=== PATIENT | female | born 1945 | race Caucasian/White ===

== ENCOUNTER → 2019-09-13 08:53 | Outpatient (BNVA) | payer MEDICARE, OTHER, SELFPAY | PROVIDERS: Family Provider Family Medicine; PCP Family Medicine; Referring Provider Family Medicine; Visit Provider Internal Medicine Rheumatology | DX: L40.0 Psoriasis vulgaris (principal); R74.0 Nonspecific elevation of levels of transaminase and lactic acid dehydrogenase [LDH]; Z79.899 Other long term (current) drug therapy; M81.0 Age-related osteoporosis without current pathological fracture; M76.71 Peroneal tendinitis, right leg; M76.72 Peroneal tendinitis, left leg; M19.041 Primary osteoarthritis, right hand; M19.042 Primary osteoarthritis, left hand | CPT/HCPCS: 36415; 80076; 99214 ==

== ENCOUNTER 2019-10-23 13:25 | Outpatient (CLI) | payer MEDICARE, OTHER, SELFPAY ==
--- NOTE | 2019-10-23 | MR_ITS ---
Chela Rodriguez 1945 MRI RIGHT ANKLE NONCONTRAST TECHNIQUE: Sagittal proton density, sagittal STIR, axial proton density, axial T1, axial T2 fat sat, coronal proton density, coronal proton density fat sat, coronal T2 fat sat. CLINICAL INFORMATION: Perineal tendinitis foot pain for years COMPARISON: None. FINDINGS: Ankle mortise is normal in appearance. No acute fractures. Normal talar dome. Mild degenerative arthritis at the ankle joint with mild degenerative narrowing. Subchondral cystic change involving the lateral malleolus with a degenerative cyst measuring 5 mm. Normal deltoid ligament and ATF. Distal Achilles is normal in appearance. Normal retrocalcaneal bursa. Degenerative cystic change involving the calcaneus at the anterior and middle subtalar facet. Small split tear involving the peroneus brevis with tendinopathy. Small amount of edema overlying the peroneal tendons at the level of the lateral malleolus. Small amount of tendinopathy distally in the peroneus longus. Peroneus longus is intact. Normal extensor and flexor compartment tendons. Tiny amount of tenosynovitis along the tibialis posterior and and flexor hallucis longus at the level of the calcaneus. Mild degenerative changes involving the tarsal bones. Subchondral cystic degenerative change at the TMT joints. Prominent plantar calcaneal spur measuring 12 mm. Normal visualized plantar fascia. Small ganglion cysts along the posterior process talus. IMPRESSION: 1. Small split tear involving the peroneus brevis with tendinopathy. Small amount of edema at the level of the lateral malleolus in the subcutaneous soft tissue. 2. Peroneus longus is intact with a small amount of tendinopathy distally. 3. Tenosynovitis along the tibialis posterior and flexor hallucis longus. 4. A few small ganglion cysts along the posterior process of the talus 5. Mild degenerative arthritis at the ankle mortise with subchondral cystic change involving the lateral malleolus. 6. Edema with subchondral cystic degenerative change involving the calcaneus at the anterior and middle subtalar facet 7. Prominent plantar calcaneal spur measuring 12 mm. MTDD
--- NOTE | 2019-10-23 15:15 | XR_ITS ---
WS: [id number] SCREENING DEXA SCAN [facility] CLINICAL INFORMATION: osteoporosis COMPARISON: August 05, 2016 FINDINGS: The L1-L4 bone mineral density measures 1.228 g/cm2. This corresponds to a T score score of 0.4 and Z score of 1.6. Left femoral neck bone mineral density measures 1.072 g/cm2. This corresponds to a T score of 0.5 and Z score of 1.8. Right femoral neck bone mineral density measures 0.992 g/cm2. This corresponds to a T score -0.1of an d Z score of 1.2. Mean femoral neck bone mineral density measures 1.032 g/cm2. This corresponds to a T score of 0.2 and Z score of 1.5. XR/XR DEXA axial skeleton* [id number] IMPRESSION: Normal bone mineralization. Patient's FRAX calculated 10 year probability for major osteoporotic fracture i s 13.5 % and osteoporotic hip fracture is 3.8%.
--- NOTE | 2019-10-23 18:25 | MR_ITS ---
MRI LEFT ANKLE NONCONTRAST TECHNIQUE: Sagittal proton density, sagittal STIR, axial proton density, axial T1, axial T2 fat sat, coronal proton density, coronal proton density fat sat, coronal T2 fat sat. CLINICAL INFORMATION: Perineal tendinitis COMPARISON: None. FINDINGS: Prominent peroneus brevis split tear with tendinopathy involving the distal peroneus brevis. Tenosynovitis along the peroneal tendon sheath. Small amount of subcutaneous edema overlying the lateral malleolus. Diffuse tendinopathy with thickening involving the peroneus brevis. Distal Achilles is normal in appearance. Normal retrocalcaneal bursa. Tenosynovitis along the flexor hallucis longus. Extensor compartment tendons are normal in appearance. Degenerative arthritis ankle mortise with subchondral cystic change along the distal tibial plafond and lateral malleolus. Normal deltoid ligament. Normal ATF. Talar dome is normal. Chronic appearing well-corticated avulsion along the tip of the medial malleolus with an additional tiny avulsion involving the distal tibial plafond adjacent to the distal fibula. Posterior talar spurring with a small amount of edema along the posterior process of the talus. Prominent plantar calcaneal spur measuring 10 mm. Normal plantar fascia. Mild degenerative arthritis involving the tarsal bones and TMT joints. . IMPRESSION: 1. Prominent peroneus brevis split tear with tenosynovitis along the peroneal tendon sheaths. 2. Diffuse tendinopathy involving the peroneus brevis. Subcutaneous edema at the level of the ankle. 3. Slight tenosynovitis involving the flexor hallucis longus. 4. Prominent plantar calcaneal spur measuring 10 mm. Normal plantar fascia. 5. Moderate degenerative arthritis ankle mortise with subchondral cystic change involving the tibial plafond and lateral malleolus. 6. Well-corticated chronic avulsions involving the tip of the medial malleolus and lateral aspect of the distal tibial plafond. MTDD
== END 2019-10-23 13:26 | disposition home or self-care (01) ==
LOC: RADWPI 13:31
PROVIDERS: Family Provider Family Medicine; PCP Family Medicine; Visit Provider Internal Medicine Rheumatology
DX: M81.0 Age-related osteoporosis without current pathological fracture (principal); M76.71 Peroneal tendinitis, right leg; M76.72 Peroneal tendinitis, left leg; M77.32 Calcaneal spur, left foot; S82.52XA Displaced fracture of medial malleolus of left tibia, initial encounter for closed fracture; X58.XXXA Exposure to other specified factors, initial encounter; M77.31 Calcaneal spur, right foot; R60.9 Edema, unspecified; M19.071 Primary osteoarthritis, right ankle and foot
CPT/HCPCS: 73721; 77080

== ENCOUNTER → 2019-11-13 08:59 | Outpatient (BNVA) | payer MEDICARE, OTHER, SELFPAY | PROVIDERS: Family Provider Family Medicine; PCP Family Medicine; Visit Provider Internal Medicine Rheumatology | DX: L40.0 Psoriasis vulgaris (principal); M15.4 Erosive (osteo)arthritis; M85.88 Other specified disorders of bone density and structure, other site | CPT/HCPCS: 99214; G0463 ==

== ENCOUNTER → 2020-02-13 10:50 | Outpatient (BNVA) | payer MEDICARE, OTHER, SELFPAY | PROVIDERS: Family Provider Family Medicine; PCP Family Medicine; Visit Provider Internal Medicine Rheumatology | DX: L40.0 Psoriasis vulgaris (principal); Z79.899 Other long term (current) drug therapy; L40.50 Arthropathic psoriasis, unspecified; M65.9 Synovitis and tenosynovitis, unspecified; M76.71 Peroneal tendinitis, right leg; M76.72 Peroneal tendinitis, left leg; M19.041 Primary osteoarthritis, right hand; M19.042 Primary osteoarthritis, left hand; R74.0 Nonspecific elevation of levels of transaminase and lactic acid dehydrogenase [LDH]; M85.88 Other specified disorders of bone density and structure, other site | CPT/HCPCS: 36415; 80076; 82565; 84550; 85025; 85651; 86140; 99214 ==

== ENCOUNTER 2020-05-19 09:02 | Outpatient (CLI) | payer MEDICARE, OTHER, SELFPAY ==
[2020-05-19 09:27] VITALS: BMI 32.5
--- NOTE | 2020-05-19 09:27 | ECG_ITS ---
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 Interpretive Statements NAME OF STUDY: EXERCISE SESTAMIBI STRESS TEST INDICATION: Chest Pain Baseline blood pressure of 169/99 mm Hg, heart rate of 60 beats per minute and oxygen saturation 96%. EKG showed normal sinus rhythm, normal axis with possible old septal infarct. Nonspecific ST depression. The patient exercised for 3 minutes 55 seconds on a standard Raheem protocol. Patient attained a maximum heart rate of 145 beats per minute(98 % of the maximum predicted heart rate) with a blood pressure at the peak exercise of 228/76 mm Hg. The EKG at the peak exercise revealed sinus tachycardia with significant artifact. patient did not have any chest pain or any significant arrhythmis with the exercise During the recovery phase, there were no new changes. Blood pressure at the end of the recovery phase was 158/88 mm Hg with a heart rate of 64 beats per minute oxygen saturation 96%. CONCLUSION: 1. Uninterpretable EKG at peak exercise due to artifact. 2. No exercise-induced chest pain or cardiac arrhythmia 3. Decreased exercise tolerance, attained a maximum of 4.6 METs. 4. Baseline hypertension blood pressure with hypertensive response to exercise. 5. Perfusion scan will be documented separately. Electronically Signed On 05-19-2020 18:03:04 CDT by Asha Gibson M.D. [id number]
--- NOTE | 2020-05-19 09:27 | NMCV_ITS ---
NM haider perf SPECT r/s* [id number] Chela Rodriguez Age: 74 Gender: F : 1945 Exam Date: 05/19/2020 10:08 Ordering Phys: Devon Walton MD Technologist: ANAM Ardon Exam Location: [facility] Indications: CHEST PAIN STRESS TEST Please see separate stress test report in [facility] for full findings IMAGE PROTOCOL Rest/Stress 1 Exercise Day Radiopharmaceutical Dose (mCi) Administration Site Administered by Rest: Tc-99m 10.6 IV ANAM Espinoza Sestamibi Stress:Tc-99m 32.7 IV ANAM Espinoza Sestamibi Rest: 19-May-2020 60 Discovery 630 Stress: 19-May-2020 15 Discovery 630 Radiopharmaceutical was injected at 87 % maximum heart rate. Images obtained in supine and prone position. SPECT RESULTS Technical Quality: Good Raw Data Analysis: Breast attenuation Image Corrections: No attenuation or motion correction applied Summed Stress Score: 8 Summed Rest Score: 14 Summed Difference Score: 1 PERFUSION FINDINGS There is a small in size, fixed, apical wall perfusion defect. This improves on prone imaging. Likely attenuation artifact versus prior infarct. There is a moderate in size, fixed inferolateral wall defect. This also improves on prone imaging. This likely represents attenuation artifact. FUNCTIONAL RESULTS (calculated via Gated SPECT) Stress Image LV EF (%): 69 Stress EDV (mL):91 TID: 1.14 Stress ESV (mL):28 FUNCTIONAL FINDINGS: There is normal left ventricular systolic function. IMPRESSIONS 1. Small in size, fixed apical wall perfusion defect. This likely represents attenuation artifact versus prior infarct. 2. Moderate in size, fixed inferolateral wall perfusion defect. This is likely secondary to attenuation artifact. 3. No ischemia is noted 3. Normal LV systolic function with EF of 69%. Cristo Chan MD (Electronically Signed) Final Date: 20 May 2020 17:45 S
[2020-05-19 11:22] VITALS: BP 155/88; PULSE 72
== END 2020-05-19 09:03 | disposition home or self-care (01) ==
LOC: CDL 09:04
PROVIDERS: PCP Family Medicine; Visit Provider Family Medicine
DX: R07.9 Chest pain, unspecified (principal)
CPT/HCPCS: 78452; 93017; A9500

== ENCOUNTER → 2020-07-21 08:55 | Outpatient (BNVA) | payer MEDICARE, OTHER, SELFPAY | PROVIDERS: PCP Family Medicine; Visit Provider Internal Medicine Rheumatology | DX: L40.0 Psoriasis vulgaris (principal); L40.50 Arthropathic psoriasis, unspecified; M65.9 Synovitis and tenosynovitis, unspecified; Z79.899 Other long term (current) drug therapy; M19.041 Primary osteoarthritis, right hand; M19.042 Primary osteoarthritis, left hand; M76.71 Peroneal tendinitis, right leg; M76.72 Peroneal tendinitis, left leg; M77.01 Medial epicondylitis, right elbow; M85.80 Other specified disorders of bone density and structure, unspecified site; Z22.7 Latent tuberculosis | CPT/HCPCS: 99214 ==

== ENCOUNTER → 2020-10-07 11:52 | Outpatient (BNVA) | payer MEDICARE, OTHER, SELFPAY | PROVIDERS: PCP Family Medicine; Visit Provider Student in an Organized Health Care Education/Training Program | DX: Z22.7 Latent tuberculosis (principal); L40.50 Arthropathic psoriasis, unspecified; Z79.899 Other long term (current) drug therapy | CPT/HCPCS: 80076 ==

== ENCOUNTER → 2020-11-04 11:30 | Outpatient (BNVA) | payer MEDICARE, OTHER, SELFPAY | PROVIDERS: PCP Family Medicine; Visit Provider Student in an Organized Health Care Education/Training Program | DX: Z22.7 Latent tuberculosis (principal) | CPT/HCPCS: 80053; 85025 ==

== ENCOUNTER → 2020-12-03 09:02 | Outpatient (BNVA) | payer MEDICARE, OTHER, SELFPAY | PROVIDERS: PCP Family Medicine; Visit Provider Internal Medicine Rheumatology | DX: L40.50 Arthropathic psoriasis, unspecified (principal); L40.0 Psoriasis vulgaris; M15.4 Erosive (osteo)arthritis; M76.71 Peroneal tendinitis, right leg; M76.72 Peroneal tendinitis, left leg; M85.80 Other specified disorders of bone density and structure, unspecified site; R74.01 Elevation of levels of liver transaminase levels; Z79.899 Other long term (current) drug therapy | CPT/HCPCS: 99214 ==

== ENCOUNTER → 2020-12-16 11:32 | Outpatient (BNVA) | payer MEDICARE, OTHER, SELFPAY | PROVIDERS: PCP Family Medicine; Visit Provider Student in an Organized Health Care Education/Training Program | DX: Z22.7 Latent tuberculosis (principal); L40.50 Arthropathic psoriasis, unspecified; L40.9 Psoriasis, unspecified | CPT/HCPCS: 80053 ==

== ENCOUNTER → 2021-02-17 11:42 | Outpatient (BNVA) | payer MEDICARE, OTHER, SELFPAY | PROVIDERS: PCP Family Medicine; Visit Provider Nurse Practitioner Family | DX: Z20.822 Contact with and (suspected) exposure to COVID-19 (principal) | CPT/HCPCS: 87635 ==

== ENCOUNTER → 2021-03-26 08:53 | Outpatient (BNVA) | payer MEDICARE, OTHER, SELFPAY | PROVIDERS: PCP Family Medicine; Visit Provider Internal Medicine Rheumatology | DX: L40.0 Psoriasis vulgaris (principal); L40.50 Arthropathic psoriasis, unspecified; M65.9 Synovitis and tenosynovitis, unspecified; Z79.899 Other long term (current) drug therapy; M19.041 Primary osteoarthritis, right hand; M19.042 Primary osteoarthritis, left hand; M85.80 Other specified disorders of bone density and structure, unspecified site; R74.01 Elevation of levels of liver transaminase levels; Z71.89 Other specified counseling | CPT/HCPCS: 99214 ==

== ENCOUNTER 2021-03-27 10:17 | Outpatient (CLI) | payer MEDICARE, OTHER, SELFPAY ==
[2021-03-27 11:20] LABS: Basophils % 0.6 %; Eosinophils # 0.1 10^3/uL (0.0-0.8); Eosinophils % 2.2 %; Hematocrit 38.8 % (37.0-47.0); Hemoglobin 13.4 g/dL (11.5-15.3); Lymphocytes # 1.8 10^3/uL (0.8-4.8); Lymphocytes % 32.9 %; Mean Corpuscular HGB Conc 34.5 g/dL (30.0-36.0); Mean Corpuscular Hemoglobin 33.3 pg (28.0-34.0); Mean Corpuscular Volume 96.3 fL (81-99); Mean Platelet Volume 10.3 fL (7.4-10.4); Monocytes # 0.4 10^3/uL (0.2-0.9); Monocytes % 7.2 %; Neutrophils # 3.05 10^3/uL (1.8-7.7); Neutrophils % 56.4 %; Nucleated Red Blood Cells % 0 %; Platelet Count 268 10^3/cmm (130-400); Red Blood Count 4.03 10^6/uL (4.1-5.3); Red Cell Distribution Width 13.4 % (12.1-15.1); White Blood Count 5.4 10^3/uL (4.0-10.0)
[2021-03-27 11:49] LABS: Alanine Aminotransferase 45 U/L (0-33); Albumin Level 4.5 g/dL (3.5-5.2); Alkaline Phosphatase 83 IU/L (35-105); Aspartate Amino Transferase 33 U/L (0-32); C Reactive Protein 0.6 mg/L (0.0-4.9); Globulin 2.4 g/dL (1.3-4.6); Total Bilirubin 0.6 mg/dL (0.15-1.2); Total Protein 6.9 g/dL (6.6-8.7)
== END 2021-03-27 10:18 | disposition home or self-care (01) ==
PROVIDERS: PCP Family Medicine; Visit Provider Internal Medicine Rheumatology
DX: L40.50 Arthropathic psoriasis, unspecified (principal); M19.041 Primary osteoarthritis, right hand; M19.042 Primary osteoarthritis, left hand
CPT/HCPCS: 36415; 80076; 82565; 85025; 86140

== ENCOUNTER 2021-06-26 08:44 | Outpatient (CLI) | payer MEDICARE, OTHER, SELFPAY ==
--- NOTE | 2021-06-26 08:56 | XR_ITS ---
WS: [id number] Lumbar spine, 3 views, 06/26/2021 Clinical Data: ACUTE BACK PAIN Comparison: None. Findings: No compression fractures are seen. There is disc space narrowing at L4-L5 and L5-S1. There is an ante rior subluxation of L4 on L5 of 0.4 cm. There is minimal osteoarthritis of the vertebral bodies L1-L5 . Diffuse osteoporosis is seen. The transverse processes and SI joints are normal. There is calcification in the wall of the abdominal aorta but no aneurysm. There are clips in the rig ht upper quadrant from cholecystectomy. XR/XR lumbar spine 2-3V* [id number] Impression: 1. Degenerative disc narrowing at L4-L5 and L5-S1. 2. Minimal osteoarthritis and diffuse osteoporosis. 3. Anterior subluxation of 0.4 cm at L4-L5.
--- NOTE | 2021-06-26 08:57 | XR_ITS ---
WS: [id number] Sacrum and coccyx, 3 views, 06/26/2021 Clinical Data: ACUTE BACK PAIN Comparison: None. Findings: No fractures or dislocations are seen. The SI joints and pubic symphysis are unremarkable. No bone de struction or erosion is seen. XR/XR sacrum coccyx min 2V [id number] Impression: Negative sacrum and coccyx.
== END 2021-06-26 08:45 | disposition home or self-care (01) ==
LOC: RAD 08:50
PROVIDERS: PCP Family Medicine; Visit Provider Family Medicine
DX: M81.0 Age-related osteoporosis without current pathological fracture (principal); M47.816 Spondylosis without myelopathy or radiculopathy, lumbar region; S33.140A Subluxation of L4/L5 lumbar vertebra, initial encounter; X58.XXXA Exposure to other specified factors, initial encounter
CPT/HCPCS: 72100; 72220

== ENCOUNTER → 2021-07-07 09:02 | Outpatient (BNVA) | payer MEDICARE, OTHER, SELFPAY | PROVIDERS: PCP Family Medicine; Visit Provider Internal Medicine Rheumatology | DX: Z79.899 Other long term (current) drug therapy (principal); L40.50 Arthropathic psoriasis, unspecified | CPT/HCPCS: 36415; 80076; 82565; 85025; 86140 ==

== ENCOUNTER → 2021-09-16 11:00 | Outpatient (BNVA) | payer MEDICARE, SELFPAY | PROVIDERS: PCP Family Medicine; Visit Provider Internal Medicine Rheumatology | DX: L40.9 Psoriasis, unspecified (principal); Z79.899 Other long term (current) drug therapy; M19.041 Primary osteoarthritis, right hand; M19.042 Primary osteoarthritis, left hand; Z71.89 Other specified counseling; Z22.7 Latent tuberculosis | CPT/HCPCS: 99214 ==

== ENCOUNTER 2021-12-09 10:08 | Emergency (ER) | payer MEDICARE, SELFPAY ==
[2021-12-09 11:15] VITALS: BP 172/112; PULSE 88; RESP 15; TEMP 36.8; O2SAT 96; BMI 32.0
--- NOTE | 2021-12-09 11:23 | W.ED.BACK ---
HPI - Back Pain/Injury General: Chief Complaint: Back Pain/Injury Stated Complaint: lower back pain/trouble sleeping Time Seen by Provider: 12/09/21 11:23 History of Present Illness: Ms. Rodriguez is a 76-year-old lady with complex past medical history including chronic opioid use secondary to chronic pain, history of DMARD use who presents to the emergency department due to back pain. She reports onset of symptoms approximately 10 days ago which was preceded by being on her feet with uncomfortable shoes at a wedding. She subsequently developed a burning severe pain that radiates from her left SI joint region down the back of her thigh and outside of her leg wrapping down to the bottom of the foot. This is associated with hyperalgia. She saw her PCP and tried home cares and received a steroid shot which provided mild transient relief. She subsequently was given a prescription for steroids and eventually is now been on Celebrex for 3 days. Despite these treatments symptoms have persisted. Denies saddle anesthesia, symptoms are worse at night however no reported new night sweats, no loss of bowel control. No other specific changes in health, exacerbating, or alleviating factors identified. Onset (ago): day(s) Severity: severe Quality: burning Location: lumbar spine and left lower back Radiation: left upper leg and left leg below the knee Exacerbating factors: movement and other Review of Systems General: Reports: 10 or more systems reviewed and unremarkable except in HPI and below PFSH ED PFSH: Medical History High risk medication use Immunization counseling Latent tuberculosis by blood test Osteoarthritis Peroneal tendinitis of both lower legs Psoriasis Psoriatic arthritis Rotator cuff arthropathy of right shoulder Tenosynovitis of ankle Surgical History H/O: hysterectomy History of appendectomy History of cholecystectomy History of tonsillectomy History of tubal ligation Family History Mother Diabetes Hypertension Heart disease Brother Hypertension Sister Hypertension Grandmother Stroke Other Cancer Social History Smoking and tobacco status: never smoked Alcohol intake: never History of recent travel: No Physical Exam Const: COMMON NORMALS: alert GENERAL APPEARANCE: cooperative and well developed HENMT: COMMON NORMALS: normocephalic and atraumatic HEAD & SCALP: normocephalic and atraumatic Eye: COMMON NORMALS: conjunctivae normal CONJUNCTIVA: Yes conjunctivae normal SCLERA: sclerae normal Neck/C-Spine: COMMON NORMALS: supple GENERAL: Yes trachea midline Resp: COMMON NORMALS: normal respiratory effort and clear to auscultation bilaterally EFFORT & INSPECTION: Yes able to speak in complete sentences AUSCULTATION: clear to auscultation bilaterally Cardio: COMMON NORMALS: regular rate and regular rhythm RATE: regular rate RHYTHM: regular rhythm GI: COMMON NORMALS: Soft to palpation PALPATION: Yes Soft to palpation and No Tenderness to palpation present (GI) PERCUSSION: normal to percussion Back/Pelvis: LUMBAR SPINE/LOWER BACK: Yes lumbar spinal tenderness Extremity: GENERAL: Yes normal exam except as noted and No edema Neuro: COMMON NORMALS: moves all extremities, no focal motor deficits and no sensory deficits noted SENSORIUM/ORIENTATION: Yes alert and No Orientation impaired Psych: COMMON NORMALS: mental status grossly normal and Normal thought process present THOUGHT PROCESS: Normal thought process present Skin: NARRATIVE SKIN EXAM: Small papular lesions on ankle consistent with likely insect bite. No vesicles or evidence of shingles. Course ED course: - Patient was seen and evaluated by me at bedside - Patient placed on cardiac monitors, IV access obtained - Initial evaluation notable for exam as above. TTP likely SI joint though some midline tenderness present and patient high risk secondary to medication use. - Labs personally interpreted by me -Symptom treatment ordered - Labs notable for negative urinalysis for obvious cause of symptoms - Imaging notable for degenerative changes including moderate central stenosis and left to right narrowing of thecal sac at L4-L5. Slight impingement on L4 nerve root left and other degenerative changes which have progressed since 2016. - Upon serial reexamination after treatment the patient was improved - Based on patient history, evaluation, and testing as interpreted the most likely cause of the patient's condition is multifactorial likely secondary to CT findings however there are no red flag symptoms associated with patient's pain and therefore further evaluation can be completed in the outpatient setting. - The results of ED evaluation were discussed with the patient including prescriptions and/or symptomatic cares (if applicable) including appropriate and responsible use, followup plan, and return precautions. The patient verbalized understanding and felt safe for discharge. - Patient discharged in satisfactory condition. Note: Click bubbles or prepopulated cruz in note writing are used for assistance with data collection and billing and are inherently more limited than narrative and other text portions of this note. Please use narrative for additional clinical history and defer to narrative/free test for any case of contradictory information. If information appears in only free text or click bubble it should be considered present or absent as reported. Please contact note commercial real estate underwriter for clarifications of clinical information or contradictory information. MDM is a brief summary, contradictory or erroneous seeming information should be clarified and full note should be reviewed. Vital Signs: Vital signs: Vital Signs Temperature 98.2 F 12/09/21 11:15 Pulse Rate 82 12/09/21 14:05 Respiratory Rate 22 H 12/09/21 14:05 Blood Pressure 168/98 12/09/21 14:05 Pulse Oximetry 92 12/09/21 14:05 MDM - Back Pain/Injury Medical Decision Making 76-year-old lady with complex past medical history presenting with left leg radicular pain. Improved with treatment. CT evidence consistent with physical exam findings. No red flag symptoms. Satisfactory for outpatient follow-up. Medical Records I reviewed the patient's medical records. Labs I reviewed the patient's lab results. Radiology Impressions Lumbar Spine CT 12/09/21 11:55 IMPRESSION: 1. Mild lumbar curve. No acute compression. 2. Grade 1 anterolisthesis L4 on L5 with moderate central canal stenosis and LEFT to RIGHT narrowing of the thecal sac. This is progressed compared to 2016. This can be followed up with MRI. 3. Slight narrowing of the LEFT subarticular recess L3-L4 with slight impingement traversing LEFT L4 nerve root. 4. Mild LEFT L3-L4 and RIGHT L4-L5 foraminal narrowing. 5. Advanced facet arthropathy L4-L5 and L5-S1. Laboratory Results Urine Color Yellow (Yellow) 12/09/21 12:10 Urine Appearance Clear (CLEAR) 12/09/21 12:10 Urine pH 6.5 (5-7) 12/09/21 12:10 Ur Specific [place] 1.010 (1.005-1.030) 12/09/21 12:10 Urine Protein 1+ (Negative) H 12/09/21 12:10 Urine Glucose (UA) 2+ (Normal) H 12/09/21 12:10 Urine Ketones Negative (Negative) 12/09/21 12:10 Urine Blood Neg (Negative) 12/09/21 12:10 Urine Nitrate Negative (Negative) 12/09/21 12:10 Urine Bilirubin Neg (Negative) 12/09/21 12:10 Urine Urobilinogen Neg mg/dL (Negative) 12/09/21 12:10 Ur Leukocyte Esterase Negative (Negative) 12/09/21 12:10 Urine RBC Rare /hpf (0-2) 12/09/21 12:10 Urine WBC Rare /hpf (0-5) 12/09/21 12:10 Ur Squamous Epith Cells Rare /hpf (0-5) 12/09/21 12:10 Amorphous Sediment Not Reportable 12/09/21 12:10 Urine Bacteria None /hpf (NONE) 12/09/21 12:10 Discharge Plan Discharge Patient Disposition: Home Clinical Impression: Back pain, Lumbar radiculopathy Condition: Stable Prescriptions: New oxycodone 5 mg tablet 5 mg PO Q6H PRN (Reason: pain) Qty: 20 0RF methocarbamol 750 mg tablet 750 mg PO Q6H Qty: 20 0RF No Action aspirin 325 mg tablet 325 mg PO DAILY 0RF glimepiride [Amaryl] 4 mg tablet 4 mg PO BID 0RF furosemide 40 mg tablet 40 mg PO BID 0RF hydrocodone-acetaminophen 7.5-325 mg tablet See Rx Instructions .ROUTE Q6H PRN0RF Rx Instructions: 1-2 tabs every 6 hours PRN; spironolactone 25 mg tablet 25 mg PO DAILY 0RF cholecalciferol (vitamin D3) 1,000 unit capsule 1,000 unit PO BID 0RF cetirizine [Zyrtec] 10 mg tablet 5 mg PO DAILY 0RF metformin 500 mg tablet 1,000 mg PO DAILY 0RF potassium chloride 20 mEq packet 20 meq PO DAILY 0RF hydroxychloroquine 200 mg tablet 200 mg PO BID Qty: 60 3RF ondansetron HCl [Zofran] 4 mg tablet 4 mg PO Q8H PRN (Reason: nausea and vomiting) Qty: 30 0RF methotrexate sodium 2.5 mg tablet 10 mg PO .once a week Qty: 20 3RF Xeljanz 5 mg tablet 5 mg PO BID Qty: 60 3RF folic acid 1 mg tablet 1 mg PO DAILY Qty: 90 1RF Discharge Orders: Discharge ED (Routine); Ordered 12/09/21 Ordered By: Venkat Shannon Referrals: Devon Walton MD [Primary Care Provider] - Discharge Diet: Usual diet Discharge Activity: Increase activity as tolerated Patient Instructions: Lumbar Radiculopathy (ED), Opioid Safety Activity Restrictions/Additional Instructions: Thank you for visiting the emergency department. You were seen and evaluated for leg pain and back pain. This most likely is secondary to a lumbar radiculopathy which is irritation of the nerves which cause pain. As discussed, you do have degenerative changes in your spine however based on history and exam I do not believe that there is no indication for hospitalization. Please follow-up with your primary care provider. Please follow-up with pain management. I will place a case management referral for follow-up with orthopedic spine if desired. Please return to the emergency department for uncontrolled pain, new inability to control bowel or bladder, numbness in a distribution between your legs or groin area, or anything else that you are concerned about and feel needs emergency department evaluation. Coding Level of Care Code ED Audio Visual Engineer for Chg Fwd Exam Comprehensive
--- NOTE | 2021-12-09 11:55 | CT_ITS ---
WS: [id number] CT LUMBAR SPINE TECHNIQUE: Noncontrast CT of the lumbar spine with coronal and sagittal reformatted images. CLINICAL INFORMATION: acute on chronic back pain, L radiculopathy COMPARISON: MRI 2016 DLP: 2150.[address] scans at [facility] use at least one of these dose optimization techniques: automated e xposure control; mA and/or kV adjustment per patient size (includes targeted exams where dose is matc hed to clinical indication); or iterative reconstruction. FINDINGS: Mild lumbar curve. No acute compression. Grade 1 anterolisthesis L4 on L5. This is unchanged compared to 2016. Grade 1 anterolisthesis measures 4.3 mm. No acute compression fractures. Disc space narrowing worse L5-S1 with vacuum disc phenomenon. L1-L2: Slight retrolisthesis. Mild annular bulging with slight effacement of ventral thecal sac. Mild narrowing of the subarticular recess bilaterally. Moderate facet arthropathy. Foramen are patent. L2-L3: Mild annular bulging. Slight narrowing of the subarticular recess bilaterally. Moderate facet arthropathy with ligamentum flavum hypertrophy. Foramen are patent. L3-L4: Mild annular bulging with slight effacement of ventral thecal sac. Slight narrowing of the LEF T subarticular recess with slight impingement traversing LEFT L4 nerve root. Moderate facet arthropat hy. Mild bilateral foraminal narrowing LEFT greater than RIGHT. L4-L5: Moderate central canal stenosis with LEFT to RIGHT narrowing of the thecal sac. Impingement tr aversing L5 nerve roots bilaterally. Advanced facet arthropathy with ligamentum flavum flavum hypertr ophy. Mild RIGHT foraminal narrowing. Central canal stenosis appears progressed compared to 2016. L5-S1: Mild disc bulging with slight effacement of ventral thecal sac. Mild LEFT foraminal narrowing. Moderate to advanced facet arthropathy. Spinal canal is patent. Adrenal glands are normal. Aortic calcification. Normal caliber abdominal aorta. CT/CT lumbar spine wo con* [id number] IMPRESSION: 1. Mild lumbar curve. No acute compression. 2. Grade 1 anterolisthesis L4 on L5 with moderate central canal stenosis and L EFT to RIGHT narrowing of the thecal sac. This is progressed compared to 2016. This can be followed up with MRI. 3. Slight narrowing of the LEFT subarticular recess L3-L4 with slight impingem ent traversing LEFT L4 nerve root. 4. Mild LEFT L3-L4 and RIGHT L4-L5 foraminal narrowing. 5. Advanced facet arthropathy L4-L5 and L5-S1.
[2021-12-09] MEDS: methocarbamol 750 mg Tablet PO (12:02)
[2021-12-09 12:03] VITALS: RESP 17
[2021-12-09] MEDS: morphine 4 mg/mL SDV 1 mL IM (12:03)
[2021-12-09] MEDS: ketorolac 30 mg/mL INJ IM (12:03)
[2021-12-09 13:04] LABS: Add Urine Microscopic? YES; Bilirubin Urine Neg (Negative); Blood Urine Neg (Negative); Glucose Urine UA 2+ (Normal); Ketones Urine Negative (Negative); Leukocyte Esterase Urine Negative (Negative); Nitrate Urine Negative (Negative); Protein Urine 1+ (Negative); Urine Appearance Clear (CLEAR); Urine Color Yellow (Yellow); Urobilinogen Urine Neg (Negative); pH Urine 6.5 (5-7)
[2021-12-09 13:05] LABS: Add Urine Culture? No; RBC Urine RARE /hpf (0-2); Squamous Epithelial Cell Urine RARE /hpf (0-5); WBC Urine RARE /hpf (0-5)
[2021-12-09 14:05] VITALS: BP 168/98; PULSE 82; RESP 22; O2SAT 92
== END 2021-12-09 14:07 | disposition home or self-care (01) ==
PROVIDERS: Emergency Provider Emergency Medicine; PCP Family Medicine
DX: M54.50 Low back pain, unspecified (principal); M54.16 Radiculopathy, lumbar region
CPT/HCPCS: 72131; 81001; 96372; J1885; J2270

== ENCOUNTER 2022-01-11 11:11 | Outpatient (CLI) | payer MEDICARE, SELFPAY ==
[2022-01-11 11:41] LABS: Basophils % 0.5 %; Eosinophils # 0.1 10^3/uL (0.0-0.8); Eosinophils % 1.5 %; Hematocrit 38.6 % (37.0-47.0); Hemoglobin 13.3 g/dL (11.5-15.3); Lymphocytes # 2.3 10^3/uL (0.8-4.8); Lymphocytes % 28.3 %; Mean Corpuscular HGB Conc 34.5 g/dL (30.0-36.0); Mean Corpuscular Hemoglobin 33.3 pg (28.0-34.0); Mean Corpuscular Volume 96.5 fl (81-99); Monocytes # 0.7 10^3/uL (0.2-0.9); Monocytes % 8.7 %; Neutrophils # 4.77 10^3/uL (1.8-7.7); Neutrophils % 60.1 %; Nucleated Red Blood Cells % 0 %; Platelet Count 340 10^3/cmm (130-400); Red Cell Distribution Width 14.1 % (12.1-15.1); White Blood Count 7.9 10^3/uL (4.0-10.0)
[2022-01-11 12:17] LABS: Alanine Aminotransferase 28 U/L (0-33); Albumin Level 4.6 g/dL (3.5-5.2); Alkaline Phosphatase 67 IU/L (35-105); Aspartate Amino Transferase 27 U/L (0-32); Total Bilirubin 0.4 mg/dL (0.15-1.2); Total Protein 7.6 g/dL (6.6-8.7)
== END 2022-01-11 11:12 | disposition home or self-care (01) ==
LOC: LAB 11:14
PROVIDERS: PCP Family Medicine; Visit Provider Internal Medicine Rheumatology
DX: M19.90 Unspecified osteoarthritis, unspecified site (principal); Z79.899 Other long term (current) drug therapy; L40.50 Arthropathic psoriasis, unspecified; L40.9 Psoriasis, unspecified
CPT/HCPCS: 80076; 82565; 85025; 86140

== ENCOUNTER → 2022-01-13 09:17 | Outpatient (BNVA) | payer MEDICARE, SELFPAY | PROVIDERS: PCP Family Medicine; Visit Provider Internal Medicine Rheumatology | DX: L40.50 Arthropathic psoriasis, unspecified (principal); L40.9 Psoriasis, unspecified; M19.041 Primary osteoarthritis, right hand; M19.042 Primary osteoarthritis, left hand; R76.12 Nonspecific reaction to cell mediated immunity measurement of gamma interferon antigen response without active tuberculosis; R74.01 Elevation of levels of liver transaminase levels; M85.80 Other specified disorders of bone density and structure, unspecified site; Z79.899 Other long term (current) drug therapy | CPT/HCPCS: 99214 ==

== ENCOUNTER 2022-01-13 14:02 | Outpatient (CLI) | payer MEDICARE, SELFPAY ==
--- NOTE | 2022-01-13 14:15 | USCV_ITS ---
Chela Rodriguez Age: 76 Gender: F : 1945 Exam Date: 01/13/2022 14:22 Ordering Phys: Guanakito Kemp MD Technologist: JUDI Exam Location: [facility] Indication: LLE PAIN AND SWELLING HISTORY: Lower extremity swelling. Lower extremity pain. PROCEDURES: Venous duplex imaging was performed in only the left lower extremity. The following venous structures were evaluated: common femoral vein, profunda vein, proximal portion of the greater saphenous vein, superficial femoral vein, and the popliteal vein. In addition, the posterior tibial and peroneal trunk were evaluated. Serial compression, augmentation maneuvers, and spectral Doppler flow evaluation were performed. FINDINGS: Normal 2-D Doppler and augmentation and compressibility throughout the lower extremity venous structures. Additional imaging through the proximal calf veins also reveals no thrombus. Limited evaluation of the greater saphenous vein is patent with no thrombus. CONCLUSIONS No DVT left lower extremity. Dr. Pattie Michelle DO (Electronically Signed) Final Date: 13 Jan 2022 16:45 S
== END 2022-01-13 14:03 | disposition home or self-care (01) ==
LOC: RAD 14:06
PROVIDERS: PCP Family Medicine; Visit Provider Internal Medicine Rheumatology
DX: I82.409 Acute embolism and thrombosis of unspecified deep veins of unspecified lower extremity (principal); M79.662 Pain in left lower leg; R60.0 Localized edema
CPT/HCPCS: 93971

== ENCOUNTER → 2022-01-28 08:57 | Outpatient (BNVA) | payer MEDICARE, SELFPAY | PROVIDERS: PCP Family Medicine; Referring Provider Family Medicine; Visit Provider Orthopaedic Surgery | DX: M43.16 Spondylolisthesis, lumbar region (principal) | CPT/HCPCS: 99204 ==

== ENCOUNTER 2022-03-19 14:30 | Outpatient (CLI) | payer MEDICARE, SELFPAY ==
--- NOTE | 2022-03-19 15:15 | MR_ITS ---
WS: [id number] MRI LUMBAR SPINE NONCONTRAST TECHNIQUE: Sagittal T1, T2 and STIR imaging. Axial T1 and T2 imaging. CLINICAL INFORMATION: low back pain COMPARISON: MRI 4 2015 FINDINGS: Mild lumbar curve. No acute compression. Grade 1 anterolisthesis L4 on L5 measuring 5 mm unchanged fr om previous. No high-grade central canal stenosis. L1-L2: Slight retrolisthesis. Mild annular bulging. Slight narrowing of the RIGHT subarticular recess . Mild facet arthropathy. Spinal canal is patent. L2-L3: Mild annular bulging. Mild facet arthropathy. Spinal canal and foramen are patent. L3-L4: Mild annular bulging. Impingement on the LEFT subarticular recess and traversing LEFT L4 nerve root. Mild LEFT foraminal narrowing. RIGHT foramen is patent. Mild facet arthropathy. L4-L5: Grade 1 anterolisthesis. Mild disc bulging with impingement on the RIGHT subarticular recess a nd traversing RIGHT L5 nerve root. Moderate facet arthropathy. Mild RIGHT foraminal narrowing. L5-S1: Mild disc osteophytic ridging. Moderate facet arthropathy. Spinal canal and foramen are patent . Small disc osteophyte protrusions in the cervical spine at C5-C6 and C6-C7. Small central protrusion T7-T8 in the mid cervical spine. Tiny RIGHT renal cyst. MR/MR lumbar spine wo con* [id number] IMPRESSION: 1. Mild lumbar curve. No acute compression. No high-grade central canal stenos is. 2. Stable grade 1 anterolisthesis L4 on L5 with impingement traversing right L 5 nerve root in the subarticular recess. This appears slightly progressed gustavo red to previous. 3. Shallow subarticular disc bulging LEFT L3-L4 impinges the traversing LEFT L 4 nerve root in the subarticular recess. This is progressed compared to previou s. Mild LEFT L3-L4 foraminal narrowing is also progressed. 4. Slight narrowing of the RIGHT L2-L3 subarticular recess with mild RIGHT for aminal narrowing. This is also progressed compared to previous.
== END 2022-03-19 14:31 | disposition home or self-care (01) ==
LOC: RAD 14:35
PROVIDERS: PCP Family Medicine; Visit Provider Orthopaedic Surgery
DX: M54.50 Low back pain, unspecified (principal)
CPT/HCPCS: 72148

== ENCOUNTER → 2022-05-18 10:57 | Outpatient (BNVA) | payer MEDICARE, SELFPAY | PROVIDERS: PCP Family Medicine; Visit Provider Internal Medicine Rheumatology | DX: L40.50 Arthropathic psoriasis, unspecified (principal); Z79.899 Other long term (current) drug therapy; Z71.89 Other specified counseling; L40.0 Psoriasis vulgaris; M15.4 Erosive (osteo)arthritis; R74.01 Elevation of levels of liver transaminase levels; M85.80 Other specified disorders of bone density and structure, unspecified site; G93.89 Other specified disorders of brain | CPT/HCPCS: 99214 ==

== ENCOUNTER → 2022-06-03 08:06 | Outpatient (BNVA) | payer MEDICARE, SELFPAY | PROVIDERS: PCP Family Medicine; Visit Provider Family Medicine | DX: Z79.899 Other long term (current) drug therapy (principal); L40.50 Arthropathic psoriasis, unspecified | CPT/HCPCS: 80076; 82565; 85025; 86140 ==

== ENCOUNTER → 2022-09-22 10:33 | Outpatient (BNVA) | payer MEDICARE, SELFPAY | PROVIDERS: PCP Family Medicine; Visit Provider Internal Medicine Rheumatology | DX: L40.50 Arthropathic psoriasis, unspecified (principal); Z79.899 Other long term (current) drug therapy; L40.9 Psoriasis, unspecified; Z71.89 Other specified counseling | CPT/HCPCS: 80076; 82565; 83735; 84132; 85025; 86140; 99214 ==

== ENCOUNTER → 2022-12-29 13:51 | Outpatient (BNVA) | payer MEDICARE, SELFPAY | PROVIDERS: PCP Family Medicine; Visit Provider Internal Medicine Rheumatology | DX: L40.50 Arthropathic psoriasis, unspecified (principal); Z79.899 Other long term (current) drug therapy; L40.9 Psoriasis, unspecified; Z71.89 Other specified counseling | CPT/HCPCS: 99214 ==

== ENCOUNTER 2023-03-22 07:47 | Outpatient (RCR) | payer MEDICARE, SELFPAY | END 2023-04-04 23:59 | disposition home or self-care (01) | LOC: SPT 07:47 | PROVIDERS: PCP Family Medicine; Visit Provider Family Medicine | DX: M54.9 Dorsalgia, unspecified (principal); M25.559 Pain in unspecified hip | CPT/HCPCS: 97161 ==

== ENCOUNTER → 2023-03-30 13:38 | Outpatient (BNVA) | payer MEDICARE, SELFPAY | PROVIDERS: PCP Family Medicine; Visit Provider Internal Medicine Rheumatology | DX: L40.50 Arthropathic psoriasis, unspecified (principal); Z79.899 Other long term (current) drug therapy; L40.9 Psoriasis, unspecified; Z71.89 Other specified counseling | CPT/HCPCS: 82565; 85025; 86140; 99214 ==

== ENCOUNTER 2023-04-05 06:00 | Outpatient (RCR) | payer MEDICARE, SELFPAY | END 2023-05-05 23:59 | disposition home or self-care (01) | LOC: SPT 06:00 | PROVIDERS: PCP Family Medicine; Visit Provider Family Medicine | DX: M54.9 Dorsalgia, unspecified (principal); M25.559 Pain in unspecified hip; G89.29 Other chronic pain | CPT/HCPCS: 97110 ==

== ENCOUNTER 2023-05-06 06:00 | Outpatient (RCR) | payer MEDICARE, SELFPAY | END 2023-06-04 23:59 | disposition home or self-care (01) | LOC: SPT 06:00 | PROVIDERS: PCP Family Medicine; Visit Provider Family Medicine | DX: M54.50 Low back pain, unspecified (principal) | CPT/HCPCS: 97110 ==

== ENCOUNTER 2023-10-01 13:59 | Inpatient (IN) | payer MEDICARE, SELFPAY ==
[2023-10-01] VITALS (7 sets, daily range): BP systolic 132–150; BP diastolic 78–92; PULSE 75–105; RESP 18–28; TEMP 37; O2SAT 95–97; BMI 31.8; BMI 34.0
--- NOTE | 2023-10-01 14:12 | ECG_ITS ---
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 Measurements Intervals [place] Rate: 98 P: 0 NC: 0 QRS: 87 QRSD: 93 T: 66 QT: 360 QTc: 462 Interpretive Statements Multifocal atrial rhythm MODERATE ST DEPRESSION [0.05+ mV ST DEPRESSION] INTERPRETATION BASED ON A DEFAULT AGE OF 40 YEARS Compared to ECG 10/25/2014 09:46:06 ST (T wave) deviation now present Sinus bradycardia no longer present T-wave abnormality no longer present Electronically Signed On 10-01-2023 21:57:36 WATER PIPE INSTALLER by Jade Vargas M.D. [id number]
--- NOTE | 2023-10-01 14:12 | XRR_ITS ---
PROCEDURE INFORMATION: Exam: XR Chest Exam date and time: 10/01/2023 2:52 PM Age: 78 years old Clinical indication: Pain; Chest pressure; Additional info: Chest pain TECHNIQUE: Imaging protocol: Radiologic exam of the chest. Views: 1 view. COMPARISON: CR XR chest 2V* [id number] 01/25/2019 11:03 AM FINDINGS: Lungs: Increased interstitial lung markings along the periphery of both lungs. No consolidation. Pleural spaces: No pleural effusion. No pneumothorax. Heart/Mediastinum: No cardiomegaly. Bones/joints: Unremarkable. XR/XR chest 1V portable [id number] IMPRESSION: Increased interstitial lung markings most suggestive of pulmonary edema.
[2023-10-01 14:43] LABS: Basophils # 0.1 10^3/uL (0.0-0.1); Basophils % 0.4 %; Eosinophils % 0.2 %; Hematocrit 43.4 % (36-47); Lymphocytes # 1.4 10^3/uL (0.8-4.8); Lymphocytes % 8.7 %; Mean Corpuscular HGB Conc 34.8 g/dL (30-55); Mean Corpuscular Hemoglobin 32.2 pg (27-33); Mean Corpuscular Volume 92.5 fl (85-98); Mean Platelet Volume 10.6 fL (7.4-10.4); Monocytes # 0.8 10^3/uL (0.2-0.9); Monocytes % 5.4 %; Neutrophils # 13.16 10^3/uL (1.8-7.7); Neutrophils % 84.8 %; Nucleated Red Blood Cells % 0 %; Platelet Count 270 10^3/cmm (157-399); Red Blood Count 4.69 10^6/uL (3.85-5.65); Red Cell Distribution Width 13.1 % (12.1-15.1); White Blood Count 15.51 10^3/uL (3.29-11.43)
[2023-10-01 14:45] LABS: Influenza A by IFA negative (Negative); Influenza B by IFA negative (Negative); SARS Covid-2 Antigen negative (Negative)
[2023-10-01 14:53] LABS: INR 1.02 (0.8-1.2)
[2023-10-01 15:02] LABS: Troponin(5th) Baseline 181 ng/L (0-10)
[2023-10-01 15:08] LABS: Alanine Aminotransferase 18 U/L (0-33); Albumin Level 4.4 g/dL (3.5-5.2); Alkaline Phosphatase 68 U/L (35-105); Anion Gap 21.6 (5-19); Aspartate Amino Transferase 27 U/L (0-32); Blood Urea Nitrogen 22 mg/dL (8-23); Calcium 10.2 mg/dL (8.5-10.5); Carbon Dioxide 28 mmol/L (22-29); Chloride 92 mmol/L (98-107); Glucose 425 mg/dL (65-115); Magnesium 1.7 mg/dL (1.7-2.3); NT Pro B Type Natriuretic Pept 2172 pg/mL (0-450); Osmolality Calculated 307 mOsm/kg (285-295); Potassium 3.6 mmol/L (3.5-5.1); Sodium 138 mmol/L (136-145); Total Bilirubin 0.7 mg/dL (0.15-1.2); Total Protein 7.4 g/dL (6.6-8.7)
[2023-10-01] MEDS: aspirin 81 mg Chew Tablet 324 MG PO (15:10)
[2023-10-01] MEDS: ondansetron 2 mg/ML SDV 2 mL 4 MG IVP (15:10)
[2023-10-01] MEDS: nitroglycerin 1 gm/inch oint Pkt 1 INCH TOPICAL (15:10)
[2023-10-01] MEDS: heparin 5,000 unit/mL INJ 1 mL 4000 UNIT IVP (15:30)
[2023-10-01] MEDS: heparin drip 25,000 UNIT/500 ML PREMIX 22.1 UNIT IV (15:48)
--- NOTE | 2023-10-01 16:00 | ED_ITS ---
HPI - Chest Pain 2 General: Chief Complaint: Chest Pain Stated Complaint: n/v, chest tighteness Time Seen by Provider: 10/01/23 14:14 History of Present Illness: 78-year-old female presents emergency de partment with complaints of substernal chest pain that started approximate 11 AM while she was walking through [employer] doing her normal shopping. She states she also had an episode of nausea and vomiting where she vomited on herself. She states she also became short of breath after she vomited. 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 She states that her chest pain was a 6 out of 10 and nonradiating. She is accompanied by her daughter who states that the patient has had increased intermittent chest pain worsening over the previous 1 week. She does have a history of atrial fibrillation and takes nothing for rate control or anticoagulation. Associated symptoms: Reports dyspnea, nausea and vomiting Review of Systems 2 General: Reports: 10 or more systems reviewed and unremarkable except in HPI and below Card: Reports: chest pain and irregular heart rhythm Resp: Reports: dyspnea GI: Reports: nausea and vomiting PFS ED 2 PFSH: Medical History Latent tuberculosis Completed treatment in 2020 Diabetes mellitus type 2, controlled Shingles Immunization counseling Latent tuberculosis by blood test Tenosynovitis of ankle Psoriatic arthritis High risk medication use Peroneal tendinitis of both lower legs Osteoarthritis Rotator cuff arthropathy of right shoulder Psoriasis Surgical History History of eye surgery Removal of scar tissue History of tonsillectomy History of appendectomy History of tubal ligation History of cholecystectomy H/O: hysterectomy Family History Mother Diabetes Hypertension Heart disease Brother Hypertension Sister Hypertension Grandmother Stroke Other Cancer Social History Smoking and tobacco/nicotine status: never used tobacco/nicotine Alcohol intake: never Substance/Drug Use: never Physical Exam 2 Narrative: EXAM NARRATIVE: Constitutional: the patient appears well nourished and with normal development. Vital signs reviewed as documented. HENMT: Normocephalic, atraumatic. External ears normal appearance without drainage. Nose without drainage, normal appearance. Mucus membranes moist. Neck is supple, No jugular venous distension, trachea is midline, no appreciable carotid bruits. No lymphadenopathy. No meningeal signs. Flexion, extension and lateral rotation is without pain. Eyes: Pupils are equal, round, reactive to light and accommodation. No scleral icterus. Extra-ocular movement are intact. Thorax is symmetrical and with equal rise and fall with respirations. Resp: Coarse bilaterally. Increased work of breathing requiring supplemental oxygen. Cardio: Irregularly irregular rate and rhythm-currently rate controlled. Positive S1, S2. No appreciable murmurs, rubs or gallops. GI: Abdominal exam reveals normal bowel sounds to all quadrants. No organomegaly. No obvious palpable masses noted. No hepatomegally appreciated. Soft, non-tender to palpation. Extremity: Extremities are non-edematous and both femoral and pedal pulses are 2+ and equal bilaterally. Moves all extremities well, sensation in all extremities. Neuro: Alert and oriented x4, person, place, time and situation. Cranial nerves II through XII are grossly intact, there is no focal neurological deficits that I can appreciate at present. Motor strength in the upper and lower extremities are equal and bilateral 5/5. Psych: Cooperative, calm, normal thought process, appropriate judgment. Skin: No lesions, rashes. No gross abnormalities noted. Back: Symmetrical, no obvious deformity, No CVA tenderness Course 2 Vital Signs: Vital signs: Vital Signs Temperature 98.7 F 10/02/23 16:00 Pulse Rate 93 10/02/23 16:00 Respiratory Rate 21 H 10/02/23 16:00 Blood Pressure 151/123 10/02/23 16:00 Pulse Oximetry 96 10/02/23 16:00 Oxygen Delivery Me thod Nasal Cannula 10/02/23 16:00 Oxygen Flow Rate 2 10/02/23 09:03 MDM - Chest Pain Medical Decision Making Physical exam completed and documented, I will obtain serial cardiac enzymes, serial twelve-lead EKGs, chest x-ray, CBC, CMP, urinalysis, B-type natriuretic peptide, PT/PTT/INR, and a chest x-ray. I will provide cardiac dose aspirin and nitroglycerin administration . After review of the twelve-lead EKG I will also provide loading dose of heparin and heparin drip as well as Plavix. I have reviewed any previous and pertinent medical records for assist in obtaining beneficial medical information to improved the care and treatment of the patient. I will consult the hospitalist for consultation and and at the request of the hospitalist I will obtain cardiology consultation. Lab Data I reviewed the patient's lab results. 10/02/23 03:04 10/02/23 11:55 Radiology Impressions Chest X-Ray 10/01/23 14:12 IMPRESSION: Increased interstitial lung markings most suggestive of pulmonary edema. Chest CT 10/01/23 17:17 IMPRESSION: 1. Patchy bilateral airspace infiltrates. 2. Scattered subcentimeter short axis nonspecific mediastinal lymph nodes. 3. Moderate bilateral pleural effusions. 4. Coronary artery atherosclerotic calcifications. 5. Cardiomegaly. 6. Cholecystectomy. 7. Ascending thoracic aorta dilated to 4.2 cm. Abdomen/Pelvis CT 10/02/23 08:02 IMPRESSION: No acute abdominal findings. Small bilateral pleural effusions. Laboratory Results Lactic Acid 3.9 mmol/L (0.5-2.2) H 10/01/23 14:34 Prolactin 19.79 ng/mL (4.8-23.3) 10/01/23 14:34 Influenza Type A Ag negative (Negative) 10/01/23 14:24 Influenza Type B Ag negative (Negative) 10/01/23 14:24 SARS-CoV-2 Ag (Rapid) negative (Negative) 10/01/23 14:24 All radiology interpretation(s) finalized by discharge EKG Data EKG 1: Interpretation: Twelve-lead EKG obtained at 1406 and reviewed at 1408 demonstrates atrial fibrillation ventricular rate of 98 bpm QRS duration 93, QT 360, QTc 416 there is concern for ST depression in the lead V3, V4, V5 and V6 given her controlled rate, these findings are concerning for non-ST elevated myocardial infarction EKG 2: Interpretation: Twelve-lead EKG obtained at 1601 and reviewed at 1602 demonstrates atrial fibrillation rate controlled a ventricular rate of 84 bpm, QRS duration 95 QT 367 QTc [address] depression in V5 and V6 to indicate septal non-ST elevated myocardial infarction Critical Care Time 2 Critical Care Time: Critical Care Time: Yes Total Critical Care Time: 60 Attestation: The patients was emergently evaluated as this patient's presentation and case had a high probability of a clinically significant, sudden, or life threatening deterioration of this patient's initial critical presentation or condition which required my full and direct attention, intervention and personal management. Discharge Plan Discharge Patient Disposition: Admitted As Inpatient Admit Provider: Fermin Gomez Clinical Impression: Acute non-ST elevation myocardial infarction (NSTEMI) Condition: Stable Coding Level of Care Code ED Supervisor Sleeping Bag Department for Jan Tran
--- NOTE | 2023-10-01 16:01 | ECG_ITS ---
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 Measurements Intervals [place] Rate: 84 P: 0 TX: 0 QRS: 87 QRSD: 95 T: 67 QT: 367 QTc: 434 Interpretive Statements Multifocal atrial rhythm Diffuse nonspecific T wave changes Elías SEPTAL MYOCARDIAL INFARCTION , OF INDETERMINATE AGE [40+ ms Q WAVE IN V1/V2] Compared to ECG 10/01/2023 14:06:58 Myocardial infarct finding now present ST (T wave) deviation no longer present Electronically Signed On 10-01-2023 22:01:21 AERONAUTICS TEACHER by Jade Vargas M.D. [id number]
[2023-10-01 16:21] LABS: Lactic Sepsis W/Reflex 3.9 mmol/L (0.5-2.2)
[2023-10-01 16:31] LABS: Prolactin 19.79 ng/mL (4.8-23.3)
[2023-10-01] MEDS: clopidogrel 300 mg Tablet PO (16:41)
--- NOTE | 2023-10-01 17:17 | CTR_ITS ---
PROCEDURE INFORMATION: Exam: CT Chest Without Contrast; Diagnostic Exam date and time: 10/01/2023 10:21 PM Age: 78 years old Clinical indication: Shortness of breath; Prior surgery; Surgery date: 6+ months; Surgery type: Gb; Patient HX: SOB with hypoxia. Wbc of 15k. Pulmonary edema noted on cxr. ; Additional info: Hypoxia, possible pna TECHNIQUE: Imaging protocol: Diagnostic computed tomography of the chest without contrast. Radiation optimization: All CT scans at this facility use at least one of these dose optimization techniques: automated exposure control; mA and/or kV adjustment per patient size (includes targeted exams where dose is matched to clinical indication); or iterative reconstruction. COMPARISON: CR (CHEST, ) 10/01/2023 2:52 PM RADIATION DOSE METRICS: Total DLP (mGy-cm): 568.82 FINDINGS: Lungs: Patchy bilateral airspace infiltrates. Pleural spaces: Moderate bilateral pleural effusions. Heart: Cardiomegaly. Coronary arteries: Coronary artery atherosclerotic calcifications. Lymph nodes: Scattered subcentimeter short axis nonspecific mediastinal lymph nodes. Vasculature: Ascending thoracic aorta dilated to 4.2 cm. Gallbladder and bile ducts: Cholecystectomy. Bones/joints: Unremarkable. No acute fracture. Soft tissues: Unremarkable. CT/CT chest wo con [id number] IMPRESSION: 1. Patchy bilateral airspace infiltrates. 2. Scattered subcentimeter short axis nonspecific mediastinal lymph nodes. 3. Moderate bilateral pleural effusions. 4. Coronary artery atherosclerotic calcifications. 5. Cardiomegaly. 6. Cholecystectomy. 7. Ascending thoracic aorta dilated to 4.2 cm.
--- NOTE | 2023-10-01 17:17 | USCV_ITS ---
Chela Rodriguez Age: 78 Gender: F : 1945 Exam Date: 10/01/2023 18:36 Ordering Phys: Fermin Gomez MD Technologist: Francisco Mora Exam Location: [facility] [place] Indication: n stemi BP: 150 / 92 HR: 83 Rhythm: Sinus Technical Quality: Adequate MEASUREMENTS (Male / Female) Normal Values 2D ECHO LVOT Diameter 2.0 cm LV Ejection Fraction MOD 2C 34.9 % LV Ejection Fraction 2C AL 33.9 % LA Diameter 3.8 cm LA Width 4.4 cm LA Height 5.0 cm RA Width 3.5 cm RA Height 4.1 cm Aorta at Sinotubular Diameter 2.8 cm IVC Diameter 1.8 cm M-MODE Aortic Annulus Diameter 2.5 cm LA Ao Ratio MM 1.6 MV E Point Septal Separation 1.1 cm DOPPLER AV Peak Velocity 154.0 cm/s LVOT Peak Velocity 108.0 cm/s AV Area Cont Eq vti 2.2 cm squared AV Area Cont Eq pk 2.2 cm squared MV Peak Velocity 117.0 cm/s MV Area PHT 5.0 cm squared Mitral E to A Ratio 2.2 MV E' Velocity 121.0 cm/s TR Peak Velocity 336.5 cm/s TR Peak Gradient 45.3 mmHg TR Mean Velocity 242.1 cm/s TR Mean Gradient 26.1 mmHg TR Velocity Time Integral 83.3 cm Right Atrial Pressure 8.0 mmHg Pulmonary Artery Systolic Pressu 53.3 mmHg PV Peak Velocity 100.3 cm/s RV Acceleration Time 0.1 s RV Ejection Time 0.2 s RV AcT/ET 0.4 FINDINGS Left Ventricle Severe diffuse hypokinesia involving the mid and apical septum, anteroseptum, lateral and inferior wall regions. LV ejection fraction of 34% Right Ventricle The right ventricle is normal in size and function. Right Atrium The right atrium is normal in size. Left Atrium Moderately increased left atrial size. Mitral Valve Thickened mitral valve. Moderate mitral annular calcification. Mild mitral valve regurgitation. Aortic Valve Thickened aortic valve. Tricuspid Valve [id number] tricuspid valve regurgitation. Pulmonic Valve Mild pulmonary valve regurgitation. Pericardium No pericardial effusion. Aorta Normal ascending aorta dimension. IVC The inferior vena cava appears normal. CONCLUSIONS Multiple wall motion normalities with a diminished ejection fraction of 34% Moderately increased left atrial size. Thickened mitral valve. Moderate mitral annular calcification. Mild mitral valve regurgitation. Thickened aortic valve. Mild tricuspid and pulmonic pulmonary valve regurgitation. Mild pulmonary hypertension with an estimated pulmonary artery peak systolic pressure of 53 mmHg There is no pericardial effusion. Compared to the study from 11/28/2017 the wall motion abnormalities and the drop in the LV ejection fraction are new Dr Jade Vargas MD [facility] (Electronically Signed) Final Date: 01 October 2023 20:35 S
[2023-10-01 17:22] LABS: Troponin 5 2HR 291.4 ng/L (0-10); Troponin 5 2HR Delta 110.4 ABS# (0-10)
--- NOTE | 2023-10-01 17:36 | PM.HP ---
Providers/Chief Complaint Admitting Physician: Fermin Gomez MD Primary Care Provider: Devon Walton MD Chief Complaint: n/v, chest tighteness History of Present Illness Chela Rodriguez is a 78 year old female with past medical history of CAD, post stress test done in 2019 which showed fixed apical wall perfusion defect which was considered to be attenuation defect versus prior infarct, type 2 diabetes mellitus, treated latent tuberculosis presents to the ER today after having chest pressures along with nausea and vomiting while he was walking around at [facility]. As per patient she has never had this kind of symptoms before. Chest pressures were slightly resolved after she received Nitropaste in the ER but continues to have some chest heaviness. Has not had any further episodes of nausea and vomiting with last episode of vomiting in ER. She thinks she also aspirated during her episode of vomiting at [facility]. Otherwise she denies any diarrhea, cough, headache, dysuria, runny nose. As per patient when she woke up in the morning today she had no complaints and she was at her baseline health. Review of Systems General: Reports: 10 or more systems reviewed and unremarkable except in HPI and below Const: Denies: fever(s), chills, body aches, change in appetite, change in weight, malaise, night sweats, diaphoresis, change in sleep pattern, daytime sleepiness or snoring Eyes: Denies: change in vision, blurry vision, photophobia, eye discomfort or eye discharge ENMT: Denies: throat pain, enlarged tonsils, hoarseness, mouth pain, oral sores, dry mouth, tinnitus, nasal congestion or post nasal drip Card: Denies: chest pain, palpitations, irregular heart rhythm, edema, swelling of feet/ankles, lightheadedness, syncope, pre-syncope, dyspnea on exertion, orthopnea, leg pain with exertion or acrocyanosis Resp: Denies: dyspnea, productive cough, non-productive cough, wheezing, stridor, pain on inspiration, change in phlegm color, hemoptysis or chest congestion GI: Denies: abdominal pain, nausea, vomiting, hematemesis, coffee ground emesis, dysphagia, heartburn, diarrhea, constipation, bloating, GI cramping, change in bowel habits, pain on defecation, hematochezia or melena : Denies: flank pain, dysuria, urinary frequency, urinary urgency, urinary hesitancy, nocturia or hematuria Musc: Denies: neck pain, back pain, extremity pain, joint pain, joint swelling, joint redness, joint stiffness or limited range of motion Neuro: Denies: headache(s), numbness in extremities, weakness in extremities, sensory changes, lack of coordination, difficulty walking, frequent falls, dizziness, vertigo, confusion, Slurred speech present, difficulty communicating thoughts or seizure-like activity Psych: Denies: anxiety, depression, mood swings, panic attacks, hopelessness or irritability Endo: Denies: polyuria, polydipsia, tired all the time, cold intolerance, excessive sweating, flushing or heat intolerance Fahad/Lymph: Denies: easy bruising or easy bleeding All/Imm: Denies: tongue swelling, facial swelling or acute wheezing Medications/Allergies Home Medications Medication Instructions Recorded Confirmed Last Taken Type cetirizine 10 mg tablet (Zyrtec) 5 mg PO DAILY 09/04/19 10/01/23 10/01/23 History cholecalciferol (vitamin D3) 25 1,000 unit PO BID 09/04/19 10/01/23 10/01/23 History mcg (1,000 unit) capsule hydrocodone 7.5 mg-acetaminophen 1 - 2 tab PO Q6H PRN Pain 09/04/19 10/01/23 Unknown History 325 mg tablet syringe with needle 1 mL 25 gauge #50 ea 12/29/22 10/01/23 Unknown Rx x 5/8 (Monoject TB Safety Syringe) prednisone 10 mg tablet See Rx Instructions PO .COMPLEX 08/09/23 10/01/23 Unknown Rx PRN joint pain #30 tabs furosemide 40 mg tablet 40 mg PO BID 10/01/23 10/01/23 10/01/23 History gabapentin 300 mg capsule 600 mg PO TID 10/01/23 10/01/23 10/01/23 History metformin 500 mg tablet,extended 1,000 mg PO QAM 10/01/23 10/01/23 10/01/23 History release 24 hr methocarbamol 750 mg tablet 750 mg PO TID PRN Pain 10/01/23 10/01/23 Unknown History potassium chloride 20 mEq 20 meq PO DAILY 10/01/23 10/01/23 10/01/23 History tablet,extended release(part/cryst) spironolactone 25 mg tablet 25 mg PO DAILY 10/01/23 10/01/23 10/01/23 History Allergies Allergy/AdvReac Type Severity Reaction Status Date / Time RON Inhibitors Allergy Angioedema Verified 03/30/23 14:08 Beta-Blockers Allergy irregular Verified 03/30/23 14:08 (Beta-Adrenergic Bloc heart rate diltiazem [From Cardizem] Allergy unknown Verified 03/30/23 14:08 lovastatin Allergy bone and Verified 03/30/23 14:08 muscle pain meperidine [From Demerol] Allergy itching Verified 03/30/23 14:08 methadone Allergy unknown Verified 03/30/23 14:08 pentazocine [From Talwin] Allergy nausea, Verified 03/30/23 14:08 vomiting alendronate sodium AdvReac Intermediate swelling Verified 03/30/23 14:08 [From Fosamax] codeine AdvReac Intermediate headache Verified 03/30/23 14:08 erythromycin base AdvReac Intermediate Unknown Verified 03/30/23 14:08 losartan AdvReac Intermediate dizzy Verified 03/30/23 14:08 methotrexate AdvReac Intermediate nausea/ Verified 03/30/23 14:08 diarrhea pravastatin [From Pravachol] AdvReac Intermediate cramps Verified 03/30/23 14:08 metformin AdvReac Intermediate GI Uncoded 03/30/23 14:08 PFSH Acute PFSH: Medical History (Updated 10/01/23 @ 17:41 by Fermin Gomez MD) Latent tuberculosis Completed treatment in 2020 Diabetes mellitus type 2, controlled Shingles Immunization counseling Latent tuberculosis by blood test Tenosynovitis of ankle Psoriatic arthritis High risk medication use Peroneal tendinitis of both lower legs Osteoarthritis Rotator cuff arthropathy of right shoulder Psoriasis Surgical History History of eye surgery Removal of scar tissue History of tonsillectomy History of appendectomy History of tubal ligation History of cholecystectomy H/O: hysterectomy Family History Mother Diabetes Hypertension Heart disease Brother Hypertension Sister Hypertension Grandmother Stroke Other Cancer Social History Smoking and tobacco/nicotine status: never used tobacco/nicotine Alcohol intake: never Substance/Drug Use: never Vitals/I&O/Wt Last Vital Signs Pulse 105 H 10/01/23 15:10 BP 142/87 10/01/23 15:10 Weight last 48 hrs Weight 78.925 kg Physical Exam Narrative: General: No acute distress, AO x3, on 4 L oxygen supplementation HEENT: PERRLA, pupils bilaterally equal and reactive Chest: Bronchial breath sounds all over lung cruz with occasional rhonchi and fine crackles bilateral lower zone CVS: S1-S2 regular, no murmurs, no tachycardia, no gallops, no rubs Abdomen: Soft, nontender, no organomegaly, bowel sounds present Neuro: No focal deficits, no facial deformity, AO x3, power 5/5 in all limbs Data 10/01/23 Unknown 10/01/23 Unknown A&P Assessment and plan (1) Non-ST elevation MD (NSTEMI): Cycle troponins. Currently 181 baseline. Continues to have mild chest pressure. Continue with Nitro-Bid paste twice daily. Received aspirin 325 mg, Plavix 300 mg in the ER. Heparin drip. Monitor PTT. Aspirin 81 mg daily, metoprolol 25 mg twice daily. Patient is allergic to statins. Check A1c, lipid panel, echocardiogram. ER consulted cardiology for further recommendations. Patient will most likely need cardiac angiogram given ongoing chest pressures. (2) Diabetes mellitus type 2, controlled: Check A1c. Insulin sliding scale at moderate dose protocol. Blood sugars elevated on presentation to the ER. No concerns for DKA. (3) KIMANI (acute kidney injury): Baseline creatinine normal. Currently 1.1. Could be in setting of hyperglycemia versus ACS. Monitor BMP daily. Patient has mild congestive heart failure. Will give IV Lasix 40 mg one-time. Green catheterization. Strict input output charting, daily weights. Medical reconciliation done for nephrotoxic drugs. Patient does take Lasix 40 mg twice daily and spironolactone 25 mg daily at home. (4) Hypoxia: Most likely in setting of mild congestive heart failure though cannot rule out aspiration. Oxygen supplementation keeping saturation over 92%. IV Lasix as above. (5) Leukocytosis: Unknown source for now. Infection so far less likely. Though cannot rule out aspiration pneumonitis. Could be in setting of acute reaction to ACS. Check sputum culture, blood culture, urine Legionella, bacterial antigen, procalcitonin, MRSA swab, urinalysis. Given hypoxia will also plan for CT chest without contrast. Empirically for now we will start on IV Zosyn. Will discontinue antibiotics rapidly if patient remains hemodynamically stable and afebrile. Plan CODE STATUS: Discussed in detail with the patient. Her younger daughter Ms. Yen will be the DPOA. Patient is full code. Cardiac carb consistent diet. Heparin drip will suffice for DVT prophylaxis Protonix for PUD prophylaxis. Attestations Medical Necessity Statement*: Admission for more than 2 midnights for management of non-ST elevation MD, acute kidney injury, hypoxia and leukocytosis Diagnoses Non-ST elevation MD (NSTEMI) I21.4 Diabetes mellitus type 2, controlled E11.9 KIMANI (acute kidney injury) N17.9 Hypoxia R09.02 Leukocytosis D72.829
[2023-10-01 17:48] LABS: Reflex Lactate Order REFLEX LACTIC ORDERD
[2023-10-01 18:08] LABS: Procalcitonin 0.13 ng/mL (0-0.5); Thyroid Stimulating Hormone 0.55 uIU/mL (0.27-4.20); Vitamin B12 378 pg/mL (232-1245)
--- NOTE | 2023-10-01 18:15 | PC.NURSE ---
Green catheter placed by Napoleon Weber RN
[2023-10-01 18:18] LABS: Iron 66 ug/dL (37-145); Percent Saturation 22.9 % (20-50); Total Iron Binding Capacity 287 mcg/dl; Unsaturated Iron Binding 221 ug/dL (112-347)
[2023-10-01] MEDS: FUROsemide 10 mg/mL SDV 4mL 40 MG IVP (18:28)
[2023-10-01] MEDS: cefTRIAXone 1,000 MG in sodium chloride 0.9% (plus) 50 ML 100 MG IV (18:28)
[2023-10-01] MEDS: piperacillin-tazobactam 3.375 GM in sodium chloride 0.9% (plus) 50 ML IV (18:28)
[2023-10-01] MEDS: metoprolol tartrate 25 mg Tablet PO (18:29)
[2023-10-01 18:39] LABS: Glucose Point of Care 302 mg/dL (70-110)
[2023-10-01] MEDS: insulin lispro 100 unit/1 mL SUBCUT ×2 (18:42→21:42)
[2023-10-01] MEDS: heparin drip 25,000 UNIT/500 ML PREMIX 22 UNIT IV (19:14)
[2023-10-01 19:32] LABS: Lactic Acid level (Lactate) 5.5 mmol/L (0.5-2.2)
[2023-10-01] MEDS: ipratropium 0.5 mg/2.5 mL Neb INHALATION (19:38)
[2023-10-01] MEDS: levalbuterol 0.63 mg/3 mL Neb INHALATION (19:38)
--- NOTE | 2023-10-01 19:50 | ECG_ITS ---
[facility] Test Date: 2023-10-01 Pat Name: Chela Rodriguez Department: Room: 102 Gender: Female Director Credit Risk: : 1945 Requested By: Keith Kelley Order Number: [id number] Nessa MD: Jade Vargas M.D. Measurements Intervals [place] Rate: 82 P: 88 MS: 143 QRS: 90 QRSD: 86 T: 60 QT: 382 QTc: 448 Interpretive Statements SINUS RHYTHM WITH OCCASIONAL ECTOPIC PREMATURE COMPLEXES SEPTAL MYOCARDIAL INFARCTION , OF INDETERMINATE AGE [40+ ms Q WAVE IN V1/V2] Compared to ECG 10/01/2023 16:01:08 Atrial fibrillation no longer present Myocardial infarct finding still present Electronically Signed On 10-01-2023 22:02:48 EXECUTIVE ASSISTANT by Jade Vargas M.D. [email or web address]
--- NOTE | 2023-10-01 20:47 | PM.CONSULT ---
Providers/Reason For Consult Consulting Physician/Specialty*: MARIO Vargas MD/cardiology Reason for Consult*: Patient with chest pain and elevated troponin T Requesting Physician: Dr. Child Attending Physician: Fermin Gomez MD Primary Care Provider: Devon Walton MD History of Present Illness History of Present Illness Chela Rodriguez is a 78 year old female is admitted to the hospital through the emergency room where she presented with complaints of chest pain/chest tightness/shortness of breath/nausea. She was found to have elevated troponin T. Cardiology consult is requested for further cardiac evaluation recommendations. This patient apparently has been in her baseline state of health up until around 11:00 this morning when while she was shopping at the [employer], started having nausea, chest heaviness and shortness of breath. Patient apparently was getting ready to check out after finishing her shopping. The symptoms started all of a sudden. She tried to sit down and relax for a while. Apparently that did not help. She went to the customer service and asked them to call her . Both her and daughter came and took her back home. At the house, her symptoms were waxing and waning. She started vomiting. She was finding it difficult to take a deep breath because of the chest tightness. Her pulse oximetry was in the 70s at one time. She vomited several times. She never had any real chest pain. No radiation of chest tightness. No other associated symptoms. Because of the persistence of these symptoms, she decided to come to the hospital emergency room. In the emergency room, she was placed on oxygen and topical nitrates. Her symptoms gradually subsided. At the time of my examination, patient is pain-free. She has a history of diabetes for the last many years. She also was told to have heart failure several years ago. She was diagnosed with atrial fibrillation and was evaluated by an personalized living manager. According to the patient, the personalized living manager tried to do ablation. But could not induce the arrhythmia?. So the procedure was aborted. She is not on any oral anticoagulation at this time. She has a history of extreme bradycardia with a calcium blockers and beta-blockers. She also has a history of dyslipidemia and intolerance to statins. Her latest hemoglobin A1c was around 7. She has a history of psoriasis since childhood. Also has psoriatic osteoarthritis. She is being followed with rheumatology clinic. She developed latent tuberculosis and was treated with rifampin and INH which she finished approximately 2 years ago. She has a history of recurrent shingles. She has a strong family history for premature atherosclerotic heart disease. One of her sisters had a heart attack in the 50s and one of the brothers in the 40s. Another brother had heart attack and stroke in his 60s. Mother had myocardial infarction in her 60s. High blood pressure and diabetes runs in the family. Stroke also runs in the family. Denies any smoking abuse, alcohol abuse or any other substance abuse. In the emergency room, her troponin T was 181 with a 2-hour delta of 112. The 6-hour delta was around 260. Her EKG showed multifocal atrial rhythm with diffuse nonspecific ST-T changes and poor R wave progression. No acute ST-T changes are noted. She had a Myocardial perfusion imaging in 2019 and was found to have no evidence of ischemia. she had some areas of fixed defect in the inferolateral regions. Review of Systems Narrative: CONSTITUTIONAL: No fever or chills. EYES: No blurring of vision or other visual disturbances lately. ENT: No hoarseness of voice, auditory disturbances or sore throat. CARDIOVASCULAR: As mentioned above. RESPIRATORY: No significant cough. GASTROINTESTINAL: Shortness of breath and hypoxia as mentioned above GENITOURINARY: No dysuria or hematuria. INTEGUMENTARY: No skin rashes or history of skin cancer. NEURO: No transient ischemic attacks or amaurosis. PSYCHIATRIC: No history of psychosis or major depression. HEMATOLOGIC: No bleeding disorders or significant anemia. ENDOCRINE: No history of polyuria or polydipsia. MUSCULOSKELETAL: No recent joint pain or swelling. ALLERGY/IMMUNOLOGY: As mentioned above. Medications/Allergies Home Medications Medication Instructions Recorded Confirmed Last Taken Type cetirizine 10 mg tablet (Zyrtec) 5 mg PO DAILY 09/04/19 10/01/23 10/01/23 History cholecalciferol (vitamin D3) 25 1,000 unit PO BID 09/04/19 10/01/23 10/01/23 History mcg (1,000 unit) capsule hydrocodone 7.5 mg-acetaminophen 1 - 2 tab PO Q6H PRN Pain 09/04/19 10/01/23 Unknown History 325 mg tablet syringe with needle 1 mL 25 gauge #50 ea 12/29/22 10/01/23 Unknown Rx x 5 (Monoject TB Safety Syringe) prednisone 10 mg tablet See Rx Instructions PO .COMPLEX 08/09/23 10/01/23 Unknown Rx PRN joint pain #30 tabs furosemide 40 mg tablet 40 mg PO BID 10/01/23 10/01/23 10/01/23 History gabapentin 300 mg capsule 600 mg PO TID 10/01/23 10/01/23 10/01/23 History metformin 500 mg tablet,extended 1,000 mg PO QAM 10/01/23 10/01/23 10/01/23 History release 24 hr methocarbamol 750 mg tablet 750 mg PO TID PRN Pain 10/01/23 10/01/23 Unknown History potassium chloride 20 mEq 20 meq PO DAILY 10/01/23 10/01/23 10/01/23 History tablet,extended release(part/cryst) spironolactone 25 mg tablet 25 mg PO DAILY 10/01/23 10/01/23 10/01/23 History Allergies Allergy/AdvReac Type Severity Reaction Status Date / Time RON Inhibitors Allergy Angioedema Verified 03/30/23 14:08 Beta-Blockers Allergy irregular Verified 03/30/23 14:08 (Beta-Adrenergic Bloc heart rate diltiazem [From Cardizem] Allergy unknown Verified 03/30/23 14:08 lovastatin Allergy bone and Verified 03/30/23 14:08 muscle pain meperidine [From Demerol] Allergy itching Verified 03/30/23 14:08 methadone Allergy unknown Verified 03/30/23 14:08 pentazocine [From Talwin] Allergy nausea, Verified 03/30/23 14:08 vomiting alendronate sodium AdvReac Intermediate swelling Verified 03/30/23 14:08 [From Fosamax] codeine AdvReac Intermediate headache Verified 03/30/23 14:08 erythromycin base AdvReac Intermediate Unknown Verified 03/30/23 14:08 losartan AdvReac Intermediate dizzy Verified 03/30/23 14:08 methotrexate AdvReac Intermediate nausea/ Verified 03/30/23 14:08 diarrhea pravastatin [From Pravachol] AdvReac Intermediate cramps Verified 03/30/23 14:08 metformin AdvReac Intermediate GI Uncoded 03/30/23 14:08 Current Medications Generic Name Dose Route Start Last Admin Trade Name Freq PRN Reason Stop Dose Admin Piperacillin Sod/Tazobactam 50 mls @ 12.5 mls/hr 10/01/23 18:00 10/01/23 18:28 Sod 3.375 gm/ Sodium Chloride IV 12.5 mls/hr Q8H JACOB Administration Protocol Insulin Human Lispro 0 unit 10/01/23 18:00 10/01/23 18:42 Insulin Lispro 100 Unit/1 Ml SUBCUT 12 unit WM&BEDTIME JACOB Administration Protocol Ipratropium [place] 0.5 mg 10/01/23 20:00 10/01/23 19:38 Ipratropium 0.5 Mg/2.5 Ml Neb INHALATION 0.5 mg Q6H.RESP JACOB Administration Levalbuterol HCl 0.63 mg 10/01/23 20:00 10/01/23 19:38 Levalbuterol 0.63 Mg/3 Ml Neb INHALATION 0.63 mg Q6H.RESP JACOB Administration Metoprolol Tartrate 25 mg 10/01/23 18:00 10/01/23 18:29 Metoprolol Tartrate 25 Mg Tablet PO 25 mg Q12H JACOB Administration PFSH Acute PFSH: Medical History Latent tuberculosis Completed treatment in 2020 Diabetes mellitus type 2, controlled Shingles Immunization counseling Latent tuberculosis by blood test Tenosynovitis of ankle Psoriatic arthritis High risk medication use Peroneal tendinitis of both lower legs Osteoarthritis Rotator cuff arthropathy of right shoulder Psoriasis Surgical History History of eye surgery Removal of scar tissue History of tonsillectomy History of appendectomy History of tubal ligation History of cholecystectomy H/O: hysterectomy Family History Mother Diabetes Hypertension Heart disease Brother Hypertension Sister Hypertension Grandmother Stroke Other Cancer Social History Smoking and tobacco/nicotine status: never used tobacco/nicotine Alcohol intake: never Substance/Drug Use: never Vitals/I&O/Wt Last Vital Signs Temp 98.6 F 10/01/23 19:56 Pulse 80 10/01/23 19:56 Resp 18 10/01/23 19:56 BP 132/78 10/01/23 19:56 Pulse Ox 95 10/01/23 19:56 O2 Del Method Nasal Cannula 10/01/23 19:56 O2 Flow Rate 3 10/01/23 19:55 10/01/23 10/01/23 10/01/23 06:59 14:59 22:59 Intake Total 980 / 980 Balance 980 / 980 Weight last 48 hrs Weight 186 lb 4.65 oz Weight 174 lb Physical Exam Narrative: GENERAL: The patient is alert and oriented times three. Not in any acute distress. HEENT: No significant pallor, icterus or lymphadenopathy.Oral cavity: There are no mucous membrane lesions. NECK: Trachea appears to be central. No masses noted. No JVD or thyromegaly appreciated. RESPIRATORY: Chest is symmetrical. No intercostals muscle retraction or any accessory muscle activation. There is no chest wall tenderness. Breath sounds are heard bilaterally. No rales or rhonchi heard. No evidence of any consolidation. BREASTS: Deferred. HEART: The heart sounds are normal. No S3 or S4. No significant murmurs. No pericardial rub ABDOMEN: No vessel pulsations or distention. No tenderness. No organomegaly appreciated. Bowel sounds are normally heard. : Deferred. RECTAL: Deferred. LYMPHATIC: No lymphadenopathy noted in the neck. EXTREMITIES: No edema or cyanosis. No clubbing. MUSCULOSKELETAL: No acute joint deformities or swelling SKIN: There are no significant rashes or ecchymosis NEUROPSYCHIATRIC: The patient is alert and oriented x3. Appears to be in a good mood. No tremors or rigidity noted. Urinary Catheter Management: Green: Cath Placed During This Visit: yes Reason for Continuing Indwelling Catheter: Accurate Measurement of Urinary Output in Critically Ill Patients Urinary Catheter Date of Insertion: 10/01/23 Urinary Catheter Time of Insertion: 18:15 Data 10/02/23 03:04 10/02/23 03:04 Other Labs: Laboratory Last Values WBC 15.51 10^3/uL (3.29-11.43) H 10/01/23 Unknown RBC 4.69 10^6/uL (3.85-5.65) 10/01/23 Unknown Hgb 15.10 g/dL (11.27-16.99) 10/01/23 Unknown Hct 43.4 % (36-47) 10/01/23 Unknown MCV 92.5 fl (85-98) 10/01/23 Unknown MCH 32.2 pg (27-33) 10/01/23 Unknown MCHC 34.8 g/dL (30-55) 10/01/23 Unknown RDW 13.1 % (12.1-15.1) 10/01/23 Unknown Plt Count 270 10^3/cmm (157-399) 10/01/23 Unknown MPV 10.6 fL (7.4-10.4) H 10/01/23 Unknown Neut % (Auto) 84.8 % 10/01/23 Unknown Lymph % (Auto) 8.7 % 10/01/23 Unknown [place] % (Auto) 5.4 % 10/01/23 Unknown Eos % (Auto) 0.2 % 10/01/23 Unknown Baso % (Auto) 0.4 % 10/01/23 Unknown Neut # (Auto) 13.16 10^3/uL (1.8-7.7) H 10/01/23 Unknown Lymph # (Auto) 1.4 10^3/uL (0.8-4.8) 10/01/23 Unknown [place] # (Auto) 0.8 10^3/uL (0.2-0.9) 10/01/23 Unknown Eos # (Auto) 0.0 10^3/uL (0.0-0.8) 10/01/23 Unknown Baso # (Auto) 0.1 10^3/uL (0.0-0.1) 10/01/23 Unknown Nucleated RBC % (auto) 0 % 10/01/23 Unknown Nucleated RBCs # 0.0 /100WBC 10/01/23 Unknown PT 13.70 SECONDS (12.1-14.9) 10/01/23 Unknown INR 1.02 (0.8-1.2) 10/01/23 Unknown Sodium 138 mmol/L (136-145) 10/01/23 Unknown Potassium 3.6 mmol/L (3.5-5.1) 10/01/23 Unknown Chloride 92 mmol/L (98-107) L 10/01/23 Unknown Carbon Dioxide 28 mmol/L (22-29) 10/01/23 Unknown Anion Gap 21.6 (5-19) H 10/01/23 Unknown BUN 22 mg/dL (8-23) 10/01/23 Unknown Creatinine 1.1 mg/dL (0.5-0.9) H 10/01/23 Unknown GFR Calculation Not Reportable 10/01/23 Unknown Glucose 425 mg/dL (65-115) H 10/01/23 Unknown POC Glucose 302 mg/dL (70-110) H 10/01/23 18:35 Calculated Osmolality 307 mOsm/kg (285-295) H 10/01/23 Unknown Lactic Acid 3.9 mmol/L (0.5-2.2) H 10/01/23 14:34 Lactic Acid (Sepsis) 5.5 mmol/L (0.5-2.2) H* 10/01/23 18:34 Calcium 10.2 mg/dL (8.5-10.5) 10/01/23 Unknown Magnesium 1.7 mg/dL (1.7-2.3) 10/01/23 Unknown Iron 66 ug/dL (37-145) 10/01/23 Unknown TIBC 287 mcg/dl 10/01/23 Unknown % Saturation 22.9 % (20-50) 10/01/23 Unknown Unsat Iron Binding 221 ug/dL (112-347) 10/01/23 Unknown Total Bilirubin 0.7 mg/dL (0.15-1.2) 10/01/23 Unknown AST 27 U/L (0-32) 10/01/23 Unknown ALT 18 U/L (0-33) 10/01/23 Unknown Alkaline Phosphatase 68 U/L (35-105) 10/01/23 Unknown Troponin T Baseline 181 ng/L (0-10) H* 10/01/23 Unknown Troponin T 120 Minute 291.4 ng/L (0-10) H 10/01/23 16:39 Delta Troponin T 110.4 ABS# (0-10) H* 10/01/23 16:39 NT-Pro-B Natriuret Pep 2172 pg/mL (0-450) H 10/01/23 Unknown Total Protein 7.4 g/dL (6.6-8.7) 10/01/23 Unknown Albumin 4.4 g/dL (3.5-5.2) 10/01/23 Unknown Globulin 3.0 g/dL (1.3-4.6) 10/01/23 Unknown Vitamin B12 378 pg/mL (232-1245) 10/01/23 Unknown Procalcitonin 0.13 ng/mL (0-0.5) 10/01/23 Unknown TSH 0.55 uIU/mL (0.27-4.20) 10/01/23 Unknown Prolactin 19.79 ng/mL (4.8-23.3) 10/01/23 14:34 Influenza Type A Ag negative (Negative) 10/01/23 14:24 Influenza Type B Ag negative (Negative) 10/01/23 14:24 SARS-CoV-2 Ag (Rapid) negative (Negative) 10/01/23 14:24 EKG 1: My Interpretation: Multifocal atrial rhythm with a diffuse nonspecific ST-T changes. Poor R wave progression. Other data: Chest x-ray MPRESSION: Increased interstitial lung markings most suggestive of pulmonary edema. Echocardiogram from today, 10/01/2019 Multiple wall motion normalities with a diminished ejection fraction of 34% Moderately increased left atrial size. Thickened mitral valve. Moderate mitral annular calcification. Mild mitral valve regurgitation. Thickened aortic valve. Mild tricuspid and pulmonic pulmonary valve regurgitation. Mild pulmonary hypertension with an estimated pulmonary artery peak systolic pressure of 53 mmHg There is no pericardial effusion. Compared to the study from 11/28/2017 the wall motion abnormalities and the drop in the LV ejection fraction are new Myocardial perfusion imaging in 2020 . Small in size, fixed apical wall perfusion defect. This likely represents attenuation artifact versus prior infarct. 2. Moderate in size, fixed inferolateral wall perfusion defect. This is likely secondary to attenuation artifact. 3. No ischemia is noted 3. Normal LV systolic function with EF of 69%. A&P Assessment and plan (1) Elevated troponin: Her clinical features may assist a [id number] myocardial infarction. Hemodynamically she seems to be stable. EKG changes are nonspecific. Troponin Ts trending upward. Currently she is asymptomatic. She may be treated with IV heparin, oral aspirin and Plavix. Because of the history of bradycardia, we will hold off on a beta-lopez. She also be treated with topical nitrates. Will be closely monitored on telemetry. (2) Acute pulmonary edema: Possibly from the ischemia and acute LV dysfunction. She apparently had a pulse oximetry in the 70s at home. Currently her oxygen saturation is in the mid 90s with 2 L of oxygen by nasal cannula. (3) Left ventricular systolic dysfunction (LVSD): She may be carefully monitored for the development of any heart failure. Her LV ejection fraction was normal and the previous echocardiogram. Most likely related to LV ischemia. (4) Atrial arrhythmia: She has a history of atrial fibrillation. Currently she seems to have multifocal atrial rhythm. Since the heart rate is under control, I may hold off on any medication treatment. (5) Diabetes mellitus type 2, controlled: The blood sugar is in the 400 range. Aggressive management may be appropriate. Qualifiers: Diabetes mellitus complication status: without complication Diabetes mellitus long-term insulin use: without long-term use Qualified Code(s): E11.9 - Type 2 diabetes mellitus without complications (6) Dyslipidemia: Will continue the dietary modification in view of the patient's history of intolerance to the statin. Plan The other problems are History of psoriasis and psoriatic arthritis History of latent TB status posttreatment Elevated white cell count Patient may be carefully treated with diuretics and topical nitrates. May be kept on the aspirin, Plavix and heparin. Other symptomatic measures may be continued. In view of the complicated clinical picture-possible acute ND complicated with congestive heart failure and LV dysfunction, she may benefit from an early cardiac catheterization to evaluate the coronaries and decide on further management. She will be kept n.p.o. after midnight. Reevaluate in the morning and the decision will be made afterwards. 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
[2023-10-01 20:57] LABS: Add Urine Microscopic? YES
[2023-10-01 20:58] LABS: Bacteria Urine 1+ /hpf; Bilirubin Urine Neg (Negative); Blood Urine Trace (Negative); Glucose Urine UA 4+ (Normal); Ketones Urine 1+ (Negative); Leukocyte Esterase Urine Trace (Negative); Mucus Urine 1+ /hpf; Nitrate Urine Negative (Negative); Protein Urine 1+ (Negative); Urine Appearance Hazy (CLEAR); Urine Color Colorless (Yellow); Urobilinogen Urine Norm (Negative); WBC Urine 0-4 /hpf (0-5); pH Urine 7 (5-7)
[2023-10-01 21:01] LABS: Troponin 5 6HR 464.5 ng/L (0-10); Troponin 5 6HR Delta 283.5 ng/L (0-12)
[2023-10-01 21:19] LABS: Glucose Point of Care 191 mg/dL (70-110)
[2023-10-01] MEDS: HYDROcodone-acetaminophen 7.5-325 mg Tablet 1 TAB PO (21:43)
[2023-10-01] MEDS: gabapentin 300 mg Capsule 600 MG PO (21:44)
[2023-10-01 22:30] LABS: Partial Thromboplastin Time 200.2 SECONDS (23.9-36.7)
[2023-10-02] VITALS (66 sets, daily range): BP systolic 111–170; BP diastolic 70–123; PULSE 66–117; RESP 15–32; TEMP 36.5–37.2; O2SAT 88–96; BMI 33.8
[2023-10-02] MEDS: piperacillin-tazobactam 3.375 GM in sodium chloride 0.9% (plus) 50 ML IV ×3 (01:50→17:38)
[2023-10-02] MEDS: ipratropium 0.5 mg/2.5 mL Neb INHALATION ×3 (01:57→19:43)
[2023-10-02] MEDS: levalbuterol 0.63 mg/3 mL Neb INHALATION ×3 (01:57→19:43)
[2023-10-02 03:41] LABS: Basophils # 0.1 10^3/uL (0.0-0.1); Basophils % 0.5 %; Hematocrit 37.9 % (36-47); Lymphocytes # 1.1 10^3/uL (0.8-4.8); Lymphocytes % 10.3 %; Mean Corpuscular HGB Conc 34.3 g/dL (30-55); Mean Corpuscular Hemoglobin 31.9 pg (27-33); Mean Corpuscular Volume 93.1 fl (85-98); Mean Platelet Volume 10.7 fL (7.4-10.4); Monocytes # 0.8 10^3/uL (0.2-0.9); Neutrophils % 81.5 %; Nucleated Red Blood Cells % 0 %; Platelet Count 241 10^3/cmm (157-399); Red Blood Count 4.07 10^6/uL (3.85-5.65); White Blood Count 10.67 10^3/uL (3.29-11.43)
[2023-10-02 03:53] LABS: Partial Thromboplastin Time 43.3 SECONDS (23.9-36.7)
[2023-10-02 03:56] LABS: Estmated Average Glucose 183
[2023-10-02 04:02] LABS: Cholesterol 180 mg/dL (0-200); HDL Cholesterol 40 mg/dL (60-100); LDL Cholesterol Calculated 104 mg/dL (50-129); Triglycerides 180 mg/dL (0-150)
[2023-10-02 04:04] LABS: Lactate (Lactic Acid level) 3.1 mmol/L (0.5-2.2)
[2023-10-02 04:06] LABS: Alanine Aminotransferase 17 U/L (0-33); Albumin Level 3.8 g/dL (3.5-5.2); Alkaline Phosphatase 46 U/L (35-105); Anion Gap 16.9 (5-19); Aspartate Amino Transferase 28 U/L (0-32); Blood Urea Nitrogen 23 mg/dL (8-23); Calcium 9.4 mg/dL (8.5-10.5); Carbon Dioxide 29 mmol/L (22-29); Chloride 94 mmol/L (98-107); Globulin 3.3 g/dL (1.3-4.6); Glucose 133 mg/dL (65-115); Magnesium 1.9 mg/dL (1.7-2.3); Osmolality Calculated 288 mOsm/kg (285-295); Phosphorus 4.4 mg/dL (2.5-4.5); Potassium 3.9 mmol/L (3.5-5.1); Sodium 136 mmol/L (136-145); Total Bilirubin 0.6 mg/dL (0.15-1.2); Total Protein 7.1 g/dL (6.6-8.7)
[2023-10-02 04:17] LABS: Folate Level 15.4 ng/mL (4.8-37.3)
[2023-10-02] MEDS: heparin drip 25,000 UNIT/500 ML PREMIX 22 UNIT IV (04:30)
[2023-10-02 04:59] LABS: Troponin T (5th) Once 399 ng/L (0-10)
[2023-10-02 06:27] LABS: Glucose Point of Care 152 mg/dL (70-110)
--- NOTE | 2023-10-02 08:02 | CTR_ITS ---
PROCEDURE INFORMATION: Exam: CT Abdomen And Pelvis Without Contrast Exam date and time: 10/02/2023 9:54 AM Age: 78 years old Clinical indication: Vomiting; Prior surgery; Surgery date: 6+ months; Surgery type: Gb; Additional info: Santhosh, vomiting TECHNIQUE: Imaging protocol: Computed tomography of the abdomen and pelvis without contrast. Radiation optimization: All CT scans at this facility use at least one of these dose optimization techniques: automated exposure control; mA and/or kV adjustment per patient size (includes targeted exams where dose is matched to clinical indication); or iterative reconstruction. COMPARISON: CR XR hip RT 2-3V wo/w pel* [id number] 03/25/2017 10:13 AM RADIATION DOSE METRICS: Total DLP (mGy-cm): 841.99 FINDINGS: Lungs: Bilateral small pleural effusions. Liver: No acute findings Gallbladder and bile ducts: Cholecystectomy. Pancreas: No ductal dilation. Spleen: No splenomegaly. Adrenal glands: No mass. Kidneys and ureters: No stones or hydronephrosis. Stomach and bowel: No obstruction. Appendix: No evidence of appendicitis. Intraperitoneal space: No free air. No significant fluid collection. Vasculature: No abdominal aortic aneurysm. Lymph nodes: No enlarged lymph nodes. Urinary bladder: Decompressed around a Green catheter with associated intravesicular gas. Reproductive: Hysterectomy. Bones/joints: Degenerative changes without acute findings. Soft tissues: Tiny fat containing ventral hernia with some surrounding fat stranding no loculated collection. CT/CT abdomen pelvis wo con [id number] IMPRESSION: No acute abdominal findings. Small bilateral pleural effusions.
--- NOTE | 2023-10-02 09:27 | P.PN_ITS ---
Subjective 2 Subjective: Patient is feeling okay. No chest pain or shortness of breath at this time. She still has the nausea. Because of the continued nausea and epigastric pain, she had a CT of the abdomen and pelvis. She was found to have no evidence of any acute abdomen. She also was found to elevated creatinine 1.4. The repeat creatinine around noon was 1.3. Medications: Medication Review Details: Current Medications Acetaminophen (Acetaminophen 325 Mg Tablet) 650 mg PO Q6H PRN PRN Reason: Mild/Mod Pain Or Temp >/= 101 Hydrocodone Bitart/Acetaminophen (Hydrocodone-Acetaminophen 7.5-325 Mg Tablet) 1 tab PO Q6H PRN PRN Reason: Pain Last Admin: 10/01/23 21:43 Dose: 1 tab Aspirin (Aspirin 81 Mg Ec Tablet) 81 mg PO DAILY JACOB Bisacodyl (Bisacodyl 5 Mg Tablet) 10 mg PO DAILY PRN; Protocol PRN Reason: Constipation (see protocol) Dextrose (Dextrose 50% Syringe 50 Ml) 25 ml IVP ONCE PRN; Protocol PRN Reason: hypoglycemia protocol Dextrose (Dextrose 50% Syringe 50 Ml) 50 ml IVP PRN PRN; Protocol PRN Reason: hypoglycemia protocol Furosemide (Furosemide 20 Mg Tablet) 20 mg PO DAILY@0800 [facility] Gabapentin (Gabapentin 300 Mg Capsule) 600 mg PO TID [facility] Last Admin: 10/01/23 21:44 Dose: 600 mg Heparin Sodium (Porcine) (Heparin 5,000 Unit/Ml Inj 1 Ml) 0 unit IV PRN PRN; Protocol PRN Reason: Heparin weight-base protocol Heparin Sodium/Sodium Chloride (Heparin Drip) 25,000 unit in 500 mls @ 0 mls/hr IV .Q0M [facility]; Protocol Last Admin: 10/02/23 04:30 Dose: 13.94 unit/kg/hr, 22 mls/hr Dextrose (D5w) 500 mls @ 0 mls/hr IV ONCE PRN; Protocol PRN Reason: Adult Acute Hypoglycemia Prot Piperacillin Sod/Tazobactam (Sod 3.375 gm/ Sodium Chloride) 50 mls @ 12.5 mls/hr IV Q8H [facility]; Protocol Last Titration: 10/02/23 05:50 Dose: 0 mls/hr Insulin Human Lispro (Insulin Lispro 100 Unit/1 Ml) 0 unit SUBCUT WM&BEDTIME [facility]; Protocol Last Admin: 10/02/23 07:47 Dose: Not Given Ipratropium [place] (Ipratropium 0.5 Mg/2.5 Ml Neb) 0.5 mg INHALATION Q6H.RESP [facility] Last Admin: 10/02/23 09:01 Dose: 0.5 mg Lactulose (Lactulose Oral Liq 20 Gm/30 Ml Udc) 10 gm PO DAILY PRN; Protocol PRN Reason: Constipation (see protocol) Levalbuterol HCl (Levalbuterol 0.63 Mg/3 Ml Neb) 0.63 mg INHALATION Q6H.RESP [facility] Last Admin: 10/02/23 09:01 Dose: 0.63 mg Magnesium Hydroxide (Magnesium Hydroxide 30 Ml Udc) 30 ml PO DAILY PRN; Protocol PRN Reason: Constipation (see protocol) Morphine Sulfate (Morphine 4 Mg/Ml Sdv 1 Ml) 2 mg IVP Q4H PRN PRN Reason: SEVERE PAIN Ondansetron HCl (Ondansetron 2 Mg/Ml Sdv 2 Ml) 4 mg IVP Q8H PRN PRN Reason: vomiting, or N/V if npo Pantoprazole Sodium (Pantoprazole Dr 40 Mg Tablet) 40 mg PO DAILY [facility] Potassium Chloride (Potassium Chloride Er 10 Meq Tablet) 10 meq PO DAILY [facility] Vitals/I&O/Wt Last Vital Signs Temp 98.9 F 10/02/23 07:06 Pulse 91 10/02/23 09:08 Resp 20 H 10/02/23 09:03 BP 149/73 10/02/23 07:06 Pulse Ox 93 10/02/23 09:03 O2 Del Method Nasal Cannula 10/02/23 09:03 O2 Flow Rate 2 10/02/23 09:03 10/01/23 10/02/23 10/02/23 22:59 06:59 14:59 Intake Total 1456.267 / 1456.267 50 / 1506.267 Output Total 1200 / 1200 Balance 1456.267 / 1456.267 -1150 / 306.267 Weight last 48 hrs Weight 185 lb 3.013 oz Weight 186 lb 4.65 oz Weight 174 lb Physical Exam 2 Narrative: GENERAL: The patient is alert and oriented times three. Not in any acute distress. HEENT: No significant pallor, icterus or lymphadenopathy.Oral cavity: There are no mucous membrane lesions. NECK: Trachea appears to be central. No masses noted. No JVD or thyromegaly appreciated. RESPIRATORY: Chest is symmetrical. No intercostals muscle retraction or any accessory muscle activation. There is no chest wall tenderness. Breath sounds are heard bilaterally. No rales or rhonchi heard. No evidence of any consolidation. BREASTS: Deferred. HEART: The heart sounds are normal. No S3 or S4. No significant murmurs. No pericardial rub ABDOMEN: No vessel pulsations or distention. No tenderness. No organomegaly appreciated. Bowel sounds are normally heard. : Deferred. RECTAL: Deferred. LYMPHATIC: No lymphadenopathy noted in the neck. EXTREMITIES: No edema or cyanosis. No clubbing. MUSCULOSKELETAL: No acute joint deformities or swelling SKIN: There are no significant rashes or ecchymosis NEUROPSYCHIATRIC: The patient is alert and oriented x3. Appears to be in a good mood. No tremors or rigidity noted. Urinary Catheter Management: Green: Cath Placed During This Visit: yes Reason for Continuing Indwelling Catheter: Accurate Measurement of Urinary Output in Critically Ill Patients Urinary Catheter Date of Insertion: 10/01/23 Urinary Catheter Time of Insertion: 18:15 Data 10/02/23 03:04 10/02/23 11:55 Other Labs: Laboratory Last Values WBC 10.67 10^3/uL (3.29-11.43) 10/02/23 03:04 RBC 4.07 10^6/uL (3.85-5.65) 10/02/23 03:04 Hgb 13.00 g/dL (11.27-16.99) 10/02/23 03:04 Hct 37.9 % (36-47) 10/02/23 03:04 MCV 93.1 fl (85-98) 10/02/23 03:04 MCH 31.9 pg (27-33) 10/02/23 03:04 MCHC 34.3 g/dL (30-55) 10/02/23 03:04 RDW 13.0 % (12.1-15.1) 10/02/23 03:04 Plt Count 241 10^3/cmm (157-399) 10/02/23 03:04 MPV 10.7 fL (7.4-10.4) H 10/02/23 03:04 Neut % (Auto) 81.5 % 10/02/23 03:04 Lymph % (Auto) 10.3 % 10/02/23 03:04 [place] % (Auto) 7.0 % 10/02/23 03:04 Eos % (Auto) 0.0 % 10/02/23 03:04 Baso % (Auto) 0.5 % 10/02/23 03:04 Neut # (Auto) 8.70 10^3/uL (1.8-7.7) H 10/02/23 03:04 Lymph # (Auto) 1.1 10^3/uL (0.8-4.8) 10/02/23 03:04 [place] # (Auto) 0.8 10^3/uL (0.2-0.9) 10/02/23 03:04 Eos # (Auto) 0.0 10^3/uL (0.0-0.8) 10/02/23 03:04 Baso # (Auto) 0.1 10^3/uL (0.0-0.1) 10/02/23 03:04 Nucleated RBC % (auto) 0 % 10/02/23 03:04 Nucleated RBCs # 0.0 /100WBC 10/02/23 03:04 PT 13.70 SECONDS (12.1-14.9) 10/01/23 Unknown INR 1.02 (0.8-1.2) 10/01/23 Unknown APTT 94.6 SECONDS (23.9-36.7) H D 10/02/23 08:31 Sodium 132 mmol/L (136-145) L 10/02/23 11:55 Potassium 3.7 mmol/L (3.5-5.1) 10/02/23 11:55 Chloride 92 mmol/L (98-107) L 10/02/23 11:55 Carbon Dioxide 27 mmol/L (22-29) 10/02/23 11:55 Anion Gap 16.7 (5-19) 10/02/23 11:55 BUN 24 mg/dL (8-23) H 10/02/23 11:55 Creatinine 1.3 mg/dL (0.5-0.9) H 10/02/23 11:55 GFR Calculation Not Reportable 10/02/23 11:55 Glucose 195 mg/dL (65-115) H 10/02/23 11:55 POC Glucose 210 mg/dL (70-110) H 10/02/23 11:16 Estimat Average Glucose 183 10/02/23 03:04 Hemoglobin A1c 8.0 % (4.0-6.0) H 10/02/23 03:04 Calculated Osmolality 283 mOsm/kg (285-295) L 10/02/23 11:55 Lactic Acid 3.9 mmol/L (0.5-2.2) H 10/01/23 14:34 Lactic Acid (Sepsis) 5.5 mmol/L (0.5-2.2) H* 10/01/23 18:34 Lactate 2.2 mmol/L (0.5-2.2) 10/02/23 08:31 Calcium 9.5 mg/dL (8.5-10.5) 10/02/23 11:55 Phosphorus 4.4 mg/dL (2.5-4.5) 10/02/23 03:04 Magnesium 1.9 mg/dL (1.7-2.3) 10/02/23 03:04 Iron 66 ug/dL (37-145) 10/01/23 Unknown TIBC 287 mcg/dl 10/01/23 Unknown % Saturation 22.9 % (20-50) 10/01/23 Unknown Unsat Iron Binding 221 ug/dL (112-347) 10/01/23 Unknown Total Bilirubin 0.6 mg/dL (0.15-1.2) 10/02/23 03:04 AST 28 U/L (0-32) 10/02/23 03:04 ALT 17 U/L (0-33) 10/02/23 03:04 Alkaline Phosphatase 46 U/L (35-105) 10/02/23 03:04 Troponin T 5th Gen ng/L 399 ng/L (0-10) H* 10/02/23 03:04 Troponin T Baseline 181 ng/L (0-10) H* 10/01/23 Unknown Troponin T 120 Minute 291.4 ng/L (0-10) H 10/01/23 16:39 Delta Troponin T 110.4 ABS# (0-10) H* 10/01/23 16:39 Troponin T Hi Sens 6Hr 464.5 ng/L (0-10) H 10/01/23 20:30 Troponin T Hi Sens 6Hr Delta 283.5 ng/L (0-12) H* 10/01/23 20:30 NT-Pro-B Natriuret Pep 2172 pg/mL (0-450) H 10/01/23 Unknown Total Protein 7.1 g/dL (6.6-8.7) 10/02/23 03:04 Albumin 3.8 g/dL (3.5-5.2) 10/02/23 03:04 Globulin 3.3 g/dL (1.3-4.6) 10/02/23 03:04 Triglycerides 180 mg/dL (0-150) H 10/02/23 03:04 Cholesterol 180 mg/dL (0-200) 10/02/23 03:04 LDL Cholesterol, Calc 104 mg/dL (50-129) 10/02/23 03:04 HDL Cholesterol 40 mg/dL (60-100) L 10/02/23 03:04 LDL/HDL Ratio 2.60 RATIO (0.00-3.22) 10/02/23 03:04 Cholesterol/HDL Ratio 4.50 mg/dL (0.0-4.40) H 10/02/23 03:04 Vitamin B12 378 pg/mL (232-1245) 10/01/23 Unknown Folate 15.4 ng/mL (4.8-37.3) 10/02/23 03:04 Procalcitonin 0.13 ng/mL (0-0.5) 10/01/23 Unknown TSH 0.55 uIU/mL (0.27-4.20) 10/01/23 Unknown Prolactin 19.79 ng/mL (4.8-23.3) 10/01/23 14:34 Urine Color Colorless (Yellow) 10/01/23 18:05 Urine Appearance Hazy (CLEAR) A 10/01/23 18:05 Urine pH 7 (5-7) 10/01/23 18:05 Ur Specific [place] 1.010 (1.005-1.030) 10/01/23 18:05 Urine Protein 1+ (Negative) H 10/01/23 18:05 Urine Glucose (UA) 4+ (Normal) H 10/01/23 18:05 Urine Ketones 1+ (Negative) H 10/01/23 18:05 Urine Blood Trace (Negative) H 10/01/23 18:05 Urine Nitrate Negative (Negative) 10/01/23 18:05 Urine Bilirubin Neg (Negative) 10/01/23 18:05 Urine Urobilinogen Norm mg/dL (Negative) 10/01/23 18:05 Ur Leukocyte Esterase Trace (Negative) H 10/01/23 18:05 Urine RBC 5-10 /hpf (0-2) H 10/01/23 18:05 Urine WBC 0-4 /hpf (0-5) H 10/01/23 18:05 Ur Squamous Epith Cells 5-10 /hpf (0-5) H 10/01/23 18:05 Amorphous Sediment Not Reportable 10/01/23 18:05 Urine Bacteria 1+ /hpf (NONE) H 10/01/23 18:05 Urine Mucus 1+ /hpf 10/01/23 18:05 Influenza Type A Ag negative (Negative) 10/01/23 14:24 Influenza Type B Ag negative (Negative) 10/01/23 14:24 SARS-CoV-2 Ag (Rapid) negative (Negative) 10/01/23 14:24 Micro: Microbiology 10/01/23 18:05 Legionella Urinary Antigen - Final Unknown Source 10/01/23 18:05 Bacterial Antigens - Final Urine Kidney A&P Assessment and plan (1) Elevated troponin: In view of the patient's multiple risk factors, elevated troponin T, LV systolic dysfunction and acute pulm edema, she may benefit from an early cardiac catheterization. This was discussed with the patient with the risk and benefits. The risk of bleeding, hematoma, vascular injury, myocardial infarction, myocardial perforation, malignant cardiac arrhythmias ,CVA, renal failure and other concomitant complications were explained in detail. Patient understood this well and consented to proceed. Will go ahead and schedule for the angiogram today. (2) Acute pulmonary edema: Correlates she seems to be compensated. Oxygen saturations within normal limits. (3) Left ventricular systolic dysfunction (LVSD): She may be carefully monitored for the development of any heart failure. Her LV ejection fraction was normal and the previous echocardiogram. Most likely related to LV ischemia. (4) Atrial arrhythmia: She has a history of atrial fibrillation. Currently she seems to have multifocal atrial rhythm. Since the heart rate is under control, I may hold off on any medication treatment. She has a history of bradycardia with her calcium lopez and beta-lopez (5) Diabetes mellitus type 2, controlled: The blood sugar seems to be slowly getting under control Qualifiers: Diabetes mellitus complication status: without complication Diabetes mellitus care home insulin use: without care home use Qualified Code(s): E11.9 - Type 2 diabetes mellitus without complications (6) Dyslipidemia: Will continue the dietary modification in view of the patient's history of intolerance to the statin. Plan The other problems are History of psoriasis and psoriatic arthritis History of latent TB status posttreatment Elevated white cell count Cardiac catheterization today. In view of the patient the kidney injury, she carries a high risk for contrast-induced nephropathy. This was discussed with patient detail which is understood well and consented to proceed Attestations 2 Medical Necessity Statement*: Patient requires continued hospital stay for close monitoring and further management Coding Level of Care Code 05850 Diagnoses Elevated troponin R79.89 Acute pulmonary edema J81.0 Left ventricular systolic dysfunction (LVSD) I51.9 Atrial arrhythmia I49.8 Controlled type 2 diabetes mellitus without complication, without long-term current use of insulin E11.9 Diabetes mellitus complication status: without complication Diabetes mellitus care home insulin use: without care home use Dyslipidemia E78.5
[2023-10-02 09:53] LABS: Lactate (Lactic Acid level) 2.2 mmol/L (0.5-2.2)
[2023-10-02 09:54] LABS: Partial Thromboplastin Time 94.6 SECONDS (23.9-36.7)
[2023-10-02] MEDS: aspirin 81 mg EC Tablet PO (10:27)
[2023-10-02] MEDS: gabapentin 300 mg Capsule 600 MG PO ×2 (10:27→21:09)
[2023-10-02] MEDS: pantoprazole DR 40 mg Tablet PO (10:27)
[2023-10-02] MEDS: FUROsemide 20 mg Tablet PO (10:28)
[2023-10-02] MEDS: potassium chloride ER 10 mEq Tablet PO (10:29)
[2023-10-02 11:40] LABS: Glucose Point of Care 210 mg/dL (70-110)
--- NOTE | 2023-10-02 12:09 | XACV_ITS ---
Exam Room: 2 Ht: 157 cm Wt: 84 kg BSA: 1.95 m2 Gender: Female : 1945 Any Known Allergies: Other Exam Priority: Routine Procedure(s): Procedure Description: Diagnostic procedure Procedure Description: PCI procedure Procedure Description: Left Heart Catheterization Procedure Description: Drug Eluting Coronary Stent Procedure Description: PTCA Procedure Description: Miscellaneous Procedure Description: ACT Procedure Description: Coronary Angiography Sam CALLE; Diagnostic Cath Status: Urgent Diagnostic Findings * The left main is a medium to large caliber vessel with no significant stenotic lesions. Moderate coronary calcification was noted to the proximal segments of all the three coronary arteries.. * The left anterior descending artery is a medium caliber vessel which appears to wraparound LV apex minimally. The proximal to the mid LAD was found to have 30 to 40% diffuse irregular narrowing. Around the LV apex there was a 50 to 60% segmental narrowing. The first diagonal branch was found to be a medium caliber vessel which was found diffuse irregular narrowing of 30 to 40% in the proximal to mid segment. The distal part of the mid segment, there was a 98% tight segmental lesion. No other centimeters noted lesions were noted.. * The left circumflex artery is a large caliber dominant vessel which gives off a high obtuse marginal branch patient was found to have diffuse intimal irregularities in the proximal and mid segment. No significant stenotic lesions were noted. The distal circumflex artery appears to bifurcate to give off a PDA and PLV branch. The PDA branch was found to have moderate to severe diffuse irregular narrowing in the proximal to mid segment. PLV branches found to have minimal intimal irregularities.. * The right coronary artery is a nondominant small caliber vessel which was found to have around 40 to 50% diffuse irregular narrowing in the midsegment. PCI Status: Urgent PCI LVEF Assessed: No PCI Indication: NSTE - ACS Interventional Findings * Patient has a left dominant system. There is a moderate size diagonal branch with a 99% stenosis in the midportion. A guide was placed and a wire put down the vessel. The lesion was very hard and fibrous plaque without calcium and was resistant to balloon angioplasty. I made 2 attempts at angioplasty with very little success. I stented the vessel followed by angioplasty with a noncompliant balloon. There is probably a residual 50% stenosis in the lesion. I did not make an attempt to intervene on the distal circumflex. The patient developed pressure in her chest as soon as the guide was placed. Decision for PCI with Surgical Consult: No PCI for Multi-vessel Disease: No Conclusions 1. 78-year-old white female with multiple risk factors for coronary disease, present with complaints of chest tightness, shortness of breath and nausea. She had clinical features of a non-ST elevation myocardial infarction. Echocardiac revealed diffuse hypokinesia of the mid and apical segments of the left ventricle with an ejection fraction of 34%. She had some features of acute pulmonary edema. For further evaluation of her coronary status , a cardiac catheterization was recommended. Patient underwent left heart catheterization with a left and right coronary angiogram today. The findings are as follows. 2. No significant stenosis in the left main. Mild diffuse disease irregular narrowing in the proximal to mid LAD. Moderate segmental stenosis in the distal LAD. High-grade stenosis in the mid segment of the first diagonal branch. Moderate to severe stenosis in the PDA branch of the dominant left circumflex artery. Moderate diffuse stenosis in the nondominant small right coronary artery at the mid segment. Mild diffuse disease in the other vessels. Moderate calcification involving the proximal segments of all the coronary arteries. LVEDP of 18 mmHg. 3. I reviewed and discussed the cardiac catheterization data with Dr. Russ. The patient's LV dysfunction is out of proportion to the extent of the coronary artery disease. She may have associated nonischemic cardiomyopathy. Because of the high-grade lesion in the diagonal branch of the left anterior descending artery, it was thought to be appropriate to consider PCI of this lesion. Dr. Russ took over further management this patient at this point.. Diagnostic RX Recommendation: PCI w/o planned CABG LV EDP: 18 mmHg Left Ventriculography Findings: * LV gram was not performed because of the concern about the dye overload. LVEDP was 18 mmHg. Pressures Phase:Rest AO : 117 / 87 ( 100 ) @ 2:33:00 PM 118 / 78 ( 98 ) @ 2:36:00 PM 118 / 96 ( 105 ) @ 2:45:00 PM 116 / 91 ( 103 ) @ 2:46:00 PM 158 / 95 ( 119 ) @ 3:17:00 PM 165 / 80 ( 119 ) @ 3:17:00 PM 158 / 89 ( 121 ) @ 3:23:00 PM 141 / 91 ( 115 ) @ 3:26:00 PM LV : 177 / 1 / 18 @ 3:17:00 PM 173 / 1 / 23 @ 3:17:00 PM Valves Phase:DefaultPhase AV : 11.0 @ 3:50:43 PM 11.0 @ 3:50:43 PM AV Mean Gradient: 12.0 @ 3:50:43 PM 12.0 @ 3:50:43 PM Clinical Evaluation EBL: 5mL-10mL Procedural Details Pre-Procedure Time Out. Identified patient by full name and date of as verbalized by the patient/guarantor. Does the consent match the physician's order: Yes. Accurate & Complete Informed Consent: Yes. Inpatient/Outpatient History & Physical on Chart: Yes. If H&P is completed, is and addenduem needed: No; If yes, is the addendum complete: N/A. Visualize and Verify Site with Patient/Guarantor: N/A. Relevant Radiology Images available: Yes. Pre-op teaching completed and patient verbalized understanding. The risks, benefits, and alternatives of sedation and/or procedure were discussed by physician. The patient agrees to continue. Procedure started. Physician arrived. [facility] Clinical Fraility Score: 3: Managing Well. Saw Handle Assembler Indications: ACS > 24 hours. Chest Pain Symptom Assessment: Atypical Angina. Correct patient, site and procedure confirmed by cath team. Current diagnosis: NSTEMI. PERRLA. Strong, equal hand call center recruiter bilaterally. Lungs clear x 5 lobes. IV Site on Arrival: 20 gauge in the left anticubital. IV Fluids: 0.9% NaCl at KVO. 0 mL infused prior to garden labourer. Pre Procedural Pulses: right radial was 3+. Oxygen started at 2liters/min via nasal canula. right groin was prepped with chloroprep then draped in the usual sterile fashion. right radial was prepped with chloroprep then draped in the usual sterile fashion. Baseline sample Acquired. HR: 107 BPM. Current Diagnosis : NSTEMI. Physician scrubbed in. Immediate Pre-Procedure Time Out. Correct Patient: Yes; Correct Procedure: Yes; Correct Site: Yes; Correct Patient Position: Yes; Correct Supplies: Yes; Dried Flammable Prep: Yes; Blood Products Available: N/A;. Lidocaine 1% infiltrated to the right radial. Arterial access obtained. A 5 [place] Ric catheter in over wire. ACT drawn. Results 148 seconds. Therapeutic limits - pre-heparin administration 90-150 seconds and monitoring heparin during a vascular procedure >250 seconds. Multiple views taken of left coronary artery. Catheter redirected to the RCA. Catheter removed over the exchange wire. A 5 [place] JR4 catheter in over wire. Catheter removed over the exchange wire. A 5 [place] 3DRC catheter in over wire. Multiple views taken of right coronary artery. Physician review of cine films. Catheter removed over the exchange wire. A 5 [place] Angled Pig catheter in over wire. Wire out. Wire inserted. Catheter and wire out. Physician scrubbed out. The sheath flushed periodically with heparnized saline to maintain patency. Dr. Russ scrubbed in. Patient's family updated. 6 [place] XB 3 guide catheter was inserted over the wire. EDP Sample taken: LV 177/1,18; HR: 98 BPM; SpO2: 96%. Pullback taken: LV 173/1,23; AO 158/95(119); Mean: 12mmHg, Peak to Peak: 11mmHg, SEP: 11sec/min; HR: 87 BPM; SpO2: 96%. [place] guidewire was advanced through the guide catheter to lesion in the diaganol. Inflation number : 1 A AB TREK 2.50X8 RX BALLOON was prepped and advanced across the 1st Diag , then inflated to 8 MELISSA for 0:20 seconds. Results checked. Balloon out. Inflation Number : 2 A LEA Brandon HUNTER 2.5X8 SAMEERA -Lot Number# _[id number] EXP: 04/27/2024 was prepped and advanced across the 1st Diag. The stent was deployed at 12 MELISSA for 0:31 seconds. Results checked. Stent balloon out over wire. Wire out. [place] guidewire was advanced through the guide catheter to lesion in the diaganol. Inflation number : 3 A LEA SANDERS EUPHORA RX [id number] BALLOON was prepped and advanced across the 1st Diag , then inflated to 12 MELISSA for 0:25 seconds. Results checked. Balloon and wire out. Guide catheter out. A TR Band was successful obtaining hemostatsis at the Right Radial artery insertion site. Post Procedure: Pulses reassessed and unchanged. PERRLA. Strong, equal hand call center recruiter bilaterally. No VTE prophylaxis required. Total IV fluids: 125 mL. Medication's Wasted: Lidocaine 1% = 17 mL. Medication's Wasted: Nitro = 49.6 mg. Medication's Wasted: Other = Fentanyl 50mcg Versed 1 mg. Vital chart was stopped. Complications: None. Estimated blood loss: 5mL-10mL. Responsiveness - Normal response to verbal stimuli; alert and oriented, PERRLA. Airway - Unaffected, no intervention required; spontaneous ventilation. Circulation: W/N/L, pulses unchanged. Nausea/Vomiting: No. Procedure completed. Patient transferred by bed to 1st floor. Access Site Site: Right Radial artery Sheath Size: 6 Fr Hemostasis Method: TR Band Hemostasis Success: Successful Procedure Medications Start: 2:08 PM Stop: 2:08 PM Medication: Benadryl Amount: 50 mg Route: I.V. Start: 2:11 PM Stop: 2:11 PM Medication: Versed 1 mg and Fentanyl 25 mcg Amount: 1 Route: I.V. Start: 2:29 PM Stop: 2:29 PM Medication: Nitrogylcerin Amount: 200 mcg Route: I.A. Start: 2:36 PM Stop: 2:36 PM Medication: Heparin Amount: 3000 units Route: I.V. Start: 2:43 PM Stop: 2:43 PM Medication: Nitrogylcerin Amount: 100 mcg Route: I.A. Start: 2:52 PM Stop: 2:52 PM Medication: Nitrogylcerin Amount: 100 mcg Route: I.A. Start: 2:56 PM Stop: 2:56 PM Medication: Nitrogylcerin Amount: 100 mcg Route: I.A. Start: 3:19 PM Stop: 3:19 PM Medication: Fentanyl Amount: 25 mcg Route: I.V. I, the attending physician, have reviewed and verified all procedure medications. Yes, all medications given per verbal order History/Risk Factors Hypertension: No Dyslipidemia: No Peripheral Arterial Disease (PAD): No Myocardial Infarction (DE): No Obesity: No Renal Disease: No Tobacco Use: Never Prior Interventions PCI: No CABG: No Valve Surgery: No Report Signatures Diagnostic Workflow Finalized by Dr Jade Vargas MD [facility] on 10/02/2023 07:01 PM Interventional Workflow Finalized by Dr. Taqueria Russ MD on 10/02/2023 03:57 PM
[2023-10-02] MEDS: HYDROcodone-acetaminophen 7.5-325 mg Tablet 1 TAB PO ×2 (12:22→21:08)
[2023-10-02 12:56] LABS: Blood Urea Nitrogen 24 mg/dL (8-23); Calcium 9.5 mg/dL (8.5-10.5); Carbon Dioxide 27 mmol/L (22-29); Chloride 92 mmol/L (98-107); Glucose 195 mg/dL (65-115); Osmolality Calculated 283 mOsm/kg (285-295); Sodium 132 mmol/L (136-145)
[2023-10-02 13:01] LABS: Anion Gap 16.7 (5-19); Potassium 3.7 mmol/L (3.5-5.1)
--- NOTE | 2023-10-02 13:27 | PM.PN ---
Subjective Subjective: Seen in room with multiple family members at bedside. Patient had Nitropatch which was removed earlier in the morning for headache after that she had repeat chest pain and pressure along with elevation in blood pressures. Overnight patient's heart rate remained stable after metoprolol. Patient currently denies any nausea or vomiting. Breathing is stable but getting little heavy after removing Nitropatch. She is on 2 L of nasal cannula saturating more than 92%. Currently on heparin drip. Vitals/I&O/Wt Last Vital Signs Temp 98.7 F 10/02/23 11:08 Pulse 96 10/02/23 12:20 Resp 23 H 10/02/23 12:20 BP 170/82 10/02/23 12:20 Pulse Ox 93 10/02/23 12:20 O2 Del Method Nasal Cannula 10/02/23 11:08 O2 Flow Rate 2 10/02/23 09:03 10/01/23 10/02/23 10/02/23 22:59 06:59 14:59 Intake Total 1456.267 / 1456.267 50 / 1506.267 156.417 / 156.417 Output Total 1200 / 1200 1200 / 1200 Balance 1456.267 / 1456.267 -1150 / 306.267 -1043.583 / -1043.583 Weight last 48 hrs Weight 84 kg Weight 84 kg Weight 84.5 kg Weight 78.925 kg Physical Exam Narrative: General: No acute distress, AO x3, on 2 L oxygen supplementation HEENT: PERRLA, pupils bilaterally equal and reactive Chest: Bronchial breath sounds all over lung cruz with occasional rhonchi and fine crackles bilateral lower zone CVS: S1-S2 regular, no murmurs, no tachycardia, no gallops, no rubs Abdomen: Soft, nontender, no organomegaly, bowel sounds present Neuro: No focal deficits, no facial deformity, AO x3, power 5/5 in all limbs Urinary Catheter Management: Green: Cath Placed During This Visit: yes Reason for Continuing Indwelling Catheter: Accurate Measurement of Urinary Output in Critically Ill Patients Urinary Catheter Date of Insertion: 10/01/23 Urinary Catheter Time of Insertion: 18:15 Data 10/02/23 03:04 10/02/23 11:55 Micro: Microbiology 10/01/23 18:05 Legionella Urinary Antigen - Final Unknown Source 10/01/23 18:05 Bacterial Antigens - Final Urine Kidney A&P Assessment and plan (1) Non-ST elevation HI (NSTEMI): Appreciate troponin cycle and repeat troponin in a.m. today. Continues to have mild chest pressure. Continue with Nitro-Bid paste twice daily. Heparin drip. Monitor PTT. Aspirin 81 mg daily, metoprolol 12.5 mg twice daily. Patient is allergic to statins. Patient did states he is also allergic to metoprolol. She had bradycardia when she took some kind of beta-lopez many years ago. Patient is agreeable to continue on a small dose of metoprolol for now. Appreciate A1c, lipid panel, echocardiogram. Echocardiogram shows an EF of 34%, with regional wall motion abnormality, moderately dilated LA, moderate annular mitral calcification, mild MR, mild TR and pulmonary valve regurgitation, mild pulmonary hypertension with PASP of 53 mmHg. Appreciate cardiology recommendations. If renal functions are stable plan for cardiac angiogram later in the day today. (2) Diabetes mellitus type 2, controlled: A1c 8. Insulin sliding scale at moderate dose protocol. Depending on the requirement of insulin within next 24 hours we will plan for adding Lantus. Qualifiers: Diabetes mellitus penitentiary insulin use: without penitentiary use Diabetes mellitus complication status: without complication Qualified Code(s): E11.9 - Type 2 diabetes mellitus without complications (3) KIMANI (acute kidney injury): Baseline creatinine normal. Currently 1.1. Could be in setting of hyperglycemia versus ACS leading to congestive heart failure. Repeat BMP in afternoon. Lasix 20 mg daily for now. Most likely patient will need higher dose of diuresis. Green catheterization. Strict input output charting, daily weights. Medical reconciliation done for nephrotoxic drugs. Patient does take Lasix 40 mg twice daily and spironolactone 25 mg daily at home. Holding off on spironolactone for now as patient will be needing cardiac catheterization and has mild KIMANI. (4) Hypoxia: Most likely in setting of mild congestive heart failure though cannot rule out aspiration. Oxygen supplementation keeping saturation over 92%. Oral Lasix 40 mg daily. Strict improper charting, daily weights. Green catheterization. Fluid restriction up to 1500 cc. (5) Leukocytosis: Resolved. Unknown source for now. Infection so far less likely. Though cannot rule out aspiration pneumonitis. Could be in setting of acute reaction to ACS. UA negative for UTI, blood culture pending, urine Legionella, bacterial antigen negative. MRSA swab pending. Appreciate CT chest without contrast. Patient does have mild pneumonitis most likely aspiration but pneumonia less likely. Empirically for now we will continue with IV Zosyn. Will discontinue antibiotics rapidly if patient remains hemodynamically stable and afebrile. (6) Left ventricular systolic dysfunction (LVSD): (7) Congestive heart failure: Plan CODE STATUS: Discussed in detail with the patient. Her younger daughter Ms. Yen will be the DPOA. Patient is full code. Cardiac carb consistent diet. Heparin drip will suffice for DVT prophylaxis Protonix for PUD prophylaxis. Attestations Medical Necessity Statement*: Requires further hospitalization for management of non-ST elevation HI in the congestive heart failure with acute kidney injury Diagnoses Non-ST elevation HI (NSTEMI) I21.4 Controlled type 2 diabetes mellitus without complication, without long-term current use of insulin E11.9 Diabetes mellitus penitentiary insulin use: without technician terminal and repeater use Diabetes mellitus complication status: without complication KIMANI (acute kidney injury) N17.9 Hypoxia R09.02 Leukocytosis D72.829 Left ventricular systolic dysfunction (LVSD) I51.9 Congestive heart failure I50.9
[2023-10-02] MEDS: nitroglycerin 1 gm/inch oint Pkt 0.5 INCH TOPICAL (13:46)
[2023-10-02] MEDS: metoprolol tartrate 25 mg Tablet 12.5 MG PO ×2 (13:48→21:08)
--- NOTE | 2023-10-02 13:49 | W.PM.OPSUD ---
Surgery/Procedure H&P Update DATE OF PROCEDURE: October 02, 2023 DATE H&P PERFORMED: 10/01/23 H&P UPDATE INFORMATION: I have reviewed H&P completed within last 30 days, I have examined patient prior to procedure and No changes to prior documentation PREOP DIAGNOSIS: Atherosclerotic heart disease PRIMARY INDICATION FOR PROCEDURE: Acute AK, pulmonary edema, LV systolic dysfunction PLANNED PROCEDURE: Left heart catheterization with left and right coronary angiogram and possible PCI PATIENT REASSESSED PRIOR TO SEDATION, WITH NO CHANGE NOTED: Yes PHYSICAL EXAM: alert, oriented x 3, clear to auscultation bilaterally and regular rate & rhythm (Frequent irregular heartbeat) AIRWAY EVAL/ANESTHESIA PLAN: normal airway, see other exam findings, ASA IV, Monitored Anesthesia, Local Anesthesia, Risks, benefits & alternatives of sedation and/or procedure discussed and Patient agrees to continue as planned
[2023-10-02 16:59] LABS: Glucose Point of Care 262 mg/dL (70-110)
[2023-10-02] MEDS: isosorbide mononitrate ER 30 mg Tablet PO (17:37)
[2023-10-02] MEDS: insulin lispro 100 unit/1 mL SUBCUT ×2 (17:38→21:07)
[2023-10-02] MEDS: amlodipine 10 mg Tablet PO (17:38)
[2023-10-02] MEDS: sodium chloride 0.9% 1,000 ML 50 ML IV (17:41)
[2023-10-02 20:28] LABS: Glucose Point of Care 236 mg/dL (70-110)
[2023-10-03] VITALS (14 sets, daily range): BP systolic 92–127; BP diastolic 62–98; PULSE 85–155; RESP 16–31; TEMP 36.5–36.9; O2SAT 93–96
[2023-10-03] MEDS: piperacillin-tazobactam 3.375 GM in sodium chloride 0.9% (plus) 50 ML IV ×3 (02:23→17:48)
[2023-10-03 04:22] LABS: Basophils % 0.3 %; Eosinophils % 0.4 %; Hematocrit 37.5 % (36-47); Lymphocytes # 1.2 10^3/uL (0.8-4.8); Lymphocytes % 10.9 %; Mean Corpuscular HGB Conc 34.7 g/dL (30-55); Mean Corpuscular Hemoglobin 32.2 pg (27-33); Mean Corpuscular Volume 92.8 fl (85-98); Mean Platelet Volume 10.9 fL (7.4-10.4); Monocytes # 1.1 10^3/uL (0.2-0.9); Monocytes % 9.7 %; Neutrophils # 8.57 10^3/uL (1.8-7.7); Neutrophils % 78.1 %; Nucleated Red Blood Cells % 0 %; Platelet Count 194 10^3/cmm (157-399); Red Blood Count 4.04 10^6/uL (3.85-5.65); Red Cell Distribution Width 13.2 % (12.1-15.1); White Blood Count 10.96 10^3/uL (3.29-11.43)
[2023-10-03 04:47] LABS: Alanine Aminotransferase 17 U/L (0-33); Albumin Level 3.8 g/dL (3.5-5.2); Alkaline Phosphatase 44 U/L (35-105); Anion Gap 14.5 (5-19); Aspartate Amino Transferase 27 U/L (0-32); Blood Urea Nitrogen 23 mg/dL (8-23); Calcium 9.2 mg/dL (8.5-10.5); Carbon Dioxide 31 mmol/L (22-29); Chloride 95 mmol/L (98-107); Globulin 3.3 g/dL (1.3-4.6); Glucose 171 mg/dL (65-115); Osmolality Calculated 292 mOsm/kg (285-295); Potassium 3.5 mmol/L (3.5-5.1); Sodium 137 mmol/L (136-145); Total Protein 7.1 g/dL (6.6-8.7)
[2023-10-03] MEDS: HYDROcodone-acetaminophen 7.5-325 mg Tablet 1 TAB PO (05:50)
[2023-10-03 06:04] LABS: Glucose Point of Care 228 mg/dL (70-110)
[2023-10-03] MEDS: levalbuterol 0.63 mg/3 mL Neb INHALATION ×2 (07:53→15:45)
[2023-10-03] MEDS: ipratropium 0.5 mg/2.5 mL Neb INHALATION (07:53)
[2023-10-03] MEDS: amlodipine 10 mg Tablet PO (08:43)
[2023-10-03] MEDS: isosorbide mononitrate ER 30 mg Tablet PO ×2 (08:43→17:47)
[2023-10-03] MEDS: aspirin 81 mg EC Tablet PO (08:43)
[2023-10-03] MEDS: gabapentin 300 mg Capsule 600 MG PO ×3 (08:43→20:43)
[2023-10-03] MEDS: pantoprazole DR 40 mg Tablet PO (08:43)
[2023-10-03] MEDS: FUROsemide 40 mg Tablet PO (08:44)
[2023-10-03] MEDS: metoprolol tartrate 25 mg Tablet 12.5 MG PO (08:44)
[2023-10-03] MEDS: insulin lispro 100 unit/1 mL SUBCUT ×4 (08:44→22:15)
[2023-10-03] MEDS: potassium chloride ER 10 mEq Tablet PO (08:44)
[2023-10-03] MEDS: clopidogrel 75 mg Tablet PO (08:44)
--- NOTE | 2023-10-03 09:17 | PC.NURSE ---
Patients right radial TR-Band is removed. There was no air in it, the night nurse, told day shift that she had not removed it since the patient was sleeping. Dressing is applied.
--- NOTE | 2023-10-03 09:43 | PM.PN ---
Subjective Subjective: Patient has been having episodes of atrial fibrillation with rapid ventricular rate on the monitor. Seems to be responding to metoprolol. Had a cardiac catheterization yesterday. He was found to have a high-grade lesion in the diagonal branch. PCI was difficult. The result was suboptimal. Medications: Medication Review Details: Current Medications Acetaminophen (Acetaminophen 325 Mg Tablet) 650 mg PO Q6H PRN PRN Reason: Mild/Mod Pain Or Temp >/= 101 Hydrocodone Bitart/Acetaminophen (Hydrocodone-Acetaminophen 7.5-325 Mg Tablet) 1 tab PO Q6H PRN PRN Reason: Pain Last Admin: 10/03/23 05:50 Dose: 1 tab Amlodipine Besylate (Amlodipine 10 Mg Tablet) 10 mg PO DAILY [facility] Last Admin: 10/03/23 08:43 Dose: 10 mg Aspirin (Aspirin 81 Mg Ec Tablet) 81 mg PO DAILY [facility] Last Admin: 10/03/23 08:43 Dose: 81 mg Bisacodyl (Bisacodyl 5 Mg Tablet) 10 mg PO DAILY PRN; Protocol PRN Reason: Constipation (see protocol) Clopidogrel Bisulfate (Clopidogrel 75 Mg Tablet) 75 mg PO DAILY [facility] Last Admin: 10/03/23 08:44 Dose: 75 mg Dextrose (Dextrose 50% Syringe 50 Ml) 25 ml IVP ONCE PRN; Protocol PRN Reason: hypoglycemia protocol Dextrose (Dextrose 50% Syringe 50 Ml) 50 ml IVP PRN PRN; Protocol PRN Reason: hypoglycemia protocol Furosemide (Furosemide 40 Mg Tablet) 40 mg PO DAILY@0800 [facility] Last Admin: 10/03/23 08:44 Dose: 40 mg Gabapentin (Gabapentin 300 Mg Capsule) 600 mg PO TID [facility] Last Admin: 10/03/23 08:43 Dose: 600 mg Dextrose (D5w) 500 mls @ 0 mls/hr IV ONCE PRN; Protocol PRN Reason: Adult Acute Hypoglycemia Prot Piperacillin Sod/Tazobactam (Sod 3.375 gm/ Sodium Chloride) 50 mls @ 12.5 mls/hr IV Q8H [facility]; Protocol Last Infusion: 10/03/23 06:34 Dose: Infused Insulin Human Lispro (Insulin Lispro 100 Unit/1 Ml) 0 unit SUBCUT WM&BEDTIME [facility]; Protocol Last Admin: 10/03/23 08:44 Dose: 8 unit Ipratropium [place] (Ipratropium 0.5 Mg/2.5 Ml Neb) 0.5 mg INHALATION Q6H.RESP [facility] Last Admin: 10/03/23 07:53 Dose: 0.5 mg Isosorbide Mononitrate (Isosorbide Mononitrate Er 30 Mg Tablet) 30 mg PO BID [facility] Last Admin: 10/03/23 08:43 Dose: 30 mg Lactulose (Lactulose Oral Liq 20 Gm/30 Ml Udc) 10 gm PO DAILY PRN; Protocol PRN Reason: Constipation (see protocol) Levalbuterol HCl (Levalbuterol 0.63 Mg/3 Ml Neb) 0.63 mg INHALATION Q6H.RESP [facility] Last Admin: 10/03/23 07:53 Dose: 0.63 mg Magnesium Hydroxide (Magnesium Hydroxide 30 Ml Udc) 30 ml PO DAILY PRN; Protocol PRN Reason: Constipation (see protocol) Metoprolol Tartrate (Metoprolol Tartrate 25 Mg Tablet) 12.5 mg PO BID@0900,2100 [facility] Last Admin: 10/03/23 08:44 Dose: 12.5 mg Morphine Sulfate (Morphine 4 Mg/Ml Sdv 1 Ml) 2 mg IVP Q4H PRN PRN Reason: SEVERE PAIN Nitroglycerin (Nitroglycerin 0.4 Mg Sublingual Tablet) 0.4 mg SUBLINGUAL Q5M PRN PRN Reason: CHEST PAIN Ondansetron HCl (Ondansetron 2 Mg/Ml Sdv 2 Ml) 4 mg IVP Q8H PRN PRN Reason: vomiting, or N/V if npo Pantoprazole Sodium (Pantoprazole Dr 40 Mg Tablet) 40 mg PO DAILY [facility] Last Admin: 10/03/23 08:43 Dose: 40 mg Potassium Chloride (Potassium Chloride Er 10 Meq Tablet) 10 meq PO DAILY [facility] Last Admin: 10/03/23 08:44 Dose: 10 meq Vitals/I&O/Wt Last Vital Signs Temp 97.7 F 10/03/23 08:38 Pulse 115 H 10/03/23 08:38 Resp 28 H 10/03/23 08:38 BP 110/93 10/03/23 08:38 Pulse Ox 95 10/03/23 08:38 O2 Del Method Nasal Cannula 10/03/23 08:38 O2 Flow Rate 1.5 10/03/23 08:38 10/02/23 10/03/23 10/03/23 22:59 06:59 14:59 Intake Total 50 / 256.417 410 / 666.417 Output Total 2250 / 3450 450 / 3900 Balance -2200 / -3193.583 -40 / -3233.583 Weight last 48 hrs Weight 178 lb 9.191 oz Weight 185 lb 3.013 oz Weight 185 lb 3.013 oz Weight 186 lb 4.65 oz Weight 174 lb Physical Exam Narrative: GENERAL: The patient is alert and oriented times three. Not in any acute distress. HEENT: No significant pallor, icterus or lymphadenopathy.Oral cavity: There are no mucous membrane lesions. NECK: Trachea appears to be central. No masses noted. No JVD or thyromegaly appreciated. RESPIRATORY: Chest is symmetrical. No intercostals muscle retraction or any accessory muscle activation. There is no chest wall tenderness. Breath sounds are heard bilaterally. No rales or rhonchi heard. No evidence of any consolidation. Occasional fine Rales in the bases BREASTS: Deferred. HEART: The heart sounds are normal. No S3 or S4. No significant murmurs. No pericardial rub ABDOMEN: No vessel pulsations or distention. No tenderness. No organomegaly appreciated. Bowel sounds are normally heard. : Deferred. RECTAL: Deferred. LYMPHATIC: No lymphadenopathy noted in the neck. EXTREMITIES: No edema or cyanosis. No clubbing. MUSCULOSKELETAL: No acute joint deformities or swelling SKIN: There are no significant rashes or ecchymosis NEUROPSYCHIATRIC: The patient is alert and oriented x3. Appears to be in a good mood. No tremors or rigidity noted. Urinary Catheter Management: Green: Cath Placed During This Visit: yes Reason for Continuing Indwelling Catheter: Accurate Measurement of Urinary Output in Critically Ill Patients Urinary Catheter Date of Insertion: 10/01/23 Urinary Catheter Time of Insertion: 18:15 Data 10/03/23 04:00 10/03/23 04:00 Other Labs: Laboratory Last Values WBC 10.96 10^3/uL (3.29-11.43) 10/03/23 04:00 RBC 4.04 10^6/uL (3.85-5.65) 10/03/23 04:00 Hgb 13.00 g/dL (11.27-16.99) 10/03/23 04:00 Hct 37.5 % (36-47) 10/03/23 04:00 MCV 92.8 fl (85-98) 10/03/23 04:00 MCH 32.2 pg (27-33) 10/03/23 04:00 MCHC 34.7 g/dL (30-55) 10/03/23 04:00 RDW 13.2 % (12.1-15.1) 10/03/23 04:00 Plt Count 194 10^3/cmm (157-399) 10/03/23 04:00 MPV 10.9 fL (7.4-10.4) H 10/03/23 04:00 Neut % (Auto) 78.1 % 10/03/23 04:00 Lymph % (Auto) 10.9 % 10/03/23 04:00 [place] % (Auto) 9.7 % 10/03/23 04:00 Eos % (Auto) 0.4 % 10/03/23 04:00 Baso % (Auto) 0.3 % 10/03/23 04:00 Neut # (Auto) 8.57 10^3/uL (1.8-7.7) H 10/03/23 04:00 Lymph # (Auto) 1.2 10^3/uL (0.8-4.8) 10/03/23 04:00 [place] # (Auto) 1.1 10^3/uL (0.2-0.9) H 10/03/23 04:00 Eos # (Auto) 0.0 10^3/uL (0.0-0.8) 10/03/23 04:00 Baso # (Auto) 0.0 10^3/uL (0.0-0.1) 10/03/23 04:00 Nucleated RBC % (auto) 0 % 10/03/23 04:00 Nucleated RBCs # 0.0 /100WBC 10/03/23 04:00 PT 13.70 SECONDS (12.1-14.9) 10/01/23 Unknown INR 1.02 (0.8-1.2) 10/01/23 Unknown APTT 94.6 SECONDS (23.9-36.7) H D 10/02/23 08:31 Sodium 137 mmol/L (136-145) 10/03/23 04:00 Potassium 3.5 mmol/L (3.5-5.1) 10/03/23 04:00 Chloride 95 mmol/L (98-107) L 10/03/23 04:00 Carbon Dioxide 31 mmol/L (22-29) H 10/03/23 04:00 Anion Gap 14.5 (5-19) 10/03/23 04:00 BUN 23 mg/dL (8-23) 10/03/23 04:00 Creatinine 1.4 mg/dL (0.5-0.9) H 10/03/23 04:00 GFR Calculation Not Reportable 10/03/23 04:00 Glucose 171 mg/dL (65-115) H 10/03/23 04:00 POC Glucose 228 mg/dL (70-110) H 10/03/23 05:53 Estimat Average Glucose 183 10/02/23 03:04 Hemoglobin A1c 8.0 % (4.0-6.0) H 10/02/23 03:04 Calculated Osmolality 292 mOsm/kg (285-295) 10/03/23 04:00 Lactic Acid 3.9 mmol/L (0.5-2.2) H 10/01/23 14:34 Lactic Acid (Sepsis) 5.5 mmol/L (0.5-2.2) H* 10/01/23 18:34 Lactate 2.2 mmol/L (0.5-2.2) 10/02/23 08:31 Calcium 9.2 mg/dL (8.5-10.5) 10/03/23 04:00 Phosphorus 4.4 mg/dL (2.5-4.5) 10/02/23 03:04 Magnesium 1.9 mg/dL (1.7-2.3) 10/02/23 03:04 Iron 66 ug/dL (37-145) 10/01/23 Unknown TIBC 287 mcg/dl 10/01/23 Unknown % Saturation 22.9 % (20-50) 10/01/23 Unknown Unsat Iron Binding 221 ug/dL (112-347) 10/01/23 Unknown Total Bilirubin 1.0 mg/dL (0.15-1.2) 10/03/23 04:00 AST 27 U/L (0-32) 10/03/23 04:00 ALT 17 U/L (0-33) 10/03/23 04:00 Alkaline Phosphatase 44 U/L (35-105) 10/03/23 04:00 Troponin T 5th Gen ng/L 399 ng/L (0-10) H* 10/02/23 03:04 Troponin T Baseline 181 ng/L (0-10) H* 10/01/23 Unknown Troponin T 120 Minute 291.4 ng/L (0-10) H 10/01/23 16:39 Delta Troponin T 110.4 ABS# (0-10) H* 10/01/23 16:39 Troponin T Hi Sens 6Hr 464.5 ng/L (0-10) H 10/01/23 20:30 Troponin T Hi Sens 6Hr Delta 283.5 ng/L (0-12) H* 10/01/23 20:30 NT-Pro-B Natriuret Pep 2172 pg/mL (0-450) H 10/01/23 Unknown Total Protein 7.1 g/dL (6.6-8.7) 10/03/23 04:00 Albumin 3.8 g/dL (3.5-5.2) 10/03/23 04:00 Globulin 3.3 g/dL (1.3-4.6) 10/03/23 04:00 Triglycerides 180 mg/dL (0-150) H 10/02/23 03:04 Cholesterol 180 mg/dL (0-200) 10/02/23 03:04 LDL Cholesterol, Calc 104 mg/dL (50-129) 10/02/23 03:04 HDL Cholesterol 40 mg/dL (60-100) L 10/02/23 03:04 LDL/HDL Ratio 2.60 RATIO (0.00-3.22) 10/02/23 03:04 Cholesterol/HDL Ratio 4.50 mg/dL (0.0-4.40) H 10/02/23 03:04 Vitamin B12 378 pg/mL (232-1245) 10/01/23 Unknown Folate 15.4 ng/mL (4.8-37.3) 10/02/23 03:04 Procalcitonin 0.13 ng/mL (0-0.5) 10/01/23 Unknown TSH 0.55 uIU/mL (0.27-4.20) 10/01/23 Unknown Prolactin 19.79 ng/mL (4.8-23.3) 10/01/23 14:34 Urine Color Colorless (Yellow) 10/01/23 18:05 Urine Appearance Hazy (CLEAR) A 10/01/23 18:05 Urine pH 7 (5-7) 10/01/23 18:05 Ur Specific [place] 1.010 (1.005-1.030) 10/01/23 18:05 Urine Protein 1+ (Negative) H 10/01/23 18:05 Urine Glucose (UA) 4+ (Normal) H 10/01/23 18:05 Urine Ketones 1+ (Negative) H 10/01/23 18:05 Urine Blood Trace (Negative) H 10/01/23 18:05 Urine Nitrate Negative (Negative) 10/01/23 18:05 Urine Bilirubin Neg (Negative) 10/01/23 18:05 Urine Urobilinogen Norm mg/dL (Negative) 10/01/23 18:05 Ur Leukocyte Esterase Trace (Negative) H 10/01/23 18:05 Urine RBC 5-10 /hpf (0-2) H 10/01/23 18:05 Urine WBC 0-4 /hpf (0-5) H 10/01/23 18:05 Ur Squamous Epith Cells 5-10 /hpf (0-5) H 10/01/23 18:05 Amorphous Sediment Not Reportable 10/01/23 18:05 Urine Bacteria 1+ /hpf (NONE) H 10/01/23 18:05 Urine Mucus 1+ /hpf 10/01/23 18:05 Influenza Type A Ag negative (Negative) 10/01/23 14:24 Influenza Type B Ag negative (Negative) 10/01/23 14:24 SARS-CoV-2 Ag (Rapid) negative (Negative) 10/01/23 14:24 A&P Assessment and plan (1) Elevated troponin: Patient has features of nonischemic cardiomyopathy with atherosclerotic heart disease. PCI was attempted to the diagonal lesion. Because of technical difficulty, the residual stenosis was 50%. Will continue on the Plavix and aspirin. (2) Acute pulmonary edema: Correlates she seems to be compensated. Oxygen saturations within normal limits. Try to optimize her medications. Because of her intolerance to RON inhibitor, ARB and the blockers, we may start her on a low-dose of hydralazine, if the blood pressure tolerates. (3) Left ventricular systolic dysfunction (LVSD): Most likely from nonischemic cardiomyopathy/Takotsubo (4) Atrial arrhythmia: Patient seems to be going into atrial fibrillation intermittently. She may benefit from oral anticoagulation. Will go ahead and do an EKG to evaluate the arrhythmia (5) Diabetes mellitus type 2, controlled: The blood sugar seems to be slowly getting under control Qualifiers: Diabetes mellitus meter shop supervisor insulin use: without alf use Diabetes mellitus complication status: without complication Qualified Code(s): E11.9 - Type 2 diabetes mellitus without complications (6) Dyslipidemia: Will continue the dietary modification in view of the patient's history of intolerance to the statin. Plan The other problems are History of psoriasis and psoriatic arthritis History of latent TB status posttreatment Elevated white cell count Acute kidney injury, creatinine stable Judicious use of the beta-lopez for rate control may be appropriate. She may need to be closely monitored on telemetry. She apparently had bradycardia with beta-lopez in the past. Also may be started on Eliquis Careful use of the Lasix for CHF. Based on the clinical progress, further management decisions will be made. Dr. Chan will be covering for me in my absence Attestations Medical Necessity Statement*: Patient requires continued hospital stay for close monitoring and further management Coding Level of Care Code 10013 Diagnoses Elevated troponin R79.89 Acute pulmonary edema J81.0 Left ventricular systolic dysfunction (LVSD) I51.9 Atrial arrhythmia I49.8 Controlled type 2 diabetes mellitus without complication, without long-term current use of insulin E11.9 Diabetes mellitus meter shop supervisor insulin use: without alf use Diabetes mellitus complication status: without complication Dyslipidemia E78.5
--- NOTE | 2023-10-03 10:52 | PC.SOCIAL ---
IMM Update pg 2 of IMM updated and reviewed w/ patient. Copy provided and copy dated, initialed and placed in chart.
[2023-10-03 12:07] LABS: Glucose Point of Care 205 mg/dL (70-110)
[2023-10-03] MEDS: HYDROcodone-acetaminophen 7.5-325 mg Tablet 2 TAB PO (12:34)
--- NOTE | 2023-10-03 13:00 | PC.NURSE ---
NOTIFIED RETARDER OPERATOR ON TACHYCARDIA HR-130s TO 140S. Notified doctor that Pt stated she is short of breath, spo2-94%, HR-140s. BP-125/86. Received telephone orders from Dr Vargas to gove PO Metoprolol 25 mg now and start 25 mg dose this chema then BID. [address] up to Dr Vargas that pt HR is still between 120s to 130s post metoprolol. He said to give it some time.
[2023-10-03] MEDS: metoprolol tartrate 25 mg Tablet PO ×2 (13:08→20:43)
[2023-10-03 15:16] LABS: Methicillin-Resist S.aureu PCR NOT DETECTED (NOT DETECTED)
[2023-10-03 17:01] LABS: Glucose Point of Care 235 mg/dL (70-110)
--- NOTE | 2023-10-03 17:32 | PC.NURSE ---
Dr Vargas called for an update on patient. He ordered a stat EKG.
--- NOTE | 2023-10-03 17:34 | ECG_ITS ---
[facility] Test Date: 2023-10-03 Pat Name: Chela Rodriguez Department: Room: 102 Gender: Female Demand Manager: : 1945 Requested By: Jade Vargas Order Number: [id number] Nessa MD: Jade Vargas M.D. Measurements Intervals [place] Rate: 137 P: 0 KS: 0 QRS: 68 QRSD: 97 T: 248 QT: 338 QTc: 512 Interpretive Statements ATRIAL FIBRILLATION WITH RAPID VENTRICULAR RESPONSE SEPTAL MYOCARDIAL INFARCTION , PROBABLY RECENT [40+ ms Q WAVE IN V1/V2] ACUTE MT Compared to ECG 10/01/2023 19:50:21 Sinus rhythm no longer present Myocardial infarct finding still present Electronically Signed On 10-03-2023 19:30:07 LIBRARY MANAGER by Jade Vargas M.D. [id number]
--- NOTE | 2023-10-03 18:58 | PC.NURSE ---
Provider notified after EKG was done. No new orders given.
[2023-10-03] MEDS: ondansetron 2 mg/ML SDV 2 mL 4 MG IVP (20:51)
--- NOTE | 2023-10-03 21:16 | P.PN_ITS ---
Subjective 2 Subjective: Not feeling the best today. She normally takes 2 tablets every 6 hours of 7.5 mg hydrocodone as well as 600 mg 3 times daily gabapentin. Is wondering if she may be starting to withdraw from hydrocodone. No chest pain or pressure. No issues with access in the right wrist. Vitals/I&O/Wt Last Vital Signs Temp 97.8 F 10/03/23 20:00 Pulse 155 H 10/03/23 20:57 Resp 31 H 10/03/23 20:57 BP 127/98 10/03/23 20:57 Pulse Ox 93 10/03/23 20:57 O2 Del Method Nasal Cannula 10/03/23 20:57 O2 Flow Rate 2 10/03/23 19:39 10/03/23 10/03/23 10/03/23 06:59 14:59 22:59 Intake Total 410 / 649.030 2033 / 1180 410 / 1590 Output Total 450 / 3900 900 / 900 Balance -40 / -3233.583 280 / 280 410 / 690 Weight last 48 hrs Weight 84.368 kg Weight 81 kg Weight 84 kg Weight 84 kg Physical Exam 2 Narrative: Visited by family. Family express that she is likely withdrawing from hydrocodone. She is sitting up in bed. Awake and alert. Const: COMMON NORMALS: patient oriented x3 and alert GENERAL APPEARANCE: c ooperative ORIENTATION/CONSCIOUSNESS: Yes awake HENMT: COMMON NORMALS: oropharynx normal Neck/C-Spine: COMMON NORMALS: no JVD Resp: COMMON NORMALS: normal respiratory effort and clear to auscultation bilaterally AUSCULTATION: clear to auscultation bilaterally Cardio: COMMON NORMALS: no JVD, regular rhythm, S1 normal heart sound present, S2 normal heart sound present and No murmurs present (Cardio) RHYTHM: regular rhythm HEART SOUNDS: S1 normal heart sound present and S2 normal heart sound present GI: COMMON NORMALS: Normal to inspection, nondistended, normoactive bowel sounds present, Soft to palpation and non-tender PALPATION: Yes Soft to palpation Extremity: COMMON NORMALS: no joint enlargement and no pedal edema N ARRATIVE EXTREMITY EXAM: Right hand perfused, no swelling or bleeding at the right wrist access site. Neuro: COMMON NORMALS: patient oriented x3 and moves all extremities S ENSORIUM/ORIENTATION: Yes alert Skin: COMMON NORMALS: no rashes or lesions noted GENERAL SKIN EXAM: no rashes or lesions noted Urinary Catheter Management: Green: Cath Placed During This Visit: yes Reason for Continuing Indwelling Catheter: Accurate Measurement of Urinary Output in Critically Ill Patients Urinary Catheter Date of Insertion: 10/01/23 Urinary Catheter Time of Insertion: 18:15 Data 10/03/23 04:00 10/03/23 04:00 A&P Assessment and plan (1) Non-ST elevation CO (NSTEMI): Status post coronary angiogram. Reviewed vitals, CBC, BMP. BUN, creatinine. Creatinine up to 1.4. Recheck kidney function. At risk of reperfusion injury after reperfusion of diagonal branch yesterday with PCI. At risk of arrhythmia, monitor on telemetry. Today also with atrial fibrillation with RVR, cardiology optimizing control with beta-lopez. Check magnesium. Give potassium. Reviewed cardiology note Heparin drip. Monitor PTT. Aspirin 81 mg daily, metoprolol 12.5 mg twice daily. Patient is allergic to statins. Patient did states he is also allergic to metoprolol. She had bradycardia when she took some kind of beta-lopez many years ago. Patient is agreeable to continue on a small dose of metoprolol for now. (2) Diabetes mellitus type 2, controlled: A1c 8. Insulin sliding scale at moderate dose protocol. Depending on the requirement of insulin within next 24 hours we will plan for adding Lantus. Qualifiers: Diabetes mellitus nursing home insulin use: without nursing home use Diabetes mellitus complication status: without complication Qualified Code(s): E11.9 - Type 2 diabetes mellitus without complications (3) KIMANI (acute kidney injury): Mild worsening creatinine today up to 1.4. BUN 23. Recheck renal function. Discussed with case advocate. Baseline creatinine normal. Could be in setting of hyperglycemia versus ACS leading to congestive heart failure. Repeat BMP in afternoon. Lasix 20 mg daily for now. Most likely patient will need higher dose of diuresis. Green catheterization. Strict input output charting, daily weights. (4) Hypoxia: She is having some malaise today. Will check respiratory viral panel. Noted patchy bilateral infiltrates on CT chest reviewed. Additionally noted moderate bilateral continues on Lasix daily. Pleural effusions pending reassessment of renal function. Leukocytosis has resolved on review of CBC. In case of possible pneumonia continue on Zosyn empirically for now. Some possibility of aspiration. Most likely in setting of mild congestive heart failure though cannot rule out aspiration. Oxygen supplementation keeping saturation over 92%. Oral Lasix 40 mg daily. Strict improper charting, daily weights. Green catheterization. Fluid restriction up to 1500 cc. (5) Leukocytosis: Resolved. Unknown source for now. Infection so far less likely. Though cannot rule out aspiration pneumonitis. Could be in setting of acute reaction to ACS. UA negative for UTI, blood culture pending, urine Legionella, bacterial antigen negative. MRSA swab pending. Appreciate CT chest without contrast. Patient does have mild pneumonitis most likely aspiration but pneumonia less likely. Empirically for now we will continue with IV Zosyn. Will discontinue antibiotics rapidly if patient remains hemodynamically stable and afebrile. (6) Left ventricular systolic dysfunction (LVSD): (7) Congestive heart failure: Plan A-fib with RVR: Continuous monitoring on telemetry. Reviewed cardiology note, have been giving additional metoprolol doses with A-fib with RVR. Continue heparin drip. Malaise: Check respiratory viral panel. She reports that at home she uses scheduled 2 tablets of hydrocodone 7.5 mg every 6 hours in addition to gabapentin. She has been getting gabapentin but only 1 tablet of hydrocodone. Family expressed that she is likely withdrawing from hydrocodone. Request resuming her usual dose. Discussed risk with KIMANI risk of accumulation, respiratory depression. Currently is monitor telemetry. Naloxone added as needed. CODE STATUS: Discussed in detail with the patient. Her younger daughter Ms. Yen will be the DPOA. Patient is full code. Cardiac carb consistent diet. Heparin drip will suffice for DVT prophylaxis Protonix for PUD prophylaxis. Attestations 2 Medical Necessity Statement*: Continue admission for assessment management after NSTEMI, KIMANI, pneumonitis, possible aspiration pneumonia, congestive heart failure. Diagnoses Non-ST elevation CO (NSTEMI) I21.4 Controlled type 2 diabetes mellitus without complication, without long-term current use of insulin E11.9 Diabetes mellitus nursing home insulin use: without long term care phlebotomist use Diabetes mellitus complication status: without complication KIMANI (acute kidney injury) N17.9 Hypoxia R09.02 Leukocytosis D72.829 Left ventricular systolic dysfunction (LVSD) I51.9 Congestive heart failure I50.9
--- NOTE | 2023-10-03 21:51 | PC.NURSE ---
Spoke with regarding patient in rapid afib 140-150s, not currently on anticoagulation. ordered one time dose of IVP metoprolol and if HR does not drop below 120 after 20min may start amiodarone gtt.
[2023-10-03 21:55] LABS: Glucose Point of Care 224 mg/dL (70-110)
[2023-10-03] MEDS: metoprolol tartrate 1 mg/1 mL SDV 5 mL 5 MG IVP (22:15)
[2023-10-03] MEDS: potassium chloride ER 20 mEq Tablet PO (22:15)
[2023-10-03 22:58] LABS: Magnesium 2.1 mg/dL (1.7-2.3)
[2023-10-03] MEDS: amiodarone 150 MG/100 ML PREMIX 400 MG IV (23:29)
[2023-10-04] VITALS (12 sets, daily range): BP systolic 120–145; BP diastolic 86–126; PULSE 96–140; RESP 12–32; TEMP 36.4–37.2; O2SAT 92–97; BMI 34.0
[2023-10-04] MEDS: piperacillin-tazobactam 3.375 GM in sodium chloride 0.9% (plus) 50 ML IV ×3 (02:27→20:23)
[2023-10-04 06:20] LABS: Basophils % 0.2 %; Eosinophils % 0.1 %; Hematocrit 38.2 % (36-47); Lymphocytes # 1.2 10^3/uL (0.8-4.8); Lymphocytes % 9.5 %; Mean Corpuscular Hemoglobin 31.9 pg (27-33); Mean Corpuscular Volume 93.9 fl (85-98); Mean Platelet Volume 11.7 fL (7.4-10.4); Monocytes # 1.1 10^3/uL (0.2-0.9); Monocytes % 8.5 %; Neutrophils # 10.12 10^3/uL (1.8-7.7); Neutrophils % 80.8 %; Nucleated Red Blood Cells % 0 %; Platelet Count 200 10^3/cmm (157-399); Red Blood Count 4.07 10^6/uL (3.85-5.65); Red Cell Distribution Width 12.9 % (12.1-15.1); White Blood Count 12.52 10^3/uL (3.29-11.43)
[2023-10-04 06:30] LABS: Glucose Point of Care 255 mg/dL (70-110)
[2023-10-04 06:41] LABS: Anion Gap 19.4 (5-19); Blood Urea Nitrogen 22 mg/dL (8-23); Calcium 9.4 mg/dL (8.5-10.5); Carbon Dioxide 27 mmol/L (22-29); Chloride 89 mmol/L (98-107); Glucose 240 mg/dL (65-115); Osmolality Calculated 285 mOsm/kg (285-295); Potassium 3.4 mmol/L (3.5-5.1); Sodium 132 mmol/L (136-145)
[2023-10-04 06:47] LABS: Magnesium 2.1 mg/dL (1.7-2.3)
[2023-10-04 08:02] LABS: Adenovirus Not Detected (NOT DETECT); Chlamydia Pneumoniae Not Detected (NOT DETECT); Coronavirus 229E,HKU1,NL63,OC4 Not Detected (NOT DETECT); Human Metapneumovirus Not Detected (NOT DETECT); Human Rhinovirus/Enterovirus Not Detected (NOT DETECT); Influenza A Not Detected (NOT DETECT); Influenza A H1 Not Detected (NOT DETECT); Influenza A H1-2009 Not Detected (NOT DETECT); Influenza A H3 Not Detected (NOT DETECT); Influenza B Not Detected (NOT DETECT); Mycoplasma Pneumoniae Not Detected (NOT DETECT); Parainfluenza Virus Type 1 Not Detected (NOT DETECT); Parainfluenza Virus Type 2 Not Detected (NOT DETECT); Parainfluenza Virus Type 3 Not Detected (NOT DETECT); Parainfluenza Virus Type 4 Not Detected (NOT DETECT); Respiratory Syncytial Virus A Not Detected (NOT DETECT); Respiratory Syncytial Virus B Not Detected (NOT DETECT); SARS-COV-2 Not Detected (NOT DETECT)
[2023-10-04] MEDS: gabapentin 300 mg Capsule 600 MG PO ×2 (08:16→14:51)
[2023-10-04] MEDS: insulin lispro 100 unit/1 mL SUBCUT ×3 (08:16→21:48)
[2023-10-04] MEDS: isosorbide mononitrate ER 30 mg Tablet PO ×2 (08:16→18:34)
[2023-10-04] MEDS: FUROsemide 40 mg Tablet PO (08:16)
[2023-10-04] MEDS: pantoprazole DR 40 mg Tablet PO (08:17)
[2023-10-04] MEDS: aspirin 81 mg EC Tablet PO (08:17)
[2023-10-04] MEDS: metoprolol tartrate 25 mg Tablet PO (08:17)
[2023-10-04] MEDS: potassium chloride ER 10 mEq Tablet PO (08:17)
[2023-10-04] MEDS: amlodipine 10 mg Tablet PO (08:17)
[2023-10-04] MEDS: clopidogrel 75 mg Tablet PO (08:17)
[2023-10-04 12:18] LABS: Glucose Point of Care 207 mg/dL (70-110)
--- NOTE | 2023-10-04 17:42 | P.PN_ITS ---
Subjective 2 Subjective: Patient continues to have atrial fibrillation with RVR. No chest pain Vitals/I&O/Wt Last Vital Signs Temp 98.6 F 10/04/23 08:39 Pulse 115 H 10/04/23 14:52 Resp 22 H 10/04/23 14:52 BP 125/86 10/04/23 14:52 Pulse Ox 93 10/04/23 14:52 O2 Del Method Nasal Cannula 10/04/23 14:00 O2 Flow Rate 2 10/04/23 13:16 10/04/23 10/04/23 10/04/23 06:59 14:59 22:59 Intake Total 400 / 2140 240 / 240 50 / 290 Output Total 150 / 1300 Balance 250 / 840 240 / 240 50 / 290 Weight last 48 hrs Weight 186 lb Weight 186 lb Weight 186 lb Weight 178 lb 9.191 oz Physical Exam 2 Narrative: GENERAL: Patient is alert, awake and oriented x3. [] NECK: No jugular vein distension. [] HEENT: No cyanosis. No icterus. No pallor. [] HEART: Irregularly irregular, tachycardia LUNGS: Clear to auscultate bilaterally. [] CENTRAL NERVOUS SYSTEM: Grossly nonfocal. [] EXTREMITIES: Lower extremities with 1+ edema bilaterally. Urinary Catheter Management: Green: Cath Placed During This Visit: yes Reason for Continuing Indwelling Catheter: Accurate Measurement of Urinary Output in Critically Ill Patients Urinary Catheter Date of Insertion: 10/01/23 Urinary Catheter Time of Insertion: 18:15 Data 10/05/23 03:34 10/05/23 03:34 Micro: Microbiology 10/01/23 16:49 Blood Culture - Preliminary Blood 10/01/23 16:48 Blood Culture - Preliminary Blood A&P Assessment and plan (1) Elevated troponin: (2) Acute pulmonary edema: (3) Left ventricular systolic dysfunction (LVSD): (4) Atrial arrhythmia: (5) Diabetes mellitus type 2, controlled: Qualifiers: Diabetes mellitus mcc insulin use: without intermediate manager use Diabetes mellitus complication status: without complication Qualified Code(s): E11.9 - Type 2 diabetes mellitus without complications (6) Dyslipidemia: Plan Patient is staying in atrial fibrillation with RVR. To be started on amiodarone. Will add digoxin. Will also uptitrate metoprolol. Start anticoagulation. If heart rates do not improve, we will plan on MARCIAL cardioversion in 1 to 2 days. Continue Plavix and aspirin Thank you for involving us with care of this patient. We will continue to follow. Please call with questions. Attestations 2 Medical Necessity Statement*: Care expected to cross 2 midnights. Coding Level of Care Code Acute Code for Chg Fwd Diagnoses Elevated troponin R79.89 Acute pulmonary edema J81.0 Left ventricular systolic dysfunction (LVSD) I51.9 Atrial arrhythmia I49.8 Controlled type 2 diabetes mellitus without complication, without long-term current use of insulin E11.9 Diabetes mellitus intermediate manager insulin use: without mcc use Diabetes mellitus complication status: without complication Dyslipidemia E78.5
--- NOTE | 2023-10-04 18:32 | PM.PN ---
Subjective Subjective: She has been having diarrhea, multiple loose bowel movements a day. Breathing is doing okay. Not short of breath. No chest pain. In the afternoon with difficulty to wake her up noted by nursing staff. Her daughter noticed that her saturation was coming down into the 80s while she was sleeping and breathing seemed abnormal during that time, with improvement in breathing and with waking up saturation improved. She had a sleep study last time 6-7 years ago. Medications: Medication Review Details: Current Medications Acetaminophen (Acetaminophen 325 Mg Tablet) 650 mg PO Q6H PRN PRN Reason: Mild/Mod Pain Or Temp >/= 101 Hydrocodone Bitart/Acetaminophen (Hydrocodone-Acetaminophen 7.5-325 Mg Tablet) 1 tab PO Q6H PRN PRN Reason: Pain Last Admin: 10/03/23 05:50 Dose: 1 tab Amlodipine Besylate (Amlodipine 10 Mg Tablet) 10 mg PO DAILY [facility] Last Admin: 10/03/23 08:43 Dose: 10 mg Aspirin (Aspirin 81 Mg Ec Tablet) 81 mg PO DAILY [facility] Last Admin: 10/03/23 08:43 Dose: 81 mg Bisacodyl (Bisacodyl 5 Mg Tablet) 10 mg PO DAILY PRN; Protocol PRN Reason: Constipation (see protocol) Clopidogrel Bisulfate (Clopidogrel 75 Mg Tablet) 75 mg PO DAILY [facility] Last Admin: 10/03/23 08:44 Dose: 75 mg Dextrose (Dextrose 50% Syringe 50 Ml) 25 ml IVP ONCE PRN; Protocol PRN Reason: hypoglycemia protocol Dextrose (Dextrose 50% Syringe 50 Ml) 50 ml IVP PRN PRN; Protocol PRN Reason: hypoglycemia protocol Furosemide (Furosemide 40 Mg Tablet) 40 mg PO DAILY@0800 [facility] Last Admin: 10/03/23 08:44 Dose: 40 mg Gabapentin (Gabapentin 300 Mg Capsule) 600 mg PO TID [facility] Last Admin: 10/03/23 08:43 Dose: 600 mg Dextrose (D5w) 500 mls @ 0 mls/hr IV ONCE PRN; Protocol PRN Reason: Adult Acute Hypoglycemia Prot Piperacillin Sod/Tazobactam (Sod 3.375 gm/ Sodium Chloride) 50 mls @ 12.5 mls/hr IV Q8H [facility]; Protocol Last Infusion: 10/03/23 06:34 Dose: Infused Insulin Human Lispro (Insulin Lispro 100 Unit/1 Ml) 0 unit SUBCUT WM&BEDTIME [facility]; Protocol Last Admin: 10/03/23 08:44 Dose: 8 unit Ipratropium [place] (Ipratropium 0.5 Mg/2.5 Ml Neb) 0.5 mg INHALATION Q6H.RESP [facility] Last Admin: 10/03/23 07:53 Dose: 0.5 mg Isosorbide Mononitrate (Isosorbide Mononitrate Er 30 Mg Tablet) 30 mg PO BID [facility] Last Admin: 10/03/23 08:43 Dose: 30 mg Lactulose (Lactulose Oral Liq 20 Gm/30 Ml Udc) 10 gm PO DAILY PRN; Protocol PRN Reason: Constipation (see protocol) Levalbuterol HCl (Levalbuterol 0.63 Mg/3 Ml Neb) 0.63 mg INHALATION Q6H.RESP [facility] Last Admin: 10/03/23 07:53 Dose: 0.63 mg Magnesium Hydroxide (Magnesium Hydroxide 30 Ml Udc) 30 ml PO DAILY PRN; Protocol PRN Reason: Constipation (see protocol) Metoprolol Tartrate (Metoprolol Tartrate 25 Mg Tablet) 12.5 mg PO BID@0900,2100 [facility] Last Admin: 10/03/23 08:44 Dose: 12.5 mg Morphine Sulfate (Morphine 4 Mg/Ml Sdv 1 Ml) 2 mg IVP Q4H PRN PRN Reason: SEVERE PAIN Nitroglycerin (Nitroglycerin 0.4 Mg Sublingual Tablet) 0.4 mg SUBLINGUAL Q5M PRN PRN Reason: CHEST PAIN Ondansetron HCl (Ondansetron 2 Mg/Ml Sdv 2 Ml) 4 mg IVP Q8H PRN PRN Reason: vomiting, or N/V if npo Pantoprazole Sodium (Pantoprazole Dr 40 Mg Tablet) 40 mg PO DAILY [facility] Last Admin: 10/03/23 08:43 Dose: 40 mg Potassium Chloride (Potassium Chloride Er 10 Meq Tablet) 10 meq PO DAILY [facility] Last Admin: 10/03/23 08:44 Dose: 10 meq Vitals/I&O/Wt Last Vital Signs Temp 98.6 F 10/04/23 08:39 Pulse 115 H 10/04/23 14:52 Resp 22 H 10/04/23 14:52 BP 125/86 10/04/23 14:52 Pulse Ox 93 10/04/23 14:52 O2 Del Method Nasal Cannula 10/04/23 14:00 O2 Flow Rate 2 10/04/23 13:16 10/04/23 10/04/23 10/04/23 06:59 14:59 22:59 Intake Total 400 / 2140 240 / 240 50 / 290 Output Total 150 / 1300 Balance 250 / 840 240 / 240 50 / 290 Weight last 48 hrs Weight 84.368 kg Weight 84.368 kg Weight 84.368 kg Weight 81 kg Physical Exam Narrative: Accompanied by family. She is sitting up in bed. Second visit laying in bed, awake and alert. Const: COMMON NORMALS: patient oriented x3 and alert GENERAL APPEARANCE: cooperative ORIENTATION/CONSCIOUSNESS: Yes awake HENMT: COMMON NORMALS: oropharynx normal Neck/C-Spine: COMMON NORMALS: no JVD Resp: COMMON NORMALS: normal respiratory effort and clear to auscultation bilaterally AUSCULTATION: clear to auscultation bilaterally Cardio: COMMON NORMALS: no JVD, regular rhythm, S1 normal heart sound present, S2 normal heart sound present and No murmurs present (Cardio) RHYTHM: regular rhythm HEART SOUNDS: S1 normal heart sound present and S2 normal heart sound present GI: COMMON NORMALS: Normal to inspection, nondistended, normoactive bowel sounds present, Soft to palpation and non-tender PALPATION: Yes Soft to palpation Extremity: COMMON NORMALS: no joint enlargement and no pedal edema NARRATIVE EXTREMITY EXAM: Right hand perfused, no swelling or bleeding at the right wrist access site. Neuro: COMMON NORMALS: patient oriented x3 and moves all extremities SENSORIUM/ORIENTATION: Yes alert Skin: COMMON NORMALS: no rashes or lesions noted GENERAL SKIN EXAM: no rashes or lesions noted Urinary Catheter Management: Green: Cath Placed During This Visit: yes Reason for Continuing Indwelling Catheter: Accurate Measurement of Urinary Output in Critically Ill Patients Urinary Catheter Date of Insertion: 10/01/23 Urinary Catheter Time of Insertion: 18:15 Data 10/04/23 05:52 10/04/23 05:52 Micro: Microbiology 10/01/23 16:49 Blood Culture - Preliminary Blood 10/01/23 16:48 Blood Culture - Preliminary Blood A&P Assessment and plan (1) Paroxysmal atrial fibrillation with RVR: Difficult to control atrial fibrillation with RVR. Reviewed vitals, CBC, BMP. Reviewed magnesium. Reviewed respiratory viral panel. Reviewed cardiology note. Discussed with grant administrator. She was started on amiodarone drip this morning due to difficulties to control heart rate. Continues on metoprolol. Continue heart rate still not controlled, cardiology further considering adjustment of medications and possible addition of Cardizem versus digoxin. Reassess renal function with risk of toxicity with these medications with hypotension and/or digoxin toxicity. Monitor on telemetry. Continue Lovenox. Transition to oral anticoagulation when nearing end of hospitalization. Replace potassium. Recheck potassium. (2) Non-ST elevation NM (NSTEMI): Reviewed BUN, creatinine, with improvement, renal function is doing better today. Reassess renal function. Electrolytes. At risk of reperfusion injury after reperfusion of diagonal branch yesterday with PCI. At risk of arrhythmia, monitor on telemetry. Today also with atrial fibrillation with RVR, cardiology optimizing control with beta-lopez. Check magnesium. Give potassium. Reviewed cardiology note Heparin drip. Monitor PTT. Aspirin 81 mg daily, metoprolol 12.5 mg twice daily. Patient is allergic to statins. Patient did states he is also allergic to metoprolol. She had bradycardia when she took some kind of beta-lopez many years ago. Patient is agreeable to continue on a small dose of metoprolol for now. (3) Diabetes mellitus type 2, controlled: A1c 8. Insulin sliding scale at moderate dose protocol. Depending on the requirement of insulin within next 24 hours we will plan for adding Lantus. Qualifiers: Diabetes mellitus exterminator helper termite insulin use: without halfway use Diabetes mellitus complication status: without complication Qualified Code(s): E11.9 - Type 2 diabetes mellitus without complications (4) KIMANI (acute kidney injury): Mild worsening creatinine today up to 1.4. BUN 23. Recheck renal function. Discussed with bilingual case manager. Baseline creatinine normal. Could be in setting of hyperglycemia versus ACS leading to congestive heart failure. Repeat BMP in afternoon. Lasix 20 mg daily for now. Most likely patient will need higher dose of diuresis. Green catheterization. Strict input output charting, daily weights. (5) Hypoxia: She is having some malaise today. Will check respiratory viral panel. Noted patchy bilateral infiltrates on CT chest reviewed. Additionally noted moderate bilateral continues on Lasix daily. Pleural effusions pending reassessment of renal function. Leukocytosis has resolved on review of CBC. In case of possible pneumonia continue on Zosyn empirically for now. Some possibility of aspiration. Most likely in setting of mild congestive heart failure though cannot rule out aspiration. Oxygen supplementation keeping saturation over 92%. Oral Lasix 40 mg daily. Strict improper charting, daily weights. Green catheterization. Fluid restriction up to 1500 cc. (6) Leukocytosis: Resolved. Unknown source for now. Infection so far less likely. Though cannot rule out aspiration pneumonitis. Could be in setting of acute reaction to ACS. UA negative for UTI, blood culture pending, urine Legionella, bacterial antigen negative. MRSA swab pending. Appreciate CT chest without contrast. Patient does have mild pneumonitis most likely aspiration but pneumonia less likely. Empirically for now we will continue with IV Zosyn. Will discontinue antibiotics rapidly if patient remains hemodynamically stable and afebrile. (7) Left ventricular systolic dysfunction (LVSD): (8) Congestive heart failure: Ejection fraction 34%. Multiple wall motion abnormalities. Mild MVR. Mild TVR and PVR. Mild pulmonary hypertension. Continue daily 40 mg oral Lasix. Plan Hypoxia with sleep: Noted to have hypoxia and some irregular breathing while sleeping. This resolved with waking up. Had a sleep study but this was 6-7 years ago. Would benefit from repeat after discharge. Continue monitoring oxygenation. Difficult to arouse from sleep: Transient acute mental status change this afternoon when she was difficult to wake up from sleep, currently she is awake and alert. Denies any changes in how she feels. Will decrease gabapentin dose to 300 mg for tonight. Reassess. Repeating labs, additionally giving bladder scan to make sure urinary bladder is decompressed with Green. Reviewed respiratory viral panel, negative. Reviewed Accu-Cheks Malaise: Reviewed respiratory viral panel. Continue optimization of control of A-fib with RVR. Additional assessment as above. She does not take methocarbamol on a regular basis, only sometimes. CODE STATUS: Her younger daughter Ms. Yen will be the DPOA. Patient is full code. Attestations Medical Necessity Statement*: Continue optimization of control difficult to control A-fib with RVR. Diagnoses Paroxysmal atrial fibrillation with RVR I48.0 Non-ST elevation NM (NSTEMI) I21.4 Controlled type 2 diabetes mellitus without complication, without long-term current use of insulin E11.9 Diabetes mellitus exterminator helper termite insulin use: without exterminator helper termite use Diabetes mellitus complication status: without complication KIMANI (acute kidney injury) N17.9 Hypoxia R09.02 Leukocytosis D72.829 Left ventricular systolic dysfunction (LVSD) I51.9 Congestive heart failure I50.9
[2023-10-04] MEDS: digoxin 250 mcg/ml INJ 2 mL 500 MCG IVP (19:01)
[2023-10-04] MEDS: enoxaparin 100 mg/mL Syringe 85 MG SUBCUT (19:03)
[2023-10-04 19:07] LABS: Glucose Point of Care 198 mg/dL (70-110)
[2023-10-04 20:16] LABS: Basophils % 0.2 %; Eosinophils % 0.2 %; Hematocrit 38.2 % (36-47); Lymphocytes % 7.3 %; Mean Corpuscular Hemoglobin 31.9 pg (27-33); Mean Corpuscular Volume 93.6 fl (85-98); Mean Platelet Volume 12.1 fL (7.4-10.4); Monocytes # 1.1 10^3/uL (0.2-0.9); Monocytes % 8.3 %; Neutrophils # 11.09 10^3/uL (1.8-7.7); Neutrophils % 83.2 %; Nucleated Red Blood Cells % 0.2 %; Platelet Count 226 10^3/cmm (157-399); Red Blood Count 4.08 10^6/uL (3.85-5.65); Red Cell Distribution Width 13.1 % (12.1-15.1); White Blood Count 13.33 10^3/uL (3.29-11.43)
[2023-10-04] MEDS: metoprolol tartrate 25 mg Tablet 50 MG PO (20:24)
[2023-10-04] MEDS: gabapentin 300 mg Capsule PO (20:24)
[2023-10-04] MEDS: potassium chloride ER 20 mEq Tablet 40 MEQ PO (20:25)
[2023-10-04 20:33] LABS: Alanine Aminotransferase 17 U/L (0-33); Albumin Level 3.5 g/dL (3.5-5.2); Alkaline Phosphatase 49 U/L (35-105); Blood Urea Nitrogen 22 mg/dL (8-23); Calcium 8.8 mg/dL (8.5-10.5); Carbon Dioxide 29 mmol/L (22-29); Chloride 89 mmol/L (98-107); Globulin 3.5 g/dL (1.3-4.6); Glucose 200 mg/dL (65-115); Osmolality Calculated 281 mOsm/kg (285-295); Sodium 131 mmol/L (136-145); Total Bilirubin 0.8 mg/dL (0.15-1.2)
[2023-10-04 20:36] LABS: Anion Gap 16.1 (5-19); Aspartate Amino Transferase 22 U/L (0-32); Potassium 3.1 mmol/L (3.5-5.1)
[2023-10-04 21:29] LABS: Glucose Point of Care 219 mg/dL (70-110)
[2023-10-05] VITALS (10 sets, daily range): BP systolic 114–164; BP diastolic 56–88; PULSE 76–118; RESP 16–31; TEMP 36.5–36.9; O2SAT 89–96; BMI 34.0
[2023-10-05] MEDS: piperacillin-tazobactam 3.375 GM in sodium chloride 0.9% (plus) 50 ML IV ×3 (02:06→18:19)
[2023-10-05] MEDS: acetaminophen 325 mg Tablet 650 MG PO ×3 (02:13→21:33)
[2023-10-05 03:52] LABS: Basophils % 0.2 %; Eosinophils % 0.3 %; Hematocrit 34.8 % (36-47); Lymphocytes # 0.8 10^3/uL (0.8-4.8); Lymphocytes % 7.9 %; Mean Corpuscular HGB Conc 34.5 g/dL (30-55); Mean Corpuscular Hemoglobin 31.8 pg (27-33); Mean Corpuscular Volume 92.3 fl (85-98); Mean Platelet Volume 11.3 fL (7.4-10.4); Monocytes % 9.4 %; Neutrophils # 8.55 10^3/uL (1.8-7.7); Neutrophils % 81.5 %; Nucleated Red Blood Cells % 0.2 %; Platelet Count 211 10^3/cmm (157-399); Red Blood Count 3.77 10^6/uL (3.85-5.65); Red Cell Distribution Width 12.9 % (12.1-15.1); White Blood Count 10.49 10^3/uL (3.29-11.43)
[2023-10-05 04:13] LABS: Blood Urea Nitrogen 23 mg/dL (8-23); Calcium 9.1 mg/dL (8.5-10.5); Carbon Dioxide 26 mmol/L (22-29); Chloride 91 mmol/L (98-107); Glucose 163 mg/dL (65-115); Osmolality Calculated 279 mOsm/kg (285-295); Sodium 131 mmol/L (136-145)
[2023-10-05 04:44] LABS: Anion Gap 17.4 (5-19); Potassium 3.4 mmol/L (3.5-5.1)
[2023-10-05] MEDS: enoxaparin 100 mg/mL Syringe 85 MG SUBCUT ×2 (06:18→18:18)
[2023-10-05 06:45] LABS: Glucose Point of Care 183 mg/dL (70-110)
[2023-10-05] MEDS: FUROsemide 40 mg Tablet PO (07:34)
[2023-10-05] MEDS: insulin lispro 100 unit/1 mL SUBCUT ×3 (09:20→18:19)
[2023-10-05] MEDS: isosorbide mononitrate ER 30 mg Tablet PO ×2 (09:21→18:19)
[2023-10-05] MEDS: amlodipine 10 mg Tablet PO (09:21)
[2023-10-05] MEDS: potassium chloride ER 10 mEq Tablet PO (09:21)
[2023-10-05] MEDS: pantoprazole DR 40 mg Tablet PO (09:21)
[2023-10-05] MEDS: metoprolol tartrate 25 mg Tablet 50 MG PO ×2 (09:21→21:32)
[2023-10-05] MEDS: clopidogrel 75 mg Tablet PO (09:21)
[2023-10-05] MEDS: aspirin 81 mg EC Tablet PO (09:21)
--- NOTE | 2023-10-05 09:22 | P.PN_ITS ---
Subjective 2 Subjective: Patient is doing well. Heart rate has improved but still fluctuating. Vitals/I&O/Wt Last Vital Signs Temp 98.4 F 10/05/23 08:00 Pulse 76 10/05/23 08:13 Resp 16 10/05/23 08:13 BP 164/85 10/05/23 08:00 Pulse Ox 95 10/05/23 08:13 O2 Del Method Nasal Cannula 10/05/23 08:13 O2 Flow Rate 1 10/05/23 08:13 10/04/23 10/05/23 10/05/23 22:59 06:59 14:59 Intake Total 370 / 610 100 / 710 Output Total 1050 / 1050 800 / 1850 Balance -680 / -440 -700 / -1140 Weight last 48 hrs Weight 186 lb Weight 186 lb Weight 186 lb Weight 186 lb Physical Exam 2 Narrative: GENERAL: Patient is alert, awake and oriented x3. [] NECK: No jugular vein distension. [] HEENT: No cyanosis. No icterus. No pallor. [] HEART: Irregularly irregular, tachycardia LUNGS: Clear to auscultate bilaterally. [] CENTRAL NERVOUS SYSTEM: Grossly nonfocal. [] EXTREMITIES: Lower extremities with 1+ edema bilaterally. Urinary Catheter Management: Green: Cath Placed During This Visit: yes Reason for Continuing Indwelling Catheter: Accurate Measurement of Urinary Output in Critically Ill Patients Urinary Catheter Date of Insertion: 10/01/23 Urinary Catheter Time of Insertion: 18:15 Data 10/06/23 03:13 10/06/23 03:13 Micro: Microbiology 10/01/23 16:49 Blood Culture - Preliminary Blood 10/01/23 16:48 Blood Culture - Preliminary Blood A&P Assessment and plan (1) Elevated troponin: (2) Acute pulmonary edema: (3) Left ventricular systolic dysfunction (LVSD): (4) Atrial arrhythmia: (5) Diabetes mellitus type 2, controlled: Qualifiers: Diabetes mellitus senior living insulin use: without senior living use Diabetes mellitus complication status: without complication Qualified Code(s): E11.9 - Type 2 diabetes mellitus without complications (6) Dyslipidemia: Plan Patient's heart rate is still fluctuating. We will continue with amiodarone drip today. Tomorrow can switch to p.o. We will uptitrate metoprolol to 100 mg twice daily tomorrow. Continue digoxin. Check digoxin levels. Patient wants to hold off on cardioversion. We will continue with medical therapy. Thank you for involving us with care of this patient. We will continue to follow. Please call with questions. Attestations 2 Medical Necessity Statement*: Care expected to cross 2 midnights. Coding Level of Care Code Acute Code for Chg Fwd Diagnoses Elevated troponin R79.89 Acute pulmonary edema J81.0 Left ventricular systolic dysfunction (LVSD) I51.9 Atrial arrhythmia I49.8 Controlled type 2 diabetes mellitus without complication, without long-term current use of insulin E11.9 Diabetes mellitus intermodal owner operator truck driver insulin use: without intermodal owner operator truck driver use Diabetes mellitus complication status: without complication Dyslipidemia E78.5
--- NOTE | 2023-10-05 09:35 | PC.NURSE ---
Dr. Chan saw patient with nursing staff. He ordered digoxin 250 IVP now and again in 6 hours. Order entered.
[2023-10-05] MEDS: digoxin 250 mcg/ml INJ 2 mL IVP ×2 (09:49→16:27)
--- NOTE | 2023-10-05 11:24 | PC.SOCIAL ---
IMM Update pg 2 of IMM updated and reviewed w/ patient. Copy provided and copy dated, initialed and placed in chart.
[2023-10-05 12:11] LABS: Glucose Point of Care 216 mg/dL (70-110)
[2023-10-05] MEDS: HYDROcodone-acetaminophen 7.5-325 mg Tablet 2 TAB PO (16:27)
[2023-10-05 18:17] LABS: Glucose Point of Care 150 mg/dL (70-110)
--- NOTE | 2023-10-05 20:13 | PM.PN ---
Subjective Subjective: She is not here for a well today. Has been having bothersome diarrhea. Also having some headache. Vitals/I&O/Wt Last Vital Signs Temp 98.2 F 10/05/23 12:00 Pulse 89 10/05/23 16:35 Resp 19 H 10/05/23 16:35 BP 147/82 10/05/23 16:35 Pulse Ox 94 10/05/23 16:35 O2 Del Method Room Air 10/05/23 16:35 O2 Flow Rate 1 10/05/23 08:13 10/05/23 10/05/23 10/05/23 06:59 14:59 22:59 Intake Total 100 / 710 90 / 90 480 / 570 Output Total 800 / 1850 1100 / 1100 Balance -700 / -1140 -1010 / -1010 480 / -530 Weight last 48 hrs Weight 80.314 kg Weight 84.368 kg Weight 84.368 kg Weight 84.368 kg Physical Exam Const: COMMON NORMALS: patient oriented x3 and alert GENERAL APPEARANCE: cooperative ORIENTATION/CONSCIOUSNESS: Yes awake HENMT: COMMON NORMALS: oropharynx normal Neck/C-Spine: COMMON NORMALS: no JVD Resp: COMMON NORMALS: normal respiratory effort and clear to auscultation bilaterally AUSCULTATION: clear to auscultation bilaterally Cardio: COMMON NORMALS: no JVD, regular rhythm, S1 normal heart sound present, S2 normal heart sound present and No murmurs present (Cardio) RHYTHM: regular rhythm HEART SOUNDS: S1 normal heart sound present and S2 normal heart sound present GI: COMMON NORMALS: Normal to inspection, nondistended, normoactive bowel sounds present, Soft to palpation and non-tender PALPATION: Yes Soft to palpation Extremity: COMMON NORMALS: no joint enlargement and no pedal edema Neuro: COMMON NORMALS: patient oriented x3 and moves all extremities SENSORIUM/ORIENTATION: Yes alert Skin: COMMON NORMALS: no rashes or lesions noted GENERAL SKIN EXAM: no rashes or lesions noted Urinary Catheter Management: Green: Cath Placed During This Visit: yes Reason for Continuing Indwelling Catheter: Accurate Measurement of Urinary Output in Critically Ill Patients Urinary Catheter Date of Insertion: 10/01/23 Urinary Catheter Time of Insertion: 18:15 Data 10/05/23 03:34 10/05/23 03:34 Micro: Microbiology 10/01/23 16:49 Blood Culture - Preliminary Blood 10/01/23 16:48 Blood Culture - Preliminary Blood A&P Assessment and plan (1) Paroxysmal atrial fibrillation with RVR: Will switch over to oral amiodarone. Received digoxin. Will follow-up level with risk of toxicity. Reviewed vitals, CBC, electrolytes. Noted hypokalemia, requested replacement. Follow-up magnesium level. Reviewed cardiology note. Continues on metoprolol. Monitor on telemetry. Continue Lovenox. Transition to oral anticoagulation when nearing end of hospitalization. Replace potassium. Recheck potassium. (2) Hypoxia: Continue treatment of pneumonia, suspected aspiration. Does have diarrhea as well, C. difficile sent out. Follow-up. Reviewed, so far pending. Aspiration precautions. Continue Zosyn. Afebrile. No leukocytosis. Will check procalcitonin. She is having some malaise today. Will check respiratory viral panel. Noted patchy bilateral infiltrates on CT chest reviewed. Additionally noted moderate bilateral continues on Lasix daily. Pleural effusions pending reassessment of renal function. Leukocytosis has resolved on review of CBC. In case of possible pneumonia continue on Zosyn empirically for now. Some possibility of aspiration. Most likely in setting of mild congestive heart failure though cannot rule out aspiration. Oxygen supplementation keeping saturation over 92%. Oral Lasix 40 mg daily. Strict improper charting, daily weights. Green catheterization. Fluid restriction up to 1500 cc. (3) Non-ST elevation [place] (NSTEMI): Reviewed renal function. Follow-up. Monitor on telemetry. Risk of reperfusion injury. At risk of reperfusion injury after reperfusion of diagonal branch yesterday with PCI. At risk of arrhythmia, monitor on telemetry. Today also with atrial fibrillation with RVR, cardiology optimizing control with beta-lopez. Check magnesium. Give potassium. Reviewed cardiology note Heparin drip. Monitor PTT. Aspirin 81 mg daily, metoprolol 12.5 mg twice daily. Patient is allergic to statins. Patient did states he is also allergic to metoprolol. She had bradycardia when she took some kind of beta-lopez many years ago. Patient is agreeable to continue on a small dose of metoprolol for now. (4) Diabetes mellitus type 2, controlled: A1c 8. Insulin sliding scale at moderate dose protocol. Depending on the requirement of insulin within next 24 hours we will plan for adding Lantus. Qualifiers: Diabetes mellitus senior care insulin use: without keno terminal operator use Diabetes mellitus complication status: without complication Qualified Code(s): E11.9 - Type 2 diabetes mellitus without complications (5) KIMANI (acute kidney injury): Reviewed BUN and creatinine. Improvement in kidney function. Risk of KIMANI, electrolyte abnormality with diarrhea. Recheck chemistry. Baseline creatinine normal. Could be in setting of hyperglycemia versus ACS leading to congestive heart failure. Repeat BMP in afternoon. Lasix 20 mg daily for now. Most likely patient will need higher dose of diuresis. Green catheterization. Strict input output charting, daily weights. (6) Leukocytosis: Resolved. Unknown source for now. Infection so far less likely. Though cannot rule out aspiration pneumonitis. Could be in setting of acute reaction to ACS. UA negative for UTI, blood culture pending, urine Legionella, bacterial antigen negative. MRSA swab pending. Appreciate CT chest without contrast. Patient does have mild pneumonitis most likely aspiration but pneumonia less likely. Empirically for now we will continue with IV Zosyn. Will discontinue antibiotics rapidly if patient remains hemodynamically stable and afebrile. (7) Left ventricular systolic dysfunction (LVSD): (8) Congestive heart failure: Ejection fraction 34%. Multiple wall motion abnormalities. Mild MVR. Mild TVR and PVR. Mild pulmonary hypertension. Continue daily 40 mg oral Lasix. Plan Diarrhea: C. difficile sent out and pending. Add stool studies for Salmonella, Shigella, Campylobacter. Check WBC, occult blood. Hypoxia with sleep: Noted to have hypoxia and some irregular breathing while sleeping. This resolved with waking up. Had a sleep study but this was 6-7 years ago. Would benefit from repeat after discharge. Continue monitoring oxygenation. Difficult to arouse from sleep: Transient acute mental status change this afternoon when she was difficult to wake up from sleep, currently she is awake and alert. Denies any changes in how she feels. Will decrease gabapentin dose to 300 mg for tonight. Reassess. Repeating labs, additionally giving bladder scan to make sure urinary bladder is decompressed with Green. Reviewed respiratory viral panel, negative. Reviewed Accu-Cheks Malaise: Reviewed respiratory viral panel. Continue optimization of control of A-fib with RVR. Additional assessment as above. She does not take methocarbamol on a regular basis, only sometimes. CODE STATUS: Her younger daughter Ms. Yen will be the DPOA. Patient is full code. Attestations Medical Necessity Statement*: Continue optimization of control difficult to control A-fib with RVR. and High MDM includes amount and/or complexity of data reviewed/ordered [ resulted lab(s)/test(s), ordered lab(s)/test(s) and other healthcare professional discussion] and described risk of complication, morbidity or mortality of management as documented Diagnoses Paroxysmal atrial fibrillation with RVR I48.0 Hypoxia R09.02 Non-ST elevation SD (NSTEMI) I21.4 Controlled type 2 diabetes mellitus without complication, without long-term current use of insulin E11.9 Diabetes mellitus senior care insulin use: without senior care use Diabetes mellitus complication status: without complication KIMANI (acute kidney injury) N17.9 Leukocytosis D72.829 Left ventricular systolic dysfunction (LVSD) I51.9 Congestive heart failure I50.9
[2023-10-05] MEDS: amiodarone 200 mg Tablet 400 MG PO (21:32)
[2023-10-05] MEDS: potassium chloride ER 20 mEq Tablet 40 MEQ PO (21:33)
[2023-10-06] VITALS (9 sets, daily range): BP systolic 127–152; BP diastolic 74–90; PULSE 69–93; RESP 15–20; TEMP 37; O2SAT 93–96; BMI 32.0
[2023-10-06] MEDS: piperacillin-tazobactam 3.375 GM in sodium chloride 0.9% (plus) 50 ML IV ×3 (02:16→19:46)
[2023-10-06] MEDS: diphenhydrAMINE 25 mg Capsule PO ×2 (02:38→19:46)
[2023-10-06] MEDS: HYDROcodone-acetaminophen 7.5-325 mg Tablet 2 TAB PO ×3 (02:39→19:45)
--- NOTE | 2023-10-06 03:00 | PC.NURSE ---
Patient has had ongoing complaints of headache, is now complaining of itchiness and a puffy face and legs . Patient believes that these are being caused by an allergy to the detergent the hospital uses on linens. Assisted patient to recliner, with dressing into own clothing, and covered patient with own blanket. Bedside table and call light within reach. Educated patient on signs and symptoms of allergic reactions and to notify staff if symptoms increase or if new ones are experienced. Notified Dr. Gonsalez of concerns, was given a one time dose of Benadryl 25mg PO.
[2023-10-06 03:52] LABS: Basophils % 0.1 %; Eosinophils % 0.3 %; Hematocrit 34.2 % (36-47); Lymphocytes # 0.8 10^3/uL (0.8-4.8); Lymphocytes % 6.9 %; Mean Corpuscular HGB Conc 35.1 g/dL (30-55); Mean Corpuscular Hemoglobin 31.7 pg (27-33); Mean Corpuscular Volume 90.2 fl (85-98); Mean Platelet Volume 11.4 fL (7.4-10.4); Monocytes % 9.2 %; Neutrophils # 9.16 10^3/uL (1.8-7.7); Neutrophils % 82.6 %; Nucleated Red Blood Cells % 0.3 %; Platelet Count 269 10^3/cmm (157-399); Red Blood Count 3.79 10^6/uL (3.85-5.65); White Blood Count 11.08 10^3/uL (3.29-11.43)
[2023-10-06 04:08] LABS: Magnesium 2.2 mg/dL (1.7-2.3)
[2023-10-06 04:09] LABS: Digoxin 1.7 ng/mL (0.6-1.2)
[2023-10-06 04:31] LABS: Alanine Aminotransferase 20 U/L (0-33); Albumin Level 3.5 g/dL (3.5-5.2); Alkaline Phosphatase 50 U/L (35-105); Anion Gap 20.6 (5-19); Aspartate Amino Transferase 84 U/L (0-32); Blood Urea Nitrogen 23 mg/dL (8-23); Calcium 9.3 mg/dL (8.5-10.5); Carbon Dioxide 24 mmol/L (22-29); Chloride 88 mmol/L (98-107); Globulin 3.6 g/dL (1.3-4.6); Glucose 190 mg/dL (65-115); Osmolality Calculated 277 mOsm/kg (285-295); Potassium 3.6 mmol/L (3.5-5.1); Sodium 129 mmol/L (136-145); Total Bilirubin 0.8 mg/dL (0.15-1.2); Total Protein 7.1 g/dL (6.6-8.7)
[2023-10-06 04:43] LABS: Procalcitonin 0.29 ng/mL (0-0.5)
[2023-10-06] MEDS: enoxaparin 100 mg/mL Syringe 85 MG SUBCUT ×2 (05:03→18:02)
[2023-10-06 06:23] LABS: Glucose Point of Care 199 mg/dL (70-110)
--- NOTE | 2023-10-06 08:03 | P.PN_ITS ---
Subjective 2 Subjective: Patient's heart rate is controlled. Vitals/I&O/Wt Last Vital Signs Temp 98.6 F 10/06/23 05:24 Pulse 88 10/06/23 07:42 Resp 16 10/06/23 07:42 BP 149/83 10/06/23 07:42 Pulse Ox 95 10/06/23 07:42 O2 Del Method Room Air 10/06/23 05:24 O2 Flow Rate 1 10/05/23 08:13 10/05/23 10/06/23 10/06/23 22:59 06:59 14:59 Intake Total 850 / 940 50 / 990 Balance 850 / -160 50 / -110 Weight last 48 hrs Weight 175 lb 4 oz Weight 177 lb 1 oz Weight 186 lb Weight 186 lb Physical Exam 2 Narrative: GENERAL: Patient is alert, awake and oriented x3. [] NECK: No jugular vein distension. [] HEENT: No cyanosis. No icterus. No pallor. [] HEART: Irregularly irregular, tachycardia LUNGS: Clear to auscultate bilaterally. [] CENTRAL NERVOUS SYSTEM: Grossly nonfocal. [] EXTREMITIES: Lower extremities with 1+ edema bilaterally. Urinary Catheter Management: Green: Cath Placed During This Visit: yes Reason for Continuing Indwelling Catheter: Accurate Measurement of Urinary Output in Critically Ill Patients Urinary Catheter Date of Insertion: 10/01/23 Urinary Catheter Time of Insertion: 18:15 Data 10/07/23 03:15 10/07/23 03:15 A&P Assessment and plan (1) Elevated troponin: (2) Acute pulmonary edema: (3) Left ventricular systolic dysfunction (LVSD): (4) Atrial arrhythmia: (5) Diabetes mellitus type 2, controlled: Qualifiers: Diabetes mellitus shelter insulin use: without director long term care use Diabetes mellitus complication status: without complication Qualified Code(s): E11.9 - Type 2 diabetes mellitus without complications (6) Dyslipidemia: Plan Dig level was elevated. Stopped. We have uptitrated metoprolol to 100mg BID. Continue PO amiodarone Continue anticoagulation Thank you for involving us with care of this patient. We will continue to follow. Please call with questions. Attestations 2 Medical Necessity Statement*: Care expected to cross 2 midnights. Coding Level of Care Code Acute Code for [facility] Fwd Diagnoses Elevated troponin R79.89 Acute pulmonary edema J81.0 Left ventricular systolic dysfunction (LVSD) I51.9 Atrial arrhythmia I49.8 Controlled type 2 diabetes mellitus without complication, without long-term current use of insulin E11.9 Diabetes mellitus director long term care insulin use: without director long term care use Diabetes mellitus complication status: without complication Dyslipidemia E78.5
[2023-10-06] MEDS: insulin lispro 100 unit/1 mL SUBCUT ×4 (08:26→20:01)
[2023-10-06] MEDS: amiodarone 200 mg Tablet 400 MG PO ×2 (08:27→19:45)
[2023-10-06] MEDS: aspirin 81 mg EC Tablet PO (08:27)
[2023-10-06] MEDS: pantoprazole DR 40 mg Tablet PO (08:27)
[2023-10-06] MEDS: FUROsemide 40 mg Tablet PO (08:27)
[2023-10-06] MEDS: clopidogrel 75 mg Tablet PO (08:27)
[2023-10-06] MEDS: isosorbide mononitrate ER 30 mg Tablet PO ×2 (08:27→18:02)
[2023-10-06] MEDS: metoprolol tartrate 50 mg Tablet 100 MG PO ×2 (08:27→19:46)
[2023-10-06] MEDS: potassium chloride ER 10 mEq Tablet PO (08:28)
[2023-10-06] MEDS: amlodipine 10 mg Tablet PO (08:28)
[2023-10-06 09:05] LABS: Clostridium Difficile PCR NOT DETECTED (NOT DETECTED)
[2023-10-06] MEDS: loperamide 2 mg Capsule PO ×2 (10:28→18:02)
[2023-10-06 12:07] LABS: Glucose Point of Care 179 mg/dL (70-110)
[2023-10-06 17:32] LABS: Glucose Point of Care 181 mg/dL (70-110)
[2023-10-06 20:01] LABS: Glucose Point of Care 215 mg/dL (70-110)
[2023-10-07] VITALS (7 sets, daily range): BP systolic 108–132; BP diastolic 65–102; PULSE 82–105; RESP 9–18; TEMP 36.6–36.7; O2SAT 94–95; BMI 32.0
--- NOTE | 2023-10-07 00:11 | PM.PN ---
Subjective Subjective: She is still having profuse diarrhea. Had 1 episode of vomiting. Denies abdominal pain. Declines assessment with CT for now. Vitals/I&O/Wt Last Vital Signs Temp 98.6 F 10/06/23 05:24 Pulse 82 10/06/23 22:20 Resp 16 10/06/23 20:00 BP 128/83 10/06/23 20:00 Pulse Ox 94 10/06/23 20:00 O2 Del Method Room Air 10/06/23 12:00 O2 Flow Rate 1 10/05/23 08:13 10/06/23 10/06/23 10/07/23 14:59 22:59 06:59 Intake Total 120 / 120 670 / 790 50 / 840 Balance 120 / 120 670 / 790 50 / 840 Weight last 48 hrs Weight 79.492 kg Weight 79.492 kg Weight 80.314 kg Weight 84.368 kg Physical Exam Const: COMMON NORMALS: patient oriented x3 and alert GENERAL APPEARANCE: cooperative ORIENTATION/CONSCIOUSNESS: Yes awake HENMT: COMMON NORMALS: oropharynx normal Neck/C-Spine: COMMON NORMALS: no JVD Resp: COMMON NORMALS: normal respiratory effort and clear to auscultation bilaterally AUSCULTATION: clear to auscultation bilaterally Cardio: COMMON NORMALS: no JVD, regular rhythm, S1 normal heart sound present, S2 normal heart sound present and No murmurs present (Cardio) RHYTHM: regular rhythm HEART SOUNDS: S1 normal heart sound present and S2 normal heart sound present GI: COMMON NORMALS: Normal to inspection, nondistended, normoactive bowel sounds present, Soft to palpation and non-tender PALPATION: Yes Soft to palpation Extremity: COMMON NORMALS: no joint enlargement and no pedal edema NARRATIVE EXTREMITY EXAM: Right hand perfused, no swelling or bleeding at the right wrist access site. Neuro: COMMON NORMALS: patient oriented x3 and moves all extremities SENSORIUM/ORIENTATION: Yes alert Skin: COMMON NORMALS: no rashes or lesions noted GENERAL SKIN EXAM: no rashes or lesions noted Urinary Catheter Management: Green: Cath Placed During This Visit: yes Reason for Continuing Indwelling Catheter: Acute Urinary Retention or Obstruction Urinary Catheter Date of Insertion: 10/01/23 Urinary Catheter Time of Insertion: 18:15 Data 10/06/23 03:13 10/06/23 03:13 Micro: Microbiology 10/06/23 10:15 Stool Lactoferrin - Final Stool Occult Blood (FIT) - Final A&P Assessment and plan (1) Diarrhea: Profuse diarrhea, persist. Reviewed C. difficile, noted negative. Discussed with her. Added loperamide. Requested stool studies for Salmonella, Shigella, Campylobacter. Ova and parasites. At risk of dehydration, electrolyte abnormality. Hold Lasix for now. Did have an episode of vomiting as well. Reassess chemistry. She declines CT scan for now. Respiratory viral panel was negative. (2) Paroxysmal atrial fibrillation with RVR: Currently with good control. Reviewed cardiology note. Doing well per cardiology. Discussed with bilingual case manager. Continue oral amiodarone. Metoprolol. Noted metoprolol was increased up to 100 mg twice daily by cardiology. Monitor vitals. Reviewed digoxin level, noted elevated 1.7. Will repeat level. At risk of toxicity. Follow-up potassium level. Continues on metoprolol. Monitor on telemetry. Continue Lovenox. Transition to oral anticoagulation when nearing end of hospitalization. Replace potassium. Recheck potassium. (3) Hypoxia: Improving. Hypoxia resolving. On room air. Reviewed procalcitonin, 0.29. Continue antibiotics for now. Hold diuretics for now given profuse diarrhea. Continue treatment of pneumonia, suspected aspiration. Does have diarrhea as well, C. difficile sent out. Follow-up. Reviewed, so far pending. Aspiration precautions. Continue Zosyn. Afebrile. No leukocytosis. Will check procalcitonin. She is having some malaise today. Will check respiratory viral panel. Noted patchy bilateral infiltrates on CT chest reviewed. Additionally noted moderate bilateral continues on Lasix daily. Pleural effusions pending reassessment of renal function. Leukocytosis has resolved on review of CBC. In case of possible pneumonia continue on Zosyn empirically for now. Some possibility of aspiration. Most likely in setting of mild congestive heart failure though cannot rule out aspiration. Oxygen supplementation keeping saturation over 92%. Oral Lasix 40 mg daily. Strict improper charting, daily weights. Green catheterization. Fluid restriction up to 1500 cc. (4) Non-ST elevation [place] (NSTEMI): Reviewed renal function. Follow-up. Monitor on telemetry. Risk of reperfusion injury. At risk of reperfusion injury after reperfusion of diagonal branch yesterday with PCI. At risk of arrhythmia, monitor on telemetry. Today also with atrial fibrillation with RVR, cardiology optimizing control with beta-lopez. Check magnesium. Give potassium. Reviewed cardiology note Heparin drip. Monitor PTT. Aspirin 81 mg daily, metoprolol 12.5 mg twice daily. Patient is allergic to statins. Patient did states he is also allergic to metoprolol. She had bradycardia when she took some kind of beta-lopez many years ago. Patient is agreeable to continue on a small dose of metoprolol for now. (5) Diabetes mellitus type 2, controlled: A1c 8. Insulin sliding scale at moderate dose protocol. Depending on the requirement of insulin within next 24 hours we will plan for adding Lantus. Qualifiers: Diabetes mellitus fdc insulin use: without extermination inspector use Diabetes mellitus complication status: without complication Qualified Code(s): E11.9 - Type 2 diabetes mellitus without complications (6) KIMANI (acute kidney injury): Reviewed BUN and creatinine. Improvement in kidney function. Risk of KIMANI, electrolyte abnormality with diarrhea. Recheck chemistry. Baseline creatinine normal. Could be in setting of hyperglycemia versus ACS leading to congestive heart failure. Repeat BMP in afternoon. Lasix 20 mg daily for now. Most likely patient will need higher dose of diuresis. Green catheterization. Strict input output charting, daily weights. (7) Leukocytosis: Resolved. Unknown source for now. Infection so far less likely. Though cannot rule out aspiration pneumonitis. Could be in setting of acute reaction to ACS. UA negative for UTI, blood culture pending, urine Legionella, bacterial antigen negative. MRSA swab pending. Appreciate CT chest without contrast. Patient does have mild pneumonitis most likely aspiration but pneumonia less likely. Empirically for now we will continue with IV Zosyn. Will discontinue antibiotics rapidly if patient remains hemodynamically stable and afebrile. (8) Left ventricular systolic dysfunction (LVSD): (9) Congestive heart failure: Ejection fraction 34%. Multiple wall motion abnormalities. Mild MVR. Mild TVR and PVR. Mild pulmonary hypertension. Continue daily 40 mg oral Lasix. Plan Diarrhea: C. difficile sent out and pending. Add stool studies for Salmonella, Shigella, Campylobacter. Check WBC, occult blood. Hypoxia with sleep: Noted to have hypoxia and some irregular breathing while sleeping. This resolved with waking up. Had a sleep study but this was 6-7 years ago. Would benefit from repeat after discharge. Continue monitoring oxygenation. Difficult to arouse from sleep: Transient acute mental status change this afternoon when she was difficult to wake up from sleep, currently she is awake and alert. Denies any changes in how she feels. Will decrease gabapentin dose to 300 mg for tonight. Reassess. Repeating labs, additionally giving bladder scan to make sure urinary bladder is decompressed with Green. Reviewed respiratory viral panel, negative. Reviewed Accu-Cheks Malaise: Reviewed respiratory viral panel. Continue optimization of control of A-fib with RVR. Additional assessment as above. She does not take methocarbamol on a regular basis, only sometimes. CODE STATUS: Her younger daughter Ms. Yen will be the DPOA. Patient is full code. Attestations Medical Necessity Statement*: Continue optimization of persistent diarrhea, control difficult to control A-fib with RVR. and High MDM includes amount and/or complexity of data reviewed/ordered [ previous or external records, resulted lab(s)/test(s), ordered lab(s)/test(s) and other healthcare professional discussion] and described risk of complication, morbidity or mortality of management as documented Diagnoses Diarrhea R19.7 Paroxysmal atrial fibrillation with RVR I48.0 Hypoxia R09.02 Non-ST elevation [place] (NSTEMI) I21.4 Controlled type 2 diabetes mellitus without complication, without long-term current use of insulin E11.9 Diabetes mellitus fdc insulin use: without extermination inspector use Diabetes mellitus complication status: without complication KIMANI (acute kidney injury) N17.9 Leukocytosis D72.829 Left ventricular systolic dysfunction (LVSD) I51.9 Congestive heart failure I50.9
--- NOTE | 2023-10-07 00:23 | PC.NURSE ---
Patient requesting benadryl for her allergic reaction . Informed Dr Gonsalez. Received order for Benadryl 25mg po once now.
[2023-10-07] MEDS: loperamide 2 mg Capsule PO (01:11)
[2023-10-07] MEDS: HYDROcodone-acetaminophen 7.5-325 mg Tablet 2 TAB PO (01:11)
[2023-10-07] MEDS: diphenhydrAMINE 25 mg Capsule PO (01:12)
[2023-10-07] MEDS: piperacillin-tazobactam 3.375 GM in sodium chloride 0.9% (plus) 50 ML IV (01:12)
[2023-10-07 03:25] LABS: Basophils % 0.2 %; Eosinophils # 0.1 10^3/uL (0.0-0.8); Eosinophils % 0.7 %; Hematocrit 35.6 % (36-47); Lymphocytes # 0.9 10^3/uL (0.8-4.8); Lymphocytes % 8.8 %; Mean Corpuscular HGB Conc 34.8 g/dL (30-55); Monocytes # 1.2 10^3/uL (0.2-0.9); Monocytes % 11.3 %; Neutrophils % 78.2 %; Nucleated Red Blood Cells % 0.4 %; Platelet Count 273 10^3/cmm (157-399); Red Blood Count 3.87 10^6/uL (3.85-5.65); Red Cell Distribution Width 13.3 % (12.1-15.1); White Blood Count 10.22 10^3/uL (3.29-11.43)
[2023-10-07 03:48] LABS: Alanine Aminotransferase 19 U/L (0-33); Albumin Level 3.3 g/dL (3.5-5.2); Alkaline Phosphatase 49 U/L (35-105); Anion Gap 19.1 (5-19); Aspartate Amino Transferase 53 U/L (0-32); Blood Urea Nitrogen 24 mg/dL (8-23); Calcium 9.2 mg/dL (8.5-10.5); Carbon Dioxide 23 mmol/L (22-29); Chloride 88 mmol/L (98-107); Globulin 3.8 g/dL (1.3-4.6); Glucose 118 mg/dL (65-115); Osmolality Calculated 269 mOsm/kg (285-295); Potassium 3.1 mmol/L (3.5-5.1); Sodium 127 mmol/L (136-145); Total Bilirubin 0.9 mg/dL (0.15-1.2); Total Protein 7.1 g/dL (6.6-8.7)
[2023-10-07 04:20] LABS: Digoxin 1.1 ng/mL (0.6-1.2)
[2023-10-07] MEDS: enoxaparin 100 mg/mL Syringe 85 MG SUBCUT (05:22)
[2023-10-07 06:30] LABS: Glucose Point of Care 166 mg/dL (70-110)
--- NOTE | 2023-10-07 07:09 | P.PN_ITS ---
Subjective 2 Subjective: Patient is doing well. No chest pain. Heart rate is better controlled. Vitals/I&O/Wt Last Vital Signs Temp 97.9 F 10/07/23 05:45 Pulse 98 10/07/23 06:17 Resp 15 10/07/23 05:45 BP 122/102 10/07/23 05:45 Pulse Ox 95 10/07/23 05:45 O2 Del Method Room Air 10/07/23 05:45 O2 Flow Rate 1 10/05/23 08:13 10/06/23 10/07/23 10/07/23 22:59 06:59 14:59 Intake Total 670 / 790 100 / 890 Output Total 1000 / 1000 Balance 670 / 790 -900 / -110 Weight last 48 hrs Weight 175 lb 4 oz Weight 175 lb 4 oz Weight 177 lb 1 oz Physical Exam 2 Narrative: GENERAL: Patient is alert, awake and oriented x3. [] NECK: No jugular vein distension. [] HEENT: No cyanosis. No icterus. No pallor. [] HEART: Irregularly irregular, tachycardia LUNGS: Clear to auscultate bilaterally. [] CENTRAL NERVOUS SYSTEM: Grossly nonfocal. [] EXTREMITIES: Lower extremities with 1+ edema bilaterally. Urinary Catheter Management: Green: Cath Placed During This Visit: yes Reason for Continuing Indwelling Catheter: Acute Urinary Retention or Obstruction Urinary Catheter Date of Insertion: 10/01/23 Urinary Catheter Time of Insertion: 18:15 Data 10/07/23 03:15 10/07/23 03:15 Micro: Microbiology 10/06/23 10:15 Stool Lactoferrin - Final Stool Occult Blood (FIT) - Final A&P Assessment and plan (1) Sleep related hypoxia: (2) Elevated troponin: (3) Acute pulmonary edema: (4) Left ventricular systolic dysfunction (LVSD): (5) Atrial arrhythmia: (6) Diabetes mellitus type 2, controlled: Qualifiers: Diabetes mellitus buttermaker insulin use: without buttermaker use Diabetes mellitus complication status: without complication Qualified Code(s): E11.9 - Type 2 diabetes mellitus without complications (7) Dyslipidemia: Plan Patient's heart rate is better controlled. Continue current medications. Continue anticoagulation. Thank you for involving us with care of this patient. Patient is stable to be discharged from cardiology standpoint. Please call with questions. Attestations 2 Medical Necessity Statement*: Care expected to cross 2 midnights. Coding Level of Care Code Acute Code for [facility] Fwd Diagnoses Sleep related hypoxia G47.34 Elevated troponin R79.89 Acute pulmonary edema J81.0 Left ventricular systolic dysfunction (LVSD) I51.9 Atrial arrhythmia I49.8 Controlled type 2 diabetes mellitus without complication, without long-term current use of insulin E11.9 Diabetes mellitus buttermaker insulin use: without alf use Diabetes mellitus complication status: without complication Dyslipidemia E78.5
[2023-10-07] MEDS: aspirin 81 mg EC Tablet PO (08:14)
[2023-10-07] MEDS: amiodarone 200 mg Tablet 400 MG PO (08:14)
[2023-10-07] MEDS: metoprolol tartrate 50 mg Tablet 100 MG PO (08:14)
[2023-10-07] MEDS: isosorbide mononitrate ER 30 mg Tablet PO (08:14)
[2023-10-07] MEDS: insulin lispro 100 unit/1 mL SUBCUT (08:15)
[2023-10-07] MEDS: potassium chloride ER 10 mEq Tablet PO (08:15)
[2023-10-07] MEDS: clopidogrel 75 mg Tablet PO (08:15)
[2023-10-07] MEDS: pantoprazole DR 40 mg Tablet PO (08:15)
[2023-10-07] MEDS: amlodipine 10 mg Tablet PO (08:15)
[2023-10-07] MEDS: potassium chloride oral liq 20 mEq/15 mL UDC 40 MEQ PO (09:34)
[2023-10-07 10:56] LABS: Glucose Point of Care 163 mg/dL (70-110)
--- NOTE | 2023-10-07 11:03 | P.DS_ITS ---
Discharge Providers Date of Admission: 10/01/23 15:57 Date of Discharge: October 07, 2023 Attending Provider at Admission: Fermin Gomez MD Attending Provider at Discharge: Ranjeet Bertrand Primary Care Provider: Devon Walton MD Diagnoses at Discharge Discharge Diagnosis (1) Elevated troponin: Status: Acute (2) Acute pulmonary edema: Status: Acute (3) Left ventricular systolic dysfunction (LVSD): Status: Acute (4) Atrial arrhythmia: Status: Acute (5) Diabetes mellitus type 2, controlled: Status: Acute Qualifiers: Diabetes mellitus complication status: without complication Diabetes mellitus computer terminal operator insulin use: without fpc use Qualified Code(s): E11.9 - Type 2 diabetes mellitus without complications (6) Dyslipidemia: Status: Acute Reason for Visit Reason for Visit: n/v, chest tighteness Hospital Course Hospital Course 78-year-old lady with history of CAD, abnormal stress test, rheumatoid arthritis, latent treated tuberculosis, was admitted after presenting with chest pain, tightness, shortness of breath, nausea, found to have NSTEMI, acute pulm edema, decompensated CHF, atrial fibrillation with RVR, hypoxia down into the 70s, also noted mild aspiration pneumonitis, pneumonia, started on antibiotic coverage with Zosyn. With persistent symptoms underwent assessment and treatment by coronary angiography with finding of high-grade lesion in diagonal branch with difficult PCI, suboptimal result, but has remained chest pain-free. Some difficulty management of A-fib with RVR did not respond optimally to metoprolol, was started on amiodarone drip, received digoxin load. Cardioversion was considered, but heart rate gradually improved. She diuresed well, she was noted to have reduced ejection fraction down to 35%, multiple wall motion abnormalities on echocardiogram. Mild pulmonary hypertension as well as mild MVR, mild TVR and PVR. At discharge diuretics for now are held due to diarrhea, please reassess regarding resumption. Currently euvolemic. Slightly preceding and during hospitalization was also having diarrhea with multiple episodes per day. C. difficile was checked and was negative. Respiratory viral panel was checked and was negative as well. Possibly exacerbated by antibiotic, completed 5-day course of Zosyn while in hospital, antibiotic was not continued as her respiratory function otherwise improved, she weaned off oxygen to room air. Additional stool studies were requested with Salmonella, Shigella, Campylobacter, ova and parasites. Please follow-up. With negative C. difficile Imodium was added as needed for now. Today she requested discharge home adamantly, no matter what, states that she will otherwise walk out of the hospital in case she is not discharged. She is still having diarrhea, but states it is improving. No vomiting. Discussed with cardiology, family, embedded case manager, arrangements were made for home health, a walker was arranged for her, family may consider obtaining a commode. Additionally while in the hospital she was noted to have some hypoxia and some irregular breathing while sleeping, this may be contributing to the difficult to control A-fib with RVR. She is referred as per discussion with her and family for additional assessment by sleep study. Please follow-up. During hospitalization also noted KIMANI, creatinine as high as 1.4, but this has been improving, came down to 1-1.1. Please follow-up renal function. Please reassess also regarding polypharmacy, high risk medications. Physical Exam Narrative: Accompanied by family. She is sitting up in chair. States cannot sleep in the hospital. Const: COMMON NORMALS: patient oriented x3 and alert GENERAL APPEARANCE: cooperative ORIENTATION/CONSCIOUSNESS: Yes awake HENMT: COMMON NORMALS: oropharynx normal Neck/C-Spine: COMMON NORMALS: no JVD Resp: COMMON NORMALS: normal respiratory effort and clear to auscultation bilaterally AUSCULTATION: clear to auscultation bilaterally Cardio: COMMON NORMALS: no JVD, regular rhythm, S1 normal heart sound present, S2 normal heart sound present and No murmurs present (Cardio) RHYTHM: regular rhythm HEART SOUNDS: S1 normal heart sound present and S2 normal heart sound present GI: COMMON NORMALS: Normal to inspection, nondistended, normoactive bowel sounds present, Soft to palpation and non-tender PALPATION: Yes Soft to palpation Extremity: COMMON NORMALS: no joint enlargement and no pedal edema NARRATIV E EXTREMITY EXAM: Right hand perfused, no swelling or bleeding at the right wrist access site. Neuro: COMMON NORMALS: patient oriented x3 and moves all extremities SENSORIUM/ORIENTATION: Yes alert Skin: COMMON NORMALS: no rashes or lesions noted GENERAL SKIN EXAM: no rashes or lesions noted Urinary Catheter Management: Green: Cath Placed During This Visit: yes Reason for Continuing Indwelling Catheter: Acute Urinary Retention or Obstruction Urinary Catheter Date of Insertion: 10/01/23 Urinary Catheter Time of Insertion: 18:15 Discharge Data Studies Completed and Pending Completed Studies During Hospitalization Category Date Time Status CT abdomen pelvis wo con [id number] Routine Cat Scan 10/02/23 08:[address] chest wo con [id number] Urgent Cat Scan 10/01/23 17:17 Completed DEVELOPMENT ENG request for service Routine Exams 10/02/23 12:09 Completed XR chest 1V portable [id number] Stat Exams 10/01/23 14:12 Completed CV. echo complete* [id number] Routine Ultrasound 10/01/23 17:17 Completed Pending at discharge Category Date Time Status Blood Cultures ([facility]) Routine Lab 10/01/23 16:48 Results Blood Cultures ([facility]) Routine Lab 10/01/23 16:49 Results Complete Blood Count w/Auto AM LABS Lab 10/08/23 04:00 Ordered Comprehensive Metabolic Panel AM LABS Lab 10/08/23 04:00 Ordered Digoxin AM LABS Lab 10/08/23 04:00 Ordered Digoxin AM LABS Lab 10/09/23 04:00 Ordered Histoplasma Galactomannan Ag Routine Lab 10/04/23 19:05 Ordered Histoplasma Quantitative AG Routine Lab 10/04/23 19:05 Ordered OVA and Parasites, Conc and PE Routine Lab 10/05/23 20:14 Ordered Salmonella / Shigella / Campy Routine Lab 10/05/23 20:14 Ordered Radiology Impressions Chest X-Ray 10/01/23 14:12 IMPRESSION: Increased interstitial lung markings most suggestive of pulmonary edema. Chest CT 10/01/23 17:17 IMPRESSION: 1. Patchy bilateral airspace infiltrates. 2. Scattered subcentimeter short axis nonspecific mediastinal lymph nodes. 3. Moderate bilateral pleural effusions. 4. Coronary artery atherosclerotic calcifications. 5. Cardiomegaly. 6. Cholecystectomy. 7. Ascending thoracic aorta dilated to 4.2 cm. Abdomen/Pelvis CT 10/02/23 08:02 IMPRESSION: No acute abdominal findings. Small bilateral pleural effusions. Laboratory Results WBC 10.22 10^3/uL (3.29-11.43) 10/07/23 03:15 RBC 3.87 10^6/uL (3.85-5.65) 10/07/23 03:15 Hgb 12.40 g/dL (11.27-16.99) 10/07/23 03:15 Hct 35.6 % (36-47) L 10/07/23 03:15 MCV 92.0 fl (85-98) 10/07/23 03:15 MCH 32.0 pg (27-33) 10/07/23 03:15 MCHC 34.8 g/dL (30-55) 10/07/23 03:15 RDW 13.3 % (12.1-15.1) 10/07/23 03:15 Plt Count 273 10^3/cmm (157-399) 10/07/23 03:15 MPV 11.0 fL (7.4-10.4) H 10/07/23 03:15 Neut % (Auto) 78.2 % 10/07/23 03:15 Lymph % (Auto) 8.8 % 10/07/23 03:15 Wirt % (Auto) 11.3 % 10/07/23 03:15 Eos % (Auto) 0.7 % 10/07/23 03:15 Baso % (Auto) 0.2 % 10/07/23 03:15 Neut # (Auto) 8.00 10^3/uL (1.8-7.7) H 10/07/23 03:15 Lymph # (Auto) 0.9 10^3/uL (0.8-4.8) 10/07/23 03:15 Wirt # (Auto) 1.2 10^3/uL (0.2-0.9) H 10/07/23 03:15 Eos # (Auto) 0.1 10^3/uL (0.0-0.8) 10/07/23 03:15 Baso # (Auto) 0.0 10^3/uL (0.0-0.1) 10/07/23 03:15 Nucleated RBC % (auto) 0.4 % 10/07/23 03:15 Nucleated RBCs # 0.0 /100WBC 10/07/23 03:15 PT 13.70 SECONDS (12.1-14.9) 10/01/23 Unknown INR 1.02 (0.8-1.2) 10/01/23 Unknown APTT 94.6 SECONDS (23.9-36.7) H D 10/02/23 08:31 Sodium 127 mmol/L (136-145) L 10/07/23 03:15 Potassium 3.1 mmol/L (3.5-5.1) L 10/07/23 03:15 Chloride 88 mmol/L (98-107) L 10/07/23 03:15 Carbon Dioxide 23 mmol/L (22-29) 10/07/23 03:15 Anion Gap 19.1 (5-19) H 10/07/23 03:15 BUN 24 mg/dL (8-23) H 10/07/23 03:15 Creatinine 1.1 mg/dL (0.5-0.9) H 10/07/23 03:15 GFR Calculation Not Reportable 10/07/23 03:15 Glucose 118 mg/dL (65-115) H 10/07/23 03:15 POC Glucose 163 mg/dL (70-110) H 10/07/23 10:44 Estimat Average Glucose 183 10/02/23 03:04 Hemoglobin A1c 8.0 % (4.0-6.0) H 10/02/23 03:04 Calculated Osmolality 269 mOsm/kg (285-295) L 10/07/23 03:15 Lactic Acid 3.9 mmol/L (0.5-2.2) H 10/01/23 14:34 Lactic Acid (Sepsis) 5.5 mmol/L (0.5-2.2) H* 10/01/23 18:34 Lactate 2.2 mmol/L (0.5-2.2) 10/02/23 08:31 Calcium 9.2 mg/dL (8.5-10.5) 10/07/23 03:15 Phosphorus 4.4 mg/dL (2.5-4.5) 10/02/23 03:04 Magnesium 2.2 mg/dL (1.7-2.3) 10/06/23 03:13 Iron 66 ug/dL (37-145) 10/01/23 Unknown TIBC 287 mcg/dl 10/01/23 Unknown % Saturation 22.9 % (20-50) 10/01/23 Unknown Unsat Iron Binding 221 ug/dL (112-347) 10/01/23 Unknown Total Bilirubin 0.9 mg/dL (0.15-1.2) 10/07/23 03:15 AST 53 U/L (0-32) H 10/07/23 03:15 ALT 19 U/L (0-33) 10/07/23 03:15 Alkaline Phosphatase 49 U/L (35-105) 10/07/23 03:15 Troponin T 5th Gen ng/L 399 ng/L (0-10) H* 10/02/23 03:04 Troponin T Baseline 181 ng/L (0-10) H* 10/01/23 Unknown Troponin T 120 Minute 291.4 ng/L (0-10) H 10/01/23 16:39 Delta Troponin T 110.4 ABS# (0-10) H* 10/01/23 16:39 Troponin T Hi Sens 6Hr 464.5 ng/L (0-10) H 10/01/23 20:30 Troponin T Hi Sens 6Hr Delta 283.5 ng/L (0-12) H* 10/01/23 20:30 NT-Pro-B Natriuret Pep 2172 pg/mL (0-450) H 10/01/23 Unknown Total Protein 7.1 g/dL (6.6-8.7) 10/07/23 03:15 Albumin 3.3 g/dL (3.5-5.2) L 10/07/23 03:15 Globulin 3.8 g/dL (1.3-4.6) 10/07/23 03:15 Triglycerides 180 mg/dL (0-150) H 10/02/23 03:04 Cholesterol 180 mg/dL (0-200) 10/02/23 03:04 LDL Cholesterol, Calc 104 mg/dL (50-129) 10/02/23 03:04 HDL Cholesterol 40 mg/dL (60-100) L 10/02/23 03:04 LDL/HDL Ratio 2.60 RATIO (0.00-3.22) 10/02/23 03:04 Cholesterol/HDL Ratio 4.50 mg/dL (0.0-4.40) H 10/02/23 03:04 Vitamin B12 378 pg/mL (232-1245) 10/01/23 Unknown Folate 15.4 ng/mL (4.8-37.3) 10/02/23 03:04 Procalcitonin 0.29 ng/mL (0-0.5) 10/06/23 03:13 TSH 0.55 uIU/mL (0.27-4.20) 10/01/23 Unknown Prolactin 19.79 ng/mL (4.8-23.3) 10/01/23 14:34 Urine Color Colorless (Yellow) 10/01/23 18:05 Urine Appearance Hazy (CLEAR) A 10/01/23 18:05 Urine pH 7 (5-7) 10/01/23 18:05 Ur Specific Christoval 1.010 (1.005-1.030) 10/01/23 18:05 Urine Protein 1+ (Negative) H 10/01/23 18:05 Urine Glucose (UA) 4+ (Normal) H 10/01/23 18:05 Urine Ketones 1+ (Negative) H 10/01/23 18:05 Urine Blood Trace (Negative) H 10/01/23 18:05 Urine Nitrate Negative (Negative) 10/01/23 18:05 Urine Bilirubin Neg (Negative) 10/01/23 18:05 Urine Urobilinogen Norm mg/dL (Negative) 10/01/23 18:05 Ur Leukocyte Esterase Trace (Negative) H 10/01/23 18:05 Urine RBC 5-10 /hpf (0-2) H 10/01/23 18:05 Urine WBC 0-4 /hpf (0-5) H 10/01/23 18:05 Ur Squamous Epith Cells 5-10 /hpf (0-5) H 10/01/23 18:05 Amorphous Sediment Not Reportable 10/01/23 18:05 Urine Bacteria 1+ /hpf (NONE) H 10/01/23 18:05 Urine Mucus 1+ /hpf 10/01/23 18:05 Digoxin 1.1 ng/mL (0.6-1.2) 10/07/23 03:15 Adenovirus (PCR) Not detected (NOT DETECT) 10/04/23 05:10 C. pneumoniae DNA (PCR) Not detected (NOT DETECT) 10/04/23 05:10 C. difficile Tox (PCR) Not detected (NOT DETECTED) 10/04/23 14:15 Coronavirus 229E (PCR) Not detected (NOT DETECT) 10/04/23 05:10 Human Metapneumovir PCR Not detected (NOT DETECT) 10/04/23 05:10 Influenza A (H1) PCR Not detected (NOT DETECT) 10/04/23 05:10 Influ A (H1/09) PCR Not detected (NOT DETECT) 10/04/23 05:10 Influenza A (H3) PCR Not detected (NOT DETECT) 10/04/23 05:10 Influenza Type A Ag negative (Negative) 10/01/23 14:24 Influenza Type A (PCR) Not detected (NOT DETECT) 10/04/23 05:10 Influenza Type B Ag negative (Negative) 10/01/23 14:24 Influenza Type B (PCR) Not detected (NOT DETECT) 10/04/23 05:10 M. pneumoniae (PCR) Not detected (NOT DETECT) 10/04/23 05:10 Parainfluenza 1 (PCR) Not detected (NOT DETECT) 10/04/23 05:10 Parainfluenza 2 (PCR) Not detected (NOT DETECT) 10/04/23 05:10 Parainfluenza 3 (PCR) Not detected (NOT DETECT) 10/04/23 05:10 Parainfluenza 4 (PCR) Not detected (NOT DETECT) 10/04/23 05:10 RSV Type A (PCR) Not detected (NOT DETECT) 10/04/23 05:10 RSV Type B (PCR) Not detected (NOT DETECT) 10/04/23 05:10 Entero/Rhino (PCR) Not detected (NOT DETECT) 10/04/23 05:10 SARS-CoV-2 (PCR) Not detected (NOT DETECT) 10/04/23 05:10 SARS-CoV-2 Ag (Rapid) negative (Negative) 10/01/23 14:24 MRSA (PCR) Not detected (NOT DETECTED) 10/01/23 17:30 Vitals Last Vital Signs Temp 98.0 F 10/07/23 07:29 Pulse 105 H 10/07/23 07:48 Resp 18 10/07/23 07:48 BP 132/87 10/07/23 07:29 Pulse Ox 95 10/07/23 07:48 O2 Del Method Room Air 10/07/23 07:48 O2 Flow Rate 1 10/05/23 08:13 Discharge Plan Discharge Patient Disposition: Home Health Service Condition: Stable Prescriptions: New aspirin 81 mg Tablet,Delayed Release (Dr/Ec) 81 mg PO DAILY Qty: 90 0RF loperamide 2 mg Capsule 2 mg PO QID PRN (Reason: Diarrhea) Qty: 30 1RF Pacerone 200 mg Tablet 400 mg PO Q12H Qty: 180 0RF isosorbide mononitrate 30 mg Tablet Extended Release 24 Hr 30 mg PO BID Qty: 180 0RF clopidogrel 75 mg Tablet 75 mg PO DAILY Qty: 90 0RF amlodipine 10 mg Tablet 10 mg PO DAILY Qty: 90 0RF metoprolol tartrate 50 mg Tablet 100 mg PO BID@0900,2100 Qty: 180 0RF nitroglycerin 0.4 mg Tablet, Sublingual 0.4 mg sublingual Q5M PRN (Reason: Chest Pain) Qty: 25 0RF Eliquis 5 mg tablet 5 mg PO BID Qty: 180 0RF Continued hydrocodone-acetaminophen 7.5-325 mg tablet 1 - 2 tab PO Q6H PRN (Reason: Pain) cholecalciferol (vitamin D3) 1,000 unit capsule 1,000 unit PO BID cetirizine [Zyrtec] 10 mg tablet 5 mg PO DAILY (DME) Monoject TB Safety Syringe 1 mL 25 gauge x 5/8 syringe See Rx Instructions .ROUTE .MEDSUPPLY Qty: 50 1RF Rx Instructions: As directed prednisone 10 mg tablet See Rx Instructions PO .COMPLEX PRN (Reason: joint pain) Qty: 30 1RF Rx Instructions: take 1 tab daily for 3-7 days prn joint pain flare PO PRN; potassium chloride 20 mEq tablet,ER particles/crystals 20 meq PO DAILY methocarbamol 750 mg tablet 750 mg PO TID PRN (Reason: Pain) gabapentin 300 mg capsule 600 mg PO TID Held metformin 500 mg tablet extended release 24 hr 1,000 mg PO QAM Hold Instructions: Resume on 10/13/23. furosemide 40 mg tablet 40 mg PO BID Hold Instructions: Resume on 10/13/23. spironolactone 25 mg tablet 25 mg PO DAILY Hold Instructions: Resume on 10/13/23. Discharge Orders: Discharge Order (Routine); Ordered 10/07/23 Ordered By: Ranjeet Bertrand Other Ambulatory Orders: DME: Walker (Order) Location: None Selected Ordered By: Ranjeet Bertrand Sleep Study/Titration (Routine) Timeframe: 3 Days Facility: [facility] - Location: [facility] Ordered By: Ranjeet Bertrand Referrals: [facility] ([facility]) [Outside] Guanakito Kemp MD [Physician] - (We have notified your physician's clinic of the need for a follow-up appointment to be scheduled. If you have not heard from them within the next 2 business days, please call them directly. per answering service for clinic appointments/will contact Chela or daughter Yovana BROWN for follow up of this appointment.) Naa Cobb FNP [Nurse Practitioner] - 10/13/23 1:00 pm Devon Walton MD [Primary Care Provider] - 4-7 days Discharge Diet: Diabetic Discharge Activity: Increase activity as tolerated and Use walker/crutches as instructed Patient Instructions: Aspirin (By mouth), Clopidogrel (By mouth), Coronary Angioplasty (DC), Acute Kidney Injury (GEN), Gastroenteritis (GEN), Fall Prevention (GEN), Aspiration Precautions (GEN), Carotid Artery Stent Placement (GEN) Activity Restrictions/Additional Instructions: Follow-up with your primary doctor and cardiology for reassessment of coronary artery disease, reassessment after stent placement. Continue aspirin and Plavix without discontinuation unless directed to do so by your primary doctor as this may lead to stent closure, risk of severe heart attack. Aspirin Plavix due to increased risk of bleeding, avoid injury, seek medical attention in case of concerning bleeding. Follow-up with your primary doctor and cardiology regarding atrial fibrillation. Follow-up with sleep study as sleep apnea can contribute to atrial fibrillation that may be difficult to control. Continue amiodarone, metoprolol. Follow-up with cardiology to consider options of switching away from amiodarone. Follow- up with your primary doctor for monitoring for any amiodarone related toxicities including your eyes, thyroid, lung, liver. Follow-up with your primary doctor for additional assessment of diarrhea, gastroenteritis. Follow-up on the send stool studies. Avoid lactose for now while recovering from diarrhea. Hold metformin, spironolactone, Lasix for now as well until diarrhea is letting up. Metformin can contribute to diarrhea. Spironolactone, Lasix are held to avoid dehydration. Use your walker at all times. Avoid falls. Consider obtaining bedside commode. Once diarrhea is subsiding, continue fluid restriction 1500 mL/day to avoid further buildup of fluid. Seek medical attention immediately in case of experiencing chest pain or pressure, worsening shortness of breath, inability to eat drink or take medications, or any other worsening or concerning symptoms. Discharge Attestations Time Spent in Discharge Care*: greater than 30 min Quality Metrics Clinical Quality Measures [ No reported AMI, CVA or VTE this stay] Coding Level of Care Code 07508 Total time (in minutes) for Discharge: 50 Diagnoses Elevated troponin R79.89 Acute pulmonary edema J81.0 Left ventricular systolic dysfunction (LVSD) I51.9 Atrial arrhythmia I49.8 Controlled type 2 diabetes mellitus without complication, without long-term current use of insulin E11.9 Diabetes mellitus complication status: without complication Diabetes mellitus computer terminal operator insulin use: without fpc use Dyslipidemia E78.5
--- NOTE | 2023-10-07 11:04 | PC.SOCIAL ---
IMM Update pg 2 of IMM updated and reviewed w/ patient. Copy provided and copy dated, initialed and placed in chart.
--- NOTE | 2023-10-07 13:00 | PC.NURSE ---
Discharge Note Patient discharged to home via POV accompanied by family. 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 Mobile pharmacy medications and/or prescriptions provided. Belongings/home medications returned.
== END 2023-10-07 12:00 | disposition home health service (06) | DRG 321 ==
LOC: ER 16:02 → CSU 16:51
PROVIDERS: Emergency Medicine; Family Medicine; Internal Medicine Cardiovascular Disease; Admitting Provider Student in an Organized Health Care Education/Training Program; Emergency Provider Internal Medicine; PCP Family Medicine; Visit Provider Internal Medicine
PROC: 027034Z Dilation of Coronary Artery, One Artery with Drug-eluting Intraluminal Device, Percutaneous Approach (ICD-10-PCS; principal; 2023-10-02 14:00)
DX: I21.4 Non-ST elevation (NSTEMI) myocardial infarction (principal); I50.23 Acute on chronic systolic (congestive) heart failure; J69.0 Pneumonitis due to inhalation of food and vomit; I42.8 Other cardiomyopathies; N17.9 Acute kidney failure, unspecified; I48.0 Paroxysmal atrial fibrillation; Z82.49 Family history of ischemic heart disease and other diseases of the circulatory system; Z86.15 Personal history of latent tuberculosis infection; L40.50 Arthropathic psoriasis, unspecified; L40.9 Psoriasis, unspecified; I25.10 Atherosclerotic heart disease of native coronary artery without angina pectoris; E78.5 Hyperlipidemia, unspecified; R00.1 Bradycardia, unspecified; R09.02 Hypoxemia; D72.829 Elevated white blood cell count, unspecified; E11.9 Type 2 diabetes mellitus without complications; E87.6 Hypokalemia; R19.7 Diarrhea, unspecified; Z88.8 Allergy status to other drugs, medicaments and biological substances; I25.84 Coronary atherosclerosis due to calcified coronary lesion
CPT/HCPCS: 36415; 36416; 51702; 71045; 71250; 74176; 80048; 80053; 80061; 80162; 81001; 82274; 82607; 82746; 82962; 83036; 83540; 83550; 83605; 83630; 83735; 83880; 84100; 84145; 84146; 84443; 84484; 85025; 85347; 85610; 85730; 86403; 87040; 87426; 87449; 87486; 87493; 87581; 87633; 87641; 87804; 93005; 93306; 93458; 94640; 94664; 96365; 96367; 96372; 96375; 96376; 99152; 99153; 99285; A4222; A9270; C1725; C1769; C1874; C1887; C1894; C9600; J0283; J0696; J1160; J1200; J1644; J1650; J1815; J1940; J2250; J2405; J2543; J3010; J3490; J7030; J7614; J7644; Q9967

== ENCOUNTER 2023-10-09 13:15 | Emergency (ER) | payer MEDICARE, SELFPAY ==
[2023-10-09 13:18] VITALS: BMI 32.0
--- NOTE | 2023-10-09 13:21 | XRR_ITS ---
PROCEDURE INFORMATION: Exam: XR Chest Exam date and time: 10/09/2023 1:31 PM Age: 78 years old Clinical indication: Shortness of breath; Patient HX: Bradycardia; SOB; No cardiac HX TECHNIQUE: Imaging protocol: Radiologic exam of the chest. Views: 1 view. COMPARISON: CT chest con [id number] 10/01/2023 10:21 PM FINDINGS: Lungs: Interval decrease in pulmonary vascular congestion and improved aeration of the lungs. Residual right mid lung zone scar versus atelectasis and mild mid right lung zone coarsened reticular markings. Pleural spaces: No pleural effusion. Heart/Mediastinum: Mitral valvular calcifications again noted as seen on prior CT. Bones/joints: No significant pathology. XR/XR chest 1V portable [id number] IMPRESSION: No acute pathology. Interval improvement in pulmonary abnormalities seen on prior exam.
[2023-10-09 13:22] VITALS: BP 115/63; PULSE 42; RESP 16; TEMP 36.7; O2SAT 95
--- NOTE | 2023-10-09 13:22 | ECG_ITS ---
[facility] Test Date: 2023-10-09 Pat Name: Chela Rodriguez Department: Room: Gender: Female Transition Social Worker: : 1945 Requested By: Charles Keyes Order Number: [id number] Nessa MD: Cristo Chan M.D. Measurements Intervals Hartman Rate: 43 P: 57 CT: 248 QRS: 35 QRSD: 96 T: 160 QT: 479 QTc: 406 Interpretive Statements SINUS BRADYCARDIA WITH FIRST DEGREE AV BLOCK SEPTAL MYOCARDIAL INFARCTION , AGE INDETERMINATE Compared to ECG 10/03/2023 17:50:46 First degree AV block now present Atrial fibrillation no longer present Myocardial infarct finding still present Electronically Signed On 10-10-2023 8:38:04 RN BARIATRIC by Cristo Chan M.D. [email or web address]
--- NOTE | 2023-10-09 13:33 | ED_ITS ---
HPI - Arrhythmia/Palpitations 2 General: Chief Complaint: Arrhythmia/Palpitations Stated Complaint: BRADYCARDIA Time Seen by Provider: 10/09/23 13:17 Source: EMS Mode of arrival: EMS Limitations: no limitations History of Present Illness: 78-year-old female with multiple medical issues had been admitted recently she had had an NSTEMI had a stent placed change her meds she is on amiodarone along with metoprolol and had a hard time controlling her A-fib when she is here last she states that over the last 2 days she has had some bradycardia especially after taking her metoprolol her heart rate was in the 40s today it is 42 here. She denies any chest pain denies any weakness has no other symptoms but was concerned with her heart rate. Associated symptoms: Deny nausea or vomiting Review of Systems 2 Const: Denies: fever(s), chills, body aches or change in appetite ENMT: Denies: throat pain or dental pain Card: Denies: chest pain Resp: Denies: dyspnea GI: Denies: abdominal pain, nausea, vomiting or diarrhea Musc: Denies: neck pain or back pain Skin/Breast: Denies: rash Neuro: Denies: headache(s) PFSH ED 2 PFSH: Medical History Latent tuberculosis Completed treatment in 2020 Diabetes mellitus type 2, controlled Shingles Immunization counseling Latent tuberculosis by blood test Tenosynovitis of ankle Psoriatic arthritis High risk medication use Peroneal tendinitis of both lower legs Osteoarthritis Rotator cuff arthropathy of right shoulder Psoriasis Surgical History History of eye surgery Removal of scar tissue History of tonsillectomy History of appendectomy History of tubal ligation History of cholecystectomy H/O: hysterectomy Family History Mother Diabetes Hypertension Heart disease Brother Hypertension Sister Hypertension Grandmother Stroke Other Cancer Social History Smoking and tobacco/nicotine status: never used tobacco/nicotine Alcohol intake: never Substance/Drug Use: never Physical Exam 2 Const: COMMON NORMALS: no acute distress, patient oriented x3 and healthy appearing HENMT: COMMON NORMALS: normocephalic and atraumatic HEAD & SCALP: n ormocephalic and atraumatic Neck/C-Spine: COMMON NORMALS: full ROM and supple Chest: COMMONS NORMALS: normal inspection of the chest and normal palpation of entire chest wall Resp: COMMON NORMALS: normal respiratory effort, No retractions, No use of accessory muscles and clear to auscultation bilaterally AUSCULTATION: clear to auscultation bilaterally Cardio: COMMON NORMALS: regular rhythm and No murmurs present (Cardio) R ATE: bradycardic RHYTHM: regular rhythm Extremity: COMMON NORMALS: normal to inspection and full ROM Neuro: COMMON NORMALS: patient oriented x3, moves all extremities and no focal motor deficits Psych: COMMON NORMALS: mental status grossly normal, Normal thought process present and cooperative THOUGHT PROCESS: Normal thought process present Skin: COMMON NORMALS: no rashes or lesions noted and no wounds GENERAL SKIN EXAM: no rashes or lesions noted Course 2 Vital Signs: Vital signs: Vital Signs Temperature 98.1 F 10/09/23 13:22 Pulse Rate 44 L 10/09/23 14:31 Respiratory Rate 18 10/09/23 13:55 Blood Pressure 121/62 10/09/23 14:31 Pulse Oximetry 96 10/09/23 14:31 Oxygen Delivery Me thod Room Air 10/09/23 14:31 MDM - Arrhythmia/Palpitations Medical Decision Making Patient presents here with bradycardia she is asymptomatic blood work here is unchanged I did speak to irrigation tax assessor collector Dr. Rincon will cut her amiodarone down to just 100 mg in the morning have her hold her tonight dose tonight of the amiodarone and the metoprolol and change her metoprolol to 25 mg twice daily I did explain this to the patient she is follow-up with her irrigation tax assessor collector return if worsening she understands agrees to plan Medical Records I reviewed the patient's medical records. Lab Data I reviewed the patient's lab results. 10/09/23 13:45 10/09/23 14:20 Radiology Impressions Chest X-Ray 10/09/23 13:21 IMPRESSION: No acute pathology. Interval improvement in pulmonary abnormalities seen on prior exam. Laboratory Results WBC 10.51 10^3/uL (3.29-11.43) 10/09/23 13:45 RBC 3.87 10^6/uL (3.85-5.65) 10/09/23 13:45 Hgb 12.30 g/dL (11.27-16.99) 10/09/23 13:45 Hct 35.4 % (36-47) L 10/09/23 13:45 MCV 91.5 fl (85-98) 10/09/23 13:45 MCH 31.8 pg (27-33) 10/09/23 13:45 MCHC 34.7 g/dL (30-55) 10/09/23 13:45 RDW 13.9 % (12.1-15.1) 10/09/23 13:45 Plt Count 366 10^3/cmm (157-399) 10/09/23 13:45 MPV 11.2 fL (7.4-10.4) H 10/09/23 13:45 Neut % (Auto) 77.5 % 10/09/23 13:45 Lymph % (Auto) 9.2 % 10/09/23 13:45 [place] % (Auto) 9.6 % 10/09/23 13:45 Eos % (Auto) 1.9 % 10/09/23 13:45 Baso % (Auto) 0.2 % 10/09/23 13:45 Neut # (Auto) 8.14 10^3/uL (1.8-7.7) H 10/09/23 13:45 Lymph # (Auto) 1.0 10^3/uL (0.8-4.8) 10/09/23 13:45 [place] # (Auto) 1.0 10^3/uL (0.2-0.9) H 10/09/23 13:45 Eos # (Auto) 0.2 10^3/uL (0.0-0.8) 10/09/23 13:45 Baso # (Auto) 0.0 10^3/uL (0.0-0.1) 10/09/23 13:45 Nucleated RBC % (auto) 0.2 % 10/09/23 13:45 Nucleated RBCs # 0.0 /100WBC 10/09/23 13:45 Sodium 130 mmol/L (136-145) L 10/09/23 14:20 Potassium 3.3 mmol/L (3.5-5.1) L 10/09/23 14:20 Chloride 91 mmol/L (98-107) L 10/09/23 14:20 Carbon Dioxide 24 mmol/L (22-29) 10/09/23 14:20 Anion Gap 18.3 (5-19) 10/09/23 14:20 BUN 30 mg/dL (8-23) H 10/09/23 14:20 Creatinine 1.3 mg/dL (0.5-0.9) H 10/09/23 14:20 GFR Calculation Not Reportable 10/09/23 14:20 Glucose 227 mg/dL (65-115) H 10/09/23 14:20 Calculated Osmolality 283 mOsm/kg (285-295) L 10/09/23 14:20 Calcium 9.4 mg/dL (8.5-10.5) 10/09/23 14:20 Magnesium 2.6 mg/dL (1.7-2.3) H 10/09/23 14:20 Total Bilirubin 0.5 mg/dL (0.15-1.2) 10/09/23 14:20 AST 19 U/L (0-32) 10/09/23 14:20 ALT 15 U/L (0-33) 10/09/23 14:20 Alkaline Phosphatase 79 U/L (35-105) 10/09/23 14:20 Total Protein 6.9 g/dL (6.6-8.7) 10/09/23 14:20 Albumin 3.6 g/dL (3.5-5.2) 10/09/23 14:20 Globulin 3.3 g/dL (1.3-4.6) 10/09/23 14:20 All radiology interpretation(s) finalized by discharge Discharge Plan Discharge Patient Disposition: Home Clinical Impression: Bradycardia Condition: Stable Prescriptions: Changed Pacerone 200 mg Tablet 400 mg PO DAILY Qty: 180 0RF metoprolol tartrate 50 mg Tablet 25 mg PO BID@0900,2100 Qty: 180 0RF No Action hydrocodone-acetaminophen 7.5-325 mg tablet 1 - 2 tab PO Q6H PRN (Reason: Pain) cetirizine [Zyrtec] 10 mg tablet 5 mg PO DAILY (DME) Monoject TB Safety Syringe 1 mL 25 gauge x 5/8 syringe See Rx Instructions .ROUTE .MEDSUPPLY Qty: 50 1RF Rx Instructions: As directed prednisone 10 mg tablet See Rx Instructions PO .COMPLEX PRN (Reason: joint pain) Qty: 30 1RF Rx Instructions: take 1 tab daily for 3-7 days prn joint pain flare PO PRN; metformin 500 mg tablet extended release 24 hr 1,000 mg PO QAM Hold Instructions: Resume on 10/13/23. furosemide 40 mg tablet 40 mg PO BID Hold Instructions: Resume on 10/13/23. spironolactone 25 mg tablet 25 mg PO DAILY Hold Instructions: Resume on 10/13/23. potassium chloride 20 mEq tablet,ER particles/crystals 20 meq PO DAILY methocarbamol 750 mg tablet 750 mg PO TID PRN (Reason: Pain) gabapentin 300 mg capsule 600 mg PO TID aspirin 81 mg Tablet,Delayed Release (Dr/Ec) 81 mg PO DAILY Qty: 90 0RF loperamide 2 mg Capsule 2 mg PO QID PRN (Reason: Diarrhea) Qty: 30 1RF isosorbide mononitrate 30 mg Tablet Extended Release 24 Hr 30 mg PO BID Qty: 180 0RF clopidogrel 75 mg Tablet 75 mg PO DAILY Qty: 90 0RF amlodipine 10 mg Tablet 10 mg PO DAILY Qty: 90 0RF nitroglycerin 0.4 mg Tablet, Sublingual 0.4 mg sublingual Q5M PRN (Reason: Chest Pain) Qty: 25 0RF Eliquis 5 mg tablet 5 mg PO BID Qty: 180 0RF Discharge Orders: Discharge ED (Routine); Ordered 10/09/23 Ordered By: Charles Keyes Referrals: Cristo Chan M.D [Physician] - 1-3 days Devon Walton MD [Primary Care Provider] - Discharge Diet: Advance as tolerated Discharge Activity: Resume usual activity Patient Instructions: Bradycardia (ED) Coding Level of Care Code ED Complaint Coordinator for Jan Tran
[2023-10-09 13:55] VITALS: BP 110/59; RESP 18; O2SAT 95
[2023-10-09 13:55] LABS: Basophils % 0.2 %; Eosinophils # 0.2 10^3/uL (0.0-0.8); Eosinophils % 1.9 %; Hematocrit 35.4 % (36-47); Lymphocytes % 9.2 %; Mean Corpuscular HGB Conc 34.7 g/dL (30-55); Mean Corpuscular Hemoglobin 31.8 pg (27-33); Mean Corpuscular Volume 91.5 fl (85-98); Mean Platelet Volume 11.2 fL (7.4-10.4); Monocytes % 9.6 %; Neutrophils # 8.14 10^3/uL (1.8-7.7); Neutrophils % 77.5 %; Nucleated Red Blood Cells % 0.2 %; Platelet Count 366 10^3/cmm (157-399); Red Blood Count 3.87 10^6/uL (3.85-5.65); Red Cell Distribution Width 13.9 % (12.1-15.1); White Blood Count 10.51 10^3/uL (3.29-11.43)
[2023-10-09 14:31] VITALS: BP 121/62; PULSE 44; O2SAT 96
[2023-10-09 14:54] LABS: Alanine Aminotransferase 15 U/L (0-33); Albumin Level 3.6 g/dL (3.5-5.2); Alkaline Phosphatase 79 U/L (35-105); Anion Gap 18.3 (5-19); Aspartate Amino Transferase 19 U/L (0-32); Blood Urea Nitrogen 30 mg/dL (8-23); Calcium 9.4 mg/dL (8.5-10.5); Carbon Dioxide 24 mmol/L (22-29); Chloride 91 mmol/L (98-107); Globulin 3.3 g/dL (1.3-4.6); Glucose 227 mg/dL (65-115); Magnesium 2.6 mg/dL (1.7-2.3); Osmolality Calculated 283 mOsm/kg (285-295); Potassium 3.3 mmol/L (3.5-5.1); Sodium 130 mmol/L (136-145); Total Bilirubin 0.5 mg/dL (0.15-1.2); Total Protein 6.9 g/dL (6.6-8.7)
== END 2023-10-09 15:23 | disposition home or self-care (01) ==
PROVIDERS: Emergency Provider Emergency Medicine; PCP Family Medicine
DX: R00.1 Bradycardia, unspecified (principal); Z79.01 Long term (current) use of anticoagulants; Z79.02 Long term (current) use of antithrombotics/antiplatelets; Z79.82 Long term (current) use of aspirin; Z79.84 Long term (current) use of oral hypoglycemic drugs; E11.9 Type 2 diabetes mellitus without complications
CPT/HCPCS: 36415; 71045; 80053; 83735; 85025; 93005; 99285

== ENCOUNTER 2023-10-15 08:23 | Inpatient (IN) | payer MEDICARE, SELFPAY ==
[2023-10-15] VITALS (56 sets, daily range): BP systolic 121–163; BP diastolic 65–95; PULSE 57–77; RESP 13–26; TEMP 36.4–37.2; O2SAT 83–94; BMI 29.2; BMI 32.2
--- NOTE | 2023-10-15 08:35 | ECG_ITS ---
[facility] Test Date: 2023-10-15 Pat Name: Chela Rodriguez Department: Room: Gender: Female Tag Stringer: : 1945 Requested By: Dante Deleon Order Number: [id number] Nessa MD: Taqueria Russ M.D. Measurements Intervals Horatio Rate: 72 P: 0 WA: 0 QRS: 54 QRSD: 101 T: 177 QT: 547 QTc: 602 Interpretive Statements ATRIAL FIBRILLATION POSSIBLE ANTERIOR MYOCARDIAL INFARCTION , OF INDETERMINATE AGE [30 ms Q WAVE IN V3/V4, OR R < 0.2 mV IN V4] MODERATE T-WAVE ABNORMALITY, CONSIDER LATERAL ISCHEMIA [-0.1+ mV T-WAVE IN I/aVL/V5/V6] PROLONGED QT INTERVAL CRITICAL TEST RESULT Compared to ECG 10/13/2023 13:23:30 T-wave abnormality now present Possible ischemia now present Prolonged QT interval now present Sinus rhythm no longer present Myocardial infarct finding still present Electronically Signed On 10-15-2023 15:43:41 [employer] by Taqueria Russ M.D. [id number]
--- NOTE | 2023-10-15 08:35 | CTR_ITS ---
PROCEDURE INFORMATION: Exam: CT Abdomen And Pelvis With Contrast Exam date and time: 10/15/2023 9:19 AM Age: 78 years old Clinical indication: Abdominal pain. Colic. Prior cholecystectomy and section. Hematochezia. Abdominal pain. TECHNIQUE: Imaging protocol: Computed tomography of the abdomen and pelvis with contrast. Radiation optimization: All CT scans at this facility use at least one of these dose optimization techniques: automated exposure control; mA and/or kV adjustment per patient size (includes targeted exams where dose is matched to clinical indication); or iterative reconstruction. Contrast material: OMNI 350; Contrast volume: 100 ml; Contrast route: INTRAVENOUS (IV); COMPARISON: CT abdomen pelvis wo con [id number] 10/02/2023 9:54 AM RADIATION DOSE METRICS: Total DLP (mGy-cm): 779.24 FINDINGS: Pleural spaces: Small bilateral pleural effusions. Probable bibasilar atelectasis. Dense calcification in the mitral annulus. Heart: No pericardial effusion. Coronary arteries: Coronary arterial calcifications are seen. Diaphragm: No hiatal hernia. Liver: The dome of the liver is not included on the current study. The liver is enlarged measuring at least 17.9 cm. There is possible hepatic cirrhosis. Gallbladder and bile ducts: The gallbladder has been removed. Mild intra and extrahepatic biliary ductal dilatation is seen. This is common following cholecystectomy. Pancreas: The pancreas is unremarkable. Spleen: The spleen is unremarkable. Adrenal glands: The adrenal glands are unremarkable. 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 The right kidney is poorly perfused and hypoenhances relative to the left kidney. Indeterminate left renal lesion measuring 1.4 cm. Stomach and bowel: The stomach and small bowel are unremarkable. The colon is unremarkable. Appendix: The appendix is unremarkable. Intraperitoneal space: No free intraperitoneal air is seen. There is mild ascites. Mild ascites. 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 No abdominal aortic aneurysm. Lymph nodes: A periportal lymph node measures 1.2 x 2.6 cm. Urinary bladder: The bladder is partially decompressed. Reproductive: Status post hysterectomy. Cystic lesion in the left adnexa measuring 1.5 x 2.1 cm. Bones/joints: No acute fracture is seen. Soft tissues: Small fat containing umbilical and epigastric hernias. CT/CT abdomen pelvis w con* [id number] IMPRESSION: 1. 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 The right kidney is poorly perfused and hypoenhances relative to the left kidney. 2. 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 3. Indeterminate left renal lesion. Recommend ultrasound to exclude a solid renal mass. 4. Cystic lesion in the left adnexa. Ovarian cysts are abnormal in postmenopausal patients. Recommend nonemergent pelvic ultrasound. 5. Hepatomegaly with periportal lymphadenopathy and possible hepatic cirrhosis. There is mild ascites. 6. Small bilateral pleural effusions.
--- NOTE | 2023-10-15 08:35 | XRR_ITS ---
PROCEDURE INFORMATION: Exam: XR Chest Exam date and time: 10/15/2023 9:25 AM Age: 78 years old Clinical indication: Cough and dyspnea; Additional info: Dyspnea/cough TECHNIQUE: Imaging protocol: Radiologic exam of the chest. Views: 1 view. COMPARISON: CR (CHEST, ) 10/09/2023 1:31 PM FINDINGS: Lungs: Subsegmental atelectasis in the mid right chest. Probable atelectasis at the lung bases. Pleural spaces: Small bilateral pleural effusions are better seen on CT. No pneumothorax. Heart/Mediastinum: The cardiac silhouette is unchanged. No gross evidence of pneumomediastinum. Bones/joints: No gross fracture. Other findings: The patient is rotated on the current study. XR/XR chest 1V portable [id number] IMPRESSION: Small bilateral pleural effusions are better seen on CT.
[2023-10-15 08:45] LABS: Basophils # 0.1 10^3/uL (0.0-0.1); Basophils % 0.6 %; Eosinophils # 0.2 10^3/uL (0.0-0.8); Eosinophils % 2.8 %; Hematocrit 37.6 % (36-47); Lymphocytes # 0.8 10^3/uL (0.8-4.8); Lymphocytes % 10.2 %; Mean Corpuscular HGB Conc 33.2 g/dL (30-55); Mean Corpuscular Hemoglobin 31.3 pg (27-33); Mean Corpuscular Volume 94.2 fl (85-98); Mean Platelet Volume 11.1 fL (7.4-10.4); Monocytes # 0.7 10^3/uL (0.2-0.9); Neutrophils # 6.36 10^3/uL (1.8-7.7); Neutrophils % 77.4 %; Nucleated Red Blood Cells % 0 %; Platelet Count 304 10^3/cmm (157-399); Red Blood Count 3.99 10^6/uL (3.85-5.65); Red Cell Distribution Width 13.8 % (12.1-15.1); White Blood Count 8.22 10^3/uL (3.29-11.43)
[2023-10-15] MEDS: pantoprazole 40 mg SDV 80 MG IVP (08:55)
[2023-10-15] MEDS: ondansetron 2 mg/ML SDV 2 mL 4 MG IVP (08:55)
[2023-10-15 08:58] LABS: INR 1.33 (0.8-1.2)
[2023-10-15 08:59] LABS: Partial Thromboplastin Time 44.3 SECONDS (23.9-36.7)
--- NOTE | 2023-10-15 09:04 | ED_ITS ---
HPI - GI Bleed 2 General: Chief complaint: GI Bleed Stated complaint: GI BLEED Time Seen by Provider: 10/15/23 08:25 Source: patient Mode of arrival: EMS History of Present Illness: 78-year-old female presents emergency ro om with complaint of bright red blood per rectum that started 2 days ago. She did recently have a stent placed she is on both apixaban for A-fib and clopidogrel for her recent stent. She electively held the Eliquis but discontinued the clopidogrel. . She has had several bright red blood bowel movements passing some clots as well. She has not had any hematemesis or coffee-ground emesis denies any black tarry stools has some mild chest discomfort. MD complaint: gross hematochezia Pain Consistency: intermittent Severity: mild Relieving factors: none Exacerbating factors: none Associated symptoms: Denies abdominal pain, chills, easy bruising, epistaxis, fever(s), headache(s), malaise, nausea, other bleeding, poor appetite, rash, syncope, vomiting or weakness Treatments Prior to Arrival: none Review of Systems 2 Const: Denies: fever(s), chills or malaise ENMT: Denies: epistaxis Card: Denies: chest pain or syncope Resp: Denies: dyspnea GI: Denies: abdominal pain, nausea or vomiting : Denies: dysuria, urinary frequency or urinary urgency Musc: Denies: neck pain or back pain Skin/Breast: Denies: rash Neuro: Denies: headache(s) [place]/Lymph: Denies: easy bruising PFSH ED 2 PFSH: Medical History Coronary artery disease Latent tuberculosis Completed treatment in 2020 Diabetes mellitus type 2, controlled Shingles Immunization counseling Latent tuberculosis by blood test Tenosynovitis of ankle Psoriatic arthritis High risk medication use Peroneal tendinitis of both lower legs Osteoarthritis Rotator cuff arthropathy of right shoulder Psoriasis Surgical History History of eye surgery Removal of scar tissue History of tonsillectomy History of appendectomy History of tubal ligation History of cholecystectomy H/O: hysterectomy Family History Mother Diabetes Hypertension Heart disease Brother Hypertension Sister Hypertension Grandmother Stroke Other Cancer Social History Smoking and tobacco/nicotine status: never used tobacco/nicotine Alcohol intake: never Substance/Drug Use: never Physical Exam 2 Const: COMMON NORMALS: no acute distress GENERAL APPEARANCE: cooperative and comfortable ORIENTATION/CONSCIOUSNESS: Yes awake, Yes oriented to person, Yes oriented to place and Yes oriented to time HENMT: COMMON NORMALS: normocephalic, atraumatic and hearing grossly normal bilaterally HEAD & SCALP: normocephalic and atraumatic Resp: COMMON NORMALS: normal respiratory effort, No retractions, No use of accessory muscles and clear to auscultation bilaterally AUSCULTATION: clear to auscultation bilaterally Cardio: COMMON NORMALS: regular rate, regular rhythm and No murmurs present (Cardio) RATE: regular rate RHYTHM: regular rhythm GI: COMMON NORMALS: Soft to palpation and No hepatosplenomegaly present A USCULTATION: Yes normoactive bowel sounds PALPATION: Yes Soft to palpation, No Tenderness to palpation present (GI), No Guarding due to palpation present (GI) and Yes No hepatosplenomegaly present Extremity: COMMON NORMALS: normal to inspection, capillary refill normal, no clubbing, cyanosis or edema, no calf tenderness and no pedal edema Neuro: SENSORIUM/ORIENTATION: Yes oriented to person, Yes oriented to place and Yes oriented to time Skin: COMMON NORMALS: no rashes or lesions noted GENERAL SKIN EXAM: no rashes or lesions noted Course 2 Vital Signs: Vital signs: Vital Signs Temperature 99.0 F 10/15/23 08:25 Pulse Rate 66 10/15/23 08:25 Respiratory Rate 17 10/15/23 08:25 Blood Pressure 152/79 10/15/23 08:25 Pulse Oximetry 94 10/15/23 08:25 Oxygen Delivery Me thod Room Air 10/15/23 08:25 MDM - GI Bleed Medical Decision Making Acute lower GI bleed possible diverticular. 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 Tracie Becker discussed with Dr. Jones. Will admit started on Cipro and Flagyl monitor hemoglobins. Patient will need further workup on an outpatient basis for these incidental findings. Additionally she will need to continue on her Plavix because of her recent stent which makes managing her GI bleed potentially complicated. Her INR is still 1.33 she last took her Eliquis approximately 36 hours ago Medical Records I reviewed the patient's medical records. Lab Data I reviewed the patient's lab results. 10/15/23 08:02 10/15/23 09:02 Radiology Impressions Abdomen/Pelvis CT 10/15/23 08:35 IMPRESSION: 1. 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 The right kidney is poorly perfused and hypoenhances relative to the left kidney. 2. 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 3. Indeterminate left renal lesion. Recommend ultrasound to exclude a solid renal mass. 4. Cystic lesion in the left adnexa. Ovarian cysts are abnormal in postmenopausal patients. Recommend nonemergent pelvic ultrasound. 5. Hepatomegaly with periportal lymphadenopathy and possible hepatic cirrhosis. There is mild ascites. 6. Small bilateral pleural effusions. ADDENDUM: 10/15/23 1002 The appendix is not definitively seen. There is a small amount of dense material in the distal sigmoid colon and rectum that may represent blood. Findings discussed with DANTE VIVAS at 10/15/2023 9:59 AM DISTRIBUTOR OPERATOR. Chest X-Ray 10/15/23 08:35 IMPRESSION: Small bilateral pleural effusions are better seen on CT. Laboratory Results WBC 8.22 10^3/uL (3.29-11.43) 10/15/23 08:02 RBC 3.99 10^6/uL (3.85-5.65) 10/15/23 08:02 Hgb 12.50 g/dL (11.27-16.99) 10/15/23 08:02 Hct 37.6 % (36-47) 10/15/23 08:02 MCV 94.2 fl (85-98) 10/15/23 08:02 MCH 31.3 pg (27-33) 10/15/23 08:02 MCHC 33.2 g/dL (30-55) 10/15/23 08:02 RDW 13.8 % (12.1-15.1) 10/15/23 08:02 Plt Count 304 10^3/cmm (157-399) 10/15/23 08:02 MPV 11.1 fL (7.4-10.4) H 10/15/23 08:02 Neut % (Auto) 77.4 % 10/15/23 08:02 Lymph % (Auto) 10.2 % 10/15/23 08:02 [place] % (Auto) 8.0 % 10/15/23 08:02 Eos % (Auto) 2.8 % 10/15/23 08:02 Baso % (Auto) 0.6 % 10/15/23 08:02 Neut # (Auto) 6.36 10^3/uL (1.8-7.7) 10/15/23 08:02 Lymph # (Auto) 0.8 10^3/uL (0.8-4.8) 10/15/23 08:02 [place] # (Auto) 0.7 10^3/uL (0.2-0.9) 10/15/23 08:02 Eos # (Auto) 0.2 10^3/uL (0.0-0.8) 10/15/23 08:02 Baso # (Auto) 0.1 10^3/uL (0.0-0.1) 10/15/23 08:02 Nucleated RBC % (auto) 0 % 10/15/23 08:02 Nucleated RBCs # 0.0 /100WBC 10/15/23 08:02 PT 17.00 SECONDS (12.1-14.9) H 10/15/23 08:02 INR 1.33 (0.8-1.2) H 10/15/23 08:02 APTT 44.3 SECONDS (23.9-36.7) H 10/15/23 08:02 Sodium 136 mmol/L (136-145) 10/15/23 09:02 Potassium 3.6 mmol/L (3.5-5.1) 10/15/23 09:02 Chloride 95 mmol/L (98-107) L 10/15/23 09:02 Carbon Dioxide 26 mmol/L (22-29) 10/15/23 09:02 Anion Gap 18.6 (5-19) 10/15/23 09:02 BUN 10 mg/dL (8-23) 10/15/23 09:02 Creatinine 1.0 mg/dL (0.5-0.9) H 10/15/23 09:02 GFR Calculation Not Reportable 10/15/23 09:02 Glucose 257 mg/dL (65-115) H 10/15/23 09:02 Calculated Osmolality 290 mOsm/kg (285-295) 10/15/23 09:02 Lactic Acid 2.9 mmol/L (0.5-2.2) H 10/15/23 09:02 Calcium 8.6 mg/dL (8.5-10.5) 10/15/23 09:02 Total Bilirubin 1.0 mg/dL (0.15-1.2) 10/15/23 09:02 AST 13 U/L (0-32) 10/15/23 09:02 ALT 12 U/L (0-33) 10/15/23 09:02 Alkaline Phosphatase 67 U/L (35-105) 10/15/23 09:02 Total Protein 6.7 g/dL (6.6-8.7) 10/15/23 09:02 Albumin 3.5 g/dL (3.5-5.2) 10/15/23 09:02 Globulin 3.2 g/dL (1.3-4.6) 10/15/23 09:02 Urine Color Yellow (Yellow) 10/15/23 08:55 Urine Appearance Clear (CLEAR) 10/15/23 08:55 Urine pH 5 (5-7) 10/15/23 08:55 Ur Specific [place] 1.010 (1.005-1.030) 10/15/23 08:55 Urine Protein 1+ (Negative) H 10/15/23 08:55 Urine Glucose (UA) 4+ (Normal) H 10/15/23 08:55 Urine Ketones Negative (Negative) 10/15/23 08:55 Urine Blood 2+ (Negative) H 10/15/23 08:55 Urine Nitrate Negative (Negative) 10/15/23 08:55 Urine Bilirubin Neg (Negative) 10/15/23 08:55 Urine Urobilinogen Norm mg/dL (Negative) 10/15/23 08:55 Ur Leukocyte Esterase Negative (Negative) 10/15/23 08:55 Urine RBC 0-4 /hpf (0-2) H 10/15/23 08:55 Urine WBC 5-10 /hpf (0-5) H 10/15/23 08:55 Ur Squamous Epith Cells None /hpf (0-5) 02/10/24 08:55 Amorphous Sediment Not Reportable 10/15/23 08:55 Urine Bacteria Trace /hpf (NONE) 10/15/23 08:55 Blood Type O Positive 10/15/23 09:02 Rho(D) Type Rh positive 10/15/23 09:02 All radiology interpretation(s) finalized by discharge Discharge Plan Discharge Condition: Stable Prescriptions: No Action hydrocodone-acetaminophen 7.5-325 mg tablet 1 - 2 tab PO Q6H PRN (Reason: Pain) cetirizine [Zyrtec] 10 mg tablet 5 mg PO DAILY metoprolol tartrate 25 mg tablet 12.5 mg PO BID Qty: 30 1RF (DME) Monoject TB Safety Syringe 1 mL 25 gauge x 5/8 syringe See Rx Instructions .ROUTE .MEDSUPPLY Qty: 50 1RF Rx Instructions: As directed prednisone 10 mg tablet See Rx Instructions PO .COMPLEX PRN (Reason: joint pain) Qty: 30 1RF Rx Instructions: take 1 tab daily for 3-7 days prn joint pain flare PO PRN; Pacerone 200 mg tablet 100 mg PO DAILY metformin 500 mg tablet extended release 24 hr 1,000 mg PO QAM Hold Instructions: Resume on 10/13/23. furosemide 40 mg tablet 40 mg PO BID Hold Instructions: Resume on 10/13/23. spironolactone 25 mg tablet 25 mg PO DAILY Hold Instructions: Resume on 10/13/23. potassium chloride 20 mEq tablet,ER particles/crystals 20 meq PO DAILY gabapentin 300 mg capsule 600 mg PO TID aspirin 81 mg Tablet,Delayed Release (Dr/Ec) 81 mg PO DAILY Qty: 90 0RF loperamide 2 mg Capsule 2 mg PO QID PRN (Reason: Diarrhea) Qty: 30 1RF isosorbide mononitrate 30 mg Tablet Extended Release 24 Hr 30 mg PO BID Qty: 180 0RF clopidogrel 75 mg Tablet 75 mg PO DAILY Qty: 90 0RF amlodipine 10 mg Tablet 10 mg PO DAILY Qty: 90 0RF nitroglycerin 0.4 mg Tablet, Sublingual 0.4 mg sublingual Q5M PRN (Reason: Chest Pain) Qty: 25 0RF Eliquis 5 mg tablet 5 mg PO BID Qty: 180 0RF Referrals: Devon Walton MD [Primary Care Provider] - Coding Level of Care Code ED Disaster Response Director for Chg Fwd
[2023-10-15 09:09] LABS: Urine Appearance Clear (CLEAR); Urine Color Yellow (Yellow); pH Urine 5 (5-7)
[2023-10-15 09:10] LABS: Add Urine Microscopic? YES; Bilirubin Urine Neg (Negative); Blood Urine 2+ (Negative); Glucose Urine UA 4+ (Normal); Ketones Urine Negative (Negative); Leukocyte Esterase Urine Negative (Negative); Nitrate Urine Negative (Negative); Protein Urine 1+ (Negative); Urobilinogen Urine Norm (Negative)
[2023-10-15 09:14] LABS: Add Urine Culture? No; Bacteria Urine TRACE /hpf; RBC Urine 0-4 /hpf (0-2)
[2023-10-15] MEDS: iohexol 350 mg/mL 500 mL Btl (per mL) IV (09:22)
--- NOTE | 2023-10-15 09:30 | PC.PHAR ---
[facility] CALLED AND REDUCED AMIODARONE TO 100 MG DAILY FROM 400 MG DAILY. PT ALSO TAKES CLOPIDOGREL 75 MG, ELIQUIS 5 MG, AND ASA 81 MG.
[2023-10-15 09:47] LABS: Alanine Aminotransferase 12 U/L (0-33); Albumin Level 3.5 g/dL (3.5-5.2); Alkaline Phosphatase 67 U/L (35-105); Anion Gap 18.6 (5-19); Aspartate Amino Transferase 13 U/L (0-32); Blood Urea Nitrogen 10 mg/dL (8-23); Calcium 8.6 mg/dL (8.5-10.5); Carbon Dioxide 26 mmol/L (22-29); Chloride 95 mmol/L (98-107); Globulin 3.2 g/dL (1.3-4.6); Glucose 257 mg/dL (65-115); Osmolality Calculated 290 mOsm/kg (285-295); Potassium 3.6 mmol/L (3.5-5.1); Sodium 136 mmol/L (136-145); Total Protein 6.7 g/dL (6.6-8.7)
[2023-10-15 09:48] LABS: Creatinine Clr Calc Pharmacy 43.9482
[2023-10-15 10:16] LABS: Lactic Sepsis W/Reflex 2.9 mmol/L (0.5-2.2)
--- NOTE | 2023-10-15 11:18 | PM.HP ---
Providers/Chief Complaint Primary Care Provider: Devon Walton MD Chief Complaint: GI BLEED History of Present Illness Chela Rodriguez is a 78 year old female who recently had stent placed currently on Eliquis and Plavix, presented with chief complaint of bright bleed per rectum. Patient stating that she started noticing bleeding on which has gotten worse that brought her to the hospital she has not noticed any chest pain shortness of breath confusion or lethargy no recent syncope. She stopped taking Eliquis last night. She is still taking Plavix. No active chest pain. Workup in the ER revealed normal hemoglobin, diverticulosis/renal artery stenosis without significant worsening of kidney function no sign administering ischemia hepatic cirrhosis mild ascites, SMA severe narrowing, left renal lesion, small amount of dense material distal sigmoid colon consistent with diverticulitis Review of Systems Const: Denies: fever(s) Eyes: Denies: change in vision ENMT: Denies: throat pain Card: Denies: chest pain Resp: Denies: dyspnea GI: Reports: nausea and hematochezia Medications/Allergies Home Medications Medication Instructions Recorded Confirmed Last Taken Type cetirizine 10 mg tablet (Zyrtec) 5 mg PO DAILY 09/04/19 10/15/23 10/14/23 History hydrocodone 7.5 mg-acetaminophen 1 - 2 tab PO Q6H PRN Pain 09/04/19 10/15/23 10/14/23 History 325 mg tablet syringe with needle 1 mL 25 gauge #50 ea 12/29/22 10/15/23 Unknown Rx x 5/8 (Monoject TB Safety Syringe) prednisone 10 mg tablet See Rx Instructions PO .COMPLEX 08/09/23 10/15/23 Unknown Rx PRN joint pain #30 tabs furosemide 40 mg tablet 40 mg PO BID 10/01/23 10/15/23 10/14/23 History gabapentin 300 mg capsule 600 mg PO TID 10/01/23 10/15/23 10/14/23 History metformin 500 mg tablet,extended 1,000 mg PO QAM 10/01/23 10/15/23 10/14/23 History release 24 hr potassium chloride 20 mEq 20 meq PO DAILY 10/01/23 10/15/23 10/14/23 History tablet,extended release(part/cryst) spironolactone 25 mg tablet 25 mg PO DAILY 01/10/15/23 10/14/23 History amlodipine 10 mg tablet 10 mg PO DAILY #90 tabs 10/07/23 10/15/23 10/14/23 Rx apixaban 5 mg tablet (Eliquis) 5 mg PO BID #180 tabs 10/07/23 10/15/23 10/14/23 Rx aspirin 81 mg tablet,delayed 81 mg PO DAILY #90 tabs 10/07/23 10/15/23 10/14/23 Rx release clopidogrel 75 mg tablet 75 mg PO DAILY #90 tabs 10/07/23 10/15/23 10/14/23 Rx isosorbide mononitrate 30 mg 30 mg PO BID #180 tabs 10/07/23 10/15/23 10/14/23 Rx tablet,extended release 24 hr loperamide 2 mg capsule 2 mg PO QID PRN Diarrhea #30 caps 10/07/23 10/15/23 Unknown Rx nitroglycerin 0.4 mg sublingual 0.4 mg sublingual Q5M PRN Chest 10/07/23 10/15/23 Unknown Rx tablet Pain #25 tabs metoprolol tartrate 25 mg tablet 12.5 mg (1/2 x 25 mg) PO BID #30 10/13/23 10/15/23 10/14/23 Rx tabs amiodarone 200 mg tablet (Pacerone) 100 mg PO DAILY 10/15/23 10/15/23 10/14/23 History Allergies Allergy/AdvReac Type Severity Reaction Status Date / Time RON Inhibitors Allergy Angioedema Verified 10/13/23 12:53 diltiazem [From Cardizem] Allergy unknown Verified 10/13/23 12:53 lovastatin Allergy bone and Verified 10/13/23 12:53 muscle pain meperidine [From Demerol] Allergy itching Verified 10/13/23 12:53 methadone Allergy unknown Verified 10/13/23 12:53 pentazocine [From Talwin] Allergy nausea, Verified 10/13/23 12:53 vomiting alendronate sodium AdvReac Intermediate swelling Verified 10/13/23 12:53 [From Fosamax] codeine AdvReac Intermediate headache Verified 10/13/23 12:53 erythromycin base AdvReac Intermediate Unknown Verified 10/13/23 12:53 losartan AdvReac Intermediate dizzy Verified 10/13/23 12:53 methotrexate AdvReac Intermediate nausea/ Verified 10/13/23 12:53 diarrhea pravastatin [From Pravachol] AdvReac Intermediate cramps Verified 10/13/23 12:53 PFSH Acute PFSH: Medical History Coronary artery disease Latent tuberculosis Completed treatment in 2020 Diabetes mellitus type 2, controlled Shingles Immunization counseling Latent tuberculosis by blood test Tenosynovitis of ankle Psoriatic arthritis High risk medication use Peroneal tendinitis of both lower legs Osteoarthritis Rotator cuff arthropathy of right shoulder Psoriasis Surgical History History of eye surgery Removal of scar tissue History of tonsillectomy History of appendectomy History of tubal ligation History of cholecystectomy H/O: hysterectomy Family History Mother Diabetes Hypertension Heart disease Brother Hypertension Sister Hypertension Grandmother Stroke Other Cancer Social History Smoking and tobacco/nicotine status: never used tobacco/nicotine Alcohol intake: never Substance/Drug Use: never Vitals/I&O/Wt Last Vital Signs Temp 99.0 F 10/15/23 08:25 Pulse 66 10/15/23 08:25 Resp 17 10/15/23 08:25 BP 152/79 10/15/23 08:25 Pulse Ox 94 10/15/23 08:25 O2 Del Method Room Air 10/15/23 08:25 Weight last 48 hrs Weight 72.575 kg Physical Exam Narrative: Pleasant cooperative GCS 15 Nonfocal neuroexam Tolerated diet S1, S2 variable Awake and alert nonfocal neuroexam Abdomen soft Data 10/15/23 08:02 10/15/23 09:02 A&P Assessment and plan (1) Hepatomegaly: (2) Mesenteric ischemia: (3) Diverticulosis: (4) Diabetes mellitus type 2, controlled: Qualifiers: Diabetes mellitus instrument and control service person insulin use: without instrument and control service person use Diabetes mellitus complication status: without complication Qualified Code(s): E11.9 - Type 2 diabetes mellitus without complications (5) Sleep related hypoxia: (6) Psoriasis: (7) Paroxysmal atrial fibrillation with RVR: Plan Mesenteric ischemia Bright bleed per rectum could be related to mesenteric ischemia versus diverticulosis Currently hemoglobin stable I will continue IV fluid hydration along Plavix however will switch Eliquis to therapeutic Lovenox subcutaneous dose A-fib without RVR Continue metoprolol Renal lesion hepatomegaly ascites ROSARIO? Check hepatic panel, AFP panel and will request renal ultrasound Complete occlusion proximal right renal artery Left renal lesion Recent stent placement by Dr. Vargas continue Plavix Full code GI soft diet In case of recurrent hematochezia will make her n.p.o. I do suspect some postprandial pain For hyperglycemia continue moderate dose sliding scale Attestations Medical Necessity Statement*: Continue medical management Diagnoses Hepatomegaly R16.0 Mesenteric ischemia K55.9 Diverticulosis K57.90 Controlled type 2 diabetes mellitus without complication, without long-term current use of insulin E11.9 Diabetes mellitus instrument and control service person insulin use: without instrument and control service person use Diabetes mellitus complication status: without complication Sleep related hypoxia G47.34 Psoriasis L40.9 Paroxysmal atrial fibrillation with RVR I48.0
[2023-10-15 11:51] LABS: Reflex Lactate Order REFLEX LACTIC ORDERD
[2023-10-15 12:23] LABS: Lactic Acid level (Lactate) 1.6 mmol/L (0.5-2.2)
[2023-10-15] MEDS: HYDROcodone-acetaminophen 7.5-325 mg Tablet 1 TAB PO (13:41)
[2023-10-15] MEDS: sodium chloride 0.9% 1,000 ML 75 ML IV (13:42)
[2023-10-15 13:43] LABS: Estmated Average Glucose 203; Hemoglobin A1C 8.7 % (4.0-6.0)
[2023-10-15] MEDS: ciprofloxacin 400 MG/200 ML PREMIX 200 MG IV (13:46)
[2023-10-15 13:53] LABS: Thyroid Stimulating Hormone 1.11 uIU/mL (0.27-4.20)
--- OUTSIDE RECORDS SUMMARY | 2023-10-15 13:56 | XMS_ITS | Patient Health Record ---
Author Name Unknown Organization [facility] Address [address] [place], [place] [id number] Care Team Providers Care Waiter/Waitress Second Class Name Role Phone Anton KHAN, Devon Primary Care Provider Unavail able Keyshawn KHAN, Geovani Unavailable [phone] Mg NEGRONP, Emilee Unavailable [phone] ALLERGIES Allergen (clinical drug ingredient) Drug/Non Drug Allergy documented on EMR Reaction Allergy Type Onset Date Status yazmin inhibitors (uncoded) angio edema Allergy Active beta blockers (uncoded) Unknown Allergy Active statins (uncoded) Unknown Allergy Ac tive meperidine Demerol Unknown Drug Allergy Active atenolol atenolol angio edema Drug Allergy Activ e codeine codeine Unknown Drug Allergy Active labetalol labetalol Unknown Drug Allergy Active meperidine meperidine Unknown Drug Allergy Activ e propranolol propranolol Unknown Drug Allergy Act donis erythromycin Unknown Drug Allergy Acti ve methadone methadone Unknown Drug Allergy Active acebutolol acebutolol angio edema Drug Allergy Act donis timolol timolol angio edema Drug Allergy Activ e betaxolol betaxolol angio edema Drug Allergy Activ e esmolol esmolol angio edema Drug Allergy Activ e sotalol sotalol angio edema Drug Allergy Activ e bisoprolol bisoprolol angio edema Drug Allergy Act donis carvedilol carvedilol angio edema Drug Allergy Act donis Levobunolol angio edema Drug Allergy Act donis duloxetine Cymbalta excessive drowsiness Drug Allergy Active Talwin Unknown Drug Allergy Active RESULTS Component Value Reference Range Notes Urine tox screen / MS if ind icated Reviewed date:01/25/2023 02:00:32 PM Interpretation:Consistent Performing Lab: Notes/Report: Consistent REASON FOR REFERRAL No Information MEDICATIONS Medication SIG (Take, Route, Frequency, Duration) Notes Start Date End Date Status Vitamin B-50 Vitamin B Complex 1 tab orally once a day Active isoniazid 300 mg 1 tab orally once a day Active Vitamin B6 50 mg 1 tab(s) orally once a day for 30 day(s) Active aspirin 325 mg 1 tab orally once a day Active moxifloxacin ophthalmic 0.5% 1 gtt in each affected eye 2 times a day for 7 day(s) 10/13/2021 Active cetirizine 10 mg 1 tab orally once a day Active Narcan 4 mg/0.1 mL as directed intranasally once 01/01/2020 Active folic acid 1 mg 1 tab orally once a day Active ondansetron 4 mg 1 tab(s) orally ever y 8 hours Active furosemide 40 mg 1 tab orally BID (additional tab PRN) Active potassium chloride 20 mEq 1 tab orally QD Active latanoprost ophthalmic 0.005% 1 gtt in each eye once a day (in the evening) for 30 day(s) 11/02/2022 Active Vitamin D2 2000 intl units as directed orally once a day Active acetaminophen-hydrocodo ne 325 mg-7.5 mg 1-2 tabs orally Q4-6H prn pain (max 6/day; hold within 4H of planned sleep) for 30 day(s) Do not fill prior to 08/06/23. ICD-10: G89.29 08/02/2023 Active magnesium chloride 300 1 tab orally QHS Active Xeljanz 5 mg 1 tab orally 2 times a day Active acetaminophen-hydrocodo ne 325 mg-7.5 mg 1-2 tabs orally Q4-6H prn pain (max 6/day; hold within 4H of planned sleep) for 30 day(s) Do not fill prior to 09/05/23. ICD-10: G89.29 08/02/2023 Active metFORMIN 500 mg 1 tab orally once a day Active acetaminophen-hydrocodo ne 325 mg-7.5 mg 1-2 tabs orally Q4-6H prn pain (max 6/day; hold within 4H of planned sleep) for 30 day(s) Do not fill prior to 10/05/23. ICD-10: G89.29 08/02/2023 Active methocarbamol 750 mg 1 tab orally every 6 hours Active gabapentin 300 mg 2 caps orally 3 time s a day Active spironolactone 25 mg 1 tab orally once a day Active glimepiride 4 mg 1 tab orally once a day Active SOCIAL HISTORY Tobacco Use: Social History Observation Description Date Details (start date - stop date) Never Smoker NA - NA Sex Assigned At : Social History Observation Description Sex Assigned At Unknown alcohol Question Answer Notes Did you have a drink containing alcohol in the p ast year? No Points 0 Interpretation Negative Tobacco use: Question Answer Notes : nonsmoker PROBLEMS Problem Type ICD Code Onset Dates Problem Status W/U Status Risk SNOMED Code Notes Problem Postherpetic neuralgia (053.19) Active confirmed Postherpetic neuralgia (6126514) Problem Thoracic radiculitis NOS (724.4) Active confirmed Thoracic radiculitis (1800710) Problem Muscle spasm (728.85) Active confirmed Spasm (89928066) Problem Hypersomnia (780.54) Active confirmed Hypersomnia (89996759) Problem Dysfunctions associated with sleep stages or arousal from sleep (780.56) Active confirmed Sleep dysfunc tion with sleep stage disturbance (228529707) Problem Thoracic pain (724.1) Active confirmed Pain in thoraci c spine (750746447) Problem LONG-TERM USE MEDS NEC (V58.69) Active confirmed Long-term drug therapy (450975854) R/O substance abuse Problem Anxiety State, other, specified: procedure related (300.09) Active confirmed Anxiety sta te (555317533) Problem 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) Active confirmed Displacement of thoracic intervertebral disc without myelopathy (93010015) Problem Thoracic spinal stenosis (724.01) Active confirmed Thoracic spinal stenosis (94104469) Problem Thoracic spondylosis without myelopathy (721.2) Active confirmed Thoracic spondylosis without myelopathy (618237414) Problem Sleep apnea, obstructive (327.23) Active confirmed Obstructive sle ep apnea syndrome (40127910) Problem Sacroiliitis, not elsewhere classified (M46.1) Active confirmed Solitary sacroiliitis (536567053) Problem Low back pain (M54.5) Active confirmed Low back pain (488520335) Problem Spondylosis without myelopathy or radiculopathy, lumbar region (M47.816) Active confirmed Lumbosacral spondylosis without myelopathy (14356895) Problem jail (current) use of opiate analgesic (Z79.891) Active confirmed High risk drug monitoring status (309789594) Problem Other specified anxiety disorders (F41.8) Active confirmed Anxiety disorde r (363287050) Problem Obstructive sleep apnea (adult) (pediatric) (G47.33) Active confirmed Obstructive sle ep apnea syndrome (01440338) Problem Other chronic pain (G89.29) Active confirmed Chronic pain (25904532) Problem Spondylolisthesi s, lumbar region (M43.16) Active confirmed Acquired spondylolisthesis (245072807) Problem Spondylosis without myelopathy or radiculopathy, thoracic region (M47.814) Active confirmed Thoracic spondylosis without myelopathy (871075947) Problem Spinal stenosis, thoracic region (M48.04) Active confirmed Spinal stenosis of thoracic region (61221052) Problem Spinal stenosis, lumbar region (M48.06) Active confirmed Spinal stenosis of lumbar region (92864473) Problem Intervertebral disc disorders with radiculopathy, thoracic region (M51.14) Active confirmed Thoracic radiculopathy (19326415) Problem Intervertebral disc disorders with radiculopathy, lumbar region (M51.16) Active confirmed Radiculopathy d ue to lumbar intervertebral disc disorder (761287056124644) Problem Radiculopathy, thoracic region (M54.14) Active confirmed Thoracic radiculopathy (78730587) Problem Pain in thoracic spine (M54.6) Active confirmed Pain in thorac ic spine (973356241) Problem Myalgia (M79.1) Active confirmed Myalgi a (65102424) Problem Spinal stenosis, lumbar region with neurogenic claudication (M48.062) Active confirmed Neurogenic claudication (427483035) Problem Myalgia of auxiliary muscles, head and neck (M79.12) Active confirmed Myalgia (31554464) Problem Low back pain, unspecified (M54.50) Active confirmed Low back pain (215999569) Problem Vertebrogenic low back pain (M54.51) Active confirmed Pain in lumbar spine (096362660) VITAL SIGNS Temperature 97.6 degrees Fahrenheit 08/02/2023 Oximetry 98 % 08/02/2023 Blood pressure diastolic 84 mm Hg 11/02/2022 Height 60 in 08/02/2023 Blood pressure systolic 168 mm Hg 11/02/2022 Weight 166.8 lbs 08/02/2023 BMI 32.57 kg/m2 08/02/2023 Encounters Encounter Location Date Provider Diagnosis [facility] [address], [place] [id number] 11/02/2022 Geovani Mahajan Spinal stenosis, lumbar region with neurogenic claudication M48.062 ; Vertebrogenic low back pain M54.51 ; Spondylosis without myelopathy or radiculopathy, lumbar region M47.816 ; Sacroiliitis, not elsewhere classified M46.1 ; Spondylolisthesis, lumbar region M43.16 ; Intervertebral disc disorders with radiculopathy, lumbar region M51.16 ; Spinal stenosis, thoracic region M48.04 ; Pain in thoracic spine M54.6 ; Intervertebral disc disorders with radiculopathy, thoracic region M51.14 ; Radiculopathy, thoracic region M54.14 ; Spondylosis without myelopathy or radiculopathy, thoracic region M47.814 ; Myalgia of auxiliary muscles, head and neck M79.12 ; Obstructive sleep apnea (adult) (pediatric) G47.33 and buttermaker continuous churn (current) use of opiate analgesic Z79.891 [facility] [address] [place] [id number] 01/25/2023 Emileemarisa Woodruffs Vertebrogenic low ba ck pain M54.51 ; Other chronic pain G89.29 and jail (current) use of opiate analgesic Z79.891 [facility] [address] [place] [phone] 05/03/2023 Emilee Holliday Vertebrogenic low ba ck pain M54.51 and Other chronic pain G89.29 [facility] [address] [place] [id number] 08/02/2023 Emilee Holliday Vertebrogenic low ba ck pain M54.51 ; Other chronic pain G89.29 and Obstructive sleep apnea (adult) (pediatric) G47.33 ASSESSMENTS Encounter Date Diagnosis Assessment Notes Treatment Notes Treatment Clinical Notes 11/02/2022 Spinal stenosis, lumbar region with neurogenic claudication (ICD-10 - M48.062) Consider DCS trial as needed / desired by patient, however, patient's T7-8 pathology could conceivably adversely affect such a trial. Written and AV information regarding DCS trial / placement given to patient at 02/17/22 visit (patient has deferred on this treatment option) 01/25/2023 Other chronic pain (ICD-10 - G89.29) Patient reports by taking her pain medication, she is able to work in her yard and garden. Plan to continue oral opioid medication management 01/25/2023 Vertebrogenic low back pain (ICD-10 - M54.51) Chronic axial lumbosacral spine pain 05/03/2023 Vertebrogenic low back pain (ICD-10 - M54.51) Chronic axial lumbosacral spine pain. IM steroid injection given by Dr. Walton with minimal benefit 08/02/2023 Vertebrogenic low back pain (ICD-10 - M54.51) Chronic axial lumbosacral spine pain. 08/02/2023 Obstructive sleep apnea (adult) (pediatric) (ICD-10 - G47.33) Patient with history of untreated sleep apnea. Plan to continue opioid restriction in relation to sleep. 08/02/2023 Other chronic pain (ICD-10 - G89.29) Patient reports that taking her pain medication allows her to fiber picker pecans and 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 Plan to continue oral opioid medication management. 05/03/2023 Other chronic pain (ICD-10 - G89.29) Patient reports that taking her pain medication allows her to work in her garden and participate in P.T. Plan to continue oral opioid medication management 11/02/2022 Vertebrogenic low back pain (ICD-10 - M54.51) Chronic axial lumbosacral (and thoracic) spine pain. Prior minimal conservative treatment by patient has been noted. Prior minimally invasive interventional treatment via other provider(s) as noted, below. Prior minimally invasive interventional treatment by this provider as noted, below. Will consider additional minimally invasive interventional spine treatment if desired by patient (patient has deferred). Oral opioid medication use with history of benefit. Plan to continue medication management 01/25/2023 jail (current) use of opiate analgesic (ICD-10 - Z79.891) Plan urine toxicology screen today to monitor compliance regarding use of prescribed hydrocodone and for the presence of any unprescribed or illicit drugs 11/02/2022 Spondylosis without myelopathy or radiculopathy, lumbar region (ICD-10 - M47.816) 11/02/2022 Sacroiliitis, not elsewhere classified (ICD-10 - M46.1) 11/02/2022 Spondylolisthesis, lumbar region (ICD-10 - M43.16) 6 mm anterolisthesis of L4 with mild instability as per 01/01/16 flexion - extension imaging study report 11/02/2022 Intervertebral disc disorders with radiculopathy, lumbar region (ICD-10 - M51.16) L4-5 MARIBEL with history of efficacy appreciated. Do not anticipate offering patient another LESI (due to prior Medicare regulation changes - a prior scope of practice change by this provider) 11/02/2022 Spinal stenosis, thoracic region (ICD-10 - M48.04) Updated imaging report has been reviewed with patient. Consider DCS trial and / or neurosurgical referral as needed. Patient has stated that she will contact this facility if such treatment is desired 11/02/2022 Pain in thoracic spine (ICD-10 - M54.6) Continue use of TENS unit. Patient had reported that she resumed use of her TENS unit as well as a clavicle strap for posture. Updated report on 12/11/20: good benefit. Do not anticipate offering patient any additional fluoroscope - guided minimally invasive interventional spine treatment for thoracic spine via this facility / provider (prior scope of practice change by this provider). 11/02/2022 Intervertebral disc disorders with radiculopathy, thoracic region (ICD-10 - M51.14) T7-8 paracentral protrusion has been noted to flatten the spinal cord as per most recent imaging report. T8-9 MARIBEL with history of efficacy appreciated 11/02/2022 Radiculopathy, thoracic region (ICD-10 - M54.14) Could consider a DCS trial, however, patient's T7-8 pathology could conceivably adversely affect such a trial. Written and AV information provided patient at 03/27/13 visit and again at 02/17/22 visit: patient has deferred on such treatment 11/02/2022 Spondylosis without myelopathy or radiculopathy, thoracic region (ICD-10 - M47.814) Thoracic medial branch blocks / RFA by another provider / facility with history of no efficacy per prior patient report 11/02/2022 Myalgia of auxiliary muscles, head and neck (ICD-10 - M79.12) TPIs with history of efficacy appreciated 11/02/2022 Obstructive sleep apnea (adult) (pediatric) (ICD-10 - G47.33) Have recommended patient continue CPAP device use at 11-15 cm of water pressure. Patient had history of benefit from use of the device, however, patient was told by her PCP that she didn't need to wear it anymore since she wasn't having fatigue symptoms s/p weight loss: she dicontinued use. Have recommended updated sleep study: prior offer of a sleep study declined / deferred by patient. Plan to restrict opioid usage in relation to sleep: patient has verbalized understanding to hold short-acting opioids within four hours of planned sleep. Patient has been counseled on the risks of sleep apnea, with or without opioids (or other sedatives), and the patient verbalized understanding and acceptance of the increased risk (worsened sleep apnea, respiratory depression, ) associated with sedative / hypnotic / narcotic (opioid) medication use 11/02/2022 jail (current) use of opiate analgesic (ICD-10 - Z79.891) Patient has a total daily MED of 45. This places the patient in the [facility] moderate risk category for total daily opioid usage (not to be confused with the separate potential significant risk in regards to previously diagnosed sleep apnea, above). Have recommended patient taper daily doses to the lowest number of daily doses that provide effective analgesia. Patient has received the Opioid [facility]ges[facility] Patient Counseling Guide. Patient has had opportunity to read the Guide and ask questions pertaining to the Guide. Patient has been advised on 06/24/20 that due to the Federal Government concerns and actions, any suspected patient misuse, abuse, or diversion of controlled substances (i.e. opioids/narcotics/pa in killers) WILL result in dissolution of treatment from this clinic. Patients adhering to the concepts contained within the patient's Treatment Agreement will be protected from such termination of care. Patient was given a copy of the Treatment Agreement, signed by patient on 01/01/20. Patient signed an opioid consent form on 01/01/20. Patient has accepted a prescription for Narcan nasal spray 11/02/2022 Other 01/25/2023 Other 05/03/2023 Other 08/02/2023 Other PLAN OF TREATMENT Next Appt Details Provider Name:Geovani Omer son, 10/27/2023 08:40:00 AM, [address], [place], [place], [id number], Insurance Providers Payer Name Payer Address Payer Phone Subscriber Number Group Number Insured Name Patient Relationship to Insured Coverage Start Date Coverage End Date [employer] [address] [address] [place] [address] [phone] [id number] Chela Rodriguez Self - patient is the insured MEDICAL (GENERAL) HISTORY Medical History History ICD Code Chronic pain Low back pain Lumbar spondylosis, disc disease and spo ndylolisthesis Sacroiliitis Mid back pain Thoracidc spondylosis, disc disease and spinal stenosis Fibromyalgia Polymyositis Neuropathy Intercostal neuralgia / post-herpetic ne uralgia / shingles Rotator cuff tear, right shoulder Diabetes mellitus Hypertension Fatigue CHF TB Shingles left foot and ankle (11/2021: r esolved with medication) Sleep apnea, untreated Obesity, moderate Surgical History Surgery Date(Month/Year) Appendectomy Cholecystectomy, 1982 Hysterectomy, partial Tonsillectomy , 1982 Angiogram, 10/2010 Right shoulder repair, 10/24/12 Posterior vaginal wall repair, 10/2014 Dental extractions, 11/2016 Eye surgery, bilateral, performed by Dr. Patton, 10/2021 Hospitalization History Reason Date(Month/Year) Siobhan 2008 Cardiac work up, 12/2012
[2023-10-15] MEDS: metroNIDAZOLE IV 500 MG/100 ML PREMIX 100 MG IV (15:26)
--- NOTE | 2023-10-15 15:38 | PC.NURSE ---
Patient's daughter is upset because she feels like her mother should have private room because the patient she is in the room is wearing perfume and they feel she might become allergic to it. Patient moved to private room at patient family request.
[2023-10-15 16:37] LABS: Glucose Point of Care 178 mg/dL (70-110)
[2023-10-15] MEDS: metoprolol tartrate 25 mg Tablet 12.5 MG PO (18:37)
[2023-10-15] MEDS: insulin lispro 100 unit/1 mL SUBCUT (18:37)
[2023-10-15] MEDS: isosorbide mononitrate ER 30 mg Tablet PO (18:38)
[2023-10-15] MEDS: piperacillin-tazobactam 3.375 GM in sodium chloride 0.9% (plus) 50 ML IV (18:38)
[2023-10-15] MEDS: pantoprazole 40 mg SDV IVP (18:40)
[2023-10-15] MEDS: sodium chloride 0.9% 1,000 ML 30 ML IV (18:46)
[2023-10-15] MEDS: enoxaparin 100 mg/mL Syringe 80 MG SUBCUT (19:56)
[2023-10-15 21:33] LABS: Glucose Point of Care 141 mg/dL (70-110)
[2023-10-15] MEDS: diphenhydrAMINE 25 mg Capsule PO (22:04)
[2023-10-16] MEDS: piperacillin-tazobactam 3.375 GM in sodium chloride 0.9% (plus) 50 ML IV (01:21)
[2023-10-16 03:14] LABS: Basophils % 0.4 %; Eosinophils # 0.2 10^3/uL (0.0-0.8); Eosinophils % 1.8 %; Hematocrit 35.2 % (36-47); Lymphocytes % 9.5 %; Mean Corpuscular Hemoglobin 31.4 pg (27-33); Mean Corpuscular Volume 95.4 fl (85-98); Mean Platelet Volume 10.7 fL (7.4-10.4); Monocytes # 0.7 10^3/uL (0.2-0.9); Monocytes % 6.7 %; Neutrophils # 8.41 10^3/uL (1.8-7.7); Neutrophils % 80.8 %; Nucleated Red Blood Cells % 0 %; Platelet Count 355 10^3/cmm (157-399); Red Blood Count 3.69 10^6/uL (3.85-5.65); White Blood Count 10.41 10^3/uL (3.29-11.43)
[2023-10-16 03:35] LABS: Anion Gap 16.1 (5-19); Blood Urea Nitrogen 10 mg/dL (8-23); C Reactive Protein 21.8 mg/L (0.0-4.9); Calcium 8.7 mg/dL (8.5-10.5); Carbon Dioxide 28 mmol/L (22-29); Chloride 94 mmol/L (98-107); Glucose 214 mg/dL (65-115); Magnesium 2.3 mg/dL (1.7-2.3); Osmolality Calculated 283 mOsm/kg (285-295); Phosphorus 2.7 mg/dL (2.5-4.5); Potassium 4.1 mmol/L (3.5-5.1); Sodium 134 mmol/L (136-145)
[2023-10-16 03:37] LABS: Lactate (Lactic Acid level) 1.9 mmol/L (0.5-2.2)
--- NOTE | 2023-10-16 06:02 | PC.NURSE ---
Patient stated she needed to go home. When this nurse inquired to what was going on, the patient stated, I just need to go home. I know I brought my own sheets, but my throat feels like it's about to close up from all the different chemicals and smells. Patient was informed of health risks. Dr. Jaramillo was notified. Patient advised to come back to the emergency room if bleeding continues or worsens and to be careful of falls due to higher risk of bleeding. Patient acknowledged risks of leaving and signs of worsening symptoms. Patient stated she already has a follow up with her healthcare provider tomorrow.
--- NOTE | 2023-10-16 06:39 | P.DS_ITS ---
Discharge Providers Date of Admission: 10/15/23 10:29 Date of Discharge: October 16, 2023 Attending Provider at Admission: Carlos Jones MD Attending Provider at Discharge: Carlos Jones MD Primary Care Provider: Devon Walton MD Diagnoses at Discharge Discharge Diagnosis (1) Hepatomegaly: Status: Acute (2) Mesenteric ischemia: Status: Acute (3) Diverticulosis: Status: Acute (4) Diabetes mellitus type 2, controlled: Status: Acute Qualifiers: Diabetes mellitus intermediate insulin use: without intermediate use Diabetes mellitus complication status: without complication Qualified Code(s): E11.9 - Type 2 diabetes mellitus without complications (5) Sleep related hypoxia: Status: Acute (6) Psoriasis: Status: Acute (7) Paroxysmal atrial fibrillation with RVR: Status: Acute Reason for Visit Reason for Visit: GI BLEED Hospital Course Hospital Course 78-year female who was admitted for management evaluation of bright bleed per rectum which was being investigated as mesenteric ischemia versus diverticulosis/diverticular bleed patient's hemoglobin was stable she was hemodynamically stable, she was diagnosed with ascites with hepatomegaly there was concern for ROSARIO, 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 Discharge Data Studies Completed and Pending Completed Studies During Hospitalization Category Date Time Status CT abdomen pelvis w con* [id number] Stat Cat Scan 10/15/23 08:35 Completed XR chest 1V portable [id number] Stat Exams 10/15/23 08:35 Completed Radiology Impressions Abdomen/Pelvis CT 10/15/23 08:35 IMPRESSION: 1. 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 The right kidney is poorly perfused and hypoenhances relative to the left kidney. 2. 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 3. Indeterminate left renal lesion. Recommend ultrasound to exclude a solid renal mass. 4. Cystic lesion in the left adnexa. Ovarian cysts are abnormal in postmenopausal patients. Recommend nonemergent pelvic ultrasound. 5. Hepatomegaly with periportal lymphadenopathy and possible hepatic cirrhosis. There is mild ascites. 6. Small bilateral pleural effusions. ADDENDUM: 10/15/23 1002 The appendix is not definitively seen. There is a small amount of dense material in the distal sigmoid colon and rectum that may represent blood. Findings discussed with EDELMIRA MILLER at 10/15/2023 9:59 AM ARCHITECTURAL DESIGN LECTURER. Chest X-Ray 10/15/23 08:35 IMPRESSION: Small bilateral pleural effusions are better seen on CT. Laboratory Results WBC 10.41 10^3/uL (3.29-11.43) 10/16/23 02:13 RBC 3.69 10^6/uL (3.85-5.65) L 10/16/23 02:13 Hgb 11.60 g/dL (11.27-16.99) 10/16/23 02:13 Hct 35.2 % (36-47) L 10/16/23 02:13 MCV 95.4 fl (85-98) 10/16/23 02:13 MCH 31.4 pg (27-33) 10/16/23 02:13 MCHC 33.0 g/dL (30-55) 10/16/23 02:13 RDW 14.0 % (12.1-15.1) 10/16/23 02:13 Plt Count 355 10^3/cmm (157-399) 10/16/23 02:13 MPV 10.7 fL (7.4-10.4) H 10/16/23 02:13 Neut % (Auto) 80.8 % 10/16/23 02:13 Lymph % (Auto) 9.5 % 10/16/23 02:13 [place] % (Auto) 6.7 % 10/16/23 02:13 Eos % (Auto) 1.8 % 10/16/23 02:13 Baso % (Auto) 0.4 % 10/16/23 02:13 Neut # (Auto) 8.41 10^3/uL (1.8-7.7) H 10/16/23 02:13 Lymph # (Auto) 1.0 10^3/uL (0.8-4.8) 10/16/23 02:13 [place] # (Auto) 0.7 10^3/uL (0.2-0.9) 10/16/23 02:13 Eos # (Auto) 0.2 10^3/uL (0.0-0.8) 10/16/23 02:13 Baso # (Auto) 0.0 10^3/uL (0.0-0.1) 10/16/23 02:13 Nucleated RBC % (auto) 0 % 10/16/23 02:13 Nucleated RBCs # 0.0 /100WBC 10/16/23 02:13 PT 17.00 SECONDS (12.1-14.9) H 10/15/23 08:02 INR 1.33 (0.8-1.2) H 10/15/23 08:02 APTT 44.3 SECONDS (23.9-36.7) H 10/15/23 08:02 Sodium 134 mmol/L (136-145) L 10/16/23 02:13 Potassium 4.1 mmol/L (3.5-5.1) 10/16/23 02:13 Chloride 94 mmol/L (98-107) L 10/16/23 02:13 Carbon Dioxide 28 mmol/L (22-29) 10/16/23 02:13 Anion Gap 16.1 (5-19) 10/16/23 02:13 BUN 10 mg/dL (8-23) 10/16/23 02:13 Creatinine 1.0 mg/dL (0.5-0.9) H 10/16/23 02:13 GFR Calculation Not Reportable 10/16/23 02:13 Glucose 214 mg/dL (65-115) H 10/16/23 02:13 POC Glucose 141 mg/dL (70-110) H 10/15/23 21:28 Estimat Average Glucose 203 10/15/23 09:02 Hemoglobin A1c 8.7 % (4.0-6.0) H 10/15/23 09:02 Calculated Osmolality 283 mOsm/kg (285-295) L 10/16/23 02:13 Lactic Acid 2.9 mmol/L (0.5-2.2) H 10/15/23 09:02 Lactic Acid (Sepsis) 1.6 mmol/L (0.5-2.2) 10/15/23 12:02 Lactate 1.9 mmol/L (0.5-2.2) 10/16/23 02:13 Calcium 8.7 mg/dL (8.5-10.5) 10/16/23 02:13 Phosphorus 2.7 mg/dL (2.5-4.5) 10/16/23 02:13 Magnesium 2.3 mg/dL (1.7-2.3) 10/16/23 02:13 Total Bilirubin 1.0 mg/dL (0.15-1.2) 10/15/23 09:02 AST 13 U/L (0-32) 10/15/23 09:02 ALT 12 U/L (0-33) 10/15/23 09:02 Alkaline Phosphatase 67 U/L (35-105) 10/15/23 09:02 C-Reactive Protein 21.8 mg/L (0.0-4.9) H 10/16/23 02:13 Total Protein 6.7 g/dL (6.6-8.7) 10/15/23 09:02 Albumin 3.5 g/dL (3.5-5.2) 10/15/23 09:02 Globulin 3.2 g/dL (1.3-4.6) 10/15/23 09:02 TSH 1.11 uIU/mL (0.27-4.20) 10/15/23 09:02 Urine Color Yellow (Yellow) 10/15/23 08:55 Urine Appearance Clear (CLEAR) 10/15/23 08:55 Urine pH 5 (5-7) 10/15/23 08:55 Ur Specific [place] 1.010 (1.005-1.030) 10/15/23 08:55 Urine Protein 1+ (Negative) H 10/15/23 08:55 Urine Glucose (UA) 4+ (Normal) H 10/15/23 08:55 Urine Ketones Negative (Negative) 10/15/23 08:55 Urine Blood 2+ (Negative) H 10/15/23 08:55 Urine Nitrate Negative (Negative) 10/15/23 08:55 Urine Bilirubin Neg (Negative) 10/15/23 08:55 Urine Urobilinogen Norm mg/dL (Negative) 10/15/23 08:55 Ur Leukocyte Esterase Negative (Negative) 10/15/23 08:55 Urine RBC 0-4 /hpf (0-2) H 10/15/23 08:55 Urine WBC 5-10 /hpf (0-5) H 10/15/23 08:55 Ur Squamous Epith Cells None /hpf (0-5) 10/15/23 08:55 Amorphous Sediment Not Reportable 10/15/23 08:55 Urine Bacteria Trace /hpf (NONE) 10/15/23 08:55 Blood Type O Positive 10/15/23 09:02 Rho(D) Type Rh positive 10/15/23 09:02 Antibody Screen Negative 10/15/23 09:02 Vitals Last Vital Signs Temp 98.7 F 10/15/23 23:08 Pulse 57 L 10/15/23 23:08 Resp 16 10/15/23 23:08 BP 123/72 10/15/23 23:08 Pulse Ox 90 10/15/23 23:08 O2 Del Method Room Air 10/15/23 17:23 Discharge Plan Discharge Patient Disposition: Left Against Medical Advice Condition: Stable Prescriptions: No Action hydrocodone-acetaminophen 7.5-325 mg tablet 1 - 2 tab PO Q6H PRN (Reason: Pain) cetirizine [Zyrtec] 10 mg tablet 5 mg PO DAILY metoprolol tartrate 25 mg tablet 12.5 mg PO BID Qty: 30 1RF (DME) Monoject TB Safety Syringe 1 mL 25 gauge x 5/8 syringe See Rx Instructions .ROUTE .MEDSUPPLY Qty: 50 1RF Rx Instructions: As directed prednisone 10 mg tablet See Rx Instructions PO .COMPLEX PRN (Reason: joint pain) Qty: 30 1RF Rx Instructions: take 1 tab daily for 3-7 days prn joint pain flare PO PRN; gabapentin 100 mg capsule See Rx Instructions .ROUTE .COMPLEX Qty: 90 3RF Dose Instruction: take 1 capsule BY MOUTH THREE TIMES DAILY Rx Instructions: take 1 capsule BY MOUTH THREE TIMES DAILY Pacerone 200 mg tablet 100 mg PO DAILY metformin 500 mg tablet extended release 24 hr 1,000 mg PO QAM Hold Instructions: Resume on 10/13/23. furosemide 40 mg tablet 40 mg PO BID Hold Instructions: Resume on 10/13/23. spironolactone 25 mg tablet 25 mg PO DAILY Hold Instructions: Resume on 10/13/23. potassium chloride 20 mEq tablet,ER particles/crystals 20 meq PO DAILY aspirin 81 mg Tablet,Delayed Release (Dr/Ec) 81 mg PO DAILY Qty: 90 0RF loperamide 2 mg Capsule 2 mg PO QID PRN (Reason: Diarrhea) Qty: 30 1RF isosorbide mononitrate 30 mg Tablet Extended Release 24 Hr 30 mg PO BID Qty: 180 0RF clopidogrel 75 mg Tablet 75 mg PO DAILY Qty: 90 0RF amlodipine 10 mg Tablet 10 mg PO DAILY Qty: 90 0RF nitroglycerin 0.4 mg Tablet, Sublingual 0.4 mg sublingual Q5M PRN (Reason: Chest Pain) Qty: 25 0RF Eliquis 5 mg tablet 5 mg PO BID Qty: 180 0RF Referrals: Devon Walton MD [Primary Care Provider] - Discharge Attestations Time Spent in Discharge Care*: less than 30 min Quality Metrics Clinical Quality Measures [ No reported AMI, CVA or VTE this stay] Coding Level of Care Code Acute Code for Chg Fwd Diagnoses Hepatomegaly R16.0 Mesenteric ischemia K55.9 Diverticulosis K57.90 Controlled type 2 diabetes mellitus without complication, without long-term current use of insulin E11.9 Diabetes mellitus intermediate insulin use: without extermination inspector use Diabetes mellitus complication status: without complication Sleep related hypoxia G47.34 Psoriasis L40.9 Paroxysmal atrial fibrillation with RVR I48.0
--- OUTSIDE RECORDS SUMMARY | 2023-10-16 18:26 | XMS_ITS | Patient Health Record ---
Author Name Unknown Organization [facility] Address [address] [place], [place] [id number] Care Team Providers Care Woods Manager Name Role Phone Anton KHAN, Devon Primary Care Provider Unavail able Keyshawn KHAN, Geovani Unavailable [phone] Mg NEGRONP, Emilee Unavailable [phone] ALLERGIES Allergen (clinical drug ingredient) Drug/Non Drug [...] Postherpetic neuralgia (053.19) Active confirmed Postherpetic neuralgia (2331471) Problem Thoracic radiculitis NOS (724.4) Active confirmed Thoracic radiculitis (4843348) Problem Muscle spasm (728.85) Active confirmed Spasm (55695272) Problem Hypersomnia (780.54) Active confirmed Hypersomnia (86861622) Problem Dysfunctions associated with sleep stages or arousal from sleep (780.56) Active confirmed Sleep dysfunc tion with sleep stage disturbance (914279762) Problem Thoracic pain (724.1) Active confirmed Pain in thoraci c spine (093712082) Problem LONG-TERM USE MEDS NEC (V58.69) Active confirmed Long-term drug therapy (457685140) R/O substance abuse Problem Anxiety State, other, specified: procedure related (300.09) Active confirmed Anxiety sta te (367079747) Problem 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) Active confirmed Displacement of thoracic intervertebral disc without myelopathy (09457100) Problem Thoracic spinal stenosis (724.01) Active confirmed Thoracic spinal stenosis (83098327) Problem Thoracic spondylosis without myelopathy (721.2) Active confirmed Thoracic spondylosis without myelopathy (671336906) Problem Sleep apnea, obstructive (327.23) Active confirmed Obstructive sle ep apnea syndrome (94866165) Problem Sacroiliitis, not elsewhere classified (M46.1) Active confirmed Solitary sacroiliitis (279935746) Problem Low back pain (M54.5) Active confirmed Low back pain (770174815) Problem Spondylosis without myelopathy or radiculopathy, lumbar region (M47.816) Active confirmed Lumbosacral spondylosis without myelopathy (50369983) Problem senior care (current) use of opiate analgesic (Z79.891) Active confirmed High risk drug monitoring status (550098449) Problem Other specified anxiety disorders (F41.8) Active confirmed Anxiety disorde r (423261929) Problem Obstructive sleep apnea (adult) (pediatric) (G47.33) Active confirmed Obstructive sle ep apnea syndrome (69664697) Problem Other chronic pain (G89.29) Active confirmed Chronic pain (33177139) Problem Spondylolisthesi s, lumbar region (M43.16) Active confirmed Acquired spondylolisthesis (444588349) Problem Spondylosis without myelopathy or radiculopathy, thoracic region (M47.814) Active confirmed Thoracic spondylosis without myelopathy (090849347) Problem Spinal stenosis, thoracic region (M48.04) Active confirmed Spinal stenosis of thoracic region (00311302) Problem Spinal stenosis, lumbar region (M48.06) Active confirmed Spinal stenosis of lumbar region (23776641) Problem Intervertebral disc disorders with radiculopathy, thoracic region (M51.14) Active confirmed Thoracic radiculopathy (73886864) Problem Intervertebral disc disorders with radiculopathy, lumbar region (M51.16) Active confirmed Radiculopathy d ue to lumbar intervertebral disc disorder (349950668912413) Problem Radiculopathy, thoracic region (M54.14) Active confirmed Thoracic radiculopathy (48391177) Problem Pain in thoracic spine (M54.6) Active confirmed Pain in thorac ic spine (293843258) Problem Myalgia (M79.1) Active confirmed Myalgi a (24141031) Problem Spinal stenosis, lumbar region with neurogenic claudication (M48.062) Active confirmed Neurogenic claudication (429621580) Problem Myalgia of auxiliary muscles, head and neck (M79.12) Active confirmed Myalgia (46898027) Problem Low back pain, unspecified (M54.50) Active confirmed Low back pain (402553738) Problem Vertebrogenic low back pain (M54.51) Active confirmed Pain in lumbar spine (894362800) VITAL SIGNS Temperature 97.6 degrees Fahrenheit 08/02/2023 Oximetry 98 % 08/02/2023 Blood pressure diastolic 84 mm Hg 11/02/2022 Height 60 in 08/02/2023 Blood pressure systolic 168 mm Hg 11/02/2022 Weight 166.8 lbs 08/02/2023 BMI 32.57 kg/m2 08/02/2023 Encounters Encounter Location Date Provider Diagnosis Pain Treatment [facility] [address], [place] [id number] 11/02/2022 Geovani Mahajan Spinal stenosis, lumbar region [...] Obstructive sleep apnea (adult) (pediatric) G47.33 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 analgesic Z79.891 [facility] [address] [place] [id number] 01/25/2023 Emileemarisa Woodruffs Vertebrogenic low ba ck pain M54.51 ; Other chronic pain G89.29 and senior care (current) use of opiate analgesic Z79.891 [facility] [address] [place] [id number] 05/03/2023 Emilee Holliday Vertebrogenic low ba ck pain M54.51 and Other chronic pain G89.29 [facility] [address] [place] [id number] 08/02/2023 Emilee Holliday Vertebrogenic low ba ck [...] taking her pain medication allows her to knot 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 Plan to [...] benefit. Plan to continue medication management 01/25/2023 senior care (current) use of opiate analgesic (ICD-10 - [...] hypnotic / narcotic (opioid) medication use 11/02/2022 senior care (current) use of opiate analgesic (ICD-10 - [...] analgesia. Patient has received the Opioid Analgesic [facility] Patient Counseling Guide. Patient has had opportunity [...] Name:Geovani Omer son, 10/27/2023 08:40:00 AM, [address], [place], [place], [id number], Insurance Providers Payer Name Payer Address Payer Phone Subscriber Number Group Number Insured Name Patient Relationship to Insured Coverage Start Date Coverage End Date [employer] [address] [address] [place] [phone] [id number] Chela Rodriguez Self - patient is the [...]
== END 2023-10-16 06:02 | disposition left against medical advice (07) | DRG 377 ==
LOC: ER 12:17 → MEDSURG 19:29
PROVIDERS: Admitting Provider Internal Medicine; Emergency Provider Family Medicine; PCP Family Medicine; Visit Provider Internal Medicine
DX: K92.1 Melena (principal); K55.039 Acute (reversible) ischemia of large intestine, extent unspecified; R18.8 Other ascites; K57.30 Diverticulosis of large intestine without perforation or abscess without bleeding; I70.1 Atherosclerosis of renal artery; I25.10 Atherosclerotic heart disease of native coronary artery without angina pectoris; E11.9 Type 2 diabetes mellitus without complications; L40.50 Arthropathic psoriasis, unspecified; R16.0 Hepatomegaly, not elsewhere classified; I48.0 Paroxysmal atrial fibrillation; R09.02 Hypoxemia; N28.9 Disorder of kidney and ureter, unspecified; Z53.29 Procedure and treatment not carried out because of patient's decision for other reasons; Z79.01 Long term (current) use of anticoagulants; Z79.02 Long term (current) use of antithrombotics/antiplatelets; Z79.84 Long term (current) use of oral hypoglycemic drugs; Z86.15 Personal history of latent tuberculosis infection
CPT/HCPCS: 36415; 36416; 71045; 74177; 80048; 80053; 81001; 82962; 83036; 83605; 83735; 84100; 84443; 85025; 85610; 85730; 86140; 86850; 86900; 93005; 96372; 96374; 96375; 99285; C9113; G0378; J0744; J1650; J1815; J2405; J2543; J3490; J7030; Q9967

== ENCOUNTER 2023-11-07 07:12 | Outpatient (CLI) | payer MEDICARE, SELFPAY ==
--- NOTE | 2023-11-07 07:45 | US_ITS ---
WS: [id number] US pelvic complete* [id number] HISTORY: 10/15/2023, 10/02/2023 COMPARISON: None available. Prior hysterectomy. Right ovary: Prior oophorectomy. A normal LEFT ovary is not identified. There is a cystic mass within the high LEFT adnexa which would not be evident by transvaginal imaging. Only transabdominal imaging has been obtained. Cystic mass i n the LEFT adnexa poorly visualized due to its location and transabdominal imaging only. Cyst measure s 2.1 x 1.7 x 1.5 cm. No free fluid. This does correspond to the abnormality seen one CT. IMPRESSION: 1. O-RADS 2; cystic mass in the LEFT adnexa. Almost certainly benign. No imaging follow-up necessary . 2. Status post hysterectomy.
--- NOTE | 2023-11-07 08:30 | US_ITS ---
WS: [id number] ULTRASOUND RENAL TECHNIQUE: Ultrasound examination of both kidneys. CLINICAL INFORMATION: left renal mass COMPARISON: CT abdomen pelvis 10/15/2023 FINDINGS: RIGHT: Right kidney is slightly smaller compared to the LEFT. See recent CT abdomen pelvis report Echogenicity: Normal. Cortical thickness: 1.3 cm; Normal. Hydronephrosis: None. Perinephric fluid: None. Right kidney measures: 10.6 cm x 4.7 cm x 4.8 cm. LEFT: Left kidney is normal in size and appearance. Echogenicity: Normal. Cortical thickness: 1.4 cm; Normal. Hydronephrosis: None. Perinephric fluid: None. Left kidney measures: 11.1 cm x 5.8 cm x 4.8 cm. Normal visualized aorta. IMPRESSION: 1. Previously described indeterminate LEFT renal lesion seen on the recent CT not visualized on toda y's examination likely due to size and location. Recommend 6-month follow-up with contrast-enhanced C T abdomen pelvis. 2. No hydronephrosis in either kidney. 3. Normal bladder.
== END 2023-11-07 07:13 | disposition home or self-care (01) ==
LOC: RAD 07:13
PROVIDERS: PCP Family Medicine; Visit Provider Family Medicine
DX: N28.9 Disorder of kidney and ureter, unspecified
CPT/HCPCS: 76770; 76856

== ENCOUNTER 2023-11-19 19:52 | Emergency (ER) | payer MEDICARE, SELFPAY ==
[2023-11-19 19:53] VITALS: BP 178/69; PULSE 78; RESP 16; TEMP 36.9; O2SAT 96; BMI 29.2
--- NOTE | 2023-11-19 19:55 | XRR_ITS ---
PROCEDURE INFORMATION: Exam: XR Chest Exam date and time: 11/19/2023 8:10 PM Age: 78 years old Clinical indication: Pain; Chest pressure; Additional info: Cp TECHNIQUE: Imaging protocol: Radiologic exam of the chest. Views: 1 view. COMPARISON: CR (CHEST, ) 10/15/2023 9:25 AM FINDINGS: Lungs: See Pleural spaces finding. Pleural spaces: Mild thickening or fluid in the minor fissure on the right, unchanged with prior exam. No focal infiltrate or consolidation. No significant pleural effusion. No pneumothorax. Pulmonary vascularity is within normal limits. Heart/Mediastinum: No significant cardiomegaly. Mitral annular calcification. Vasculature: Arteriosclerosis of the thoracic aorta. Bones/joints: Visualized osseous structures show no acute abnormality. XR/XR chest 1V portable [id number] IMPRESSION: No acute findings.
--- NOTE | 2023-11-19 19:58 | ECG_ITS ---
[facility] Test Date: 2023-11-19 Pat Name: Chela Rodriguez Department: Room: Gender: Female Clinical Radiologist: : 1945 Requested By: Charles Keyes Order Number: [id number] Nessa MD: Jade Vargas M.D. Measurements Intervals [place] Rate: 76 P: 71 MA: 160 QRS: 56 QRSD: 94 T: 121 QT: 396 QTc: 445 Interpretive Statements SINUS RHYTHM WITH OCCASIONAL SUPRAVENTRICULAR PREMATURE COMPLEXES POSSIBLE ANTERIOR MYOCARDIAL INFARCTION , PROBABLY OLD [30 ms Q WAVE IN V3/V4, OR R < 0.2 mV IN V4] MODERATE T-WAVE ABNORMALITY, CONSIDER LATERAL ISCHEMIA [-0.1+ mV T-WAVE IN I/aVL/V5/V6] Compared to ECG 10/15/2023 08:45:59 Atrial fibrillation no longer present Prolonged QT interval no longer present Myocardial infarct finding still present T-wave abnormality still present Possible ischemia still present Electronically Signed On 11-20-2023 21:35:56 CDT by Jade Vargas M.D. [id number]
--- NOTE | 2023-11-19 20:07 | W.ED.CHESTPA ---
Documented by User: Charles Keyes MD 11/20/23 09:54 HPI - Chest Pain General: Chief Complaint: Chest Pain Stated Complaint: cp Time Seen by Provider: 11/19/23 20:02 Source: patient and EMS Mode of arrival: EMS Limitations: no limitations History of Present Illness: 78-year-old female has a history of coronary artery disease she had a stent placed in September states that this evening she started having a pressure type pain in the center of her chest she was given nitro aspirin in route with no relief of the pain states pains 4 out of 10 currently she had some dyspnea denies any nausea or diaphoresis. Associated symptoms: Deny abdominal pain, dyspnea, fever(s), nausea or vomiting Review of Systems Const: Denies: fever(s), chills, body aches or change in appetite ENMT: Denies: throat pain or dental pain Card: Reports: chest pain Resp: Denies: dyspnea GI: Denies: abdominal pain, nausea, vomiting or diarrhea Musc: Denies: neck pain or back pain Skin/Breast: Denies: rash Neuro: Denies: headache(s) PFSH ED PFSH: Medical History Diverticulosis Mesenteric ischemia Hepatomegaly Sleep related hypoxia Paroxysmal atrial fibrillation with RVR Coronary artery disease Latent tuberculosis Completed treatment in 2020 Diabetes mellitus type 2, controlled Shingles Immunization counseling Latent tuberculosis by blood test Tenosynovitis of ankle Psoriatic arthritis High risk medication use Peroneal tendinitis of both lower legs Osteoarthritis Rotator cuff arthropathy of right shoulder Psoriasis Surgical History History of eye surgery Removal of scar tissue History of tonsillectomy History of appendectomy History of tubal ligation History of cholecystectomy H/O: hysterectomy Family History Mother Diabetes Hypertension Heart disease Brother Hypertension Sister Hypertension Grandmother Stroke Other Cancer Social History Smoking and tobacco/nicotine status: never used tobacco/nicotine Alcohol intake: never Substance/Drug Use: never Physical Exam Const: COMMON NORMALS: patient oriented x3 HENMT: COMMON NORMALS: normocephalic and atraumatic HEAD & SCALP: normocephalic and atraumatic Eye: COMMON NORMALS: Equal, round and reactive pupils present and EOMs intact bilaterally PUPIL: Yes Equal, round and reactive pupils present Neck/C-Spine: COMMON NORMALS: full ROM and supple Chest: COMMONS NORMALS: normal inspection of the chest and normal palpation of entire chest wall Resp: COMMON NORMALS: normal respiratory effort, No retractions, No use of accessory muscles and clear to auscultation bilaterally AUSCULTATION: clear to auscultation bilaterally Cardio: COMMON NORMALS: regular rate, regular rhythm and No murmurs present (Cardio) RATE: regular rate RHYTHM: regular rhythm GI: COMMON NORMALS: Normal to inspection, nondistended, normoactive bowel sounds present, Soft to palpation, non-tender and no masses PALPATION: Yes Soft to palpation Extremity: COMMON NORMALS: normal to inspection and full ROM Neuro: COMMON NORMALS: patient oriented x3, moves all extremities and no focal motor deficits Psych: COMMON NORMALS: mental status grossly normal, Normal thought process present and cooperative THOUGHT PROCESS: Normal thought process present Skin: COMMON NORMALS: no rashes or lesions noted and no wounds GENERAL SKIN EXAM: no rashes or lesions noted Course Vital Signs: Vital signs: Vital Signs Temperature 98.5 F 11/20/23 00:05 Pulse Rate 57 L 11/20/23 00:05 Respiratory Rate 16 11/20/23 00:05 Blood Pressure 120/67 11/20/23 00:05 Pulse Oximetry 93 11/20/23 00:05 MDM - Chest Pain Medical Decision Making Patient presents here with chest pains atypical in nature it is inspirational likely pleuritic troponin initially is less than her baseline she had a recent cardiac stent as well. CT angio of her chest shows no PE. Patient's care turned over to Dr. Astudillo of 2-hour troponin is unchanged likely stable for discharge and follow-up with her PCP. Medical Records I reviewed the patient's medical records. Lab Data I reviewed the patient's lab results. 11/19/23 20:05 11/19/23 20:05 Radiology Impressions Chest X-Ray 11/19/23 19:55 IMPRESSION: No acute findings. Chest CTA 11/19/23 21:12 IMPRESSION: 1. No CT findings of pulmonary embolus. 2. Lung windows demonstrate a small amount of scattered ill-defined ground-glass opacity which could indicate minimal edema or infiltrate. No significant focal infiltrate or consolidation. No pleural effusion. 3. Cardiomegaly with coronary artery calcification and mitral annular calcification. 4. Arteriosclerosis of the thoracic aorta with mild chronic prominence of the ascending thoracic aorta. Laboratory Results WBC 10.59 10^3/uL (3.29-11.43) 11/19/23 20:05 RBC 3.92 10^6/uL (3.85-5.65) 11/19/23 20:05 Hgb 12.20 g/dL (11.27-16.99) 11/19/23 20:05 Hct 34.9 % (36-47) L 11/19/23 20:05 MCV 89.0 fl (85-98) 11/19/23 20:05 MCH 31.1 pg (27-33) 11/19/23 20:05 MCHC 35.0 g/dL (30-55) 11/19/23 20:05 RDW 12.2 % (12.1-15.1) 11/19/23 20:05 Plt Count 290 10^3/cmm (157-399) 11/19/23 20:05 MPV 9.8 fL (7.4-10.4) 11/19/23 20:05 Neut % (Auto) 73.7 % 11/19/23 20:05 Lymph % (Auto) 15.8 % 11/19/23 20:05 Merrick % (Auto) 6.3 % 11/19/23 20:05 Eos % (Auto) 3.1 % 11/19/23 20:05 Baso % (Auto) 0.4 % 11/19/23 20:05 Neut # (Auto) 7.81 10^3/uL (1.8-7.7) H 11/19/23 20:05 Lymph # (Auto) 1.7 10^3/uL (0.8-4.8) 11/19/23 20:05 Merrick # (Auto) 0.7 10^3/uL (0.2-0.9) 11/19/23 20:05 Eos # (Auto) 0.3 10^3/uL (0.0-0.8) 11/19/23 20:05 Baso # (Auto) 0.0 10^3/uL (0.0-0.1) 11/19/23 20:05 Nucleated RBC % (auto) 0 % 11/19/23 20:05 Nucleated RBCs # 0.0 /100WBC 11/19/23 20:05 PT 13.60 SECONDS (12.1-14.9) 11/19/23 20:05 INR 1.01 (0.8-1.2) 11/19/23 20:05 D-Dimer 1.01 ug/mLFEU (0-0.59) H 11/19/23 20:00 Sodium 136 mmol/L (136-145) 11/19/23 20:05 Potassium 3.4 mmol/L (3.5-5.1) L 11/19/23 20:05 Chloride 94 mmol/L (98-107) L 11/19/23 20:05 Carbon Dioxide 25 mmol/L (22-29) 11/19/23 20:05 Anion Gap 20.4 (5-19) H 11/19/23 20:05 BUN 9 mg/dL (8-23) 11/19/23 20:05 Creatinine 0.7 mg/dL (0.5-0.9) 11/19/23 20:05 GFR Calculation Not Reportable 11/19/23 20:05 Glucose 208 mg/dL (65-115) H 11/19/23 20:05 Calculated Osmolality 287 mOsm/kg (285-295) 11/19/23 20:05 Calcium 9.9 mg/dL (8.5-10.5) 11/19/23 20:05 Total Bilirubin 0.4 mg/dL (0.15-1.2) 11/19/23 20:05 AST 14 U/L (0-32) 11/19/23 20:05 ALT 11 U/L (0-33) 11/19/23 20:05 Alkaline Phosphatase 79 U/L (35-105) 11/19/23 20:05 Troponin T Baseline 49 ng/L (0-10) H 11/19/23 20:05 Troponin T 120 Minute 51.95 ng/L (0-10) H 11/19/23 21:50 Delta Troponin T 2.95 ABS# (0-10) 11/19/23 21:50 Total Protein 7.3 g/dL (6.6-8.7) 11/19/23 20:05 Albumin 4.4 g/dL (3.5-5.2) 11/19/23 20:05 Globulin 2.9 g/dL (1.3-4.6) 11/19/23 20:05 Lipase 30 U/L (13-60) 11/19/23 20:05 All radiology interpretation(s) finalized by discharge EKG Data EKG 1: I personally reviewed and interpreted this EKG as follows: EKG interpretation date: 11/19/23 EKG interpretation time: 19:58 Interpretation: nsr hr [address] elevation qrs 94 qtc 426 Discharge Plan Discharge Patient Disposition: Home Clinical Impression: Chest pain Condition: Stable Prescriptions: No Action hydrocodone-acetaminophen 7.5-325 mg tablet 1 - 2 tab PO Q6H PRN (Reason: Pain) cetirizine [Zyrtec] 10 mg tablet 5 mg PO DAILY metoprolol tartrate 25 mg tablet 12.5 mg PO BID Qty: 30 1RF Hold Instructions: Home Medication placed on hold at Doctor's office gabapentin 600 mg tablet 600 mg PO TID Qty: 90 3RF (DME) Monoject TB Safety Syringe 1 mL 25 gauge x 5/8 syringe See Rx Instructions .ROUTE .MEDSUPPLY Qty: 50 1RF Rx Instructions: As directed prednisone 10 mg tablet See Rx Instructions PO .COMPLEX PRN (Reason: joint pain) Qty: 30 1RF Rx Instructions: take 1 tab daily for 3-7 days prn joint pain flare PO PRN; Pacerone 200 mg tablet 100 mg PO DAILY Qty: 30 11RF metformin 500 mg tablet extended release 24 hr 1,000 mg PO QAM Hold Instructions: Resume on 10/13/23. furosemide 40 mg tablet 40 mg PO BID Hold Instructions: Resume on 10/13/23. spironolactone 25 mg tablet 25 mg PO DAILY Hold Instructions: Resume on 10/13/23. potassium chloride 20 mEq tablet,ER particles/crystals 20 meq PO DAILY aspirin 81 mg Tablet,Delayed Release (Dr/Ec) 81 mg PO DAILY Qty: 90 0RF loperamide 2 mg Capsule 2 mg PO QID PRN (Reason: Diarrhea) Qty: 30 1RF isosorbide mononitrate 30 mg Tablet Extended Release 24 Hr 30 mg PO BID Qty: 180 0RF clopidogrel 75 mg Tablet 75 mg PO DAILY Qty: 90 0RF amlodipine 10 mg Tablet 10 mg PO DAILY Qty: 90 0RF nitroglycerin 0.4 mg Tablet, Sublingual 0.4 mg sublingual Q5M PRN (Reason: Chest Pain) Qty: 25 0RF Eliquis 5 mg tablet 5 mg PO BID Qty: 180 0RF Discharge Orders: Discharge ED (Routine); Ordered 11/19/23 Ordered By: Denver Astudillo Referrals: Devon Walton MD [Primary Care Provider] - 4-7 days Discharge Diet: Advance as tolerated Discharge Activity: Resume usual activity Patient Instructions: Chest Pain (ED) Coding Level of Care Code ED Retirement Plan Specialist for Chg Fwd Documented by User: Denver Astudillo, 11/19/23 23:45 HPI - Chest Pain General: Chief Complaint: Chest Pain Stated Complaint: cp Time Seen by Provider: 11/19/23 20:02 PFSH ED PFSH: Medical History Diverticulosis Mesenteric ischemia Hepatomegaly Sleep related hypoxia Paroxysmal atrial fibrillation with RVR Coronary artery disease Latent tuberculosis Completed treatment in 2020 Diabetes mellitus type 2, controlled Shingles Immunization counseling Latent tuberculosis by blood test Tenosynovitis of ankle Psoriatic arthritis High risk medication use Peroneal tendinitis of both lower legs Osteoarthritis Rotator cuff arthropathy of right shoulder Psoriasis Surgical History History of eye surgery Removal of scar tissue History of tonsillectomy History of appendectomy History of tubal ligation History of cholecystectomy H/O: hysterectomy Family History Mother Diabetes Hypertension Heart disease Brother Hypertension Sister Hypertension Grandmother Stroke Other Cancer Social History Smoking and tobacco/nicotine status: never used tobacco/nicotine Alcohol intake: never Substance/Drug Use: never Course Vital Signs: Vital signs: Vital Signs Temperature 98.5 F 11/20/23 00:05 Pulse Rate 57 L 11/20/23 00:05 Respiratory Rate 16 11/20/23 00:05 Blood Pressure 120/67 11/20/23 00:05 Pulse Oximetry 93 11/20/23 00:05 MDM - Chest Pain Medical Decision Making Patient presents here with chest pains atypical in nature it is inspirational likely pleuritic troponin initially is less than her baseline she had a recent cardiac stent as well. CT angio of her chest shows no PE. Patient's care turned over to Dr. Astudillo. If 2-hour troponin is unchanged likely stable for discharge and follow-up with her PCP. Checked out at shift change. 2-hour troponin stayed down. Patient is still having mild discomfort with inspiration only. Pleuritic in nature. Groundglass opacities that are scattered, likely pulmonary edema given history of heart failure. Patient was given the option of admission/observation given her history, but she wishes to go home. She will be allowed discharge as above. She knows to return for any worsening of her symptoms. Lab Data 11/19/23 20:05 11/19/23 20:05 Radiology Impressions Chest X-Ray 11/19/23 19:55 IMPRESSION: No acute findings. Chest CTA 11/19/23 21:12 IMPRESSION: 1. No CT findings of pulmonary embolus. 2. Lung windows demonstrate a small amount of scattered ill-defined ground-glass opacity which could indicate minimal edema or infiltrate. No significant focal infiltrate or consolidation. No pleural effusion. 3. Cardiomegaly with coronary artery calcification and mitral annular calcification. 4. Arteriosclerosis of the thoracic aorta with mild chronic prominence of the ascending thoracic aorta. Laboratory Results WBC 10.59 10^3/uL (3.29-11.43) 11/19/23 20:05 RBC 3.92 10^6/uL (3.85-5.65) 11/19/23 20:05 Hgb 12.20 g/dL (11.27-16.99) 11/19/23 20:05 Hct 34.9 % (36-47) L 11/19/23 20:05 MCV 89.0 fl (85-98) 11/19/23 20:05 MCH 31.1 pg (27-33) 11/19/23 20:05 MCHC 35.0 g/dL (30-55) 11/19/23 20:05 RDW 12.2 % (12.1-15.1) 11/19/23 20:05 Plt Count 290 10^3/cmm (157-399) 11/19/23 20:05 MPV 9.8 fL (7.4-10.4) 11/19/23 20:05 Neut % (Auto) 73.7 % 11/19/23 20:05 Lymph % (Auto) 15.8 % 11/19/23 20:05 Merrick % (Auto) 6.3 % 11/19/23 20:05 Eos % (Auto) 3.1 % 11/19/23 20:05 Baso % (Auto) 0.4 % 11/19/23 20:05 Neut # (Auto) 7.81 10^3/uL (1.8-7.7) H 11/19/23 20:05 Lymph # (Auto) 1.7 10^3/uL (0.8-4.8) 11/19/23 20:05 Merrick # (Auto) 0.7 10^3/uL (0.2-0.9) 11/19/23 20:05 Eos # (Auto) 0.3 10^3/uL (0.0-0.8) 11/19/23 20:05 Baso # (Auto) 0.0 10^3/uL (0.0-0.1) 11/19/23 20:05 Nucleated RBC % (auto) 0 % 11/19/23 20:05 Nucleated RBCs # 0.0 /100WBC 11/19/23 20:05 PT 13.60 SECONDS (12.1-14.9) 11/19/23 20:05 INR 1.01 (0.8-1.2) 11/19/23 20:05 D-Dimer 1.01 ug/mLFEU (0-0.59) H 11/19/23 20:00 Sodium 136 mmol/L (136-145) 11/19/23 20:05 Potassium 3.4 mmol/L (3.5-5.1) L 11/19/23 20:05 Chloride 94 mmol/L (98-107) L 11/19/23 20:05 Carbon Dioxide 25 mmol/L (22-29) 11/19/23 20:05 Anion Gap 20.4 (5-19) H 11/19/23 20:05 BUN 9 mg/dL (8-23) 11/19/23 20:05 Creatinine 0.7 mg/dL (0.5-0.9) 11/19/23 20:05 GFR Calculation Not Reportable 11/19/23 20:05 Glucose 208 mg/dL (65-115) H 11/19/23 20:05 Calculated Osmolality 287 mOsm/kg (285-295) 11/19/23 20:05 Calcium 9.9 mg/dL (8.5-10.5) 11/19/23 20:05 Total Bilirubin 0.4 mg/dL (0.15-1.2) 11/19/23 20:05 AST 14 U/L (0-32) 11/19/23 20:05 ALT 11 U/L (0-33) 11/19/23 20:05 Alkaline Phosphatase 79 U/L (35-105) 11/19/23 20:05 Troponin T Baseline 49 ng/L (0-10) H 11/19/23 20:05 Troponin T 120 Minute 51.95 ng/L (0-10) H 11/19/23 21:50 Delta Troponin T 2.95 ABS# (0-10) 11/19/23 21:50 Total Protein 7.3 g/dL (6.6-8.7) 11/19/23 20:05 Albumin 4.4 g/dL (3.5-5.2) 11/19/23 20:05 Globulin 2.9 g/dL (1.3-4.6) 11/19/23 20:05 Lipase 30 U/L (13-60) 11/19/23 20:05 Discharge Plan Discharge Patient Disposition: Home Clinical Impression: Chest pain Condition: Stable Prescriptions: No Action hydrocodone-acetaminophen 7.5-325 mg tablet 1 - 2 tab PO Q6H PRN (Reason: Pain) cetirizine [Zyrtec] 10 mg tablet 5 mg PO DAILY metoprolol tartrate 25 mg tablet 12.5 mg PO BID Qty: 30 1RF Hold Instructions: Home Medication placed on hold at Doctor's office gabapentin 600 mg tablet 600 mg PO TID Qty: 90 3RF (DME) Monoject TB Safety Syringe 1 mL 25 gauge x 5/8 syringe See Rx Instructions .ROUTE .MEDSUPPLY Qty: 50 1RF Rx Instructions: As directed prednisone 10 mg tablet See Rx Instructions PO .COMPLEX PRN (Reason: joint pain) Qty: 30 1RF Rx Instructions: take 1 tab daily for 3-7 days prn joint pain flare PO PRN; Pacerone 200 mg tablet 100 mg PO DAILY Qty: 30 11RF metformin 500 mg tablet extended release 24 hr 1,000 mg PO QAM Hold Instructions: Resume on 10/13/23. furosemide 40 mg tablet 40 mg PO BID Hold Instructions: Resume on 10/13/23. spironolactone 25 mg tablet 25 mg PO DAILY Hold Instructions: Resume on 10/13/23. potassium chloride 20 mEq tablet,ER particles/crystals 20 meq PO DAILY aspirin 81 mg Tablet,Delayed Release (Dr/Ec) 81 mg PO DAILY Qty: 90 0RF loperamide 2 mg Capsule 2 mg PO QID PRN (Reason: Diarrhea) Qty: 30 1RF isosorbide mononitrate 30 mg Tablet Extended Release 24 Hr 30 mg PO BID Qty: 180 0RF clopidogrel 75 mg Tablet 75 mg PO DAILY Qty: 90 0RF amlodipine 10 mg Tablet 10 mg PO DAILY Qty: 90 0RF nitroglycerin 0.4 mg Tablet, Sublingual 0.4 mg sublingual Q5M PRN (Reason: Chest Pain) Qty: 25 0RF Eliquis 5 mg tablet 5 mg PO BID Qty: 180 0RF Discharge Orders: Discharge ED (Routine); Ordered 11/19/23 Ordered By: Denver Astudillo Referrals: Devon Walton MD [Primary Care Provider] - 4-7 days Discharge Diet: Advance as tolerated Discharge Activity: Resume usual activity Patient Instructions: Chest Pain (ED) Coding Level of Care Code ED Retirement Plan Specialist for Jan Tran
[2023-11-19 20:14] LABS: Basophils % 0.4 %; Eosinophils # 0.3 10^3/uL (0.0-0.8); Eosinophils % 3.1 %; Hematocrit 34.9 % (36-47); Lymphocytes # 1.7 10^3/uL (0.8-4.8); Lymphocytes % 15.8 %; Mean Corpuscular Hemoglobin 31.1 pg (27-33); Mean Platelet Volume 9.8 fL (7.4-10.4); Monocytes # 0.7 10^3/uL (0.2-0.9); Monocytes % 6.3 %; Neutrophils # 7.81 10^3/uL (1.8-7.7); Neutrophils % 73.7 %; Nucleated Red Blood Cells % 0 %; Platelet Count 290 10^3/cmm (157-399); Red Blood Count 3.92 10^6/uL (3.85-5.65); Red Cell Distribution Width 12.2 % (12.1-15.1); White Blood Count 10.59 10^3/uL (3.29-11.43)
[2023-11-19] MEDS: ondansetron 2 mg/ML SDV 2 mL 4 MG IVP (20:20)
[2023-11-19] MEDS: morphine 4 mg/mL SDV 1 mL IVP (20:20)
[2023-11-19 20:27] LABS: INR 1.01 (0.8-1.2)
[2023-11-19 20:34] LABS: Alanine Aminotransferase 11 U/L (0-33); Albumin Level 4.4 g/dL (3.5-5.2); Alkaline Phosphatase 79 U/L (35-105); Anion Gap 20.4 (5-19); Aspartate Amino Transferase 14 U/L (0-32); Blood Urea Nitrogen 9 mg/dL (8-23); Calcium 9.9 mg/dL (8.5-10.5); Carbon Dioxide 25 mmol/L (22-29); Chloride 94 mmol/L (98-107); Creatinine Clr Calc Pharmacy 54.9352; Globulin 2.9 g/dL (1.3-4.6); Glucose 208 mg/dL (65-115); Lipase 30 U/L (13-60); Osmolality Calculated 287 mOsm/kg (285-295); Potassium 3.4 mmol/L (3.5-5.1); Sodium 136 mmol/L (136-145); Total Bilirubin 0.4 mg/dL (0.15-1.2); Total Protein 7.3 g/dL (6.6-8.7)
[2023-11-19 20:42] LABS: Troponin(5th) Baseline 49 ng/L (0-10)
[2023-11-19 21:07] LABS: D Dimer 1.01 ug/mLFEU (0-0.59)
--- NOTE | 2023-11-19 21:12 | CTR_ITS ---
PROCEDURE INFORMATION: Exam: CTA Chest With Contrast Exam date and time: 11/19/2023 9:20 PM Age: 78 years old Clinical indication: Abnormal findings; Abnormal diagnostic tests; Elevated d-dimer; Shortness of breath and other: Tachycardia; Prior surgery; Surgery date: 6+ months; Surgery type: Gb; Patient HX: Severe SOB with tachycardia and high dimer. Recent mi. TECHNIQUE: Imaging protocol: Computed tomographic angiography of the chest with contrast. Exam focused on the arteries. 3D rendering (Not supervised by radiologist): MIP and/or 3D reconstructed images were created by the technologist. Radiation optimization: All CT scans at this facility use at least one of these dose optimization techniques: automated exposure control; mA and/or kV adjustment per patient size (includes targeted exams where dose is matched to clinical indication); or iterative reconstruction. Contrast material: OMNI 350; Contrast volume: 64 ml; Contrast route: INTRAVENOUS (IV); COMPARISON: CT chest wo [facility] [id number] 10/01/2023 10:21 PM RADIATION DOSE METRICS: Total DLP (mGy-cm): 441.01 FINDINGS: Pulmonary arteries: No hypodense filling defects are seen within the pulmonary arteries or their branches to indicate pulmonary embolus. Aorta: Arteriosclerosis of the thoracic aorta with mild chronic dilatation or ectasia of the ascending thoracic aorta with prior exam. No findings dissection. Thyroid: Mild enlargement right lobe of the thyroid with calcifications, unchanged from prior exam. Lungs: Lung windows demonstrate small amount of scattered ill-defined ground-glass opacity. This could indicate minimal edema or infiltrate. No focal infiltrate or consolidation. No suspicious nodule or mass. Central airways appear patent. Pleural spaces: No pleural effusion or pneumothorax. Heart: Cardiomegaly. No pericardial effusion. Coronary artery calcification. Mitral annular calcification. Lymph nodes: Unremarkable. No enlarged lymph nodes. Liver: Appearance of the liver within the upper abdomen is likely related to unopacified vascular structures. Previous cholecystectomy. Bones/joints: Spondylotic change thoracic spine. Soft tissues: Unremarkable. CT/CT angio chest PE protcl [id number] IMPRESSION: 1. No CT findings of pulmonary embolus. 2. Lung windows demonstrate a small amount of scattered ill-defined ground-glass opacity which could indicate minimal edema or infiltrate. No significant focal infiltrate or consolidation. No pleural effusion. 3. Cardiomegaly with coronary artery calcification and mitral annular calcification. 4. Arteriosclerosis of the thoracic aorta with mild chronic prominence of the ascending thoracic aorta.
[2023-11-19] MEDS: iohexol 350 mg/mL 500 mL Btl (per mL) IV (21:20)
--- NOTE | 2023-11-19 21:42 | ECG_ITS ---
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 Measurements Intervals [place] Rate: 58 P: 37 MO: 182 QRS: 54 QRSD: 98 T: 93 QT: 497 QTc: 491 Interpretive Statements SINUS BRADYCARDIA WITH OCCASIONAL SUPRAVENTRICULAR PREMATURE COMPLEXES MODERATE T-WAVE ABNORMALITY, CONSIDER LATERAL ISCHEMIA [-0.1+ mV T-WAVE IN I/aVL/V5/V6] Compared to ECG 11/19/2023 19:58:20 Sinus rhythm no longer present Myocardial infarct finding no longer present T-wave abnormality still present Possible ischemia still present Electronically Signed On 11-20-2023 21:56:02 CDT by Jade Vargas M.D. [id number]
[2023-11-19 22:23] LABS: Troponin 5 2HR 51.95 ng/L (0-10); Troponin 5 2HR Delta 2.95 ABS# (0-10)
[2023-11-19 22:24] VITALS: BP 120/67; PULSE 57; RESP 16; O2SAT 93
[2023-11-20 00:05] VITALS: BP 120/67; PULSE 57; RESP 16; TEMP 36.9; O2SAT 93
== END 2023-11-20 00:06 | disposition home or self-care (01) ==
PROVIDERS: Emergency Medicine; Emergency Provider Emergency Medicine; PCP Family Medicine
DX: R07.9 Chest pain, unspecified (principal); Z79.02 Long term (current) use of antithrombotics/antiplatelets; Z79.82 Long term (current) use of aspirin; Z79.01 Long term (current) use of anticoagulants; Z79.84 Long term (current) use of oral hypoglycemic drugs; I25.10 Atherosclerotic heart disease of native coronary artery without angina pectoris; E11.9 Type 2 diabetes mellitus without complications
CPT/HCPCS: 36415; 71045; 71275; 80053; 83690; 84484; 85025; 85378; 85610; 93005; 96374; 96375; 99285; J2270; J2405; Q9967

== ENCOUNTER 2023-12-05 11:00 | Outpatient (CLI) | payer MEDICARE, SELFPAY | END 2023-12-05 11:01 | disposition home or self-care (01) | LOC: SLEEP 12-06 13:40 | PROVIDERS: PCP Family Medicine; Visit Provider Internal Medicine | DX: Z53.9 Procedure and treatment not carried out, unspecified reason (principal); G47.10 Hypersomnia, unspecified; I50.9 Heart failure, unspecified; I48.0 Paroxysmal atrial fibrillation; I21.29 ST elevation (STEMI) myocardial infarction involving other sites; Z09 Encounter for follow-up examination after completed treatment for conditions other than malignant neoplasm; I50.41 Acute combined systolic (congestive) and diastolic (congestive) heart failure; I25.10 Atherosclerotic heart disease of native coronary artery without angina pectoris | CPT/HCPCS: 36415; 80048; 83880; 93005; 99214; G0399 ==

== ENCOUNTER → 2023-12-14 13:08 | Outpatient (BNVA) | payer MEDICARE, SELFPAY | PROVIDERS: PCP Family Medicine; Visit Provider Internal Medicine | DX: I25.10 Atherosclerotic heart disease of native coronary artery without angina pectoris (principal); I50.41 Acute combined systolic (congestive) and diastolic (congestive) heart failure; I48.91 Unspecified atrial fibrillation | CPT/HCPCS: 99214 ==

== ENCOUNTER 2024-03-10 09:56 | Observation (INO) | payer MEDICARE, SELFPAY ==
[2024-03-10] VITALS (18 sets, daily range): BP systolic 130–161; BP diastolic 53–76; PULSE 59–76; RESP 15–26; TEMP 36.7–36.8; O2SAT 88–95; BMI 29.2
--- NOTE | 2024-03-10 09:54 | ECG_ITS ---
[facility] Test Date: 2024-03-10 Pat Name: Chela Rodriguez Department: Room: Gender: Female Av Specialist: : 1945 Requested By: Susanne Deleon Order Number: [id number] Nessa MD: Cristo Chan M.D. Measurements Intervals [place] Rate: 78 P: 66 PA: 197 QRS: 33 QRSD: 79 T: 7 QT: 395 QTc: 450 Interpretive Statements SINUS RHYTHM WITH FREQUENT SUPRAVENTRICULAR PREMATURE COMPLEXES SEPTAL MYOCARDIAL INFARCTION , PROBABLY OLD [40+ ms Q WAVE IN V1/V2] Compared to ECG 11/19/2023 21:42:38 Myocardial infarct finding now present Sinus bradycardia no longer present T-wave abnormality no longer present Possible ischemia no longer present Electronically Signed On 03-11-2024 19:21:58 CDT by Cristo Chan M.D. [id number] f
--- NOTE | 2024-03-10 10:03 | XRR_ITS ---
PROCEDURE INFORMATION: Exam: XR Chest Exam date and time: 03/10/2024 10:27 AM Age: 78 years old Clinical indication: Chest pressure; Prior surgery; Surgery date: 6+ months; Surgery type: Cardiac stent; Patient HX: PT here via EMS with C/O cp that started at 0700. PT took 3 nitro at home, cp resolved. PT oxygen sat was in the 80s upon EMS arrival. PT was given 324 MG of aspirin en route. PT denies chest pain and SOB at this time. PT has a HX of cardiac arrest in sep 2023. TECHNIQUE: Imaging protocol: Radiologic exam of the chest. Views: 1 view. COMPARISON: CT angio chest PE protcl [id number] 11/19/2023 9:20 PM FINDINGS: Lungs: Unremarkable. No consolidation. Pleural spaces: Unremarkable. No pleural effusion. No pneumothorax. Heart/Mediastinum: Cardiomegaly. Vasculature: Aortic arch calcifications. Diaphragm: Elevation of the right hemidiaphragm. Bones/joints: Narrowing of the bilateral subacromial distances consistent with chronic rotator cuff disease. Right rotator cuff calcific tendinosis. Moderate degenerative disease of the left acromioclavicular joint. Widening of the right acromioclavicular joint, to be correlated with prior surgery. Organs: Post cholecystectomy. XR/XR chest 1V portable [id number] IMPRESSION: No acute cardiopulmonary process.
--- NOTE | 2024-03-10 10:20 | W.ED.CHESTPA ---
HPI - Chest Pain General: Chief Complaint: Chest Pain Stated Complaint: CHEST PAIN Time Seen by Provider: 03/10/24 10:03 History of Present Illness: This patient is a 78 year old presenting with chest pain associated with vomiting, diarrhea and shortness of breath. She has a history of a prior NE - which presented with chills, vomiting, shortness of breath but no chest pain. This chest pain was present at 6 am when she woke up and didn't go away until she got 4 baby aspirin by the EMS provider. She took 3 nitro at home without any relief. She is now pain free. She does not use oxygen normally, her PaO2 was 88% on arrival here. She is on a lot of medications - she has not taken anything yet today - and has a very long list of allergies as well. She reports that she has been extremely tired for the past few days and blamed it on having a large family gathering for the holiday and being on her feet a lot. She also has noted increased swelling in her feet and ankles. [facility], LAT[facility] PFSH: Medical History (Updated 03/10/24 @ 13:29 by Susanne Restrepo MD) Diabetes mellitus type 2, controlled Diverticulosis Mesenteric ischemia Hepatomegaly Sleep related hypoxia Paroxysmal atrial fibrillation with RVR Coronary artery disease Latent tuberculosis Completed treatment in 2020 Shingles Immunization counseling Latent tuberculosis by blood test Tenosynovitis of ankle Psoriatic arthritis High risk medication use Peroneal tendinitis of both lower legs Osteoarthritis Rotator cuff arthropathy of right shoulder Psoriasis Surgical History History of eye surgery Removal of scar tissue History of tonsillectomy History of appendectomy History of tubal ligation History of cholecystectomy H/O: hysterectomy Family History Mother Diabetes Hypertension Heart disease Brother Hypertension Sister Hypertension Grandmother Stroke Other Cancer Social History Smoking and tobacco/nicotine status: never used tobacco/nicotine Alcohol intake: never Substance/Drug Use: never Physical Exam Const: COMMON NORMALS: no acute distress, patient oriented x3, no limitations and alert GENERAL APPEARANCE: cooperative and comfortable HENMT: HEAD & SCALP: normal to inspection FACE & SINUS: normal facial exam Eye: GENERAL EYE: appearance normal, both eyes and all related structures Neck/C-Spine: COMMON NORMALS: supple, no meningeal signs and no JVD Chest: COMMONS NORMALS: normal inspection of the chest Resp: COMMON NORMALS: normal respiratory effort, No use of accessory muscles and clear to auscultation bilaterally AUSCULTATION: clear to auscultation bilaterally Cardio: COMMON NORMALS: no JVD, regular rate, regular rhythm and No murmurs present (Cardio) RATE: regular rate RHYTHM: regular rhythm GI: COMMON NORMALS: Normal to inspection, nondistended, normoactive bowel sounds present, Soft to palpation and non-tender INSPECTION: Yes normal to inspection AUSCULTATION: Yes normoactive bowel sounds PALPATION: Yes Soft to palpation Back/Pelvis: COMMON NORMALS: thoracic and lumbar spine normal to inspection Extremity: COMMON NORMALS: normal to inspection NARRATIVE EXTREMITY EXAM: minimal edema feet and ankles, no calf tenderness Neuro: COMMON NORMALS: patient oriented x3, moves all extremities, no focal motor deficits and no sensory deficits noted SENSORIUM/ORIENTATION: Yes alert MENINGEAL SIGNS: Yes no meningeal signs Psych: COMMON NORMALS: mental status grossly normal, cooperative and normal affect Skin: COMMON NORMALS: no rashes or lesions noted and turgor normal GENERAL SKIN EXAM: no rashes or lesions noted and turgor normal Course Vital Signs: Vital signs: Vital Signs Temperature 98.0 F 03/10/24 15:48 Pulse Rate 73 03/10/24 15:48 Respiratory Rate 17 03/10/24 15:48 Blood Pressure 153/76 03/10/24 15:48 Pulse Oximetry 94 03/10/24 15:48 Oxygen Delivery Me thod Nasal Cannula 03/10/24 15:48 Oxygen Flow Rate 3 03/10/24 15:48 MDM - Chest Pain Medical Decision Making History of CAD, presenting with concerning symptoms. She also does still have her gallbladder - but she is not tender in the abdomen or RUQ. She is on multiple blood thinners, and hopefully would not have a PE. Placed on oxygen, monitor. EKG with no acute abnormalities - she has some non specific ST changes that appear similar to prior EKG. Labs, CXR pending. Troponin elevated somewhat but delta trop at 2 hours was negative. Her HEART score is 7 and I will recommend admission for further evaluation. Lab Data 03/10/24 10:18 07/06/24 10:18 Radiology Impressions Chest X-Ray 03/10/24 10:03 IMPRESSION: No acute cardiopulmonary process. Laboratory Results WBC 11.67 10^3/uL (3.29-11.43) H 03/10/24 10:18 RBC 4.07 10^6/uL (3.85-5.65) 03/10/24 10:18 Hgb 12.40 g/dL (11.27-16.99) 03/10/24 10:18 Hct 35.4 % (36-47) L 03/10/24 10:18 MCV 87.0 fl (85-98) 03/10/24 10:18 MCH 30.5 pg (27-33) 03/10/24 10:18 MCHC 35.0 g/dL (30-55) 03/10/24 10:18 RDW 12.6 % (12.1-15.1) 03/10/24 10:18 Plt Count 264 10^3/cmm (157-399) 03/10/24 10:18 MPV 10.3 fL (7.4-10.4) 03/10/24 10:18 Neut % (Auto) 86.3 % 03/10/24 10:18 Lymph % (Auto) 6.1 % 03/10/24 10:18 [place] % (Auto) 6.8 % 03/10/24 10:18 Eos % (Auto) 0.0 % 03/10/24 10:18 Baso % (Auto) 0.3 % 03/10/24 10:18 Neut # (Auto) 10.07 10^3/uL (1.8-7.7) H 03/10/24 10:18 Lymph # (Auto) 0.7 10^3/uL (0.8-4.8) L 03/10/24 10:18 [place] # (Auto) 0.8 10^3/uL (0.2-0.9) 03/10/24 10:18 Eos # (Auto) 0.0 10^3/uL (0.0-0.8) 03/10/24 10:18 Baso # (Auto) 0.0 10^3/uL (0.0-0.1) 03/10/24 10:18 Nucleated RBC % (auto) 0 % 03/10/24 10:18 Nucleated RBCs # 0.0 /100WBC 03/10/24 10:18 Sodium 133 mmol/L (136-145) L 03/10/24 10:18 Potassium 3.8 mmol/L (3.5-5.1) 03/10/24 10:18 Chloride 95 mmol/L (98-107) L 03/10/24 10:18 Carbon Dioxide 27 mmol/L (22-29) 03/10/24 10:18 Anion Gap 14.8 (5-19) 03/10/24 10:18 BUN 15 mg/dL (8-23) 03/10/24 10:18 Creatinine 0.7 mg/dL (0.5-0.9) 03/10/24 10:18 GFR Calculation Not Reportable 03/10/24 10:18 Glucose 225 mg/dL (65-115) H 03/10/24 10:18 Calculated Osmolality 284 mOsm/kg (285-295) L 03/10/24 10:18 Calcium 9.5 mg/dL (8.5-10.5) 03/10/24 10:18 Total Bilirubin 1.5 mg/dL (0.15-1.2) H 03/10/24 10:18 AST 10 U/L (0-32) 03/10/24 10:18 ALT 11 U/L (0-33) 03/10/24 10:18 Alkaline Phosphatase 58 U/L (35-105) 03/10/24 10:18 Troponin T Baseline 33 ng/L (0-10) H 03/10/24 10:18 Troponin T 120 Minute 32.12 ng/L (0-10) H 03/10/24 12:09 Delta Troponin T -0.88 ABS# (0-10) L 03/10/24 12:09 NT-Pro-B Natriuret Pep 1995 pg/mL (0-450) H 03/10/24 10:18 Total Protein 7.3 g/dL (6.6-8.7) 03/10/24 10:18 Albumin 4.1 g/dL (3.5-5.2) 03/10/24 10:18 Globulin 3.2 g/dL (1.3-4.6) 03/10/24 10:18 All radiology interpretation(s) finalized by discharge Discharge Plan Discharge Patient Disposition: Placed in Observation Admit Provider: Carlos Jones Clinical Impression: Hypoxia, CHF (congestive heart failure), Environmental and seasonal allergies Chest pain Qualifiers: Chest pain type: precordial pain Qualified Code(s): R07.2 - Precordial pain Coding Level of Care Code ED Integrated Specialist for Jan Tran
[2024-03-10 10:26] LABS: Basophils % 0.3 %; Hematocrit 35.4 % (36-47); Lymphocytes # 0.7 10^3/uL (0.8-4.8); Lymphocytes % 6.1 %; Mean Corpuscular Hemoglobin 30.5 pg (27-33); Mean Platelet Volume 10.3 fL (7.4-10.4); Monocytes # 0.8 10^3/uL (0.2-0.9); Monocytes % 6.8 %; Neutrophils # 10.07 10^3/uL (1.8-7.7); Neutrophils % 86.3 %; Nucleated Red Blood Cells % 0 %; Platelet Count 264 10^3/cmm (157-399); Red Blood Count 4.07 10^6/uL (3.85-5.65); Red Cell Distribution Width 12.6 % (12.1-15.1); White Blood Count 11.67 10^3/uL (3.29-11.43)
[2024-03-10 10:50] LABS: Troponin(5th) Baseline 33 ng/L (0-10)
[2024-03-10 10:54] LABS: Alanine Aminotransferase 11 U/L (0-33); Albumin Level 4.1 g/dL (3.5-5.2); Alkaline Phosphatase 58 U/L (35-105); Anion Gap 14.8 (5-19); Aspartate Amino Transferase 10 U/L (0-32); Blood Urea Nitrogen 15 mg/dL (8-23); Calcium 9.5 mg/dL (8.5-10.5); Carbon Dioxide 27 mmol/L (22-29); Chloride 95 mmol/L (98-107); Creatinine Clr Calc Pharmacy 54.9352; Globulin 3.2 g/dL (1.3-4.6); Glucose 225 mg/dL (65-115); NT Pro B Type Natriuretic Pept 1995 pg/mL (0-450); Osmolality Calculated 284 mOsm/kg (285-295); Potassium 3.8 mmol/L (3.5-5.1); Sodium 133 mmol/L (136-145); Total Bilirubin 1.5 mg/dL (0.15-1.2); Total Protein 7.3 g/dL (6.6-8.7)
--- NOTE | 2024-03-10 12:07 | ECG_ITS ---
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 Measurements Intervals [place] Rate: 58 P: 0 NV: 0 QRS: 15 QRSD: 89 T: 5 QT: 424 QTc: 419 Interpretive Statements ATRIAL FIBRILLATION WITH SLOW VENTRICULAR RESPONSE LOW QRS VOLTAGE IN PRECORDIAL LEADS [QRS DEFLECTION < 1.0 mV IN CHEST LEADS] NONSPECIFIC T-WAVE ABNORMALITY Compared to ECG 03/10/2024 09:54:04 Low QRS voltage now present T-wave abnormality now present Sinus rhythm no longer present Myocardial infarct finding no longer present Electronically Signed On 03-11-2024 19:31:46 CDT by Cristo Chan M.D. [email or web address].[employer]/store/OM/[id number]
[2024-03-10 12:33] LABS: Troponin 5 2HR 32.12 ng/L (0-10)
[2024-03-10 13:02] LABS: Troponin 5 2HR Delta -0.88 ABS# (0-10)
--- NOTE | 2024-03-10 14:23 | P.HP_ITS ---
Providers/Chief Complaint 2 Admitting Physician: Carlos Jones MD Primary Care Provider: Devon Walton MD Chief Complaint: CHEST PAIN History of Present Illness Chela Rodriguez is a 78 year old female w hx Of coronary disease status post stent this year in September, history of renal artery stenosis was recommended to follow-up with vascular surgeon in [place], presented today with chief complaint of chest pain. Patient stating that she woke up with chest pain this morning. Patient is stating that she remained in chest pain until EMS put her on oxygen, she did not respond to nitroglycerin. Patient is stating that she is mostly anxious. She has been taking aspirin Plavix and Eliquis. Patient is stating that she was put on Eliquis because she was at high risk for stroke for her A- fib. However she kept taking aspirin and Plavix as well. She has noticed dark loose stool but not lately. She has not noticed any shortness of breath however symptoms improved with oxygen. She is not endorsing orthopnea PND. Does not use oxygen at home At the time of evaluation she has white count 11.6, hemoglobin 12, she did not have any chest pain asking for some anxiolytics. Patient is stating that she is think about leaving AMA because she does not do well in the hospital and she is allergic to most of the perfumes and disinfectants She is describing the chest pain as achy in nature, diffuse, nonradiating, lasting more than 30 minutes. Review of Systems 2 Const: Denies: fever(s) Eyes: Denies: change in vision ENMT: Denies: throat pain Card: Denies: chest pain Resp: Denies: dyspnea GI: Denies: abdominal pain Medications/Allergies Home Medications Medication Instructions Recorded Confirmed Last Taken Type cetirizine 10 mg tablet (Zyrtec) 5 mg PO DAILY 09/04/19 02/23/24 10/14/23 History hydrocodone 7.5 mg-acetaminophen 1 - 2 tab PO Q6H PRN Pain 09/04/19 02/23/24 10/14/23 History 325 mg tablet syringe with needle 1 mL 25 gauge #50 ea 12/29/22 02/23/24 Unknown Rx x 5/8 (Monoject TB Safety Syringe) prednisone 10 mg tablet See Rx Instructions PO .COMPLEX 08/09/23 02/23/24 Unknown Rx PRN joint pain #30 tabs furosemide 40 mg tablet 40 mg PO BID 10/01/23 02/23/24 10/14/23 History potassium chloride 20 mEq 20 meq PO DAILY 10/01/23 02/23/24 10/14/23 History tablet,extended release(part/cryst) spironolactone 25 mg tablet 25 mg PO DAILY 10/01/23 02/23/24 10/14/23 History aspirin 81 mg tablet,delayed 81 mg PO DAILY #90 tabs 10/07/23 02/23/24 10/14/23 Rx release loperamide 2 mg capsule 2 mg PO QID PRN Diarrhea #30 caps 10/07/23 02/23/24 Unknown Rx nitroglycerin 0.4 mg sublingual 0.4 mg sublingual Q5M PRN Chest 10/07/23 02/23/24 Unknown Rx tablet Pain #25 tabs metoprolol tartrate 25 mg tablet 12.5 mg (1/2 x 25 mg) PO BID #30 10/13/23 02/23/24 10/14/23 Rx tabs amiodarone 200 mg tablet (Pacerone) 100 mg (1/2 x 200 mg) PO DAILY #30 11/11/23 02/23/24 Unknown Rx tabs amlodipine 10 mg tablet 10 mg PO DAILY #90 tabs 12/28/23 02/23/24 Unknown Rx apixaban 2.5 mg tablet (Eliquis) 2.5 mg PO BID #60 tabs 12/28/23 02/23/24 Unknown Rx isosorbide mononitrate 30 mg 30 mg PO BID #180 tabs 12/28/23 02/23/24 Unknown Rx tablet,extended release 24 hr clopidogrel 75 mg tablet 75 mg PO DAILY #90 tabs 01/05/24 02/23/24 Unknown Rx blood sugar diagnostic (OneTouch #100 ea 02/23/24 02/23/24 Unknown Rx Verio test strips) gabapentin 600 mg tablet 600 mg PO TID #90 tabs 02/23/24 02/23/24 Unknown Rx metformin 500 mg tablet,extended 1,000 mg (2 x 500 mg) PO QAM #180 02/23/24 02/23/24 Unknown Rx release 24 hr tabs Allergies Allergy/AdvReac Type Severity Reaction Status Date / Time RON Inhibitors Allergy Angioedema Verified 03/10/24 10:16 diltiazem [From Cardizem] Allergy unknown Verified 03/10/24 10:16 lovastatin Allergy bone and Verified 03/10/24 10:16 muscle pain meperidine [From Demerol] Allergy itching Verified 03/10/24 10:16 methadone Allergy unknown Verified 03/10/24 10:16 pentazocine [From Talwin] Allergy nausea, Verified 03/10/24 10:16 vomiting alendronate sodium AdvReac Intermediate swelling Verified 03/10/24 10:16 [From Fosamax] codeine AdvReac Intermediate headache Verified 03/10/24 10:16 erythromycin base AdvReac Intermediate Unknown Verified 03/10/24 10:16 losartan AdvReac Intermediate dizzy Verified 03/10/24 10:16 methotrexate AdvReac Intermediate nausea/ Verified 03/10/24 10:16 diarrhea pravastatin [From Pravachol] AdvReac Intermediate cramps Verified 03/10/24 10:16 PFSH Acute 2 PFSH: Medical History Diabetes mellitus type 2, controlled Diverticulosis Mesenteric ischemia Hepatomegaly Sleep related hypoxia Paroxysmal atrial fibrillation with RVR Coronary artery disease Latent tuberculosis Completed treatment in 2020 Shingles Immunization counseling Latent tuberculosis by blood test Tenosynovitis of ankle Psoriatic arthritis High risk medication use Peroneal tendinitis of both lower legs Osteoarthritis Rotator cuff arthropathy of right shoulder Psoriasis Surgical History History of eye surgery Removal of scar tissue History of tonsillectomy History of appendectomy History of tubal ligation History of cholecystectomy H/O: hysterectomy Family History Mother Diabetes Hypertension Heart disease Brother Hypertension Sister Hypertension Grandmother Stroke Other Cancer Social History Smoking and tobacco/nicotine status: never used tobacco/nicotine Alcohol intake: never Substance/Drug Use: never Vitals/I&O/Wt Last Vital Signs Temp 98.3 F 03/10/24 09:56 Pulse 73 03/10/24 14:00 Resp 19 H 03/10/24 14:00 BP 159/62 03/10/24 14:00 Pulse Ox 93 03/10/24 14:00 O2 Del Method Nasal Cannula 03/10/24 14:00 O2 Flow Rate 3 03/10/24 14:00 Weight last 48 hrs Weight 72.575 kg Physical Exam 2 Narrative: Awake and alert Euvolemic Mild crackles to left greater than right Currently on 3 L Nonfocal neuroexam GCS 15 No active chest pain Pleasant cooperative Sitting at the bedside Data 03/10/24 10:18 03/10/24 10:18 A&P Assessment and plan (1) Renal artery stenosis: (2) Left ventricular systolic dysfunction (LVSD): (3) Congestive heart failure: Qualifiers: Heart failure type: combined systolic and diastolic Heart failure chronicity: acute Qualified Code(s): I50.41 - Acute combined systolic (congestive) and diastolic (congestive) heart failure (4) Unstable angina: (5) Atrial fibrillation: (6) Hypoxia: Plan Acute hypoxia related to CHF exacerbation History of ischemic cardiomyopathy EF 34% Unstable angina today which improved with oxygen No active chest pain Trend troponin with EKGs Will need home oxygen evaluation Continue DuoNeb No active pneumonia on chest x-ray Renal artery stenosis medical management for now, has a follow-up with vascular surgeon at [place] Coronary disease status post stent this year continue Plavix with Eliquis I will discontinue aspirin Black tarry stool hemoglobin stable patient has been noticing black stool but not lately. Anxiety: Will give her anxiolytic DVT prophylaxis covered with low-dose Eliquis. Systolic CHF mild exacerbation At home takes 80 mg of Lasix I will give her IV 40 mg Lasix in the morning Full code Cardiac consistent carb diet Attestations 2 Medical Necessity Statement*: Anticipating discharge within 48 hours Diagnoses Renal artery stenosis I70.1 Left ventricular systolic dysfunction (LVSD) I51.9 Acute combined systolic and diastolic congestive heart failure I50.41 Heart failure type: combined systolic and diastolic Heart failure chronicity: acute Unstable angina I20.0 Atrial fibrillation I48.91 Hypoxia R09.02
--- NOTE | 2024-03-10 16:03 | ECG_ITS ---
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 Measurements Intervals [place] Rate: 74 P: 74 HI: 181 QRS: 33 QRSD: 83 T: 1 QT: 409 QTc: 456 Interpretive Statements ATRIAL FIBRILLATION SEPTAL MYOCARDIAL INFARCTION , PROBABLY OLD [40+ ms Q WAVE IN V1/V2] Electronically Signed On 03-11-2024 19:30:47 CDT by Cristo Chan M.D. [email or web address] hospitalDataWare Ventures/store/OM/[id number]
--- NOTE | 2024-03-10 16:11 | PC.NURSE ---
Patient arrived from the ER via stretcher. Patient is stable and remains chest pain free. Patient states that she is allergic to a lot of things, including perfumes, bicycle assembler, and hospital laundry detergent. Patient has brought in her own linens including sheets, pillow cases, gowns, blankets, and briefs. Patient says however that she is able to use our turn sheet and pink pads.. Patient also brought her own aquaphor for rashes. Patient is alert and oriented. Patient is oriented too room and use of call waters. Nurse will continue to monitor.
[2024-03-10] MEDS: apixaban 5 mg Tablet 2.5 MG PO (18:24)
[2024-03-10] MEDS: isosorbide mononitrate ER 30 mg Tablet PO (18:24)
[2024-03-10 19:43] LABS: D Dimer 2.04 ug/mLFEU (0-0.59)
[2024-03-10 19:44] LABS: Troponin 5 6HR 36.22 ng/L (0-10); Troponin 5 6HR Delta 3.22 ng/L (0-12)
--- NOTE | 2024-03-11 01:25 | PC.NURSE ---
Addendum entered by Juliana Sung RN 03/11/24 01:35: Actual time for this note and event 03/10/24 20:35 Original Note: AMA Patient stated that she was very agitated about not having her home medication and her xanax and that she wanted to leave AMA. THis nurse explained to patient that xanax had been pulled and ready to administer. Patient stated you can go ahead and give it to me but I am still leaving, my daughter is picking me up. This nurse and charge nurse both spoke with patient regarding her medications and asking if there was anything we could do to deescalate situation and educated patient about the risks of leaving AMA. Patient stated that she was agitated because hospital no longer has 24hr in house pharmacy and that she had dealt with this before. This nurse asked patient if talking with the hospitalist would help her decide to rethink decision of leaving AMA. Patient refused stating it would do no good she was leaving regardless. Dr. Singh notified, AMA form signed, IV access removed. Patient left via wheelchair with all personal belongings to personal vehicle with daughter.
== END 2024-03-10 20:35 | disposition left against medical advice (07) ==
LOC: ER 13:29 → MEDSURG 14:12
PROVIDERS: Admitting Provider Internal Medicine; Emergency Provider Emergency Medicine; PCP Family Medicine; Visit Provider Internal Medicine
DX: R07.9 Chest pain, unspecified (principal); Z79.01 Long term (current) use of anticoagulants; Z79.82 Long term (current) use of aspirin; Z79.02 Long term (current) use of antithrombotics/antiplatelets; E11.9 Type 2 diabetes mellitus without complications; Z79.84 Long term (current) use of oral hypoglycemic drugs; I48.0 Paroxysmal atrial fibrillation; M19.90 Unspecified osteoarthritis, unspecified site; I50.41 Acute combined systolic (congestive) and diastolic (congestive) heart failure; I25.110 Atherosclerotic heart disease of native coronary artery with unstable angina pectoris; F41.9 Anxiety disorder, unspecified; I70.1 Atherosclerosis of renal artery
CPT/HCPCS: 36415; 71045; 80053; 83880; 84484; 85025; 85378; 93005; 99285; G0378

== ENCOUNTER 2024-04-03 14:48 | Outpatient (CLI) | payer MEDICARE, SELFPAY ==
--- NOTE | 2024-04-03 15:15 | USCV_ITS ---
Chela Rodriguez Age: 78 Gender: F : 1945 Exam Date: 04/03/2024 15:11 Ordering Phys: Devon Walton MD Technologist: CT [place]am [place] [facility] [place] Ind[place]: cad,cp BP: 162 / 80 HR: 57 Rhythm: Sinus Technical Quality: Adequate MEASUREMENTS (Male / Female) Normal Values 2D ECHO LVOT Diameter 2.0 cm LV Ejection Fraction MOD 4C 57.8 % LV Ejection Fraction MOD 2C 56.0 % LV Ejection Fraction 2C AL 56.4 % LA Diameter 4.4 cm RA Systolic Volume 4C AL 33.9 ml RA Systolic Volume 4C MOD 35.6 ml LA Sys Volume AL 128.4 cm cubed LA Sys Volume Index AL 70.8 cm cubed/m squared Aorta at Sinotubular Diameter 2.7 cm IVC Diameter 1.9 cm M-MODE LA Ao Ratio MM 1.8 AV Cusp Separation MM 1.6 cm DOPPLER AV Peak Velocity 134.0 cm/s LVOT Peak Velocity 96.0 cm/s AV Area Cont Eq vti 2.2 cm squared AV Area Cont Eq pk 2.3 cm squared MV Peak Velocity 140.0 cm/s MV Area PHT 3.8 cm squared Mitral E to A Ratio 2.3 TV Peak Velocity 297.8 cm/s TR Peak Velocity 302.0 cm/s TR Peak Gradient 36.5 mmHg TR Mean Velocity 225.0 cm/s TR Mean Gradient 22.5 mmHg TR Velocity Time Integral 86.4 cm TV Peak E Velocity 104.0 cm/s Right Atrial Pressure 3.0 mmHg Pulmonary Artery Systolic Pressu 39.5 mmHg PV Peak Velocity 121.5 cm/s FINDINGS Left Ventricle Normal left ventricular size and systolic function, EF58%. No regional wall motion abnormalities. Grade III/IV diastolic dysfunction (restrictive filling pattern), severely elevated filling pressures. Right Ventricle The right ventricle is normal in size and function. Right Atrium The right atrium is normal in size. Left Atrium Moderately increased left atrial size. Mitral Valve Moderate mitral annular calcification. Thickened mitral valve. Mild-moderate mitral valve regurgitation. Aortic Valve Thickened aortic valve. Tricuspid Valve Trace to mild tricuspid valve regurgitation. Pulmonic Valve No gross abnormalities noted Pericardium Normal pericardium without effusion. Aorta Normal ascending aorta dimension. IVC Normal inferior vena cava. CONCLUSIONS Normal left ventricular size and systolic function, EF 58%. No regional wall motion abnormalities. Grade III/IV diastolic dysfunction (restrictive filling pattern), severely elevated filling pressures. The right ventricle is normal in size and function. Moderately increased left atrial size. Moderate mitral annular calcification. Thickened mitral valve. Mild-moderate mitral valve regurgitation. Trace to mild tricuspid valve regurgitation. There is no pericardial effusion. There are no intracardiac masses. Compared to the study from 10/01/2023, there is significant improvement in the LV ejection fraction Dr Jade Vargas MD [facility] (Electronically Signed) Final Date: 04 April 2024 00:37 S
== END 2024-04-03 14:49 | disposition home or self-care (01) ==
LOC: RAD 14:49
PROVIDERS: PCP Family Medicine; Visit Provider Family Medicine
DX: R07.9 Chest pain, unspecified (principal); I25.10 Atherosclerotic heart disease of native coronary artery without angina pectoris; I08.1 Rheumatic disorders of both mitral and tricuspid valves
CPT/HCPCS: 93306

== ENCOUNTER → 2024-04-11 11:17 | Outpatient (BNVA) | payer MEDICARE, SELFPAY | PROVIDERS: PCP Family Medicine; Visit Provider Internal Medicine Rheumatology | DX: L40.50 Arthropathic psoriasis, unspecified (principal); M15.4 Erosive (osteo)arthritis; L40.0 Psoriasis vulgaris; R74.01 Elevation of levels of liver transaminase levels; Z71.85 Encounter for immunization safety counseling; M85.80 Other specified disorders of bone density and structure, unspecified site | CPT/HCPCS: 99214 ==

== ENCOUNTER → 2024-05-14 08:30 | Outpatient (BNVA) | payer MEDICARE, SELFPAY | PROVIDERS: PCP Family Medicine; Visit Provider Internal Medicine | DX: E01.0 Iodine-deficiency related diffuse (endemic) goiter (principal); L65.9 Nonscarring hair loss, unspecified; E78.5 Hyperlipidemia, unspecified; I50.9 Heart failure, unspecified; Z79.899 Other long term (current) drug therapy; Z79.84 Long term (current) use of oral hypoglycemic drugs | CPT/HCPCS: 36415; 80053; 80061; 82627; 83036; 84403; 86376; 86800; 99204 ==

== ENCOUNTER 2024-06-07 06:09 | Outpatient (CLI) | payer MEDICARE, SELFPAY ==
--- NOTE | 2024-06-07 06:15 | US_ITS ---
WS: [id number] THYROID ULTRASOUND HISTORY: thyroid nodule COMPARISON: 01/26/2017 Right lobe: 1.6 cm x 1.5 cm x 5.3 cm (w x ap x l). Volume: 5.9 cm3. Mildly enlarged but very heterogeneous RIGHT thyroid. There is a large mass with increased vascularit y with a large amount of cystic component in the mid to lower gland. Mass measures 2.2 x 2.0 x 2.7 cm . There are few small echogenic foci. This mass has been present on multiple prior years. Not signifi cantly increasing in size. Left lobe: 1.3 cm x 2.5 cm x 6.5 cm (w x ap x l). Volume: 9.8 cm3. Mildly enlarged thyroid. Reidentified is a solid mildly hypoechoic mass in the lower pole measuring 2 .0 x 2.1 x 2.5 cm. Mild increased vascularity. The margins of this mass are very slightly lobulated. No extrathyroidal extension. This mass has been present on prior exams. Not significantly changing in size. Isthmus: 0.8 cm. Enlarged heterogeneous isthmus. US/US thyroid [id number] IMPRESSION: 1. TI-RADS 4; solid mass in the lower pole LEFT thyroid lobe. This mass has be en stable since at least 2015. Due to the stability biopsy is probably not nece ssary. Cannot exclude a low-grade neoplasm. 2. Stable predominantly cystic mass involving a large portion of the RIGHT thy roid. Spongiform in appearance. Also stable long-term.
== END 2024-06-07 06:10 | disposition home or self-care (01) ==
LOC: RAD 06:10
PROVIDERS: PCP Family Medicine; Visit Provider Internal Medicine
DX: E01.0 Iodine-deficiency related diffuse (endemic) goiter (principal)
CPT/HCPCS: 76536

== ENCOUNTER 2024-07-21 14:32 | Emergency (ER) | payer MEDICARE, SELFPAY ==
[2024-07-21] VITALS (12 sets, daily range): BP systolic 125–157; BP diastolic 67–100; PULSE 85–155; RESP 14–26; O2SAT 94–97; BMI 29.6
--- NOTE | 2024-07-21 14:44 | XRR_ITS ---
PROCEDURE INFORMATION: Exam: XR Chest Exam date and time: 07/21/2024 2:51 PM Age: 78 years old Clinical indication: Cardiovascular condition or disease; Atrial fibrillation; Prior surgery; Surgery date: 6+ months; Surgery type: Cardiac stent x 1; Patient HX: Bradycardia; Afib; Weakness TECHNIQUE: Imaging protocol: Radiologic exam of the chest. Views: 1 view. COMPARISON: CR XR chest 1V portable [id number] 03/10/2024 10:27 AM FINDINGS: Lungs: Unremarkable. No consolidation. Pleural spaces: Unremarkable. No pleural effusion. No pneumothorax. Heart/Mediastinum: Unremarkable. No cardiomegaly. Bones/joints: Unremarkable. XR/XR chest 1V portable [id number] IMPRESSION: No acute findings.
--- NOTE | 2024-07-21 14:45 | ECG_ITS ---
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 Measurements Intervals [place] Rate: 123 P: -65 NV: 145 QRS: 8 QRSD: 88 T: 5 QT: 345 QTc: 494 Interpretive Statements Atrial fibrillation with occasional PVCs LOW QRS VOLTAGE IN PRECORDIAL LEADS [QRS DEFLECTION < 1.0 mV IN CHEST LEADS] POSSIBLE ANTERIOR MYOCARDIAL INFARCTION , PROBABLY OLD [30 ms Q WAVE IN V3/V4, OR R < 0.2 mV IN V4] ABNORMAL RHYTHM ECG Compared to ECG 03/10/2024 15:55:45 Low QRS voltage now present Atrial fibrillation no longer present Myocardial infarct finding still present Electronically Signed On 07-21-2024 15:51:45 COOKER CASING by Jade Vargas M.D. [id number]
--- NOTE | 2024-07-21 14:53 | ED_ITS ---
HPI - Arrhythmia/Palpitations 2 General: Chief Complaint: Arrhythmia/Palpitations Stated Complaint: LOW HR, WEAKNESS Time Seen by Provider: 07/21/24 14:35 History of Present Illness: Patient presents to the ER in [facility] with her heart rate in 150s. Patient called EMS when she put her oxygen sensor on and noted her heart rate was in the 30s. She says is in the 30s for about an hour. Patient did take 3 and 25 mg aspirin and 2 sublingual nitro at home for EMS came. Patient denies any shortness of breath chest pain diaphoresis nausea or vomiting. Patient does have a extreme sensitivity to diltiazem and beta-blockers. Patient is on amiodarone for her A- fib as well as Eliquis and Plavix. Related Data Home Medications Medication Instructions Recorded Confirmed cetirizine 10 mg tablet (Zyrtec) 5 mg PO DAILY 09/04/19 07/05/24 hydrocodone 7.5 mg-acetaminophen 1 - 2 tab PO Q6H PRN Pain 09/04/19 07/05/24 325 mg tablet furosemide 40 mg tablet 40 mg PO BID 10/01/23 07/05/24 potassium chloride 20 mEq 20 meq PO DAILY 10/01/23 07/05/24 tablet,extended release(part/cryst) Previous Rx's Medication Instructions Recorded aspirin 81 mg tablet,delayed 81 mg PO DAILY #90 tabs 10/07/23 release loperamide 2 mg capsule 2 mg PO QID PRN Diarrhea #30 caps 10/07/23 nitroglycerin 0.4 mg sublingual 0.4 mg sublingual Q5M PRN Chest 10/07/23 tablet Pain #25 tabs amiodarone 200 mg tablet (Pacerone) 100 mg (1/2 x 200 mg) PO DAILY #30 11/11/23 tabs amlodipine 10 mg tablet 10 mg PO DAILY #90 tabs 12/28/23 isosorbide mononitrate 30 mg 30 mg PO BID #180 tabs 12/28/23 tablet,extended release 24 hr clopidogrel 75 mg tablet 75 mg PO DAILY #90 tabs 01/05/24 blood sugar diagnostic (OneTouch #100 ea 02/23/24 Verio test strips) gabapentin 600 mg tablet 600 mg PO TID #90 tabs 02/23/24 metformin 500 mg tablet,extended 1,000 mg (2 x 500 mg) PO QAM #180 02/23/24 release 24 hr tabs auto titrating c-pap 6-14 #1 ea 04/11/24 tofacitinib 5 mg tablet (Xeljanz) 5 mg PO BID #60 tabs 04/11/24 spironolactone 25 mg tablet See Rx Instructions .Route 05/11/24 .COMPLEX #90 tabs evolocumab 140 mg/mL subcutaneous 140 mg SUBCUT .[id number] #2 mL 05/14/24 pen injector (Repatha SureClick) apixaban 2.5 mg tablet (Eliquis) 2.5 mg PO BID #60 tabs 06/13/24 Allergies Allergy/AdvReac Type Severity Reaction Status Date / Time RON Inhibitors Allergy Angioedema Verified 05/24/24 10:37 diltiazem [From Cardizem] Allergy unknown Verified 05/24/24 10:37 lovastatin Allergy bone and Verified 05/24/24 10:37 muscle pain meperidine [From Demerol] Allergy itching Verified 05/24/24 10:37 methadone Allergy unknown Verified 05/24/24 10:37 pentazocine [From Talwin] Allergy nausea, Verified 05/24/24 10:37 vomiting alendronate sodium AdvReac Intermediate swelling Verified 05/24/24 10:37 [From Fosamax] codeine AdvReac Intermediate headache Verified 05/24/24 10:37 erythromycin base AdvReac Intermediate Unknown Verified 05/24/24 10:37 losartan AdvReac Intermediate dizzy Verified 05/24/24 10:37 methotrexate AdvReac Intermediate nausea/ Verified 05/24/24 10:37 diarrhea pravastatin [From Pravachol] AdvReac Intermediate cramps Verified 05/24/24 10:37 Review of Systems 2 General: Reports: 10 or more systems reviewed and unremarkable except in HPI and below PFSH ED 2 PFSH: Medical History Obstructive sleep apnea Diabetes mellitus type 2, controlled Diverticulosis Mesenteric ischemia Hepatomegaly Sleep related hypoxia Paroxysmal atrial fibrillation with RVR Coronary artery disease Latent tuberculosis Completed treatment in 2020 Shingles Immunization counseling Latent tuberculosis by blood test Tenosynovitis of ankle Psoriatic arthritis High risk medication use Peroneal tendinitis of both lower legs Osteoarthritis Rotator cuff arthropathy of right shoulder Psoriasis Surgical History History of eye surgery Removal of scar tissue History of tonsillectomy History of appendectomy History of tubal ligation History of cholecystectomy H/O: hysterectomy Family History Mother Diabetes Hypertension Heart disease Brother Hypertension Sister Hypertension Grandmother Stroke Other Cancer Social History Smoking and tobacco/nicotine status: never used tobacco/nicotine Alcohol intake: never Substance/Drug Use: never Physical Exam 2 Const: COMMON NORMALS: no acute distress, average body habitus, patient oriented x3, no limitations, healthy appearing, alert and well nourished HENMT: COMMON NORMALS: normocephalic, atraumatic, hearing grossly normal bilaterally, external ears normal, Normal external nose present and moist oral mucous membranes HEAD & SCALP: normocephalic and atraumatic NOSE: Normal external nose present EXTERNAL EAR: Yes external ears normal Neck/C-Spine: COMMON NORMALS: full ROM, no lymphadenopathy, supple, no meningeal signs, no JVD and Thyroid normal THYROID: Thyroid normal Chest: COMMONS NORMALS: normal inspection of the chest and normal palpation of entire chest wall Resp: COMMON NORMALS: normal respiratory effort, No retractions, No use of accessory muscles and clear to auscultation bilaterally AUSCULTATION: clear to auscultation bilaterally Cardio: COMMON NORMALS: no JVD, S1 normal heart sound present, S2 normal heart sound present, No gallops present (Cardio), No clicks present (Cardio), No murmurs present (Cardio) and No rub (Cardio); negative for regular rhythm (Irregularly irregular rhythm) RHYTHM: abnormal rhythm (Irregularly irregular rhythm) HEART SOUNDS: S1 normal heart sound present and S2 normal heart sound present GI: COMMON NORMALS: Normal to inspection, nondistended, normoactive bowel sounds present, Soft to palpation, non-tender, No hepatosplenomegaly present and no masses PALPATION: Yes Soft to palpation and Yes No hepatosplenomegaly present Neuro: COMMON NORMALS: patient oriented x3 SENSORIUM/ORIENTATION: Yes alert MENINGEAL SIGNS: Yes no meningeal signs Course 2 Vital Signs: Vital signs: Vital Signs Pulse Rate 141 H 07/21/24 17:30 Respiratory Rate 14 07/21/24 17:30 Blood Pressure 127/88 07/21/24 17:30 Pulse Oximetry 96 07/21/24 17:30 MDM - Arrhythmia/Palpitations Medical Decision Making Patient lab work and chest x-ray is EKG is is all essentially unremarkable. Patient would not allow us to give her any beta-blockers, she is already on amiodarone, and allergic to diltiazem, and came right down to it patient said this is her standard A-fib and she will make an appointment with Naa Cobb on Tuesday morning I did not want to do anything other than discharge her. Medical Records I reviewed the patient's medical records. Lab Data I reviewed the patient's lab results. 07/21/24 14:29 07/21/24 14:29 Radiology Impressions Chest X-Ray 07/21/24 14:44 IMPRESSION: No acute findings. Laboratory Results WBC 5.92 10^3/uL (3.29-11.43) 07/21/24 14:29 RBC 5.21 10^6/uL (3.85-5.65) 07/21/24 14:29 Hgb 15.30 g/dL (11.27-16.99) 07/21/24 14:29 Hct 44.0 % (36-47) 07/21/24 14:29 MCV 84.5 fl (85-98) L 07/21/24 14:29 MCH 29.4 pg (27-33) 07/21/24 14:29 MCHC 34.8 g/dL (30-55) 07/21/24 14:29 RDW 12.2 % (12.1-15.1) 07/21/24 14:29 Plt Count 347 10^3/cmm (157-399) 07/21/24 14:29 MPV 10.6 fL (7.4-10.4) H 07/21/24 14:29 Neut % (Auto) 57.4 % 07/21/24 14:29 Lymph % (Auto) 27.9 % 07/21/24 14:29 [place] % (Auto) 7.8 % 07/21/24 14:29 Eos % (Auto) 5.6 % 07/21/24 14:29 Baso % (Auto) 0.8 % 07/21/24 14: Neut # (Auto) 3.40 10^3/uL (1.8-7.7) 07/21/24 14: Lymph # (Auto) 1.7 10^3/uL (0.8-4.8) 07/21/24 14:29 [place] # (Auto) 0.5 10^3/uL (0.2-0.9) 07/21/24 14: Eos # (Auto) 0.3 10^3/uL (0.0-0.8) 07/21/24 14: Baso # (Auto) 0.1 10^3/uL (0.0-0.1) 07/21/24 14: Nucleated RBC % (auto) 0 % 07/21/24 14: Nucleated RBCs # 0.0 /100WBC 07/21/24 14: PT 15.80 SECONDS (12.1-14.9) H 07/21/24 16:38 INR 1.22 (0.8-1.2) H 07/21/24 16:38 Sodium 135 mmol/L (136-145) L 07/21/24 14:29 Potassium 3.5 mmol/L (3.5-5.1) 07/21/24 14:29 Chloride 92 mmol/L (98-107) L 07/21/24 14:29 Carbon Dioxide 28 mmol/L (22-29) 07/21/24 14:29 Anion Gap 18.5 (5-19) 07/21/24 14:29 BUN 17 mg/dL (8-23) 07/21/24 14:29 Creatinine 0.8 mg/dL (0.5-0.9) 07/21/24 14:29 GFR Calculation Not Reportable 07/21/24 14:29 Glucose 160 mg/dL (65-115) H 07/21/24 14:29 Calculated Osmolality 285 mOsm/kg (285-295) 07/21/24 14:29 Calcium 10.0 mg/dL (8.5-10.5) 07/21/24 14:29 Magnesium 2.0 mg/dL (1.7-2.3) 07/21/24 14:29 Total Bilirubin 0.9 mg/dL (0.15-1.2) 07/21/24 14:29 AST 16 U/L (0-32) 07/21/24 14:29 ALT 12 U/L (0-33) 07/21/24 14:29 Alkaline Phosphatase 85 U/L (35-105) 07/21/24 14:29 Troponin T Baseline 28 ng/L (0-10) H 07/21/24 14:29 Troponin T 120 Minute 25.64 ng/L (0-10) H 07/21/24 16:38 Delta Troponin T -2.36 ABS# (0-10) L 07/21/24 16:38 Total Protein 8.2 g/dL (6.6-8.7) 07/21/24 14:29 Albumin 4.8 g/dL (3.5-5.2) 07/21/24 14:29 Globulin 3.4 g/dL (1.3-4.6) 07/21/24 14:29 Urine Color Yellow (Yellow) 07/21/24 16:57 Urine Appearance Clear (CLEAR) 07/21/24 16:57 Urine pH 5.5 (5-7) 07/21/24 16:57 Ur Specific [place] 1.013 (1.005-1.030) 07/21/24 16:57 Urine Protein 1+ (Negative) A 07/21/24 16:57 Urine Glucose (UA) Negative (Normal) 07/21/24 16:57 Urine Ketones Negative (Negative) 07/21/24 16:57 Urine Blood Negative (Negative) 07/21/24 16:57 Urine Nitrate Negative (Negative) 07/21/24 16:57 Urine Bilirubin Negative (Negative) 07/21/24 16:57 Urine Urobilinogen 0.2 mg/dL (Negative) 07/21/24 16:57 Ur Leukocyte Esterase Trace (Negative) A 07/21/24 16:57 Urine RBC 0-2 /hpf (0-2) 07/21/24 16:57 Urine WBC 0-5 /hpf (0-5) 07/21/24 16:57 Ur Squamous Epith Cells 0-5 /hpf (0-5) 07/21/24 16:57 Amorphous Sediment Not Reportable 07/21/24 16:57 Urine Bacteria None seen /hpf (NONE) 07/21/24 16:57 Hyaline Casts 7.42 /lpf 07/21/24 16:57 All radiology interpretation(s) finalized by discharge Discharge Plan Discharge Patient Disposition: Home Clinical Impression: Atrial fibrillation Qualifiers: Atrial fibrillation type: unspecified Qualified Code(s): I48.91 - Unspecified atrial fibrillation Condition: Stable Prescriptions: No Action hydrocodone-acetaminophen 7.5-325 mg tablet 1 - 2 tab PO Q6H PRN (Reason: Pain) cetirizine [Zyrtec] 10 mg tablet 5 mg PO DAILY amlodipine 10 mg tablet 10 mg PO DAILY Qty: 90 3RF isosorbide mononitrate 30 mg tablet extended release 24 hr 30 mg PO BID Qty: 180 3RF gabapentin 600 mg tablet 600 mg PO TID Qty: 90 11RF metformin 500 mg tablet extended release 24 hr 1,000 mg PO QAM Qty: 180 3RF Hold Instructions: Resume on 10/13/23. (DME) OneTouch Verio test strips Strip See Rx Instructions .Route Qty: 100 3RF Rx Instructions: As directed, daily Xeljanz 5 mg tablet 5 mg PO BID Qty: 60 5RF Repatha SureClick 140 mg/mL pen injector 140 mg SUBCUT .[id number] Qty: 2 2RF (DME) auto titrating c-pap 6-14 See Rx Instructions .Route .MEDSUPPLY Qty: 1 0RF Rx Instructions: mask and supplies as needed Pacerone 200 mg tablet 100 mg PO DAILY Qty: 30 11RF Hold Instructions: Adverse Reaction clopidogrel 75 mg tablet 75 mg PO DAILY Qty: 90 3RF spironolactone 25 mg tablet See Rx Instructions .ROUTE .COMPLEX Qty: 90 9RF Hold Instructions: Resume on 10/13/23. Dose Instruction: TAKE 1 TABLET BY MOUTH EVERY DAY Rx Instructions: TAKE 1 TABLET BY MOUTH EVERY DAY Eliquis 2.5 mg tablet 2.5 mg PO BID Qty: 60 11RF furosemide 40 mg tablet 40 mg PO BID Hold Instructions: Resume on 10/13/23. potassium chloride 20 mEq tablet,ER particles/crystals 20 meq PO DAILY aspirin 81 mg Tablet,Delayed Release (Dr/Ec) 81 mg PO DAILY Qty: 90 0RF loperamide 2 mg Capsule 2 mg PO QID PRN (Reason: Diarrhea) Qty: 30 1RF nitroglycerin 0.4 mg Tablet, Sublingual 0.4 mg sublingual Q5M PRN (Reason: Chest Pain) Qty: 25 0RF Discharge Orders: Discharge ED (Routine); Ordered 07/21/24 Ordered By: Keith Kelley Referrals: Devon Walton MD [Primary Care Provider] - 1 week Patient Instructions: Atrial Fibrillation Activity Restrictions/Additional Instructions: Please keep your appointment with Naa Cobb cardiology on Tuesday. If your symptoms return or worsen please feel free to return to the ER. Thank you for choosing [facility] for your healthcare needs today. Please realize that you were seen in the emergency department and that we are providing you with an emergency medical screening exam and this may not be a complete and all exclusive of all testing and/or medical workup we may need to determine your element or severity of your illness. It is very important that you follow-up as instructed with your primary care provider or specialist for the additional evaluation and to discuss your medical treatment plan. You may return to the emergency department should you have concerns or if your condition changes or worsens in any way. Coding Level of Care Code ED [employer] for Jan Tran
[2024-07-21 15:06] LABS: Basophils # 0.1 10^3/uL (0.0-0.1); Basophils % 0.8 %; Eosinophils # 0.3 10^3/uL (0.0-0.8); Eosinophils % 5.6 %; Lymphocytes # 1.7 10^3/uL (0.8-4.8); Lymphocytes % 27.9 %; Mean Corpuscular HGB Conc 34.8 g/dL (30-55); Mean Corpuscular Hemoglobin 29.4 pg (27-33); Mean Corpuscular Volume 84.5 fl (85-98); Mean Platelet Volume 10.6 fL (7.4-10.4); Monocytes # 0.5 10^3/uL (0.2-0.9); Monocytes % 7.8 %; Neutrophils % 57.4 %; Nucleated Red Blood Cells % 0 %; Platelet Count 347 10^3/cmm (157-399); Red Blood Count 5.21 10^6/uL (3.85-5.65); Red Cell Distribution Width 12.2 % (12.1-15.1); White Blood Count 5.92 10^3/uL (3.29-11.43)
[2024-07-21 15:26] LABS: Alanine Aminotransferase 12 U/L (0-33); Albumin Level 4.8 g/dL (3.5-5.2); Alkaline Phosphatase 85 U/L (35-105); Anion Gap 18.5 (5-19); Aspartate Amino Transferase 16 U/L (0-32); Blood Urea Nitrogen 17 mg/dL (8-23); Carbon Dioxide 28 mmol/L (22-29); Chloride 92 mmol/L (98-107); Creatinine Clr Calc Pharmacy 55.2725; Globulin 3.4 g/dL (1.3-4.6); Glucose 160 mg/dL (65-115); Osmolality Calculated 285 mOsm/kg (285-295); Potassium 3.5 mmol/L (3.5-5.1); Sodium 135 mmol/L (136-145); Total Bilirubin 0.9 mg/dL (0.15-1.2); Total Protein 8.2 g/dL (6.6-8.7)
[2024-07-21 15:27] LABS: Troponin(5th) Baseline 28 ng/L (0-10)
--- NOTE | 2024-07-21 16:45 | ECG_ITS ---
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 Measurements Intervals [place] Rate: 103 P: 0 [place]: 0 QRS: -1 QRSD: 91 T: 18 QT: 365 QTc: 479 Interpretive Statements ATRIAL FIBRILLATION WITH RAPID VENTRICULAR RESPONSE WITH ABERRANT CONDUCTION OR VENTRICULAR PREMATURE COMPLEXES ANTERIOR MYOCARDIAL INFARCTION , PROBABLY OLD [40+ ms Q WAVE AND/OR ST/T ABNORMALITY IN V3/V4] INFERIOR MYOCARDIAL INFARCTION , PROBABLY OLD [40+ ms Q WAVE AND/OR ST/T ABNORMALITY IN II/aVF] Compared to ECG 07/21/2024 14:45:53 Aberrant conduction of supraventricular beat(s) now present Myocardial infarct finding still present Electronically Signed On 07-22-2024 20:34:49 [employer] by Jade Vargas M.D. [email or web address]
[2024-07-21 16:59] LABS: INR 1.22 (0.8-1.2)
[2024-07-21 17:03] LABS: Troponin 5 2HR 25.64 ng/L (0-10)
[2024-07-21 17:04] LABS: Troponin 5 2HR Delta -2.36 ABS# (0-10)
[2024-07-21 17:12] LABS: Bilirubin Urine Negative (Negative); Blood Urine Negative (Negative); Glucose Urine UA Negative (Normal); Ketones Urine Negative (Negative); Leukocyte Esterase Urine Trace (Negative); Nitrate Urine Negative (Negative); Protein Urine 1+ (Negative); Specific Gravity, Urine 1.013 (1.005-1.030); Urine Appearance Clear (CLEAR); Urine Color Yellow (Yellow); Urobilinogen Urine 0.2 mg/dL (Negative); pH Urine 5.5 (5-7)
[2024-07-21 17:15] LABS: Add Urine Microscopic? YES; Bacteria Urine None Seen /hpf; Hyaline Casts Urine 7.42 /lpf; RBC Urine 0-2 /hpf (0-2); Squamous Epithelial Cell Urine 0-5 /hpf (0-5); WBC Urine 0-5 /hpf (0-5)
[2024-07-21 17:25] LABS: UA Slide Review UA Slide Review Perf
== END 2024-07-21 18:49 | disposition home or self-care (01) ==
PROVIDERS: Emergency Provider Emergency Medicine; PCP Family Medicine
DX: I48.91 Unspecified atrial fibrillation (principal); Z79.02 Long term (current) use of antithrombotics/antiplatelets; Z79.01 Long term (current) use of anticoagulants; Z79.84 Long term (current) use of oral hypoglycemic drugs; I25.10 Atherosclerotic heart disease of native coronary artery without angina pectoris; E11.9 Type 2 diabetes mellitus without complications
CPT/HCPCS: 36415; 71045; 80053; 81001; 83735; 84484; 85025; 85610; 93005; 99285

== ENCOUNTER → 2024-07-23 08:48 | Outpatient (BNVA) | payer MEDICARE, SELFPAY | PROVIDERS: PCP Family Medicine; Visit Provider Nurse Practitioner Family | DX: I25.10 Atherosclerotic heart disease of native coronary artery without angina pectoris (principal); I48.91 Unspecified atrial fibrillation; I50.32 Chronic diastolic (congestive) heart failure; E78.5 Hyperlipidemia, unspecified | CPT/HCPCS: 99214 ==

== ENCOUNTER 2024-09-02 03:13 | Inpatient (IN) | payer MEDICARE, SELFPAY ==
[2024-09-02] VITALS (35 sets, daily range): BP systolic 118–183; BP diastolic 61–111; PULSE 68–161; RESP 14–26; TEMP 36.3–37.7; O2SAT 89–97; BMI 29.6
--- NOTE | 2024-09-02 03:18 | ED_ITS ---
Documented by User: Keith Kelley, DO 09/02/24 05:43 HPI - SOB/Dyspnea 2 General: Chief Complaint: Shortness of Breath/Dyspnea Stated Complaint: SOB Time Seen by Provider: 09/02/24 03:17 History of Present Illness: HPI Narrative: Patient brought in by EMS with complaints of shortness of breath. Patient woke up around 1030 tonight and was to breathe deeply. Patient has a history of CHF hypertension and A-fib. Per EMS patient's O2 sat on room air is about 84 to 87%. They did give her 1 albuterol treatment and 1 DuoNeb treatment en route. Patient does not have breathing problems that she is aware about. Related Data Home Medications Medication Instructions Recorded Confirmed hydrocodone 7.5 mg-acetaminophen 1 - 2 tab PO Q6H PRN Pain 09/04/19 08/14/24 325 mg tablet cetirizine 10 mg tablet (Zyrtec) 10 mg PO DAILY 07/23/24 08/14/24 Previous Rx's Medication Instructions Recorded loperamide 2 mg capsule 2 mg PO QID PRN Diarrhea #30 caps 10/07/23 nitroglycerin 0.4 mg sublingual 0.4 mg sublingual Q5M PRN Chest 10/07/23 tablet Pain #25 tabs amiodarone 200 mg tablet (Pacerone) 100 mg (1/2 x 200 mg) PO DAILY #30 11/11/23 tabs amlodipine 10 mg tablet 10 mg PO DAILY #90 tabs 12/28/23 isosorbide mononitrate 30 mg 30 mg PO BID #180 tabs 12/28/23 tablet,extended release 24 hr clopidogrel 75 mg tablet 75 mg PO DAILY #90 tabs 01/05/24 blood sugar diagnostic (OneTouch #100 ea 02/23/24 Verio test strips) gabapentin 600 mg tablet 600 mg PO TID #90 tabs 02/23/24 metformin 500 mg tablet,extended 1,000 mg (2 x 500 mg) PO QAM #180 02/23/24 release 24 hr tabs auto titrating c-pap 6-14 #1 ea 04/11/24 spironolactone 25 mg tablet See Rx Instructions .Route 05/11/24 .COMPLEX #90 tabs evolocumab 140 mg/mL subcutaneous 140 mg SUBCUT .d7ycctr #2 mL 05/14/24 pen injector ([employer]) apixaban 2.5 mg tablet (Eliquis) 2.5 mg PO BID #60 tabs 06/13/24 furosemide 40 mg tablet 40 mg PO BID #60 tabs 08/09/24 potassium chloride 20 mEq See Rx Instructions .Route 08/09/24 tablet,extended release(part/cryst) .COMPLEX #90 tabs prednisone 20 mg tablet See Rx Instructions PO .COMPLEX 08/15/24 PRN joint pain flare #30 tabs Allergies Allergy/AdvReac Type Severity Reaction Status Date / Time RON Inhibitors Allergy Angioedema Verified 08/14/24 07:17 diltiazem [From Cardizem] Allergy unknown Verified 08/14/24 07:17 lovastatin Allergy bone and Verified 08/14/24 07:17 muscle pain meperidine [From Demerol] Allergy itching Verified 08/14/24 07:17 methadone Allergy unknown Verified 08/14/24 07:17 pentazocine [From Talwin] Allergy nausea, Verified 08/14/24 07:17 vomiting metoprolol AdvReac Severe bradycardia Verified 08/14/24 07:17 alendronate sodium AdvReac Intermediate swelling Verified 08/14/24 07:17 [From Fosamax] codeine AdvReac Intermediate headache Verified 08/14/24 07:17 erythromycin base AdvReac Intermediate Unknown Verified 08/14/24 07:17 losartan AdvReac Intermediate dizzy Verified 08/14/24 07:17 methotrexate AdvReac Intermediate nausea/ Verified 08/14/24 07:17 diarrhea pravastatin [From Pravachol] AdvReac Intermediate cramps Verified 08/14/24 07:17 PFSH ED 2 PFSH: Medical History Obstructive sleep apnea Diabetes mellitus type 2, controlled Diverticulosis Mesenteric ischemia Hepatomegaly Sleep related hypoxia Paroxysmal atrial fibrillation with RVR Coronary artery disease Latent tuberculosis Completed treatment in 2020 Shingles Immunization counseling Latent tuberculosis by blood test Tenosynovitis of ankle Psoriatic arthritis High risk medication use Peroneal tendinitis of both lower legs Osteoarthritis Rotator cuff arthropathy of right shoulder Psoriasis Surgical History History of eye surgery Removal of scar tissue History of tonsillectomy History of appendectomy History of tubal ligation History of cholecystectomy H/O: hysterectomy Family History Mother Diabetes Hypertension Heart disease Brother Hypertension Sister Hypertension Grandmother Stroke Other Cancer Social History Smoking and tobacco/nicotine status: never used tobacco/nicotine Alcohol intake: never Substance/Drug Use: never Physical Exam 2 Const: COMMON NORMALS: no acute distress, average body habitus, patient oriented x3, no limitations, healthy appearing, alert and well nourished HENMT: COMMON NORMALS: normocephalic, atraumatic, hearing grossly normal bilaterally, external ears normal, Normal external nose present and moist oral mucous membranes HEAD & SCALP: normocephalic and atraumatic NOSE: Normal external nose present EXTERNAL EAR: Yes external ears normal Neck/C-Spine: COMMON NORMALS: no JVD Chest: COMMONS NORMALS: normal inspection of the chest and normal palpation of entire chest wall Resp: COMMON NORMALS: normal respiratory effort, No retractions and No use of accessory muscles; negative for clear to auscultation bilaterally (Decreased breath sounds bilaterally) AUSCULTATION: not clear to auscultation bilaterally (Decreased breath sounds bilaterally) Cardio: COMMON NORMALS: no JVD, regular rate, regular rhythm, S1 normal heart sound present, S2 normal heart sound present, No gallops present (Cardio), No clicks present (Cardio), No murmurs present (Cardio) and No rub (Cardio) R ATE: regular rate RHYTHM: regular rhythm HEART SOUNDS: S1 normal heart sound present and S2 normal heart sound present GI: COMMON NORMALS: Normal to inspection, nondistended, normoactive bowel sounds present, Soft to palpation, non-tender, No hepatosplenomegaly present and no masses PALPATION: Yes Soft to palpation and Yes No hepatosplenomegaly present Neuro: COMMON NORMALS: patient oriented x3 SENSORIUM/ORIENTATION: Yes alert Course 2 Vital Signs: Vital signs: Vital Signs Temperature 99.6 F 09/02/24 03:14 Pulse Rate 101 H 09/02/24 05:21 Respiratory Rate 16 09/02/24 05:21 Blood Pressure 174/111 09/02/24 03:14 Pulse Oximetry 92 09/02/24 05:21 Oxygen Delivery Me thod Nasal Cannula 09/02/24 05:21 Oxygen Flow Rate 6 09/02/24 05:21 MDM - SOB/Dyspnea Medical Records I reviewed the patient's medical records. Lab Data I reviewed the patient's lab results. 09/02/24 03:30 09/02/24 03:30 Labs/Radiology: Radiology Impressions Chest X-Ray 09/02/24 03:19 IMPRESSION: 1. Moderate cardiomegaly with vascular congestion. 2. Mild pulmonary edema. Laboratory Results WBC 16.38 10^3/uL (3.29-11.43) H 09/02/24 03:30 RBC 4.32 10^6/uL (3.85-5.65) 09/02/24 03:30 Hgb 12.80 g/dL (11.27-16.99) 09/02/24 03:30 Hct 37.8 % (36-47) 09/02/24 03:30 MCV 87.5 fl (85-98) 09/02/24 03:30 MCH 29.6 pg (27-33) 09/02/24 03:30 MCHC 33.9 g/dL (30-55) 09/02/24 03:30 RDW 12.6 % (12.1-15.1) 09/02/24 03:30 Plt Count 292 10^3/cmm (157-399) 09/02/24 03:30 MPV 10.0 fL (7.4-10.4) 09/02/24 03:30 Neut % (Auto) 77.4 % 09/02/24 03:30 Lymph % (Auto) 13.9 % 09/02/24 03:30 [place] % (Auto) 6.8 % 09/02/24 03:30 Eos % (Auto) 0.6 % 09/02/24 03:30 Baso % (Auto) 0.4 % 09/02/24 03:30 Neut # (Auto) 12.69 10^3/uL (1.8-7.7) H 09/02/24 03:30 Lymph # (Auto) 2.3 10^3/uL (0.8-4.8) 09/02/24 03:30 [place] # (Auto) 1.1 10^3/uL (0.2-0.9) H 09/02/24 03:30 Eos # (Auto) 0.1 10^3/uL (0.0-0.8) 09/02/24 03:30 Baso # (Auto) 0.1 10^3/uL (0.0-0.1) 09/02/24 03:30 Nucleated RBC % (auto) 0 % 09/02/24 03:30 Nucleated RBCs # 0.0 /100WBC 09/02/24 03:30 Specimen Type Arterial 09/02/24 03:35 Sample Site Radial, right 09/02/24 03:35 ABG pH 7.42 (7.35-7.45) 09/02/24 03:35 ABG pCO2 45.0 mmHg (35-45) 09/02/24 03:35 ABG pO2 66.4 mmHg (80.0-100.0) L 09/02/24 03:35 ABG HCO3 29.4 mmol/L (22-26) H 09/02/24 03:35 ABG O2 Saturation 94.0 09/02/24 03:35 ABG Base Excess 4.3 mmol/L (-2.0-2.0) H 09/02/24 03:35 Ramesh Test Pos 09/02/24 03:35 A-a O2 Gradient 3.4 mmHg (5-10) L 09/02/24 03:35 Hematocrit 39.6 % (37-47) 09/02/24 03:35 Hgb O2 Saturation 91.9 % (95-100) L 09/02/24 03:35 Carboxyhemoglobin 1.4 %THgb (0.4-20.1) 09/02/24 03:35 Methemoglobin 0.9 % (0.4-1.5) 09/02/24 03:35 Total Hemoglobin 12.9 g/dL (12-16) 09/02/24 03:35 Sodium 138.0 mmol/L (131-143) 09/02/24 03:35 Potassium 3.6 mmol/L (3.5-5.0) 09/02/24 03:35 Glucose 267.0 mg/dL (70-115) H 09/02/24 03:35 Ionized Calcium 1.2 mmol/L (1.1-1.4) 09/02/24 03:35 O2 Delivery Device Nc 09/02/24 03:35 O2 Liters/Min 6.0 % 09/02/24 03:35 Flight Crew Time Clerk ID [email or web address] 09/02/24 03:35 Sodium 137 mmol/L (136-145) 09/02/24 03:30 Potassium 3.7 mmol/L (3.5-5.1) 09/02/24 03:30 Chloride 94 mmol/L (98-107) L 09/02/24 03:30 Carbon Dioxide 28 mmol/L (22-29) 09/02/24 03:30 Anion Gap 18.7 (5-19) 09/02/24 03:30 BUN 21 mg/dL (8-23) 09/02/24 03:30 Creatinine 0.7 mg/dL (0.5-0.9) 09/02/24 03:30 GFR Calculation Not Reportable 09/02/24 03:30 Glucose 266 mg/dL (65-115) H 09/02/24 03:30 Calculated Osmolality 296 mOsm/kg (285-295) H 09/02/24 03:30 Calcium 9.6 mg/dL (8.5-10.5) 09/02/24 03:30 Magnesium 1.8 mg/dL (1.7-2.3) 09/02/24 03:30 Total Bilirubin 1.0 mg/dL (0.15-1.2) 09/02/24 03:30 AST 11 U/L (0-32) 09/02/24 03:30 ALT 11 U/L (0-33) 09/02/24 03:30 Alkaline Phosphatase 93 U/L (35-105) 09/02/24 03:30 Troponin T Baseline 30 ng/L (0-10) H 09/02/24 03:30 Troponin T 120 Minute 30.18 ng/L (0-10) H 09/02/24 05:50 Delta Troponin T 0.18 ABS# (0-10) 09/02/24 05:50 NT-Pro-B Natriuret Pep 1243 pg/mL (0-450) H 09/02/24 03:30 Total Protein 7.4 g/dL (6.6-8.7) 09/02/24 03:30 Albumin 4.5 g/dL (3.5-5.2) 09/02/24 03:30 Globulin 2.9 g/dL (1.3-4.6) 09/02/24 03:30 Coronavirus (PCR) Negative (Negative) 09/02/24 03:30 Influenza A (PCR) Negative (Negative) 09/02/24 03:30 Influenza Type B (PCR) Negative (Negative) 09/02/24 03:30 RSV (PCR) Negative (Negative) 09/02/24 03:30 All radiology interpretation(s) finalized by discharge Discharge Plan Discharge Patient Disposition: Admitted As Inpatient Clinical Impression: Acute hypoxemic respiratory failure, Community acquired pneumonia, Sepsis Condition: Stable Prescriptions: No Action hydrocodone-acetaminophen 7.5-325 mg tablet 1 - 2 tab PO Q6H PRN (Reason: Pain) cetirizine [Zyrtec] 10 mg tablet 10 mg PO DAILY amlodipine 10 mg tablet 10 mg PO DAILY Qty: 90 3RF isosorbide mononitrate 30 mg tablet extended release 24 hr 30 mg PO BID Qty: 180 3RF gabapentin 600 mg tablet 600 mg PO TID Qty: 90 11RF metformin 500 mg tablet extended release 24 hr 1,000 mg PO QAM Qty: 180 3RF Hold Instructions: Resume on 10/13/23. (DME) OneTouch Verio test strips Strip See Rx Instructions .Route Qty: 100 3RF Rx Instructions: As directed, daily Repatha SureClick 140 mg/mL pen injector 140 mg SUBCUT .[id number] Qty: 2 2RF (DME) auto titrating c-pap 6-14 See Rx Instructions .Route .MEDSUPPLY Qty: 1 0RF Rx Instructions: mask and supplies as needed prednisone 20 mg tablet See Rx Instructions PO .COMPLEX PRN (Reason: joint pain flare) Qty: 30 1RF Rx Instructions: take 1 daily for 3-7 days PRN joint pain flare PO PRN; furosemide 40 mg tablet 40 mg PO BID Qty: 60 11RF Hold Instructions: Resume on 10/13/23. Pacerone 200 mg tablet 100 mg PO DAILY Qty: 30 11RF Hold Instructions: Adverse Reaction clopidogrel 75 mg tablet 75 mg PO DAILY Qty: 90 3RF spironolactone 25 mg tablet See Rx Instructions .ROUTE .COMPLEX Qty: 90 9RF Hold Instructions: Resume on 10/13/23. Dose Instruction: TAKE 1 TABLET BY MOUTH EVERY DAY Rx Instructions: TAKE 1 TABLET BY MOUTH EVERY DAY Eliquis 2.5 mg tablet 2.5 mg PO BID Qty: 60 11RF potassium chloride 20 mEq tablet,ER particles/crystals See Rx Instructions .ROUTE .COMPLEX Qty: 90 3RF Dose Instruction: TAKE 1 TABLET BY MOUTH EVERY DAY Rx Instructions: TAKE 1 TABLET BY MOUTH EVERY DAY loperamide 2 mg Capsule 2 mg PO QID PRN (Reason: Diarrhea) Qty: 30 1RF nitroglycerin 0.4 mg Tablet, Sublingual 0.4 mg sublingual Q5M PRN (Reason: Chest Pain) Qty: 25 0RF Referrals: Devon Walton MD [Primary Care Provider] - Coding Level of Care Code ED Wagon Person for Chg Fwd Documented by User: Toan Simon MD 09/02/24 06:33 HPI - SOB/Dyspnea 2 General: Chief Complaint: Shortness of Breath/Dyspnea Stated Complaint: SOB Time Seen by Provider: 09/02/24 03:17 Related Data Home Medications Medication Instructions Recorded Confirmed hydrocodone 7.5 mg-acetaminophen 1 - 2 tab PO Q6H PRN Pain 09/04/19 08/14/24 325 mg tablet cetirizine 10 mg tablet (Zyrtec) 10 mg PO DAILY 07/23/24 08/14/24 Previous Rx's Medication Instructions Recorded loperamide 2 mg capsule 2 mg PO QID PRN Diarrhea #30 caps 10/07/23 nitroglycerin 0.4 mg sublingual 0.4 mg sublingual Q5M PRN Chest 10/07/23 tablet Pain #25 tabs amiodarone 200 mg tablet (Pacerone) 100 mg (1/2 x 200 mg) PO DAILY #30 11/11/23 tabs amlodipine 10 mg tablet 10 mg PO DAILY #90 tabs 12/28/23 isosorbide mononitrate 30 mg 30 mg PO BID #180 tabs 12/28/23 tablet,extended release 24 hr clopidogrel 75 mg tablet 75 mg PO DAILY #90 tabs 01/05/24 blood sugar diagnostic (OneTouch #100 ea 02/23/24 Verio test strips) gabapentin 600 mg tablet 600 mg PO TID #90 tabs 02/23/24 metformin 500 mg tablet,extended 1,000 mg (2 x 500 mg) PO QAM #180 02/23/24 release 24 hr tabs auto titrating c-pap 6-14 #1 ea 04/11/24 spironolactone 25 mg tablet See Rx Instructions .Route 05/11/24 .COMPLEX #90 tabs evolocumab 140 mg/mL subcutaneous 140 mg SUBCUT .s3hittt #2 mL 05/14/24 pen injector (Repatha SureClick) apixaban 2.5 mg tablet (Eliquis) 2.5 mg PO BID #60 tabs 06/13/24 furosemide 40 mg tablet 40 mg PO BID #60 tabs 08/09/24 potassium chloride 20 mEq See Rx Instructions .Route 08/09/24 tablet,extended release(part/cryst) .COMPLEX #90 tabs prednisone 20 mg tablet See Rx Instructions PO .COMPLEX 08/15/24 PRN joint pain flare #30 tabs Allergies Allergy/AdvReac Type Severity Reaction Status Date / Time RON Inhibitors Allergy Angioedema Verified 08/14/24 07:17 diltiazem [From Cardizem] Allergy unknown Verified 08/14/24 07:17 lovastatin Allergy bone and Verified 08/14/24 07:17 muscle pain meperidine [From Demerol] Allergy itching Verified 08/14/24 07:17 methadone Allergy unknown Verified 08/14/24 07:17 pentazocine [From Talwin] Allergy nausea, Verified 08/14/24 07:17 vomiting metoprolol AdvReac Severe bradycardia Verified 08/14/24 07:17 alendronate sodium AdvReac Intermediate swelling Verified 08/14/24 07:17 [From Fosamax] codeine AdvReac Intermediate headache Verified 08/14/24 07:17 erythromycin base AdvReac Intermediate Unknown Verified 08/14/24 07:17 losartan AdvReac Intermediate dizzy Verified 08/14/24 07:17 methotrexate AdvReac Intermediate nausea/ Verified 08/14/24 07:17 diarrhea pravastatin [From Pravachol] AdvReac Intermediate cramps Verified 08/14/24 07:17 [facility] ED 2 PFS: Medical History Obstructive sleep apnea Diabetes mellitus type 2, controlled Diverticulosis Mesenteric ischemia Hepatomegaly Sleep related hypoxia Paroxysmal atrial fibrillation with RVR Coronary artery disease Latent tuberculosis Completed treatment in 2020 Shingles Immunization counseling Latent tuberculosis by blood test Tenosynovitis of ankle Psoriatic arthritis High risk medication use Peroneal tendinitis of both lower legs Osteoarthritis Rotator cuff arthropathy of right shoulder Psoriasis Surgical History History of eye surgery Removal of scar tissue History of tonsillectomy History of appendectomy History of tubal ligation History of cholecystectomy H/O: hysterectomy Family History Mother Diabetes Hypertension Heart disease Brother Hypertension Sister Hypertension Grandmother Stroke Other Cancer Social History Smoking and tobacco/nicotine status: never used tobacco/nicotine Alcohol intake: never Substance/Drug Use: never Course 2 ED course: 0600 This section of the note by Dr Simon. I took over at 0600 Patient arrived to the emergency department after waking up with shortness of breath. Patient found to have new hypoxic respiratory failure. I have personally reviewed her first EKG which appears to be either A-fib or sinus rhythm with frequent premature beats. The second EKG is a sinus rhythm with premature atrial complexes. Patient has noted to have borderline tachycardia, elevated white blood cell count, elevated temperature. She endorses she started to cough up some grayish sputum. I suspect this is more of an infectious pneumonia than congestive heart failure. Patient is hypertensive here. She is not complaining of any chest pain. Troponins appear to be flat. I do not think this is a hypertensive emergency. Clinically less likely to be pulmonary embolism based on history and exam. I am going to start treatment for community-acquired pneumonia. Patient does meet criteria for sepsis. Blood cultures, lactic acid, ideal body weight fluids bolus (has CHF and BMI 30) have all been ordered. ABG was reviewed and showed hypoxia without hypercapnia. COVID and flu were negative. I have ordered some hydralazine for her elevated blood pressure since she is reportedly very sensitive to calcium channel blockers and beta-blockers that may cause her bradycardia. I discussed the case with Dr. Mendoza for admission. Vital Signs: Vital signs: Vital Signs Temperature 99.6 F 09/02/24 03:14 Pulse Rate 101 H 09/02/24 05:21 Respiratory Rate 16 09/02/24 05:21 Blood Pressure 174/111 09/02/24 03:14 Pulse Oximetry 92 09/02/24 05:21 Oxygen Delivery Me thod Nasal Cannula 09/02/24 05:21 Oxygen Flow Rate 6 09/02/24 05:21 MDM - SOB/Dyspnea Medical Decision Making 0600 This section of the note by Dr Simon. I took over at 0600 Patient arrived to the emergency department after waking up with shortness of breath. Patient found to have new hypoxic respiratory failure. Patient has rales and mild tachypnea on exam. She is awake and alert. She follows all commands. She is not in distress. I have personally reviewed her first EKG which appears to be either A-fib or sinus rhythm with frequent premature beats. The second EKG is a sinus rhythm with premature atrial complexes. Patient has noted to have borderline tachycardia, elevated white blood cell count, elevated temperature. She endorses she started to cough up some grayish sputum. I suspect this is more of an infectious pneumonia than congestive heart failure. Patient is hypertensive here. She is not complaining of any chest pain. Troponins appear to be flat. I do not think this is a hypertensive emergency. Clinically less likely to be pulmonary embolism based on history and exam. I am going to start treatment for community-acquired pneumonia. Patient does meet criteria for sepsis. Blood cultures, lactic acid, ideal body weight fluids bolus (has CHF and BMI 30) have all been ordered. ABG was reviewed and showed hypoxia without hypercapnia. COVID and flu were negative. I have ordered some hydralazine for her elevated blood pressure since she is reportedly very sensitive to calcium channel blockers and beta-blockers that may cause her bradycardia. I discussed the case with Dr. Mendoza for admission. Lab Data 09/02/24 03:30 09/02/24 03:30 Labs/Radiology: Radiology Impressions Chest X-Ray 09/02/24 03:19 IMPRESSION: 1. Moderate cardiomegaly with vascular congestion. 2. Mild pulmonary edema. Laboratory Results WBC 16.38 10^3/uL (3.29-11.43) H 09/02/24 03:30 RBC 4.32 10^6/uL (3.85-5.65) 09/02/24 03:30 Hgb 12.80 g/dL (11.27-16.99) 09/02/24 03:30 Hct 37.8 % (36-47) 09/02/24 03:30 MCV 87.5 fl (85-98) 09/02/24 03:30 MCH 29.6 pg (27-33) 09/02/24 03:30 MCHC 33.9 g/dL (30-55) 09/02/24 03:30 RDW 12.6 % (12.1-15.1) 09/02/24 03:30 Plt Count 292 10^3/cmm (157-399) 09/02/24 03:30 MPV 10.0 fL (7.4-10.4) 09/02/24 03:30 Neut % (Auto) 77.4 % 09/02/24 03:30 Lymph % (Auto) 13.9 % 09/02/24 03:30 [place] % (Auto) 6.8 % 09/02/24 03:30 Eos % (Auto) 0.6 % 09/02/24 03:30 Baso % (Auto) 0.4 % 09/02/24 03:30 Neut # (Auto) 12.69 10^3/uL (1.8-7.7) H 09/02/24 03:30 Lymph # (Auto) 2.3 10^3/uL (0.8-4.8) 09/02/24 03:30 [place] # (Auto) 1.1 10^3/uL (0.2-0.9) H 09/02/24 03:30 Eos # (Auto) 0.1 10^3/uL (0.0-0.8) 09/02/24 03:30 Baso # (Auto) 0.1 10^3/uL (0.0-0.1) 09/02/24 03:30 Nucleated RBC % (auto) 0 % 09/02/24 03:30 Nucleated RBCs # 0.0 /100WBC 09/02/24 03:30 Specimen Type Arterial 09/02/24 03:35 Sample Site Radial, right 09/02/24 03:35 ABG pH 7.42 (7.35-7.45) 09/02/24 03:35 ABG pCO2 45.0 mmHg (35-45) 09/02/24 03:35 ABG pO2 66.4 mmHg (80.0-100.0) L 09/02/24 03:35 ABG HCO3 29.4 mmol/L (22-26) H 09/02/24 03:35 ABG O2 Saturation 94.0 09/02/24 03:35 ABG Base Excess 4.3 mmol/L (-2.0-2.0) H 09/02/24 03:35 Ramesh Test Pos 09/02/24 03:35 A-a O2 Gradient 3.4 mmHg (5-10) L 09/02/24 03:35 Hematocrit 39.6 % (37-47) 09/02/24 03:35 Hgb O2 Saturation 91.9 % (95-100) L 09/02/24 03:35 Carboxyhemoglobin 1.4 %THgb (0.4-20.1) 09/02/24 03:35 Methemoglobin 0.9 % (0.4-1.5) 09/02/24 03:35 Total Hemoglobin 12.9 g/dL (12-16) 09/02/24 03:35 Sodium 138.0 mmol/L (131-143) 09/02/24 03:35 Potassium 3.6 mmol/L (3.5-5.0) 09/02/24 03:35 Glucose 267.0 mg/dL (70-115) H 09/02/24 03:35 Ionized Calcium 1.2 mmol/L (1.1-1.4) 09/02/24 03:35 O2 Delivery Device Nc 09/02/24 03:35 O2 Liters/Min 6.0 % 09/02/24 03:35 Flight Crew Time Clerk ID [id number] 09/02/24 03:35 Sodium 137 mmol/L (136-145) 09/02/24 03:30 Potassium 3.7 mmol/L (3.5-5.1) 09/02/24 03:30 Chloride 94 mmol/L (98-107) L 09/02/24 03:30 Carbon Dioxide 28 mmol/L (22-29) 09/02/24 03:30 Anion Gap 18.7 (5-19) 09/02/24 03:30 BUN 21 mg/dL (8-23) 09/02/24 03:30 Creatinine 0.7 mg/dL (0.5-0.9) 09/02/24 03:30 GFR Calculation Not Reportable 09/02/24 03:30 Glucose 266 mg/dL (65-115) H 09/02/24 03:30 Calculated Osmolality 296 mOsm/kg (285-295) H 09/02/24 03:30 Calcium 9.6 mg/dL (8.5-10.5) 09/02/24 03:30 Magnesium 1.8 mg/dL (1.7-2.3) 09/02/24 03:30 Total Bilirubin 1.0 mg/dL (0.15-1.2) 09/02/24 03:30 AST 11 U/L (0-32) 09/02/24 03:30 ALT 11 U/L (0-33) 09/02/24 03:30 Alkaline Phosphatase 93 U/L (35-105) 09/02/24 03:30 Troponin T Baseline 30 ng/L (0-10) H 09/02/24 03:30 Troponin T 120 Minute 30.18 ng/L (0-10) H 09/02/24 05:50 Delta Troponin T 0.18 ABS# (0-10) 09/02/24 05:50 NT-Pro-B Natriuret Pep 1243 pg/mL (0-450) H 09/02/24 03:30 Total Protein 7.4 g/dL (6.6-8.7) 09/02/24 03:30 Albumin 4.5 g/dL (3.5-5.2) 09/02/24 03:30 Globulin 2.9 g/dL (1.3-4.6) 09/02/24 03:30 Coronavirus (PCR) Negative (Negative) 09/02/24 03:30 Influenza A (PCR) Negative (Negative) 09/02/24 03:30 Influenza Type B (PCR) Negative (Negative) 09/02/24 03:30 RSV (PCR) Negative (Negative) 09/02/24 03:30 Discharge Plan Discharge Patient Disposition: Admitted As Inpatient Clinical Impression: Acute hypoxemic respiratory failure, Community acquired pneumonia, Sepsis Condition: Stable Prescriptions: No Action hydrocodone-acetaminophen 7.5-325 mg tablet 1 - 2 tab PO Q6H PRN (Reason: Pain) cetirizine [Zyrtec] 10 mg tablet 10 mg PO DAILY amlodipine 10 mg tablet 10 mg PO DAILY Qty: 90 3RF isosorbide mononitrate 30 mg tablet extended release 24 hr 30 mg PO BID Qty: 180 3RF gabapentin 600 mg tablet 600 mg PO TID Qty: 90 11RF metformin 500 mg tablet extended release 24 hr 1,000 mg PO QAM Qty: 180 3RF Hold Instructions: Resume on 10/13/23. (DME) OneTouch Verio test strips Strip See Rx Instructions .Route Qty: 100 3RF Rx Instructions: As directed, daily Repatha SureClick 140 mg/mL pen injector 140 mg SUBCUT .[id number] Qty: 2 2RF (DME) auto titrating c-pap 6-14 See Rx Instructions .Route .MEDSUPPLY Qty: 1 0RF Rx Instructions: mask and supplies as needed prednisone 20 mg tablet See Rx Instructions PO .COMPLEX PRN (Reason: joint pain flare) Qty: 30 1RF Rx Instructions: take 1 daily for 3-7 days PRN joint pain flare PO PRN; furosemide 40 mg tablet 40 mg PO BID Qty: 60 11RF Hold Instructions: Resume on 10/13/23. Pacerone 200 mg tablet 100 mg PO DAILY Qty: 30 11RF Hold Instructions: Adverse Reaction clopidogrel 75 mg tablet 75 mg PO DAILY Qty: 90 3RF spironolactone 25 mg tablet See Rx Instructions .ROUTE .COMPLEX Qty: 90 9RF Hold Instructions: Resume on 10/13/23. Dose Instruction: TAKE 1 TABLET BY MOUTH EVERY DAY Rx Instructions: TAKE 1 TABLET BY MOUTH EVERY DAY Eliquis 2.5 mg tablet 2.5 mg PO BID Qty: 60 11RF potassium chloride 20 mEq tablet,ER particles/crystals See Rx Instructions .ROUTE .COMPLEX Qty: 90 3RF Dose Instruction: TAKE 1 TABLET BY MOUTH EVERY DAY Rx Instructions: TAKE 1 TABLET BY MOUTH EVERY DAY loperamide 2 mg Capsule 2 mg PO QID PRN (Reason: Diarrhea) Qty: 30 1RF nitroglycerin 0.4 mg Tablet, Sublingual 0.4 mg sublingual Q5M PRN (Reason: Chest Pain) Qty: 25 0RF Referrals: Devon Walton MD [Primary Care Provider] - Coding Level of Care Code ED Wagon Person for Jan Tran
--- NOTE | 2024-09-02 03:19 | XRR_ITS ---
PROCEDURE INFORMATION: Exam: XR Chest Exam date and time: 09/02/2024 3:23 AM Age: 78 years old Clinical indication: Dyspnea and shortness of breath; Prior surgery; Surgery date: 6+ months; Surgery type: Coronary stents; Patient HX: C/O dyspnea and SOB. History of afib. TECHNIQUE: Imaging protocol: Radiologic exam of the chest. Views: 1 view. COMPARISON: CR (CHEST, ) 07/21/2024 2:51 PM FINDINGS: Lungs: No infiltrate. Mild pulmonary edema. Pleural spaces: Unremarkable. No pleural effusion. No pneumothorax. Heart/Mediastinum: There is moderate cardiomegaly with vascular congestion. Bones/joints: Unremarkable. XR/XR chest 1V portable [id number] IMPRESSION: 1. Moderate cardiomegaly with vascular congestion. 2. Mild pulmonary edema.
[2024-09-02 03:39] LABS: Basophils # 0.1 10^3/uL (0.0-0.1); Basophils % 0.4 %; Eosinophils # 0.1 10^3/uL (0.0-0.8); Eosinophils % 0.6 %; Hematocrit 37.8 % (36-47); Lymphocytes # 2.3 10^3/uL (0.8-4.8); Lymphocytes % 13.9 %; Mean Corpuscular HGB Conc 33.9 g/dL (30-55); Mean Corpuscular Hemoglobin 29.6 pg (27-33); Mean Corpuscular Volume 87.5 fl (85-98); Monocytes # 1.1 10^3/uL (0.2-0.9); Monocytes % 6.8 %; Neutrophils # 12.69 10^3/uL (1.8-7.7); Neutrophils % 77.4 %; Nucleated Red Blood Cells % 0 %; Platelet Count 292 10^3/cmm (157-399); Red Blood Count 4.32 10^6/uL (3.85-5.65); Red Cell Distribution Width 12.6 % (12.1-15.1); White Blood Count 16.38 10^3/uL (3.29-11.43)
--- NOTE | 2024-09-02 03:46 | ECG_ITS ---
[facility] Date: 2024-09[facility]02 Pat Name: Chela Rodriguez Department: Room: Gender: Female Bond Writer: : 1945 Requested By: Keith Kelley Order Number: [id number] Nessa MD: Cristo Chan M.D. Measurements Intervals [place] Rate: 95 P: 74 VT: 174 QRS: 34 QRSD: 99 T: 66 QT: 379 QTc: 479 Interpretive Statements SINUS RHYTHM WITH FREQUENT SUPRAVENTRICULAR PREMATURE COMPLEXES MODERATE ST DEPRESSION [0.05+ mV ST DEPRESSION] Compared to ECG 07/21/2024 17:02:02 ST (T wave) deviation now present Atrial fibrillation no longer present Ventricular premature complex(es) no longer present Aberrant conduction of supraventricular beat(s) no longer present Myocardial infarct finding no longer present Electronically Signed On 09-02-2024 20:06:08 CREATIVE DEVELOPER by Cristo Chan M.D. [id number]
[2024-09-02 03:50] LABS: ABG PH Result 7.42 (7.35-7.45); Alveolar-Arterial Oxygen Gradi 3.4 mmHg (5-10); Arterial Blood Gas Hematocrit 39.6 % (37-47); Base Excess ABG 4.3 mmol/L (-2.0-2.0); Blood Gas Allen Test Pos; Blood Gas Operator Identificat JDB; Blood Gas Sample Site Radial, right; Blood Gas Sample Type Arterial; Carboxyhemoglobin 1.4 %THgb (0.4-20.1); HCO3 ABG 29.4 mmol/L (22-26); HGB O2 Sat 91.9 % (95-100); Ionized Calcium Level - ABG 1.2 mmol/L (1.1-1.4); Methemoglobin 0.9 % (0.4-1.5); Oxygen Device NC; PO2 ABG 66.4 mmHg (80.0-100.0); Potassium Level - ABG 3.6 mmol/L (3.5-5.0); Total Hemoglobin 12.9 g/dL (12-16)
[2024-09-02 04:02] LABS: Troponin(5th) Baseline 30 ng/L (0-10)
[2024-09-02 04:17] LABS: Covid PCR NEGATIVE (Negative); Influenza A NEGATIVE (Negative); Influenza B NEGATIVE (Negative); Respiratory Syncytial Virus Ce NEGATIVE (Negative)
[2024-09-02 04:27] LABS: Alanine Aminotransferase 11 U/L (0-33); Albumin Level 4.5 g/dL (3.5-5.2); Alkaline Phosphatase 93 U/L (35-105); Anion Gap 18.7 (5-19); Aspartate Amino Transferase 11 U/L (0-32); Blood Urea Nitrogen 21 mg/dL (8-23); Calcium 9.6 mg/dL (8.5-10.5); Carbon Dioxide 28 mmol/L (22-29); Chloride 94 mmol/L (98-107); Creatinine Clr Calc Pharmacy 55.2725; Globulin 2.9 g/dL (1.3-4.6); Glucose 266 mg/dL (65-115); Magnesium 1.8 mg/dL (1.7-2.3); NT Pro B Type Natriuretic Pept 1243 pg/mL (0-450); Osmolality Calculated 296 mOsm/kg (285-295); Potassium 3.7 mmol/L (3.5-5.1); Sodium 137 mmol/L (136-145); Total Protein 7.4 g/dL (6.6-8.7)
[2024-09-02] MEDS: FUROsemide 10 mg/mL SDV 4mL 40 MG IVP ×2 (05:03→15:29)
--- NOTE | 2024-09-02 05:18 | ECG_ITS ---
[facility] Test Date: 2024-09-02 Pat Name: Chela Rodriguez Department: Room: Gender: Female Clerk Rating: : 1945 Requested By: Keith Kelley Order Number: [id number] Nessa MD: Cristo Chan M.D. Measurements Intervals [place] Rate: 101 P: 0 ND: 0 QRS: -5 QRSD: 88 T: 3 QT: 338 QTc: 440 Interpretive Statements SINUS RHYTHM WITH FREQUENT SUPRAVENTRICULAR PREMATURE COMPLEXES SEPTAL MYOCARDIAL INFARCTION , PROBABLY OLD [40+ ms Q WAVE IN V1/V2] Compared to ECG 09/02/2024 03:46:48 Myocardial infarct finding now present ST (T wave) deviation no longer present Electronically Signed On 09-02-2024 20:13:12 VICE PRESIDENT OF OPERATIONS by Cristo Chan M.D. [id number]
[2024-09-02] MEDS: ipratropium-albuterol 3 mL Neb INHALATION (05:20)
[2024-09-02 06:16] LABS: Troponin 5 2HR 30.18 ng/L (0-10); Troponin 5 2HR Delta 0.18 ABS# (0-10)
[2024-09-02] MEDS: sodium chloride 0.9% 1,503 ML 1503 ML IV (06:30)
[2024-09-02] MEDS: acetaminophen 325 mg Tablet 650 MG PO (06:51)
[2024-09-02] MEDS: hyDRALAzine 20 mg/mL INJ 1 mL 10 MG IVP (06:51)
--- NOTE | 2024-09-02 07:20 | PC.NURSE ---
took over pt care from MARCELA Osorio @ [phone]
[2024-09-02 07:37] LABS: Lactic Sepsis W/Reflex 3.6 mmol/L (0.5-2.2)
[2024-09-02] MEDS: cefTRIAXone 2,000 mg SDV 2000 MG IVP (08:02)
[2024-09-02] MEDS: doxycycline 100 MG in sodium chloride 0.9% (plus) 100 ML IV (08:08)
[2024-09-02 08:27] LABS: Bilirubin Urine Negative (Negative); Blood Urine Negative (Negative); Glucose Urine UA 2+ (Normal); Ketones Urine Negative (Negative); Leukocyte Esterase Urine Trace (Negative); Nitrate Urine Negative (Negative); Protein Urine Trace (Negative); Specific Gravity, Urine 1.012 (1.005-1.030); Urine Appearance Clear (CLEAR); Urine Color Yellow (Yellow); Urobilinogen Urine 0.2 mg/dL (Negative)
[2024-09-02 08:29] LABS: Add Urine Microscopic? YES; Bacteria Urine None Seen /hpf; Hyaline Casts Urine 1.21 /lpf; RBC Urine 0-2 /hpf (0-2); Squamous Epithelial Cell Urine 0-5 /hpf (0-5); WBC Urine 0-5 /hpf (0-5)
[2024-09-02 09:00] LABS: Reflex Lactate Order REFLEX LACTIC ORDERD
[2024-09-02 10:29] LABS: Troponin 5 6HR 32.58 ng/L (0-10); Troponin 5 6HR Delta 2.58 ng/L (0-12)
--- NOTE | 2024-09-02 10:31 | P.HP_ITS ---
Providers/Chief Complaint 2 Admitting Physician: Chasity Hernandez MD Primary Care Provider: Devon Walton MD Chief Complaint: SOB History of Present Illness Chela Rodriguez is a 78 year old female with PMH A fib intolerant of Beta blockers, cardizem and amiodarone due to bradycardia, recently taken off Amiodarone in late June 2024 due to bradycardia. PMH also of CHF, treated LTBI, presenting today for worsening shortness of breath over the past 3 4- days. She has been unable to lay flat, woke up this morning with shortness of breath. Denies cheat pain. Reveiew of chart shows she has had episodes of intermittent A fib off the amiodarone. She was in the ED on 07/21 with these symptoms, did not wish for rate control agents then. Previosuly her HR has been over 100 on occassions but has not sustained for more than a few moniutes or so. LE edema +. Cough +. she was hypoxic with 02 requirement at 4lpm. She has a low grade temp today, CXR shows B/L infiltrates concerning for PNA vs pulmonary edema. Patient is on Eliquis 5mg BID , less likely PE. Review of Systems 2 General: Reports: 10 or more systems reviewed and unremarkable except in HPI and below Const: Denies: fever(s), chills or body aches Eyes: Denies: change in vision, blurry vision or photophobia ENMT: Reports: hoarseness; Denies: throat pain, enlarged tonsils, odynophagia or nasal congestion Card: Denies: chest pain, palpitations, irregular heart rhythm, edema, swelling of feet/ankles, lightheadedness, pre-syncope, dyspnea on exertion or orthopnea Resp: Denies: dyspnea, productive cough, non-productive cough, wheezing, stridor, pain on inspiration, change in phlegm color, hemoptysis or chest congestion GI: Denies: abdominal pain, nausea, vomiting, hematemesis, coffee ground emesis, dysphagia, heartburn, diarrhea, constipation, GI cramping, change in stool character, hematochezia or melena : Denies: flank pain, difficulty voiding, dysuria, urinary frequency, urinary urgency, urinary hesitancy or hematuria Musc: Denies: neck pain, back pain, extremity pain, joint swelling, joint warmth or deformity Neuro: Denies: headache(s), numbness in extremities, weakness in extremities, sensory changes, difficulty walking, frequent falls, dizziness, vertigo, behavioral changes, Slurred speech present or seizure-like activity Psych: Denies: anxiety, depression, suicidal ideation or homicidal ideation Endo: Denies: polyuria, polydipsia, tired all the time, cold intolerance or hot flashes Fahad/Lymph: Denies: easy bruising or easy bleeding Medications/Allergies Home Medications Medication Instructions Recorded Confirmed Last Taken Type hydrocodone 7.5 mg-acetaminophen 1 - 2 tab PO Q6H PRN Pain 09/04/19 09/02/24 09/01/24 History 325 mg tablet nitroglycerin 0.4 mg sublingual 0.4 mg sublingual Q5M PRN Chest 10/07/23 09/02/24 09/02/24 Rx tablet Pain #25 tabs isosorbide mononitrate 30 mg 30 mg PO BID #180 tabs 12/28/23 09/02/24 09/01/24 Rx tablet,extended release 24 hr clopidogrel 75 mg tablet 75 mg PO DAILY #90 tabs 01/05/24 09/02/24 09/01/24 Rx blood sugar diagnostic (OneTouch #100 ea 02/23/24 09/02/24 Unknown Rx Verio test strips) gabapentin 600 mg tablet 600 mg PO TID #90 tabs 02/23/24 09/02/24 09/01/24 Rx metformin 500 mg tablet,extended 1,000 mg (2 x 500 mg) PO QAM #180 02/23/24 09/02/24 09/01/24 Rx release 24 hr tabs auto titrating c-pap 6-14 #1 ea 04/11/24 09/02/24 Unknown Rx apixaban 2.5 mg tablet (Eliquis) 2.5 mg PO BID #60 tabs 06/13/24 09/02/24 09/01/24 Rx furosemide 40 mg tablet 40 mg PO BID #60 tabs 08/09/24 09/02/24 09/01/24 Rx prednisone 20 mg tablet See Rx Instructions PO .COMPLEX 08/15/24 09/02/24 Unknown Rx PRN joint pain flare #30 tabs potassium chloride 20 mEq 20 meq PO DAILY 09/02/24 09/02/2409/01/24 History tablet,extended release(part/cryst) spironolactone 25 mg tablet 25 mg PO DAILY 09/02/24 09/02/24 09/01/24 History Allergies Allergy/AdvReac Type Severity Reaction Status Date / Time RON Inhibitors Allergy Angioedema Verified 08/14/24 07:17 diltiazem [From Cardizem] Allergy unknown Verified 08/14/24 07:17 lovastatin Allergy bone and Verified 08/14/24 07:17 muscle pain meperidine [From Demerol] Allergy itching Verified 08/14/24 07:17 methadone Allergy unknown Verified 08/14/24 07:17 pentazocine [From Talwin] Allergy nausea, Verified 08/14/24 07:17 vomiting metoprolol AdvReac Severe bradycardia Verified 08/14/24 07:17 alendronate sodium AdvReac Intermediate swelling Verified 08/14/24 07:17 [From Fosamax] codeine AdvReac Intermediate headache Verified 08/14/24 07:17 erythromycin base AdvReac Intermediate Unknown Verified 08/14/24 07:17 losartan AdvReac Intermediate dizzy Verified 08/14/24 07:17 methotrexate AdvReac Intermediate nausea/ Verified 08/14/24 07:17 diarrhea pravastatin [From Pravachol] AdvReac Intermediate cramps Verified 08/14/24 07:17 PFSH Acute 2 PFSH: Medical History Obstructive sleep apnea Diabetes mellitus type 2, controlled Diverticulosis Mesenteric ischemia Hepatomegaly Sleep related hypoxia Paroxysmal atrial fibrillation with RVR Coronary artery disease Latent tuberculosis [facility] Immunization counseling Latent tuberculosis by blood test Tenosynovitis of ankle Psoriatic arthritis High risk medication use Peroneal tendinitis of both lower legs Osteoarthritis Rotator cuff arthropathy of right shoulder Psoriasis Surgical History History of eye surgery Removal of scar tissue History of tonsillectomy History of appendectomy History of tubal ligation History of cholecystectomy H/O: hysterectomy Family History Mother Diabetes Hypertension Heart disease Brother Hypertension Sister Hypertension Grandmother Stroke Other Cancer Social History Smoking and tobacco/nicotine status: never used tobacco/nicotine Alcohol intake: never Substance/Drug Use: never Vitals/I&O/Wt Last Vital Signs Temp 99.9 F H 09/02/24 09:30 Pulse 85 09/02/24 09:30 Resp 24 H 09/02/24 09:30 BP 129/77 09/02/24 09:30 Pulse Ox 92 09/02/24 09:30 O2 Del Method Nasal Cannula 09/02/24 09:36 O2 Flow Rate 4 09/02/24 09:30 09/01/24 09/02/24 09/02/24 22:59 06:59 14:59 Intake Total 1603 / 1603 Balance 1603 / 1603 Weight last 48 hrs Weight 73.482 kg Physical Exam 2 Narrative: General: No acute distress, AO x3 HEENT: PERRLA, pupils bilaterally equal and reactive, pallors not present Chest: Normal vesicular breath sounds, no added sounds, equal good air entry bilaterally CVS: S1-S2 irregular, no murmurs, no tachycardia, no gallops, no rubs Abdomen: Soft, nontender, no organomegaly, bowel sounds present Neuro: No focal deficits, no facial deformity, AO x3, power 5/5 in all limbs Data 09/02/24 03:30 09/02/24 17:45 Micro: Microbiology 09/02/24 07:00 Blood Culture - Preliminary Blood SPECIMEN COLLECTED 09/02/24 07:02 Blood Culture - Preliminary Blood SPECIMEN COLLECTED A&P Assessment and plan (1) Acute on chronic diastolic CHF (congestive heart failure): Acute on chronic diastolic CHF CXR showing B/L infiltrates that appear most consistent with pulmonary edema Elevated BNP 1200, LE swelling L>R, though this appears to be chronic per review of past notes LAsix 40mg iv given overnight, continue with Lasix 40mg iv q12h, closely monitor I/O and kideny function to titrate further Last echo Normal left ventricular size and systolic function, EF 58%. No regional wall motion abnormalities. Grade III/IV diastolic dysfunction from March 2024 Trop series without significant delta EKG with A fib, currently rate controlled , recently taken off amiodarone A fib may have been precipitated by acute infection vs intermittent uncontrolled A fib ? tachybrady syndrome. supplemental 02 to keep sat > 92% (2) Pneumonia: given fever, infiltrates, suspicion for pneumonia start ceftriaxone 1g iv every 24 hrs and azithromycin 500mg po every day for atypical coverage sputum cx and gram stain negative COVID/ FLU/ RSV check MRSA PCR, bacterial AG panel Plan DVT ppx: on eliquis 5 mg BID Full code Attestations 2 Medical Necessity Statement*: > 2 midnight admission anticipated Coding Level of Care Code Acute Code for Chg Fwd High MDM includes number and complexity of problems actively addressed during encounter, amount and/or complexity of data reviewed/ordered and described risk of complication, morbidity or mortality of management as documented Diagnoses Acute on chronic diastolic CHF (congestive heart failure) I50.33 Pneumonia J18.9
[2024-09-02 10:33] LABS: Lactic Acid level (Lactate) 4.3 mmol/L (0.5-2.2)
--- NOTE | 2024-09-02 10:35 | ECG_ITS ---
[employer] Test Date: 2024-09-02 Pat Name: Chela Rodriguez Department: Room: 101 Gender: Female Flash Welder: : 1945 Requested By: Keith Kelley Order Number: [id number] Nessa MD: Cristo Chan M.D. Measurements Intervals [place] Rate: 75 P: 27 [place]: 144 QRS: 52 QRSD: 100 T: 28 QT: 431 QTc: 482 Interpretive Statements SINUS RHYTHM WITH OCCASIONAL SUPRAVENTRICULAR PREMATURE COMPLEXES Compared to ECG 09/02/2024 05:34:10 Atrial fibrillation no longer present Myocardial infarct finding no longer present Electronically Signed On 09-02-2024 20:11:44 CAREER SERVICES REPRESENTATIVE by Cristo Chan M.D. [id number]
[2024-09-02 11:24] LABS: Glucose Point of Care 260 mg/dL (70-110)
[2024-09-02] MEDS: azithromycin 250 mg Tablet 500 MG PO (12:01)
[2024-09-02] MEDS: pantoprazole DR 40 mg Tablet PO (12:01)
[2024-09-02] MEDS: morphine 4 mg/mL SDV 1 mL 2 MG IVP (12:02)
[2024-09-02] MEDS: gabapentin 300 mg Capsule 600 MG PO ×2 (15:30→20:43)
[2024-09-02] MEDS: HYDROcodone-acetaminophen 7.5-325 mg Tablet 1 TAB PO (15:34)
--- NOTE | 2024-09-02 15:58 | ECG_ITS ---
[employer] Test Date: 2024-09-02 Pat Name: Chela Rodriguez Department: Room: 101 Gender: Female Check Cashier: : 1945 Requested By: Chasity Hernandez Order Number: [id number] Nessa MD: Cristo Chan M.D. Measurements Intervals [place] Rate: 128 P: 0 [place]: 0 QRS: 41 QRSD: 100 T: 22 QT: 299 QTc: 437 Interpretive Statements ATRIAL FIBRILLATION WITH RAPID VENTRICULAR RESPONSE NONSPECIFIC ST & T-WAVE ABNORMALITY Compared to ECG 09/02/2024 10:35:31 T-wave abnormality now present Sinus rhythm no longer present Electronically Signed On 09-02-2024 20:10:48 ADMINISTRATIVE INTERN by Cristo Chan M.D. [id number]
[2024-09-02 17:02] LABS: ABG PCO2 40.5 mmHg (35-45); ABG PH Result 7.47 (7.35-7.45); Arterial Blood Gas Hematocrit 42.7 % (37-47); Base Excess ABG 5.6 mmol/L (-2.0-2.0); Blood Gas Allen Test Pos; Blood Gas Operator Identificat glc; Blood Gas Sample Site Radial, left; Blood Gas Sample Type Arterial; HCO3 ABG 29.7 mmol/L (22-26); Oxygen Device NC; PO2 ABG 68.3 mmHg (80.0-100.0); PO2 FiO2 Ratio Arterial Blood 189
[2024-09-02 17:08] LABS: Glucose Point of Care 237 mg/dL (70-110)
--- NOTE | 2024-09-02 17:31 | PC.NURSE ---
Afib w/rvr HR-130s to 140s Pt was sitting up in chair, reports of back pain. Hydrocodone PRN given. Noted pt HR on tele goes to 150s-160s for couple sec then has been sustaining around upper 120s to upper 130s, Afib rvr. BP-145/100. Pt looks lethargic. EKG taken. Notified dr sobia crawford dr in room and assess the pt. updated tr Yovana on pt's new condition and plans and on transfer to icu-4. all pt belongings are sent to icu.
--- NOTE | 2024-09-02 17:38 | PC.NURSE ---
hand off report to ICU Talked to MARCELA Trammell on pt's reason for ICU transfer. updated on pt's current VS.
[2024-09-02] MEDS: enoxaparin 60 mg/0.6 mL Syringe 50 MG SUBCUT (17:46)
[2024-09-02] MEDS: isosorbide mononitrate ER 30 mg Tablet PO (17:49)
[2024-09-02] MEDS: amiodarone 150 MG/100 ML PREMIX 200 MG IV (17:55)
[2024-09-02] MEDS: insulin lispro 100 unit/1 mL SUBCUT (18:01)
[2024-09-02 18:02] LABS: Glucose Point of Care 232 mg/dL (70-110)
[2024-09-02 18:15] LABS: Alanine Aminotransferase 10 U/L (0-33); Albumin Level 4.1 g/dL (3.5-5.2); Alkaline Phosphatase 70 U/L (35-105); Anion Gap 16.3 (5-19); Aspartate Amino Transferase 13 U/L (0-32); Blood Urea Nitrogen 13 mg/dL (8-23); Calcium 9.1 mg/dL (8.5-10.5); Carbon Dioxide 28 mmol/L (22-29); Chloride 96 mmol/L (98-107); Creatinine Clr Calc Pharmacy 48.3568; Globulin 3.4 g/dL (1.3-4.6); Glucose 235 mg/dL (65-115); Magnesium 1.9 mg/dL (1.7-2.3); Osmolality Calculated 292 mOsm/kg (285-295); Potassium 3.3 mmol/L (3.5-5.1); Sodium 137 mmol/L (136-145); Total Bilirubin 1.4 mg/dL (0.15-1.2); Total Protein 7.5 g/dL (6.6-8.7)
[2024-09-02 18:16] LABS: Lactate (Lactic Acid level) 1.6 mmol/L (0.5-2.2)
--- NOTE | 2024-09-02 18:19 | PC.NURSE ---
Transferred to ICU room 4 via bed, transferred to ICU bed. Left AC IV pulled out. New IV x 2 started via ultrasound per MARCELA Cleaning. A-fib noted on accountant property. Amiodarone bolus started over 30 minutes as ordered per Dr. Hernandez, cardiac pacer pads at bedside. Daughter at bedside.
[2024-09-02] MEDS: potassium chloride ER 20 mEq Tablet 40 MEQ PO ×2 (19:18→22:25)
--- NOTE | 2024-09-02 20:15 | ECG_ITS ---
[facility] Date: 2024-09-02 Pat Name: Chela Rodriguez Department: Room: ICU04 Gender: Female Claims Auditor: : 1945 Requested By: Shannan Yoon Order Number: [id number] Nessa MD: Cristo Chan M.D. Measurements Intervals [place] Rate: 153 P: 0 [place]: 0 QRS: 78 QRSD: 92 T: 29 QT: 282 QTc: 451 Interpretive Statements ATRIAL FIBRILLATION WITH RAPID VENTRICULAR RESPONSE ANTEROSEPTAL MYOCARDIAL INFARCTION , PROBABLY OLD [40+ ms Q WAVE IN V1-V4] Compared to ECG 09/02/2024 16:15:43 ST (T wave) deviation no longer present Myocardial infarct finding still present Electronically Signed On 09-03-2024 16:50:21 OCCUPATIONAL MEDICINE PHYSICIAN by Cristo Chan M.D. [id number]
--- NOTE | 2024-09-02 20:33 | PC.NURSE ---
Pt has remained in A Fib thus far in shift, rate was variable between 70-110. At aproximately 2000 rate increased to 140-160 and maintained in that rate. Patient denies any chest pain, tightness, nausea, no diaphoresis, states she feels fine, just tired . Spoke with Dr. Yoon regarding rate, EKG done, orders entered per provider, verbally instructed to not give digoxin until labs done and reported to her.
[2024-09-02] MEDS: aspirin 325 mg Tablet PO (20:43)
[2024-09-02 20:48] LABS: Phosphorus 2.6 mg/dL (2.5-4.5)
[2024-09-02 20:49] LABS: Troponin(5th) Baseline 32 ng/L (0-10)
[2024-09-02 21:10] LABS: Glucose Point of Care 148 mg/dL (70-110)
[2024-09-02] MEDS: digoxin 250 mcg/ml INJ 2 mL 500 MCG IVP (21:45)
[2024-09-02] MEDS: phosphorus 250 mg Tablet 500 MG PO (22:25)
--- NOTE | 2024-09-02 22:48 | ECG_ITS ---
[facility] Test Date: 2024-09-02 Pat Name: Chela Rodriguez Department: Room: ICU04 Gender: Female Warehouse Technician: : 1945 Requested By: Shannan Yoon Order Number: [id number] Nessa MD: Cristo Chan M.D. Measurements Intervals [place] Rate: 109 P: -87 [place]: 162 QRS: 97 QRSD: 117 T: 52 QT: 356 QTc: 480 Interpretive Statements SINUS TACHYCARDIA WITH FREQUENT ECTOPIC PREMATURE COMPLEXES IN A BIGEMINAL PATTERN BORDERLINE RIGHT AXIS DEVIATION [QRS AXIS > 90] MODERATE INTRAVENTRICULAR CONDUCTION DELAY [110+ ms QRS DURATION] NONSPECIFIC T-WAVE ABNORMALITY ABNORMAL RHYTHM ECG Compared to ECG 09/02/2024 20:22:12 Intraventricular conduction delay now present T-wave abnormality now present Atrial fibrillation no longer present Myocardial infarct finding no longer present Electronically Signed On 09-03-2024 16:52:19 BUILDING STONECUTTER by Cristo Chan M.D. [id number]
[2024-09-02 23:11] LABS: MRSA PCR OZH (swab) NOT DETECTED (Not Detecte)
[2024-09-03] VITALS (44 sets, daily range): BP systolic 120–166; BP diastolic 58–104; PULSE 59–123; RESP 17–25; TEMP 36.3–37.1; O2SAT 86–98
[2024-09-03 01:00] LABS: Basophils # 0.1 10^3/uL (0.0-0.1); Basophils % 0.5 %; Eosinophils % 0.3 %; Hematocrit 35.6 % (36-47); Lymphocytes # 0.9 10^3/uL (0.8-4.8); Lymphocytes % 9.8 %; Mean Corpuscular HGB Conc 33.7 g/dL (30-55); Mean Corpuscular Hemoglobin 29.7 pg (27-33); Mean Corpuscular Volume 88.1 fl (85-98); Mean Platelet Volume 10.7 fL (7.4-10.4); Monocytes # 0.6 10^3/uL (0.2-0.9); Monocytes % 6.2 %; Neutrophils # 7.93 10^3/uL (1.8-7.7); Neutrophils % 82.6 %; Nucleated Red Blood Cells % 0 %; Platelet Count 222 10^3/cmm (157-399); Red Blood Count 4.04 10^6/uL (3.85-5.65); Red Cell Distribution Width 12.8 % (12.1-15.1); White Blood Count 9.61 10^3/uL (3.29-11.43)
[2024-09-03 01:17] LABS: Troponin 5 6HR 35.28 ng/L (0-10); Troponin 5 6HR Delta 3.28 ng/L (0-12)
[2024-09-03 01:22] LABS: Alanine Aminotransferase 8 U/L (0-33); Albumin Level 3.8 g/dL (3.5-5.2); Alkaline Phosphatase 62 U/L (35-105); Anion Gap 14.1 (5-19); Aspartate Amino Transferase 8 U/L (0-32); Blood Urea Nitrogen 11 mg/dL (8-23); Calcium 8.7 mg/dL (8.5-10.5); Carbon Dioxide 31 mmol/L (22-29); Chloride 99 mmol/L (98-107); Creatinine Clr Calc Pharmacy 48.3568; Globulin 2.4 g/dL (1.3-4.6); Glucose 201 mg/dL (65-115); Osmolality Calculated 295 mOsm/kg (285-295); Potassium 4.1 mmol/L (3.5-5.1); Sodium 140 mmol/L (136-145); Total Bilirubin 1.4 mg/dL (0.15-1.2); Total Protein 6.2 g/dL (6.6-8.7)
--- NOTE | 2024-09-03 02:09 | ECG_ITS ---
[facility] Date: 2024-09-03 Pat Name: Chela Rodriguez Department: Room: [facility]04 Gender: Female Sales Representative Leather Goods: : 1945 Requested By: Shannan Yoon Order Number: [id number] Nessa MD: Cristo Chan M.D. Measurements Intervals [place] Rate: 81 P: 74 CT: 169 QRS: 49 QRSD: 102 T: 59 QT: 401 QTc: 466 Interpretive Statements SINUS RHYTHM NONSPECIFIC T-WAVE ABNORMALITY Compared to ECG 09/02/2024 22:48:19 Sinus tachycardia no longer present Intraventricular conduction delay no longer present T-wave abnormality still present Electronically Signed On 09-03-2024 16:51:57 ASSISTANT CHILD CARE TEACHER by Cristo Chan M.D. [email or web address] [email or web address] Provider [id number]
[2024-09-03] MEDS: enoxaparin 60 mg/0.6 mL Syringe 50 MG SUBCUT ×2 (04:52→16:49)
[2024-09-03 07:30] LABS: Glucose Point of Care 188 mg/dL (70-110)
[2024-09-03] MEDS: cefTRIAXone 1,000 mg SDV 1000 MG IVP (07:50)
[2024-09-03] MEDS: insulin lispro 100 unit/1 mL SUBCUT ×4 (08:13→21:22)
[2024-09-03] MEDS: clopidogrel 75 mg Tablet PO (08:14)
[2024-09-03] MEDS: pantoprazole DR 40 mg Tablet PO (08:14)
[2024-09-03] MEDS: azithromycin 250 mg Tablet 500 MG PO (08:14)
[2024-09-03] MEDS: isosorbide mononitrate ER 30 mg Tablet PO ×2 (08:14→17:51)
[2024-09-03] MEDS: spironolactone 25 mg Tablet PO (08:15)
[2024-09-03] MEDS: HYDROcodone-acetaminophen 7.5-325 mg Tablet 1 TAB PO ×3 (08:15→23:31)
[2024-09-03] MEDS: gabapentin 300 mg Capsule 600 MG PO ×3 (08:15→23:31)
[2024-09-03] MEDS: lanolin oint 7 gm 1 APPLIC TOPICAL (10:56)
[2024-09-03 11:24] LABS: Glucose Point of Care 142 mg/dL (70-110)
--- NOTE | 2024-09-03 12:00 | PM.PN ---
Subjective Subjective: Patient was seen this morning. She is doing well with no complaints. She is having tachybradycardia syndrome. When I was in the room she was trying to convert back to normal sinus rhythm and with drop in the 40s temporarily and then come back up with overall average appearing around 80. She did have sinus rhythm during the night when reviewing her arrhythmia recall. Currently on amiodarone drip. Blood pressure is stable. Medications: Reviewed: Yes Vitals/I&O/Wt Last Vital Signs Temp 97.9 F 09/03/24 08:00 Pulse 114 H 09/03/24 10:00 Resp 19 H 09/03/24 10:00 BP 166/74 09/03/24 10:00 Pulse Ox 93 09/03/24 10:00 O2 Del Method Nasal Cannula 09/03/24 10:00 O2 Flow Rate 4 09/03/24 10:00 09/02/24 09/03/24 09/03/24 22:59 06:59 14:59 Intake Total 220 / 1943 456.665 / 2399.665 376.424 / 376.424 Output Total 1750 / 1750 500 / 2250 Balance -1530 / 193 -43.335 / 149.665 376.424 / 376.424 Weight last 48 hrs Weight 165 lb 5.547 oz Weight 121 lb Weight 162 lb Physical Exam Narrative: General: No apparent distress, healthy appearing, well nourished HENMT: normoceophalic Neck: No carotid bruit bilaterally Muskuloskeletal: Full ROM Lymphatic: no lymphedema noted Respiratory: Normal respiratory effort, bilateral lower lobes fine crackles, no use of accessory muscles Cardio: No JVD, irregularly irregular rhythm, S1 S2 normal, no murmurs, peripheral pulses 2+ throughout GI: Normal to inspection, nondistended Extremities: Full ROM, normal, normal capillary refill, no cyanosis or edema Neuro: Alert and oriented x4, no focal motor deficits Psych: Affect normal, denies suicidal ideation, mental status grossly normal Skin: No rashes or lesions noted, no wounds Urinary Catheter Management: Green Latex Free: Cath Placed During This Visit: yes Reason for Continuing Indwelling Catheter: Accurate Measurement of Urinary Output in Critically Ill Patients Urinary Catheter Date of Insertion: 09/02/24 Urinary Catheter Time of Insertion: 16:24 Data 09/03/24 00:37 09/03/24 00:37 Micro: Microbiology 09/02/24 20:30 Bacterial Antigens - Final Urine,Voided 09/02/24 20:30 Legionella Urinary Antigen - Final Urine Catheterized 09/02/24 07:00 Blood Culture - Preliminary Blood NEGATIVE TO DATE 09/02/24 07:02 Blood Culture - Preliminary Blood NEGATIVE TO DATE A&P Assessment and plan (1) Sleep related hypoxia: (2) Elevated troponin: (3) Acute pulmonary edema: (4) Left ventricular systolic dysfunction (LVSD): (5) Atrial arrhythmia: (6) Diabetes mellitus type 2, controlled: Qualifiers: Diabetes mellitus termite renewal inspector insulin use: without termite renewal inspector use Diabetes mellitus complication status: without complication Qualified Code(s): E11.9 - Type 2 diabetes mellitus without complications (7) Dyslipidemia: Coding Level of Care Code Acute Code for [facility] Diagnoses Sleep related hypoxia G47.34 Elevated troponin R79.89 Acute pulmonary edema J81.0 Left ventricular systolic dysfunction (LVSD) I51.9 Atrial arrhythmia I49.8 Controlled type 2 diabetes mellitus without complication, without long-term current use of insulin E11.9 Diabetes mellitus long-term insulin use: without termite renewal inspector use Diabetes mellitus complication status: without complication Dyslipidemia E78.5
--- NOTE | 2024-09-03 12:04 | P.CONIM_ITS ---
<Statement entered by Cristo Chan M.D - 09/03/24 20:55> Patient was evaluated and cared for in conjunction with an advanced practice practitioner.? I personally examined the patient and reviewed the chart and all pertinent data including imaging, telemetry, and laboratory results.? I discussed the patient in detail with the advanced practice practitioner.? Please see? their note for complete consult note, testing result and agreed upon plan of care for the patient. Patient has presented with atrial fibrillation with RVR. Was taken off of amiodarone in the past because of bradycardia. Was started back on gtt yesterday. Has converted back to sinus rhythm briefly but then went back to afib. GENERAL: Patient is alert, awake and oriented x3. HEART: Regular S1 and S2 LUNGS: Mild crackles CENTRAL NERVOUS SYSTEM: Grossly nonfocal. EXTREMITIES: Lower extremities with 1+ edema bilaterally. (1) Atrial fibrillation (2) Congestive heart failure (3) Coronary artery disease (4) Elevated troponin (5) Tachy-maryann syndrome Patient is currently fluctuating between NSR and afib with varying heart rates. Will continue on amiodarone. Patient has sick sinus syndrome. As outpatient will plan on proceeding with pacemaker placement. Continue anticoagulation Continue IV diuresis. Close I and Os. Monitor renal function Thank you for involving us with care of this patient. We will continue to follow. Please call with questions. Providers/Reason For Consult 2 Consulting Physician/Specialty*: Dr. Chan Reason for Consult*: A-fib RVR tachybradycardia syndrome Requesting Physician: Dr. Singh Attending Physician: Laurie Singh MD Primary Care Provider: Devon Walton MD History of Present Illness History of Present Illness Ms. Judd is a 78-year-old female with a past medical history of A-fib, bradycardia, diastolic CHF, type 2 diabetes, CAD, hypothyroid disease, JULIANA. She came into the ER due to worsening shortness of breath over the past several days. A CT scan showed that she had moderate pleural effusion on the right and small pleural effusion on the left. Troponins mildly elevated in the 30s with negative delta. She denied any chest pain at that time. She was in A-fib RVR with rate up to 160s. She was recently taken off of her amiodarone due to bradycardia with reports from patient of HR in the 30s. She was given Lasix 60. She developed some hypotension. She had some fluid given and this improved. Currently she is in the ICU. She is requiring oxygen. Blood pressure is stable and actually a little elevated 166/74. Currently she appears to be going in and out of sinus rhythm and A-fib. It looks like she is trying to convert. She has been on an amnio drip without bradycardia. At this time she is asymptomatic. Currently she is on Eliquis 5 mg twice daily. Most recent EKG shows sinus rhythm. Medications/Allergies Home Medications Medication Instructions Recorded Confirmed Last Taken Type hydrocodone 7.5 mg-acetaminophen 1 - 2 tab PO Q6H PRN Pain 09/04/19 09/02/24 09/01/24 History 325 mg tablet nitroglycerin 0.4 mg sublingual 0.4 mg sublingual Q5M PRN Chest 10/07/23 09/02/24 09/02/24 Rx tablet Pain #25 tabs isosorbide mononitrate 30 mg 30 mg PO BID #180 tabs 12/28/23 09/02/24 09/01/24 Rx tablet,extended release 24 hr clopidogrel 75 mg tablet 75 mg PO DAILY #90 tabs 01/05/24 09/02/24 09/01/24 Rx blood sugar diagnostic (OneTouch #100 ea 02/23/24 09/02/24 Unknown Rx Verio test strips) gabapentin 600 mg tablet 600 mg PO TID #90 tabs 02/23/24 09/02/24 09/01/24 Rx metformin 500 mg tablet,extended 1,000 mg (2 x 500 mg) PO QAM #180 02/23/24 09/02/24 09/01/24 Rx release 24 hr tabs auto titrating c-pap 6-14 #1 ea 04/11/24 09/02/24 Unknown Rx apixaban 2.5 mg tablet (Eliquis) 2.5 mg PO BID #60 tabs 06/13/24 09/02/24 09/01/24 Rx furosemide 40 mg tablet 40 mg PO BID #60 tabs 08/09/24 09/02/24 09/01/24 Rx prednisone 20 mg tablet See Rx Instructions PO .COMPLEX 08/15/24 09/02/24 Unknown Rx PRN joint pain flare #30 tabs potassium chloride 20 mEq 20 meq PO DAILY 09/02/24 09/02/24 09/01/24 History tablet,extended release(part/cryst) spironolactone 25 mg tablet 25 mg PO DAILY 09/02/24 09/02/24 09/01/24 History Allergies Allergy/AdvReac Type Severity Reaction Status Date / Time RON Inhibitors Allergy Angioedema Verified 08/14/24 07:17 diltiazem [From Cardizem] Allergy unknown Verified 08/14/24 07:17 lovastatin Allergy bone and Verified 08/14/24 07:17 muscle pain meperidine [From Demerol] Allergy itching Verified 08/14/24 07:17 methadone Allergy unknown Verified 08/14/24 07:17 pentazocine [From Talwin] Allergy nausea, Verified 08/14/24 07:17 vomiting metoprolol AdvReac Severe bradycardia Verified 08/14/24 07:17 alendronate sodium AdvReac Intermediate swelling Verified 08/14/24 07:17 [From Fosamax] codeine AdvReac Intermediate headache Verified 08/14/24 07:17 erythromycin base AdvReac Intermediate Unknown Verified 08/14/24 07:17 losartan AdvReac Intermediate dizzy Verified 08/14/24 07:17 methotrexate AdvReac Intermediate nausea/ Verified 08/14/24 07:17 diarrhea pravastatin [From Pravachol] AdvReac Intermediate cramps Verified 08/14/24 07:17 Current Medications Generic Name Dose Route Start Last Admin Trade Name Freq PRN Reason Stop Dose Admin Hydrocodone Bitart/Acetaminophen 1 tab 09/02/24 12:58 09/03/24 08:15 Hydrocodone-Acetaminophen 7.5-325 Mg Tablet PO 1 tab Q6H PRN Administration Pain Azithromycin 500 mg 09/02/24 11:00 09/03/24 08:14 Azithromycin 250 Mg Tablet PO 09/06/24 10:59 500 mg DAILY JACOB Administration Protocol Ceftriaxone Sodium 1,000 mg 09/03/24 08:00 09/03/24 07:50 Ceftriaxone 1,000 Mg Sdv IVP 1,000 mg Q24H JACOB Administration Protocol Clopidogrel Bisulfate 75 mg 09/03/24 09:00 09/03/24 08:14 Clopidogrel 75 Mg Tablet PO 75 mg DAILY JACOB Administration Enoxaparin Sodium 50 mg 09/02/24 16:30 09/03/24 04:52 Enoxaparin 60 Mg/0.6 Ml Syringe SUBCUT 50 mg Q12H JACOB Administration Furosemide 40 mg 09/02/24 16:00 09/02/24 15:29 Furosemide 10 Mg/Ml Sdv 4ml IVP 40 mg Q12H JACOB Administration Gabapentin 600 mg 09/02/24 15:00 09/03/24 08:15 Gabapentin 300 Mg Capsule PO 600 mg TID JACOB Administration Amiodarone HCl/Dextrose 360 mg in 200 mls @ 0 mls/hr 09/02/24 16:24 09/03/24 11:35 Nexterone IV 0.5 mg/min .Q0M JACOB 16.67 mls/hr Administration Protocol Per Protocol Insulin Human Lispro 0 unit 09/02/24 18:00 09/03/24 08:13 Insulin Lispro 100 Unit/1 Ml SUBCUT 4 unit WM&BEDTIME JACOB Administration Protocol Isosorbide Mononitrate 30 mg 09/02/24 18:00 09/03/24 08:14 Isosorbide Mononitrate Er 30 Mg Tablet PO 30 mg BID JACOB Administration Lanolin 1 applic 09/03/24 10:50 09/03/24 10:56 Lanolin Oint 7 Gm TOPICAL 1 applic PRN PRN Administration DRYNESS Morphine Sulfate 2 mg 09/02/24 10:35 09/02/24 12:02 Morphine 4 Mg/Ml Sdv 1 Ml IVP 2 mg Q4H PRN Administration SEVERE PAIN Pantoprazole Sodium 40 mg 09/02/24 11:00 09/03/24 08:[address] 40 Mg Tablet PO 40 mg DAILY JACOB Administration Spironolactone 25 mg 09/03/24 09:00 09/03/24 08:15 Spironolactone 25 Mg Tablet PO 25 mg DAILY JACOB Administration PFSH Acute 2 PFSH: Medical History Obstructive sleep apnea Diabetes mellitus type 2, controlled Diverticulosis Mesenteric ischemia Hepatomegaly Sleep related hypoxia Paroxysmal atrial fibrillation with RVR Coronary artery disease Latent tuberculosis Completed treatment in 2020 Shingles Immunization counseling Latent tuberculosis by blood test Tenosynovitis of ankle Psoriatic arthritis High risk medication use Peroneal tendinitis of both lower legs Osteoarthritis Rotator cuff arthropathy of right shoulder Psoriasis Surgical History History of eye surgery Removal of scar tissue History of tonsillectomy History of appendectomy History of tubal ligation History of cholecystectomy H/O: hysterectomy Family History Mother Diabetes Hypertension Heart disease Brother Hypertension Sister Hypertension Grandmother Stroke Other Cancer Social History Smoking and tobacco/nicotine status: never used tobacco/nicotine Alcohol intake: never Substance/Drug Use: never Vitals/I&O/Wt Last Vital Signs Temp 97.9 F 09/03/24 08:00 Pulse 114 H 09/03/24 10:00 Resp 19 H 09/03/24 10:00 BP 166/74 09/03/24 10:00 Pulse Ox 93 09/03/24 10:00 O2 Del Method Nasal Cannula 09/03/24 10:00 O2 Flow Rate 4 09/03/24 10:00 09/02/24 09/03/24 09/03/24 22:59 06:59 14:59 Intake Total 220 / 1943 456.665 / 2399.665 376.424 / 376.424 Output Total 1750 / 1750 500 / 2250 Balance -1530 / 193 -43.335 / 149.665 376.424 / 376.424 Weight last 48 hrs Weight 165 lb 5.547 oz Weight 121 lb Weight 162 lb Physical Exam 2 Narrative: General: No apparent distress, healthy appearing, well nourished HENMT: normoceophalic Muskuloskeletal: Full ROM Lymphatic: no lymphedema noted Respiratory: Normal respiratory effort, fine crackles bilateral lower lobes, no use of accessory muscles Cardio: No JVD, irregularly irregular, S1 S2 normal, no murmurs, peripheral pulses 2+ throughout GI: Normal to inspection, nondistended Extremities: Full ROM, normal, normal capillary refill, no cyanosis, trace edema bilaterally Neuro: Alert and oriented x4, no focal motor deficits Psych: Affect normal, denies suicidal ideation, mental status grossly normal Skin: No rashes or lesions noted, no wounds Urinary Catheter Management: Green Latex Free: Cath Placed During This Visit: yes Reason for Continuing Indwelling Catheter: Accurate Measurement of Urinary Output in Critically Ill Patients Urinary Catheter Date of Insertion: 09/02/24 Urinary Catheter Time of Insertion: 16:24 Data 09/03/24 00:37 09/03/24 00:37 Micro: Microbiology 09/02/24 20:30 Bacterial Antigens - Final Urine,Voided 09/02/24 20:30 Legionella Urinary Antigen - Final Urine Catheterized 09/02/24 07:00 Blood Culture - Preliminary Blood NEGATIVE TO DATE 09/02/24 07:02 Blood Culture - Preliminary Blood NEGATIVE TO DATE A&P Assessment and plan (1) Atrial fibrillation: Qualifiers: Atrial fibrillation type: unspecified Qualified Code(s): I48.91 - Unspecified atrial fibrillation (2) Congestive heart failure: Qualifiers: Heart failure type: combined systolic and diastolic Heart failure chronicity: acute Qualified Code(s): I50.41 - Acute combined systolic (congestive) and diastolic (congestive) heart failure (3) Coronary artery disease: Qualifiers: Coronary Disease-Associated Artery/Lesion type: [place] artery [place] vs. transplanted heart: [place] heart Associated angina: without angina Qualified Code(s): I25.10 - Atherosclerotic heart disease of [place] coronary artery without angina pectoris (4) Elevated troponin: (5) Tachy-maryann syndrome: Plan Patient is doing well overall. Heart rate is better controlled. During my assessment patient attempted to convert back to normal sinus rhythm a couple times. She did drop down into the 40s temporarily but came back up. Will continue amiodarone drip as it appears patient is trying to convert back to normal sinus rhythm. No cardioversion necessary at this time. Patient is asymptomatic. Continue to monitor. If patient does well we may consider converting her to oral amiodarone. In the future, further investigation may need to be done for possible pacemake with an event monitor. This was previously ordered by patient's PCP, but has not been started yet. Agree with diuretic therapy. Thank you for allowing us to care for this very pleasant patient. Consult Attestations 2 Medical Necessity Statement: Deferred to primary. Coding Level of Care Code Acute Code for [facility] Fwd Diagnoses Atrial fibrillation I48.91 Atrial fibrillation type: unspecified Acute combined systolic and diastolic congestive heart failure I50.41 Heart failure type: combined systolic and diastolic Heart failure chronicity: acute Coronary artery disease involving [place] coronary artery of [place] heart without angina pectoris I25.10 Coronary Disease-Associated Artery/Lesion type: [place] artery [place] vs. transplanted heart: [place] heart Associated angina: without angina Elevated troponin R79.89 Tachy-maryann syndrome I49.5
--- NOTE | 2024-09-03 12:26 | PC.SOCIAL ---
IMM Update Pg. 2 of IMM Updated. Initialed, dated, and timed copy in chart. Copy provided at bedside.
[2024-09-03 16:18] LABS: Glucose Point of Care 143 mg/dL (70-110)
--- NOTE | 2024-09-03 16:39 | P.PN_ITS ---
Subjective 2 Subjective: seen today remains in afib with rvr currently on amio gtt seen by cardiology as well asymptomatic at this time, resting comfortably in recliner Vitals/I&O/Wt Last Vital Signs Temp 97.3 F L 09/03/24 12:00 Pulse 85 09/03/24 14:00 Resp 21 H 09/03/24 14:00 BP 142/66 09/03/24 14:00 Pulse Ox 91 09/03/24 14:00 O2 Del Method Room Air 09/03/24 14:00 O2 Flow Rate 4 09/03/24 10:00 09/03/24 09/03/24 09/03/24 06:59 14:59 22:59 Intake Total 456.665 / 2399.665 576.424 / 576.424 Output Total 500 / 2250 Balance -43.335 / 149.665 576.424 / 576.424 Weight last 48 hrs Weight 75 kg Weight 54.885 kg Weight 73.482 kg Physical Exam 2 Narrative: General: No acute distress, AO x3 HEENT: PERRLA, pupils bilaterally equal and reactive, pallors not present Chest: Normal vesicular breath sounds, no added sounds, equal good air entry bilaterally CVS: S1-S2 irregularly irregular, no murmurs, no gallops, no rubs Abdomen: Soft, nontender, no organomegaly, bowel sounds present Neuro: Non focal Urinary Catheter Management: Green Latex Free: Cath Placed During This Visit: yes Reason for Continuing Indwelling Catheter: Accurate Measurement of Urinary Output in Critically Ill Patients Urinary Catheter Date of Insertion: 09/02/24 Urinary Catheter Time of Insertion: 16:24 Data 09/03/24 00:37 09/03/24 00:37 Micro: Microbiology 09/02/24 20:30 Bacterial Antigens - Final Urine,Voided 09/02/24 20:30 Legionella Urinary Antigen - Final Urine Catheterized 09/02/24 07:00 Blood Culture - Preliminary Blood NEGATIVE TO DATE 09/02/24 07:02 Blood Culture - Preliminary Blood NEGATIVE TO DATE A&P Assessment and plan (1) Acute on chronic diastolic CHF (congestive heart failure): Acute on chronic diastolic CHF CXR showing B/L infiltrates that appear most consistent with pulmonary edema Elevated BNP 1200, LE swelling L>R, though this appears to be chronic per review of past notes LAsix 40mg iv given overnight, continue with Lasix 40mg iv q12h, closely monitor I/O and kideny function to titrate further Last echo Normal left ventricular size and systolic function, EF 58%. No regional wall motion abnormalities. Grade III/IV diastolic dysfunction from March 2024 Trop series without significant delta EKG with A fib, currently rate controlled , recently taken off amiodarone A fib may have been precipitated by acute infection vs intermittent uncontrolled A fib ? tachybrady syndrome. supplemental 02 to keep sat > 92% (2) Pneumonia: given fever, infiltrates, suspicion for pneumonia start ceftriaxone 1g iv every 24 hrs and azithromycin 500mg po every day for atypical coverage sputum cx and gram stain negative COVID/ FLU/ RSV check MRSA PCR, bacterial AG panel Plan DVT ppx: on eliquis 5 mg BID Full code 09/03/2024 ? Continue IV Lasix ? Continue amiodarone drip at this time and switch to oral as per protocol.. ? Potentially need a pacemaker for tachybradycardia syndrome. Patient was recently taken off of amiodarone secondary to bradycardia. ? Appreciate cardiology recommendations. Cardiology consulted. ? Continue ceftriaxone azithromycin for possible pneumonia ? Sputum culture Gram stain pending at this time ? COVID flu RSV is negative ? Continue Eliquis 5 twice daily for anticoagulation secondary to atrial fibrillation Attestations 2 Medical Necessity Statement*: A-fib with RVR on amiodarone drip. Patient requires continued hospitalization for management of above. Coding Level of Care Code Acute Code for [facility] Fwd Diagnoses Acute on chronic diastolic CHF (congestive heart failure) I50.33 Pneumonia J18.9
[2024-09-03 21:12] LABS: Glucose Point of Care 200 mg/dL (70-110)
[2024-09-04] VITALS (15 sets, daily range): BP systolic 108–148; BP diastolic 3–82; PULSE 83–98; RESP 16–36; TEMP 36.6–36.9; O2SAT 90–97
[2024-09-04] MEDS: enoxaparin 60 mg/0.6 mL Syringe 50 MG SUBCUT (04:05)
[2024-09-04 05:04] LABS: Basophils % 0.7 %; Eosinophils # 0.4 10^3/uL (0.0-0.8); Eosinophils % 7.8 %; Hematocrit 37.9 % (36-47); Lymphocytes % 18.7 %; Mean Corpuscular HGB Conc 33.2 g/dL (30-55); Mean Corpuscular Hemoglobin 29.6 pg (27-33); Mean Corpuscular Volume 89.2 fl (85-98); Mean Platelet Volume 10.7 fL (7.4-10.4); Monocytes # 0.4 10^3/uL (0.2-0.9); Monocytes % 7.6 %; Neutrophils # 3.57 10^3/uL (1.8-7.7); Neutrophils % 64.7 %; Nucleated Red Blood Cells % 0 %; Platelet Count 228 10^3/cmm (157-399); Red Blood Count 4.25 10^6/uL (3.85-5.65); Red Cell Distribution Width 12.6 % (12.1-15.1); White Blood Count 5.52 10^3/uL (3.29-11.43)
[2024-09-04 05:39] LABS: Anion Gap 13.9 (5-19); Blood Urea Nitrogen 12 mg/dL (8-23); Carbon Dioxide 27 mmol/L (22-29); Chloride 102 mmol/L (98-107); Glucose 153 mg/dL (65-115); Osmolality Calculated 291 mOsm/kg (285-295); Potassium 3.9 mmol/L (3.5-5.1); Sodium 139 mmol/L (136-145)
[2024-09-04 07:52] LABS: Glucose Point of Care 185 mg/dL (70-110)
[2024-09-04] MEDS: insulin lispro 100 unit/1 mL SUBCUT (08:18)
[2024-09-04] MEDS: pantoprazole DR 40 mg Tablet PO (08:19)
[2024-09-04] MEDS: spironolactone 25 mg Tablet PO (08:19)
[2024-09-04] MEDS: azithromycin 250 mg Tablet 500 MG PO (08:19)
[2024-09-04] MEDS: clopidogrel 75 mg Tablet PO (08:19)
[2024-09-04] MEDS: gabapentin 300 mg Capsule 600 MG PO (08:19)
[2024-09-04] MEDS: cefTRIAXone 1,000 mg SDV 1000 MG IVP (08:19)
[2024-09-04] MEDS: isosorbide mononitrate ER 30 mg Tablet PO (08:19)
[2024-09-04] MEDS: amiodarone 200 mg Tablet PO (08:37)
[2024-09-04] MEDS: HYDROcodone-acetaminophen 7.5-325 mg Tablet 1 TAB PO (08:37)
--- NOTE | 2024-09-04 10:44 | P.PN_ITS ---
<Statement entered by Cristo Chan M.D - 09/05/24 08:54> Patient was evaluated and cared for in conjunction with an advanced practice practitioner.? I personally examined the patient and reviewed the chart and all pertinent data including imaging, telemetry, and laboratory results.? I discussed the patient in detail with the advanced practice practitioner.? Please see? their note for complete progress note, testing result and agreed upon plan of care for the patient. Patient is converted back to sinus rhythm. Feeling much better. GENERAL: Patient is alert, awake and oriented x3. HEART: Regular S1 and S2 LUNGS: Clear to auscultate bilaterally. CENTRAL NERVOUS SYSTEM: Grossly nonfocal. EXTREMITIES: Lower extremities with out edema bilaterally. (1) Atrial fibrillation (2) Congestive heart failure (3) Coronary artery disease (4) Elevated troponin (5) Tachy-maryann syndrome Patient is back in sinus rhythm. Continue amiodarone. Will refer to EP as outpatient for pacemaker placement. Event monitor ordered. Thank you for involving us with care of this patient. We will continue to follow. Please call with questions. Subjective 2 Subjective: Patient doing well this morning. She is converted back to sinus rhythm. She is still on the amiodarone drip. Denies any chest pain or shortness of breath. Vital signs are stable. Medications: Reviewed: Yes Vitals/I&O/Wt Last Vital Signs Temp 97.9 F 09/04/24 04:00 Pulse 87 09/04/24 10:00 Resp 21 H 09/04/24 10:00 BP 125/70 09/04/24 10:00 Pulse Ox 92 09/04/24 10:00 O2 Del Method Room Air 09/04/24 08:09 O2 Flow Rate 2 09/03/24 18:00 09/03/24 09/04/24 09/04/24 22:59 06:59 14:59 Intake Total 420 / 996.424 320 / 1316.424 402.81 / 402.81 Output Total 800 / 800 1600 / 2400 Balance -380 / 196.424 -1280 / -1083.576 402.81 / 402.81 Weight last 48 hrs Weight 163 lb 2.273 oz Weight 165 lb 5.547 oz Physical Exam 2 Narrative: General: No apparent distress, healthy appearing, well nourished HENMT: normoceophalic Muskuloskeletal: Full ROM Lymphatic: no lymphedema noted Respiratory: Normal respiratory effort, fine crackles bilateral lower lobes, no use of accessory muscles Cardio: No JVD, irregularly irregular, S1 S2 normal, no murmurs, peripheral pulses 2+ throughout GI: Normal to inspection, nondistended Extremities: Full ROM, normal, normal capillary refill, no cyanosis, trace edema bilaterally Neuro: Alert and oriented x4, no focal motor deficits Psych: Affect normal, denies suicidal ideation, mental status grossly normal Skin: No rashes or lesions noted, no wounds Urinary Catheter Management: Green Latex Free: Cath Placed During This Visit: yes Reason for Continuing Indwelling Catheter: Accurate Measurement of Urinary Output in Critically Ill Patients Urinary Catheter Date of Insertion: 09/02/24 Urinary Catheter Time of Insertion: 16:24 Data 09/04/24 04:28 09/04/24 04:28 Micro: Microbiology 09/02/24 20:30 Bacterial Antigens - Final Urine,Voided 09/02/24 20:30 Legionella Urinary Antigen - Final Urine Catheterized 09/02/24 07:00 Blood Culture - Preliminary Blood NEGATIVE TO DATE 09/02/24 07:02 Blood Culture - Preliminary Blood NEGATIVE TO DATE A&P Assessment and plan (1) Atrial fibrillation: Qualifiers: Atrial fibrillation type: unspecified Qualified Code(s): I48.91 - Unspecified atrial fibrillation (2) Congestive heart failure: Qualifiers: Heart failure type: combined systolic and diastolic Heart failure chronicity: acute Qualified Code(s): I50.41 - Acute combined systolic (congestive) and diastolic (congestive) heart failure (3) Coronary artery disease: Qualifiers: Coronary Disease-Associated Artery/Lesion type: [place] artery [place] vs. transplanted heart: [place] heart Associated angina: without angina Qualified Code(s): I25.10 - Atherosclerotic heart disease of [place] coronary artery without angina pectoris (4) Elevated troponin: (5) Tachy-maryann syndrome: Plan Patient is doing well. She has converted back to sinus rhythm. Will transition to oral amiodarone 200 mg twice daily. From a cardiology standpoint she may be discharged with an event monitor. We will follow up in the clinic in 1 week and will refer patient for pacemaker placement. Attestations 2 Medical Necessity Statement*: Patient may be discharged from cardiology standpoint. Coding Level of Care Code Acute Code for [facility] Fwd Diagnoses Atrial fibrillation I48.91 Atrial fibrillation type: unspecified Acute combined systolic and diastolic congestive heart failure I50.41 Heart failure type: combined systolic and diastolic Heart failure chronicity: acute Coronary artery disease involving [place] coronary artery of [place] heart without angina pectoris I25.10 Coronary Disease-Associated Artery/Lesion type: [place] artery [place] vs. transplanted heart: [place] heart Associated angina: without angina Elevated troponin R79.89 Tachy-maryann syndrome I49.5
--- NOTE | 2024-09-04 12:02 | P.DS_ITS ---
Discharge Providers Date of Admission: 09/02/24 06:33 Date of Discharge: September 04, 2024 Attending Provider at Admission: Chasity Hernandez MD Attending Provider at Discharge: Laurie Singh MD Primary Care Provider: Devon Walton MD Diagnoses at Discharge Discharge Diagnosis (1) Atrial fibrillation: Status: Acute Qualifiers: Atrial fibrillation type: unspecified Qualified Code(s): I48.91 - Unspecified atrial fibrillation (2) Congestive heart failure: Status: Acute Qualifiers: Heart failure chronicity: acute Heart failure type: combined systolic and diastolic Qualified Code(s): I50.41 - Acute combined systolic (congestive) and diastolic (congestive) heart failure (3) Coronary artery disease: Status: Acute Qualifiers: Associated angina: without angina Coronary Disease-Associated Artery/Lesion type: [place] artery [place] vs. transplanted heart: [place] heart Qualified Code(s): I25.10 - Atherosclerotic heart disease of [place] coronary artery without angina pectoris (4) Elevated troponin: Status: Acute (5) Tachy-maryann syndrome: Status: Acute Reason for Visit Reason for Visit: SOB Hospital Course Hospital Course Presented with A-fib with RVR and was placed on amiodarone drip and switch to oral per protocol. She does have evidence of tachybradycardia syndrome and will need a pacemaker eventually. Cardiology evaluated the patient as well. Recommend heart monitor at discharge. Event monitor was placed. She was also given ceftriaxone azithromycin for possible pneumonia. COVID flu RSV was negative. She was sent home without antibiotics as she did have 3 days worth during hospitalization. Monia was suspected however suspicion was low. She was on room air at time of discharge and doing well. Physical Exam Narrative: General: No acute distress, AO x3 HEENT: PERRLA, pupils bilaterally equal and reactive, pallors not present Chest: Normal vesicular breath sounds, no added sounds, equal good air entry bilaterally CVS: S1-S2 irregularly irregular, no murmurs, no gallops, no rubs Abdomen: Soft, nontender, no organomegaly, bowel sounds present Neuro: Non focal Urinary Catheter Management: Green Latex Free: Cath Placed During This Visit: yes Reason for Continuing Indwelling Catheter: Accurate Measurement of Urinary Output in Critically Ill Patients Urinary Catheter Date of Insertion: 09/02/24 Urinary Catheter Time of Insertion: 16:24 Discharge Data Studies Completed and Pending Completed Studies During Hospitalization Category Date Time Status XR chest 1V portable [id number] Stat Exams 09/02/24 03:19 Completed Pending at discharge Category Date Time Status Blood Culture Stat Lab 09/02/24 07:00 Results Sputum Culture Routine Lab 09/02/24 19:25 Uncollected Radiology Impressions Chest X-Ray 09/02/24 03:19 IMPRESSION: 1. Moderate cardiomegaly with vascular congestion. 2. Mild pulmonary edema. Laboratory Results WBC 5.52 10^3/uL (3.29-11.43) 09/04/24 04:28 RBC 4.25 10^6/uL (3.85-5.65) 09/04/24 04:28 Hgb 12.60 g/dL (11.27-16.99) 09/04/24 04:28 Hct 37.9 % (36-47) 09/04/24 04:28 MCV 89.2 fl (85-98) 09/04/24 04:28 MCH 29.6 pg (27-33) 09/04/24 04:28 MCHC 33.2 g/dL (30-55) 09/04/24 04:28 RDW 12.6 % (12.1-15.1) 09/04/24 04:28 Plt Count 228 10^3/cmm (157-399) 09/04/24 04:28 MPV 10.7 fL (7.4-10.4) H 09/04/24 04:28 Neut % (Auto) 64.7 % 09/04/24 04:28 Lymph % (Auto) 18.7 % 09/04/24 04:28 [place] % (Auto) 7.6 % 09/04/24 04:28 Eos % (Auto) 7.8 % 09/04/24 04:28 Baso % (Auto) 0.7 % 09/04/24 04:28 Neut # (Auto) 3.57 10^3/uL (1.8-7.7) 09/04/24 04:28 Lymph # (Auto) 1.0 10^3/uL (0.8-4.8) 09/04/24 04:28 [place] # (Auto) 0.4 10^3/uL (0.2-0.9) 09/04/24 04:28 Eos # (Auto) 0.4 10^3/uL (0.0-0.8) 09/04/24 04:28 Baso # (Auto) 0.0 10^3/uL (0.0-0.1) 09/04/24 04:28 Nucleated RBC % (auto) 0 % 09/04/24 04:28 Nucleated RBCs # 0.0 /100WBC 09/04/24 04:28 Specimen Type Arterial 09/02/24 16:50 Sample Site Radial, left 09/02/24 16:50 ABG pH 7.47 (7.35-7.45) H 09/02/24 16:50 ABG pCO2 40.5 mmHg (35-45) 09/02/24 16:50 ABG pO2 68.3 mmHg (80.0-100.0) L 09/02/24 16:50 ABG PO2/FiO2 Ratio 189 09/02/24 16:50 ABG HCO3 29.7 mmol/L (22-26) H 09/02/24 16:50 ABG O2 Saturation 94.0 09/02/24 03:35 ABG Base Excess 5.6 mmol/L (-2.0-2.0) H 09/02/24 16:50 Ramesh Test Pos 09/02/24 16:50 A-a O2 Gradient 3.4 mmHg (5-10) L 09/02/24 03:35 Hematocrit 42.7 % (37-47) 09/02/24 16:50 Hgb O2 Saturation 91.9 % (95-100) L 09/02/24 03:35 Carboxyhemoglobin 1.4 %THgb (0.4-20.1) 09/02/24 03:35 Methemoglobin 0.9 % (0.4-1.5) 09/02/24 03:35 Total Hemoglobin 12.9 g/dL (12-16) 09/02/24 03:35 Sodium 138.0 mmol/L (131-143) 09/02/24 03:35 Potassium 3.6 mmol/L (3.5-5.0) 09/02/24 03:35 Glucose 267.0 mg/dL (70-115) H 09/02/24 03:35 Ionized Calcium 1.2 mmol/L (1.1-1.4) 09/02/24 03:35 O2 Delivery Device Nc 09/02/24 16:50 O2 Liters/Min 4.0 % 09/02/24 16:50 FiO2 36.0 % 09/02/24 16:50 Advanced Seal Delivery System ID glc 09/02/24 16:50 Sodium 139 mmol/L (136-145) 09/04/24 04:28 Potassium 3.9 mmol/L (3.5-5.1) 09/04/24 04:28 Chloride 102 mmol/L (98-107) 09/04/24 04:28 Carbon Dioxide 27 mmol/L (22-29) 09/04/24 04:28 Anion Gap 13.9 (5-19) 09/04/24 04:28 BUN 12 mg/dL (8-23) 09/04/24 04:28 Creatinine 0.5 mg/dL (0.5-0.9) 09/04/24 04:28 GFR Calculation Not Reportable 09/04/24 04:28 Glucose 153 mg/dL (65-115) H 09/04/24 04:28 POC Glucose 185 mg/dL (70-110) H 09/04/24 07:50 Calculated Osmolality 291 mOsm/kg (285-295) 09/04/24 04:28 Lactic Acid 3.6 mmol/L (0.5-2.2) H 09/02/24 07:00 Lactic Acid (Sepsis) 4.3 mmol/L (0.5-2.2) H* 09/02/24 09:38 Lactate 1.6 mmol/L (0.5-2.2) 09/02/24 17:45 Calcium 9.0 mg/dL (8.5-10.5) 09/04/24 04:28 Phosphorus 2.6 mg/dL (2.5-4.5) 09/02/24 17:45 Magnesium 2.0 mg/dL (1.7-2.3) 09/04/24 04:28 Total Bilirubin 1.4 mg/dL (0.15-1.2) H 09/03/24 00:37 AST 8 U/L (0-32) 09/03/24 00:37 ALT 8 U/L (0-33) 09/03/24 00:37 Alkaline Phosphatase 62 U/L (35-105) 09/03/24 00:37 Troponin T Baseline 32 ng/L (0-10) H 09/02/24 17:45 Troponin T 120 Minute 30.30 ng/L (0-10) H 09/02/24 20:57 Delta Troponin T -1.70 ABS# (0-10) L 09/02/24 20:57 Troponin T Hi Sens 6Hr 35.28 ng/L (0-10) H 09/03/24 00:37 Troponin T Hi Sens 6Hr Delta 3.28 ng/L (0-12) 09/03/24 00:37 NT-Pro-B Natriuret Pep 1243 pg/mL (0-450) H 09/02/24 03:30 Total Protein 6.2 g/dL (6.6-8.7) L 09/03/24 00:37 Albumin 3.8 g/dL (3.5-5.2) 09/03/24 00:37 Globulin 2.4 g/dL (1.3-4.6) 09/03/24 00:37 Urine Color Yellow (Yellow) 09/02/24 07:56 Urine Appearance Clear (CLEAR) 09/02/24 07:56 Urine pH 6.0 (5-7) 09/02/24 07:56 Ur Specific [place] 1.012 (1.005-1.030) 09/02/24 07:56 Urine Protein Trace (Negative) A 09/02/24 07:56 Urine Glucose (UA) 2+ (Normal) H 09/02/24 07:56 Urine Ketones Negative (Negative) 09/02/24 07:56 Urine Blood Negative (Negative) 09/02/24 07:56 Urine Nitrate Negative (Negative) 09/02/24 07:56 Urine Bilirubin Negative (Negative) 09/02/24 07:56 Urine Urobilinogen 0.2 mg/dL (Negative) 09/02/24 07:56 Ur Leukocyte Esterase Trace (Negative) A 09/02/24 07:56 Urine RBC 0-2 /hpf (0-2) 09/02/24 07:56 Urine WBC 0-5 /hpf (0-5) 09/02/24 07:56 Ur Squamous Epith Cells 0-5 /hpf (0-5) 09/02/24 07:56 Amorphous Sediment Not Reportable 09/02/24 07:56 Urine Bacteria None seen /hpf (NONE) 09/02/24 07:56 Hyaline Casts 1.21 /lpf 09/02/24 07:56 Nasal MRSA (PCR) Not detected (Not Detecte) 09/02/24 21:00 Coronavirus (PCR) Negative (Negative) 09/02/24 03:30 Influenza A (PCR) Negative (Negative) 09/02/24 03:30 Influenza Type B (PCR) Negative (Negative) 09/02/24 03:30 RSV (PCR) Negative (Negative) 09/02/24 03:30 Vitals Last Vital Signs Temp 97.9 F 09/04/24 04:00 Pulse 87 09/04/24 10:00 Resp 21 H 09/04/24 10:00 BP 125/70 09/04/24 10:00 Pulse Ox 92 09/04/24 10:00 O2 Del Method Room Air 09/04/24 08:09 O2 Flow Rate 2 09/03/24 18:00 Discharge Plan Discharge Patient Disposition: Home Condition: Stable Prescriptions: New amiodarone [Pacerone] 200 mg Tablet 200 mg PO BID Qty: 60 0RF Continued hydrocodone-acetaminophen 7.5-325 mg tablet 1 - 2 tab PO Q6H PRN (Reason: Pain) isosorbide mononitrate 30 mg tablet extended release 24 hr 30 mg PO BID Qty: 180 3RF gabapentin 600 mg tablet 600 mg PO TID Qty: 90 11RF metformin 500 mg tablet extended release 24 hr 1,000 mg PO QAM Qty: 180 3RF Hold Instructions: Resume on 10/13/23. (DME) OneTouch Verio test strips Strip See Rx Instructions .Route Qty: 100 3RF Rx Instructions: As directed, daily (DME) auto titrating c-pap 6-14 See Rx Instructions .Route .MEDSUPPLY Qty: 1 0RF Rx Instructions: mask and supplies as needed prednisone 20 mg tablet See Rx Instructions PO .COMPLEX PRN (Reason: joint pain flare) Qty: 30 1RF Rx Instructions: take 1 daily for 3-7 days PRN joint pain flare PO PRN; furosemide 40 mg tablet 40 mg PO BID Qty: 60 11RF Hold Instructions: Resume on 10/13/23. clopidogrel 75 mg tablet 75 mg PO DAILY Qty: 90 3RF Eliquis 2.5 mg tablet 2.5 mg PO BID Qty: 60 11RF nitroglycerin 0.4 mg Tablet, Sublingual 0.4 mg sublingual Q5M PRN (Reason: Chest Pain) Qty: 25 0RF spironolactone 25 mg tablet 25 mg PO DAILY potassium chloride 20 mEq tablet,ER particles/crystals 20 meq PO DAILY Discharge Orders: Discharge Order (Routine); Ordered 09/04/24 Ordered By: Laurie Singh Other Ambulatory Orders: MCT/Event Monitor 30 Days (Routine) Timeframe: 1 Day Facility: [facility] - Location: Radiology Ordered By: Laurie Singh Referrals: Swetha Ferreira NP [Nurse Practitioner] - 09/12/24 2:15 pm Devon Walton MD [Primary Care Provider] - 09/11/24 1:30 pm Discharge Diet: Cardiac and Diabetic Discharge Activity: Resume usual activity Patient Instructions: Amoxicillin/Clavulanate Potassium (By mouth), Amiodarone (By mouth), Heart Failure (DC), Viral Pneumonia (DC), Sick Sinus Syndrome (DC), Opioid Safety Discharge Attestations Time Spent in Discharge Care*: greater than 30 min Quality Metrics Clinical Quality Measures [ No reported AMI, CVA or VTE this stay] Coding Level of Care Code Acute Code for Chg Fwd Diagnoses Atrial fibrillation I48.91 Atrial fibrillation type: unspecified Acute combined systolic and diastolic congestive heart failure I50.41 Heart failure chronicity: acute Heart failure type: combined systolic and diastolic Coronary artery disease involving [place] coronary artery of [place] heart without angina pectoris I25.10 Associated angina: without angina Coronary Disease-Associated Artery/Lesion type: [place] artery [place] vs. transplanted heart: [place] heart Elevated troponin R79.89 Tachy-maryann syndrome I49.5
[2024-09-04 12:04] LABS: Glucose Point of Care 122 mg/dL (70-110)
--- NOTE | 2024-09-04 12:42 | PC.NURSE ---
Patient received DC orders, all IVs and noel removed. Prescriptions sent to patients preferred pharmacy. All discharge instructions explained to patient, who verbalized understanding. No new questions at this time. Follow up appointments made.
--- NOTE | 2024-09-04 13:08 | PC.NURSE ---
patient left for heart care services at 1259 via w/c with family for event monitor
== END 2024-09-04 12:59 | disposition home or self-care (01) | DRG 291 ==
LOC: ER 07:43 → CSU 07:56 → ICU 17:09
PROVIDERS: Emergency Medicine; Internal Medicine; Admitting Provider Student in an Organized Health Care Education/Training Program; Emergency Provider Emergency Medicine; PCP Family Medicine; Visit Provider Internal Medicine
DX: I11.0 Hypertensive heart disease with heart failure (principal); I50.33 Acute on chronic diastolic (congestive) heart failure; J18.9 Pneumonia, unspecified organism; I48.0 Paroxysmal atrial fibrillation; I25.10 Atherosclerotic heart disease of native coronary artery without angina pectoris; I49.5 Sick sinus syndrome; R79.89 Other specified abnormal findings of blood chemistry; E03.9 Hypothyroidism, unspecified; G47.33 Obstructive sleep apnea (adult) (pediatric); E11.9 Type 2 diabetes mellitus without complications; I95.9 Hypotension, unspecified; L40.50 Arthropathic psoriasis, unspecified; Z79.891 Long term (current) use of opiate analgesic; Z79.84 Long term (current) use of oral hypoglycemic drugs; Z79.02 Long term (current) use of antithrombotics/antiplatelets; Z79.01 Long term (current) use of anticoagulants; Z86.15 Personal history of latent tuberculosis infection; Z90.49 Acquired absence of other specified parts of digestive tract; Z90.710 Acquired absence of both cervix and uterus; Z83.3 Family history of diabetes mellitus; Z82.49 Family history of ischemic heart disease and other diseases of the circulatory system; Z82.3 Family history of stroke
CPT/HCPCS: 36415; 36416; 36600; 51702; 71045; 80048; 80051; 80053; 81001; 82330; 82803; 82805; 82962; 83605; 83735; 83880; 84100; 84484; 85025; 86403; 87040; 87449; 87637; 93005; 94640; 96365; 96372; 96374; 96375; 96376; 99285; A4222; J0283; J0360; J0696; J1160; J1650; J1815; J1940; J2270; J3490; J7030; Q0144

== ENCOUNTER → 2024-09-12 14:38 | Outpatient (BNVA) | payer MEDICARE, SELFPAY | PROVIDERS: PCP Family Medicine; Visit Provider Nurse Practitioner Family | DX: I49.8 Other specified cardiac arrhythmias (principal) | CPT/HCPCS: 93005 ==

== ENCOUNTER 2024-09-12 16:26 | Inpatient (IN) | payer MEDICARE, SELFPAY ==
[2024-09-12 16:35] VITALS: BP 152/71; PULSE 115; RESP 24; TEMP 36.7; O2SAT 94
[2024-09-12] MEDS: FUROsemide 40 mg Tablet PO (17:29)
[2024-09-12] MEDS: isosorbide mononitrate ER 30 mg Tablet PO (17:29)
[2024-09-12] MEDS: amiodarone 200 mg Tablet PO (17:29)
--- NOTE | 2024-09-12 17:29 | PM.HP ---
Providers/Chief Complaint Admitting Physician: Cristo Chan M.D Primary Care Provider: Devon Walton MD Chief Complaint: RM 105 History of Present Illness Chela Rodriguez is a 78 year old female with past medical history of atrial fibrillation, possible sick sinus syndrome who was recently discharged from hospital when he had A-fib with RVR. She was sent home on sidehand. mid level clinician is showing heart rates going into 160s frequently. Patient has noticed that in between and there have been times when heart rate drops down into 40s. She is of cardiology office today and was again in A-fib with RVR. Was directly admitted for possible cardioversion. Right now denies complaints of chest pain. Does feel dyspnea on exertion and irregular heart rhythm. Review of Systems General: Reports: 10 or more systems reviewed and unremarkable except in HPI and below Card: Reports: palpitations, irregular heart rhythm and dyspnea on exertion; Denies: chest pain, swelling of feet/ankles, lightheadedness, syncope or pre-syncope Resp: Denies: dyspnea, productive cough or non-productive cough GI: Denies: hematochezia [place]/Lymph: Denies: easy bleeding Medications/Allergies Home Medications Medication Instructions Recorded Confirmed Last Taken Type hydrocodone 7.5 mg-acetaminophen 1 - 2 tab PO Q6H PRN Pain 09/04/19 09/12/24 09/01/24 History 325 mg tablet nitroglycerin 0.4 mg sublingual 0.4 mg sublingual Q5M PRN Chest 10/07/23 09/12/24 09/02/24 Rx tablet Pain #25 tabs isosorbide mononitrate 30 mg 30 mg PO BID #180 tabs 12/28/23 09/12/24 09/01/24 Rx tablet,extended release 24 hr clopidogrel 75 mg tablet 75 mg PO DAILY #90 tabs 01/05/24 09/12/24 09/01/24 Rx blood sugar diagnostic (OneTouch #100 ea 02/23/24 09/12/24 Unknown Rx Verio test strips) gabapentin 600 mg tablet 600 mg PO TID #90 tabs 02/23/24 09/12/24 09/01/24 Rx metformin 500 mg tablet,extended 1,000 mg (2 x 500 mg) PO QAM #180 06/20/24 01/08/25 12/28/24 Rx release 24 hr tabs auto titrating c-pap 6-14 #1 ea 04/11/24 09/12/24 Unknown Rx apixaban 2.5 mg tablet (Eliquis) 2.5 mg PO BID #60 tabs 06/13/24 09/12/24 09/01/24 Rx furosemide 40 mg tablet 40 mg PO BID #60 tabs 08/09/24 09/12/24 09/01/24 Rx prednisone 20 mg tablet See Rx Instructions PO .COMPLEX 08/15/24 09/12/24 Unknown Rx PRN joint pain flare #30 tabs potassium chloride 20 mEq 20 meq PO DAILY 09/02/24 09/12/24 09/01/24 History tablet,extended release(part/cryst) spironolactone 25 mg tablet 25 mg PO DAILY 09/02/24 09/12/24 09/01/24 History amiodarone 200 mg tablet (Pacerone) 200 mg PO BID #60 tabs 09/04/24 09/12/24 Unknown Rx Allergies Allergy/AdvReac Type Severity Reaction Status Date / Time RON Inhibitors Allergy Angioedema Verified 09/12/24 14:20 diltiazem [From Cardizem] Allergy unknown Verified 09/12/24 14:20 lovastatin Allergy bone and Verified 09/12/24 14:20 muscle pain meperidine [From Demerol] Allergy itching Verified 09/12/24 14:20 methadone Allergy unknown Verified 09/12/24 14:20 pentazocine [From Talwin] Allergy nausea, Verified 09/12/24 14:20 vomiting metoprolol AdvReac Severe bradycardia Verified 09/12/24 14:20 alendronate sodium AdvReac Intermediate swelling Verified 09/12/24 14:20 [From Fosamax] codeine AdvReac Intermediate headache Verified 09/12/24 14:20 erythromycin base AdvReac Intermediate Unknown Verified 09/12/24 14:20 losartan AdvReac Intermediate dizzy Verified 09/12/24 14:20 methotrexate AdvReac Intermediate nausea/ Verified 09/12/24 14:20 diarrhea pravastatin [From Pravachol] AdvReac Intermediate cramps Verified 09/12/24 14:20 PFSH Acute PFSH: Medical History (Updated 09/13/24 @ 08:01 by Cristo Chan M.D) Paroxysmal atrial fibrillation with RVR Obstructive sleep apnea Diabetes mellitus type 2, controlled Diverticulosis Mesenteric ischemia Hepatomegaly Sleep related hypoxia Coronary artery disease Latent tuberculosis Completed treatment in 2020 Shingles Immunization counseling Latent tuberculosis by blood test Tenosynovitis of ankle Psoriatic arthritis High risk medication use Peroneal tendinitis of both lower legs Osteoarthritis Rotator cuff arthropathy of right shoulder Psoriasis Surgical History History of eye surgery Removal of scar tissue History of tonsillectomy History of appendectomy History of tubal ligation History of cholecystectomy H/O: hysterectomy Family History Mother Diabetes Hypertension Heart disease Brother Hypertension Sister Hypertension Grandmother Stroke Other Cancer Social History Smoking and tobacco/nicotine status: never used tobacco/nicotine Alcohol intake: never Substance/Drug Use: never Physical Exam Narrative: GENERAL: Patient is alert, awake and oriented x3. [] NECK: No jugular vein distension. [] HEENT: No cyanosis. No icterus. No pallor. [] HEART: Regular S1 and S2. No murmur, rub or gallop. [] LUNGS: Clear to auscultate bilaterally. [] CENTRAL NERVOUS SYSTEM: Grossly nonfocal. [] EXTREMITIES: Lower extremities with 1+ edema bilaterally. Data 09/12/24 18:11 09/12/24 18:11 A&P Assessment and plan (1) Atrial fibrillation: Qualifiers: Atrial fibrillation type: unspecified Qualified Code(s): I48.91 - Unspecified atrial fibrillation (2) Congestive heart failure: Qualifiers: Heart failure type: combined systolic and diastolic Heart failure chronicity: acute Qualified Code(s): I50.41 - Acute combined systolic (congestive) and diastolic (congestive) heart failure (3) Coronary artery disease: Qualifiers: Coronary Disease-Associated Artery/Lesion type: [place] artery [place] vs. transplanted heart: [place] heart Associated angina: without angina Qualified Code(s): I25.10 - Atherosclerotic heart disease of [place] coronary artery without angina pectoris (4) Tachy-maryann syndrome: (5) Paroxysmal atrial fibrillation with RVR: Plan Patient is in A-fib with RVR. Plan for MARCIAL cardioversion tomorrow. N.p.o. past midnight. Will uptitrate Eliquis dose to 5 mg twice daily. Previously secondary to rectal bleeding dose was reduced. No further bleeding complications. Continue amiodarone. Patient has tachybradycardia syndrome. When she converts back to sinus rhythm she becomes with quite bradycardic. Will need pacemaker placement. Will also benefit from ablation evaluation Attestations Medical Necessity Statement*: Care expected to cross 2 midnights. Coding Level of Care Code Acute Code for [facility] Fwd Diagnoses Atrial fibrillation I48.91 Atrial fibrillation type: unspecified Acute combined systolic and diastolic congestive heart failure I50.41 Heart failure type: combined systolic and diastolic Heart failure chronicity: acute Coronary artery disease involving [place] coronary artery of [place] heart without angina pectoris I25.10 Coronary Disease-Associated Artery/Lesion type: [place] artery [place] vs. transplanted heart: [place] heart Associated angina: without angina Tachy-maryann syndrome I49.5 Paroxysmal atrial fibrillation with RVR I48.0
[2024-09-12 17:56] LABS: Glucose Point of Care 168 mg/dL (70-110)
[2024-09-12 18:47] VITALS: BMI 31.8
[2024-09-12 18:49] LABS: Basophils # 0.1 10^3/uL (0.0-0.1); Basophils % 0.6 %; Eosinophils # 0.3 10^3/uL (0.0-0.8); Eosinophils % 3.4 %; Hematocrit 35.8 % (36-47); Lymphocytes # 1.7 10^3/uL (0.8-4.8); Lymphocytes % 20.1 %; Mean Corpuscular HGB Conc 33.5 g/dL (30-55); Mean Corpuscular Hemoglobin 29.1 pg (27-33); Mean Corpuscular Volume 86.7 fl (85-98); Mean Platelet Volume 10.6 fL (7.4-10.4); Monocytes # 0.6 10^3/uL (0.2-0.9); Monocytes % 7.6 %; Neutrophils % 67.8 %; Nucleated Red Blood Cells % 0 %; Platelet Count 365 10^3/cmm (157-399); Red Blood Count 4.13 10^6/uL (3.85-5.65); Red Cell Distribution Width 12.3 % (12.1-15.1); White Blood Count 8.26 10^3/uL (3.29-11.43)
[2024-09-12 19:04] LABS: Anion Gap 15.7 (5-19); Blood Urea Nitrogen 16 mg/dL (8-23); Calcium 9.8 mg/dL (8.5-10.5); Carbon Dioxide 29 mmol/L (22-29); Chloride 95 mmol/L (98-107); Creatinine Clr Calc Pharmacy 57.2799; Glucose 151 mg/dL (65-115); Magnesium 1.9 mg/dL (1.7-2.3); Osmolality Calculated 286 mOsm/kg (285-295); Potassium 3.7 mmol/L (3.5-5.1); Sodium 136 mmol/L (136-145)
[2024-09-12 19:27] VITALS: BP 121/56; PULSE 88; RESP 18; TEMP 36.9; O2SAT 98
[2024-09-12 19:56] VITALS: BP 121/65; PULSE 109; RESP 23; O2SAT 93
[2024-09-12] MEDS: gabapentin 300 mg Capsule 600 MG PO (20:22)
[2024-09-12] MEDS: apixaban 5 mg Tablet PO (20:22)
[2024-09-12 20:41] LABS: Glucose Point of Care 199 mg/dL (70-110)
[2024-09-12 20:51] VITALS: BP 198/114; PULSE 70; RESP 20; TEMP 36.4; O2SAT 96
[2024-09-13] VITALS: BP 123/81; PULSE 91; RESP 15; TEMP 36.5; O2SAT 99
[2024-09-13] MEDS: HYDROcodone-acetaminophen 7.5-325 mg Tablet PO ×2 (03:18→14:44)
--- NOTE | 2024-09-13 03:53 | ECG_ITS ---
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 Measurements Intervals [place] Rate: 80 P: 73 KS: 180 QRS: 26 QRSD: 106 T: 34 QT: 446 QTc: 517 Interpretive Statements SINUS RHYTHM WITH OCCASIONAL SUPRAVENTRICULAR PREMATURE COMPLEXES POSSIBLE INFERIOR MYOCARDIAL INFARCTION , PROBABLY OLD [30 ms Q WAVE IN II/aVF] Compared to ECG 09/12/2024 14:45:51 Sinus tachycardia no longer present Myocardial infarct finding still present Electronically Signed On 09-13-2024 18:23:58 LOAN ANALYST by Jade Vargas M.D. [email or web address]
[2024-09-13 04:00] VITALS: BP 134/71; PULSE 77; RESP 24; O2SAT 95
--- NOTE | 2024-09-13 04:08 | PC.NURSE ---
Patient converted to sinus rhythm. Cardiac strip was printed and EKG performed and were posted in patient chart.
--- NOTE | 2024-09-13 06:11 | PC.NURSE ---
Dr Chan gave orders to hold patient metformin XR 1000mg.
[2024-09-13 06:25] LABS: Glucose Point of Care 185 mg/dL (70-110)
[2024-09-13 07:20] VITALS: BP 140/79; PULSE 90; RESP 19; TEMP 36.9; O2SAT 97
--- NOTE | 2024-09-13 08:26 | USCV_ITS ---
Chela Rodriguez Age: 78 Gender: F : 1945 Exam Date: 09/13/2024 09:19 Ordering Phys: Naa Cobb Technologist: CT Exam Location: [facility]_ Indication: afib BP: 140 / 79 HR: 87 Rhythm: Sinus Technical Quality: Adequate MEASUREMENTS (Male / Female) Normal Values 2D ECHO LVOT Diameter 2.0 cm LV Ejection Fraction MOD 4C 53.2 % LV Ejection Fraction MOD 2C 50.5 % LV Ejection Fraction 2C AL 52.4 % LA Diameter 4.9 cm LA Sys Volume AL 69.7 cm cubed LA Sys Volume Index AL 37.4 cm cubed/m squared Aorta at Sinotubular Diameter 2.7 cm IVC Diameter 2.3 cm M-MODE LA Ao Ratio MM 1.7 AV Cusp Separation MM 1.9 cm DOPPLER AV Peak Velocity 178.0 cm/s LVOT Peak Velocity 108.0 cm/s AV Area Cont Eq vti 1.9 cm squared AV Area Cont Eq pk 2.0 cm squared MV Peak Velocity 417.8 cm/s MV Area PHT 4.1 cm squared TV Peak Velocity 313.8 cm/s TR Peak Velocity 317.0 cm/s TR Peak Gradient 40.2 mmHg TR Mean Velocity 238.0 cm/s TR Mean Gradient 24.7 mmHg TR Velocity Time Integral 86.4 cm TV Peak E Velocity 87.0 cm/s PV Peak Velocity 162.5 cm/s FINDINGS Left Ventricle Left ventricle is normal in size. LV systolic function is normal with EF 50 to 55%. No regional wall motion abnormalities are seen. Right Ventricle Normal in size and function Right Atrium Normal in size Left Atrium Dilated. Mitral Valve Moderate to severe mitral annular calcification seen. Mild mitral regurgitation. Aortic Valve Aortic valve is thickened. No significant stenosis or regurgitation. Tricuspid Valve Mild tricuspid regurgitation. Insufficient TR jet to calculate RVSP Pulmonic Valve Mild pulmonic regurgitation Pericardium Normal Aorta Normal in size IVC Appears to be dilated CONCLUSIONS LV systolic function is normal with EF of 50-55%. Left atrial dilation. Mild mitral regurgitation. Mild tricuspid regurgitation Mild pulmonic regurgitation IVC appears to be dilated. Cristo Chan MD (Electronically Signed) Final Date: 13 September 2024 11:45 S
[2024-09-13] MEDS: FUROsemide 40 mg Tablet PO (08:42)
[2024-09-13] MEDS: amiodarone 200 mg Tablet PO (08:42)
[2024-09-13] MEDS: potassium chloride ER 20 mEq Tablet PO (08:42)
[2024-09-13] MEDS: spironolactone 25 mg Tablet PO (08:42)
[2024-09-13] MEDS: gabapentin 300 mg Capsule 600 MG PO ×2 (08:42→14:42)
[2024-09-13] MEDS: clopidogrel 75 mg Tablet PO (08:42)
[2024-09-13] MEDS: apixaban 5 mg Tablet PO (08:42)
[2024-09-13] MEDS: isosorbide mononitrate ER 30 mg Tablet PO (08:42)
--- NOTE | 2024-09-13 08:53 | P.PN_ITS ---
<Statement entered by Cristo Chan M.D - 09/13/24 12:32> Patient was evaluated and cared for in conjunction with an advanced practice practitioner.? I personally examined the patient and reviewed the chart and all pertinent data including imaging, telemetry, and laboratory results.? I discussed the patient in detail with the advanced practice practitioner.? Please see? their note for complete progress note, testing results and agreed upon plan of care for the patient. Patient has on and off palpitation. No chest pain. GENERAL: Patient is alert, awake and oriented x3. HEART: Irregularly irregular LUNGS: Clear to auscultate bilaterally. CENTRAL NERVOUS SYSTEM: Grossly nonfocal. EXTREMITIES: Lower extremities with out edema bilaterally ASSESSMENT AND PLAN (1) Atrial fibrillation: (2) Congestive heart failure: (3) Coronary artery disease: (4) Tachy-maryann syndrome: (5) Paroxysmal atrial fibrillation with RVR: Plan was for MARCIAL cardioversion today. However overnight patient converted spontaneously back to sinus rhythm. She is going back and forth between sinus rhythm and A-fib. No benefit of electrical cardioversion as patient will most likely go back into A-fib. She has tachybrady syndrome as once she converts to sinus rhythm tends to become bradycardic. We are holding rate controlling medications. On amiodarone currently. She will benefit from electrophysiology evaluation for possible pacemaker placement. If she is a candidate for A-fib ablation will also get benefit from that. For now continue amiodarone and Eliquis. Transfer accepted at [facility]. ECHO performed shows normal LV systolic function Thank you for involving us with care of this patient. Please call with questions. Subjective 2 Subjective: Overnight she has been in sinus rhythm and atrial fibrillation with RVR, rates in the 70-90 bpm while in sinus but running 120-130's while in atrial fibrillation. CBC and BMP from last night unremarkable, magnesium level 1.9. We have discussed transfer to [place] for catheter based ablation for atrial fibrillation, with possibility of permanent pacemaker placement due to tachybrady syndrome. She is in agreement and Dr Chan will discuss with cardiology there. Will obtain echocardiogram prior to transfer, to assess LV function; she has history of mild to moderate mitral regurgitation. She appears euvolemic this morning. No chest pain. Blood pressure fairly well controlled. Vitals/I&O/Wt Last Vital Signs Temp 98.4 F 09/13/24 07:20 Pulse 90 09/13/24 07:20 Resp 19 H 09/13/24 07:20 BP 140/79 09/13/24 07:20 Pulse Ox 97 09/13/24 07:20 O2 Del Method Nasal Cannula 09/13/24 07:20 09/12/24 09/13/24 09/13/24 22:59 06:59 14:59 Intake Total 240 / 240 0 / 240 Output Total 500 / 1250 750 / 1250 Balance -260 / -1010 -750 / -1010 Weight last 48 hrs Weight 173 lb 14.4 oz Weight 173 lb 14.4 oz Weight 173 lb 14.4 oz Physical Exam 2 Const: COMMON NORMALS: no acute distress and patient oriented x3 Chest: COMMONS NORMALS: normal inspection of the chest and normal palpation of entire chest wall CHEST: Yes Symmetrical chest wall rise Resp: COMMON NORMALS: normal respiratory effort, No retractions, No use of accessory muscles and clear to auscultation bilaterally EFFORT & INSPECTION: Yes symmetric chest movement AUSCULTATION: clear to auscultation bilaterally Cardio: COMMON NORMALS: S2 normal heart sound present, No gallops present (Cardio), No clicks present (Cardio), No murmurs present (Cardio) and No rub (Cardio) RHYTHM: abnormal rhythm irregularly irregular HEART SOUNDS: S2 normal heart sound present and Murmur heart sound present systolic Intensity: II/ PERIPHERAL PULSES: radial pulses present, posterior tibial pulses present and dorsalis pedis present Neuro: COMMON NORMALS: patient oriented x3 and moves all extremities Psych: COMMON NORMALS: mental status grossly normal and cooperative Data 09/12/24 18:11 09/12/24 18:11 A&P Assessment and plan (1) Atrial fibrillation: Qualifiers: Atrial fibrillation type: unspecified Qualified Code(s): I48.91 - Unspecified atrial fibrillation (2) Coronary artery disease: Qualifiers: Coronary Disease-Associated Artery/Lesion type: [place] artery [place] vs. transplanted heart: [place] heart Associated angina: without angina Qualified Code(s): I25.10 - Atherosclerotic heart disease of [place] coronary artery without angina pectoris (3) Congestive heart failure: Qualifiers: Heart failure type: combined systolic and diastolic Heart failure chronicity: acute Qualified Code(s): I50.41 - Acute combined systolic (congestive) and diastolic (congestive) heart failure (4) Tachy-maryann syndrome: Plan Paroxysmal atrial fibrillation overnight, cardioversion cancelled. She is stable currently. Will obtain echocardiogram and plan for transfer to [place] for possible catheter based ablation and possible pacemaker placement. Attestations 2 Medical Necessity Statement*: plan on transfer today Coding Level of Care Code Acute Code for [facility] Fwd Diagnoses Atrial fibrillation I48.91 Atrial fibrillation type: unspecified Coronary artery disease involving [place] coronary artery of [place] heart without angina pectoris I25.10 Coronary Disease-Associated Artery/Lesion type: [place] artery [place] vs. transplanted heart: [place] heart Associated angina: without angina Acute combined systolic and diastolic congestive heart failure I50.41 Heart failure type: combined systolic and diastolic Heart failure chronicity: acute Tachy-maryann syndrome I49.5
--- NOTE | 2024-09-13 09:19 | P.TS_ITS ---
<Statement entered by Cristo Chan M.D - 09/13/24 12:26> Patient was evaluated and cared for in conjunction with an advanced practice practitioner.? I personally examined the patient and reviewed the chart and all pertinent data including imaging, telemetry, and laboratory results.? I discussed the patient in detail with the advanced practice practitioner.? Please see? their note for complete transfer summary, testing results and agreed upon plan of care for the patient. Transfer Summary Providers Date of Admission: 09/12/24 16:26 Date of Discharge/Transfer: 09/13/24 Attending Provider at Admission: Cristo Chan M.D Attending Provider at Transfer: Cristo Chan M.D Primary Care Provider: Devon Walton MD Transfer Plans: Anticipated date of transfer: 09/13/24 . Receiving Facility: [facility] . Receiving Provider: Dr Perez hospitalist . Diagnoses at Discharge Discharge Diagnosis (1) Coronary artery disease: Status: Acute Qualifiers: Associated angina: without angina Coronary Disease-Associated Artery/Lesion type: [place] artery [place] vs. transplanted heart: [place] heart Qualified Code(s): I25.10 - Atherosclerotic heart disease of [place] coronary artery without angina pectoris (2) Congestive heart failure: Status: Acute Qualifiers: Heart failure chronicity: acute Heart failure type: combined systolic and diastolic Qualified Code(s): I50.41 - Acute combined systolic (congestive) and diastolic (congestive) heart failure (3) Tachy-maryann syndrome: Status: Acute (4) Paroxysmal atrial fibrillation with RVR: Status: Acute Reason for Visit Reason for Visit RM 105 Brief History: Chela Rodriguez is a 78 year old female with past medical history of atrial fibrillation, possible sick sinus syndrome who was recently discharged from hospital when he had A-fib with RVR. She was sent home on nursing director. anglesmith is showing heart rates going into 160s frequently. Patient has noticed that in between and there have been times when heart rate drops down into 40s. She is of cardiology office today and was again in A-fib with RVR. Was directly admitted for possible cardioversion. Right now denies complaints of chest pain. Does feel dyspnea on exertion and irregular heart rhythm. Hospital Course Hospital Course Overnight patient has spontaneously converted from atrial fibrillation to sinus rhythm with heart rates running 40-160's. Since we are unable to cardiovert her this morning as she was spontaneously converting to sinus rhythm and there was no benefit to cardioversion for her. We have discussed transfer to [facility] cardiology due to tachybrady syndrome. She will be evaluated by electrophysiology in [place] for possible permanent pacemaker implantation and catheter ablation. She in on oral amiodarone 200mg twice a day. Her anticoagulation with apixaban was increased to 5mg BID on admission last night. She spontaneously converted to sinus rhythm last night and has been in atrial fibrillation intermittently overnight and this morning. Physical Exam Const: COMMON NORMALS: no acute distress and patient oriented x3 Chest: COMMONS NORMALS: normal inspection of the chest and normal palpation of entire chest wall CHEST: Yes Symmetrical chest wall rise Resp: COMMON NORMALS: normal respiratory effort, No retractions, No use of accessory muscles and clear to auscultation bilaterally EFFORT & INSPECTION: Yes symmetric chest movement AUSCULTATION: clear to auscultation bilaterally Cardio: COMMON NORMALS: S2 normal heart sound present, No gallops present (Cardio), No clicks present (Cardio), No murmurs present (Cardio) and No rub (Cardio) RHYTHM: abnormal rhythm irregularly irregular HEART SOUNDS: S2 normal heart sound present and Murmur heart sound present systolic Intensity: II/ PERIPHERAL PULSES: radial pulses present, posterior tibial pulses present and dorsalis pedis present Neuro: COMMON NORMALS: patient oriented x3 and moves all extremities Psych: COMMON NORMALS: mental status grossly normal and cooperative TS Data Studies Completed and Pending Pending at discharge Category Date Time Status CV. echo complete* [id number] Routine Ultrasound 09/13/24 08:26 Ordered Laboratory Last Values WBC 8.26 10^3/uL (3.29-11.43) 09/12/24 18:11 RBC 4.13 10^6/uL (3.85-5.65) 09/12/24 18:11 Hgb 12.00 g/dL (11.27-16.99) 09/12/24 18:11 Hct 35.8 % (36-47) L 09/12/24 18:11 MCV 86.7 fl (85-98) 09/12/24 18:11 MCH 29.1 pg (27-33) 09/12/24 18:11 MCHC 33.5 g/dL (30-55) 09/12/24 18:11 RDW 12.3 % (12.1-15.1) 09/12/24 18:11 Plt Count 365 10^3/cmm (157-399) 09/12/24 18:11 MPV 10.6 fL (7.4-10.4) H 09/12/24 18:11 Neut % (Auto) 67.8 % 09/12/24 18:11 Lymph % (Auto) 20.1 % 09/12/24 18:11 [place] % (Auto) 7.6 % 09/12/24 18:11 Eos % (Auto) 3.4 % 09/12/24 18:11 Baso % (Auto) 0.6 % 09/12/24 18:11 Neut # (Auto) 5.60 10^3/uL (1.8-7.7) 09/12/24 18:11 Lymph # (Auto) 1.7 10^3/uL (0.8-4.8) 09/12/24 18:11 [place] # (Auto) 0.6 10^3/uL (0.2-0.9) 09/12/24 18:11 Eos # (Auto) 0.3 10^3/uL (0.0-0.8) 09/12/24 18:11 Baso # (Auto) 0.1 10^3/uL (0.0-0.1) 09/12/24 18:11 Nucleated RBC % (auto) 0 % 09/12/24 18:11 Nucleated RBCs # 0.0 /100WBC 09/12/24 18:11 Sodium 136 mmol/L (136-145) 09/12/24 18:11 Potassium 3.7 mmol/L (3.5-5.1) 09/12/24 18:11 Chloride 95 mmol/L (98-107) L 09/12/24 18:11 Carbon Dioxide 29 mmol/L (22-29) 09/12/24 18:11 Anion Gap 15.7 (5-19) 09/12/24 18:11 BUN 16 mg/dL (8-23) 09/12/24 18:11 Creatinine 0.7 mg/dL (0.5-0.9) 09/12/24 18:11 GFR Calculation Not Reportable 09/12/24 18:11 Glucose 151 mg/dL (65-115) H 09/12/24 18:11 POC Glucose 185 mg/dL (70-110) H 09/13/24 06:14 Calculated Osmolality 286 mOsm/kg (285-295) 09/12/24 18:11 Calcium 9.8 mg/dL (8.5-10.5) 09/12/24 18:11 Magnesium 1.9 mg/dL (1.7-2.3) 09/12/24 18:11 Imaging Echo: My impression: Echocardiogram this morning revealed LVEF 50-55%, no wall motion abnormalities. Dilated left atrium. Mild MR, TR and OK. Aortic valve without stenosis or regurgitation. IVC dilated. Recent Clincial Data Last Vital Signs Temp 98.4 F 09/13/24 07:20 Pulse 90 09/13/24 07:20 Resp 19 H 09/13/24 07:20 BP 140/79 09/13/24 07:20 Pulse Ox 97 09/13/24 07:20 O2 Del Method Nasal Cannula 09/13/24 07:20 Vital Signs Temp Pulse Resp BP Pulse Ox O2 Del Method 09/13/24 07:20 98.4 F 90 19 H 140/79 97 Nasal Cannula 09/13/24 04:00 77 24 H 134/71 95 Nasal Cannula 09/13/24 00:00 97.7 F 91 15 123/81 99 Nasal Cannula Intake & Output/Weight 09/11/24 09/12/24 09/13/24 09/14/24 06:59 06:59 06:59 06:59 Intake Total 240 / 240 Output Total 1250 / 1250 Balance -1010 / -1010 Weight 173 lb 14.4 oz Vitals Last Vital Signs Temp 98.4 F 09/13/24 07:20 Pulse 90 09/13/24 07:20 Resp 19 H 09/13/24 07:20 BP 140/79 09/13/24 07:20 Pulse Ox 97 09/13/24 07:20 O2 Del Method Nasal Cannula 09/13/24 07:20 TS Medications Medications Hydrocodone Bitart/Acetaminophen (Hydrocodone-Acetaminophen 7.5-325 Mg Tablet) 1 - 2 tab PO Q6H PRN PRN Reason: MODERATE TO SEVERE PAIN Last Admin: 09/13/24 03:18 Dose: 1 tab Amiodarone HCl (Amiodarone 200 Mg Tablet) 200 mg PO BID JACOB Last Admin: 09/13/24 08:42 Dose: 200 mg Apixaban (Apixaban 5 Mg Tablet) 5 mg PO BID@0900,2100 [facility] Last Admin: 09/13/24 08:42 Dose: 5 mg Clopidogrel Bisulfate (Clopidogrel 75 Mg Tablet) 75 mg PO DAILY [facility] Last Admin: 09/13/24 08:42 Dose: 75 mg Furosemide (Furosemide 40 Mg Tablet) 40 mg PO BID [facility] Last Admin: 09/13/24 08:42 Dose: 40 mg Gabapentin (Gabapentin 300 Mg Capsule) 600 mg PO TID [facility] Last Admin: 09/13/24 08:42 Dose: 600 mg Isosorbide Mononitrate (Isosorbide Mononitrate Er 30 Mg Tablet) 30 mg PO BID [facility] Last Admin: 09/13/24 08:42 Dose: 30 mg Metformin HCl (Metformin Xr 500 Mg Tablet) 1,000 mg PO QAM [facility] Last Admin: 09/13/24 06:11 Dose: Not Given Potassium Chloride (Potassium Chloride Er 20 Meq Tablet) 20 meq PO DAILY [facility] Last Admin: 09/13/24 08:42 Dose: 20 meq Spironolactone (Spironolactone 25 Mg Tablet) 25 mg PO DAILY [facility] Last Admin: 09/13/24 08:42 Dose: 25 mg Allergies RON Inhibitors Allergy (Verified 09/12/24 14:20) Angioedema diltiazem [From Cardizem] Allergy (Verified 09/12/24 14:20) unknown lovastatin Allergy (Verified 09/12/24 14:20) bone and muscle pain meperidine [From Demerol] Allergy (Verified 09/12/24 14:20) itching methadone Allergy (Verified 09/12/24 14:20) unknown pentazocine [From Talwin] Allergy (Verified 09/12/24 14:20) nausea, vomiting metoprolol Adverse Reaction (Severe, Verified 09/12/24 14:20) bradycardia alendronate sodium [From Fosamax] Adverse Reaction (Intermediate, Verified 09/12/24 14:20) swelling codeine Adverse Reaction (Intermediate, Verified 09/12/24 14:20) headache erythromycin base Adverse Reaction (Intermediate, Verified 09/12/24 14:20) Unknown losartan Adverse Reaction (Intermediate, Verified 09/12/24 14:20) dizzy methotrexate Adverse Reaction (Intermediate, Verified 09/12/24 14:20) nausea/ diarrhea pravastatin [From Pravachol] Adverse Reaction (Intermediate, Verified 09/12/24 14:20) cramps Home Medications hydrocodone 7.5 mg-acetaminophen 325 mg tablet 1 - 2 tab PO Q6H PRN Pain 09/04/19 [History Confirmed 09/13/24] nitroglycerin 0.4 mg sublingual tablet 0.4 mg sublingual Q5M PRN Chest Pain #25 tabs 10/07/23 [Rx Confirmed 09/13/24] isosorbide mononitrate 30 mg tablet,extended release 24 hr 30 mg PO BID #180 tabs 12/28/23 [Rx Confirmed 09/13/24] clopidogrel 75 mg tablet 75 mg PO DAILY #90 tabs 01/05/24 [Rx Confirmed 09/13/24] blood sugar diagnostic ([employer] Verio test strips) #100 ea 02/23/24 [Rx Confirmed 09/13/24] gabapentin 600 mg tablet 600 mg PO TID #90 tabs 02/23/24 [Rx Confirmed 09/13/24] metformin 500 mg tablet,extended release 24 hr 1,000 mg (2 x 500 mg) PO QAM #180 tabs 02/23/24 [Rx Confirmed 09/13/24] auto titrating c-pap 6-14 #1 ea 04/11/24 [Rx Confirmed 09/13/24] apixaban 2.5 mg tablet (Eliquis) 2.5 mg PO BID #60 tabs 06/13/24 [Rx Confirmed 09/13/24] furosemide 40 mg tablet 40 mg PO BID #60 tabs 08/09/24 [Rx Confirmed 09/13/24] prednisone 20 mg tablet See Rx Instructions PO .COMPLEX PRN joint pain flare #30 tabs 08/15/24 [Rx Confirmed 09/13/24] potassium chloride 20 mEq tablet,extended release(part/cryst) 20 meq PO DAILY 09/02/24 [History Confirmed 09/13/24] spironolactone 25 mg tablet 25 mg PO DAILY 09/02/24 [History Confirmed 09/13/24] amiodarone 200 mg tablet (Pacerone) 200 mg PO BID #60 tabs 09/04/24 [Rx Confirmed 09/13/24] amlodipine 10 mg tablet 10 mg PO DAILY 09/13/24 [History Confirmed 09/13/24] Discharge Plan Discharge Patient Disposition: Xfer Other Condition: Stable Prescriptions: No Action hydrocodone-acetaminophen 7.5-325 mg tablet 1 - 2 tab PO Q6H PRN (Reason: Pain) isosorbide mononitrate 30 mg tablet extended release 24 hr 30 mg PO BID Qty: 180 3RF gabapentin 600 mg tablet 600 mg PO TID Qty: 90 11RF metformin 500 mg tablet extended release 24 hr 1,000 mg PO QAM Qty: 180 3RF Hold Instructions: Resume on 10/13/23. (DME) [employer] Verio test strips Strip See Rx Instructions .Route Qty: 100 3RF Rx Instructions: As directed, daily (DME) auto titrating c-pap 6-14 See Rx Instructions .Route .MEDSUPPLY Qty: 1 0RF Rx Instructions: mask and supplies as needed prednisone 20 mg tablet See Rx Instructions PO .COMPLEX PRN (Reason: joint pain flare) Qty: 30 1RF Rx Instructions: Take 1 tablet by mouth daily for 3 to 7 days as needed for joint pain flare. furosemide 40 mg tablet 40 mg PO BID Qty: 60 11RF Hold Instructions: Resume on 10/13/23. clopidogrel 75 mg tablet 75 mg PO DAILY Qty: 90 3RF Eliquis 2.5 mg tablet 2.5 mg PO BID Qty: 60 11RF amlodipine 10 mg tablet 10 mg PO DAILY nitroglycerin 0.4 mg Tablet, Sublingual 0.4 mg sublingual Q5M PRN (Reason: Chest Pain) Qty: 25 0RF spironolactone 25 mg tablet 25 mg PO DAILY potassium chloride 20 mEq tablet,ER particles/crystals 20 meq PO DAILY amiodarone [Pacerone] 200 mg Tablet 200 mg PO BID Qty: 60 0RF Discharge Orders: Discharge Order (Routine); Ordered 09/13/24 Ordered By: Naa Cobb Patient Instructions: Opioid Safety Transfer Attestations Time Spent in Transfer Care: greater than 30 min Quality Metrics Clinical Quality Measures [ No reported AMI, CVA or VTE this stay] Coding Level of Care Code Acute Code for [facility] Fwd Diagnoses Coronary artery disease involving [place] coronary artery of [place] heart without angina pectoris I25.10 Associated angina: without angina Coronary Disease-Associated Artery/Lesion type: [place] artery [place] vs. transplanted heart: [place] heart Acute combined systolic and diastolic congestive heart failure I50.41 Heart failure chronicity: acute Heart failure type: combined systolic and diastolic Tachy-maryann syndrome I49.5 Paroxysmal atrial fibrillation with RVR I48.0
[2024-09-13 10:56] VITALS: BP 117/83; PULSE 125; RESP 18; TEMP 36.6; O2SAT 98
[2024-09-13 11:32] LABS: Glucose Point of Care 196 mg/dL (70-110)
[2024-09-13 16:00] VITALS: BP 118/88; PULSE 91; RESP 18; TEMP 36.6; O2SAT 97
--- NOTE | 2024-09-13 16:43 | PC.NURSE ---
Patient transferred to [facility]. Report called to Flower Magana RN. Patient taken by [facility]. patient able to walk without difficulty to stretcher. Patient afib currently with rate 90s to 120s. No distress observedd.
[2024-09-13 16:46] VITALS: BP 118/88; PULSE 115; RESP 20; O2SAT 95
[2024-09-13 17:08] LABS: Glucose Point of Care 148 mg/dL (70-110)
== END 2024-09-13 16:48 | disposition short-term general hospital (02) | DRG 308 ==
PROVIDERS: Nurse Practitioner Family; Admitting Provider Internal Medicine; PCP Family Medicine; Visit Provider Internal Medicine
DX: I48.0 Paroxysmal atrial fibrillation (principal); I50.43 Acute on chronic combined systolic (congestive) and diastolic (congestive) heart failure; I25.10 Atherosclerotic heart disease of native coronary artery without angina pectoris; I49.5 Sick sinus syndrome; G47.33 Obstructive sleep apnea (adult) (pediatric); Z79.01 Long term (current) use of anticoagulants; Z79.84 Long term (current) use of oral hypoglycemic drugs; Z79.02 Long term (current) use of antithrombotics/antiplatelets
CPT/HCPCS: 12345; 36415; 36416; 80048; 82962; 83735; 85025; 93005; 93306; 99213

== ENCOUNTER → 2024-11-28 12:01 | Outpatient (BNVA) | payer MEDICARE, SELFPAY | PROVIDERS: PCP Family Medicine; Visit Provider Family Medicine | DX: I50.32 Chronic diastolic (congestive) heart failure (principal); I25.10 Atherosclerotic heart disease of native coronary artery without angina pectoris | CPT/HCPCS: 80048; 83880 ==

== ENCOUNTER 2024-12-15 12:00 | Inpatient (IN) | payer MEDICARE, SELFPAY ==
[2024-12-15] VITALS (17 sets, daily range): BP systolic 123–145; BP diastolic 62–84; PULSE 60–73; RESP 13–25; TEMP 36.6–36.8; O2SAT 84–97; BMI 32.3
--- NOTE | 2024-12-15 12:54 | XRR_ITS ---
PROCEDURE INFORMATION: Exam: XR Chest Exam date and time: 12/15/2024 1:03 PM Age: 79 years old Clinical indication: Shortness of breath; Prior surgery; Surgery date: 6+ months; PT here via EMS with C/O SOB and afib. EMS states PT zeeshan was dc on 12/10 by pcp and was given a script for new medication, PT is unsure of the name at this time. EMS reports a HX of pacemaker. PT has 20 g L wrist via EMS. PT was given 4 L nc en route. EMS reports an oxygen saturation was 84% with ambulation. TECHNIQUE: Imaging protocol: Radiologic exam of the chest. Views: 1 view. COMPARISON: CR XR chest 1V portable [id number] 09/02/2024 3:23 AM FINDINGS: Tubes, catheters and devices: A normally positioned intact dual lead cardiac pacemaker is now seen. Lungs: Probable focal linear atelectasis in the right lower lung field. Patchy opacities in the left base/retrocardiac area are unchanged and may be chronic or reflect summation shadows. Pleural spaces: Unremarkable. No pleural effusion. No pneumothorax. Heart/Mediastinum: Unremarkable. No cardiomegaly. Diaphragm: There is stable elevation/eventration of the right hemidiaphragm. Bones/joints: Unremarkable. XR/XR chest 1V portable [id number] IMPRESSION: 1. A normally positioned intact dual lead cardiac pacemaker is now seen. 2. Probable focal linear atelectasis in the right lower lung field. Patchy opacities in the left base/retrocardiac area are unchanged and may be chronic or reflect summation shadows.
--- NOTE | 2024-12-15 12:55 | ED_ITS ---
HPI - SOB/Dyspnea 2 General: Chief Complaint: Shortness of Breath/Dyspnea Stated Complaint: sob Time Seen by Provider: 12/15/24 12:13 Source: patient and EMS (Left report with nurses.) Mode of arrival: EMS Limitations: no limitations History of Present Illness: HPI Narrative: Patient reports for a few weeks she has had issues with swelling. States her primary care weekly. Recently he has been trying to change her Lasix and switched her to metolazone. Patient once the swelling is just gotten worse. She is swelling all the way up her legs now feels like she has some swelling in her abdomen and is having shortness of breath. Today she too weak to get out of bed. When I walked in the room she was asleep still holding her insurance info in her left hand. Patient reports he was hypoxic in the 80s at home. Does not use home oxygen. Patient was also had some issues with weakness and twitching says that she cannot hold onto things. Related Data Home Medications ?Medication ?Instructions ?Recorded ?Confirmed hydrocodone 7.5 mg-acetaminophen 1 - 2 tab PO Q6H PRN Pain 09/04/19 12/15/24 325 mg tablet amlodipine 10 mg tablet 10 mg PO DAILY 09/13/2412/04 Previous Rx's ?Medication ?Instructions ?Recorded nitroglycerin 0.4 mg sublingual 0.4 mg sublingual Q5M PRN Chest 10/07/23 tablet Pain #25 tabs isosorbide mononitrate 30 mg 30 mg PO BID #180 tabs tablet,extended release 24 hr clopidogrel 75 mg tablet 75 mg PO DAILY #90 tabs 05/0 10/29 gabapentin 600 mg tablet 600 mg PO TID #90 tabs 02/22 metformin 500 mg tablet,extended 1,000 mg (2 x 500 mg) PO QAM #180 02/23/24 release 24 hr tabs prednisone 20 mg tablet See Rx Instructions PO .COMP PAUL 08/15/24 PRN joint pain flare #30 tabs apixaban 5 mg tablet 5 mg PO BID #60 tabs 5 amiodarone 200 mg tablet (Pacerone) 200 mg PO BID #60 tabs 10/09/24 metolazone 5 mg tablet 5 mg PO DAILY #30 tabs 12/06 spironolactone 50 mg tablet 50 mg PO DAILY #30 tabs Allergies Allergy/AdvReac Type Severity Reaction Status Date / Time RON Inhibitors Allergy Angioedema Verified 12/15/24 12:11 diltiazem (From Cardizem) Allergy unknown Verified 12/15/24 12:11 lovastatin Allergy bone and Verified 12/15/24 12:11 muscle pain meperidine (From Demerol) Allergy itching Verified 12/15/24 12:11 methadone Allergy unknown Verified 12/15/24 12:11 pentazocine (From Talwin) Allergy nausea, Verified 12/15/24 12:11 vomiting metoprolol AdvReac Severe bradycardia Verified 12/15/24 12:11 alendronate sodium (From AdvReac Intermediate swelling Verified 12/15/24 12:11 Fosamax) codeine AdvReac Intermediate headache Verified 12/15/24 12:11 erythromycin base AdvReac Intermediate Unknown Verified 12/15/24 12:11 losartan AdvReac Intermediate dizzy Verified 12/15/24 12:11 methotrexate AdvReac Intermediate nausea/ Verified 12/15/24 12:11 diarrhea pravastatin (From Pravachol) AdvReac Intermediate cramps Verified 12/15/24 12:11 Review of Systems 2 General: Reports: 10 or more systems reviewed and unremarkable except in HPI and below PFSH ED 2 PFSH: Medical History Paroxysmal atrial fibrillation with RVR Obstructive sleep apnea Diabetes mellitus type 2, controlled Diverticulosis Mesenteric ischemia Hepatomegaly Sleep related hypoxia Coronary artery disease Latent tuberculosis Completed treatment in 2020 [facility] Immunization counseling Latent tuberculosis by blood test Tenosynovitis of ankle Psoriatic arthritis High risk medication use Peroneal tendinitis of both lower legs Osteoarthritis Rotator cuff arthropathy of right shoulder Psoriasis Surgical History History of eye surgery Removal of scar tissue History of tonsillectomy History of appendectomy History of tubal ligation History of cholecystectomy H/O: hysterectomy Family History Mother Diabetes Hypertension Heart disease Brother Hypertension Sister Hypertension Grandmother Stroke Other Cancer Social History Smoking and tobacco/nicotine status: unknown if used tobacco/nicotine Alcohol intake: never Substance/Drug Use: never Physical Exam 2 Const: COMMON NORMALS: patient oriented x3, healthy appearing, alert and well nourished GENERAL APPEARANCE: well kempt and well developed NUTRITIONAL APPEARANCE: obese HENMT: COMMON NORMALS: normocephalic, atraumatic, external ears normal and moist oral mucous membranes HEAD & SCALP: normocephalic and atraumatic E XTERNAL EAR: Yes external ears normal Eye: COMMON NORMALS: Equal, round and reactive pupils present, EOMs intact bilaterally and conjunctivae normal CONJUNCTIVA: Yes conjunctivae normal P UPIL: Yes Equal, round and reactive pupils present Neck/C-Spine: COMMON NORMALS: full ROM, no lymphadenopathy and supple Chest: CHEST: Yes Symmetrical chest wall rise and No Surgical scars present (Chest) Resp: COMMON NORMALS: normal respiratory effort, No retractions, No use of accessory muscles and clear to auscultation bilaterally AUSCULTATION: clear to auscultation bilaterally Cardio: COMMON NORMALS: regular rate, regular rhythm, S1 normal heart sound present, S2 normal heart sound present, No gallops present (Cardio), No clicks present (Cardio), No murmurs present (Cardio) and No rub (Cardio) RATE: r egular rate RHYTHM: regular rhythm HEART SOUNDS: S1 normal heart sound present, S2 normal heart sound present and Murmur heart sound present systolic PERIPHERAL PULSES: other (Radial pulses 2+ and symmetric) GI: COMMON NORMALS: Soft to palpation, non-tender and no masses INSPECTION: No abdominal distension PALPATION: Yes Soft to palpation, No Guarding due to palpation present (GI) and No Rebound tenderness present : COMMON NORMALS: Yes no CVA tenderness BLADDER/KIDNEY EXAM: Yes no CVA tenderness Back/Pelvis: COMMON NORMALS: no CVA tenderness Extremity: COMMON NORMALS: normal to inspection, full ROM and capillary refill normal OTHER: Bilateral 2+ edema to the hip Neuro: COMMON NORMALS: patient oriented x3 SENSORIUM/ORIENTATION: Yes alert Psych: APPEARANCE: Yes well kempt Skin: COMMON NORMALS: no rashes or lesions noted, no wounds, turgor normal and no jaundice GENERAL SKIN EXAM: no rashes or lesions noted and turgor normal Course 2 Vital Signs: Vital signs: Vital Signs Temperature 98.3 F 04/12/25 12:01 Pulse Rate 60 12/15/24 15:30 Respiratory Rate 15 12/15/24 15:30 Blood Pressure 130/64 12/15/24 15:30 Pulse Oximetry 91 12/15/24 15:30 Oxygen Delivery Me thod Room Air 12/15/24 12:01 MDM - SOB/Dyspnea Medical Decision Making 79-year-old female without chronic hypoxic respite failure. Comes in requiring oxygen. Sats in the 80s. Having some twitching and falling asleep. Concern for hypercapnia. Awaiting ABG at this time. However due to the volume overload she was having some pulmonary edema which is causing her to be hypoxic. She will be admitted for hypoxia free failure acute CHF exacerbation. Spoke with Dr. Jaramillo who agrees with admission under observation status. Differential Diagnosis Likely acute exacerbation of chronic obstructive airways disease, community acquired pneumonia, asthma with exacerbation and pulmonary embolism Medical Records I reviewed the patient's medical records. Lab Data I reviewed the patient's lab results. 12/15/24 11:35 12/15/24 11:35 Labs/Radiology: Radiology Impressions Chest X-Ray 12/15/24 12:54 IMPRESSION: 1. A normally positioned intact dual lead cardiac pacemaker is now seen. 2. Probable focal linear atelectasis in the right lower lung field. Patchy opacities in the left base/retrocardiac area are unchanged and may be chronic or reflect summation shadows. Laboratory Results WBC 9.31 10^3/uL (3.29-11.43) 12/15/24 11:35 RBC 4.01 10^6/uL (3.85-5.65) 12/15/24 11:35 Hgb 11.30 g/dL (11.27-16.99) 12/15/24 11:35 Hct 34.6 % (36-47) L 12/15/24 11:35 MCV 86.3 fl (85-98) 12/15/24 11:35 MCH 28.2 pg (27-33) 12/15/24 11:35 MCHC 32.7 g/dL (30-55) 12/15/24 11:35 RDW 13.5 % (12.1-15.1) 12/15/24 11:35 Plt Count 486 10^3/cmm (157-399) H 12/15/24 11:35 MPV 10.4 fL (7.4-10.4) 12/15/24 11:35 Neut % (Auto) 86.1 % 12/15/24 11:35 Lymph % (Auto) 5.9 % 12/15/24 11:35 [place] % (Auto) 5.5 % 12/15/24 11:35 Eos % (Auto) 1.6 % 12/15/24 11:35 Baso % (Auto) 0.5 % 12/15/24 11:35 Neut # (Auto) 8.01 10^3/uL (1.8-7.7) H 12/15/24 11:35 Lymph # (Auto) 0.6 10^3/uL (0.8-4.8) L 12/15/24 11:35 [place] # (Auto) 0.5 10^3/uL (0.2-0.9) 12/15/24 11:35 Eos # (Auto) 0.2 10^3/uL (0.0-0.8) 12/15/24 11:35 Baso # (Auto) 0.1 10^3/uL (0.0-0.1) 12/15/24 11:35 Nucleated RBC % (auto) 0 % 12/15/24 11:35 Nucleated RBCs # 0.0 /100WBC 12/15/24 11:35 PT 25.80 SECONDS (12.1-14.9) H 12/15/24 11:35 INR 2.21 (0.8-1.2) H 12/15/24 11:35 Specimen Type Arterial 12/15/24 15:16 Sample Site Radial, right 12/15/24 15:16 ABG pH 7.44 (7.35-7.45) 12/15/24 15:16 ABG pCO2 46.7 mmHg (35-45) H 12/15/24 15:16 ABG pO2 65.9 mmHg (80.0-100.0) L 12/15/24 15:16 ABG PO2/FiO2 Ratio 183 12/15/24 15:16 ABG HCO3 31.8 mmol/L (22-26) H 12/15/24 15:16 ABG Base Excess 6.7 mmol/L (-2.0-2.0) H 12/15/24 15:16 Ramesh Test Pos 12/15/24 15:16 Hematocrit 34.0 % (37-47) L 12/15/24 15:16 O2 Delivery Device Nc 12/15/24 15:16 O2 Liters/Min 4.0 % 12/15/24 15:16 FiO2 36.0 % 12/15/24 15:16 Physical Plant Employee ID [id number] 12/15/24 15:16 Sodium 133 mmol/L (136-145) L 12/15/24 11:35 Potassium 3.6 mmol/L (3.5-5.1) 12/15/24 11:35 Chloride 89 mmol/L (98-107) L 12/15/24 11:35 Carbon Dioxide 28 mmol/L (22-29) 12/15/24 11:35 Anion Gap 19.6 (5-19) H 12/15/24 11:35 BUN 44 mg/dL (8-23) H 12/15/24 11:35 Creatinine 1.7 mg/dL (0.5-0.9) H 12/15/24 11:35 GFR Calculation Not Reportable 12/15/24 11:35 Glucose 182 mg/dL (65-115) H 12/15/24 11:35 Calculated Osmolality 292 mOsm/kg (285-295) 12/15/24 11:35 Calcium 9.6 mg/dL (8.5-10.5) 12/15/24 11:35 Magnesium 2.5 mg/dL (1.7-2.3) H 12/15/24 11:35 Total Bilirubin 0.8 mg/dL (0.15-1.2) 12/15/24 11:35 AST 20 U/L (0-32) 12/15/24 11:35 ALT 11 U/L (0-33) 12/15/24 11:35 Alkaline Phosphatase 66 U/L (35-105) 12/15/24 11:35 NT-Pro-B Natriuret Pep 4333 pg/mL (0-450) H 12/15/24 11:35 Total Protein 7.7 g/dL (6.6-8.7) 12/15/24 11:35 Albumin 4.5 g/dL (3.5-5.2) 12/15/24 11:35 Globulin 3.2 g/dL (1.3-4.6) 12/15/24 11:35 Influenza A (PCR) Negative (Negative) 12/15/24 13:15 Influenza Type B (PCR) Negative (Negative) 12/15/24 13:15 RSV (PCR) Negative (Negative) 12/15/24 13:15 SARS-CoV-2 (PCR) Negative (Negative) 12/15/24 13:15 All radiology interpretation(s) finalized by discharge Discharge Plan Discharge Patient Disposition: Placed in Observation Clinical Impression: Acute hypoxemic respiratory failure, Hypoxic encephalopathy, Volume overload, Acute CHF, Bilateral edema of lower extremity Condition: Stable Prescriptions: No Action hydrocodone-acetaminophen 7.5-325 mg tablet 1 - 2 tab PO Q6H PRN (Reason: Pain) isosorbide mononitrate 30 mg tablet extended release 24 hr 30 mg PO BID Qty: 180 3RF amiodarone [Pacerone] 200 mg tablet 200 mg PO BID Qty: 60 11RF gabapentin 600 mg tablet 600 mg PO TID Qty: 90 11RF metformin 500 mg tablet extended release 24 hr 1,000 mg PO QAM Qty: 180 3RF prednisone 20 mg tablet See Rx Instructions PO .COMPLEX PRN (Reason: joint pain flare) Qty: 30 1RF Rx Instructions: Take 1 tablet by mouth daily for 3 to 7 days as needed for joint pain flare. spironolactone 50 mg tablet 50 mg PO DAILY Qty: 30 11RF metolazone 5 mg tablet 5 mg PO DAILY Qty: 30 11RF clopidogrel 75 mg tablet 75 mg PO DAILY Qty: 90 3RF apixaban 5 mg tablet 5 mg PO BID Qty: 60 11RF amlodipine 10 mg tablet 10 mg PO DAILY nitroglycerin 0.4 mg Tablet, Sublingual 0.4 mg sublingual Q5M PRN (Reason: Chest Pain) Qty: 25 0RF Referrals: Devon Walton MD [Primary Care Provider] - Print Language: Slovenian Coding Level of Care Code ED Automatic Edger for Jan Tran
[2024-12-15 12:59] LABS: Basophils # 0.1 10^3/uL (0.0-0.1); Basophils % 0.5 %; Eosinophils # 0.2 10^3/uL (0.0-0.8); Eosinophils % 1.6 %; Hematocrit 34.6 % (36-47); Lymphocytes # 0.6 10^3/uL (0.8-4.8); Lymphocytes % 5.9 %; Mean Corpuscular HGB Conc 32.7 g/dL (30-55); Mean Corpuscular Hemoglobin 28.2 pg (27-33); Mean Corpuscular Volume 86.3 fl (85-98); Mean Platelet Volume 10.4 fL (7.4-10.4); Monocytes # 0.5 10^3/uL (0.2-0.9); Monocytes % 5.5 %; Neutrophils # 8.01 10^3/uL (1.8-7.7); Neutrophils % 86.1 %; Nucleated Red Blood Cells % 0 %; Platelet Count 486 10^3/cmm (157-399); Red Blood Count 4.01 10^6/uL (3.85-5.65); Red Cell Distribution Width 13.5 % (12.1-15.1); White Blood Count 9.31 10^3/uL (3.29-11.43)
[2024-12-15 13:04] LABS: INR 2.21 (0.8-1.2)
[2024-12-15] MEDS: ondansetron 2 mg/ML SDV 2 mL 4 MG IVP (13:09)
[2024-12-15] MEDS: FUROsemide 10 mg/mL SDV 10mL 60 MG IVP (13:11)
[2024-12-15 13:35] LABS: Alanine Aminotransferase 11 U/L (0-33); Albumin Level 4.5 g/dL (3.5-5.2); Alkaline Phosphatase 66 U/L (35-105); Blood Urea Nitrogen 44 mg/dL (8-23); Calcium 9.6 mg/dL (8.5-10.5); Carbon Dioxide 28 mmol/L (22-29); Chloride 89 mmol/L (98-107); Creatinine Clr Calc Pharmacy 26.7695; Globulin 3.2 g/dL (1.3-4.6); Glucose 182 mg/dL (65-115); Magnesium 2.5 mg/dL (1.7-2.3); NT Pro B Type Natriuretic Pept 4333 pg/mL (0-450); Osmolality Calculated 292 mOsm/kg (285-295); Sodium 133 mmol/L (136-145); Total Bilirubin 0.8 mg/dL (0.15-1.2); Total Protein 7.7 g/dL (6.6-8.7)
[2024-12-15 13:43] LABS: Anion Gap 19.6 (5-19); Aspartate Amino Transferase 20 U/L (0-32); Potassium 3.6 mmol/L (3.5-5.1)
[2024-12-15 13:57] LABS: Influenza A NEGATIVE (Negative); Influenza B NEGATIVE (Negative); Respiratory Syncytial Virus Ce NEGATIVE (Negative); SARS-CoV-2 PCR NEGATIVE (Negative)
[2024-12-15 15:29] LABS: ABG PCO2 46.7 mmHg (35-45); ABG PH Result 7.44 (7.35-7.45); Base Excess ABG 6.7 mmol/L (-2.0-2.0); Blood Gas Allen Test Pos; Blood Gas Operator Identificat ylc; Blood Gas Sample Site Radial, right; Blood Gas Sample Type Arterial; HCO3 ABG 31.8 mmol/L (22-26); Oxygen Device NC; PO2 ABG 65.9 mmHg (80.0-100.0); PO2 FiO2 Ratio Arterial Blood 183
--- NOTE | 2024-12-15 16:10 | PM.HP ---
Providers/Chief Complaint Primary Care Provider: Devon Walton MD Chief Complaint: sob History of Present Illness Chela Rodriguez is a 79 year old female with a past medical history significant for paroxysmal atrial fibrillation, obstructive sleep apnea, type 2 diabetes mellitus, hepatomegaly, coronary artery disease, heart failure with preserved ejection fraction, and multiple other comorbidities who presents emergency department with shortness of breath. Patient reports symptoms for the past 2 weeks with progressive worsening. She endorses associated symptoms of lower extremity swelling that has progressively worsened reaching her abdomen. She states that her shoes no longer fit. She states that she cannot bend her knees due to the edema in her legs. She endorses occasional nonproductive cough. Denies fevers, chills, nausea or emesis. Exertion worsens symptoms. Rest improves. She states her physician has been titrating her diuretics. She states about 3 days ago she was taken off Lasix and started on metolazone. She also notes recent changes into her Aldactone dosing. Of note, she also reports a development of clumsiness in her upper extremities. She states that some movements of become jerky and she is dropped her cup multiple times. Denies other focal neurological complaints. ABG negative for CO2 retention. In the emergency department, patient was found to be fluid overloaded. She was found to be hypoxic requiring supplemental oxygen support. Patient denies prior needs for oxygen. Review of Systems Narrative: A complete review of systems was obtained and is negative except as stated in HPI. Medications/Allergies Home Medications ?Medication ?Instructions ?Recorded ?Confirmed ?Last Taken ?Type hydrocodone 7.5 mg-acetaminophen 1 - 2 tab PO Q6H PRN Pain 09/04/19 12/15/24 12/15/24 History 325 mg tablet nitroglycerin 0.4 mg sublingual 0.4 mg sublingual Q5M PRN Chest 10/07/23 12/15/24 09/02/24 Rx tablet Pain #25 tabs isosorbide mononitrate 30 mg 30 mg PO BID #180 tabs 12/28/23 12/15/24 12/15/24 Rx tablet,extended release 24 hr clopidogrel 75 mg tablet 75 mg PO DAILY #90 tabs 01/05/24 12/15/24 12/15/24 Rx gabapentin 600 mg tablet 600 mg PO TID #90 tabs 02/23/24 12/15/24 12/15/24 Rx metformin 500 mg tablet,extended 1,000 mg (2 x 500 mg) PO QAM #180 02/23/24 12/15/24 12/15/24 Rx release 24 hr tabs prednisone 20 mg tablet See Rx Instructions PO .COMPLEX 08/15/24 12/15/24 Unknown Rx PRN joint pain flare #30 tabs amlodipine 10 mg tablet 10 mg PO DAILY 09/13/24 12/15/24 12/15/24 History apixaban 5 mg tablet 5 mg PO BID #60 tabs 09/18/24 12/15/24 12/15/24 Rx amiodarone 200 mg tablet (Pacerone) 200 mg PO BID #60 tabs 10/09/24 12/15/24 Unknown Rx metolazone 5 mg tablet 5 mg PO DAILY #30 tabs 12/06/24 12/15/24 12/15/24 Rx spironolactone 50 mg tablet 50 mg PO DAILY #30 tabs 12/11/24 12/15/24 Unknown Rx Allergies Allergy/AdvReac Type Severity Reaction Status Date / Time RON Inhibitors Allergy Angioedema Verified 12/15/24 12:11 diltiazem (From Cardizem) Allergy unknown Verified 12/15/24 12:11 lovastatin Allergy bone and Verified 12/15/24 12:11 muscle pain meperidine (From Demerol) Allergy itching Verified 12/15/24 12:11 methadone Allergy unknown Verified 12/15/24 12:11 pentazocine (From Talwin) Allergy nausea, Verified 12/15/24 12:11 vomiting metoprolol AdvReac Severe bradycardia Verified 12/15/24 12:11 alendronate sodium (From AdvReac Intermediate swelling Verified 12/15/24 12:11 Fosamax) codeine AdvReac Intermediate headache Verified 12/15/24 12:11 erythromycin base AdvReac Intermediate Unknown Verified 12/15/24 12:11 losartan AdvReac Intermediate dizzy Verified 12/15/24 12:11 methotrexate AdvReac Intermediate nausea/ Verified 12/15/24 12:11 diarrhea pravastatin (From Pravachol) AdvReac Intermediate cramps Verified 12/15/24 12:11 PFSH Acute PFSH: Medical History Paroxysmal atrial fibrillation with RVR Obstructive sleep apnea Diabetes mellitus type 2, controlled Diverticulosis Mesenteric ischemia Hepatomegaly Sleep related hypoxia Coronary artery disease Latent tuberculosis Completed treatment in 2020 [facility] Immunization counseling Latent tuberculosis by blood test Tenosynovitis of ankle Psoriatic arthritis High risk medication use Peroneal tendinitis of both lower legs Osteoarthritis Rotator cuff arthropathy of right shoulder Psoriasis Surgical History History of eye surgery Removal of scar tissue History of tonsillectomy History of appendectomy History of tubal ligation History of cholecystectomy H/O: hysterectomy Family History Mother Diabetes Hypertension Heart disease Brother Hypertension Sister Hypertension Grandmother Stroke Other Cancer Social History Smoking and tobacco/nicotine status: unknown if used tobacco/nicotine Alcohol intake: never Substance/Drug Use: never Vitals/I&O/Wt Last Vital Signs Temp 98.3 F 12/15/24 12:01 Pulse 60 12/15/24 15:30 Resp 15 12/15/24 15:30 BP 130/64 12/15/24 15:30 Pulse Ox 91 12/15/24 15:30 O2 Del Method Room Air 12/15/24 12:01 Weight last 48 hrs Weight 80.286 kg Physical Exam Narrative: General: Patient is awake and alert. Appears fatigued but pleasant. Head: Normocephalic. Atraumatic. EOM intact. Neck: Elevated JVD. Cardiovascular: RRR. No gallops. No murmurs. Bilateral lower extremity edema. There is plus pitting edema as well as possibly nonpitting edema extending from feet to thigh. Lungs: Breath sounds diminished. Dependent crackles. On 4 L nasal cannula support. Conversational dyspnea. No wheezing. Skin: No jaundice. No rashes. Abdomen: Normal bowel sounds, abdomen soft and nontender. Extremities: No cyanosis or clubbing. Musculoskeletal: No erythematous joints. Neurological: Moves all 4 extremities. No myoclonus. Data 12/15/24 11:35 12/15/24 11:35 A&P Assessment and plan (1) Congestive heart failure: Qualifiers: Heart failure type: combined systolic and diastolic Heart failure chronicity: acute Qualified Code(s): I50.41 - Acute combined systolic (congestive) and diastolic (congestive) heart failure (2) Coronary artery disease: Qualifiers: Coronary Disease-Associated Artery/Lesion type: [place] artery [place] vs. transplanted heart: [place] heart Associated angina: without angina Qualified Code(s): I25.10 - Atherosclerotic heart disease of [place] coronary artery without angina pectoris (3) Paroxysmal atrial fibrillation with RVR: (4) Diabetes type 2, uncontrolled: (5) KIMANI (acute kidney injury): (6) Hypoxic encephalopathy: Plan Acute on chronic heart failure with preserved ejection fraction exacerbation - Continuous telemetry monitoring - Strict I's and O's, will use Green catheter - Daily weights - Hold oral diuretics - Start IV Lasix - Discontinue home calcium channel lopez - Reduce gabapentin dosing as it is associated with development of edema - Hold metolazone for now - Monitor renal function Acute kidney injury - Suspect cardiorenal physiology - Starting diuresis - Management as above - Renally dose medications as needed Acute hypoxic respiratory insufficiency - Provide supplemental oxygen - Start diuresis - Encourage pulmonary toilet Shakiness/jitteriness - May be related to hypoxia - No focal neurological deficits noted - Monitor progression of symptoms Paroxysmal atrial fibrillation - Continue amiodarone - Continue apixaban for stroke prophylaxis Type 2 diabetes mellitus - Hold metformin Fen sliding-scale correction Coronary artery disease - Continue Imdur - Continue Plavix DVT prophylaxis: Apixaban CODE STATUS: Full code PDMP PDMP Reviewed: Not Reviewed Attestations Medical Necessity Statement*: Patient presents with fluid overload, found to have acute on chronic heart failure preserved ejection fraction exacerbation, acute kidney injury, and acute hypoxic respiratory insufficiency with expected hospitalization not to cross 2 midnights for diuresis, serial labs and supportive care. Coding Level of Care Code Acute Code for Chg Fwd Diagnoses Acute combined systolic and diastolic congestive heart failure I50.41 Heart failure type: combined systolic and diastolic Heart failure chronicity: acute Coronary artery disease involving [place] coronary artery of [place] heart without angina pectoris I25.10 Coronary Disease-Associated Artery/Lesion type: [place] artery [place] vs. transplanted heart: [place] heart Associated angina: without angina Paroxysmal atrial fibrillation with RVR I48.0 Diabetes type 2, uncontrolled KIMANI (acute kidney injury) N17.9 Hypoxic encephalopathy G93.1
[2024-12-15] MEDS: amiodarone 200 mg Tablet PO (17:56)
[2024-12-15] MEDS: isosorbide mononitrate ER 30 mg Tablet PO (17:56)
[2024-12-15] MEDS: apixaban 5 mg Tablet PO (17:56)
[2024-12-15 18:00] LABS: Procalcitonin 0.09 ng/mL (0-0.5)
[2024-12-15 18:58] LABS: Potassium, Radom Urine 19 mmol/L; Urine Random Chloride 85 mmol/L; Urine Random Sodium 74 mmol/L
[2024-12-15] MEDS: gabapentin 400 mg Capsule PO (20:06)
[2024-12-16] VITALS (10 sets, daily range): BP systolic 120–148; BP diastolic 53–72; PULSE 59–63; RESP 15–18; TEMP 36.4–37.2; O2SAT 90–94
[2024-12-16 04:01] LABS: Basophils % 0.3 %; Eosinophils # 0.2 10^3/uL (0.0-0.8); Eosinophils % 1.9 %; Hematocrit 32.8 % (36-47); Lymphocytes # 0.5 10^3/uL (0.8-4.8); Lymphocytes % 5.5 %; Mean Corpuscular HGB Conc 32.6 g/dL (30-55); Mean Corpuscular Hemoglobin 28.5 pg (27-33); Mean Corpuscular Volume 87.2 fl (85-98); Mean Platelet Volume 10.2 fL (7.4-10.4); Monocytes # 0.8 10^3/uL (0.2-0.9); Monocytes % 8.1 %; Neutrophils # 8.27 10^3/uL (1.8-7.7); Neutrophils % 83.7 %; Nucleated Red Blood Cells % 0 %; Platelet Count 437 10^3/cmm (157-399); Red Blood Count 3.76 10^6/uL (3.85-5.65); Red Cell Distribution Width 13.4 % (12.1-15.1); White Blood Count 9.88 10^3/uL (3.29-11.43)
[2024-12-16 04:27] LABS: Alanine Aminotransferase 8 U/L (0-33); Albumin Level 4.1 g/dL (3.5-5.2); Alkaline Phosphatase 63 U/L (35-105); Anion Gap 19.1 (5-19); Aspartate Amino Transferase 14 U/L (0-32); Blood Urea Nitrogen 51 mg/dL (8-23); Calcium 9.2 mg/dL (8.5-10.5); Carbon Dioxide 27 mmol/L (22-29); Chloride 90 mmol/L (98-107); Creatinine Clr Calc Pharmacy 29.0598; Globulin 2.7 g/dL (1.3-4.6); Glucose 148 mg/dL (65-115); Magnesium 2.2 mg/dL (1.7-2.3); Osmolality Calculated 292 mOsm/kg (285-295); Phosphorus 3.9 mg/dL (2.5-4.5); Potassium 3.1 mmol/L (3.5-5.1); Sodium 133 mmol/L (136-145); Total Bilirubin 0.7 mg/dL (0.15-1.2); Total Protein 6.8 g/dL (6.6-8.7)
[2024-12-16] MEDS: potassium chloride ER 20 mEq Tablet 40 MEQ PO (05:00)
--- NOTE | 2024-12-16 05:13 | PC.NURSE ---
This nurse contacted Dr. Julian about patients potassium being low. Dr. Julian ordered one time dose of PO potassium 40MeQ.
[2024-12-16] MEDS: FUROsemide 10 mg/mL SDV 4mL 40 MG IVP ×2 (06:24→17:36)
[2024-12-16 07:47] LABS: Glucose Point of Care 162 mg/dL (70-110)
--- NOTE | 2024-12-16 08:42 | PM.PN ---
Subjective Subjective: Patient reports she did not sleep well overnight; may plan on nap today. Reports continued shortness of breath and lower extremity edema. Input not recorded but patient reports about 1L oral intake since admission. Medications: Reviewed: Yes Vitals/I&O/Wt Last Vital Signs Temp 98.3 F 12/16/24 07:31 Pulse 60 12/16/24 07:31 Resp 16 12/16/24 07:31 BP 148/72 12/16/24 07:31 Pulse Ox 93 12/16/24 07:31 O2 Del Method Nasal Cannula 12/16/24 07:31 O2 Flow Rate 4 12/16/24 07:25 12/15/24 12/16/24 12/16/24 22:59 06:59 14:59 Intake Total 240 / 240 Output Total 900 / 900 350 / 1250 Balance -900 / -900 -350 / -1250 240 / 240 Weight last 48 hrs Weight 83.659 kg Weight 80.286 kg Physical Exam Narrative: General: Patient is awake. Appears fatigued, moreso than yesterday. In bedside chair. Head: Normocephalic. Atraumatic. EOM intact. Neck: Elevated JVD. Cardiovascular: RRR. No gallops. No murmurs. Persistent bilateral lower extremity edema, not markedly changed from yesterday's exam. Lungs: Breath sounds diminished. Dependent crackles. Remains on nasal cannula support. Conversational dyspnea. No wheezing. Skin: No jaundice. No rashes. Abdomen: Normal bowel sounds, abdomen soft and nontender. Extremities: No cyanosis or clubbing. Musculoskeletal: No erythematous joints. Neurological: Moves all 4 extremities. No myoclonus. Urinary Catheter Management: Green Latex: Cath Placed During This Visit: yes Reason for Continuing Indwelling Catheter: Other Urinary Catheter Date of Insertion: 12/15/24 Urinary Catheter Time of Insertion: 17:50 Data 12/16/24 03:03 12/16/24 03:03 A&P Assessment and plan (1) Congestive heart failure: Qualifiers: Heart failure type: combined systolic and diastolic Heart failure chronicity: acute Qualified Code(s): I50.41 - Acute combined systolic (congestive) and diastolic (congestive) heart failure (2) Coronary artery disease: Qualifiers: Coronary Disease-Associated Artery/Lesion type: [place] artery [place] vs. transplanted heart: [place] heart Associated angina: without angina Qualified Code(s): I25.10 - Atherosclerotic heart disease of [place] coronary artery without angina pectoris (3) Paroxysmal atrial fibrillation with RVR: (4) Diabetes type 2, uncontrolled: (5) KIMANI (acute kidney injury): (6) Hypoxic encephalopathy: Plan Acute on chronic heart failure with preserved ejection fraction exacerbation - Continuous telemetry monitoring - Strict I's and O's via Green catheter - Daily weights - Hold oral diuretics - Continue Lasix 40 mg IV BIDAC - Discontinue amlodipine - pt confirms Dr Walton had her stop it 10 days ago for same reason - Gabapentin dosing reduced; d/w pt - Hold metolazone - Monitor renal function Acute kidney injury - Suspect cardiorenal physiology - Renal function similar to yesterday - Continue diuresis - Renally dose medications as needed - Repeat labs tomorrow Hypokalemia 2/2 loop diuresis - Replace K - Telemetry Acute hypoxic respiratory insufficiency - Provide supplemental oxygen - Volume control diuresis - Procal negative; no evidence of infection - Encourage pulmonary toilet Shakiness/jitteriness - May be related to hypoxia - No focal neurological deficits noted - Monitor progression of symptoms Paroxysmal atrial fibrillation History of tachy-maryann syndrome status post pacemaker - Follows w/ cardiology clinic - Continue amiodarone - Continue apixaban for stroke prophylaxis Type 2 diabetes mellitus - Hold metformin - Sliding-scale insulin correction Coronary artery disease - Continue Imdur - Continue Plavix DVT prophylaxis: Apixaban CODE STATUS: Full code PDMP PDMP Reviewed: Not Reviewed Attestations Medical Necessity Statement*: Pt requires ongoing hospitalization for supplemental oxygen supportive, IV diuresis, telemetry monitoring, serial labs and supportive care. Coding Level of Care Code Acute Code for Chg Fwd Diagnoses Acute combined systolic and diastolic congestive heart failure I50.41 Heart failure type: combined systolic and diastolic Heart failure chronicity: acute Coronary artery disease involving [place] coronary artery of [place] heart without angina pectoris I25.10 Coronary Disease-Associated Artery/Lesion type: [place] artery [place] vs. transplanted heart: [place] heart Associated angina: without angina Paroxysmal atrial fibrillation with RVR I48.0 Diabetes type 2, uncontrolled KIMANI (acute kidney injury) N17.9 Hypoxic encephalopathy G93.1
[2024-12-16] MEDS: apixaban 5 mg Tablet PO ×2 (09:18→17:36)
[2024-12-16] MEDS: amiodarone 200 mg Tablet PO ×2 (09:18→17:36)
[2024-12-16] MEDS: clopidogrel 75 mg Tablet PO (09:18)
[2024-12-16] MEDS: isosorbide mononitrate ER 30 mg Tablet PO ×2 (09:19→17:36)
[2024-12-16] MEDS: gabapentin 400 mg Capsule PO ×3 (09:19→20:36)
[2024-12-16] MEDS: HYDROcodone-acetaminophen 7.5-325 mg Tablet 1 TAB PO (15:09)
[2024-12-17] VITALS (9 sets, daily range): BP systolic 137–157; BP diastolic 64–91; PULSE 59–103; RESP 14–20; TEMP 36.7–37.2; O2SAT 92–98; BMI 33.6
[2024-12-17 03:13] LABS: Basophils % 0.5 %; Eosinophils # 0.2 10^3/uL (0.0-0.8); Hematocrit 31.3 % (36-47); Lymphocytes # 0.6 10^3/uL (0.8-4.8); Lymphocytes % 7.7 %; Mean Corpuscular HGB Conc 32.3 g/dL (30-55); Mean Corpuscular Hemoglobin 28.3 pg (27-33); Mean Corpuscular Volume 87.7 fl (85-98); Mean Platelet Volume 10.4 fL (7.4-10.4); Monocytes # 0.9 10^3/uL (0.2-0.9); Monocytes % 10.7 %; Neutrophils % 77.7 %; Nucleated Red Blood Cells % 0 %; Platelet Count 365 10^3/cmm (157-399); Red Blood Count 3.57 10^6/uL (3.85-5.65); Red Cell Distribution Width 13.2 % (12.1-15.1)
[2024-12-17 03:30] LABS: Anion Gap 16.8 (5-19); Blood Urea Nitrogen 49 mg/dL (8-23); Calcium 9.2 mg/dL (8.5-10.5); Carbon Dioxide 31 mmol/L (22-29); Chloride 90 mmol/L (98-107); Creatinine Clr Calc Pharmacy 33.2112; Glucose 147 mg/dL (65-115); Magnesium 2.1 mg/dL (1.7-2.3); Phosphorus 3.7 mg/dL (2.5-4.5); Sodium 135 mmol/L (136-145)
[2024-12-17 03:56] LABS: Potassium 2.8 mmol/L (3.5-5.1)
[2024-12-17] MEDS: potassium chloride ER 20 mEq Tablet 40 MEQ PO ×2 (04:51→11:00)
[2024-12-17] MEDS: FUROsemide 10 mg/mL SDV 4mL 40 MG IVP ×2 (06:09→17:26)
[2024-12-17] MEDS: lidocaine 1% 5 ML in potassium chloride premix 100 ML 52.5 ML IV (08:34)
[2024-12-17] MEDS: isosorbide mononitrate ER 30 mg Tablet PO ×2 (08:34→17:26)
[2024-12-17] MEDS: clopidogrel 75 mg Tablet PO (08:34)
[2024-12-17] MEDS: gabapentin 400 mg Capsule PO ×3 (08:34→20:24)
[2024-12-17] MEDS: apixaban 5 mg Tablet PO ×2 (08:34→17:26)
--- NOTE | 2024-12-17 09:19 | PM.PN ---
Subjective Subjective: Patient reports she got very poor sleep again last night. She is very fatigued this morning. Reports some improvement in shortness of breath and edema. She was able to clarify that her amlodipine had not actually been discontinued that it would have been her amiodarone and she was thinking of. We discussed need to correct her potassium prior to further diuresis. Potassium ordered. Discussed plan of care and patient is in agreement. Medications: Reviewed: Yes Vitals/I&O/Wt Last Vital Signs Temp 98.1 F 12/17/24 07:10 Pulse 103 H 12/17/24 08:58 Resp 18 12/17/24 08:58 BP 146/87 12/17/24 07:10 Pulse Ox 98 12/17/24 08:58 O2 Del Method Nasal Cannula 12/17/24 08:58 O2 Flow Rate 4 12/17/24 08:58 12/16/24 12/17/24 12/17/24 22:59 06:59 14:59 Intake Total 240 / 680 200 / 880 240 / 240 Output Total 2100 / 2100 Balance 240 / 680 -1900 / -1220 240 / 240 Weight last 48 hrs Weight 83.461 kg Weight 83.659 kg Weight 80.286 kg Physical Exam Narrative: General: Patient is awake. More fatigued appearing. Head: Normocephalic. Atraumatic. EOM intact. Neck: Elevated JVD. Cardiovascular: RRR. No gallops. No murmurs. Persistent bilateral lower extremity edema, slightly improved from yesterday's exam. Lungs: Breath sounds diminished. Dependent crackles. On nasal cannula support. No wheezing. Skin: No jaundice. No rashes. : Green. Abdomen: Normal bowel sounds, abdomen soft and nontender. Extremities: No cyanosis or clubbing. Musculoskeletal: No erythematous joints. Neurological: Moves all 4 extremities. No myoclonus. Urinary Catheter Management: Green Latex: Cath Placed During This Visit: yes Reason for Continuing Indwelling Catheter: Other Urinary Catheter Date of Insertion: 12/15/24 Urinary Catheter Time of Insertion: 17:50 Data 12/17/24 01:36 12/17/24 01:36 A&P Assessment and plan (1) Congestive heart failure: Qualifiers: Heart failure type: combined systolic and diastolic Heart failure chronicity: acute Qualified Code(s): I50.41 - Acute combined systolic (congestive) and diastolic (congestive) heart failure (2) Coronary artery disease: Qualifiers: Coronary Disease-Associated Artery/Lesion type: [place] artery [place] vs. transplanted heart: [place] heart Associated angina: without angina Qualified Code(s): I25.10 - Atherosclerotic heart disease of [place] coronary artery without angina pectoris (3) Paroxysmal atrial fibrillation with RVR: (4) Diabetes type 2, uncontrolled: (5) KMIANI (acute kidney injury): (6) Hypoxic encephalopathy: Plan Acute on chronic heart failure with preserved ejection fraction exacerbation - Continuous telemetry monitoring - Strict I's and O's via Green catheter - Daily weights - Continue Lasix 40 mg IV BIDAC - HOLD AM dose due to hypokalemia - Discontinue amlodipine - would discontinue at discharge as well - Gabapentin dosing reduced - Hold metolazone - Monitor renal function Acute kidney injury - Suspect cardiorenal physiology - Renal function improving with diuresis - Renally dose medications as needed - Repeat labs tomorrow Hypokalemia 2/2 loop diuresis - Replace K with oral and PO formulations - Telemetry Acute hypoxic respiratory insufficiency - Provide supplemental oxygen - Volume control diuresis Shakiness/jitteriness - May be related to hypoxia - No further complaints since admission Paroxysmal atrial fibrillation History of tachy-maryann syndrome status post pacemaker - Follows w/ cardiology clinic - Continue amiodarone - pt reports she thinks her amiodarone was recently discontinued - Continue apixaban for stroke prophylaxis Type 2 diabetes mellitus - Hold metformin - Sliding-scale insulin correction Coronary artery disease - Continue Imdur - Continue Plavix DVT prophylaxis: Apixaban CODE STATUS: Full code PDMP PDMP Reviewed: Not Reviewed Attestations Medical Necessity Statement*: Pt requires ongoing hospitalization for supplemental oxygen supportive, IV diuresis, potassium replacement, telemetry monitoring, serial labs and supportive care. Coding Level of Care Code Acute Code for Chg Fwd Diagnoses Acute combined systolic and diastolic congestive heart failure I50.41 Heart failure type: combined systolic and diastolic Heart failure chronicity: acute Coronary artery disease involving [place] coronary artery of [place] heart without angina pectoris I25.10 Coronary Disease-Associated Artery/Lesion type: [place] artery [place] vs. transplanted heart: [place] heart Associated angina: without angina Paroxysmal atrial fibrillation with RVR I48.0 Diabetes type 2, uncontrolled KIMANI (acute kidney injury) N17.9 Hypoxic encephalopathy G93.1
--- NOTE | 2024-12-17 11:01 | PC.CHAP ---
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 [] Patient/Family/Request visit [] Outpatient visit [] Follow-up visit [] Physician referral [] Code/Alert [x] Routine visit [] Staff referral [] Actively dying [x] Patient sleeping [] Family support [] [] Out of room [] Palliative care [] [] Receiving care in room [] Pre-surgical visit [] Trauma [] Long length of stay [] ICU visit [] Other: Relational/Emotional Strength [] Patient feels connected with others/family/visitors/staff [] Distress [] Loneliness/isolation [] Abandonment Spirituality of Patient [] Person of Dipika [] Attends Judaism of their Dipika [] Believes in Prayer [] Reads Bible or Yazdanism materials [] There are Spiritual issues to be addressed Nut Process Helper Interventions [x] Prayer [] Active listening [] Non-anxious presence [] Spiritual/emotional support [] Crisis/trauma care [] Spiritual counseling [] Bereavement support [] Provided bereavement packet [] Provided Bible/devotional materials [] Provided toy/stuffed animal, coloring book to patient or family member [] Provided Communion [] Anointing/[place] [] Salvation [] Completed spiritual assessment [] Other: Impact on Illness or Injury [] Angry [] Fearful [] Anxious [] Often cries [] Exhaustion [] Unable to work [] Unable to attend voodoo [] Unable to walk/stand [] Unable to read [] Unable to drive [] Unable to eat/drink [] Unable to sleep [] Unable to be with family [] Patient intubated [] Other: Summary Time spent with patient
[2024-12-18] VITALS (9 sets, daily range): BP systolic 136–164; BP diastolic 55–88; PULSE 54–89; RESP 16–19; TEMP 36.6–37.1; O2SAT 86–97; BMI 33.6
[2024-12-18 05:19] LABS: Basophils % 0.3 %; Eosinophils # 0.2 10^3/uL (0.0-0.8); Eosinophils % 1.5 %; Hematocrit 30.8 % (36-47); Lymphocytes # 0.6 10^3/uL (0.8-4.8); Lymphocytes % 6.3 %; Mean Corpuscular HGB Conc 31.8 g/dL (30-55); Mean Corpuscular Hemoglobin 27.7 pg (27-33); Mean Platelet Volume 10.3 fL (7.4-10.4); Monocytes # 0.8 10^3/uL (0.2-0.9); Neutrophils # 8.35 10^3/uL (1.8-7.7); Neutrophils % 83.3 %; Nucleated Red Blood Cells % 0 %; Platelet Count 343 10^3/cmm (157-399); Red Blood Count 3.54 10^6/uL (3.85-5.65); Red Cell Distribution Width 13.3 % (12.1-15.1); White Blood Count 10.02 10^3/uL (3.29-11.43)
[2024-12-18 05:46] LABS: Albumin Level 4.1 g/dL (3.5-5.2); Anion Gap 16.4 (5-19); Blood Urea Nitrogen 43 mg/dL (8-23); Carbon Dioxide 35 mmol/L (22-29); Chloride 92 mmol/L (98-107); Creatinine Clr Calc Pharmacy 46.4378; Glucose 159 mg/dL (65-115); Magnesium 1.9 mg/dL (1.7-2.3); NT Pro B Type Natriuretic Pept 5425 pg/mL (0-450); Phosphorus 3.5 mg/dL (2.5-4.5); Potassium 3.4 mmol/L (3.5-5.1); Sodium 140 mmol/L (136-145)
[2024-12-18] MEDS: FUROsemide 10 mg/mL SDV 4mL 40 MG IVP (06:34)
--- NOTE | 2024-12-18 08:25 | PC.CHAP ---
Pastoral Care Encounter/Spiritual Assessment Type of Contact [] Declined meat puller visit [] Patient/Family/Request visit [] Outpatient visit [] Follow-up visit [] Physician referral [] Code/Alert [x] Routine visit [] Staff referral [] Actively dying [] Patient sleeping [] Family support [] [] Out of room [] Palliative care [] [] Receiving care in room [] Pre-surgical visit [] Trauma [] Long length of stay [] ICU visit [] Other: Relational/Emotional Strength [x] Patient feels connected with others/family/visitors/staff [] Distress [] Loneliness/isolation [] Abandonment Spirituality of Patient [x] Person of Dipika [] Attends Restorationism of their Dipika [x] Believes in Prayer [] Reads Bible or Church materials [] There are Spiritual issues to be addressed Jacquard Lace Weaver Interventions [x] Prayer [x] Active listening [] Non-anxious presence [x] Spiritual/emotional support [] Crisis/trauma care [] Spiritual counseling [] Bereavement support [] Provided bereavement packet [] Provided Bible/devotional materials [] Provided toy/stuffed animal, coloring book to patient or family member [] Provided Communion [] Anointing/[place] [] Salvation [x] Completed spiritual assessment [] Other: Impact on Illness or Injury [] Angry [] Fearful [] Anxious [] Often cries [] Exhaustion [] Unable to work [] Unable to attend yazdanism [] Unable to walk/stand [] Unable to read [] Unable to drive [] Unable to eat/drink [] Unable to sleep [] Unable to be with family [] Patient intubated [] Other: Summary Time spent with patient 5 min
[2024-12-18] MEDS: potassium chloride ER 20 mEq Tablet 40 MEQ PO (09:16)
[2024-12-18] MEDS: gabapentin 400 mg Capsule PO ×2 (09:16→16:04)
[2024-12-18] MEDS: clopidogrel 75 mg Tablet PO (09:16)
[2024-12-18] MEDS: isosorbide mononitrate ER 30 mg Tablet PO (09:16)
[2024-12-18] MEDS: apixaban 5 mg Tablet PO (09:16)
--- NOTE | 2024-12-18 14:29 | P.PN_ITS ---
Subjective 2 Subjective: Patient seen at bedside. Denies any new shortness of breath or chest pain. Feels okay to go home, has been walking to the bathroom [id number]. Medications: Reviewed: Yes Vitals/I&O/Wt Last Vital Signs Temp 98.7 F 12/18/24 11:55 Pulse 78 12/18/24 11:55 Resp 17 12/18/24 11:55 BP 138/66 12/18/24 11:55 Pulse Ox 92 12/18/24 11:55 O2 Del Method Nasal Cannula 12/18/24 11:55 O2 Flow Rate 3 12/18/24 10:53 12/17/24 12/18/24 12/18/24 22:59 06:59 14:59 Intake Total 240 / 705 680 / 1385 600 / 600 Output Total 1650 / 3950 1000 / 1000 Balance 240 / -1595 -970 / -2565 -400 / -400 Weight last 48 hrs Weight 83.461 kg Weight 83.461 kg Physical Exam 2 Narrative: General: Patient is awake. More fatigued appearing. Head: Normocephalic. Atraumatic. EOM intact. Neck: Elevated JVD. Cardiovascular: RRR. No gallops. No murmurs. Persistent bilateral lower extremity edema, slightly improved from yesterday's exam. Lungs: Breath sounds diminished. Dependent crackles. On nasal cannula support. No wheezing. Skin: No jaundice. No rashes. : Green. Abdomen: Normal bowel sounds, abdomen soft and nontender. Extremities: No cyanosis or clubbing. Musculoskeletal: No erythematous joints. Neurological: Moves all 4 extremities. No myoclonus. Urinary Catheter Management: Green Latex: Cath Placed During This Visit: yes Reason for Continuing Indwelling Catheter: Other Urinary Catheter Date of Insertion: 12/15/24 Urinary Catheter Time of Insertion: 17:50 Data 12/18/24 04:01 12/18/24 04:01 A&P Assessment and plan (1) Congestive heart failure: Qualifiers: Heart failure type: combined systolic and diastolic Heart failure chronicity: acute Qualified Code(s): I50.41 - Acute combined systolic (congestive) and diastolic (congestive) heart failure (2) Coronary artery disease: Qualifiers: Coronary Disease-Associated Artery/Lesion type: [place] artery [place] vs. transplanted heart: [place] heart Associated angina: without angina Q ualified Code(s): I25.10 - Atherosclerotic heart disease of [place] coronary artery without angina pectoris (3) Paroxysmal atrial fibrillation with RVR: (4) Diabetes type 2, uncontrolled: (5) KIMANI (acute kidney injury): (6) Hypoxic encephalopathy: Plan Acute on chronic heart failure with preserved ejection fraction exacerbation - Continuous telemetry monitoring - Strict I's and O's via Green catheter - Daily weights - Continue Lasix 40 mg IV BIDAC - HOLD AM dose due to hypokalemia - Discontinue amlodipine - would discontinue at discharge as well - Gabapentin dosing reduced - Hold metolazone - Monitor renal function Acute kidney injury - Suspect cardiorenal physiology - Renal function improving with diuresis - Renally dose medications as needed - Repeat labs tomorrow Hypokalemia 2/2 loop diuresis - Replace K with oral and PO formulations - Telemetry Acute hypoxic respiratory insufficiency - Provide supplemental oxygen - Volume control diuresis Shakiness/jitteriness - May be related to hypoxia - No further complaints since admission Paroxysmal atrial fibrillation History of tachy-maryann syndrome status post pacemaker - Follows w/ cardiology clinic - Continue amiodarone - pt reports she thinks her amiodarone was recently discontinued - Continue apixaban for stroke prophylaxis Type 2 diabetes mellitus - Hold metformin - Sliding-scale insulin correction Coronary artery disease - Continue Imdur - Continue Plavix DVT prophylaxis: Apixaban CODE STATUS: Full code 12/18/24 Hemoglobin 9.8, creatinine 1.0 improved Continue Lasix IV 40 mg twice daily Need home oxygen evaluation Probable discharge in a.m. PDMP PDMP Reviewed: Not Reviewed Attestations 2 Medical Necessity Statement*: Pt requires ongoing hospitalization for supplemental oxygen supportive, IV diuresis, potassium replacement, telemetry monitoring, serial labs and supportive care. Time Spent in Patient Care: 15 minutes Coding Level of Care Code Acute Code for Chg Fwd Diagnoses Acute combined systolic and diastolic congestive heart failure I50.41 Heart failure type: combined systolic and diastolic Heart failure chronicity: acute Coronary artery disease involving [place] coronary artery of [place] heart without angina pectoris I25.10 Coronary Disease-Associated Artery/Lesion type: [place] artery [place] vs. transplanted heart: [place] heart Associated angina: without angina Paroxysmal atrial fibrillation with RVR I48.0 Diabetes type 2, uncontrolled KIMANI (acute kidney injury) N17.9 Hypoxic encephalopathy G93.1 Time Spent (min) 15
--- NOTE | 2024-12-18 16:46 | P.DS_ITS ---
Discharge Providers Date of Admission: 12/17/24 10:04 Date of Discharge: December 18, 2024 Attending Provider at Admission: Esteban Jaramillo MD Attending Provider at Discharge: Silvia Pike MD Primary Care Provider: Devon Walton MD Diagnoses at Discharge Discharge Diagnosis (1) Congestive heart failure: Status: Acute Qualifiers: Heart failure type: combined systolic and diastolic Heart failure chronicity: acute Qualified Code(s): I50.41 - Acute combined systolic (congestive) and diastolic (congestive) heart failure (2) Coronary artery disease: Status: Acute Qualifiers: Coronary Disease-Associated Artery/Lesion type: [place] artery [place] vs. transplanted heart: [place] heart Associated angina: without angina Qualified Code(s): I25.10 - Atherosclerotic heart disease of [place] coronary artery without angina pectoris (3) Paroxysmal atrial fibrillation with RVR: Status: Acute (4) Diabetes type 2, uncontrolled: Status: Acute (5) KIMANI (acute kidney injury): Status: Acute (6) Hypoxic encephalopathy: Status: Acute Reason for Visit Reason for Visit: sob Brief History: Chela Rodriguez is a 79 year old female with a past medical history significant for paroxysmal atrial fibrillation, obstructive sleep apnea, type 2 diabetes mellitus, hepatomegaly, coronary artery disease, heart failure with preserved ejection fraction, and multiple other comorbidities who presents emergency department with shortness of breath. Patient reports symptoms for the past 2 weeks with progressive worsening. She endorses associated symptoms of lower e xtremity swelling that has progressively worsened reaching her abdomen. She states that her shoes no longer fit. She states that she cannot bend her knees due to the edema in her legs. She endorses occasional nonproductive cough. Denies fevers, chills, nausea or emesis. Exertion worsens symptoms. Rest improves. She states her physician has been titrating her diuretics. She states about 3 days ago she was taken off Lasix and started on metolazone. She also notes recent changes into her Aldactone dosing. Of note, she also reports a development of clumsiness in her upper extremities. She states that some movements of become jerky and she is dropped her cup multiple times. Denies other focal neurological complaints. ABG negative for CO2 retention. In the emergency department, patient was found to be fluid overloaded. She was found to be hypoxic requiring supplemental oxygen support. Patient denies prior needs for oxygen. Hospital Course Hospital Course Plan Acute on chronic heart failure with preserved ejection fraction exacerbation - Continuous telemetry monitoring - Strict I's and O's via Green catheter - Daily weights - Continue Lasix 40 mg IV BIDAC - HOLD AM dose due to hypokalemia - Discontinue amlodipine - would discontinue at discharge as well - Gabapentin dosing reduced - Hold metolazone - Monitor renal function Acute kidney injury - Suspect cardiorenal physiology - Renal function improving with diuresis - Renally dose medications as needed - Repeat labs tomorrow Hypokalemia 2/2 loop diuresis - Replace K with oral and PO formulations - Telemetry Acute hypoxic respiratory insufficiency - Provide supplemental oxygen - Volume control diuresis Shakiness/jitteriness - May be related to hypoxia - No further complaints since admission Paroxysmal atrial fibrillation History of tachy-maryann syndrome status post pacemaker - Follows w/ cardiology clinic - Continue amiodarone - pt reports she thinks her amiodarone was recently discontinued - Continue apixaban for stroke prophylaxis Type 2 diabetes mellitus - Hold metformin - Sliding-scale insulin correction Coronary artery disease - Continue Imdur - Continue Plavix DVT prophylaxis: Apixaban CODE STATUS: Full code 12/18/24 Hemoglobin 9.8, creatinine 1.0 improved Continue Lasix IV 40 mg twice daily Need home oxygen evaluation She is doing well, qualified for home oxygen.will discharge her today. Physical Exam Narrative: General: Patient is awake. More fatigued appearing. Head: Normocephalic. Atraumatic. EOM intact. Neck: Elevated JVD. Cardiovascular: RRR. No gallops. No murmurs. Persistent bilateral lower extremity edema, slightly improved from yesterday's exam. Lungs: Breath sounds diminished. Dependent crackles. On nasal cannula support. No wheezing. Skin: No jaundice. No rashes. : Green. Abdomen: Normal bowel sounds, abdomen soft and nontender. Extremities: No cyanosis or clubbing. Musculoskeletal: No erythematous joints. Neurological: Moves all 4 extremities. No myoclonus. Urinary Catheter Management: Green Latex: Cath Placed During This Visit: yes Reason for Continuing Indwelling Catheter: Other Urinary Catheter Date of Insertion: 12/15/24 Urinary Catheter Time of Insertion: 17:50 Discharge Data Studies Completed and Pending Completed Studies During Hospitalization Category Date Time Status XR chest 1V portable [id number] Stat Exams 12/15/24 12:54 Completed Radiology Impressions Chest X-Ray 12/15/24 12:54 IMPRESSION: 1. A normally positioned intact dual lead cardiac pacemaker is now seen. 2. Probable focal linear atelectasis in the right lower lung field. Patchy opacities in the left base/retrocardiac area are unchanged and may be chronic or reflect summation shadows. Laboratory Results WBC 10.02 10^3/uL (3.29-11.43) 12/18/24 04:01 RBC 3.54 10^6/uL (3.85-5.65) L 12/18/24 04:01 Hgb 9.80 g/dL (11.27-16.99) L 12/18/24 04:01 Hct 30.8 % (36-47) L 12/18/24 04:01 MCV 87.0 fl (85-98) 12/18/24 04:01 MCH 27.7 pg (27-33) 12/18/24 04:01 MCHC 31.8 g/dL (30-55) 12/18/24 04:01 RDW 13.3 % (12.1-15.1) 12/18/24 04:01 Plt Count 343 10^3/cmm (157-399) 12/18/24 04:01 MPV 10.3 fL (7.4-10.4) 12/18/24 04:01 Neut % (Auto) 83.3 % 12/18/24 04:01 Lymph % (Auto) 6.3 % 12/18/24 04:01 [place] % (Auto) 8.0 % 12/18/24 04:01 Eos % (Auto) 1.5 % 12/18/24 04:01 Baso % (Auto) 0.3 % 12/18/24 04:01 Neut # (Auto) 8.35 10^3/uL (1.8-7.7) H 12/18/24 04:01 Lymph # (Auto) 0.6 10^3/uL (0.8-4.8) L 12/18/24 04:01 [place] # (Auto) 0.8 10^3/uL (0.2-0.9) 12/18/24 04:01 Eos # (Auto) 0.2 10^3/uL (0.0-0.8) 12/18/24 04:01 Baso # (Auto) 0.0 10^3/uL (0.0-0.1) 12/18/24 04:01 Nucleated RBC % (auto) 0 % 12/18/24 04:01 Nucleated RBCs # 0.0 /100WBC 12/18/24 04:01 PT 25.80 SECONDS (12.1-14.9) H 12/15/24 11:35 INR 2.21 (0.8-1.2) H 12/15/24 11:35 Specimen Type Arterial 12/15/24 15:16 Sample Site Radial, right 12/15/24 15:16 ABG pH 7.44 (7.35-7.45) 12/15/24 15:16 ABG pCO2 46.7 mmHg (35-45) H 12/15/24 15:16 ABG pO2 65.9 mmHg (80.0-100.0) L 12/15/24 15:16 ABG PO2/FiO2 Ratio 183 12/15/24 15:16 ABG HCO3 31.8 mmol/L (22-26) H 12/15/24 15:16 ABG Base Excess 6.7 mmol/L (-2.0-2.0) H 12/15/24 15:16 Ramesh Test Pos 12/15/24 15:16 Hematocrit 34.0 % (37-47) L 12/15/24 15:16 O2 Delivery Device Nc 12/15/24 15:16 O2 Liters/Min 4.0 % 12/15/24 15:16 FiO2 36.0 % 12/15/24 15:16 Senior Behavioral Scientist ID [email or web address] 12/15/24 15:16 Sodium 140 mmol/L (136-145) 12/18/24 04:01 Potassium 3.4 mmol/L (3.5-5.1) L 12/18/24 04:01 Chloride 92 mmol/L (98-107) L 12/18/24 04:01 Carbon Dioxide 35 mmol/L (22-29) H 12/18/24 04:01 Anion Gap 16.4 (5-19) 12/18/24 04:01 BUN 43 mg/dL (8-23) H 12/18/24 04:01 Creatinine 1.0 mg/dL (0.5-0.9) H 12/18/24 04:01 GFR Calculation Not Reportable 12/18/24 04:01 Glucose 159 mg/dL (65-115) H 12/18/24 04:01 POC Glucose 162 mg/dL (70-110) H 12/16/24 07:32 Calculated Osmolality 292 mOsm/kg (285-295) 12/16/24 03:03 Calcium 10.0 mg/dL (8.5-10.5) 12/18/24 04:01 Phosphorus 3.5 mg/dL (2.5-4.5) 12/18/24 04:01 Magnesium 1.9 mg/dL (1.7-2.3) 12/18/24 04:01 Total Bilirubin 0.7 mg/dL (0.15-1.2) 12/16/24 03:03 AST 14 U/L (0-32) 12/16/24 03:03 ALT 8 U/L (0-33) 12/16/24 03:03 Alkaline Phosphatase 63 U/L (35-105) 12/16/24 03:03 NT-Pro-B Natriuret Pep 5425 pg/mL (0-450) H 12/18/24 04:01 Total Protein 6.8 g/dL (6.6-8.7) 12/16/24 03:03 Albumin 4.1 g/dL (3.5-5.2) 12/18/24 04:01 Globulin 2.7 g/dL (1.3-4.6) 12/16/24 03:03 Procalcitonin 0.09 ng/mL (0-0.5) 12/15/24 11:35 Ur Random Sodium 74 mmol/L 12/15/24 18:00 Ur Random Potassium 19 mmol/L 12/15/24 18:00 Ur Random Chloride 85 mmol/L 12/15/24 18:00 Influenza A (PCR) Negative (Negative) 12/15/24 13:15 Influenza Type B (PCR) Negative (Negative) 12/15/24 13:15 RSV (PCR) Negative (Negative) 12/15/24 13:15 SARS-CoV-2 (PCR) Negative (Negative) 12/15/24 13:15 Vitals Last Vital Signs Temp 98.7 F 12/18/24 11:55 Pulse 78 12/18/24 11:55 Resp 17 12/18/24 11:55 BP 138/66 12/18/24 11:55 Pulse Ox 92 12/18/24 11:55 O2 Del Method Nasal Cannula 12/18/24 11:55 O2 Flow Rate 3 12/18/24 10:53 Discharge Plan Discharge Patient Disposition: Home Condition: Stable Prescriptions: Continued hydrocodone-acetaminophen 7.5-325 mg tablet 1 - 2 tab PO Q6H PRN (Reason: Pain) isosorbide mononitrate 30 mg tablet extended release 24 hr 30 mg PO BID Qty: 180 3RF amiodarone [Pacerone] 200 mg tablet 200 mg PO BID Qty: 60 11RF gabapentin 600 mg tablet 600 mg PO TID Qty: 90 11RF metformin 500 mg tablet extended release 24 hr 1,000 mg PO QAM Qty: 180 3RF prednisone 20 mg tablet See Rx Instructions PO .COMPLEX PRN (Reason: joint pain flare) Qty: 30 1RF Rx Instructions: Take 1 tablet by mouth daily for 3 to 7 days as needed for joint pain flare. spironolactone 50 mg tablet 50 mg PO DAILY Qty: 30 11RF metolazone 5 mg tablet 5 mg PO DAILY Qty: 30 11RF clopidogrel 75 mg tablet 75 mg PO DAILY Qty: 90 3RF apixaban 5 mg tablet 5 mg PO BID Qty: 60 11RF nitroglycerin 0.4 mg Tablet, Sublingual 0.4 mg sublingual Q5M PRN (Reason: Chest Pain) Qty: 25 0RF Discontinued amlodipine 10 mg tablet 10 mg PO DAILY Discharge Orders: Discharge Order (Routine); Ordered 12/18/24 Ordered By: Silvia Pike Other Ambulatory Orders: DME: Oxygen (Order) Location: None Selected Ordered By: Silvia Pike Referrals: Devon Walton MD [Primary Care Provider] - 12/27/24 12:10 pm Discharge Diet: Cardiac Discharge Activity: Increase activity as tolerated Patient Instructions: Using Oxygen at Home (GEN), CHF Stoplight, Opioid Safety Discharge Attestations Time Spent in Discharge Care*: less than 30 min Quality Metrics Clinical Quality Measures [ No reported AMI, CVA or VTE this stay] Coding Level of Care Code Acute Code for Chg Fwd Diagnoses Acute combined systolic and diastolic congestive heart failure I50.41 Heart failure type: combined systolic and diastolic Heart failure chronicity: acute Coronary artery disease involving [place] coronary artery of [place] heart without angina pectoris I25.10 Coronary Disease-Associated Artery/Lesion type: [place] artery [place] vs. transplanted heart: [place] heart Associated angina: without angina Paroxysmal atrial fibrillation with RVR I48.0 Diabetes type 2, uncontrolled KIMANI (acute kidney injury) N17.9 Hypoxic encephalopathy G93.1 Time Spent (min) 20
== END 2024-12-18 17:29 | disposition home or self-care (01) | DRG 292 ==
LOC: ER 16:17 → MEDSURG 16:38
PROVIDERS: Admitting Provider Internal Medicine; Emergency Provider Emergency Medicine; PCP Family Medicine; Visit Provider Internal Medicine
DX: I50.23 Acute on chronic systolic (congestive) heart failure (principal); G93.1 Anoxic brain damage, not elsewhere classified; N17.9 Acute kidney failure, unspecified; I25.10 Atherosclerotic heart disease of native coronary artery without angina pectoris; I48.0 Paroxysmal atrial fibrillation; Z79.01 Long term (current) use of anticoagulants; E11.9 Type 2 diabetes mellitus without complications; G47.33 Obstructive sleep apnea (adult) (pediatric); E87.6 Hypokalemia; R06.89 Other abnormalities of breathing; R09.02 Hypoxemia; Z79.84 Long term (current) use of oral hypoglycemic drugs; Z79.02 Long term (current) use of antithrombotics/antiplatelets
CPT/HCPCS: 36415; 36416; 36600; 51702; 71045; 80053; 80069; 82436; 82803; 82962; 83735; 83880; 84100; 84133; 84145; 84300; 85025; 85610; 87637; 94664; 94760; 96374; 96375; 99285; G0378; J1938; J1940; J2405; J3480; J9999

== ENCOUNTER → 2025-01-11 09:13 | Outpatient (BNVA) | payer MEDICARE, SELFPAY | PROVIDERS: PCP Family Medicine; Visit Provider Family Medicine | DX: I50.32 Chronic diastolic (congestive) heart failure (principal) | CPT/HCPCS: 80048 ==

== ENCOUNTER → 2025-01-25 08:42 | Outpatient (BNVA) | payer MEDICARE, SELFPAY | PROVIDERS: PCP Family Medicine; Visit Provider Family Medicine | DX: I50.32 Chronic diastolic (congestive) heart failure (principal); I48.91 Unspecified atrial fibrillation | CPT/HCPCS: 80053; 85025 ==

== ENCOUNTER → 2025-02-05 12:38 | Outpatient (BNVA) | payer MEDICARE, SELFPAY | PROVIDERS: PCP Family Medicine; Visit Provider Family Medicine | DX: I48.91 Unspecified atrial fibrillation (principal) | CPT/HCPCS: 85025 ==

== ENCOUNTER → 2025-02-18 12:40 | Outpatient (BNVA) | payer MEDICARE, SELFPAY | PROVIDERS: PCP Family Medicine; Visit Provider Family Medicine | DX: I50.32 Chronic diastolic (congestive) heart failure (principal) | CPT/HCPCS: 80048; 85025 ==

== ENCOUNTER → 2025-02-25 12:21 | Outpatient (BNVA) | payer MEDICARE, SELFPAY | PROVIDERS: PCP Family Medicine; Visit Provider Family Medicine | DX: I50.9 Heart failure, unspecified (principal); D64.9 Anemia, unspecified | CPT/HCPCS: 80048; 85025 ==

== ENCOUNTER 2025-02-27 03:34 | Emergency (ER) | payer MEDICARE, SELFPAY ==
--- NOTE | 2025-02-27 03:35 | XRR_ITS ---
PROCEDURE INFORMATION: Exam: XR Chest Exam date and time: 02/27/2025 3:54 AM Age: 79 years old Clinical indication: Pain; Chest pressure; Prior surgery; Surgery date: 6+ months; Surgery type: Pacemaker TECHNIQUE: Imaging protocol: Radiologic exam of the chest. Views: 1 view. COMPARISON: CR XR chest 1V portable [id number] 12/15/2024 1:03 PM FINDINGS: Tubes, catheters and devices: Dual lead electronic cardiac device projects over the left chest. Lungs: No large focal consolidation. Pleural spaces: No large pleural effusion. No distinct pneumothorax. Heart/Mediastinum: Cardiomediastinal silhouette is midline and stable in size. Diaphragm: Persistent elevation of the right hemidiaphragm. Bones/joints: Osseous structures are unchanged. XR/XR chest 1V portable [id number] IMPRESSION: No acute cardiopulmonary findings.
--- NOTE | 2025-02-27 03:35 | ECG_ITS ---
[employer] Test Date: 2025-02-27 Pat Name: Chela Rodriguez Department: Room: Gender: Female Operations Consultant: : [id number] Requested By: Tyler Main Order Number: [id number] Reading MD: Measurements Intervals [place] Rate: 63 P: -43 DC: 173 QRS: -65 QRSD: 197 T: 102 QT: 562 QTc: 579 Interpretive Statements ELECTRONIC ATRIAL PACEMAKER ELECTRONIC VENTRICULAR PACEMAKER PROLONGED QT INTERVAL CRITICAL TEST RESULT [email or web address]
[2025-02-27 03:36] VITALS: BP 137/76; PULSE 63; RESP 15; TEMP 36.6; O2SAT 97; BMI 30.2
--- OUTSIDE RECORDS SUMMARY | 2025-02-27 03:41 | XMS_ITS | Encounter Summary ---
Author Organization [facility] Address [address] [place] [address] Care Team Providers Care Purchasing Analyst Name Role Phone Devon Walton MD Primary Care Provider [phone] Encounter Details Date Type Department Care Team (Latest Contact Info) Description 01/18/2006 Outpatient Historical [facility] Cardiovascular Services [address] [place] [address] [place] [address] Megan Lewis MD [address] [place] [address] Palpitations (Primary Dx) Social History Tobacco Use Types Packs/Day Years Used Date Smoking Tobacco: Never Assessed Comments Unknown Sex and Gender Information Value Date Recorded Sex Assigned at Not on file Legal Sex Female 3:49 AM ACCOUNTING SUPPORT SPECIALIST Gender Identity Not on file Sexual Orientation Not on file documented as of this encounter Plan of Treatment Not on file documented as of this encounter Visit Diagnoses Diagnosis Palpitations- Primary documented in this encounter Care Teams Purchasing Analyst Relationship Specialty Start Date End Date Devon Walton MD [address] [place] [address] PCP - General 11/10/05 documented as of this encounter
--- OUTSIDE RECORDS SUMMARY | 2025-02-27 03:41 | XMS_ITS | Encounter Summary ---
Author Organization [facility] Address [address] [place] [address] Care Team Providers Care Dolly Driver Name Role Phone Devon Walton MD Primary Care Provider [phone] Encounter Details Date Type Department Care Team (Late st Contact Info) Description 03/29/2006 Outpatient Historical [facility] Cardiology- [place] [address] [place] [address] Nena Granado, MONALISA [address] [place] [phone] Other Premature Beats (Primary Dx) Social History Tobacco Use Types Packs/Day Years Used Date Smoking Tobacco: Never Assessed Comments Unknown Sex and Gender Information Value Date Recorded Sex Assigned at Not on file Legal Sex Female 3:49 AM UMBRELLA MENDER Gender Identity Not on file Sexual Orientation Not on file documented as of this encounter Plan of Treatment Not on file documented as of this encounter Visit Diagnoses Diagnosis Other premature beats- Primary documented in this encounter Care Teams Dolly Driver Relationship Specialty Start Date End Date Devon Walton MD [address] [place] [address] PCP - General 11/10/05 documented as of this encounter
--- OUTSIDE RECORDS SUMMARY | 2025-02-27 03:41 | XMS_ITS | Encounter Summary ---
Author Organization [facility] Address [address] [place] [address] Care Team Providers Care Diamond Sizer Name Role Phone Devon Walton MD Primary Care Provider [phone] Encounter Details Date Type Department Care Team (Latest Contact Info) Description 04/29/2005 Outpatient Historical [facility] Cardiology- [place] [address] [place] [address] Megan Lewis MD [address] [place] [address] PALPITATIONS (Primary Dx); PAROX ATRIAL TACHYCARDIA; PREMATURE BEATS NEC; OBESITY NOS Social History Tobacco Use Types Packs/Day Years Used Date Smoking Tobacco: Never Assessed Comments Unknown Sex and Gender Information Value Date Recorded Sex Assigned at Not on file Legal Sex Female 3:49 AM INSPECTOR HANDBAG FRAMES Gender Identity Not on file Sexual Orientation Not on file documented as of this encounter Plan of Treatment Not on file documented as of this encounter Visit Diagnoses Diagnosis Palpitations- Primary Paroxysmal supraventricular tachycardia Other premature beats Obesity, unspecified documented in this encounter Care Teams Diamond Sizer Relationship Specialty Start Date End Date Devon Walton MD [address] [place], [place] [address] PCP - General 11/10/05 documented as of this encounter
--- OUTSIDE RECORDS SUMMARY | 2025-02-27 03:41 | XMS_ITS | Encounter Summary ---
Author Organization [facility] Address [address] Pineda: [place] [address] Care Team Providers Care Capacity Planning Analyst Name Role Phone Devon Walton MD Primary Care Provider Encounter Details Date Type Department Care Team (Late st Contact Info) Description 06/05/2002 Inpatient Historical Aakash Whaley MD NO ADDRESS ON FILE Social History Tobacco Use Types Packs/Day Years Used Date Smoking Tobacco: Never Assessed Comments Unknown Sex and Gender Information Value Date Recorded Sex Assigned at Not on file Legal Sex Female 3:49 AM FIRE ALARM DISPATCHER Gender Identity Not on file Sexual Orientation Not on file documented as of this encounter Plan of Treatment Not on file documented as of this encounter Visit Diagnoses Not on filedocumented in this encounter Care Teams Capacity Planning Analyst Relationship Specialty Start Date End Date Devon Walton MD [address] [place], [place] [id number] PCP - General 11/10/05 documented as of this encounter
--- OUTSIDE RECORDS SUMMARY | 2025-02-27 03:41 | XMS_ITS | Encounter Summary ---
Author Organization [facility] Address [address] [place] [address] Care Team Providers Care Commissary Superintendent Name Role Phone Devon Walton MD Primary Care Provider [phone] Encounter Details Date Type Department Care Team (Latest Contact Info) Description 01/18/2006 Outpatient Historical [facility] Cardiology- [place] [address] [place] [phone] Nena Granado, MONALISA [address] [place] [phone] Paroxysmal Supraventricular Tachycardia (Primary Dx); Unspecified Essential Hypertension; Palpitations; DM w/o Complication Type II (CMS/HCC) Social History Tobacco Use Types Packs/Day Years Used Date Smoking Tobacco: Never Assessed Comments Unknown Sex and Gender Information Value Date Recorded Sex Assigned at Not on file Legal Sex Female 3:49 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 Gender Identity Not on file Sexual Orientation Not on file documented as of this encounter Plan of Treatment Not on file documented as of this encounter Visit Diagnoses Diagnosis Paroxysmal supraventricular tachycardia- Primary Unspecified essential hypertension Palpitations Type II or unspecified type diabetes mellitus without mention of complication, not stated as uncontrolled documented in this encounter Care Teams Commissary Superintendent Relationship Specialty Start Date End Date Devon Walton MD [address] [place], [place] [id number] PCP - General 11/10/05 documented as of this encounter
--- OUTSIDE RECORDS SUMMARY | 2025-02-27 03:41 | XMS_ITS | Encounter Summary ---
Author Organization [facility] Address [address] [place] [address] Care Team Providers Care Golf Club Repairer Name Role Phone Devon Walton MD Primary Care Provider Encounter Details Date Type Department Care Team (Late st Contact Info) Description 11/10/2005 Outpatient Historical [facility] Megan Lewis MD [address] [place] [address] Paroxysmal Supraventricular Tachycardia (Primary Dx) Social History Tobacco Use Types Packs/Day Years Used Date Smoking Tobacco: Never Assessed Comments Unknown Sex and Gender Information Value Date Recorded Sex Assigned at Not on file Legal Sex Female 3:49 AM EDUCATION COORDINATOR Gender Identity Not on file Sexual Orientation Not on file documented as of this encounter Plan of Treatment Not on file documented as of this encounter Procedures Procedure Name Priority Date/Time Associated Diagnosis Comments POC GLUCOSE Routine 11/11/2005 6:05 AM EDUCATION COORDINATOR PT AND APTT Routine 11/10/2005 6:05 AM EDUCATION COORDINATOR BASIC METABOLIC PANEL Routine 11/10/2005 6:05 AM EDUCATION COORDINATOR documented in this encounter Results * (ABNORMAL) POC GLUCOSE (11/11/2005 6:05 AM EDUCATION COORDINATOR) GLUCOSE POC 146(H) 60 - 100 mg/dL INTERFACE SYSTEM 11/11/2005 6:05 AM EDUCATION COORDINATOR Historical Provider POINT OF CARE TESTING Final Result Performing Organization Address [facility] de Phone Number INTERFACE SYSTEM Refer to clinic/hospital department * (ABNORMAL) PT AND APTT (11/10/2005 6:05 AM EDUCATION COORDINATOR) PROTIME 12.9 12.6 - 14.9 Secs INTERFACE SYSTEM Comment: As of 05 note change in normal range. INR 0.9 INTERFACE SYSTEM Comment: Expected Values for INR: DVT/PE Goal INR 2.5; range 2.0 - 3.0 Valve Replacement Tissue Goal INR 2.5; range 2.0 - 3.0 Mechanical Goal INR 3.0; range 2.5 - 3.5 POST-MA Goal INR 2.5; range 2.0 - 3.0 or Goal 3.0; range 2.5 - 3.5 Atrial Fibrillation Goal INR 2.5; range 2.0 - 3.0 Ischemic Stroke Goal INR 2.5; range 2.0 - 3.0 For additional information see Guidelines for Anticoagulation available from the pharmacy [facility] PTT 46.7(H) 21.5 - 34.4 Secs INTERFACE SYSTEM Comment: Therapeutic Range: Hi-level PE/DVT heparin protocol 90.1 -110 sec Lo-level PE/DVT heparin protocol 75.1 - 95 sec Cardiac Heparin Protocol 85.1 - 100 sec Neuro Heparin Protocol 70.1 - 85 sec As of 09/29/05 note change in APTT Normal Range. 11/10/2005 6:05 AM EDUCATION COORDINATOR Historical Provider HEMATOLOGY ORDERABLES Final Result Performing Organization Address [facility] Phone Number INTERFACE SYSTEM Refer to clinic/hospital department * BASIC METABOLIC PANEL (11/10/2005 6:05 AM EDUCATION COORDINATOR) GLUCOSE 89 70 - 110 mg/dL INTERFACE SYSTEM BUN 14 7 - 17 mg/dL INTERFACE SYSTEM CREATININE 0.8 0.7 - 1.2 mg/dL INTERFACE SYSTEM SODIUM 141 136 - 145 mEq/L INTERFACE SYSTEM POTASSIUM 4.2 3.5 - 5.0 mEq/L INTERFACE SYSTEM CHLORIDE 104 95 - 110 mEq/L INTERFACE SYSTEM CO2 32 22 - 32 mmol/l INTERFACE SYSTEM ANION GAP 9 9 - 20 mEq/L INTERFACE SYSTEM OSMOLALITY, CALCULATED 290 275 - 295 mOsm/Kg INTERFACE SYSTEM CALCIUM 8.6 8.4 - 10.5 mg/dL INTERFACE SYSTEM 11/10/2005 6:05 AM EDUCATION COORDINATOR us Historical Provider CHEMISTRY ORDERABLES Final R esult INTERFACE SYSTEM Refer to clinic/hospital department documented in this encounter Visit Diagnoses Diagnosis Paroxysmal supraventricular tachycardia- Primary documented in this encounter Care Teams Golf Club Repairer Relationship Specialty Start Date End Date Devon Walton MD [address] [place] [id number] PCP - General 11/10/05 documented as of this encounter
--- OUTSIDE RECORDS SUMMARY | 2025-02-27 03:41 | XMS_ITS | Encounter Summary ---
Author Organization [facility] Address [address] [place] [address] Care Team Providers Care Plier Worker Name Role Phone Devon Walton MD Primary Care Provider Encounter Details Date Type Department Care Team (Latest Contact Info) Description 02/21/2006 Outpatient Historical [facility] [address] [place] [phone] Nena Granado, MONALISA [address] [place] [phone] Unspecified Essential Hypertension (Primary Dx); Paroxysmal Supraventricular Tachycardia; Other Premature Beats; DM w/o Complication Type II (CMS/HCC) Social History Tobacco Use Types Packs/Day Years Used Date Smoking Tobacco: Never Assessed Comments Unknown Sex and Gender Information Value Date Recorded Sex Assigned at Not on file Legal Sex Female 3:49 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
--- OUTSIDE RECORDS SUMMARY | 2025-02-27 03:41 | XMS_ITS | Patient Health Record ---
Author Organization [facility] Information Address [address] [place], [place] [id number] Care Team Providers Care Radiology Ct Technologist Name Role Phone Devon Walton MD Primary Care Provider Unavail able Keyshawn KHAN, Geovani Unavailable [phone] Emilee Riggs Unavailable [phone] Allergies Allergen (clinical drug ingredient) Drug/Non Drug Allergy [...] Allergy Active Talwin Unknown Drug Allergy Active Results Component Value Reference Range Notes Urine tox screen / MS if ind icated Reviewed date:06/19/2024 09:25:45 AM Interpretation:Consistent Performing Lab: Notes/Report: Consistent Reason For Referral No Information Medications Medication SIG (Take, Route, Frequency, Duration) Notes Start Date End Date Status methocarbamol 750 mg 1 tab(s) orally 3 times a day Active metOLazone 5 mg 1 tab(s) orally once a day Active metFORMIN 500 mg 1 tab orally once a day Active acetaminophen-hydrocodo ne 325 mg-7.5 mg 1-2 tabs orally Q4-6H prn pain (max 6/day; hold within 4H of planned sleep) for 28 days Do not fill prior to 12/18/24. ICD-10: G89.29 12/11/2024 Active amLODIPine 10 mg 1 tab(s) orally once a day for 30 day(s) Active Narcan 4 mg/0.1 mL as directed intranasally once 01/01/2020 Active acetaminophen-hydrocodo ne 325 mg-7.5 mg 1-2 tabs orally Q4-6H prn pain (max 6/day; hold within 4H of planned sleep) for 28 days Do not fill prior to 02/12/25. ICD-10: G89.29 12/11/2024 Active amiodarone 200 mg 1 tab(s) orally 2 times a day Active metoprolol 25 mg 1/2 tab(s) orally once a day Active Benadryl 25 mg 1 cap(s) orally ever y 6 hours Active potassium chloride 20 mEq 1 tab orally QD Active aspirin 81 mg 1 tab orally once a day Active nitroglycerin 0.4 mg 1 tab(s) sublingual ly every 5 minutes Active Eliquis 5 mg 1/2 tab orally 2 times a day Active clopidogrel 75 mg 1 tab(s) orally once a day for 30 day(s) Active spironolactone 25 mg 1 tab orally once a day Active furosemide 40 mg 1 tab orally BID (additional tab PRN) Active ZyrTEC 10 mg 1 tab(s) orally once a day Active Vitamin D2 2000 intl units as directed orally once a day Active isosorbide dinitrate 30 mg 1 tab(s) orally 2 times a day for 30 day(s) Active gabapentin 600 mg 1 tab(s) orally 3 times a day Active acetaminophen-hydrocodo ne 325 mg-7.5 mg 1-2 tabs orally Q4-6H prn pain (max 6/day; hold within 4H of planned sleep) for 28 days Do not fill prior to 01/15/25. ICD-10: G89.29 12/11/2024 Active Social History Tobacco Use: Social History Observation Description Date Details (start date - stop date) Never Smoker NA - NA Tobacco use: Question Answer Notes : nonsmoker AUDIT-C (Standard) Question Answer Notes Did you have a drink containing alcohol in the p ast year? No Points 0 Interpretation Negative Problems Problem Type SNOMED Code ICD Code Onset Dates Problem Status W/U Status Risk Notes Problem Postherpetic neuralgia (8545953) Postherpetic neuralgia (053.19) Active confirmed Problem Thoracic radiculitis (5090621) Thoracic radiculitis NOS (724.4) Active confirmed Problem Spasm (22224556) Muscle spasm (728.85) Active confirmed Problem Hypersomnia (04189807) Hypersomnia (780.54) Active confirmed Problem Sleep dysfunction with sleep stage disturbance (309792445) Dysfunctions associated with sleep stages or arousal from sleep (780.56) Active confirmed Problem Pain in thoracic spine (299137680) Thoracic pain (724.1) Active confirmed Problem Long-term drug therapy (293509926) LONG-TERM USE MEDS NEC (V58.69) Active confirmed R/O substance abuse Problem Anxiety state (348805465) Anxiety State, other, specified: procedure related (300.09) Active confirmed Problem Displacement of thoracic intervertebral disc without myelopathy (48854673) 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) Active confirmed Problem Thoracic spinal stenosis (59850973) Thoracic spinal stenosis (724.01) Active confirmed Problem Thoracic spondylosis without myelopathy (852917775) Thoracic spondylosis without myelopathy (721.2) Active confirmed Problem Obstructive sleep apnea syndrome (50988330) Sleep apnea, obstructive (327.23) Active confirmed Problem Solitary sacroiliitis (810499348) Sacroiliitis, not elsewhere classified (M46.1) Active confirmed Problem Low back pain (538675958) Low back pain (M54.5) Active confirmed Problem Lumbosacral spondylosis without myelopathy (25881475) Spondylosis without myelopathy or radiculopathy, lumbar region (M47.816) Active confirmed Problem High risk drug monitoring status (024638673) 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 of 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 analgesic (Z79.891) Active confirmed Problem Anxiety disorder (505032167) Other specified anxiety disorders (F41.8) Active confirmed Problem Obstructive sleep apnea syndrome (02444583) Obstructive sleep apnea (adult) (pediatric) (G47.33) Active confirmed Problem Chronic pain (40431140) Other chronic pain (G89.29) Active confirmed Problem Acquired spondylolisthesis (861643025) Spondylolisthesi s, lumbar region (M43.16) Active confirmed Problem Thoracic spondylosis without myelopathy (450108778) Spondylosis without myelopathy or radiculopathy, thoracic region (M47.814) Active confirmed Problem Spinal stenosis of thoracic region (85494396) Spinal stenosis, thoracic region (M48.04) Active confirmed Problem Spinal stenosis of lumbar region (77206793) Spinal stenosis, lumbar region (M48.06) Active confirmed Problem Thoracic radiculopathy (25037534) Intervertebral disc disorders with radiculopathy, thoracic region (M51.14) Active confirmed Problem Radiculopathy due to lumbar intervertebral disc disorder (843580330363914) Intervertebral disc disorders with radiculopathy, lumbar region (M51.16) Active confirmed Problem Thoracic radiculopathy (96076796) Radiculopathy, thoracic region (M54.14) Active confirmed Problem Pain in thoracic spine (675314282) Pain in thoracic spine (M54.6) Active confirmed Problem Myalgia (05917894) Myalgia (M79.1) Active confi rmed Problem Neurogenic claudication (848430009) Spinal stenosis, lumbar region with neurogenic claudication (M48.062) Active confirmed Problem Myalgia (74843080) Myalgia of auxiliary muscles, head and neck (M79.12) Active confirmed Problem Low back pain (036732768) Low back pain, unspecified (M54.50) Active confirmed Problem Pain in lumbar spine (557505307) Vertebrogenic low back pain (M54.51) Active confirmed Vital Signs Temperature 97.8 degrees Fahrenheit 12/11/2024 Blood pressure diastolic 60 mm Hg 12/11/2024 Oximetry 90 % 12/11/2024 Height 60 in 12/11/2024 Blood pressure systolic 135 mm Hg 12/11/2024 Weight 173.4 lbs 12/11/2024 BMI 33.86 kg/m2 12/11/2024 Encounters Encounter Location Date Provider Diagnosis [facility] [address] [place], [place] [id number] 04/05/2024 Emilee Holliday Vertebrogenic low ba ck pain M54.51 ; Other chronic pain G89.29 and Obstructive sleep apnea (adult) (pediatric) G47.33 [facility] [address] [place], [place] [id number] 06/19/2024 Geovani Mahajan Vertebrogenic low ba ck pain M54.51 ; Other chronic pain G89.29 ; Obstructive sleep apnea (adult) (pediatric) G47.33 and 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 of opiate analgesic Z79.891 [facility] [address] [place], [place] [id number] 08/14/2024 Geovani Mahajan Vertebrogenic low ba ck pain M54.51 ; Other chronic pain G89.29 and Obstructive sleep apnea (adult) (pediatric) G47.33 [facility] [address] [place], [place] [id number] 10/09/2024 Geovani Mahajan Vertebrogenic low ba ck pain M54.51 ; Other chronic pain G89.29 and Obstructive sleep apnea (adult) (pediatric) G47.33 [facility] [address] [place], [place] [id number] 12/11/2024 Geovani Mahajan Vertebrogenic low ba ck pain M54.51 ; Other chronic pain G89.29 and Obstructive sleep apnea (adult) (pediatric) G47.33 Assessments Encounter Date Diagnosis (ICD Code) Assessment Notes Treatment Notes Treatment Clinical Notes Section Notes 06/19/2024 Other chronic pain (ICD-10 - G89.29) Patient reports that taking her pain medication allows her to begin going through belongings in preparation for move to [place] around the first of the new year. Plan to continue oral opioid medication management. 06/19/2024 Vertebrogenic low back pain (ICD-10 - M54.51) Chronic axial lumbosacral spine pain. 08/14/2024 Other chronic pain (ICD-10 - G89.29) Patient reports that taking her pain medication allows her to prepare for the holiday season. Plan to continue oral opioid medication management. 08/14/2024 Vertebrogenic low back pain (ICD-10 - M54.51) Chronic axial lumbosacral spine pain. 12/11/2024 Vertebrogenic low back pain (ICD-10 - M54.51) Chronic axial lumbosacral spine pain. 10/09/2024 Vertebrogenic low back pain (ICD-10 - M54.51) Chronic axial lumbosacral spine pain. 04/05/2024 Vertebrogenic low back pain (ICD-10 - M54.51) Chronic axial lumbosacral spine pain. 04/05/2024 Obstructive sleep apnea (adult) (pediatric) (ICD-10 - G47.33) Patient with history of untreated sleep apnea and patient declined prior offer for a repeat sleep study and possible treatment; plan to continue to restrict opioid use in relation to sleep for safety concerns. 04/05/2024 Other chronic pain (ICD-10 - G89.29) Patient reports that taking her pain medication allows her to work in her garden. Plan to continue oral opioid medication management. 10/09/2024 Other chronic pain (ICD-10 - G89.29) Patient reports that taking her pain medication allows her to travel to [place] for her many medical appointments. Plan to continue oral opioid medication management. 08/14/2024 Obstructive sleep apnea (adult) (pediatric) (ICD-10 - G47.33) Patient with history of untreated sleep apnea. Patient declined prior offer for a repeat sleep study and possible treatment. Plan to continue to restrict opioid use in relation to sleep for safety concerns. 12/11/2024 Other chronic pain (ICD-10 - G89.29) Patient reports that taking her pain medication allows her to stand to cook for longer periods of time. Plan to continue oral opioid medication management. 06/19/2024 Obstructive sleep apnea (adult) (pediatric) (ICD-10 - G47.33) Patient with history of untreated sleep apnea. Patient declined prior offer for a repeat sleep study and possible treatment. Plan to continue to restrict opioid use in relation to sleep for safety concerns. 06/19/2024 [facility] (current) use of opiate analgesic (ICD-10 - Z79.891) 2022 opioid (OUD) risk tool score = 2. This places the patient in the low risk category. Plan urine toxicology screen today to monitor for presence of any unprescribed or illicit controlled substance(s), as well as prescribed hydrocodone. 12/11/2024 Obstructive sleep apnea (adult) (pediatric) (ICD-10 - G47.33) Plan to continue to restrict opioid use in relation to sleep for safety concerns. 10/09/2024 Obstructive sleep apnea (adult) (pediatric) (ICD-10 - G47.33) Untreated sleep apnea. Plan to continue to restrict opioid use in relation to sleep for safety concerns. 06/19/2024 Other The service was provided by CATE Strange, as part of the ongoing care plan established by Geovani Mahajan MD, who was present in the office for direct supervision during the encounter. 08/14/2024 Other The service was provided by CATE Strange, as part of the ongoing care plan established by Geovani Mahajan MD, who was present in the office for direct supervision during the encounter. 10/09/2024 Other The service was provided by CATE Strange, as part of the ongoing care plan established by Geovani Mahajan MD, who was present in the office for direct supervision during the encounter. 12/11/2024 Other The service was provided by CATE Strange, as part of the ongoing care plan established by Geovani Mahajan MD, who was present in the office for direct supervision during the encounter. Patient was provided with a letter at today's visit informing patient that this clinic is closing due to Dr. Mahajan's half-way; see scanned document. Terminal prescriptions were given to the patient along with tapering instructions. 04/05/2024 Other Plan Of Treatment No Information Insurance Providers Payer Name Payer Address Payer Phone Subscriber Number Group Number Insured Name Patient Relationship to Insured Coverage Start Date Coverage End Date [employer] ADVANTAGE [address] [address] [place] [phone] [id number] Chela Rodriguez Self - patient is the insured Medical (General) History Medical History History ICD Code Chronic pain Low back pain, history of injection ther apy Lumbar spondylosis, disc disease and spo ndylolisthesis Sacroiliitis Mid back pain, history of injection ther apy Thoracic spondylosis, disc disease and s jaime stenosis Myalgia, history TPI therapy Fibromyalgia Polymyositis Neuropathy 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 Patton, 10/2021 Placement of cardiac stent, performed at [facility] in [place], [place], 09/2023 Placement of pacemaker, performed at [facility] in [place], [place], 09/2024 Hospitalization History Reason Date(Month/Year) Chest pain, fluid build up, treated at [facility] , 03/2024 Cardiac work up, 12/2012 [facility], 2008
--- OUTSIDE RECORDS SUMMARY | 2025-02-27 03:41 | XMS_ITS | Encounter Summary ---
Author Organization [facility] Address [address] [place] [address] Care Team Providers Care Tooling Engineering Tech Name Role Phone Devon Walton MD Primary Care Provider Encounter Details Date Type Department Care Team (Late st Contact Info) Description 07/22/2006 Outpatient Historical [facility] Megan Lewis MD [address] [facility] [address] [place] [address] Paroxysmal Supraventricular Tachycardia (Primary Dx) Social History Tobacco Use Types Packs/Day Years Used Date Smoking Tobacco: Never Assessed Comments Unknown Sex and Gender Information Value Date Recorded Sex Assigned at Not on file Legal Sex Female 3:49 AM HIDE COOKING OPERATOR Gender Identity Not on file Sexual Orientation Not on file documented as of this encounter Plan of Treatment Not on file documented as of this encounter Procedures Procedure Name Priority Date/Time Associated Diagnosis Comments POC GLUCOSE Routine 07/23/2006 5:46 AM HIDE COOKING OPERATOR POC GLUCOSE Routine 07/22/2006 9:48 AM HIDE COOKING OPERATOR PT AND APTT Routine 07/22/2006 6:19 AM HIDE COOKING OPERATOR CBC WITHOUT DIFFERENTIAL Routine 07/22/2006 6:19 AM HIDE COOKING OPERATOR BASIC METABOLIC PANEL Routine 07/22/2006 6:19 AM HIDE COOKING OPERATOR documented in this encounter Results * (ABNORMAL) POC GLUCOSE (07/23/2006 5:46 AM HIDE COOKING OPERATOR) GLUCOSE POC 134(H) 60 - 100 mg/dL INTERFACE SYSTEM 07/23/2006 5:46 AM HIDE COOKING OPERATOR Megan Lewis MD POINT OF CARE TESTING Final R esult Performing Organization Address City/[facility] Co de Phone Number INTERFACE SYSTEM Refer to clinic/hospital department * (ABNORMAL) POC GLUCOSE (07/22/2006 9:48 AM HIDE COOKING OPERATOR) GLUCOSE POC 139(H) 60 - 100 mg/dL INTERFACE SYSTEM 07/22/2006 9:48 AM HIDE COOKING OPERATOR Mgean Lewis MD POINT OF CARE TESTING Final R esult Performing Organization Address [facility] de Phone Number INTERFACE SYSTEM Refer to clinic/hospital department * (ABNORMAL) CBC WITHOUT DIFFERENTIAL (07/22/2006 6:19 AM HIDE COOKING OPERATOR) Pathologist [facility] WBC 7.1 4.8 - 10.8 K/ul INTERFACE SYSTEM RBC 4.68 4.20 - 5.40 Mil/ul INTERFACE SYSTEM HEMOGLOBIN 14.8 12.0 - 16.0 g/dL INTERFACE SYSTEM HEMATOCRIT 41.2 36.0 - 46.0 % INTERFACE SYSTEM MCV 88.0 84.0 - 103.0 Fl INTERFACE SYSTEM MCH 31.6 27.0 - 34.0 pg INTERFACE SYSTEM MCHC 35.9(H) 30.0 - 35.0 g/dL INTERFACE SYSTEM RDW 12.7 11.0 - 14.5 % INTERFACE SYSTEM PLATELETS 240 140 - 440 K/ul INTERFACE SYSTEM MPV 10.5 8.9 - 12.8 Fl INTERFACE SYSTEM NEUTROPHILS 54.1 42.2 - 75.2 % INTERFACE SYSTEM LYMPHOCYTES 31.5 24.0 - 44.0 % INTERFACE SYSTEM MONOCYTES 8.5 2.0 - 10.0 % INTERFACE SYSTEM EOSINOPHILS 5.5 0.0 - 7.0 % INTERFACE SYSTEM BASOPHILS 0.4 0.0 - 1.0 % INTERFACE SYSTEM NEUTROPHIL ABSOLUTE 3.8 2.0 - 8.0 K/uL INTERFACE SYSTEM LYMPHOCYTE ABSOLUTE 2.2 1.2 - 4.0 K/ul INTERFACE SYSTEM MONOCYTE ABSOLUTE 0.6 0.1 - 0.6 K/ul INTERFACE SYSTEM EOSINOPHIL ABSOLUTE 0.4 0.0 - 0.7 K/ul INTERFACE SYSTEM BASOPHILS ABSOLUTE 0.0 0.0 - 0.2 K/ul INTERFACE SYSTEM 07/22/2006 6:19 AM HIDE COOKING OPERATOR Megan Lewis MD HEMATOLOGY ORDERABLES Final R esult Performing Organization Address [facility] Phone Number INTERFACE SYSTEM Refer to clinic/hospital department * (ABNORMAL) PT AND APTT (07/22/2006 6:19 AM HIDE COOKING OPERATOR) PROTIME 13.5 13.0 - 15.7 Secs INTERFACE SYSTEM Comment: As of 06 note change in normal range. INR 0.9 INTERFACE SYSTEM Comment: Expected Values for INR: DVT/PE Goal INR 2.5; range 2.0 - 3.0 Valve Replacement Tissue Goal INR 2.5; range 2.0 - 3.0 Mechanical Goal INR 3.0; range 2.5 - 3.5 POST-CT Goal INR 2.5; range 2.0 - 3.0 or Goal 3.0; range 2.5 - 3.5 Atrial Fibrillation Goal INR 2.5; range 2.0 - 3.0 Ischemic Stroke Goal INR 2.5; range 2.0 - 3.0 For additional information see Guidelines for Anticoagulation available from the pharmacy [facility]. PTT 43.9(H) 21.5 - 34.4 Secs INTERFACE SYSTEM Comment: Therapeutic Range: Hi-level PE/DVT heparin protocol 90.1 -110 sec Lo-level PE/DVT heparin protocol 75.1 - 95 sec Cardiac Heparin Protocol 85.1 - 100 sec Neuro Heparin Protocol 70.1 - 85 sec As of 09/29/05 note change in APTT Normal Range. 07/22/2006 6:19 AM HIDE COOKING OPERATOR Megan Lewis MD HEMATOLOGY ORDERABLES Final R esult Performing Organization Address [facility] Phone Number INTERFACE SYSTEM Refer to clinic/hospital department * (ABNORMAL) BASIC METABOLIC PANEL (07/22/2006 6:19 AM HIDE COOKING OPERATOR) GLUCOSE 152(H) 70 - 110 mg/dL INTERFACE SYSTEM BUN 10 7 - 17 mg/dL INTERFACE SYSTEM CREATININE 0.4(L) 0.7 - 1.2 mg/dL INTERFACE SYSTEM SODIUM 140 136 - 145 mEq/L INTERFACE SYSTEM POTASSIUM 3.5 3.5 - 5.0 mEq/L INTERFACE SYSTEM CHLORIDE 102 95 - 110 mEq/L INTERFACE SYSTEM CO2 32 22 - 32 mmol/l INTERFACE SYSTEM ANION GAP 10 9 - 20 mEq/L INTERFACE SYSTEM OSMOLALITY, CALCULATED 289 275 - 295 mOsm/Kg INTERFACE SYSTEM CALCIUM 9.5 8.4 - 10.5 mg/dL INTERFACE SYSTEM 07/22/2006 6:19 AM HIDE COOKING OPERATOR us Megan Lewis MD CHEMISTRY ORDERABLES Final Re sult INTERFACE SYSTEM Refer to clinic/hospital department documented in this encounter Visit Diagnoses Diagnosis Paroxysmal supraventricular tachycardia- Primary documented in this encounter Care Teams Tooling Engineering Tech Relationship Specialty Start Date End Date Devon Walton MD [address] [place] [address] PCP - General 11/10/05 documented as of this encounter
--- OUTSIDE RECORDS SUMMARY | 2025-02-27 03:41 | XMS_ITS | Encounter Summary ---
Author Organization [facility] Address [address] [place] [address] Care Team Providers Care Senior Consulting Manager Name Role Phone Devon Walton MD Primary Care Provider [phone] Reason for Visit * Reason Onset Date Comments Running Late For Appt This Morning 10/11/2024 Encounter Details Date Type Department Care Team (Late st Contact Info) Description 10/11/2024 Telephone [facility] [address] [facility] [address] [place] [phone] Megan Lewis MD [address] [facility] [address] [place] [phone] Running Late For Appt This Morning Social History Tobacco Use Types Packs/Day Years Used Date Smoking Tobacco: Never Smokeless Tobacco: Never Alcohol Use Standard Drinks/Week Comments Never 0 (1 standard drink = 0.6 oz pur e alcohol) Feeling Safe Answer Date Recorded Are you in a relationship wi th someone who hurts you emotionally and/or physically? No 09/13/2024 Food Insecurity Answer Date Recorded Social/Environmental Concerns No concerns Transportation Needs Answer Date Record ed Social/Environmental Concerns No concerns Housing Stability Answer Date Recorded Social/Environmental Concerns No concerns Utility Needs Answer Date Recorded Social/Environmental Concerns No concerns Comments No Sex and Gender Information Value Date Recorded Sex Assigned at Not on file Legal Sex Female 5:53 AM NEEDLE VALVE OPERATOR Gender Identity Not on file Sexual Orientation Not on file documented as of this encounter Miscellaneous Notes * Telephone Encounter - Debra Perez - 10/11/2024 9:13 AM CST Joshua Caller: Chela - [phone] Message: caller is in [place] now (9:11AM) and is on her way to her appt. Advised that she would likely need to reschedule. Patient is asking to be seen due to driving two hours already. LE VALVE OPERATOR documented in this encounter Plan of Treatment Upcoming Encounters Date Type Department Care Team (Late st Contact Info) Description 03/14/2025 1:30 PM CDT Procedure visit [facility] [address] [place] [phone] Megan Lewis MD [address] [place] [phone] 05/21/2025 11:40 AM CDT Office Visit [facility] [address] [place] [phone] Megan Lewis MD [address] [place] [phone] Earl Betancourt CRNP [address], [address] [place] [phone] documented as of this encounter Visit Diagnoses Not on filedocumented in this encounter Care Teams Senior Consulting Manager Relationship Specialty Start Date End Date Devon Walton MD [address] [place] [phone] PCP - General 11/10/05 documented as of this encounter
--- OUTSIDE RECORDS SUMMARY | 2025-02-27 03:41 | XMS_ITS | Encounter Summary ---
Author Organization [facility] Address [address] [place] [address] Care Team Providers Care Information Management Officer Name Role Phone Devon Walton MD Primary Care Provider [phone] Encounter Details Date Type Department Care Team (Late st Contact Info) Description 05/31/2005 Outpatient Historical [facility] Cardiology- [place] [address] [place] [address] Megan Lewis MD [address] [phone] Sinoatrial node dysfunct (Primary Dx); PAROX ATRIAL TACHYCARDIA; PREMATURE BEATS NEC; OBESITY NOS Social History Tobacco Use Types Packs/Day Years Used Date Smoking Tobacco: Never Assessed Comments Unknown Sex and Gender Information Value Date Recorded Sex Assigned at Not on file Legal Sex Female 3:49 AM ABNORMAL PSYCHOLOGY TEACHER Gender Identity Not on file Sexual Orientation Not on file documented as of this encounter Plan of Treatment Not on file documented as of this encounter Visit Diagnoses Diagnosis Sinoatrial node dysfunct- Primary Sinoatrial node dysfunction Paroxysmal supraventricular tachycardia Other premature beats Obesity, unspecified documented in this encounter Care Teams Information Management Officer Relationship Specialty Start Date End Date Devon Walton MD [address] [place] [address] PCP - General 11/10/05 documented as of this encounter
--- OUTSIDE RECORDS SUMMARY | 2025-02-27 03:41 | XMS_ITS | Encounter Summary ---
Author Organization [facility] Address [address] [place] [address] Care Team Providers Care Endodontic Assistant Name Role Phone Devon Walton MD Primary Care Provider Encounter Details Date Type Department Care Team (Latest Contact Info) Description 05/02/2006 Outpatient Historical [facility] Cardiology- [place] [address] [place] [phone] Nena Granado, [place] [address] [place] [phone] Paroxysmal Supraventricular Tachycardia (Primary Dx); Other Premature Beats; Palpitations Social History Tobacco Use Types Packs/Day Years Used Date Smoking Tobacco: Never Assessed Comments Unknown Sex and Gender Information Value Date Recorded Sex Assigned at Not on file Legal Sex Female 3:49 AM DAY CARE ATTENDANT Gender Identity Not on file Sexual Orientation Not on file documented as of this encounter Plan of Treatment Not on file documented as of this encounter Visit Diagnoses Diagnosis Paroxysmal supraventricular tachycardia- Primary Other premature beats Palpitations documented in this encounter Care Teams Endodontic Assistant Relationship Specialty Start Date End Date Devon Walton MD [address] [place] [phone] PCP - General 11/10/05 documented as of this encounter
--- OUTSIDE RECORDS SUMMARY | 2025-02-27 03:41 | XMS_ITS | Encounter Summary ---
Author Organization [facility] Address [address] [place] [address] Care Team Providers Care Freight Checker Name Role Phone Devon Walton MD Primary Care Provider [phone] Encounter Details Date Type Department Care Team (Latest Contact Info) Description 04/30/2005 Outpatient Historical [facility] Cardiovascular Services [place] [address] 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
--- OUTSIDE RECORDS SUMMARY | 2025-02-27 03:41 | XMS_ITS | Encounter Summary ---
Author Organization [facility] Address [address] [facility] Attn: [place] [address] Care Team Providers Care Lead Oracle Developer Name Role Phone Devon Walton MD Primary Care Provider Encounter Details Date Type Department Care Team (Late st Contact Info) Description 12/16/2000 Inpatient Historical Garrison Peterson MD [address] [place] [phone] Social History Tobacco Use Types Packs/Day Years Used Date Smoking Tobacco: Never Assessed Comments Unknown Sex and Gender Information Value Date Recorded Sex Assigned at Not on file Legal Sex Female 3:49 AM CUFFER Gender Identity Not on file Sexual Orientation Not on file documented as of this encounter Plan of Treatment Not on file documented as of this encounter Visit Diagnoses Not on filedocumented in this encounter Care Teams Lead Oracle Developer Relationship Specialty Start Date End Date Devon Walton MD [address] [place], [place] [phone] PCP - General 11/10/05 documented as of this encounter
--- OUTSIDE RECORDS SUMMARY | 2025-02-27 03:41 | XMS_ITS | Clinical Summary ---
Author Organization [facility] Address [address] [place] [address] Care Team Providers Care Roof Foreman Name Role Phone Devon Walton MD Primary Care Provider Allergies Active Allergy Reactions Criticality Noted Date Comments Cosme Inhibitors Unknown 07/30/2015 Canagliflozin Urinary Retention Low 09/02/2016 Codeine Unknown 07/30/2015 Losartan Dizziness Low 09/02/2016 Meperidine Unknown 07/30/2015 Pentazocine Lactate Unknown 07/30/2015 Nidkuav-Vpp-Bpj Reductase Inhibitors Unknown 07/30/2015 Unclassified Drug Unknown 07/30/2015 Beta blockers Medications furosemide (LASIX) 40 mg tabletIndications:Type 2 diabetes mellitus with hyperglycemia (CMS/HCC),Chronic congestive heart failure, unspecified congestive heart failure type (CMS/HCC),Pure hypercholesterolemia Take 40 mg by mouth 2 times daily. Active spironolactone (ALDACTONE) 25 mg tabletIndications:Type 2 diabetes mellitus with hyperglycemia (CMS/HCC),Chronic congestive heart failure, unspecified congestive heart failure type (CMS/HCC),Pure hypercholesterolemia Take 25 mg by mouth daily. Active POTASSIUM CHLORIDE ORALIndications:Type 2 diabetes mellitus with hyperglycemia (CMS/HCC),Chronic congestive heart failure, unspecified congestive heart failure type (CMS/HCC),Pure hypercholesterolemia Take 20 mEq by mouth daily. Active cetirizine (ZYRTEC) 10 mg tabletIndications:Type 2 diabetes mellitus with hyperglycemia (CMS/HCC),Chronic congestive heart failure, unspecified congestive heart failure type (CMS/HCC),Pure hypercholesterolemia Take 10 mg by mouth daily. Active cholecalciferol, Vitamin D3, (VITAMIN D3) 1,000 unit CapsuleIndications:Type 2 diabetes mellitus with hyperglycemia ([facility]),Chronic congestive heart failure, unspecified congestive heart failure type ([facility]/HCC),Pure hypercholesterolemia Take by mouth 2 times daily. Active OTHERIndications:Type 2 diabetes mellitus with hyperglycemia ([facility]/HCC),Chronic congestive heart failure, unspecified congestive heart failure type ([facility]/HCC),Pure hypercholesterolemia Hydrocodone /apap 7.5/ 325 One every 4 hours . Active methotrexate (RHEUMATREX) 2.5 mg Tablet Take 2.5 mg by mouth every 7 days. 4 tablets weekly Active folic acid (FOLVITE) 1 mg tablet Take 1 mg by mouth daily. Active aspirin (WINSTON) 325 mg tabletIndications:Type 2 diabetes mellitus with hyperglycemia, without long-term current use of insulin ([facility]),Nontoxic multinodular goiter Take 325 mg by mouth daily. Active OneToProximagen Delica Plus Lanc Dev Kit USE TO TEST BLOOD SUGARS DAILY 1 Each Active lancets (One Touch Delica) 33 gauge USE ONE LANCET DAILY 100 Each 6 020 Active blood sugar diagnostic (OreeTouch Verio test strips) Strip USE ONE TEST STRIP DAILY 100 Strip 6 Active tofacitinib (Xeljanz) 5 mg Tablet Take 5 mg by mouth 2 times daily. Active metFORMIN (GLUCOPHAGE XR) 500 mg Extended Release 24 hour tabletIndications:Type 2 diabetes mellitus with hyperglycemia, without long-term current use of insulin ([facility]) TAKE 2 TABLETS BY MOUTH EVERY MORNING 180 Tablet 3 Active glimepiride (AMARYL) 4 mg tabletIndications:Type 2 diabetes mellitus with hyperglycemia, without long-term current use of insulin ([facility]) TAKE 1 TABLET BY MOUTH TWO TIMES DAILY 180 Tablet 3 021 Active Active Problems Problem Noted Date Diagnosed Date Nontoxic multinodular goiter 08/07/2015 Type 2 diabetes mellitus with hyperglycemia 07/07 CHF (congestive heart failure) 07/30/2015 Hyperlipemia 07/30/2015 Immunizations Immunization Administration Dates Next Due Influenza Vaccine High Dose 65+ Yrs IM 6 Social History Tobacco Use Types Packs/Day Years Used Date Smoking Tobacco: Never Alcohol Use Standard Drinks/Week Comments Not Asked 0 (1 standard drink = 0.6 oz pur e alcohol) Comments Unknown Sex and Gender Information Value Date Recorded Sex Assigned at Not on file 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 Gender Identity Not on file Sexual Orientation Not on file Last Filed Vital Signs Vital Sign Reading Time Taken Comments Blood Pressure 138/84 01/23/2021 3:06 PM CDT Pulse 67 01/23/2021 3:06 PM CDT Temperature - - Respiratory Rate - - Oxygen Saturation 97% 01/23/2021 3:06 PM CDT Inhaled Oxygen Concentration - - Weight 84.4 kg (186 lb) 01/23/2021 3:06 PM CDT Height 157.5 cm (5' 2 ) 01/23/2021 3:06 PM CDT Body Mass Index 34.02 01/23/2021 3:06 PM CDT Plan of Treatment Health Maintenance Due Date Last Done Comments DIABETES ANNUAL FOOT EXAM 1964 DIABETES MICROALBUMIN ANNUAL SCREEN 1964 DTAP/TDAP/TD VACCINES (1 - Tdap) 1965 PNEUMOCOCCAL VACCINE 50+ YEA RS (1 of 2 - PCV) 1965 ZOSTER VACCINE (1 of 2) 1996 DIABETES ANNUAL RETINAL EXAM 05/24/2018, 09/24/2015, 01/06/2015, Additional history exists LDL CHOLESTEROL ANNUAL 11/04/2020 , 01/20/2017, 09/04/2015, Additional history exists DIABETES HBA1C Q 6 MONTHS 06/24/20212020, 06/25/2020, 06/25/2020, Additional history exists RSV VACCINE (60+ or ) (1 - 1-dose 75+ series) 2021 INFLUENZA VACCINE (#1) 2024 07/02/2016 OSTEOPOROSIS SCREENING 10/23/2024 10/23/2019, 2015 Procedures Procedure Name Priority Date/Time Associated Diagnosis Comments HEMOGLOBIN A1C Routine 12/23/2020 12:48 PM CDT Type 2 diabetes mellitus with hyperglycemia, without long-term current use of insulin ([facility]) LIPID PANEL Routine 11/05/2019 from Last 3 Months or Most Recently Relevant to Health Maintenance Results * (ABNORMAL) HEMOGLOBIN A1C (12/23/2020 12:48 PM CDT) HEMOGLOBIN A1C 7.5(H) See Comment % 12/23/2020 8:54 PM CDT [facility] EST. AVG GLUCOSE, A1C 169 mg/dL 12/23/2020 8:54 PM CDT [facility] Blood Venipuncture / Unknown 12/23/2020 12:48 PM CDT 12/23/2020 8:24 PM CDT Narrative [facility] - 12/23/2020 8:54 PM CDT HGB A1C INTERPRETATION NORMAL: <5.7% PRE-DIABETES: 5.7 - 6.4% DIABETES: 6.5% OR GREATER Falsely low A1C measurements can occur when: 1. Anemia and/or hemolytic anemia is present. 2. Hemoglobin variants present. 3. Renal failure. 4. Transfusion of blood product in the last 120 days. We recommend ordering a fructosamine test([id number]) to more accurately assess glycemic status if any of the above conditions are present. Luis Alberto Kapadia MD CHEMISTRY ORDERABLES Final Result [facility] CLIA# [id number] [address] [place] [address] * LIPID PANEL (11/05/2019) Pathologist [facility] ABSTRACTED CHOLESTEROL 166 ABSTRACTED TRIGLYCERIDE 175 ABSTRACTED HDL 38 ABSTRACTED LDL CALCULATED 101 CHOLESTEROL TRIGLYCERIDE HDL LDL CALCULATED Blood 11/05/2019 Luis Alberto Kapadia MD CHEMISTRY ORDERABLES Final Result from Last 3 Months or Most Recently Relevant to Health Maintenance Insurance [id number] [place] [address] MEDICARE PART A AND B [facility] MONALISA ZAMBRANO [id number] Care Teams Roof Foreman Relationship Specialty Start Date End Date Devon Walton MD [address] [place] [phone] PCP - General 11/10/05
--- OUTSIDE RECORDS SUMMARY | 2025-02-27 03:41 | XMS_ITS | Encounter Summary ---
Author Organization [facility] Address [address] [place] [address] Care Team Providers Care Cardiac Cath Lab Radiology Technologist Name Role Phone Devon Walton MD Primary Care Provider Reason for Visit * Reason Onset Date Comments Appointment Notification 01/15/2025 Encounter Details Date Type Department Care Team (Late st Contact Info) Description 01/15/2025 Telephone [facility] [address] [facility] [address] [place] [phone] Megan Lewis MD [address] [facility] [address] [place] [phone] Appointment Notification Social History Tobacco Use Types Packs/Day Years Used Date Smoking Tobacco: Never Smokeless Tobacco: Never Alcohol Use Standard Drinks/Week Comments Never 0 (1 standard drink = 0.6 oz pur e alcohol) Feeling Safe Answer Date Recorded Are you in a relationship wi th someone who hurts you emotionally and/or physically? No 09/13/2024 Food Insecurity Answer Date Recorded Patient needs follow up regardin 01/04/2025 Transportation Needs Answer Date Record ed Patient needs follow up regardin 01/04/2025 Housing Stability Answer Date Recorded Social/Environmental Concerns No concerns Utility Needs Answer Date Recorded Patient needs follow up regardin 01/04/2025 Comments No Sex and Gender Information Value Date Recorded Sex Assigned at Not on file Legal Sex Female 5:53 AM CLINIC OFFICE COORDINATOR Gender Identity Not on file Sexual Orientation Not on file documented as of this encounter Miscellaneous Notes * Telephone Encounter - Andra Zadii - 01/15/2025 8:14 AM CDT Provider: Joshua MESSAGE Pt is needing to reschedule her appt today for a pace maker check, she has the stomach bug, please advise. Andra Zaidi, [facility] Cardiology [facility], Advanced PSR documented in this encounter Plan of Treatment Upcoming Encounters Date Type Department Care Team (Late st Contact Info) Description 03/14/2025 1:30 PM CDT Procedure visit [facility] [address] [place] [phone] Megan Lewis MD [address] [place] [phone] 05/21/2025 11:40 AM CDT Office Visit [facility] [address] [place] [phone] Megan Lewis MD [address] [place] [phone] Earl Betancourt CRNP [address], [address] [place] [phone] documented as of this encounter Visit Diagnoses Not on filedocumented in this encounter Care Teams Cardiac Cath Lab Radiology Technologist Relationship Specialty Start Date End Date Devon Walton MD [address] [place] [phone] PCP - General 11/10/05 documented as of this encounter
--- OUTSIDE RECORDS SUMMARY | 2025-02-27 03:41 | XMS_ITS | Clinical Summary ---
Author Organization [facility] tone Address [address] [place] [address] Care Team Providers Care Clay Stain Mixer Name Role Phone Devon Walton MD Primary Care Provider Allergies Active Allergy Reactions Criticality Noted Date Comments Cosme Inhibitors Unknown 07/30/2015 Bimatoprost Headache Low 03/24/2022 Brimonidine Headache Low 03/24/2022 Canagliflozin Urinary Retention Low 09/02/2016 Codeine Unknown 07/30/2015 Exenatide Constipation High 03/24/2022 Losartan Dizziness Low 09/02/2016 Meperidine Unknown 07/30/2015 Pentazocine Lactate Unknown 07/30/2015 Lidzqtq-Cym-Jfc Reductase Inhibitors Unknown 07/30/2015 Unclassified Drug Unknown 07/30/2015 Beta blockers Medications glimepiride (AMARYL) 4 mg tabletIndications:Type 2 diabetes mellitus with hyperglycemia, without long-term current use of insulin ([facility]) TAKE 1 TABLET BY MOUTH TWO TIMES DAILY 180 Tablet 3 020 Active Lancing Device with Lancets (PoderopediaTouch Delica Plus Lanc Dev) Kit USE TO TEST BLOOD SUGARS DAILY 1 Each 0 020 Active tofacitinib (Xeljanz) 5 mg Tablet Take 5 mg by mouth 2 times daily. 021 Active POTASSIUM CHLORIDE ORALIndications:Type 2 diabetes mellitus with hyperglycemia (CMS/HCC),Chronic congestive heart failure, unspecified congestive heart failure type (CMS/HCC),Pure hypercholesterolemia Take 20 mEq by mouth daily. 015 Active furosemide (LASIX) 40 mg tabletIndications:Type 2 diabetes mellitus with hyperglycemia (CMS/HCC),Chronic congestive heart failure, unspecified congestive heart failure type (CMS/HCC),Pure hypercholesterolemia Take 40 mg by mouth 2 times daily. Active cholecalciferol, Vitamin D3, (VITAMIN D3) 25 mcg (1,000 unit) CapsuleIndications:Type 2 diabetes mellitus with hyperglycemia (CMS/HCC),Chronic congestive heart failure, unspecified congestive heart failure type (CMS/HCC),Pure hypercholesterolemia Take by mouth 2 times daily. Active OTHERIndications:Type 2 diabetes mellitus with hyperglycemia (CMS/HCC),Chronic congestive heart failure, unspecified congestive heart failure type (CMS/HCC),Pure hypercholesterolemia Hydrocodone /apap 7.5/ 325 One every 4 hours . Active spironolactone (ALDACTONE) 25 mg tabletIndications:Type 2 diabetes mellitus with hyperglycemia (CMS/HCC),Chronic congestive heart failure, unspecified congestive heart failure type (CMS/HCC),Pure hypercholesterolemia Take 25 mg by mouth daily. Active gabapentin (NEURONTIN) 300 mg capsule TAKE 2 CAPSULES BY MOUTH THREE TIMES DAILY Active ezetimibe (ZETIA) 10 mg tabletIndications:Type 2 diabetes mellitus with hyperglycemia, without long-term current use of insulin ([facility]) Take 1 Tablet (10 mg) by mouth daily. 90 Tablet 2 022 Active folic acid (FOLVITE) 1 mg tablet Take 1 mg by mouth daily. 017 Active blood sugar diagnostic (OneTouch Verio test strips) Strip USE ONE TEST STRIP EVERY DAY 100 Strip 6 023 Active metFORMIN (GLUCOPHAGE XR) 500 mg Extended Release 24 hour tabletIndications:Type 2 diabetes mellitus with hyperglycemia, without long-term current use of insulin ([facility]) take 2 tablets by mouth every morning 180 Tablet 1 023 Active lancets 33 gauge USE ONE LANCET DAILY 100 Each 2 024 Active amiodarone (CORDARONE) 200 mg tablet Take 200 mg by mouth 2 times daily. Active isosorbide mononitrate (IMDUR) 30 mg Extended Release 24 hour tablet Take 30 mg by mouth daily in the morning. Active apixaban (Eliquis) 5 mg tablet Take by mouth 2 times daily. Active clopidogreL (PLAVIX) 75 mg Tablet Take 75 mg by mouth. 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 SSS (sick sinus syndrome) 09/13/2024 Nontoxic multinodular goiter 08/07/2015 Type 2 diabetes mellitus with hyperglycemia 07/07 CHF (congestive heart failure) 07/30/2015 Hyperlipemia 07/30/2015 Encounters Date Type Department Care Team Description 02/19/2025 External Device Data [facility] ABSTRA[facility] Provider, Abstract 02/15/2025 Telephone [place] [address] [place] [phone] Megan Lewis MD Question 02/14/2025 8:00 AM CDT Procedure visit [place] [address] [place] [phone] Megan Lewis MD SSS (sick sinus syndrome) (CMS/HCC) (Primary Dx) 02/04/2025 Telephone [place] [address] [place] [phone] Megan Lewis MD Question 01/31/2025 1:15 PM CDT Procedure visit [place] [address] [place] [phone] Megan Lewis MD SSS (sick sinus syndrome) (CMS/HCC) (Primary Dx); Cardiac pacemaker in situ 01/15/2025 Telephone [place] [address] [place] [phone] Megan Lewis MD Appointment Notification 01/15/2025 [address]phone [facility] [address] [place] [phone] Megan Lewis MD Appointment Notification 01/08/2025 External Device Data [facility] ABSTRACTION Provider, Abstract 01/04/2025 Refill [facility] [address] [place] [phone] Lion Garzon MD 12/25/2024 External Device Data [facility] ABSTRACTION Provider, Abstract 12/25/2024 External Device Data [facility] ABSTRACTION Provider, Abstract 12/14/2024 Telephone [facility] [address] [place] [address] Megan Lewis MD Low Oxygen from Last 3 Months Immunizations Immunization Administration Dates Next Due Influenza Vaccine High Dose 65+ Yrs IM 6 Family History Medical History Relation Name Comments Heart Disease Brother Heart Disease Father Lung Cancer Father Diabetes Mother Heart Disease Mother Ovarian Cancer Sister Relation Name Status Comments Brother Father Mother Sister Social History Tobacco Use Types Packs/Day Years [...] on file Legal Sex Female 5:53 AM PROOFREADER Gender Identity Not on file Sexual Orientation Not on file Last Filed Vital Signs Vital Sign Reading Time Taken Comments Blood Pressure 150/58 09/15/2024 11:22 AM PROOFREADER Pulse 60 09/15/2024 11:22 AM PROOFREADER Temperature 36.1 C (97 F) 09/15/2024 11:22 AM PROOFREADER Respiratory Rate 18 09/15/2024 5:01 AM PROOFREADER Oxygen Saturation 96% 09/15/2024 11:22 AM PROOFREADER Inhaled Oxygen Concentration - - Weight 74.9 kg (165 lb 1 oz) 09/15/2024 5:01 AM PROOFREADER Height 157.5 cm (5' 2 ) 09/13/2024 6:00 PM PROOFREADER Body Mass Index 30.19 09/13/2024 6:00 PM PROOFREADER Plan of Treatment Upcoming Encounters Date Type Department Care Team (Late st Contact Info) Description 03/14/2025 1:30 PM CDT Procedure visit [facility] [address] [place] [phone] Megan Lewis MD [address] [place] [phone] 05/21/2025 11:40 AM CDT Office Visit [facility] [address] [place] [address] Megan Lewis MD [address] [place] [phone] Earl Betancourt CRNP [address], [address] [place] [phone] Health Maintenance Due Date Last Done Comments DIABETES ANNUAL FOOT EXAM 1964 DTAP/TDAP/TD VACCINES (1 - Tdap) 1965 PNEUMOCOCCAL VACCINE 50+ YEA RS (1 of 2 - PCV) 1965 ZOSTER VACCINE (1 of 2) 1996 RSV VACCINE (60+ or ) (1 - 1-dose 75+ series) 2021 DIABETES ANNUAL RETINAL EXAM 11/27/2021, 08/27/2020, 05/24/2017, Additional history exists DIABETES HBA1C Q 6 MONTHS 01/30/20242022, 03/24/2022, 07/13/2021, Additional history exists INFLUENZA VACCINE (#1) 2024 07/12/2022, 2015 COVID-19 Vaccine (2023-2 5 season) 2024 07/27/2023, 06/30/2022, 03/23/2022, Additional history exists DIABETES MICROALBUMIN ANNUAL SCREEN 08/01/2024 08/01/2023, 03/24/2022 LDL CHOLESTEROL ANNUAL 08/01/2024 , 03/24/2022, 11/05/2019, Additional history exists OSTEOPOROSIS SCREENING 10/23/2024 10/23/2019, 2015 Medical Devices Implanted Type Area Platen Builder Up Device Identifier Shelf Expiration Date Model / Serial / Lot Lead Pacing Capsure Fix Novus 45cm [id number] - Csc - [id number] Implanted:Qty: 1 on 09/14/2024 by Megan Lewis MD at [facility] Lead Left: Chest Wall [employer]- CRM - BULK BUY [id number] 07/18/2026 5076-45 / [id number] 5V / Lead Capsurefix Novus Mri 52cm Endocardial Pacing 5076-52 - [id number] Implanted:Qty: 1 on 09/14/2024 by Megan Lewis MD at [facility] Lead Left: Chest Wall [employer]- CRM - BULK BUY [id number] 06/28/2026 5076-52 / [id number] 2V / Pacemaker [place] Xt Dr Mri Ipg Dual Chmbr Surescan [id number] - [id number] Implanted:Qty: 1 on 09/14/2024 by Megan Lewis MD at [facility] Pacemaker Left: Chest Wall [employer]- CRM - BULK BUY [id number] 01/30/2026 [id number] / [id number] 3G / Description:VT monitor rate 162 bpm Procedures Procedure Name Priority Date/Time Associated Diagnosis Comments ND REM INTERROG PM/LDLS PM/IDS <90 D TECH REVIEW Routine 02/14/2025 5:25 AM CDT SSS (sick sinus syndrome) (CMS/HCC) ND REM INTERROG PM/LDLS PM <90 D PHYS/QHP Routine 02/14/2025 5:25 AM CDT SSS (sick sinus syndrome) (CMS/HCC) ND PROGRAM EVAL IMPLANTABLE IN PERSN DUAL LD PACER Routine 01/31/2025 1:39 PM CDT SSS (sick sinus syndrome) ([facility]) Cardiac pacemaker in situ MICROALBUMIN/CREATIN INE RATIO, RANDOM UR Routine 08/01/2023 9:30 AM PROOFREADER Type 2 diabetes mellitus with hyperglycemia, without long-term current use of insulin ([facility]) LIPID PANEL Routine 08/01/2023 9:22 AM PROOFREADER Type 2 diabetes mellitus with hyperglycemia, without long-term current use of insulin ([facility]) HEMOGLOBIN A1C Routine 08/01/2023 9:22 AM PROOFREADER Type 2 diabetes mellitus with hyperglycemia, without long-term current use of insulin ([facility]) from Last 3 Months or Most Recently Relevant to Health Maintenance Results * ND REM INTERROG PM/LDLS PM <90 D PHYS/QHP, ND REM INTERROG PM/LDLS PM/IDS <90 D TECH REVIEW (02/14/2025 5:25 AM CDT) 02/14/2025 5:25 AM CDT Narrative INTERFACE SYSTEM - 02/15/2025 4:27 PM CDT Remote Transmission Report Date of Procedure: February 14, 2025 Events: Since 05 February 2025: 26 monitored VT episodes, 21 EGMs available. 6 monitored VT epsidoes, longest 14 minutes, 35 seconds, fastest rate 171 BPM. EGMS suspect for SVT w/possible retrograde conduction noted. 15 NSVT episodes noted, longest < 1 second, fastest rate 167, EGMs suspect for SVT w/possible retrograde conduction noted. Comments: [facility]link remote transmission reveals normal dual chamber pacemaker function with stable available threshold and impedance trends. Presenting EGM indicates Ventricular Sensing, 142 BPM. EGM c/w sinus rhythm, however, atrial undersensing of p waves noted. Follow-up 03-14-2025, in clinic device check. Sooner with EP Provider, PRN. . See attached report for details. No charge. Procedure Note Provider, Historical - 02/15/2025 Remote Transmission Report Date of Procedure: February 14, 2025 Events: Since 05 February 2025: 26 monitored VT episodes, 21 EGMs available.6 monitored VT epsidoes, longest 14 minutes, 35 seconds, fastest rate 171BPM. EGMS suspect for SVT w/possible retrograde conduction noted. 15 NSVT episodes noted, longest < 1 second, fastest rate 167, EGMs suspectfor SVT w/possible retrograde conduction noted. Comments: Carelink remote transmission reveals normal dual chamber pacemakerfunction with stable available threshold and impedance trends. Presenting EGM indicates Ventricular Sensing, 142 BPM. EGM c/w sinusrhythm, however, atrial undersensing of p waves noted. Follow-up 03-14-2025, in clinic device check. Sooner with EP Provider,PRN. . See attached report for details. No charge. us Megan Lewis MD CARDIAC SERVICES ORDERABLES E dited Result - Final INTERFACE SYSTEM Refer to clinic/hospital department * ND PROGRAM EVAL IMPLANTABLE IN PERSN DUAL LD PACER (01/31/2025 1:39 PM CDT) 01/31/2025 1:39 PM CDT Narrative INTERFACE SYSTEM - 02/04/2025 5:20 PM CDT Office Device Check Report Date of Procedure: January 31, 2025 Events: Atrial: 0 (0%), eliquis, per med list. Ventricular: 125 NSVT episodes, longest 2 seconds, fastest rate 171 BPM, 7 monitored AVT epsidoes, longest 18 minutes, 36 seconds, fastest rate 171 BPM. Narrow complex, patient reports no unusual symptoms, patient notes PCP in up -titrating amiodarone and she will return to PCP on 02-05-2025 for visit. Other Episodes: 0 Changes: No changes. Comments: Patient presents to Cardiac Device Office today for follow up 3 month device/wound check. Unable to test thresholds today due to elevated HR. Normal dual chamber pacemaker function with stable thresholds and impedances. Battery reserve is 7.1 years. Presenting - Atrial Sensing and Ventricular Sensing, C/W SVT 130-140 BPM. Patient notes no symptoms. Notes PCP has restarted amiodarone and she will return to that clinic on 02-05-2025 for eval.. Underlying - SVT 130-140 BPM. Instructed patient re: incision care, arm restrictions and recommended follow up. Patient verbalized understanding of all instructions. Follow-up 03-14-2025 in clinic for 3 month chronic adjustments (uable to test thresholds today due to elevated HR). . See attached report for details. Procedure Note Provider, Historical - 02/04/2025 Office Device Check Report Date of Procedure: January 31, 2025 Events: Atrial: 0 (0%), eliquis, per med list. Ventricular: 125 NSVT episodes, longest 2 seconds, fastest rate 171 BPM,7 monitored AVT epsidoes, longest 18 minutes, 36 seconds, fastest rate 171BPM. Narrow complex, patient reports no unusual symptoms, patient notesPCP in up -titrating amiodarone and she will return to PCP on 02-05-2025 for visit. Other Episodes: 0 Changes: No changes. Comments: Patient presents to Cardiac Device Office today for follow up 3 monthdevice/wound check. Unable to test thresholds today due to elevated HR. Normal dual chamber pacemaker function with stable thresholds andimpedances. Battery reserve is 7.1 years. Presenting - Atrial Sensing and Ventricular Sensing, C/W SVT 130-140 BPM.Patient notes no symptoms. Notes PCP has restarted amiodarone and shewill return to that clinic on 02-05-2025 for eval.. Underlying - SVT 130-140 BPM. Instructed patient re: incision care, arm restrictions and recommendedfollow up. Patient verbalized understanding of all instructions. Follow-up 03-14-2025 in clinic for 3 month chronic adjustments (uable totest thresholds today due to elevated HR). . See attached report for details. us Megan Lewis MD CARDIAC SERVICES ORDERABLES E dited Result - Final INTERFACE SYSTEM Refer to clinic/hospital department * (ABNORMAL) MICROALBUMIN/CREATININE RATIO, RANDOM UR (08/01/2023 9:30 AM PROOFREADER) Creatinine, Urine 12(L) 20 - 275 mg/dL [facility] MICROALBUMIN, URINE 5.7 See Note: mg/dL [facility] Comment: Reference Range: Reference Range Not established MICROALBUMIN/CREAT RATIO, UR 475(H) <30 mcg/mg creat [facility] Comment: The ADA defines abnormalities in albumin excretion as follows: Albuminuria Category Result (mcg/mg creatinine) Normal to Mildly increased <30 Moderately increased 30-299 Severely increased > OR = 300 The ADA recommends that at least two of three specimens collected within a 3-6 month period be abnormal before considering a patient to be within a diagnostic category. Test Performed at: [facility] [place] [address] Marilynn Pisano MD Urine URINE SPECIMEN OBTAINED BY CLEAN CATCH PROCEDURE / Unknown 08/01/2023 9:30 AM PROOFREADER 08/02/2023 8:04 AM PROOFREADER Lion Garzon MD URINE ORDERABLES Final Result [facility] [phone] [employer] [address] [facility] [place] [address] * (ABNORMAL) HEMOGLOBIN A1C (08/01/2023 9:22 AM PROOFREADER) HEMOGLOBIN A1C 7.6(H) <5.7 % of total Hgb [facility] Comment: For someone without known diabetes, a hemoglobin A1c value of 6.5% or greater indicates that they may have diabetes and this should be confirmed with a follow-up test. For someone with known diabetes, a value <7% indicates that their diabetes is well controlled and a value greater than or equal to 7% indicates suboptimal control. A1c targets should be individualized based on duration of diabetes, age, comorbid conditions, and other considerations. Currently, no consensus exists regarding use of hemoglobin A1c for diagnosis of diabetes for children. ESTIMATED AVERAGE GLUCOSE (MG/DL) 171 mg/dL [facility] ESTIMATED AVERAGE GLUCOSE (MMOL/L) 9.5 mmol/L [facility] Comment: Test Performed at: [facility] [address] Marilynn Pisano MD Blood 08/01/2023 9:22 AM PROOFREADER 08/02/2023 5:55 AM PROOFREADER Lion Garzon MD CHEMISTRY ORDERABLES F inal Result [facility] [phone] [facility] [address] [facility] [place] [address] * (ABNORMAL) LIPID PANEL (08/01/2023 9:22 AM PROOFREADER) CHOLESTEROL 232(H) <200 mg/dL [facility] HDL 48(L) > OR = 50 mg/dL [facility] TRIGLYCERIDE 183(H) <150 mg/dL [facility] LDL CALCULATED 152(H) mg/dL (calc) [facility] Comment: Reference range: <100 Desirable range <100 mg/dL for primary prevention; <70 mg/dL for patients with CHD or diabetic patients with > or = 2 CHD risk factors. LDL-C is now calculated using the Guerrero-Givens calculation, which is a validated novel method providing better accuracy than the Friedewald equation in the estimation of LDL-C. Guerrero ZULUAGA et al. DICK. 2013;310(19): 6863-4593 (http://education.LifeBlinx.Change Collective/faq/ROW616) CHOL/HDL RATIO 4.8 <5.0 (calc) [facility] TOTAL NON-HDL CHOL(LDL+VLDL) 184(H) <130 mg/dL (calc) [facility] Comment: For patients with diabetes plus 1 major ASCVD risk factor, treating to a non-HDL-C goal of <100 mg/dL (LDL-C of <70 mg/dL) is considered a therapeutic option. Test Performed at: [facility] [address] [place] [address] Marilynn Pisano MD Blood 08/01/2023 9:22 AM PROOFREADER 08/02/2023 5:56 AM PROOFREADER Lion Garzon MD CHEMISTRY ORDERABLES F inal Result [facility] [phone] [facility] [address] [place], [place] [address] from Last 3 Months or Most Recently Relevant to Health Maintenance Insurance [facility] [id number] [facility] Address: [facility] [address] [place] [address] RX [employer] RX Member Subscriber Plan / Payer (Ef fective 2021-Present) Name:Chela Rodriguez Relation to Subscriber:Self Name:Chela Rodriguez Payer ID:Not on file Group ID:[id number] Type:RX Medicare Part D Address: [address] Advance Directives For more information, please contact: [phone] Documents on File Type Date Recorded 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
--- OUTSIDE RECORDS SUMMARY | 2025-02-27 03:41 | XMS_ITS | Encounter Summary ---
Author Organization [facility] Address 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 Gender Identity Not on file Sexual Orientation Not on file documented as of this encounter Plan of Treatment Upcoming Encounters Date Type Department Care Team (Late st Contact Info) Description 03/14/2025 1:30 PM CDT Procedure visit [facility] [address] [place] [phone] Megan Lewis MD [address] [place] [address] 05/21/2025 11:40 AM CDT Office Visit [facility] [address] [place] [address] Megan Lewis MD [address] [place] [address] Earl Betancourt CRNP [address] [place] [address] documented as of this encounter Visit Diagnoses Not on filedocumented in this encounter Care Teams Docketing Specialist Relationship Specialty Start Date End Date Devon Walton MD [address] [place] [phone] PCP - General 11/10/05 documented as of this encounter
--- OUTSIDE RECORDS SUMMARY | 2025-02-27 03:41 | XMS_ITS | Encounter Summary ---
Author Organization [facility] Address [address] [place] [address] Care Team Providers Care Wood Drilling Machine Operator Name Role Phone Devon Walton MD Primary Care Provider [phone] Encounter Details Date Type Department Care Team (Late st Contact Info) Description 07/05/2005 Outpatient Historical [facility] Cardiology- [place] [address] [place] [address] Megan Lewis MD [address] [place] [address] PAROX ATRIAL TACHYCARDIA (Primary Dx); PREMATURE BEATS NEC; OBESITY NOS Social History Tobacco Use Types Packs/Day Years Used Date Smoking Tobacco: Never Assessed Comments Unknown Sex and Gender Information Value Date Recorded Sex Assigned at Not on file Legal Sex Female 3:49 AM 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
--- OUTSIDE RECORDS SUMMARY | 2025-02-27 03:41 | XMS_ITS | Encounter Summary ---
Author Organization [facility] Address [address] [place] [address] Care Team Providers Care Ramp Supervisor Name Role Phone Devon Walton MD Primary Care Provider [phone] Encounter Details Date Type Department Care Team (Latest Contact Info) Description 07/02/1999 Outpatient Historical [facility] Cardiology- [place] [address] [place] [phone] Olga Michelle [address] [facility] [address] [place] [address] Benign hypertension (Primary Dx); Other premature beats Social History Tobacco Use Types Packs/Day Years Used Date Smoking Tobacco: Never Assessed Comments Unknown Sex and Gender Information Value Date Recorded Sex Assigned at Not on file Legal Sex Female 3:49 AM CARE CLINICIAN Gender Identity Not on file Sexual Orientation Not on file documented as of this encounter Plan of Treatment Not on file documented as of this encounter Visit Diagnoses Diagnosis Benign hypertension- Primary Essential hypertension, benign Other premature beats documented in this encounter Care Teams Ramp Supervisor Relationship Specialty Start Date End Date Devon Walton MD [address] [place] [address] PCP - General 11/10/05 documented as of this encounter
--- OUTSIDE RECORDS SUMMARY | 2025-02-27 03:41 | XMS_ITS | Encounter Summary ---
Author Organization [facility] Address [address] [place] [address] Care Team Providers Care Research Quality Assurance Analyst Name Role Phone Devon Walton MD Primary Care Provider Encounter Details Date Type Department Care Team (Latest Contact Info) Description 06/04/1999 Outpatient Historical [facility] Cardiology- [place] [address] [place] [phone] Olga Michelle [address] [facility] [address] [place], [place] [address] Other premature beats (Primary Dx); Benign hypertension Social History Tobacco Use Types Packs/Day Years Used Date Smoking Tobacco: Never Assessed Comments Unknown Sex and Gender Information Value Date Recorded Sex Assigned at Not on file 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
[2025-02-27 03:50] LABS: Basophils % 0.5 %; Eosinophils # 0.2 10^3/uL (0.0-0.8); Hematocrit 26.5 % (36-47); Lymphocytes # 0.6 10^3/uL (0.8-4.8); Lymphocytes % 7.4 %; Mean Corpuscular HGB Conc 30.2 g/dL (30-55); Mean Corpuscular Volume 76.1 fl (85-98); Mean Platelet Volume 10.8 fL (7.4-10.4); Monocytes # 0.5 10^3/uL (0.2-0.9); Monocytes % 6.8 %; Nucleated Red Blood Cells % 0 %; Platelet Count 388 10^3/cmm (157-399); Red Blood Count 3.48 10^6/uL (3.85-5.65); Red Cell Distribution Width 15.8 % (12.1-15.1); White Blood Count 7.93 10^3/uL (3.29-11.43)
--- NOTE | 2025-02-27 03:56 | W.ED.CHESTPA ---
Documented by User: Tyler Patton MD 02/27/25 04:18 HPI - Chest Pain General: Chief Complaint: Chest Pain Stated Complaint: chest pressure Time Seen by Provider: 02/27/25 03:39 History of Present Illness: Patient with a history of pacemaker placement ([employer], September 2023), coronary stent placement (September 2023), and prior episodes of chest pain presents with acute onset of severe nausea and chest pressure. She reports that the nausea was intense and unrelieved by Zofran, prompting her to wake her and seek hospital care. She has experienced increased swelling recently, leading to adjustments in her diuretic (furosemide) dose from 40 mg to 80 mg daily, as advised by her family doctor to avoid hospitalization. She also started Coreg and has a history of adverse reaction to metoprolol (bradycardia to 30s). She monitors her weight daily, noting a recent increase from 157 to 165 lbs after reducing diuretic dose, with her fighting weight typically 130?150 lbs. She denies falls but uses a cane for ambulation. No current shortness of breath, chest pain, or pressure at the time of evaluation; symptoms improved by the time EMS arrived. 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 No suicidal ideation or intent to harm others. Related Data Home Medications ?Medication ?Instructions ?Recorded ?Confirmed hydrocodone 7.5 mg-acetaminophen 1 - 2 tab PO Q6H PRN Pain 09/04/19 02/25/25 325 mg tablet Previous Rx's ?Medication ?Instructions ?Recorded nitroglycerin 0.4 mg sublingual 0.4 mg sublingual Q5M PRN Chest 10/07/23 tablet Pain #25 tabs prednisone 20 mg tablet See Rx Instructions PO .COMPLEX 08/15/24 PRN joint pain flare #30 tabs apixaban 5 mg tablet 5 mg PO BID #60 tabs 09/18/24 spironolactone 50 mg tablet 50 mg PO DAILY #30 tabs 12/27/24 albuterol sulfate 90 mcg/actuation 2 puff inhalation Q6H PRN 01/10/25 aerosol inhaler (Ventolin HFA) shortness of breath or wheezing #8.5 grams metformin 500 mg tablet,extended See Rx Instructions .Route 01/11/25 release 24 hr .COMPLEX #180 tabs clopidogrel 75 mg tablet See Rx Instructions .Route 01/14/25 .COMPLEX #90 tabs isosorbide mononitrate 30 mg See Rx Instructions .Route 01/14/25 tablet,extended release 24 hr .COMPLEX #180 tabs blood sugar diagnostic ([facility] strips 01/18/25 Verio test strips) amiodarone 200 mg tablet (Pacerone) 200 mg PO BID #60 tabs 01/29/25 gabapentin 600 mg tablet 600 mg PO TID #90 tabs 02/18/25 lancets 33 gauge ([facility]18[facility]25 Plus Lancet) furosemide 40 mg tablet 80 mg (2 x 40 mg) PO BID #60 tabs 02/21/25 carvedilol 3.125 mg tablet 6.25 mg (2 x 3.125 mg) PO BID #60 02/25/25 tabs metolazone 5 mg tablet 5 mg PO DAILY #30 tabs 02/25/25 Allergies Allergy/AdvReac Type Severity Reaction Status Date / Time RON Inhibitors Allergy Angioedema Verified 12/15/24 12:11 diltiazem (From Cardizem) Allergy unknown Verified 12/15/24 12:11 lovastatin Allergy bone and Verified 12/15/24 12:11 muscle pain meperidine (From Demerol) Allergy itching Verified 12/15/24 12:11 methadone Allergy unknown Verified 12/15/24 12:11 pentazocine (From Talwin) Allergy nausea, Verified 12/15/24 12:11 vomiting metoprolol AdvReac Severe bradycardia Verified 12/15/24 12:11 alendronate sodium (From AdvReac Intermediate swelling Verified 12/15/24 12:11 Fosamax) codeine AdvReac Intermediate headache Verified 12/15/24 12:11 erythromycin base AdvReac Intermediate Unknown Verified 12/15/24 12:11 losartan AdvReac Intermediate dizzy Verified 12/15/24 12:11 methotrexate AdvReac Intermediate nausea/ Verified 12/15/24 12:11 diarrhea pravastatin (From Pravachol) AdvReac Intermediate cramps Verified 12/15/24 12:11 [facility] PFSH: Medical History Diabetes type 2, uncontrolled Congestive heart failure Paroxysmal atrial fibrillation with RVR Obstructive sleep apnea Diabetes mellitus type 2, controlled Diverticulosis Mesenteric ischemia Hepatomegaly Sleep related hypoxia Coronary artery disease Latent tuberculosis Completed treatment in 2020 Shingles Immunization counseling Latent tuberculosis by blood test Tenosynovitis of ankle Psoriatic arthritis High risk medication use Peroneal tendinitis of both lower legs Osteoarthritis Rotator cuff arthropathy of right shoulder Psoriasis Surgical History History of eye surgery Removal of scar tissue History of tonsillectomy History of appendectomy History of tubal ligation History of cholecystectomy H/O: hysterectomy Family History Mother Diabetes Hypertension Heart disease Brother Hypertension Sister Hypertension Grandmother Stroke Other Cancer Social History Smoking and tobacco/nicotine status: never used tobacco/nicotine Alcohol intake: never Substance/Drug Use: never Physical Exam Const: COMMON NORMALS: no acute distress, patient oriented x3 and alert HENMT: COMMON NORMALS: normocephalic and atraumatic HEAD & SCALP: normocephalic and atraumatic Eye: COMMON NORMALS: Equal, round and reactive pupils present, EOMs intact bilaterally and no scleral icterus PUPIL: Yes Equal, round and reactive pupils present Chest: OTHER: Chest pressure not reproducible with palpation or deep inspiration. Resp: COMMON NORMALS: normal respiratory effort and No retractions OTHER: No respiratory distress. No crackles or wheezes. Cardio: COMMON NORMALS: regular rate, regular rhythm and No murmurs present (Cardio) RATE: regular rate RHYTHM: regular rhythm OTHER: No orthopnea. GI: COMMON NORMALS: Normal to inspection, nondistended, normoactive bowel sounds present, Soft to palpation and non-tender PALPATION: Yes Soft to palpation Extremity: NARRATIVE EXTREMITY EXAM: Trace edema both legs to the knees. Neuro: COMMON NORMALS: patient oriented x3 SENSORIUM/ORIENTATION: Yes alert Skin: COMMON NORMALS: no rashes or lesions noted GENERAL SKIN EXAM: no rashes or lesions noted Course Vital Signs: Vital signs: Vital Signs Temperature 97.8 F 02/27/25 03:36 Pulse Rate 66 02/27/25 05:00 Respiratory Rate 16 02/27/25 05:00 Blood Pressure 119/66 02/27/25 05:00 Pulse Oximetry 92 02/27/25 05:00 Oxygen Delivery Me thod Nasal Cannula 02/27/25 05:00 Oxygen Flow Rate 1 02/27/25 05:00 MDM - Chest Pain Medical Decision Making Patient remained hemodynamically stable and chest pain-free throughout ED course. She states that when she had a stent placed in 2023, her only symptom was nausea and vomiting. At that time she had no chest pain. Given that she had profound nausea and vomiting this morning, I am concerned she may have had a repeat infarction despite being on Plavix. She was given aspirin and nitroglycerin and now is pain-free. Vital signs are stable. She does not appear to be in CHF exacerbation. Troponin will be trended and if it remains normal I feel it is reasonable for her to be discharged home with close follow-up to cardiology. If however troponin is rising she would likely benefit from admission and cardiac consultation. Pertinent details of the case were shared with the [facility] emergency physician who will help facilitate ultimate disposition based on repeat troponin values Lab Data 02/27/25 03:40 02/27/25 03:40 Radiology Impressions Chest X-Ray 02/27/25 03:35 IMPRESSION: No acute cardiopulmonary findings. Laboratory Results WBC 7.93 10^3/uL (3.29-11.43) 02/27/25 03:40 RBC 3.48 10^6/uL (3.85-5.65) L 02/27/25 03:40 Hgb 8.00 g/dL (11.27-16.99) L 02/27/25 03:40 Hct 26.5 % (36-47) L 02/27/25 03:40 MCV 76.1 fl (85-98) L 02/27/25 03:40 MCH 23.0 pg (27-33) L 02/27/25 03:40 MCHC 30.2 g/dL (30-55) 02/27/25 03:40 RDW 15.8 % (12.1-15.1) H 02/27/25 03:40 Plt Count 388 10^3/cmm (157-399) 02/27/25 03:40 MPV 10.8 fL (7.4-10.4) H 02/27/25 03:40 Neut % (Auto) 82.0 % 02/27/25 03:40 Lymph % (Auto) 7.4 % 02/27/25 03:40 [place] % (Auto) 6.8 % 02/27/25 03:40 Eos % (Auto) 2.0 % 02/27/25 03:40 Baso % (Auto) 0.5 % 02/27/25 03:40 Neut # (Auto) 6.50 10^3/uL (1.8-7.7) 02/27/25 03:40 Lymph # (Auto) 0.6 10^3/uL (0.8-4.8) L 02/27/25 03:40 [place] # (Auto) 0.5 10^3/uL (0.2-0.9) 02/27/25 03:40 Eos # (Auto) 0.2 10^3/uL (0.0-0.8) 02/27/25 03:40 Baso # (Auto) 0.0 10^3/uL (0.0-0.1) 02/27/25 03:40 Nucleated RBC % (auto) 0 % 02/27/25 03:40 Nucleated RBCs # 0.0 /100WBC 02/27/25 03:40 PT 15.60 SECONDS (12.1-14.9) H 02/27/25 03:40 INR 1.16 (0.8-1.2) 02/27/25 03:40 APTT 37.2 SECONDS (23.9-36.7) H 02/27/25 03:40 Sodium 132 mmol/L (136-145) L 02/27/25 03:40 Potassium 3.6 mmol/L (3.5-5.1) 02/27/25 03:40 Chloride 86 mmol/L (98-107) L 02/27/25 03:40 Carbon Dioxide 28 mmol/L (22-29) 02/27/25 03:40 Anion Gap 21.6 (5-19) H 02/27/25 03:40 BUN 45 mg/dL (8-23) H 02/27/25 03:40 Creatinine 1.6 mg/dL (0.5-0.9) H 02/27/25 03:40 GFR Calculation Not Reportable 02/27/25 03:40 Glucose 263 mg/dL (65-115) H 02/27/25 03:40 Calculated Osmolality 295 mOsm/kg (285-295) 02/27/25 03:40 Calcium 9.6 mg/dL (8.5-10.5) 02/27/25 03:40 Total Bilirubin 0.5 mg/dL (0.15-1.2) 02/27/25 03:40 AST 17 U/L (0-32) 02/27/25 03:40 ALT 14 U/L (0-33) 02/27/25 03:40 Alkaline Phosphatase 97 U/L (35-105) 02/27/25 03:40 Creatine Kinase 34 U/L (26-192) 02/27/25 03:40 Troponin T Baseline 60 ng/L (0-10) H 02/27/25 03:40 Troponin T 120 Minute 60.30 ng/L (0-10) H 02/27/25 05:50 Delta Troponin T 0.30 ABS# (0-10) 02/27/25 05:50 NT-Pro-B Natriuret Pep 6187 pg/mL (0-450) H 02/27/25 03:40 Total Protein 7.3 g/dL (6.6-8.7) 02/27/25 03:40 Albumin 4.3 g/dL (3.5-5.2) 02/27/25 03:40 Globulin 3.0 g/dL (1.3-4.6) 02/27/25 03:40 EKG Data EKG 1: Interpretation: Time?0340?ventricularly paced rhythm, rate of 63, negative Sgarbossa criteria, no T wave inversions, QTc = 570. Discharge Plan Discharge Patient Disposition: Home Clinical Impression: Chest pressure, Nausea Condition: Stable Prescriptions: No Action hydrocodone-acetaminophen 7.5-325 mg tablet 1 - 2 tab PO Q6H PRN (Reason: Pain) spironolactone 50 mg tablet 50 mg PO DAILY Qty: 30 11RF prednisone 20 mg tablet See Rx Instructions PO .COMPLEX PRN (Reason: joint pain flare) Qty: 30 1RF Rx Instructions: Take 1 tablet by mouth daily for 3 to 7 days as needed for joint pain flare. albuterol sulfate [Ventolin HFA] 90 mcg/actuation HFA aerosol inhaler 2 puff inhalation Q6H PRN (Reason: shortness of breath or wheezing) Qty: 8.5 11RF (DME) lancets [OneTouch Delica Plus Lancet] 33 gauge misc See Rx Instructions .Route Qty: 100 3RF Rx Instructions: As directed amiodarone [Pacerone] 200 mg tablet 200 mg PO BID Qty: 60 11RF furosemide 40 mg tablet 80 mg PO BID Qty: 60 11RF carvedilol 3.125 mg tablet 6.25 mg PO BID Qty: 60 11RF Rx Instructions: must administer with a meal/food metolazone 5 mg tablet 5 mg PO DAILY Qty: 30 11RF apixaban 5 mg tablet 5 mg PO BID Qty: 60 11RF metformin 500 mg tablet extended release 24 hr See Rx Instructions .ROUTE .COMPLEX Qty: 180 3RF Dose Instruction: TAKE 2 TABLETS BY MOUTH EVERY MORNING Rx Instructions: TAKE 2 TABLETS BY MOUTH EVERY MORNING isosorbide mononitrate 30 mg tablet extended release 24 hr See Rx Instructions .ROUTE .COMPLEX Qty: 180 3RF Dose Instruction: TAKE 1 TABLET BY MOUTH TWICE DAILY Rx Instructions: TAKE 1 TABLET BY MOUTH TWICE DAILY clopidogrel 75 mg tablet See Rx Instructions .ROUTE .COMPLEX Qty: 90 3RF Dose Instruction: TAKE 1 TABLET BY MOUTH EVERY DAY Rx Instructions: TAKE 1 TABLET BY MOUTH EVERY DAY (DME) OneTouch Verio test strips Strip See Rx Instructions .ROUTE .COMPLEX Qty: 100 3RF Dose Instruction: USE DIRECTED EVERY DAY Rx Instructions: USE DIRECTED EVERY DAY gabapentin 600 mg tablet 600 mg PO TID Qty: 90 11RF nitroglycerin 0.4 mg Tablet, Sublingual 0.4 mg sublingual Q5M PRN (Reason: Chest Pain) Qty: 25 0RF Discharge Orders: Discharge ED (Routine); Ordered 02/27/25 Ordered By: Kisha Glover Referrals: Devon Walton MD [Primary Care Provider, Family Practice] Discharge Diet: Usual diet Discharge Activity: Increase activity as tolerated Patient Instructions: Noncardiac Chest Pain (ED), Opioid Safety, Pain Management, Patient Portal & Lynn Instructions Activity Restrictions/Additional Instructions: Thank you for choosing [facility] for your healthcare needs today. You have been screened and evaluated and felt safe for discharge. Health conditions do change or evolve sometimes and as such it is important that you follow up with your Primary Doctor to be re checked, 3-5 days is a general good time frame for follow up. You are always welcome to return to the ED for re assessment if your symptoms are worsening or you have new concerns Print Language: Iranian Coding Level of Care Code ED Morning Show Producer for Jan Fwd Documented by User: Kisha Glover MD 02/27/25 06:33 HPI - Chest Pain General: Chief Complaint: Chest Pain Stated Complaint: chest pressure Time Seen by Provider: 02/27/25 03:39 Related Data Home Medications ?Medication ?Instructions ?Recorded ?Confirmed hydrocodone 7.5 mg-acetaminophen 1 - 2 tab PO Q6H PRN Pain 09/04/19 02/25/25 325 mg tablet Previous Rx's ?Medication ?Instructions ?Recorded nitroglycerin 0.4 mg sublingual 0.4 mg sublingual Q5M PRN Chest 10/07/23 tablet Pain #25 tabs prednisone 20 mg tablet See Rx Instructions PO .COMPLEX 08/15/24 PRN joint pain flare #30 tabs apixaban 5 mg tablet 5 mg PO BID #60 tabs 09/18/24 spironolactone 50 mg tablet 50 mg PO DAILY #30 tabs 12/27/24 albuterol sulfate 90 mcg/actuation 2 puff inhalation Q6H PRN 01/10/25 aerosol inhaler (Ventolin HFA) shortness of breath or wheezing #8.5 grams metformin 500 mg tablet,extended See Rx Instructions .Route 01/11/25 release 24 hr .COMPLEX #180 tabs clopidogrel 75 mg tablet See Rx Instructions .Route 01/14/25 .COMPLEX #90 tabs isosorbide mononitrate 30 mg See Rx Instructions .Route 01/14/25 tablet,extended release 24 hr .COMPLEX #180 tabs blood sugar diagnostic (OneTouch #100 strips 01/18/25 Verio test strips) amiodarone 200 mg tablet (Pacerone) 200 mg PO BID #60 tabs 01/29/25 gabapentin 600 mg tablet 600 mg PO TID #90 tabs 02/18/25 lancets 33 gauge (OneTouch Delica #100 ea 02/18/25 Plus Lancet) furosemide 40 mg tablet 80 mg (2 x 40 mg) PO BID #60 tabs 02/21/25 carvedilol 3.125 mg tablet 6.25 mg (2 x 3.125 mg) PO BID #60 02/25/25 tabs metolazone 5 mg tablet 5 mg PO DAILY #30 tabs 02/25/25 Allergies Allergy/AdvReac Type Severity Reaction Status Date / Time RON Inhibitors Allergy Angioedema Verified 12/15/24 12:11 diltiazem (From Cardizem) Allergy unknown Verified 12/15/24 12:11 lovastatin Allergy bone and Verified 12/15/24 12:11 muscle pain meperidine (From Demerol) Allergy itching Verified 12/15/24 12:11 methadone Allergy unknown Verified 12/15/24 12:11 pentazocine (From Talwin) Allergy nausea, Verified 12/15/24 12:11 vomiting metoprolol AdvReac Severe bradycardia Verified 12/15/24 12:11 alendronate sodium (From AdvReac Intermediate swelling Verified 12/15/24 12:11 Fosamax) codeine AdvReac Intermediate headache Verified 12/15/24 12:11 erythromycin base AdvReac Intermediate Unknown Verified 12/15/24 12:11 losartan AdvReac Intermediate dizzy Verified 12/15/24 12:11 methotrexate AdvReac Intermediate nausea/ Verified 12/15/24 12:11 diarrhea pravastatin (From Pravachol) AdvReac Intermediate cramps Verified 12/15/24 12:11 PFSH ED PFSH: Medical History Diabetes type 2, uncontrolled Congestive heart failure Paroxysmal atrial fibrillation with RVR Obstructive sleep apnea Diabetes mellitus type 2, controlled Diverticulosis Mesenteric ischemia Hepatomegaly Sleep related hypoxia Coronary artery disease Latent tuberculosis Completed treatment in 2020 Shingles Immunization counseling Latent tuberculosis by blood test Tenosynovitis of ankle Psoriatic arthritis High risk medication use Peroneal tendinitis of both lower legs Osteoarthritis Rotator cuff arthropathy of right shoulder Psoriasis Surgical History History of eye surgery Removal of scar tissue History of tonsillectomy History of appendectomy History of tubal ligation History of cholecystectomy H/O: hysterectomy Family History Mother Diabetes Hypertension Heart disease Brother Hypertension Sister Hypertension Grandmother Stroke Other Cancer Social History Smoking and tobacco/nicotine status: never used tobacco/nicotine Alcohol intake: never Substance/Drug Use: never Course Vital Signs: Vital signs: Vital Signs Temperature 97.8 F 02/27/25 03:36 Pulse Rate 66 02/27/25 05:00 Respiratory Rate 16 02/27/25 05:00 Blood Pressure 119/66 02/27/25 05:00 Pulse Oximetry 92 02/27/25 05:00 Oxygen Delivery Me thod Nasal Cannula 02/27/25 05:00 Oxygen Flow Rate 1 02/27/25 05:00 MDM - Chest Pain Medical Decision Making Patient remained hemodynamically stable and chest pain-free throughout ED course. She states that when she had a stent placed in 2023, her only symptom was nausea and vomiting. At that time she had no chest pain. Given that she had profound nausea and vomiting this morning, I am concerned she may have had a repeat infarction despite being on Plavix. She was given aspirin and nitroglycerin and now is pain-free. Vital signs are stable. She does not appear to be in CHF exacerbation. Troponin will be trended and if it remains normal I feel it is reasonable for her to be discharged home with close follow-up to cardiology. If however troponin is rising she would likely benefit from admission and cardiac consultation. Pertinent details of the case were shared with the oncoming emergency physician who will help facilitate ultimate disposition based on repeat troponin values Patient care transitioned to [place] at shift change. Awaiting final troponin. This was 60 and unchanged. Baseline elevation secondary to renal function. Creatinine is 1.6. She has some chronic renal insufficiency. Her creatinine varies between 1 and 1.7 in the past year. Stable anemia with a hemoglobin of 8. Patient discharged home Lab Data 02/27/25 03:40 02/27/25 03:40 Radiology Impressions Chest X-Ray 02/27/25 03:35 IMPRESSION: No acute cardiopulmonary findings. Laboratory Results WBC 7.93 10^3/uL (3.29-11.43) 02/27/25 03:40 RBC 3.48 10^6/uL (3.85-5.65) L 02/27/25 03:40 Hgb 8.00 g/dL (11.27-16.99) L 02/27/25 03:40 Hct 26.5 % (36-47) L 02/27/25 03:40 MCV 76.1 fl (85-98) L 02/27/25 03:40 MCH 23.0 pg (27-33) L 02/27/25 03:40 MCHC 30.2 g/dL (30-55) 02/27/25 03:40 RDW 15.8 % (12.1-15.1) H 02/27/25 03:40 Plt Count 388 10^3/cmm (157-399) 02/27/25 03:40 MPV 10.8 fL (7.4-10.4) H 02/27/25 03:40 Neut % (Auto) 82.0 % 02/27/25 03:40 Lymph % (Auto) 7.4 % 02/27/25 03:40 [place] % (Auto) 6.8 % 02/27/25 03:40 Eos % (Auto) 2.0 % 02/27/25 03:40 Baso % (Auto) 0.5 % 02/27/25 03:40 Neut # (Auto) 6.50 10^3/uL (1.8-7.7) 02/27/25 03:40 Lymph # (Auto) 0.6 10^3/uL (0.8-4.8) L 02/27/25 03:40 [place] # (Auto) 0.5 10^3/uL (0.2-0.9) 02/27/25 03:40 Eos # (Auto) 0.2 10^3/uL (0.0-0.8) 02/27/25 03:40 Baso # (Auto) 0.0 10^3/uL (0.0-0.1) 02/27/25 03:40 Nucleated RBC % (auto) 0 % 02/27/25 03:40 Nucleated RBCs # 0.0 /100WBC 02/27/25 03:40 PT 15.60 SECONDS (12.1-14.9) H 02/27/25 03:40 INR 1.16 (0.8-1.2) 02/27/25 03:40 APTT 37.2 SECONDS (23.9-36.7) H 02/27/25 03:40 Sodium 132 mmol/L (136-145) L 02/27/25 03:40 Potassium 3.6 mmol/L (3.5-5.1) 02/27/25 03:40 Chloride 86 mmol/L (98-107) L 02/27/25 03:40 Carbon Dioxide 28 mmol/L (22-29) 02/27/25 03:40 Anion Gap 21.6 (5-19) H 02/27/25 03:40 BUN 45 mg/dL (8-23) H 02/27/25 03:40 Creatinine 1.6 mg/dL (0.5-0.9) H 02/27/25 03:40 GFR Calculation Not Reportable 02/27/25 03:40 Glucose 263 mg/dL (65-115) H 02/27/25 03:40 Calculated Osmolality 295 mOsm/kg (285-295) 02/27/25 03:40 Calcium 9.6 mg/dL (8.5-10.5) 02/27/25 03:40 Total Bilirubin 0.5 mg/dL (0.15-1.2) 02/27/25 03:40 AST 17 U/L (0-32) 02/27/25 03:40 ALT 14 U/L (0-33) 02/27/25 03:40 Alkaline Phosphatase 97 U/L (35-105) 02/27/25 03:40 Creatine Kinase 34 U/L (26-192) 02/27/25 03:40 Troponin T Baseline 60 ng/L (0-10) H 02/27/25 03:40 Troponin T 120 Minute 60.30 ng/L (0-10) H 02/27/25 05:50 Delta Troponin T 0.30 ABS# (0-10) 02/27/25 05:50 NT-Pro-B Natriuret Pep 6187 pg/mL (0-450) H 02/27/25 03:40 Total Protein 7.3 g/dL (6.6-8.7) 02/27/25 03:40 Albumin 4.3 g/dL (3.5-5.2) 02/27/25 03:40 Globulin 3.0 g/dL (1.3-4.6) 02/27/25 03:40 All radiology interpretation(s) finalized by discharge Discharge Plan Discharge Patient Disposition: Home Clinical Impression: Chest pressure, Nausea Condition: Stable Prescriptions: No Action hydrocodone-acetaminophen 7.5-325 mg tablet 1 - 2 tab PO Q6H PRN (Reason: Pain) spironolactone 50 mg tablet 50 mg PO DAILY Qty: 30 11RF prednisone 20 mg tablet See Rx Instructions PO .COMPLEX PRN (Reason: joint pain flare) Qty: 30 1RF Rx Instructions: Take 1 tablet by mouth daily for 3 to 7 days as needed for joint pain flare. albuterol sulfate [Ventolin HFA] 90 mcg/actuation HFA aerosol inhaler 2 puff inhalation Q6H PRN (Reason: shortness of breath or wheezing) Qty: 8.5 11RF (DME) lancets [OneTouch Delica Plus Lancet] 33 gauge misc See Rx Instructions .Route Qty: 100 3RF Rx Instructions: As directed amiodarone [Pacerone] 200 mg tablet 200 mg PO BID Qty: 60 11RF furosemide 40 mg tablet 80 mg PO BID Qty: 60 11RF carvedilol 3.125 mg tablet 6.25 mg PO BID Qty: 60 11RF Rx Instructions: must administer with a meal/food metolazone 5 mg tablet 5 mg PO DAILY Qty: 30 11RF apixaban 5 mg tablet 5 mg PO BID Qty: 60 11RF metformin 500 mg tablet extended release 24 hr See Rx Instructions .ROUTE .COMPLEX Qty: 180 3RF Dose Instruction: TAKE 2 TABLETS BY MOUTH EVERY MORNING Rx Instructions: TAKE 2 TABLETS BY MOUTH EVERY MORNING isosorbide mononitrate 30 mg tablet extended release 24 hr See Rx Instructions .ROUTE .COMPLEX Qty: 180 3RF Dose Instruction: TAKE 1 TABLET BY MOUTH TWICE DAILY Rx Instructions: TAKE 1 TABLET BY MOUTH TWICE DAILY clopidogrel 75 mg tablet See Rx Instructions .ROUTE .COMPLEX Qty: 90 3RF Dose Instruction: TAKE 1 TABLET BY MOUTH EVERY DAY Rx Instructions: TAKE 1 TABLET BY MOUTH EVERY DAY (DME) OneTouch Verio test strips Strip See Rx Instructions .ROUTE .COMPLEX Qty: 100 3RF Dose Instruction: USE DIRECTED EVERY DAY Rx Instructions: USE DIRECTED EVERY DAY gabapentin 600 mg tablet 600 mg PO TID Qty: 90 11RF nitroglycerin 0.4 mg Tablet, Sublingual 0.4 mg sublingual Q5M PRN (Reason: Chest Pain) Qty: 25 0RF Discharge Orders: Discharge ED (Routine); Ordered 02/27/25 Ordered By: Kisha Glover Referrals: Devon Walton MD [Primary Care Provider, Family Practice] Discharge Diet: Usual diet Discharge Activity: Increase activity as tolerated Patient Instructions: Noncardiac Chest Pain (ED), Opioid Safety, Pain Management, Patient Portal & Lynn Instructions Activity Restrictions/Additional Instructions: Thank you for choosing [facility] for your healthcare needs today. You have been screened and evaluated and felt safe for discharge. Health conditions do change or evolve sometimes and as such it is important that you follow up with your Primary Doctor to be re checked, 3-5 days is a general good time frame for follow up. You are always welcome to return to the ED for re assessment if your symptoms are worsening or you have new concerns Print Language: Iranian Coding Level of Care Code ED Morning Show Producer for Jan Tran
[2025-02-27 04:09] LABS: Troponin(5th) Baseline 60 ng/L (0-10)
[2025-02-27 04:11] LABS: INR 1.16 (0.8-1.2)
[2025-02-27 04:12] LABS: Partial Thromboplastin Time 37.2 SECONDS (23.9-36.7)
[2025-02-27 04:22] LABS: Alanine Aminotransferase 14 U/L (0-33); Albumin Level 4.3 g/dL (3.5-5.2); Alkaline Phosphatase 97 U/L (35-105); Anion Gap 21.6 (5-19); Aspartate Amino Transferase 17 U/L (0-32); Blood Urea Nitrogen 45 mg/dL (8-23); Calcium 9.6 mg/dL (8.5-10.5); Carbon Dioxide 28 mmol/L (22-29); Chloride 86 mmol/L (98-107); Creatine Phosphokinase 34 U/L (26-192); Creatinine Clr Calc Pharmacy 27.4466; Glucose 263 mg/dL (65-115); NT Pro B Type Natriuretic Pept 6187 pg/mL (0-450); Osmolality Calculated 295 mOsm/kg (285-295); Potassium 3.6 mmol/L (3.5-5.1); Sodium 132 mmol/L (136-145); Total Bilirubin 0.5 mg/dL (0.15-1.2); Total Protein 7.3 g/dL (6.6-8.7)
[2025-02-27 05:00] VITALS: BP 119/66; PULSE 66; RESP 16; O2SAT 92
--- NOTE | 2025-02-27 05:49 | ECG_ITS ---
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
[2025-02-27 06:45] VITALS: BP 121/65; PULSE 60; RESP 17; O2SAT 91
[2025-02-27 06:58] VITALS: BP 121/68; PULSE 60; RESP 16; O2SAT 92
--- NOTE | 2025-02-27 06:58 | PC.NURSE ---
assumed [facility] @[phone]
[2025-02-27 08:08] VITALS: BP 120/70; PULSE 60; O2SAT 94
--- NOTE | 2025-02-27 08:12 | PC.NURSE ---
contacted per pt for ride home; states on his way
[2025-02-27 09:35] VITALS: BP 136/64; PULSE 60; O2SAT 99
== END 2025-02-27 09:36 | disposition home or self-care (01) ==
PROVIDERS: Student in an Organized Health Care Education/Training Program; Emergency Provider Emergency Medicine; PCP Family Medicine
DX: R07.89 Other chest pain (principal); R11.0 Nausea; Z95.0 Presence of cardiac pacemaker; Z79.84 Long term (current) use of oral hypoglycemic drugs; Z79.02 Long term (current) use of antithrombotics/antiplatelets; I25.10 Atherosclerotic heart disease of native coronary artery without angina pectoris; E11.9 Type 2 diabetes mellitus without complications; I50.9 Heart failure, unspecified
CPT/HCPCS: 71045; 80048; 80053; 82550; 83880; 84484; 85025; 85610; 85730; 93005; 99285

== ENCOUNTER 2025-03-02 18:01 | Inpatient (IN) | payer MEDICARE, SELFPAY ==
[2025-03-02] VITALS (7 sets, daily range): BP systolic 148–162; BP diastolic 58–109; PULSE 57–114; RESP 16–18; TEMP 36.8–37.4; O2SAT 90–98; BMI 30.2
--- OUTSIDE RECORDS SUMMARY | 2025-03-02 18:06 | XMS_ITS | Encounter Summary ---
Author Organization [facility] Address [address] [place] [address] Care Team Providers Care Steelscope Operator Name Role Phone Devon Walton MD Primary Care Provider Encounter Details Date Type Department Care Team (Latest Contact Info) Description 01/18/2006 Outpatient Historical [facility] Cardiology- [place] [address] [place] [phone] Nena Granado, MONALISA [address] [place] [phone] Paroxysmal Supraventricular Tachycardia (Primary Dx); Unspecified Essential Hypertension; Palpitations; DM w/o Complication Type II (CMS/HCC) Social History Tobacco Use Types Packs/Day Years Used Date Smoking Tobacco: Never Assessed Comments Unknown Sex and Gender Information Value Date Recorded Sex Assigned at Not on file 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
--- OUTSIDE RECORDS SUMMARY | 2025-03-02 18:06 | XMS_ITS | Encounter Summary ---
Author Organization [facility] Address [address] [place] [address] Care Team Providers Care Molder Helper Name Role Phone Devon Walton MD Primary Care Provider Encounter Details Date Type Department Care Team (Latest Contact Info) Description 02/21/2006 Outpatient Historical [facility] Cardiology- [place] [address] [place] [phone] Nena Granado, MONALISA [address] [place] [phone] Unspecified Essential Hypertension (Primary Dx); Paroxysmal Supraventricular Tachycardia; Other Premature Beats; DM w/o Complication Type II (CMS/HCC) Social History Tobacco Use Types Packs/Day Years Used Date Smoking Tobacco: Never Assessed Comments Unknown Sex and Gender Information Value Date Recorded Sex Assigned at Not on file 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
--- OUTSIDE RECORDS SUMMARY | 2025-03-02 18:06 | XMS_ITS | Encounter Summary ---
Author Organization [facility] Address [address] [place] [address] Care Team Providers Care Slat Basket Top Maker Name Role Phone Devon Walton MD Primary Care Provider [phone] Encounter Details Date Type Department Care Team (Latest Contact Info) Description 01/18/2006 Outpatient Historical [facility] Cardiovascular Services [place] [address] 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
--- OUTSIDE RECORDS SUMMARY | 2025-03-02 18:06 | XMS_ITS | Encounter Summary ---
Author Organization [facility] Address [address] [place] [address] Care Team Providers Care Block Hacker Name Role Phone Devon Walton MD Primary Care Provider Encounter Details Date Type Department Care Team (Late st Contact Info) Description 03/29/2006 Outpatient Historical [facility] Cardiology- [place] [address] [place] [address] Nena Granado, MONALISA [address] [place] [phone] Other Premature Beats (Primary Dx) Social History Tobacco Use Types Packs/Day Years Used Date Smoking Tobacco: Never Assessed Comments Unknown Sex and Gender Information Value Date Recorded Sex Assigned at Not on file 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
--- OUTSIDE RECORDS SUMMARY | 2025-03-02 18:06 | XMS_ITS | Encounter Summary ---
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
--- OUTSIDE RECORDS SUMMARY | 2025-03-02 18:06 | XMS_ITS | Encounter Summary ---
Author Organization [facility] Address [address] [place] [address] Care Team Providers Care Paper Cup Machine Operator Name Role Phone Devon Walton MD Primary Care Provider Encounter Details Date Type Department Care Team (Latest Contact Info) Description 04/29/2005 Outpatient Historical [facility] Cardiology- [place] [address] [place] [address] Megan Lewis MD [address] [facility] [address] [place] [address] PALPITATIONS (Primary Dx); PAROX ATRIAL TACHYCARDIA; PREMATURE BEATS NEC; OBESITY NOS Social History Tobacco Use Types Packs/Day Years Used Date Smoking Tobacco: Never Assessed Comments Unknown Sex and Gender Information Value Date Recorded Sex Assigned at Not on file 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
--- OUTSIDE RECORDS SUMMARY | 2025-03-02 18:06 | XMS_ITS | Encounter Summary ---
Author Organization [facility] Address [address] [place] [address] Care Team Providers Care Stretching Machine Tender Frame Name Role Phone Devon Walton MD Primary Care Provider Encounter Details Date Type Department Care Team (Latest Contact Info) Description 07/02/1999 Outpatient Historical [facility] Cardiology- [place] [address] [place] [phone] Olga Michelle [address] [facility] [address] [place] [address] Benign hypertension (Primary Dx); Other premature beats Social History Tobacco Use Types Packs/Day Years Used Date Smoking Tobacco: Never Assessed Comments Unknown Sex and Gender Information Value Date Recorded Sex Assigned at Not on file 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
--- OUTSIDE RECORDS SUMMARY | 2025-03-02 18:06 | XMS_ITS | Encounter Summary ---
Author Organization [facility] Address [address] [place] [address] Care Team Providers Care Metal Engraver Name Role Phone Devon Walton MD Primary Care Provider [phone] Encounter Details Date Type Department Care Team (Latest Contact Info) Description 06/04/1999 Outpatient Historical [facility] Cardiology- [place] [address] [place] [phone] Olga Michelle [address] [facility] [address] [place], [place] [address] Other premature beats (Primary Dx); Benign hypertension Social History Tobacco Use Types Packs/Day Years Used Date Smoking Tobacco: Never Assessed Comments Unknown Sex and Gender Information Value Date Recorded Sex Assigned at Not on file 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
--- OUTSIDE RECORDS SUMMARY | 2025-03-02 18:06 | XMS_ITS | Encounter Summary ---
Author Organization [facility] Address [address] [facility] 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
--- OUTSIDE RECORDS SUMMARY | 2025-03-02 18:06 | XMS_ITS | Encounter Summary ---
Author Organization [facility] Address [address] [place] [address] Care Team Providers Care Tearoom Hostess Name Role Phone Devon Walton MD Primary Care Provider Encounter Details Date Type Department Care Team (Latest Contact Info) Description 04/30/2005 Outpatient Historical [facility] Cardiovascular Services [address] [place] [address] Megan Lewis MD [address] [facility] [address] [place] [address] DIZZINESS AND GIDDINESS (Primary Dx) Social History Tobacco Use Types Packs/Day Years Used Date Smoking Tobacco: Never Assessed Comments Unknown Sex and Gender Information Value Date Recorded Sex Assigned at Not on file Legal Sex Female 3:49 AM ACTUARIAL INTERN Gender Identity Not on file Sexual Orientation Not on file documented as of this encounter Plan of Treatment Not on file documented as of this encounter Visit Diagnoses Diagnosis Dizziness and giddiness- Primary documented in this encounter Care Teams Tearoom Hostess Relationship Specialty Start Date End Date Devon Walton MD [address] [place] [address] PCP - General 11/10/05 documented as of this encounter
--- OUTSIDE RECORDS SUMMARY | 2025-03-02 18:06 | XMS_ITS | Clinical Summary ---
Author Organization [facility] Address [address] [place] [address] Care Team Providers Care Emergency Preparedness Manager Name Role Phone Devon Walton MD Primary Care Provider Allergies Active Allergy Reactions Criticality Noted Date Comments Cosme Inhibitors Unknown 07/30/2015 Canagliflozin Urinary Retention Low 09/02/2016 Codeine Unknown 07/30/2015 Losartan Dizziness Low 09/02/2016 Meperidine Unknown 07/30/2015 Pentazocine Lactate Unknown 07/30/2015 Qrafjlv-Dqo-Rbe Reductase Inhibitors Unknown 07/30/2015 Unclassified Drug Unknown [...] unit CapsuleIndications:Type 2 diabetes mellitus with hyperglycemia ([facility]),Chronic congestive heart failure, unspecified congestive heart failure type ([facility]/HCC),Pure hypercholesterolemia Take by mouth 2 times daily. Active OTHERIndications:Type 2 diabetes mellitus with hyperglycemia ([facility]/HCC),Chronic congestive heart failure, unspecified congestive heart failure type ([facility]/HCC),Pure hypercholesterolemia Hydrocodone /apap 7.5/ 325 One every 4 hours . Active methotrexate (RHEUMATREX) 2.5 mg Tablet Take 2.5 mg by mouth every 7 days. 4 tablets weekly Active folic acid (FOLVITE) 1 mg tablet Take 1 mg by mouth daily. Active aspirin (WINSTON) 325 mg tabletIndications:Type 2 diabetes mellitus with hyperglycemia, without long-term current use of insulin ([facility]),Nontoxic multinodular goiter Take 325 mg by mouth daily. Active [employer] Delica Plus Lanc Dev Kit USE TO TEST BLOOD SUGARS DAILY 1 Each Active lancets (One Touch Delica) 33 gauge USE ONE LANCET DAILY 100 Each 6 020 Active blood sugar diagnostic (Helpstream[employer] Verio test strips) Strip USE ONE TEST STRIP DAILY 100 Strip 6 Active tofacitinib (Xeljanz) 5 mg Tablet Take 5 mg by mouth 2 times daily. Active metFORMIN (GLUCOPHAGE XR) 500 mg Extended Release 24 hour tabletIndications:Type 2 diabetes mellitus with hyperglycemia, without long-term current use of insulin ([facility]) TAKE 2 TABLETS BY MOUTH EVERY MORNING 180 Tablet 3 Active glimepiride (AMARYL) 4 mg tabletIndications:Type 2 diabetes mellitus with hyperglycemia, without long-term current use of insulin (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) LIPID PANEL Routine 11/05/2019 from Last 3 Months or Most Recently Relevant to Health Maintenance Results * (ABNORMAL) HEMOGLOBIN A1C (12/23/2020 12:48 PM CDT) HEMOGLOBIN A1C 7.5(H) See Comment % 12/23/2020 8:54 PM CDT [facility] EST. AVG GLUCOSE, A1C 169 mg/dL 12/23/2020 8:54 PM CDT [facility] Blood Venipuncture / Unknown 12/23/2020 12:48 PM CDT 12/23/2020 8:24 PM CDT Narrative [facility] - 12/23/2020 8:54 PM CDT HGB A1C INTERPRETATION NORMAL: <5.7% PRE-DIABETES: 5.7 - 6.4% DIABETES: 6.5% OR GREATER Falsely low A1C measurements can occur when: 1. Anemia and/or hemolytic anemia is present. 2. Hemoglobin variants present. 3. Renal failure. 4. Transfusion of blood product in the last 120 days. We recommend ordering a fructosamine test([id number]) to more accurately assess glycemic status if any of the above conditions are present. Luis Alberto Kapadia MD CHEMISTRY ORDERABLES Final Result [facility] CLIA# [id number] [place] [address] * LIPID PANEL (11/05/2019) Pathologist [facility] ABSTRACTED CHOLESTEROL 166 ABSTRACTED TRIGLYCERIDE 175 ABSTRACTED HDL 38 ABSTRACTED LDL CALCULATED 101 CHOLESTEROL TRIGLYCERIDE HDL LDL CALCULATED Blood 11/05/2019 Luis Alberto Kapadia MD CHEMISTRY ORDERABLES Final Result from Last 3 Months or Most Recently Relevant to Health Maintenance Insurance [id number] [place] [address] MEDICARE PART A AND B [facility] [place] [id number] Care Teams Emergency Preparedness Manager Relationship Specialty Start Date End Date Devon Walton MD [address] [place] [address] PCP - General 11/10/05
--- OUTSIDE RECORDS SUMMARY | 2025-03-02 18:06 | XMS_ITS | Encounter Summary ---
Author Organization [facility] Address [address] [place] [address] Care Team Providers Care New Car Make Ready Worker Name Role Phone Devon Walton MD Primary Care Provider [phone] Encounter Details Date Type Department Care Team (Late st Contact Info) Description 07/05/2005 Outpatient Historical [facility] Cardiology- [place] [address] [place] [address] Megan Lewis MD [address] [place] [address] PAROX ATRIAL TACHYCARDIA (Primary Dx); PREMATURE BEATS NEC; OBESITY NOS Social History Tobacco Use Types Packs/Day Years Used Date Smoking Tobacco: Never Assessed Comments Unknown Sex and Gender Information Value Date Recorded Sex Assigned at Not on file 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
--- OUTSIDE RECORDS SUMMARY | 2025-03-02 18:06 | XMS_ITS | Encounter Summary ---
Author Organization [facility] Address [address] [place] [address] Care Team Providers Care Contract Analyst Name Role Phone Devon Walton MD Primary Care Provider [phone] Encounter Details Date Type Department Care Team (Late st Contact Info) Description 11/10/2005 Outpatient Historical [facility] Megan Lewis MD [address] [facility] [address] [place] [address] Paroxysmal Supraventricular Tachycardia (Primary Dx) Social History Tobacco Use Types Packs/Day Years Used Date Smoking Tobacco: Never Assessed Comments Unknown Sex and Gender Information Value Date Recorded Sex Assigned at Not on file Legal Sex Female 3:49 AM ASSISTANT COMMUNITY MANAGER Gender Identity Not on file Sexual Orientation Not on file documented as of this encounter Plan of Treatment Not on file documented as of this encounter Procedures Procedure Name Priority Date/Time Associated Diagnosis Comments POC GLUCOSE Routine 11/11/2005 6:05 AM ASSISTANT COMMUNITY MANAGER PT AND APTT Routine 11/10/2005 6:05 AM ASSISTANT COMMUNITY MANAGER BASIC METABOLIC PANEL Routine 11/10/2005 6:05 AM ASSISTANT COMMUNITY MANAGER documented in this encounter Results * (ABNORMAL) POC GLUCOSE (11/11/2005 6:05 AM ASSISTANT COMMUNITY MANAGER) GLUCOSE POC 146(H) 60 - 100 mg/dL INTERFACE SYSTEM 11/11/2005 6:05 AM ASSISTANT COMMUNITY MANAGER Historical Provider POINT OF CARE TESTING Final Result Performing Organization Address [facility] de Phone Number INTERFACE SYSTEM Refer to clinic/hospital department * (ABNORMAL) PT AND APTT (11/10/2005 6:05 AM ASSISTANT COMMUNITY MANAGER) PROTIME 12.9 12.6 - 14.9 Secs INTERFACE SYSTEM Comment: As of 05 note change in normal range. INR 0.9 INTERFACE SYSTEM Comment: Expected Values for INR: DVT/PE Goal INR 2.5; range 2.0 - 3.0 Valve Replacement Tissue Goal INR 2.5; range 2.0 - 3.0 Mechanical Goal INR 3.0; range 2.5 - 3.5 POST-AK Goal INR 2.5; range 2.0 - 3.0 [...] in APTT Normal Range. 11/10/2005 6:05 AM ASSISTANT COMMUNITY MANAGER Historical Provider HEMATOLOGY ORDERABLES Final Result Performing Organization Address [facility] Phone Number INTERFACE SYSTEM Refer to clinic/hospital department * BASIC METABOLIC PANEL (11/10/2005 6:05 AM ASSISTANT COMMUNITY MANAGER) GLUCOSE 89 70 - 110 mg/dL INTERFACE [...] 10.5 mg/dL INTERFACE SYSTEM 11/10/2005 6:05 AM ASSISTANT COMMUNITY MANAGER us Historical Provider CHEMISTRY ORDERABLES Final R esult INTERFACE SYSTEM Refer to clinic/hospital department documented in this encounter Visit Diagnoses Diagnosis Paroxysmal supraventricular tachycardia- Primary documented in this encounter Care Teams Contract Analyst Relationship Specialty Start Date End Date Devon Walton MD [address] [place] [address] PCP - General 11/10/05 documented as of this encounter
--- OUTSIDE RECORDS SUMMARY | 2025-03-02 18:06 | XMS_ITS | Clinical Summary ---
Author Organization [facility] Address [address] [place] [address] Care Team Providers Care Locomotive Firer/Fireman Name Role Phone Devon Walton MD Primary Care Provider Allergies Active Allergy Reactions Criticality Noted Date Comments Cosme Inhibitors Unknown 07/30/2015 Bimatoprost Headache Low 03/24/2022 Brimonidine Headache Low 03/24/2022 Canagliflozin Urinary Retention Low 09/02/2016 Codeine Unknown 07/30/2015 Exenatide Constipation High 03/24/2022 Losartan Dizziness Low 09/02/2016 Meperidine Unknown 07/30/2015 Pentazocine Lactate Unknown 07/30/2015 Swhppxk-Eoh-Jws Reductase Inhibitors Unknown 07/30/2015 Unclassified Drug Unknown 07/30/2015 Beta blockers Medications glimepiride (AMARYL) 4 mg tabletIndications:Type 2 diabetes mellitus with hyperglycemia, without long-term current use of insulin ([facility]) TAKE 1 TABLET BY MOUTH TWO TIMES DAILY 180 Tablet 3 020 Active Lancing Device with Lancets (NiteTablesTouch Delica Plus Lanc Dev) Kit USE TO [...] hyperglycemia, without long-term current use of insulin ([facility]) Take 1 Tablet (10 mg) by mouth [...] hyperglycemia, without long-term current use of insulin ([facility]) take 2 tablets by mouth every morning [...] Data STL ABSTRACTION Provider, Abstract 02/15/2025 Telephone [place] [address] [place] [phone] Megan Lewis MD Question 02/14/2025 8:00 AM CDT Procedure visit [place] [address] [place] [phone] Megan Lewis MD SSS (sick sinus syndrome) (CMS/HCC) (Primary Dx) 02/04/2025 Telephone [place] [address] [place] [phone] Megan Lewis MD Question 01/31/2025 1:15 PM CDT Procedure visit [place] [address] [place] [phone] Megan Lewis MD SSS (sick sinus syndrome) (CMS/HCC) (Primary Dx); Cardiac pacemaker in situ 01/15/2025 Telephone [place] [address] [place] [phone] Megan Lewis MD Appointment Notification 01/15/2025 Telephone [facility] [address] [place] [phone] Megan Lewis MD Appointment Notification 01/08/2025 External Device Data STL ABSTRACTION Provider, Abstract 01/04/2025 Refill [facility] [address] [place] [phone] Lion Garzon MD 12/25/2024 External Device Data STL ABSTRACTION Provider, Abstract 12/25/2024 External Device Data STL ABSTRACTION Provider, Abstract 12/14/2024 Telephone [facility] [address] [place] [address] Megan Lewis MD Low Oxygen [...] on file Legal Sex Female 5:53 AM GARAGE ATTENDANT Gender Identity Not on file Sexual Orientation Not on file Last Filed Vital Signs Vital Sign Reading Time Taken Comments Blood Pressure 150/58 09/15/2024 11:22 AM GARAGE ATTENDANT Pulse 60 09/15/2024 11:22 AM GARAGE ATTENDANT Temperature 36.1 C (97 F) 09/15/2024 11:22 AM GARAGE ATTENDANT Respiratory Rate 18 09/15/2024 5:01 AM GARAGE ATTENDANT Oxygen Saturation 96% 09/15/2024 11:22 AM GARAGE ATTENDANT Inhaled Oxygen Concentration - - Weight 74.9 kg (165 lb 1 oz) 09/15/2024 5:01 AM GARAGE ATTENDANT Height 157.5 cm (5' 2 ) 09/13/2024 6:00 PM GARAGE ATTENDANT Body Mass Index 30.19 09/13/2024 6:00 PM GARAGE ATTENDANT Plan of Treatment Upcoming Encounters Date Type Department Care Team (Late st Contact Info) Description 03/14/2025 1:30 PM CDT Procedure visit [facility] [address] [place] [phone] Megan Lewis MD [address] [place] [phone] 05/21/2025 11:40 AM CDT Office Visit [facility] [address] [place] [address] Megan Lewis MD [address] [place] [phone] Earl Betancourt CRNP [address], [address] [place] [phone] Health Maintenance Due Date Last Done [...] 10/23/2019, 2015 Medical Devices Implanted Type Area Pusher Operator Device Identifier Shelf Expiration Date Model / Serial / Lot Lead Pacing Capsure Fix Novus 45cm [id number] - Csc - [id number] Implanted:Qty: 1 on 09/14/2024 by Megan Lewis MD at [facility] Lead Left: Chest Wall [employer]- CRM - BULK BUY [id number] 07/18/2026 5076-45 / [id number] 5V / Lead Capsurefix Novus Mri 52cm Endocardial Pacing 5076-52 - [id number] Implanted:Qty: 1 on 09/14/2024 by Megan Lewis MD at [facility] Lead Left: Chest Wall [employer]- CRM - BULK BUY [id number] 06/28/2026 5076-52 / [id number] 2V / Pacemaker Landen Xt Dr Mri Ipg Dual Chmbr Surescan [id number] - [id number] Implanted:Qty: 1 on 09/14/2024 by Megan Lewis MD at [facility] Pacemaker Left: Chest Wall [employer]- CRM - BULK BUY [id number] 01/30/2026 [id number] / [id number] 3G / Description:VT monitor rate 162 bpm Procedures Procedure Name Priority Date/Time Associated Diagnosis Comments SC REM INTERROG PM/LDLS PM/IDS <90 D TECH REVIEW Routine 02/14/2025 5:25 AM CDT SSS (sick sinus syndrome) (CMS/HCC) SC REM INTERROG PM/LDLS PM <90 D PHYS/QHP Routine 02/14/2025 5:25 AM CDT SSS (sick sinus syndrome) (CMS/HCC) SC PROGRAM EVAL IMPLANTABLE IN PERSN DUAL LD PACER Routine 01/31/2025 1:39 PM CDT SSS (sick sinus syndrome) ([facility]) Cardiac pacemaker in situ MICROALBUMIN/CREATIN INE RATIO, RANDOM UR Routine 08/01/2023 9:30 AM GARAGE ATTENDANT Type 2 diabetes mellitus with hyperglycemia, without long-term current use of insulin ([facility]) LIPID PANEL Routine 08/01/2023 9:22 AM GARAGE ATTENDANT Type 2 diabetes mellitus with hyperglycemia, without long-term current use of insulin ([facility]) HEMOGLOBIN A1C Routine 08/01/2023 9:22 AM GARAGE ATTENDANT Type 2 diabetes mellitus with hyperglycemia, without long-term current use of insulin ([facility]) from Last 3 Months or Most Recently Relevant to Health Maintenance Results * SC REM INTERROG PM/LDLS PM <90 D PHYS/QHP, SC REM INTERROG PM/LDLS PM/IDS <90 D TECH [...] INTERFACE SYSTEM Refer to clinic/hospital department * SC PROGRAM EVAL IMPLANTABLE IN PERSN DUAL LD [...] MICROALBUMIN/CREATININE RATIO, RANDOM UR (08/01/2023 9:30 AM GARAGE ATTENDANT) Creatinine, Urine 12(L) 20 - 275 mg/dL [facility] MICROALBUMIN, URINE 5.7 See Note: mg/dL [facility] Comment: Reference Range: Reference Range Not established MICROALBUMIN/CREAT RATIO, UR 475(H) <30 mcg/mg creat [facility] Comment: The ADA defines abnormalities in albumin excretion as follows: Albuminuria Category Result (mcg/mg creatinine) Normal to Mildly increased <30 Moderately increased 30-299 Severely increased > OR = 300 The ADA recommends that at least two of three specimens collected within a 3-6 month period be abnormal before considering a patient to be within a diagnostic category. Test Performed at: [facility] [place] [address] Marilynn Pisano MD Urine URINE SPECIMEN OBTAINED BY CLEAN CATCH PROCEDURE / Unknown 08/01/2023 9:30 AM GARAGE ATTENDANT 08/02/2023 8:04 AM GARAGE ATTENDANT Lion Garzon MD URINE ORDERABLES Final Result [facility] [phone] [address] [address] [place] [address] * (ABNORMAL) HEMOGLOBIN A1C (08/01/2023 9:22 AM GARAGE ATTENDANT) HEMOGLOBIN A1C 7.6(H) <5.7 % of total Hgb [facility] Comment: For someone without known diabetes, [...] ESTIMATED AVERAGE GLUCOSE (MG/DL) 171 mg/dL [facility] ESTIMATED AVERAGE GLUCOSE (MMOL/L) 9.5 mmol/L [facility] Comment: Test Performed at: [place] [address] Marilynn Pisano MD Blood 08/01/2023 9:22 AM GARAGE ATTENDANT 08/02/2023 5:55 AM GARAGE ATTENDANT Lion Garzon MD CHEMISTRY ORDERABLES F inal Result [facility] [phone] [facility] [address] [facility] [place] [address] * (ABNORMAL) LIPID PANEL (08/01/2023 9:22 AM GARAGE ATTENDANT) CHOLESTEROL 232(H) <200 mg/dL [facility] [...] LDL-C. Guerrero ZULUAGA et al. DICK. 2013;310(19): 5895-1713 (http://education.Wikets.Carweez/faq/JZL255) CHOL/HDL RATIO 4.8 <5.0 (calc) [facility] TOTAL NON-HDL CHOL(LDL+VLDL) 184(H) <130 mg/dL (calc) [facility] Comment: For patients with diabetes plus 1 major ASCVD risk factor, treating to a non-HDL-C goal of <100 mg/dL (LDL-C of <70 mg/dL) is considered a therapeutic option. Test Performed at: [facility] [address] [place] [address] Marilynn Pisano MD Blood 08/01/2023 9:22 AM GARAGE ATTENDANT 08/02/2023 5:56 AM GARAGE ATTENDANT Lion Garzon MD CHEMISTRY ORDERABLES F inal Result [facility] [phone] [facility] [address] [address], [place] [address] from Last 3 Months or Most Recently Relevant to Health Maintenance Insurance [facility] [id number] RX [employer] RX Member Subscriber Plan / Payer (Ef fective 2021-Present) Name:Chela Rodriguez Relation to Subscriber:Self Name:Chela Rodriguez Payer ID:Not on file Group ID:[id number] Type:RX Medicare Part D Address: [address] Advance Directives For more information, please contact: [phone] Documents on File Type Date Recorded Patient Cissp Expl anation Advance Directive Living Will 09/06/2018 12:04 PM Advance Directive Living Will * Full Code (Latest Code Status on File) Date Activated Date Inactivated Comments 09/14/2024 4:52 PM 09/15/2024 3:20 PM * Full Code Date Activated Date Inactivated Comments 09/13/2024 7:22 PM 09/14/2024 4:52 PM Care Teams Locomotive Firer/Fireman Relationship Specialty Start Date End Date Devon Walton MD [address] [place] [phone] PCP - General 11/10/05
--- OUTSIDE RECORDS SUMMARY | 2025-03-02 18:06 | XMS_ITS | Encounter Summary ---
Author Organization [facility] Address [address] [place] [address] Care Team Providers Care Instructional Support Technician Name Role Phone Devon Walton MD Primary Care Provider Encounter Details Date Type Department Care Team (Latest Contact Info) Description 05/02/2006 Outpatient Historical [facility] Cardiology- [place] [address] [place] [phone] Nena Granado, [place] [address] [place] [phone] Paroxysmal Supraventricular Tachycardia (Primary Dx); Other Premature Beats; Palpitations Social History Tobacco Use Types Packs/Day Years Used Date Smoking Tobacco: Never Assessed Comments Unknown Sex and Gender Information Value Date Recorded Sex Assigned at Not on file Legal Sex Female 3:49 AM INSURANCE ADVISER Gender Identity Not on file Sexual Orientation Not on file documented as of this encounter Plan of Treatment Not on file documented as of this encounter Visit Diagnoses Diagnosis Paroxysmal supraventricular tachycardia- Primary Other premature beats Palpitations documented in this encounter Care Teams Instructional Support Technician Relationship Specialty Start Date End Date Devon Walton MD [address] [place] [address] PCP - General 11/10/05 documented as of this encounter
--- OUTSIDE RECORDS SUMMARY | 2025-03-02 18:06 | XMS_ITS | Encounter Summary ---
Author Organization [facility] Address [address] [place] [address] Care Team Providers Care Tomato Paste Maker Name Role Phone Devon Walton MD Primary Care Provider Encounter Details Date Type Department Care Team (Late st Contact Info) Description 07/22/2006 Outpatient Historical [facility] Megan Lewis MD [address] [facility] [place] [address] Paroxysmal Supraventricular Tachycardia (Primary Dx) Social History Tobacco Use Types Packs/Day Years Used Date Smoking Tobacco: Never Assessed Comments Unknown Sex and Gender Information Value Date Recorded Sex Assigned at Not on file Legal Sex Female 3:49 AM OIL AGENT Gender Identity Not on file Sexual Orientation Not on file documented as of this encounter Plan of Treatment Not on file documented as of this encounter Procedures Procedure Name Priority Date/Time Associated Diagnosis Comments POC GLUCOSE Routine 07/23/2006 5:46 AM OIL AGENT POC GLUCOSE Routine 07/22/2006 9:48 AM OIL AGENT PT AND APTT Routine 07/22/2006 6:19 AM OIL AGENT CBC WITHOUT DIFFERENTIAL Routine 07/22/2006 6:19 AM OIL AGENT BASIC METABOLIC PANEL Routine 07/22/2006 6:19 AM OIL AGENT documented in this encounter Results * (ABNORMAL) POC GLUCOSE (07/23/2006 5:46 AM OIL AGENT) GLUCOSE POC 134(H) 60 - 100 mg/dL INTERFACE SYSTEM 07/23/2006 5:46 AM OIL AGENT Megan Lewis MD POINT OF CARE TESTING Final R esult Performing Organization Address City/[facility] Co de Phone Number INTERFACE SYSTEM Refer to clinic/hospital department * (ABNORMAL) POC GLUCOSE (07/22/2006 9:48 AM OIL AGENT) GLUCOSE POC 139(H) 60 - 100 mg/dL INTERFACE SYSTEM 07/22/2006 9:48 AM OIL AGENT Megan Lewis MD POINT OF CARE TESTING Final R esult Performing Organization Address [email or web address]] de Phone Number INTERFACE SYSTEM Refer to clinic/hospital department * (ABNORMAL) CBC WITHOUT DIFFERENTIAL (07/22/2006 6:19 AM OIL AGENT) Pathologist [facility] WBC 7.1 4.8 - [...] 0.2 K/ul INTERFACE SYSTEM 07/22/2006 6:19 AM OIL AGENT Megan Lewis MD HEMATOLOGY ORDERABLES Final R esult Performing Organization Address [facility] Phone Number INTERFACE SYSTEM Refer to clinic/hospital department * (ABNORMAL) PT AND APTT (07/22/2006 6:19 AM OIL AGENT) PROTIME 13.5 13.0 - 15.7 Secs INTERFACE SYSTEM Comment: As of 06 note change in normal range. INR 0.9 INTERFACE SYSTEM Comment: Expected Values for INR: DVT/PE Goal INR 2.5; range 2.0 - 3.0 Valve Replacement Tissue Goal INR 2.5; range 2.0 - 3.0 Mechanical Goal INR 3.0; range 2.5 - 3.5 POST-AR Goal INR 2.5; range 2.0 - 3.0 [...] in APTT Normal Range. 07/22/2006 6:19 AM OIL AGENT Megan Lewis MD HEMATOLOGY ORDERABLES Final R esult Performing Organization Address [facility] Phone Number INTERFACE SYSTEM Refer to clinic/hospital department * (ABNORMAL) BASIC METABOLIC PANEL (07/22/2006 6:19 AM OIL AGENT) GLUCOSE 152(H) 70 - 110 mg/dL INTERFACE [...] 10.5 mg/dL INTERFACE SYSTEM 07/22/2006 6:19 AM OIL AGENT us Megan Lewis MD CHEMISTRY ORDERABLES Final Re sult INTERFACE SYSTEM Refer to clinic/hospital department documented in this encounter Visit Diagnoses Diagnosis Paroxysmal supraventricular tachycardia- Primary documented in this encounter Care Teams Tomato Paste Maker Relationship Specialty Start Date End Date Devon Walton MD [address] [place] [address] PCP - General 11/10/05 documented as of this encounter
--- OUTSIDE RECORDS SUMMARY | 2025-03-02 18:06 | XMS_ITS | Encounter Summary ---
Author Organization [facility] Address [address] [place] [address] Care Team Providers Care Charge Lpn Name Role Phone Devon Walton MD Primary Care Provider [phone] Encounter Details Date Type Department Care Team (Late st Contact Info) Description 05/31/2005 Outpatient Historical [facility] Cardiology- [place] [address] [place] [address] Megan Lewis MD [address] [place] [address] Sinoatrial node dysfunct (Primary Dx); PAROX ATRIAL TACHYCARDIA; PREMATURE BEATS NEC; OBESITY NOS Social History Tobacco Use Types Packs/Day Years Used Date Smoking Tobacco: Never Assessed Comments Unknown Sex and Gender Information Value Date Recorded Sex Assigned at Not on file Legal Sex Female 3:49 AM HVAC 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
--- OUTSIDE RECORDS SUMMARY | 2025-03-02 18:07 | XMS_ITS | Encounter Summary ---
Author Organization [facility] Address [address] [place] [address] Care Team Providers Care Handwriting Expert Name Role Phone Devon Wlaton MD Primary Care Provider Reason for Visit * Reason Onset Date Comments Running Late For Appt This Morning 10/11/2024 Encounter Details Date Type Department Care Team (Late st Contact Info) Description 10/11/2024 Telephone [facility] [address] [facility] [address] [place] [phone] Megan Lewis MD [address] [facility] [address] [place] [phone] Running Late For Appt This Morning [...] on file Legal Sex Female 5:53 AM CARTON STAPLER Gender Identity Not on file Sexual Orientation Not on file documented as of this encounter Miscellaneous Notes * Telephone Encounter - Debra Perez - 10/11/2024 9:13 AM CST Joshua Caller: Chela - [phone] Message: caller is in [place] now (9:11AM) and is on her way to her appt. Advised that she would likely need to reschedule. Patient is asking to be seen due to driving two hours already. ON STAPLER documented in this encounter Plan of Treatment Upcoming Encounters Date Type Department Care Team (Late st Contact Info) Description 03/14/2025 1:30 PM CDT Procedure visit [facility] [address] [place] [phone] Megan Lewis MD [address] [place] [phone] 05/21/2025 11:40 AM CDT Office Visit [facility] [address] [place] [phone] Megan Lewis MD [address] [place] [phone] Earl Betancourt CRNP [address], [address] [place] [phone] documented as of this encounter Visit Diagnoses Not on filedocumented in this encounter Care Teams Handwriting Expert Relationship Specialty Start Date End Date Devon Walton MD [address] [place] [phone] PCP - General 11/10/05 documented as of this encounter
--- OUTSIDE RECORDS SUMMARY | 2025-03-02 18:07 | XMS_ITS | Patient Health Record ---
Author Organization [facility] Address [address] [place], [place] [id number] Care Team Providers Care Oncology Patient Navigator Name Role Phone Devon Walton MD Primary Care Provider Unavail able Keyshawn KHAN, Geovani Unavailable [phone] Emilee Riggs Unavailable [phone] Allergies Allergen (clinical drug ingredient) Drug/Non Drug [...] W/U Status Risk Notes Problem Postherpetic neuralgia (8190287) Postherpetic neuralgia (053.19) Active confirmed Problem Thoracic radiculitis (1023275) Thoracic radiculitis NOS (724.4) Active confirmed Problem Spasm (83756903) Muscle spasm (728.85) Active confirmed Problem Hypersomnia (84930562) Hypersomnia (780.54) Active confirmed Problem Sleep dysfunction with sleep stage disturbance (008237342) Dysfunctions associated with sleep stages or arousal from sleep (780.56) Active confirmed Problem Pain in thoracic spine (045371408) Thoracic pain (724.1) Active confirmed Problem Long-term drug therapy (082929174) LONG-TERM USE MEDS NEC (V58.69) Active confirmed R/O substance abuse Problem Anxiety state (188200606) Anxiety State, other, specified: procedure related (300.09) Active confirmed Problem Displacement of thoracic intervertebral disc without myelopathy (32341343) 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) Active confirmed Problem Thoracic spinal stenosis (62977992) Thoracic spinal stenosis (724.01) Active confirmed Problem Thoracic spondylosis without myelopathy (226828316) Thoracic spondylosis without myelopathy (721.2) Active confirmed Problem Obstructive sleep apnea syndrome (80128997) Sleep apnea, obstructive (327.23) Active confirmed Problem Solitary sacroiliitis (412279124) Sacroiliitis, not elsewhere classified (M46.1) Active confirmed Problem Low back pain (683546305) Low back pain (M54.5) Active confirmed Problem Lumbosacral spondylosis without myelopathy (96164383) Spondylosis without myelopathy or radiculopathy, lumbar region (M47.816) Active confirmed Problem High risk drug monitoring status (878299637) terminologist (current) use of opiate analgesic (Z79.891) Active confirmed Problem Anxiety disorder (978785109) Other specified anxiety disorders (F41.8) Active confirmed Problem Obstructive sleep apnea syndrome (74898046) Obstructive sleep apnea (adult) (pediatric) (G47.33) Active confirmed Problem Chronic pain (53954715) Other chronic pain (G89.29) Active confirmed Problem Acquired spondylolisthesis (279422023) Spondylolisthesi s, lumbar region (M43.16) Active confirmed Problem Thoracic spondylosis without myelopathy (112490666) Spondylosis without myelopathy or radiculopathy, thoracic region (M47.814) Active confirmed Problem Spinal stenosis of thoracic region (14842950) Spinal stenosis, thoracic region (M48.04) Active confirmed Problem Spinal stenosis of lumbar region (75708986) Spinal stenosis, lumbar region (M48.06) Active confirmed Problem Thoracic radiculopathy (69077988) Intervertebral disc disorders with radiculopathy, thoracic region (M51.14) Active confirmed Problem Radiculopathy due to lumbar intervertebral disc disorder (555599510176039) Intervertebral disc disorders with radiculopathy, lumbar region (M51.16) Active confirmed Problem Thoracic radiculopathy (61526632) Radiculopathy, thoracic region (M54.14) Active confirmed Problem Pain in thoracic spine (402437753) Pain in thoracic spine (M54.6) Active confirmed Problem Myalgia (12035859) Myalgia (M79.1) Active confi rmed Problem Neurogenic claudication (000409476) Spinal stenosis, lumbar region with neurogenic claudication (M48.062) Active confirmed Problem Myalgia (30229308) Myalgia of auxiliary muscles, head and neck (M79.12) Active confirmed Problem Low back pain (719545745) Low back pain, unspecified (M54.50) Active confirmed Problem Pain in lumbar spine (624147261) Vertebrogenic low back pain (M54.51) Active confirmed Vital Signs Temperature 97.8 degrees Fahrenheit 12/11/2024 Oximetry 90 % 12/11/2024 Blood pressure diastolic 60 mm Hg 12/11/2024 Height 60 in 12/11/2024 Blood pressure systolic 135 mm Hg 12/11/2024 Weight 173.4 lbs 12/11/2024 BMI 33.86 kg/m2 12/11/2024 Encounters Encounter Location Date Provider Diagnosis [facility] [address] [place], [place] [id number] 04/05/2024 Emilee Holliday Vertebrogenic low ba ck pain M54.51 ; Other chronic pain G89.29 and Obstructive sleep apnea (adult) (pediatric) G47.33 [facility] [address] [place], [place] [id number] 06/19/2024 Geovani Mahajan Vertebrogenic low ba ck pain M54.51 ; Other chronic pain G89.29 ; Obstructive sleep apnea (adult) (pediatric) G47.33 and terminologist (current) use of opiate analgesic Z79.891 [facility] [address] [place], [place] [id number] 08/14/2024 Geovani Mahajan Vertebrogenic low ba ck pain M54.51 ; Other chronic pain G89.29 and Obstructive sleep apnea (adult) (pediatric) G47.33 [facility] [address] [place], [place] [id number] 10/09/2024 Geovani Mahajan Vertebrogenic low ba ck pain M54.51 ; Other chronic pain G89.29 and Obstructive sleep apnea (adult) (pediatric) G47.33 [facility] [address] [place], [place] [id number] 12/11/2024 Geovani Mahajan Vertebrogenic low ba ck pain M54.51 ; Other chronic pain G89.29 and Obstructive sleep apnea (adult) (pediatric) G47.33 Assessments Encounter Date Diagnosis (ICD Code) Assessment Notes Treatment Notes Treatment Clinical Notes Section Notes 12/11/2024 Vertebrogenic low back pain (ICD-10 - M54.51) Chronic axial lumbosacral spine pain. 08/14/2024 Other chronic pain (ICD-10 - G89.29) Patient reports that taking her pain medication allows her to prepare for the holiday season. Plan to continue oral opioid medication management. 08/14/2024 Vertebrogenic low back pain (ICD-10 - M54.51) Chronic axial lumbosacral spine pain. 06/19/2024 Other chronic pain (ICD-10 - G89.29) Patient reports that taking her pain medication allows her to begin going through belongings in preparation for move to [place] around the first of the year. Plan to continue oral opioid medication [...] pain medication allows her to travel to [place] for her many medical appointments. Plan to continue oral opioid medication management. 12/11/2024 Other chronic pain (ICD-10 - G89.29) [...] in relation to sleep for safety concerns. 08/14/2024 Obstructive sleep apnea (adult) (pediatric) (ICD-10 - G47.33) Patient with history of untreated sleep apnea. Patient declined prior offer for a repeat sleep study and possible treatment. Plan to continue to restrict opioid use in relation to sleep for safety concerns. 12/11/2024 Obstructive sleep apnea (adult) (pediatric) (ICD-10 - G47.33) Plan to continue to restrict opioid use in relation to sleep for safety concerns. 06/19/2024 senior living (current) use of opiate analgesic (ICD-10 - Z79.891) 2022 opioid (OUD) risk tool score = 2. This places the patient in the low risk category. Plan urine toxicology screen today to monitor for presence of any unprescribed or illicit controlled substance(s), as well as prescribed hydrocodone. 10/09/2024 Obstructive sleep apnea (adult) (pediatric) (ICD-10 [...] clinic is closing due to Dr. Mahajan's residential; see scanned document. Terminal prescriptions were given to the patient along with tapering instructions. 04/05/2024 Other Plan Of Treatment No Information Insurance Providers Payer Name Payer Address Payer Phone Subscriber Number Group Number Insured Name Patient Relationship to Insured Coverage Start Date Coverage End Date [employer]AGE [address] [address] [place] [phone] [id number] Chela Rodriguez Self - patient is the [...] 10/2021 Placement of cardiac stent, performed at [facility] in [place], [place], 09/2023 Placement of pacemaker, performed at [facility] in [place], [place], 09/2024 Hospitalization History Reason Date(Month/Year) Chest pain, fluid build up, treated at [facility] , 03/2024 Cardiac work up, 12/2012 [place], 2008
--- OUTSIDE RECORDS SUMMARY | 2025-03-02 18:07 | XMS_ITS | Encounter Summary ---
Author Organization [facility] Address [address] [place] [address] Care Team Providers Care Broker Agricultural Produce Name Role Phone Devon Walton MD Primary Care Provider Reason for Visit * Reason Onset Date Comments Appointment Notification 01/15/2025 Encounter Details Date Type Department Care Team (Late st Contact Info) Description 01/15/2025 Telephone [facility] [address] [facility] [address] [place] [phone] Megan Lewis MD [address] [facility] [address] [place] [phone] Appointment Notification Social History Tobacco Use [...] on file Legal 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 Andra Zaidi, [facility], [facility] [employer] documented in this encounter Plan of Treatment Upcoming Encounters Date Type Department Care Team (Late st Contact Info) Description 03/14/2025 1:30 PM CDT Procedure visit [facility] [address] [place] [phone] Megan Lewis MD [address] [place] [phone] 05/21/2025 11:40 AM CDT Office Visit [facility] [address] [place] [phone] Megan Lewis MD [address] [place] [phone] Earl Betancourt CRNP [address], [address] [place] [phone] documented as of this encounter Visit Diagnoses Not on filedocumented in this encounter Care Teams Broker Agricultural Produce Relationship Specialty Start Date End Date Devon Walton MD [address] [place] [phone] PCP - General 11/10/05 documented as of this encounter
--- NOTE | 2025-03-02 18:30 | XRR_ITS ---
PROCEDURE INFORMATION: Exam: XR Chest Exam date and time: 03/02/2025 6:43 PM Age: 79 years old Clinical indication: Prior surgery; Surgery date: 6+ months; Surgery type: Pacemaker; Weakness; AMS TECHNIQUE: Imaging protocol: Radiologic exam of the chest. Views: 1 view. COMPARISON: CR (CHEST, ) 02/27/2025 3:54 AM FINDINGS: Tubes, catheters and devices: Cardiac pacemaker device overlying the left chest wall. Lungs: No lobar consolidation. Pleural spaces: No sizable pleural effusion or pneumothorax. Heart/Mediastinum: Cardiomegaly. Bones/joints: Unremarkable. Other findings: Similar right hilar opacity. XR/XR chest 1V portable [id number] IMPRESSION: As above.
--- NOTE | 2025-03-02 18:30 | CTR_ITS ---
PROCEDURE INFORMATION: Exam: CT Head Without Contrast Exam date and time: 03/02/2025 7:03 PM Age: 79 years old Clinical indication: Other: General weakness TECHNIQUE: Imaging protocol: Computed tomography of the head without contrast. Radiation optimization: All CT scans at this facility use at least one of these dose optimization techniques: automated exposure control; mA and/or kV adjustment per patient size (includes targeted exams where dose is matched to clinical indication); or iterative reconstruction. COMPARISON: MR head wo con* [id number] 03/27/2018 9:09 AM RADIATION DOSE METRICS: Total DLP (mGy-cm): 1120.28 FINDINGS: Brain: Age-related brain parenchymal atrophy. Areas of hypoattenuation in the periventricular and subcortical deep white matter likely on the basis of chronic microvascular ischemic changes. No acute intra cranial hemorrhage. No mass effect or midline shift. No definitive CT evidence of acute territorial infarction. Cerebral ventricles: No ventriculomegaly. Paranasal sinuses: Visualized sinuses are unremarkable. No fluid levels. Mastoid air cells: Visualized mastoid air cells are well aerated. Bones: Intact calvarium. Soft tissues: Unremarkable. CT/CT head wo con* [id number] IMPRESSION: No acute intracranial abnormality. Senescent changes.
--- NOTE | 2025-03-02 18:32 | W.ED.WEAKNES ---
HPI - Weakness General: Chief complaint: Weakness Stated complaint: ams Time Seen by Provider: 03/02/25 18:20 History of Present Illness: 79-year-old female who has been generally weak, worsening over the last 24 to 48 hours. She was seen 3 days ago with chest pressure. She states her chest pressure is better, she has urinated quite often, and lost some water weight she says. She states that her muscles are jerky. When trying to hold up a glass of water, it is hard to control jerking type movements she says. She has been incredibly tired and sleepy today as well. She is not short of breath. She does not have a headache. No visual changes. PFS ED PFSH: Medical History Diabetes type 2, uncontrolled Congestive heart failure Paroxysmal atrial fibrillation with RVR Obstructive sleep apnea Diabetes mellitus type 2, controlled Diverticulosis Mesenteric ischemia Hepatomegaly Sleep related hypoxia Coronary artery disease Latent tuberculosis Completed treatment in 2020 Shingles Immunization counseling Latent tuberculosis by blood test Tenosynovitis of ankle Psoriatic arthritis High risk medication use Peroneal tendinitis of both lower legs Osteoarthritis Rotator cuff arthropathy of right shoulder Psoriasis Surgical History History of eye surgery Removal of scar tissue History of tonsillectomy History of appendectomy History of tubal ligation History of cholecystectomy H/O: hysterectomy Family History Mother Diabetes Hypertension Heart disease Brother Hypertension Sister Hypertension Grandmother Stroke Other Cancer Social History (Updated 03/02/25 @ 23:06 by Harinder Julian MD) Smoking and tobacco/nicotine status: never used tobacco/nicotine Alcohol intake: never Substance/Drug Use: never Additional social history: 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 she wants full CODE STATUS Previous occupational history: 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 and 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 Physical Exam Const: GENERAL APPEARANCE: cooperative, lethargic and frail appearing ORIENTATION/CONSCIOUSNESS: Yes lethargic HENMT: COMMON NORMALS: normocephalic, atraumatic and Normal external nose present HEAD & SCALP: normocephalic and atraumatic FACE & SINUS: face symmetric NOSE: Normal external nose present Eye: COMMON NORMALS: Equal, round and reactive pupils present and EOMs intact bilaterally PUPIL: Yes Equal, round and reactive pupils present Chest: CHEST: Yes Symmetrical chest wall rise Resp: COMMON NORMALS: normal respiratory effort, No use of accessory muscles and clear to auscultation bilaterally AUSCULTATION: clear to auscultation bilaterally Cardio: COMMON NORMALS: regular rate and regular rhythm RATE: regular rate RHYTHM: regular rhythm Neuro: SENSORIUM/ORIENTATION: Yes lethargic Course Vital Signs: Vital signs: Vital Signs Temperature 99.2 F 03/02/25 23:36 Pulse Rate 78 03/02/25 23:36 Respiratory Rate 17 03/02/25 23:36 Blood Pressure 155/80 03/02/25 23:36 Pulse Oximetry 94 03/02/25 23:50 Oxygen Delivery Me thod Nasal Cannula 03/02/25 23:50 Oxygen Flow Rate 1 03/02/25 23:50 MDM - Weakness Medical Decision Making Patient is mildly hypertensive. Temperature is 99.3 other vitals are stable on room air. Temperatures come down. Patient is now significantly tachycardic. Heart rate up to 125 130. She is hypoxic as well. She is on 2 L now satting 93%. She is very short of breath when lying down still mildly hypertensive. White blood cell count is 15. Lactic Reyes is elevated initially at 3.1. Because of this, small bolus of fluid is given to try to resolve tachycardia, etc. Blood cultures are drawn. She is given Zosyn 4.5 g. Hemoglobin is stable at 8.6. Creatinine is stable at 1.3. BUN slightly elevated at 49. Blood gas shows a pH of 7.46PCO2 of 47, and PO2 of 45. This is on room air. Repeat lactic acid is decreased. Troponin did not elevated 2 hours. X-ray shows no acute infiltrates. Head CT is nonacute. Family had requested a right foot x-ray given a toe injury that happened previously. She does have a Fourth toe proximal phalanx fracture. This is joelle taped, and will remain so. Concern over continued hypoxia. CTA ordered. Is negative for acute change. Patient still having significant mental status changes with hypoxia. Will admit for hypoxic respiratory failure. Lab Data 03/03/25 00:39 03/03/25 00:39 Radiology Impressions Chest X-Ray 03/02/25 18:30 IMPRESSION: As above. Head CT 03/02/25 18:30 IMPRESSION: No acute intracranial abnormality. Senescent changes. Foot X-Ray 03/02/25 19:32 IMPRESSION: As above Chest CTA 03/02/25 21:05 IMPRESSION: 1. No pulmonary embolism. Prominence of the main pulmonary artery which can be seen in the setting of pulmonary hypertension. 2. Cardiomegaly and severe coronary artery calcifications. 3. Additional incidental/chronic findings as above COMMENTS: Consistent with the [employer]'s Incidental Findings Committee white paper (J Am Ralph Radiol 2015): In patients aged 35 years and older with an incidental thyroid nodule equal to or greater than 1.[address], MRI or extrathyroidal US, further evaluation with dedicated thyroid US is recommended for patients with normal life expectancy and without comorbidities. For smaller nodules without suspicious features, no further evaluation or follow up is recommended. Laboratory Results WBC 15.72 10^3/uL (3.29-11.43) H 03/02/25 17:50 RBC 3.79 10^6/uL (3.85-5.65) L 03/02/25 17:50 Hgb 8.60 g/dL (11.27-16.99) L 03/02/25 17:50 Hct 28.5 % (36-47) L 03/02/25 17:50 MCV 75.2 fl (85-98) L 03/02/25 17:50 MCH 22.7 pg (27-33) L 03/02/25 17:50 MCHC 30.2 g/dL (30-55) 03/02/25 17:50 RDW 15.8 % (12.1-15.1) H 03/02/25 17:50 Plt Count 482 10^3/cmm (157-399) H 03/02/25 17:50 MPV 10.3 fL (7.4-10.4) 03/02/25 17:50 Neut % (Auto) 83.0 % 03/02/25 17:50 Lymph % (Auto) 7.1 % 03/02/25 17:50 [place] % (Auto) 8.7 % 03/02/25 17:50 Eos % (Auto) 0.3 % 03/02/25 17:50 Baso % (Auto) 0.3 % 03/02/25 17:50 Neut # (Auto) 13.07 10^3/uL (1.8-7.7) H 03/02/25 17:50 Lymph # (Auto) 1.1 10^3/uL (0.8-4.8) 03/02/25 17:50 [place] # (Auto) 1.4 10^3/uL (0.2-0.9) H 03/02/25 17:50 Eos # (Auto) 0.1 10^3/uL (0.0-0.8) 03/02/25 17:50 Baso # (Auto) 0.0 10^3/uL (0.0-0.1) 03/02/25 17:50 Nucleated RBC % (auto) 0 % 03/02/25 17:50 Nucleated RBCs # 0.0 /100WBC 03/02/25 17:50 Specimen Type Arterial 03/02/25 18:37 Sample Site Brachial, right 03/02/25 18:37 ABG pH 7.46 (7.35-7.45) H 03/02/25 18:37 ABG pCO2 47.2 mmHg (35-45) H 03/02/25 18:37 ABG pO2 45.4 mmHg (80.0-100.0) L 03/02/25 18:37 ABG PO2/FiO2 Ratio 216 03/02/25 18:37 ABG HCO3 33.6 mmol/L (22-26) H 03/02/25 18:37 ABG Base Excess 8.8 mmol/L (-2.0-2.0) H 03/02/25 18:37 Ramesh Test N/a 03/02/25 18:37 Hematocrit 27.4 % (37-47) L 03/02/25 18:37 Hgb O2 Saturation 72.8 % (95-100) L 03/02/25 18:37 Carboxyhemoglobin 1.9 %THgb (0.4-20.1) 03/02/25 18:37 Methemoglobin 1.1 % (0.4-1.5) 03/02/25 18:37 Total Hemoglobin 8.9 g/dL (12-16) L 03/02/25 18:37 O2 Delivery Device Room air 03/02/25 18:37 FiO2 21.0 % 03/02/25 18:37 Manager Fine ID Amh 03/02/25 18:37 Sodium 132 mmol/L (136-145) L 03/02/25 17:50 Potassium 3.8 mmol/L (3.5-5.1) 03/02/25 17:50 Chloride 84 mmol/L (98-107) L 03/02/25 17:50 Carbon Dioxide 30 mmol/L (22-29) H 03/02/25 17:50 Anion Gap 21.8 (5-19) H 03/02/25 17:50 BUN 49 mg/dL (8-23) H 03/02/25 17:50 Creatinine 1.3 mg/dL (0.5-0.9) H 03/02/25 17:50 GFR Calculation Not Reportable 03/02/25 17:50 Glucose 166 mg/dL (65-115) H 03/02/25 17:50 Calculated Osmolality 291 mOsm/kg (285-295) 03/02/25 17:50 Lactic Acid 3.1 mmol/L (0.5-2.2) H 03/02/25 17:50 Lactic Acid (Sepsis) 2.2 mmol/L (0.5-2.2) 03/02/25 19:37 Calcium 10.4 mg/dL (8.5-10.5) 03/02/25 17:50 Phosphorus 3.6 mg/dL (2.5-4.5) 03/02/25 17:50 Magnesium 2.4 mg/dL (1.7-2.3) H 03/02/25 17:50 Total Bilirubin 0.7 mg/dL (0.15-1.2) 03/02/25 17:50 AST 19 U/L (0-32) 03/02/25 17:50 ALT 12 U/L (0-33) 03/02/25 17:50 Alkaline Phosphatase 92 U/L (35-105) 03/02/25 17:50 Creatine Kinase 32 U/L (26-192) 03/02/25 17:50 Troponin T Baseline 54 ng/L (0-10) H 03/02/25 17:50 Troponin T 120 Minute 52.66 ng/L (0-10) H 03/02/25 19:37 Delta Troponin T -1.34 ABS# (0-10) L 03/02/25 19:37 NT-Pro-B Natriuret Pep 4944 pg/mL (0-450) H 03/02/25 17:50 Total Protein 7.9 g/dL (6.6-8.7) 03/02/25 17:50 Albumin 4.8 g/dL (3.5-5.2) 03/02/25 17:50 Globulin 3.1 g/dL (1.3-4.6) 03/02/25 17:50 Urine Color Yellow (Yellow) 03/02/25 18:20 Urine Appearance Clear (CLEAR) 03/02/25 18:20 Urine pH 7.0 (5-7) 03/02/25 18:20 Ur Specific [place] 1.009 (1.005-1.030) 03/02/25 18:20 Urine Protein Negative (Negative) 03/02/25 18:20 Urine Glucose (UA) Negative (Normal) 03/02/25 18:20 Urine Ketones Negative (Negative) 03/02/25 18:20 Urine Blood Negative (Negative) 03/02/25 18:20 Urine Nitrate Positive (Negative) A 03/02/25 18:20 Urine Bilirubin Negative (Negative) 03/02/25 18:20 Urine Urobilinogen 0.2 mg/dL (Negative) 03/02/25 18:20 Ur Leukocyte Esterase Trace (Negative) A 03/02/25 18:20 Urine RBC 0-2 /hpf (0-2) 03/02/25 18:20 Urine WBC 0-5 /hpf (0-5) 03/02/25 18:20 Ur Squamous Epith Cells 0-5 /hpf (0-5) 03/02/25 18:20 Amorphous Sediment Not Reportable 03/02/25 18:20 Urine Bacteria 4+ /hpf (NONE) H 03/02/25 18:20 Hyaline Casts 1.65 /lpf 03/02/25 18:20 Ethyl Alcohol < 10 mg/dL (0-10) 03/02/25 17:50 Influenza A (PCR) Negative (Negative) 03/02/25 18:35 Influenza Type B (PCR) Negative (Negative) 03/02/25 18:35 RSV (PCR) Negative (Negative) 03/02/25 18:35 SARS-CoV-2 (PCR) Negative (Negative) 03/02/25 18:35 Blood Type O Positive 03/02/25 18:52 Rho(D) Type Rh positive 03/02/25 18:52 Antibody Screen Negative 03/02/25 18:52 All radiology interpretation(s) finalized by discharge Discharge Plan Discharge Patient Disposition: Admitted As Inpatient Admit Provider: Harinder Julian Clinical Impression: Acute hypoxic respiratory failure Condition: Stable Coding Level of Care Code ED Obstetrical Anesthesiologist for Chg Fwd Related Data Home Medications ?Medication ?Instructions ?Recorded ?Confirmed hydrocodone 7.5 mg-acetaminophen 1 - 2 tab PO Q6H PRN Pain 09/04/19 02/25/25 325 mg tablet Previous Rx's ?Medication ?Instructions ?Recorded nitroglycerin 0.4 mg sublingual 0.4 mg sublingual Q5M PRN Chest 10/07/23 tablet Pain #25 tabs prednisone 20 mg tablet See Rx Instructions PO .COMPLEX 08/15/24 PRN joint pain flare #30 tabs apixaban 5 mg tablet 5 mg PO BID #60 tabs 09/18/24 spironolactone 50 mg tablet 50 mg PO DAILY #30 tabs 12/27/24 albuterol sulfate 90 mcg/actuation 2 puff inhalation Q6H PRN 01/10/25 aerosol inhaler (Ventolin HFA) shortness of breath or wheezing #8.5 grams metformin 500 mg tablet,extended See Rx Instructions .Route 01/11/25 release 24 hr .COMPLEX #180 tabs clopidogrel 75 mg tablet See Rx Instructions .Route 01/14/25 .COMPLEX #90 tabs isosorbide mononitrate 30 mg See Rx Instructions .Route 01/14/25 tablet,extended release 24 hr .COMPLEX #180 tabs blood sugar diagnostic (MadeiraCloudTouch #100 strips 01/18/25 Verio test strips) amiodarone 200 mg tablet (Pacerone) 200 mg PO BID #60 tabs 01/29/25 gabapentin 600 mg tablet 600 mg PO TID #90 tabs 02/18/25 lancets 33 gauge (OneTouch Delica #100 ea 02/18/25 Plus Lancet) furosemide 40 mg tablet 80 mg (2 x 40 mg) PO BID #60 tabs 02/21/25 carvedilol 3.125 mg tablet 6.25 mg (2 x 3.125 mg) PO BID #60 02/25/25 tabs metolazone 5 mg tablet 5 mg PO DAILY #30 tabs 02/25/25 Allergies Allergy/AdvReac Type Severity Reaction Status Date / Time RON Inhibitors Allergy Angioedema Verified 12/15/24 12:11 diltiazem (From Cardizem) Allergy unknown Verified 12/15/24 12:11 lovastatin Allergy bone and Verified 12/15/24 12:11 muscle pain meperidine (From Demerol) Allergy itching Verified 12/15/24 12:11 methadone Allergy unknown Verified 12/15/24 12:11 pentazocine (From Talwin) Allergy nausea, Verified 12/15/24 12:11 vomiting metoprolol AdvReac Severe bradycardia Verified 12/15/24 12:11 alendronate sodium (From AdvReac Intermediate swelling Verified 12/15/24 12:11 Fosamax) codeine AdvReac Intermediate headache Verified 12/15/24 12:11 erythromycin base AdvReac Intermediate Unknown Verified 12/15/24 12:11 losartan AdvReac Intermediate dizzy Verified 12/15/24 12:11 methotrexate AdvReac Intermediate nausea/ Verified 12/15/24 12:11 diarrhea pravastatin (From Pravachol) AdvReac Intermediate cramps Verified 12/15/24 12:11
--- NOTE | 2025-03-02 18:35 | ECG_ITS ---
[facility] Date: 2025-03-02 Pat Name: Chela Rodriguez Department: Room: Gender: Female Pacu Nurse: : [id number] Requested By: Denver Orellana Order Number: [id number] Nessa MD: Cristo Chan M.D. Measurements Intervals [place] Rate: 80 P: 80 IL: 192 QRS: 78 QRSD: 109 T: -33 QT: 341 QTc: 395 Interpretive Statements ATRIAL PACED RHYTHM WITH PACs LOW QRS VOLTAGE IN PRECORDIAL LEADS [QRS DEFLECTION < 1.0 mV IN CHEST LEADS] NONSPECIFIC ST & T-WAVE ABNORMALITY Compared to ECG 02/27/2025 05:49:50 Low QRS voltage now present T-wave abnormality now present Ventricular-paced complex(es) or rhythm no longer present Prolonged QT interval no longer present Electronically Signed On 03-07-2025 09:15:25 CDT by Cristo Chan M.D. [email or web address]
[2025-03-02 18:41] LABS: Hematocrit 28.5 % (36-47); Hemoglobin 8.60 g/dL (11.27-16.99); Mean Corpuscular HGB Conc 30.2 g/dL (30-55); Mean Corpuscular Hemoglobin 22.7 pg (27-33); Mean Corpuscular Volume 75.2 fl (85-98); Nucleated Red Blood Cells % 0 %; Platelet Count 482 10^3/cmm (157-399); Red Blood Count 3.79 10^6/uL (3.85-5.65); White Blood Count 15.72 10^3/uL (3.29-11.43)
[2025-03-02 18:44] LABS: Glucose Urine UA Negative (Normal); Nitrate Urine Positive (Negative); Specific Gravity, Urine 1.009 (1.005-1.030)
[2025-03-02 18:49] LABS: Add Urine Microscopic? YES
[2025-03-02 18:50] LABS: ABG PCO2 47.2 mmHg (35-45); ABG PH Result 7.46 (7.35-7.45); Arterial Blood Gas Hematocrit 27.4 % (37-47); Blood Gas Operator Identificat AMH; Blood Gas Sample Site Brachial, right; Blood Gas Sample Type Arterial; Carboxyhemoglobin 1.9 %THgb (0.4-20.1); HCO3 ABG 33.6 mmol/L (22-26); Methemoglobin 1.1 % (0.4-1.5); PO2 ABG 45.4 mmHg (80.0-100.0); PO2 FiO2 Ratio Arterial Blood 216
[2025-03-02 18:57] LABS: Lactic Sepsis W/Reflex 3.1 mmol/L (0.5-2.2)
[2025-03-02 18:58] LABS: Troponin(5th) Baseline 54 ng/L (0-10)
[2025-03-02 19:02] LABS: Reflex Lactate Order REFLEX LACTIC ORDERD
[2025-03-02 19:23] LABS: Alanine Aminotransferase 12 U/L (0-33); Albumin Level 4.8 g/dL (3.5-5.2); Alkaline Phosphatase 92 U/L (35-105); Anion Gap 21.8 (5-19); Aspartate Amino Transferase 19 U/L (0-32); Blood Urea Nitrogen 49 mg/dL (8-23); Calcium 10.4 mg/dL (8.5-10.5); Carbon Dioxide 30 mmol/L (22-29); Chloride 84 mmol/L (98-107); Creatinine Clr Calc Pharmacy 33.7805; Globulin 3.1 g/dL (1.3-4.6); Glucose 166 mg/dL (65-115); Magnesium 2.4 mg/dL (1.7-2.3); NT Pro B Type Natriuretic Pept 4944 pg/mL (0-450); Osmolality Calculated 291 mOsm/kg (285-295); Potassium 3.8 mmol/L (3.5-5.1); Sodium 132 mmol/L (136-145); Total Protein 7.9 g/dL (6.6-8.7)
[2025-03-02 19:24] LABS: Alcohol Level < 10 mg/dL (0-10)
[2025-03-02 19:26] LABS: Respiratory Syncytial Virus Ce NEGATIVE (Negative); SARS-CoV-2 PCR NEGATIVE (Negative)
--- NOTE | 2025-03-02 19:32 | XRR_ITS ---
PROCEDURE INFORMATION: Exam: XR Right Foot Exam date and time: 03/02/2025 7:34 PM Age: 79 years old Clinical indication: Right; RT foot pain; Injury to RT 4th digit TECHNIQUE: Imaging protocol: Radiologic exam of the right foot. Views: 3 or more views. COMPARISON: CR XR foot RT min 3V* [id number] 08/20/2019 11:42 AM FINDINGS: Bones/joints: Subacute to chronic compression deformity of the 4th proximal phalanx with angulation. No additional fracture identified. Plantar and posterior calcaneal spurring. Midfoot arthrosis. Soft tissues: Normal. Vasculature: Vascular calcifications. XR/XR foot RT min 3V* [id number] IMPRESSION: As above
[2025-03-02] MEDS: piperacillin-tazobactam 4.5 GM in sodium chloride 0.9% (plus) 50 ML IV (20:04)
[2025-03-02 20:05] LABS: Lactic Acid level (Lactate) 2.2 mmol/L (0.5-2.2)
[2025-03-02 20:07] LABS: Troponin 5 2HR 52.66 ng/L (0-10)
[2025-03-02 20:09] LABS: Troponin 5 2HR Delta -1.34 ABS# (0-10)
--- NOTE | 2025-03-02 20:19 | PC.NURSE ---
report called to Napoleon Petty LPN at [facility] for urology transfer in [facility]. [place]
[2025-03-02] MEDS: metoprolol tartrate 1 mg/1 mL SDV 5 mL 2.5 MG IVP (20:55)
--- NOTE | 2025-03-02 21:05 | CTR_ITS ---
PROCEDURE INFORMATION: Exam: CTA Chest With Contrast Exam date and time: 03/02/2025 9:27 PM Age: 79 years old Clinical indication: Abnormal findings; Abnormal diagnostic tests; Abnormal wbc; Shortness of breath; Prior surgery; Surgery date: 6+ months; Surgery type: Pacer. Gb; Tachycardia with hypoxemia; Additional info: SOB, hypoxemia, tachycardia TECHNIQUE: Imaging protocol: Computed tomographic angiography of the chest with contrast. Exam focused on the arteries. 3D rendering (Not supervised by radiologist): MIP and/or 3D reconstructed images were created by the technologist. Radiation optimization: All CT scans at this facility use at least one of these dose optimization techniques: automated exposure control; mA and/or kV adjustment per patient size (includes targeted exams where dose is matched to clinical indication); or iterative reconstruction. Contrast material: OMNI 350; Contrast volume: 148 ml; Contrast route: INTRAVENOUS (IV); COMPARISON: CT angio chest PE protcl [id number] 11/19/2023 9:20 PM RADIATION DOSE METRICS: Total DLP (mGy-cm): 787.33 FINDINGS: Tubes, catheters and devices: Cardiac pacemaker device noted. Pulmonary arteries: See Heart finding. Aorta: Unremarkable. No aortic aneurysm. No aortic dissection. Thyroid: Thyroid nodules greater on the right. Lungs: Bibasilar subsegmental atelectasis. No lobar consolidation. Pleural spaces: Unremarkable. No pneumothorax. No pleural effusion. Heart: Cardiomegaly. Mitral annular calcifications. Prominence of the main pulmonary artery which can be seen in the setting of pulmonary hypertension. No evidence of pulmonary embolism. Coronary arteries: Coronary artery calcifications. Lymph nodes: Unremarkable. No enlarged lymph nodes. Intraperitoneal space: Small volume ascites. Bones/joints: Degenerative changes of the visualized spine. Soft tissues: Unremarkable. CT/CT angio chest PE protcl [id number] IMPRESSION: 1. No pulmonary embolism. Prominence of the main pulmonary artery which can be seen in the setting of pulmonary hypertension. 2. Cardiomegaly and severe coronary artery calcifications. 3. Additional incidental/chronic findings as above COMMENTS: Consistent with the [employer]'s Incidental Findings Committee white paper (J Am Ralph Radiol 2015): In patients aged 35 years and older with an incidental thyroid nodule equal to or greater than 1.[address], MRI or extrathyroidal US, further evaluation with dedicated thyroid US is recommended for patients with normal life expectancy and without comorbidities. For smaller nodules without suspicious features, no further evaluation or follow up is recommended.
[2025-03-02] MEDS: iohexol 350 mg/mL 500 mL Btl (per mL) IV (21:27)
--- NOTE | 2025-03-02 23:00 | P.HP_ITS ---
Providers/Chief Complaint 2 Admitting Physician: Harinder Julian MD Primary Care Provider: Devon Walton MD Chief Complaint: ams History of Present Illness Chela Rodriguez is a 79 year old female shaking weakness and hypoxemia. Patient tells me that yesterday she was fine cleaning the house including vacuuming for 4 hours. They have just sold the house that she was cleaning. She had appointment this morning with her [id number] who is a realtor along with and grandson to go look at houses and [place]. The patient states she awoke this morning and was feeling poorly sick and weak and nauseous. She took Zofran and then forced herself to go. She states she had a bucket in the car but did not actually vomit she was weak and tremulous. Patient denies fevers she has not had cough. She was noted to be hypoxemic here and requires 1 L of oxygen. Deep breaths seem to resolve her hypoxemia. I reviewed her CT scan from last year as well as this years and she has diffuse pulmonary infiltrates in the setting of what looks like lab dehydration suspicious for amiodarone toxicity versus viral or pneumonia atypical infection. Review of Systems 2 Narrative: General says she is lethargic weak typically walks fine but sick today no fevers or chills respiratory denies shortness of breath or coughing GI positive for nausea no vomiting no diarrhea constipation no dysuria hematuria. Patient interrupted our interview to pee and asked for catheter. 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 or discharge Neuro no history of seizures or strokes Psychiatric patient states that she feels a little bit anxious but is happy about her move and the sale of her house Musculoskeletal patient states she could not walk today but denies myalgias Medications/Allergies Home Medications ?Medication ?Instructions ?Recorded ?Confirmed ?Last Taken ?Type hydrocodone 7.5 mg-acetaminophen 1 - 2 tab PO Q6H PRN Pain 09/04/19 02/25/25 12/15/24 History 325 mg tablet nitroglycerin 0.4 mg sublingual 0.4 mg sublingual Q5M PRN Chest 10/07/23 02/25/25 09/02/24 Rx tablet Pain #25 tabs prednisone 20 mg tablet See Rx Instructions PO .COMP PAUL 08/15/24 02/25/25 Unknown Rx PRN joint pain flare #30 tabs apixaban 5 mg tablet 5 mg PO BID #60 tabs /14/2 5 02/25/25 12/15/24 Rx spironolactone 50 mg tablet 50 mg PO DAILY #30 tabs 02/25/25 Unknown Rx albuterol sulfate 90 mcg/actuation 2 puff inhalation Q 6H PRN 01/10/25 02/25/25 Unknown Rx aerosol inhaler (Ventolin HFA) shortness of breath or wheezing #8.5 grams metformin 500 mg tablet,extended See Rx Instructions . Route 01/11/25 02/25/25 Unknown Rx release 24 hr .COMPLEX #180 tabs clopidogrel 75 mg tablet See Rx Instructions .Route 0 01/14/25 02/25/25 Unknown Rx .COMPLEX #90 tabs isosorbide mononitrate 30 mg See Rx Instructions .Rout e 01/14/25 02/25/25 Unknown Rx tablet,extended release 24 hr .COMPLEX #180 tabs blood sugar diagnostic (DeepDyveTouch #100 strips 01/18/25 02/25/25 Unknown Rx Verio test strips) amiodarone 200 mg tablet (Pacerone) 200 mg PO BID #60 tabs 01/29/25 02/25/25 Unknown Rx gabapentin 600 mg tablet 600 mg PO TID #90 tabs 02/1802/25/25 Unknown Rx lancets 33 gauge (DeepDyveTouch Delica #100 ea 02/18/25 Unknown Rx Plus Lancet) furosemide 40 mg tablet 80 mg (2 x 40 mg) PO BID #60 tabs 02/21/25 02/25/25 Unknown Rx carvedilol 3.125 mg tablet 6.25 mg (2 x 3.125 mg) PO B ID #60 02/25/25 02/25/25 Unknown Rx tabs metolazone 5 mg tablet 5 mg PO DAILY #30 tabs 02/2502/25/25 Unknown Rx Allergies Allergy/AdvReac Type Severity Reaction Status Date / Time RON Inhibitors Allergy Angioedema Verified 12/15/24 12:11 diltiazem (From Cardizem) Allergy unknown Verified 12/15/24 12:11 lovastatin Allergy bone and Verified 12/15/24 12:11 muscle pain meperidine (From Demerol) Allergy itching Verified 12/15/24 12:11 methadone Allergy unknown Verified 12/15/24 12:11 pentazocine (From Talwin) Allergy nausea, Verified 12/15/24 12:11 vomiting metoprolol AdvReac Severe bradycardia Verified 12/15/24 12:11 alendronate sodium (From AdvReac Intermediate swelling Verified 12/15/24 12:11 Fosamax) codeine AdvReac Intermediate headache Verified 12/15/24 12:11 erythromycin base AdvReac Intermediate Unknown Verified 12/15/24 12:11 losartan AdvReac Intermediate dizzy Verified 12/15/24 12:11 methotrexate AdvReac Intermediate nausea/ Verified 12/15/24 12:11 diarrhea pravastatin (From Pravachol) AdvReac Intermediate cramps Verified 12/15/24 12:11 PFSH Acute 2 PFSH: Medical History Diabetes type 2, uncontrolled Congestive heart failure Paroxysmal atrial fibrillation with RVR Obstructive sleep apnea Diabetes mellitus type 2, controlled Diverticulosis Mesenteric ischemia Hepatomegaly Sleep related hypoxia Coronary artery disease Latent tuberculosis Completed treatment in 2020 Shines Immunization counseling Latent tuberculosis by blood test Tenosynovitis of ankle Psoriatic arthritis High risk medication use Peroneal tendinitis of both lower legs Osteoarthritis Rotator cuff arthropathy of right shoulder Psoriasis Surgical History History of eye surgery Removal of scar tissue History of tonsillectomy History of appendectomy History of tubal ligation History of cholecystectomy H/O: hysterectomy Family History Mother Diabetes Hypertension Heart disease Brother Hypertension Sister Hypertension Grandmother Stroke Other Cancer Social History (Updated 03/02/25 @ 23:06 by Harinder Julian MD) Smoking and tobacco/nicotine status: never used tobacco/nicotine Alcohol intake: never Substance/Drug Use: never Additional social history: 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 she wants full CODE STATUS Previous occupational history: [employer] and oncology Vitals/I&O/Wt Last Vital Signs Temp 98.3 F 03/02/25 20:04 Pulse 95 03/02/25 22:17 Resp 18 03/02/25 22:17 BP 162/62 03/02/25 22:17 Pulse Ox 90 03/02/25 22:17 O2 Del Method Nasal Cannula 03/02/25 22:17 O2 Flow Rate 1 03/02/25 19:20 03/02/25 03/02/25 03/03/25 14:59 22:59 06:59 Intake Total 550 / 550 Balance 550 / 550 Weight last 48 hrs Weight 74.843 kg Physical Exam 2 Narrative: General well-developed well-nourished obese female in no acute cardiopulmonary distress but she is hypoxemic Oral pharynx Mallampati 3 CV regular rate and rhythm Lungs clear to auscultation bilaterally Abdomen positive bowel sounds soft obese nontender Calves no tenderness asymmetry pretibial edema Skin warm and dry Mentation alert and oriented x 3 but mood and affect this little odd. She has her eyes closed much of the interview and is overly detailed at times describing the setting and her activities as opposed to answering questions regarding symptoms she is redirectable however Neuro pupils equally round and reactive to light accommodation patient moves all extremities symmetrically Data 03/02/25 17:50 03/02/25 17:50 A&P Assessment and plan (1) Acute hypoxic respiratory failure: I think this is combination of either atypical bacterial pneumonia or viral pneumonia plus amiodarone toxicity. Hold amiodarone for now. She shows some increase diffuse infiltrate on her CT scan last year and now worse (2) Atypical pneumonia: As above (3) Amiodarone pulmonary toxicity: As above (4) Diabetes mellitus type 2, controlled: Start sliding scale insulin and a 1600-calorie diet (5) Weakness: Unclear etiology possibly viral. Strangely she does not have fever or myalgias but does have a white count. Affect is also odd. CT scan already done was negative of the brain PDMP PDMP Reviewed: Not Reviewed Attestations 2 Medical Necessity Statement*: Patient is admitted to the hospital with hypoxemia and atypical pneumonia. Cannot exclude that this is amiodarone toxicity. She is expected to be in hospital greater than 2 midnight Coding Level of Care Code 76997 Diagnoses Acute hypoxic respiratory failure J96.01 Atypical pneumonia J18.9 Amiodarone pulmonary toxicity J98.4; T46.2X5A Controlled type 2 diabetes mellitus without complication, without long-term current use of insulin E11.9 Diabetes mellitus long term care administrator insulin use: without skilled nursing use Diabetes mellitus complication status: without complication Weakness R53.1 Time Spent (min) 75
[2025-03-03] VITALS (8 sets, daily range): BP systolic 122–168; BP diastolic 71–84; PULSE 59–109; RESP 16–20; TEMP 36.4–37.3; O2SAT 94–96
[2025-03-03] MEDS: sodium chlor 0.9% + KCl 20 mEq 20 MEQ/1,000 ML BAG 100 MEQ IV (00:26)
[2025-03-03 00:59] LABS: Hematocrit 26.7 % (36-47); Hemoglobin 7.90 g/dL (11.27-16.99); Mean Corpuscular HGB Conc 29.6 g/dL (30-55); Mean Corpuscular Hemoglobin 22.3 pg (27-33); Mean Corpuscular Volume 75.2 fl (85-98); Nucleated Red Blood Cells % 0 %; Platelet Count 419 10^3/cmm (157-399); Red Blood Count 3.55 10^6/uL (3.85-5.65); White Blood Count 14.05 10^3/uL (3.29-11.43)
[2025-03-03 01:17] LABS: Troponin 5 6HR 50.94 ng/L (0-10)
[2025-03-03 01:18] LABS: Alanine Aminotransferase 10 U/L (0-33); Albumin Level 4.2 g/dL (3.5-5.2); Alkaline Phosphatase 76 U/L (35-105); Anion Gap 18.5 (5-19); Aspartate Amino Transferase 15 U/L (0-32); Blood Urea Nitrogen 38 mg/dL (8-23); Calcium 9.6 mg/dL (8.5-10.5); Carbon Dioxide 30 mmol/L (22-29); Chloride 88 mmol/L (98-107); Creatinine Clr Calc Pharmacy 36.0422; Globulin 2.7 g/dL (1.3-4.6); Glucose 196 mg/dL (65-115); Osmolality Calculated 290 mOsm/kg (285-295); Potassium 3.5 mmol/L (3.5-5.1); Sodium 133 mmol/L (136-145); Total Protein 6.9 g/dL (6.6-8.7); Troponin 5 6HR Delta -3.06 ng/L (0-12)
--- NOTE | 2025-03-03 01:36 | ECG_ITS ---
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 Measurements Intervals [place] Rate: 96 P: 0 AL: 0 QRS: 25 QRSD: 109 T: -33 QT: 402 QTc: 510 Interpretive Statements ATRIAL FIBRILLATION MODERATE ST DEPRESSION [0.05+ mV ST DEPRESSION] Compared to ECG 03/02/2025 18:35:39 ST (T wave) deviation now present Sinus rhythm no longer present T-wave abnormality no longer present Electronically Signed On 03-07-2025 09:37:55 CDT by Cristo Chan M.D. [email or web address]
[2025-03-03] MEDS: HYDROcodone-acetaminophen 5-325 mg Tablet 1 TAB PO ×2 (09:01→23:59)
[2025-03-03] MEDS: cefTRIAXone 1,000 mg SDV 1000 MG IVP (09:02)
[2025-03-03 10:24] LABS: Ferritin 28 ng/mL (15-150); Iron 17 ug/dL (37-145)
[2025-03-03 12:30] LABS: Hematocrit 26.8 % (36-47); Hemoglobin 8.00 g/dL (11.27-16.99)
--- NOTE | 2025-03-03 12:40 | PC.NURSE ---
0917 -- Patient would not take zaroxolyn and eliquis with AM medications. States that she does not take zaroxolyn anymore and will not take it. Patient reports that she had a GI bleed approx 2 weeks ago and her doctor put her eliquis on hold. Patient reports that she is still taking the Plavix. Notified Dr. Lackey. Eliquis discontinued and orders entered to assess patient for possible GI bleed due to low blood counts. 1200 -- Blood glucose 284, patient refusing lunch and states I do not want that insulin . Educated patient that blood glucose is 284 and she continues to refuse insulin dose per sliding scale.
--- NOTE | 2025-03-03 13:35 | P.PN_ITS ---
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, and she had trouble holding up a glass of water, but it was in both hands, no focal clumsy hands, no other neurological deficits, discussed risk and benefits of holding anticoagulant therapy, patient voiced understanding, all questions answered, agreed to proceed holding Eliquis Vitals/I&O/Wt Last Vital Signs Temp 97.5 F L 03/03/25 11:28 Pulse 59 L 03/03/25 11:28 Resp 19 H 03/03/25 11:28 BP 122/71 03/03/25 11:28 Pulse Ox 96 03/03/25 11:28 O2 Del Method Nasal Cannula 03/03/25 11:28 O2 Flow Rate 1.5 03/03/25 10:38 03/02/25 03/03/25 03/03/25 22:59 06:59 14:59 Intake Total 550 / 550 415 / 965 480 / 480 Balance 550 / 550 415 / 965 480 / 480 Weight last 48 hrs Weight 72.575 kg Weight 72.575 kg Weight 74.843 kg Physical Exam 2 Const: COMMON NORMALS: no acute distress and patient oriented x3 Eye: COMMON NORMALS: Equal, round and reactive pupils present and EOMs intact bilaterally PUPIL: Yes Equal, round and reactive pupils present Resp: COMMON NORMALS: normal respiratory effort, No retractions, No use of accessory muscles and clear to auscultation bilaterally AUSCULTATION: clear to auscultation bilaterally Cardio: COMMON NORMALS: regular rate, regular rhythm, S1 normal heart sound present and S2 normal heart sound present RATE: regular rate RHYTHM: r egular rhythm HEART SOUNDS: S1 normal heart sound present and S2 normal heart sound present GI: COMMON NORMALS: Normal to inspection, nondistended, normoactive bowel sounds present and non-tender Extremity: COMMON NORMALS: no pedal edema Neuro: COMMON NORMALS: patient oriented x3, CN's II-XII intact bilaterally, moves all extremities and no focal motor deficits Psych: COMMON NORMALS: mental status grossly normal Data 03/03/25 12:01 03/03/25 00:39 A&P Assessment and plan (1) Acute hypoxic respiratory failure: (2) Atypical pneumonia: (3) Amiodarone pulmonary toxicity: (4) Diabetes mellitus type 2, controlled: (5) Weakness: (6) UTI (urinary tract infection): Plan Urinary tract infection, continue IV Rocephin Acute on chronic anemia - Hold Eliquis - Iron studies, Hemoccult stool - Monitor hemoglobin, monitor hemodynamics acute hypoxic respiratory failure CT/CT angio chest PE protcl [id number] IMPRESSION: 1. No pulmonary embolism. Prominence of the main pulmonary artery which can be seen in the setting of pulmonary hypertension. 2. Cardiomegaly and severe coronary artery calcifications. 3. Additional incidental/chronic findings as above - Atypical pneumonia - Continue Rocephin - Continue Zithromycin Bilateral clumsy hand, generalized weakness -Continue Plavix, statin Concern for possible CVA? CT/CT head wo con* [id number] IMPRESSION: No acute intracranial abnormality. Senescent changes. -More generalized weakness from UTI, pneumonia - Unlikely to be a stroke as no focal neurologic deficits - But is not on Eliquis due to GI bleed - CT head no acute findings - Current alert oriented x 3, no focal weakness, following all commands Concerns for amiodarone toxicity, hold amiodarone Type 2 diabetes mellitus, low-dose sign scale Atrial fibrillation - Hold Eliquis, hold amiodarone PDMP PDMP Reviewed: Not Reviewed Attestations 2 Medical Necessity Statement*: Patient requires hospitalization UTI, pneumonia, bilateral clumsy hand Diagnoses Acute hypoxic respiratory failure J96.01 Atypical pneumonia J18.9 Amiodarone pulmonary toxicity J98.4; T46.2X5A Controlled type 2 diabetes mellitus without complication, without long-term current use of insulin E11.9 Diabetes mellitus long term care administrator insulin use: without half-way use Diabetes mellitus complication status: without complication Weakness R53.1 UTI (urinary tract infection) N39.0
--- NOTE | 2025-03-03 13:47 | USR_ITS ---
PROCEDURE INFORMATION: Exam: US Duplex Bilateral Extracranial Arteries; Complete; Carotid Arteries Exam date and time: 03/03/2025 3:33 PM Age: 79 years old Clinical indication: Other: CVA TECHNIQUE: Imaging protocol: Real-time duplex ultrasound scan of the bilateral extracranial arteries combining ellison scale, color Doppler and spectral waveform analysis with image documentation. Complete exam. Exam focused on the carotid arteries. COMPARISON: US thyroid [id number] 06/07/2024 6:15 AM FINDINGS: Right common carotid artery: Unremarkable. No occlusion or stenosis. Waveforms are normal. Right internal carotid artery: Unremarkable. No occlusion or stenosis. Waveforms are normal. Right external carotid artery: No stenosis in the origin. Right vertebral artery: Unremarkable. Antegrade flow. Left common carotid artery: Unremarkable. No occlusion or stenosis. Waveforms are normal. Left internal carotid artery: Unremarkable. No occlusion or stenosis. Waveforms are normal. Left external carotid artery: No stenosis in the origin. Left vertebral artery: Unremarkable. Antegrade flow. US/CV carotid duplex BI* [id number] IMPRESSION: No carotid arterial stenosis. REFERENCES: SRU CRITERIA. The degree of internal carotid artery stenosis is based on criteria defined by the Society of Radiologists in Ultrasound (SRU). Normal is no stenosis. Mild is less than 50% stenosis. Moderate is 50-69% stenosis. Severe is greater than 69% stenosis to near occlusion. Near occlusion is a markedly narrowed lumen. Total occlusion is no detectable patent lumen. Reference: Trang Hernández, et al. Carotid Artery Stenosis: Ellison-Scale and Doppler US Diagnosis-Society of Radiologists in Ultrasound Consensus Conference. Radiology 2003; 229:340-346.
--- NOTE | 2025-03-03 13:47 | USCV_ITS ---
Michael Chela Age: 79 Gender: F : 1945 Exam Date: 03/03/2025 15:06 Ordering Phys: Subhash Gonsalez MD Technologist: Francisco Mora Exam Location: [facility] – [place], [place] Indication: sob BP: 122 / 71 HR: 60 Rhythm: Sinus Technical Quality: Adequate MEASUREMENTS (Male / Female) Normal Values 2D ECHO LV Diastolic Diameter PLAX 4.3 cm 4.2 - 5.9 / 3.9 - 5.3 cm IVS Diastolic Thickness 1.6 cm 0.6 - 1.0 / 0.6 - 0.9 cm IVS Systolic Thickness 1.9 cm LVPW Diastolic Thickness 1.7 cm 0.6 - 1.0 / 0.6 - 0.9 cm LVPW Systolic Thickness 1.7 cm LVOT Diameter 2.1 cm LV Ejection Fraction 2D Teich 48.0 % LV Ejection Fraction MOD 4C 54.0 % LV Ejection Fraction MOD 2C 67.9 % LV Ejection Fraction 2C AL 66.8 % LA Diameter 4.1 cm RA Systolic Volume 4C AL 73.9 ml RA Systolic Volume 4C MOD 75.0 ml Aorta at Sinotubular Diameter 2.9 cm IVC Diameter 1.8 cm M-MODE LA Ao Ratio MM 1.1 AV Cusp Separation MM 1.3 cm DOPPLER AV Peak Velocity 168.0 cm/s LVOT Peak Velocity 78.0 cm/s AV Area Cont Eq vti 1.9 cm squared AV Area Cont Eq pk 1.6 cm squared MV Peak Velocity 145.0 cm/s MV Area PHT 4.5 cm squared Mitral E to A Ratio 114.3 TV Peak Velocity 340.5 cm/s TR Peak Velocity 353.0 cm/s TR Peak Gradient 49.8 mmHg TR Mean Velocity 243.0 cm/s TR Mean Gradient 29.5 mmHg TR Velocity Time Integral 78.5 cm PV Peak Velocity 97.7 cm/s RV Ejection Time 0.3 s FINDINGS Left Ventricle Left ventricle is normal in size. LV systolic function is normal with EF of 50-55%. No regional wall motion abnormalities. Right Ventricle Mildly hypokinetic Right Atrium Dilated Left Atrium Severely dilated Mitral Valve Moderate to severe mitral valve calcification. Mild mitral regurgitation. Aortic Valve Aortic valve is thickened. No significant stenosis. Mild aortic regurgitation Tricuspid Valve Mild tricuspid regurgitation. RVSP is 45-50 mmHg. This is consistent with moderate pulmonary hypertension Pulmonic Valve Mild to moderate pulmonic regurgitation. Pericardium Normal Aorta Normal in size IVC Appears to be normal CONCLUSIONS LV systolic function is normal with EF of 50-55%. RV is mildly hypokinetic. Biatrial enlargement. Mild mitral regurgitation Mild aortic regurgitation Mild tricuspid regurgitation Moderate pulmonary hypertension Mild to moderate pulmonic regurgitation Cristo Chan MD (Electronically Signed) Final Date: 04 March 2025 12:27 S
[2025-03-03 14:26] LABS: Hematocrit 27.2 % (36-47); Hemoglobin 8.20 g/dL (11.27-16.99)
[2025-03-03 18:32] LABS: Hematocrit 26.9 % (36-47); Hemoglobin 8.10 g/dL (11.27-16.99)
[2025-03-03 22:21] LABS: Hematocrit 25.5 % (36-47); Hemoglobin 7.70 g/dL (11.27-16.99)
--- NOTE | 2025-03-03 22:50 | PC.NURSE ---
patient refused her lipitor at 2100 told the nurse she does not take this at home
[2025-03-04] VITALS (7 sets, daily range): BP systolic 107–134; BP diastolic 60–71; PULSE 59–80; RESP 16–18; TEMP 36.4–37; O2SAT 93–98
[2025-03-04] MEDS: lidocaine 2% viscous 15 ML, aluminum-mag hydrox-simethicon 30 ML, sucralfate oral liq 1 GM PO (01:46)
[2025-03-04] MEDS: pantoprazole 40 mg SDV IVP ×2 (01:46→11:53)
[2025-03-04 02:20] LABS: Hematocrit 25.4 % (36-47); Hemoglobin 7.70 g/dL (11.27-16.99)
[2025-03-04 06:18] LABS: Hematocrit 26.3 % (36-47); Hemoglobin 7.70 g/dL (11.27-16.99); Mean Corpuscular HGB Conc 29.3 g/dL (30-55); Mean Corpuscular Hemoglobin 22.0 pg (27-33); Mean Corpuscular Volume 75.1 fl (85-98); Nucleated Red Blood Cells % 0 %; Platelet Count 446 10^3/cmm (157-399); Red Blood Count 3.50 10^6/uL (3.85-5.65); White Blood Count 14.16 10^3/uL (3.29-11.43)
[2025-03-04 06:35] LABS: Anion Gap 17.7 (5-19); Blood Urea Nitrogen 50 mg/dL (8-23); Calcium 9.4 mg/dL (8.5-10.5); Carbon Dioxide 29 mmol/L (22-29); Chloride 89 mmol/L (98-107); Creatinine Clr Calc Pharmacy 22.7635; Glucose 176 mg/dL (65-115); Osmolality Calculated 292 mOsm/kg (285-295); Potassium 3.7 mmol/L (3.5-5.1); Sodium 132 mmol/L (136-145)
[2025-03-04] MEDS: HYDROcodone-acetaminophen 5-325 mg Tablet 1 TAB PO ×2 (07:37→13:53)
[2025-03-04] MEDS: cefTRIAXone 1,000 mg SDV 1000 MG IVP (07:37)
--- NOTE | 2025-03-04 08:09 | PC.SOCIAL ---
IMM Update Pg. 2 of IMM Updated and reviewed with patient, who verbalized understanding. Copy provided at bedside.
--- NOTE | 2025-03-04 09:57 | PC.SOCIAL ---
IMM Update pg 2 of IMM updated and reviewed w/ patient. Copy provided and copy dated, initialed and placed in chart.
[2025-03-04 10:13] LABS: Hematocrit 25.8 % (36-47); Hemoglobin 7.80 g/dL (11.27-16.99)
[2025-03-04 12:29] LABS: Anion Gap 18.8 (5-19); Blood Urea Nitrogen 53 mg/dL (8-23); Calcium 9.3 mg/dL (8.5-10.5); Carbon Dioxide 29 mmol/L (22-29); Chloride 87 mmol/L (98-107); Creatinine Clr Calc Pharmacy 20.5955; Glucose 164 mg/dL (65-115); Osmolality Calculated 290 mOsm/kg (285-295); Potassium 3.8 mmol/L (3.5-5.1); Sodium 131 mmol/L (136-145)
[2025-03-04 14:01] LABS: Hematocrit 25.9 % (36-47); Hemoglobin 7.80 g/dL (11.27-16.99)
--- NOTE | 2025-03-04 17:35 | PM.PN ---
Subjective Subjective: -- Patient was seen this morning - is at bedside - She denies any fevers, no chills - She does report fatigue, malaise - She tells me her abdominal swelling is persisting - We discussed her creatinine up to 1.9, discussed holding Lasix, metolazone - She denies any shortness of breath, no lower extremity edema - Denies any bloody or black stools - She again confirms that her Eliquis was held due to concerns for GI bleed, anemia Vitals/I&O/Wt Last Vital Signs Temp 97.9 F 03/04/25 15:30 Pulse 61 03/04/25 15:30 Resp 16 03/04/25 15:30 BP 116/60 03/04/25 15:30 Pulse Ox 98 03/04/25 15:30 O2 Del Method Room Air 03/04/25 15:30 O2 Flow Rate 2 03/04/25 04:02 03/04/25 03/04/25 03/04/25 06:59 14:59 22:59 Intake Total 480 / 1200 960 / 960 Balance 480 / 1200 960 / 960 Weight last 48 hrs Weight 72.575 kg Weight 72.575 kg Weight 72.575 kg Weight 74.843 kg Physical Exam Const: COMMON NORMALS: no acute distress and patient oriented x3 Resp: COMMON NORMALS: normal respiratory effort, No retractions, No use of accessory muscles and clear to auscultation bilaterally AUSCULTATION: clear to auscultation bilaterally Cardio: COMMON NORMALS: regular rate, regular rhythm, S1 normal heart sound present and S2 normal heart sound present RATE: regular rate RHYTHM: regular rhythm HEART SOUNDS: S1 normal heart sound present and S2 normal heart sound present GI: COMMON NORMALS: Normal to inspection, nondistended, normoactive bowel sounds present and non-tender Extremity: COMMON NORMALS: no pedal edema Neuro: COMMON NORMALS: patient oriented x3 Psych: COMMON NORMALS: mental status grossly normal Data 03/04/25 13:52 03/04/25 12:03 Micro: Microbiology 03/02/25 18:20 Urine Culture - Preliminary Urine,Clean Catch Gram Negative Rods A&P Assessment and plan (1) Acute hypoxic respiratory failure: (2) Atypical pneumonia: (3) Amiodarone pulmonary toxicity: (4) Diabetes mellitus type 2, controlled: (5) Weakness: (6) UTI (urinary tract infection): Plan Persistent leukocytosis - Potential related to urinary tract infection - Continue Rocephin Urinary tract infection, growing gram-negative rods, continue IV Rocephin Acute on chronic anemia down to 7.8 - Hold Eliquis, discussed risk and benefits, she wishes medical WAS answered agreed to proceed - Iron studies, shows evidence of iron deficiency anemia, Hemoccult stool pending - Monitor hemoglobin, monitor hemodynamics acute hypoxic respiratory failure CT/CT angio chest PE protcl [id number] IMPRESSION: 1. No pulmonary embolism. Prominence of the main pulmonary artery which can be seen in the setting of pulmonary hypertension. 2. Cardiomegaly and severe coronary artery calcifications. 3. Additional incidental/chronic findings as above - Atypical pneumonia - Continue Rocephin - Continue Zithromycin - Cardiac echo CONCLUSIONS LV systolic function is normal with EF of 50-55%. RV is mildly hypokinetic. Biatrial enlargement. Mild mitral regurgitation Mild aortic regurgitation Mild tricuspid regurgitation Moderate pulmonary hypertension Mild to moderate pulmonic regurgitation Acute kidney injury on CKD - Creatinine up to 1.9 - Potentially related to diuretics, metolazone, spironolactone - Will hold these medications - Monitor renal function, monitor renal ultrasound - Will hold off of fluids given concerns for fluid overload Diastolic CHF - She appears euvolemic - BNP is 4900 - Hold further diuresis Bilateral clumsy hand, generalized weakness -Continue Plavix, statin Concern for possible CVA? CT/CT head wo con* [id number] IMPRESSION: No acute intracranial abnormality. Senescent changes. -More generalized weakness from UTI, pneumonia - Unlikely to be a stroke as no focal neurologic deficits - But is not on Eliquis due to GI bleed - CT head no acute findings -Carotid artery ultrasound within normal limits - Current alert oriented x 3, no focal weakness, following all commands Concerns for amiodarone toxicity, hold amiodarone Type 2 diabetes mellitus, low-dose insulin sliding scale Atrial fibrillation - Hold Eliquis, hold amiodarone PDMP PDMP Reviewed: Not Reviewed Attestations Medical Necessity Statement*: Patient requires hospitalization for KIMANI, anemia, and UTI, leukocytosis Diagnoses Acute hypoxic respiratory failure J96.01 Atypical pneumonia J18.9 Amiodarone pulmonary toxicity J98.4; T46.2X5A Controlled type 2 diabetes mellitus without complication, without long-term current use of insulin E11.9 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
--- NOTE | 2025-03-04 17:39 | US_ITS ---
WS: [id number] RENAL ULTRASOUND URINARY BLADDER ULTRASOUND HISTORY: karen COMPARISON: None available. TECHNIQUE: 2-D and color Doppler imaging of the kidney submitted. Right kidney: 11.6 cm x 4.7 cm x 4.2 cm. Cortex: 1.4 cm Normal echogenicity with no hydronephrosis or mass. Left kidney: 10.6 cm x 4.9 cm x 4.7 cm. Cortex: 1.5 cm Normal echogenicity with no hydronephrosis or mass. Aorta: Normal. Urinary Bladder: Normal distention. Prevoid volume: 173 mL. Post void volume: 124 mL. US/US renal BI* [id number] IMPRESSION: Normal renal ultrasound. No hydronephrosis. Moderate amount of post void residual.
[2025-03-05] MEDS: pantoprazole 40 mg SDV IVP ×2 (00:47→11:48)
[2025-03-05 03:57] VITALS: BP 128/88; PULSE 102; RESP 18; TEMP 36.7; O2SAT 92
[2025-03-05 05:44] LABS: Hematocrit 29.1 % (36-47); Hemoglobin 8.50 g/dL (11.27-16.99); Mean Corpuscular HGB Conc 29.2 g/dL (30-55); Mean Corpuscular Hemoglobin 21.9 pg (27-33); Mean Corpuscular Volume 75.0 fl (85-98); Nucleated Red Blood Cells % 0 %; Platelet Count 467 10^3/cmm (157-399); Red Blood Count 3.88 10^6/uL (3.85-5.65); White Blood Count 10.75 10^3/uL (3.29-11.43)
[2025-03-05 06:09] LABS: Anion Gap 19.2 (5-19); Blood Urea Nitrogen 56 mg/dL (8-23); Calcium 9.1 mg/dL (8.5-10.5); Carbon Dioxide 28 mmol/L (22-29); Chloride 89 mmol/L (98-107); Creatinine Clr Calc Pharmacy 24.0281; Glucose 93 mg/dL (65-115); Osmolality Calculated 291 mOsm/kg (285-295); Potassium 3.2 mmol/L (3.5-5.1); Sodium 133 mmol/L (136-145)
[2025-03-05] MEDS: cefTRIAXone 1,000 mg SDV 1000 MG IVP (08:00)
[2025-03-05 08:04] VITALS: BP 126/66; PULSE 60; RESP 16; TEMP 36.5; O2SAT 95
[2025-03-05] MEDS: HYDROcodone-acetaminophen 5-325 mg Tablet 1 TAB PO (08:09)
[2025-03-05 09:32] VITALS: PULSE 101; RESP 20; O2SAT 95
--- NOTE | 2025-03-05 11:06 | CTR_ITS ---
PROCEDURE INFORMATION: Exam: CT Abdomen And Pelvis Without Contrast Exam date and time: 03/05/2025 12:01 PM Age: 79 years old Clinical indication: Bloating; Prior surgery; Surgery date: 6+ months; Surgery type: Gb, ; Additional info: Ascites, liver crihosis TECHNIQUE: Imaging protocol: Computed tomography of the abdomen and pelvis without contrast. Radiation optimization: All CT scans at this facility use at least one of these dose optimization techniques: automated exposure control; mA and/or kV adjustment per patient size (includes targeted exams where dose is matched to clinical indication); or iterative reconstruction. COMPARISON: CT abdomen pelvis w con* [id number] 10/15/2023 9:19 AM RADIATION DOSE METRICS: Total DLP (mGy-cm): 810.24 FINDINGS: Heart: Mildly enlarged heart. Coronary atherosclerotic calcifications seen. No pericardial effusion. Liver: The liver demonstrates volume redistribution and nodular contour, consistent with cirrhosis. No discrete mass lesion seen. Gallbladder and biliary ducts: The gallbladder has been surgically removed. Pancreas: Normal. No ductal dilation. Spleen: Normal. No splenomegaly. Adrenal glands: Normal. No mass. Kidneys and ureters: Normal. No hydronephrosis. Limited evaluation of previous described lesion in the left lower kidney, given lack of IV contrast. Stomach and bowel: Unremarkable. No obstruction. No mucosal thickening. Appendix: No evidence of appendicitis. Intraperitoneal space: Small amount of ascites is present. No free air. Vasculature: No aortic aneurysm. No aortic dissection. Mild diffuse atherosclerotic disease is present. Lymph nodes: Unremarkable. No enlarged lymph nodes. Urinary bladder: The urinary bladder is distended. Reproductive: The uterus is surgically absent. Bones/joints: Degenerative changes of the spine seen. Soft tissues: Unremarkable. CT/CT abdomen pelvis wo con [id number] IMPRESSION: Cirrhotic liver with stigmata of portal hypertension, manifested by ascites. No acute findings.
[2025-03-05 11:41] LABS: Alanine Aminotransferase 25 U/L (0-33); Albumin Level 3.9 g/dL (3.5-5.2); Alkaline Phosphatase 61 U/L (35-105); Aspartate Amino Transferase 26 U/L (0-32); Globulin 3.1 g/dL (1.3-4.6); Lipase 28 U/L (13-60); Total Protein 7.0 g/dL (6.6-8.7)
--- NOTE | 2025-03-05 11:52 | P.DS_ITS ---
Discharge Providers Date of Admission: 03/02/25 22:03 Date of Discharge: March 05, 2025 Attending Provider at Admission: Harinder Julian MD Attending Provider at Discharge: Subhash Gonsalez MD Primary Care Provider: Devon Walton MD Diagnoses at Discharge Discharge Diagnosis (1) Acute hypoxic respiratory failure: Status: Acute (2) Atypical pneumonia: Status: Acute (3) Amiodarone pulmonary toxicity: Status: Acute (4) Diabetes mellitus type 2, controlled: Status: Acute (5) Weakness: Status: Acute (6) UTI (urinary tract infection): Status: Acute Reason for Visit Reason for Visit: ams Hospital Course Hospital Course This is a 79-year-old female who presents [facility] with a past medical history of type 2 diabetes, CHF, atrial fibrillation, obstructive sleep apnea, CAD, who presents [facility] due to weakness Patient was admitted to [facility] for weakness, shortness of breath multifactorial from UTI, pneumonia, anemia, KIMANI Urinary tract infection, growing gram-negative rods, dc on PO antibitoics Acute on chronic anemia down to 7.8 - Hold Eliquis, discussed risk and benefits, she voices understanding, all questions answered, shared decision making agreed to proceed, will continue to hold on discharge as per shared decision making with patient - Iron studies, shows evidence of iron deficiency anemia, Hemoccult stool pending - Discharged with Protonix, Carafate - Follow-up with general surgery for consideration of EGD acute hypoxic respiratory failure multifactorial CT/CT angio chest PE protcl [id number] IMPRESSION: 1. No pulmonary embolism. Prominence of the main pulmonary artery which can be seen in the setting of pulmonary hypertension. 2. Cardiomegaly and severe coronary artery calcifications. 3. Additional incidental/chronic findings as above - Cardiac echo CONCLUSIONS LV systolic function is normal with EF of 50-55%. RV is mildly hypokinetic. Biatrial enlargement. Mild mitral regurgitation Mild aortic regurgitation Mild tricuspid regurgitation Moderate pulmonary hypertension Mild to moderate pulmonic regurgitation -Concerns for pneumonia during hospitalization managed with IV antibiotics -will dc on oral antibiotics Acute kidney injury on CKD, recieved IV fluids during hospitalization - Creatinine up to 2.1, now down to 1.8 - Potentially related to diuretics, metolazone, spironolactone - Will hold these medications until -stop metolazone and spironolactone - Monitor renal function, monitor renal ultrasound within normal limitis Diastolic CHF - She appears euvolemic - BNP is 4900 - Hold further diuresis as above, resume on Bilateral clumsy hand, generalized weakness -Continue Plavix, statin Concern for possible CVA? though to be unlikely CT/CT head wo con* [id number] IMPRESSION: No acute intracranial abnormality. Senescent changes. -More generalized weakness from UTI, pneumonia - Unlikely to be a stroke as no focal neurologic deficits - But is not on Eliquis due to GI bleed, is on plavix - CT head no acute findings -Carotid artery ultrasound within normal limits - Current alert oriented x 3, no focal weakness, following all commands -patient discharged with instructions to follow-up with general surgery as outpatient for consideration EGD, hold Eliquis, follow-up with primary care provider to monitor hemoglobin - Patient was advised if she were to have any strokelike symptoms to immediately call 911 Concerns for amiodarone toxicity, hold amiodarone on discharge Patient was found to have radiographic evidence of liver cirrhosis during hospitalization, likely fatty liver disease, no history of alcoholism, with evidence of portal hypertension, ascites, patient was advised follow-up with gastroenterology as outpatient Physical Exam Const: COMMON NORMALS: no acute distress and patient oriented x3 Resp: COMMON NORMALS: normal respiratory effort, No retractions, No use of accessory muscles and clear to auscultation bilaterally AUSCULTATION: clear to auscultation bilaterally Cardio: COMMON NORMALS: regular rate, regular rhythm, S1 normal heart sound present and S2 normal heart sound present RATE: regular rate RHYTHM: regular rhythm HEART SOUNDS: S1 normal heart sound present and S2 normal heart sound present GI: COMMON NORMALS: Normal to inspection, nondistended, normoactive bowel sounds present and non-tender Extremity: COMMON NORMALS: no pedal edema Neuro: COMMON NORMALS: patient oriented x3 Psych: COMMON NORMALS: mental status grossly normal Discharge Data Studies Completed and Pending Completed Studies During Hospitalization Category Date Time Status CT angio chest PE protcl [id number] Urgent Cat Scan 03/02/25 21:[address] head wo con* [id number] Stat Cat Scan 03/02/25 18:30 Completed XR chest 1V portable [id number] Stat Exams 03/02/25 18:30 Completed XR foot RT min 3V* [id number] Stat Exams 03/02/25 19:32 Completed CV carotid duplex BI* [id number] Routine Ultrasound 03/03/25 13:47 Completed CV. echo complete* [id number] Routine Ultrasound 03/03/25 13:47 Completed US renal BI* [id number] Routine Ultrasound 03/04/25 17:39 Completed Pending at discharge Category Date Time Status CT abdomen pelvis wo con [id number] Stat Cat Scan 03/05/25 11:06 Ordered Basic Metabolic Panel AM LABS Lab 03/06/25 04:00 Ordered Complete Blood Count w/Auto AM LABS Lab 03/06/25 04:00 Ordered HEP ACUTE [Hepatitis Acute Panel] Routine Lab 03/05/25 05:18 Received Occult Blood Stool [Immunochemical Fecal OCB] Routine Lab 03/03/25 21:11 Ordered Radiology Impressions Chest X-Ray 03/02/25 18:30 IMPRESSION: As above. Head CT 03/02/25 18:30 IMPRESSION: No acute intracranial abnormality. Senescent changes. Foot X-Ray 03/02/25 19:32 IMPRESSION: As above Chest CTA 03/02/25 21:05 IMPRESSION: 1. No pulmonary embolism. Prominence of the main pulmonary artery which can be seen in the setting of pulmonary hypertension. 2. Cardiomegaly and severe coronary artery calcifications. 3. Additional incidental/chronic findings as above COMMENTS: Consistent with the [place] [employer]'s Incidental Findings Committee white paper (J Am Ralph Radiol 2015): In patients aged 35 years and older with an incidental thyroid nodule equal to or greater than 1.[address], MRI or extrathyroidal US, further evaluation with dedicated thyroid US is recommended for patients with normal life expectancy and without comorbidities. For smaller nodules without suspicious features, no further evaluation or follow up is recommended. Carotid Doppler Study 03/03/25 13:47 IMPRESSION: No carotid arterial stenosis. REFERENCES: SRU CRITERIA. The degree of internal carotid artery stenosis is based on criteria defined by the Society of Radiologists in Ultrasound (SRU). Normal is no stenosis. Mild is less than 50% stenosis. Moderate is 50-69% stenosis. Severe is greater than 69% stenosis to near occlusion. Near occlusion is a markedly narrowed lumen. Total occlusion is no detectable patent lumen. Reference: Trang Hernández et al. Carotid Artery Stenosis: Ellison-Scale and Doppler US Diagnosis-Society of Radiologists in Ultrasound Consensus Conference. Radiology 2003; 229:340-346. Renal Ultrasound 03/04/25 17:39 IMPRESSION: Normal renal ultrasound. No hydronephrosis. Moderate amount of post void residual. Laboratory Results WBC 10.75 10^3/uL (3.29-11.43) 03/05/25 05:18 RBC 3.88 10^6/uL (3.85-5.65) 03/05/25 05:18 Hgb 8.50 g/dL (11.27-16.99) L 03/05/25 05:18 Hct 29.1 % (36-47) L 03/05/25 05:18 MCV 75.0 fl (85-98) L 03/05/25 05:18 MCH 21.9 pg (27-33) L 03/05/25 05:18 MCHC 29.2 g/dL (30-55) L 03/05/25 05:18 RDW 16.0 % (12.1-15.1) H 03/05/25 05:18 Plt Count 467 10^3/cmm (157-399) H 03/05/25 05:18 MPV 10.2 fL (7.4-10.4) 03/05/25 05:18 Neut % (Auto) 80.5 % 03/05/25 05:18 Lymph % (Auto) 8.3 % 03/05/25 05:18 [place] % (Auto) 8.8 % 03/05/25 05:18 Eos % (Auto) 0.9 % 03/05/25 05:18 Baso % (Auto) 0.5 % 03/05/25 05:18 Reticulocyte % (Auto) 1.7 % (0.5-2.0) 03/03/25 00:39 Neut # (Auto) 8.65 10^3/uL (1.8-7.7) H 03/05/25 05:18 Lymph # (Auto) 0.9 10^3/uL (0.8-4.8) 03/05/25 05:18 [place] # (Auto) 1.0 10^3/uL (0.2-0.9) H 03/05/25 05:18 Eos # (Auto) 0.1 10^3/uL (0.0-0.8) 03/05/25 05:18 Baso # (Auto) 0.1 10^3/uL (0.0-0.1) 03/05/25 05:18 Nucleated RBC % (auto) 0 % 03/05/25 05:18 Nucleated RBCs # 0.0 /100WBC 03/05/25 05:18 Specimen Type Arterial 03/02/25 18:37 Sample Site Brachial, right 03/02/25 18:37 ABG pH 7.46 (7.35-7.45) H 03/02/25 18:37 ABG pCO2 47.2 mmHg (35-45) H 03/02/25 18:37 ABG pO2 45.4 mmHg (80.0-100.0) L 03/02/25 18:37 ABG PO2/FiO2 Ratio 216 03/02/25 18:37 ABG HCO3 33.6 mmol/L (22-26) H 03/02/25 18:37 ABG Base Excess 8.8 mmol/L (-2.0-2.0) H 03/02/25 18:37 Ramesh Test N/a 03/02/25 18:37 Hematocrit 27.4 % (37-47) L 03/02/25 18:37 Hgb O2 Saturation 72.8 % (95-100) L 03/02/25 18:37 Carboxyhemoglobin 1.9 %THgb (0.4-20.1) 03/02/25 18:37 Methemoglobin 1.1 % (0.4-1.5) 03/02/25 18:37 Total Hemoglobin 8.9 g/dL (12-16) L 03/02/25 18:37 O2 Delivery Device Room air 03/02/25 18:37 FiO2 21.0 % 03/02/25 18:37 Button Cutting Machine Operator ID Amh 03/02/25 18:37 Sodium 133 mmol/L (136-145) L 03/05/25 05:18 Potassium 3.2 mmol/L (3.5-5.1) L 03/05/25 05:18 Chloride 89 mmol/L (98-107) L 03/05/25 05:18 Carbon Dioxide 28 mmol/L (22-29) 03/05/25 05:18 Anion Gap 19.2 (5-19) H 03/05/25 05:18 BUN 56 mg/dL (8-23) H 03/05/25 05:18 Creatinine 1.8 mg/dL (0.5-0.9) H 03/05/25 05:18 GFR Calculation Not Reportable 03/05/25 05:18 Glucose 93 mg/dL (65-115) 03/05/25 05:18 POC Glucose 155 mg/dL (70-110) H 03/05/25 11:30 Calculated Osmolality 291 mOsm/kg (285-295) 03/05/25 05:18 Lactic Acid 3.1 mmol/L (0.5-2.2) H 03/02/25 17:50 Lactic Acid (Sepsis) 2.2 mmol/L (0.5-2.2) 03/02/25 19:37 Calcium 9.1 mg/dL (8.5-10.5) 03/05/25 05:18 Phosphorus 3.6 mg/dL (2.5-4.5) 03/02/25 17:50 Magnesium 2.4 mg/dL (1.7-2.3) H 03/02/25 17:50 Iron 17 ug/dL (37-145) L 03/03/25 00:39 Ferritin 28 ng/mL (15-150) 03/03/25 00:39 Total Bilirubin 0.4 mg/dL (0.15-1.2) 03/05/25 05:18 Direct Bilirubin 0.23 mg/dL (0.00-0.30) 03/05/25 05:18 GGT 13 U/L (5-36) 03/05/25 05:18 AST 26 U/L (0-32) 03/05/25 05:18 ALT 25 U/L (0-33) 03/05/25 05:18 Alkaline Phosphatase 61 U/L (35-105) 03/05/25 05:18 Creatine Kinase 32 U/L (26-192) 03/02/25 17:50 Troponin T Baseline 54 ng/L (0-10) H 03/02/25 17:50 Troponin T 120 Minute 52.66 ng/L (0-10) H 03/02/25 19:37 Delta Troponin T -1.34 ABS# (0-10) L 03/02/25 19:37 Troponin T Hi Sens 6Hr 50.94 ng/L (0-10) H 03/03/25 00:39 Troponin T Hi Sens 6Hr Delta -3.06 ng/L (0-12) L 03/03/25 00:39 NT-Pro-B Natriuret Pep 4944 pg/mL (0-450) H 03/02/25 17:50 Total Protein 7.0 g/dL (6.6-8.7) 03/05/25 05:18 Albumin 3.9 g/dL (3.5-5.2) 03/05/25 05:18 Globulin 3.1 g/dL (1.3-4.6) 03/05/25 05:18 Lipase 28 U/L (13-60) 03/05/25 05:18 Urine Color Yellow (Yellow) 03/02/25 18:20 Urine Appearance Clear (CLEAR) 03/02/25 18:20 Urine pH 7.0 (5-7) 03/02/25 18:20 Ur Specific [place] 1.009 (1.005-1.030) 03/02/25 18:20 Urine Protein Negative (Negative) 03/02/25 18:20 Urine Glucose (UA) Negative (Normal) 03/02/25 18:20 Urine Ketones Negative (Negative) 03/02/25 18:20 Urine Blood Negative (Negative) 03/02/25 18:20 Urine Nitrate Positive (Negative) A 03/02/25 18:20 Urine Bilirubin Negative (Negative) 03/02/25 18:20 Urine Urobilinogen 0.2 mg/dL (Negative) 03/02/25 18:20 Ur Leukocyte Esterase Trace (Negative) A 03/02/25 18:20 Urine RBC 0-2 /hpf (0-2) 03/02/25 18:20 Urine WBC 0-5 /hpf (0-5) 03/02/25 18:20 Ur Squamous Epith Cells 0-5 /hpf (0-5) 03/02/25 18:20 Amorphous Sediment Not Reportable 03/02/25 18:20 Urine Bacteria 4+ /hpf (NONE) H 03/02/25 18:20 Hyaline Casts 1.65 /lpf 03/02/25 18:20 Ethyl Alcohol < 10 mg/dL (0-10) 03/02/25 17:50 Influenza A (PCR) Negative (Negative) 03/02/25 18:35 Influenza Type B (PCR) Negative (Negative) 03/02/25 18:35 RSV (PCR) Negative (Negative) 03/02/25 18:35 SARS-CoV-2 (PCR) Negative (Negative) 03/02/25 18:35 Blood Type O Positive 03/02/25 18:52 Rho(D) Type Rh positive 03/02/25 18:52 Antibody Screen Negative 03/02/25 18:52 Vitals Last Vital Signs Temp 97.7 F 03/05/25 08:04 Pulse 101 H 03/05/25 09:32 Resp 20 H 03/05/25 09:32 BP 126/66 03/05/25 08:04 Pulse Ox 95 03/05/25 09:32 O2 Del Method Room Air 03/05/25 09:32 O2 Flow Rate 2 03/04/25 04:02 Discharge Plan Discharge Patient Disposition: Home Condition: Stable Prescriptions: New pantoprazole [Protonix] 40 mg tablet,delayed release (DR/EC) 40 mg PO BID 30 Days Qty: 60 0RF sucralfate [Carafate] 1 gram tablet 1 g PO BID 28 Days Qty: 56 0RF cefdinir 300 mg capsule 300 mg PO BID 5 Days Qty: 10 0RF Continued hydrocodone-acetaminophen 7.5-325 mg tablet 1 - 2 tab PO Q6H PRN (Reason: Pain) albuterol sulfate [Ventolin HFA] 90 mcg/actuation HFA aerosol inhaler 2 puff inhalation Q6H PRN (Reason: shortness of breath or wheezing) Qty: 8.5 11RF (DME) lancets [OneTouch Delica Plus Lancet] 33 gauge misc See Rx Instructions .Route Qty: 100 3RF Rx Instructions: As directed carvedilol 3.125 mg tablet 6.25 mg PO BID Qty: 60 11RF Patient Comments: pATIENT STATES SHE HAS STOPPED THIS MEDICATION ON HER OWN Rx Instructions: must administer with a meal/food metformin 500 mg tablet extended release 24 hr See Rx Instructions .ROUTE .COMPLEX Qty: 180 3RF Dose Instruction: TAKE 2 TABLETS BY MOUTH EVERY MORNING Rx Instructions: TAKE 2 TABLETS BY MOUTH EVERY MORNING isosorbide mononitrate 30 mg tablet extended release 24 hr See Rx Instructions .ROUTE .COMPLEX Qty: 180 3RF Dose Instruction: TAKE 1 TABLET BY MOUTH TWICE DAILY Rx Instructions: TAKE 1 TABLET BY MOUTH TWICE DAILY clopidogrel 75 mg tablet See Rx Instructions .ROUTE .COMPLEX Qty: 90 3RF Dose Instruction: TAKE 1 TABLET BY MOUTH EVERY DAY Rx Instructions: TAKE 1 TABLET BY MOUTH EVERY DAY (DME) OneTouch Verio test strips Strip See Rx Instructions .ROUTE .COMPLEX Qty: 100 3RF Dose Instruction: USE DIRECTED EVERY DAY Rx Instructions: USE DIRECTED EVERY DAY gabapentin 600 mg tablet 600 mg PO TID Qty: 90 11RF nitroglycerin 0.4 mg Tablet, Sublingual 0.4 mg sublingual Q5M PRN (Reason: Chest Pain) Qty: 25 0RF Changed furosemide 80 mg tablet 40 mg PO BID 30 Days Qty: 30 0RF Rx Instructions: start on 03/07/2025 Discontinued spironolactone 50 mg tablet 50 mg PO DAILY Qty: 30 11RF amiodarone [Pacerone] 200 mg tablet 200 mg PO BID Qty: 60 11RF metolazone 5 mg tablet 5 mg PO DAILY Qty: 30 11RF Discharge Orders: Discharge Order (Routine); Ordered 03/05/25 Ordered By: Subhash Gonsalez Referrals: Blane Sweeney MD [Physician, General Surgery] - 1 week Referral Note: egd and colosncopy We have notified your physician's clinic of the need for a follow-up appointment to be scheduled. If you have not heard from them within the next 2 business days, please call them directly. Venkat Rogers MD [Referring, Internal Medicine] - 1 month Referral Note: liver cirhosis We have notified your physician's clinic of the need for a follow-up appointment to be scheduled. If you have not heard from them within the next 2 business days, please call them directly. Devon Walton MD [Primary Care Provider, Family Practice] - 03/14/25 11:40 am Referral Note: Discharge Diet: Cardiac Discharge Activity: Resume usual activity Patient Instructions: Sucralfate (By mouth) (Carafate), Cefdinir (By mouth) (Omnicef), Pantoprazole (By mouth) (Protonix), Pneumonitis (DC), Urinary Tract Infection in Women (DC), Opioid Safety, Pain Management, Patient Portal & Lynn Instructions Activity Restrictions/Additional Instructions: - Hold Lasix until resume 40 twice daily - Hold metolazone -Take antibiotics as prescribed - For your anemia continue to hold Eliquis - If you develop any strokelike symptoms call 911 - Continue Protonix, Carafate - Follow-up with general surgery in 1 to 2 weeks - For evidence of liver cirrhosis follow-up with gastroenterology in 1 month Discharge Attestations Time Spent in Discharge Care*: greater than 30 min Quality Metrics Clinical Quality Measures [ No reported AMI, CVA or VTE this stay] Coding Level of Care Code 71000 Total time (in minutes) for Discharge: 45 Diagnoses Acute hypoxic respiratory failure J96.01 Atypical pneumonia J18.9 Amiodarone pulmonary toxicity J98.4; T46.2X5A Diabetes mellitus type 2, controlled E11.9 Weakness R53.1 UTI (urinary tract infection) N39.0
[2025-03-05 12:15] LABS: Hepatitis A Antibody IgM Non-Reactive (Nonreactive); Hepatitis B Surface Antigen Non-Reactive (Nonreactive)
[2025-03-05 12:19] VITALS: BP 113/77; PULSE 106; RESP 16; TEMP 36.5; O2SAT 92
[2025-03-05 13:54] VITALS: BP 113/77; PULSE 106; RESP 16; TEMP 36.5; O2SAT 92
== END 2025-03-05 13:55 | disposition home or self-care (01) | DRG 682 ==
LOC: ER 21:12 → MEDSURG 22:04
PROVIDERS: Admitting Provider Internal Medicine; Emergency Provider Emergency Medicine; PCP Family Medicine; Visit Provider Family Medicine
DX: N17.9 Acute kidney failure, unspecified (principal); J18.9 Pneumonia, unspecified organism; J96.01 Acute respiratory failure with hypoxia; I13.0 Hypertensive heart and chronic kidney disease with heart failure and stage 1 through stage 4 chronic kidney disease, or unspecified chronic kidney disease; I50.30 Unspecified diastolic (congestive) heart failure; N39.0 Urinary tract infection, site not specified; K76.6 Portal hypertension; R18.8 Other ascites; T46.2X5A Adverse effect of other antidysrhythmic drugs, initial encounter; E11.22 Type 2 diabetes mellitus with diabetic chronic kidney disease; E11.65 Type 2 diabetes mellitus with hyperglycemia; N18.9 Chronic kidney disease, unspecified; B96.20 Unspecified Escherichia coli [E. coli] as the cause of diseases classified elsewhere; I48.0 Paroxysmal atrial fibrillation; G47.33 Obstructive sleep apnea (adult) (pediatric); I25.10 Atherosclerotic heart disease of native coronary artery without angina pectoris; D63.1 Anemia in chronic kidney disease; K74.60 Unspecified cirrhosis of liver; K76.0 Fatty (change of) liver, not elsewhere classified; R53.1 Weakness; E86.0 Dehydration; R00.0 Tachycardia, unspecified; L40.9 Psoriasis, unspecified; Z79.891 Long term (current) use of opiate analgesic; Z79.84 Long term (current) use of oral hypoglycemic drugs; Z79.02 Long term (current) use of antithrombotics/antiplatelets
CPT/HCPCS: 36415; 36416; 36600; 70450; 71045; 71275; 73630; 74176; 76770; 80048; 80053; 80074; 80076; 80307; 81001; 82550; 82728; 82805; 82962; 82977; 83540; 83605; 83690; 83735; 83880; 84100; 84484; 85014; 85018; 85025; 85045; 86850; 86900; 87077; 87086; 87186; 87637; 93005; 93306; 93880; 94664; 96365; 96372; 96375; 97116; 97161; 97166; 97530; 99285; J0696; J1100; J1815; J2470; J2543; J3480; J3490; J7030; J7040; J9999; Q0144

== ENCOUNTER → 2025-03-13 14:21 | Outpatient (BNVA) | payer MEDICARE, SELFPAY | PROVIDERS: PCP Family Medicine; Visit Provider Surgery | DX: K92.2 Gastrointestinal hemorrhage, unspecified (principal) | CPT/HCPCS: 99204 ==

== ENCOUNTER → 2025-03-14 12:25 | Outpatient (BNVA) | payer MEDICARE, SELFPAY | PROVIDERS: PCP Family Medicine; Visit Provider Family Medicine | DX: I50.32 Chronic diastolic (congestive) heart failure (principal); I48.91 Unspecified atrial fibrillation; K92.2 Gastrointestinal hemorrhage, unspecified; D64.9 Anemia, unspecified; E78.5 Hyperlipidemia, unspecified | CPT/HCPCS: 80053; 83880; 85025 ==

== ENCOUNTER → 2025-03-21 10:33 | Outpatient (BNVA) | payer MEDICARE, SELFPAY | PROVIDERS: PCP Family Medicine; Visit Provider Family Medicine | DX: I50.9 Heart failure, unspecified (principal); D64.9 Anemia, unspecified; E78.5 Hyperlipidemia, unspecified | CPT/HCPCS: 80053; 83880; 85025 ==

== ENCOUNTER → 2025-03-22 10:03 | Outpatient (BNVA) | payer MEDICARE, SELFPAY | PROVIDERS: PCP Family Medicine; Visit Provider Family Medicine | DX: E87.6 Hypokalemia (principal) | CPT/HCPCS: 80048 ==

== ENCOUNTER → 2025-03-25 16:16 | Outpatient (BNVA) | payer MEDICARE, SELFPAY | PROVIDERS: PCP Family Medicine; Visit Provider Family Medicine | DX: I50.32 Chronic diastolic (congestive) heart failure (principal) | CPT/HCPCS: 80048; 85025 ==

== ENCOUNTER → 2025-03-28 09:44 | Outpatient (BNVA) | payer MEDICARE, SELFPAY | PROVIDERS: PCP Family Medicine; Visit Provider Family Medicine | DX: I50.9 Heart failure, unspecified (principal); I48.91 Unspecified atrial fibrillation; D64.9 Anemia, unspecified | CPT/HCPCS: 80048; 85025 ==

== ENCOUNTER 2025-04-04 10:20 | Outpatient (CLI) | payer MEDICARE, SELFPAY | END 2025-04-04 10:21 | disposition home or self-care (01) | LOC: LAB 04-05 07:12 | PROVIDERS: PCP Family Medicine; Visit Provider Family Medicine | DX: I50.32 Chronic diastolic (congestive) heart failure (principal) | CPT/HCPCS: 80048; 85025 ==

== ENCOUNTER → 2025-04-11 08:02 | Outpatient (BNVA) | payer MEDICARE, SELFPAY | PROVIDERS: PCP Family Medicine; Visit Provider Family Medicine | DX: I50.32 Chronic diastolic (congestive) heart failure (principal); I48.91 Unspecified atrial fibrillation; D64.9 Anemia, unspecified | CPT/HCPCS: 80048; 85025 ==

== ENCOUNTER → 2025-04-25 09:45 | Outpatient (BNVA) | payer MEDICARE, SELFPAY | PROVIDERS: PCP Family Medicine; Visit Provider Family Medicine | DX: I50.32 Chronic diastolic (congestive) heart failure (principal); I48.91 Unspecified atrial fibrillation | CPT/HCPCS: 80048; 85025 ==

== ENCOUNTER → 2025-05-28 10:10 | Outpatient (BNVA) | payer MEDICARE, SELFPAY | PROVIDERS: PCP Family Medicine; Visit Provider Family Medicine | DX: I50.32 Chronic diastolic (congestive) heart failure (principal); I48.91 Unspecified atrial fibrillation; E11.9 Type 2 diabetes mellitus without complications; E03.9 Hypothyroidism, unspecified; Z79.899 Other long term (current) drug therapy | CPT/HCPCS: 80053; 83036; 84443; 85025 ==

== ENCOUNTER → 2025-07-16 12:15 | Outpatient (BNVA) | payer MEDICARE, SELFPAY | PROVIDERS: PCP Family Medicine; Visit Provider Family Medicine | DX: I48.91 Unspecified atrial fibrillation (principal); R63.4 Abnormal weight loss; Z79.899 Other long term (current) drug therapy; I50.32 Chronic diastolic (congestive) heart failure; E78.5 Hyperlipidemia, unspecified; I20.0 Unstable angina; I50.9 Heart failure, unspecified; R07.89 Other chest pain | CPT/HCPCS: 80053; 83880; 84484; 85025; 86140 ==

== ENCOUNTER → 2025-07-17 09:55 | Outpatient (BNVA) | payer MEDICARE, SELFPAY | PROVIDERS: PCP Family Medicine; Visit Provider Family Medicine | DX: I50.9 Heart failure, unspecified (principal); R07.89 Other chest pain | CPT/HCPCS: 84484 ==

== ENCOUNTER 2025-08-26 11:31 | Observation (INO) | payer MEDICARE, SELFPAY ==
--- OUTSIDE RECORDS SUMMARY | 2025-08-21 08:00 | XMS_ITS | Encounter Summary ---
Author Organization [facility] Address 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 Procedure visit [facility] [address] [place] [phone] Megan Lewis MD [address] [facility] [address] [place] [phone] SSS (sick sinus syndrome) (CMS/HCC) (Primary Dx) Social History Tobacco Use Types Packs/Day Years Used Date Smoking Tobacco: Never Smokeless Tobacco: Never Alcohol Use Standard Drinks/Week Comments Never 0 (1 standard drink = 0.6 oz pur e alcohol) Food Insecurity Answer Date Recorded Do you find you are eating l ess than you should because you can t pay for food? No 06/10/2025 Transportation Needs Answer Date Record ed Have you gone without health care because you didn t have a way to get there? Or worry about transportation for future doctor visits, clam picker medication, etc.? No 2024 Housing Stability Answer Date Recorded Do you worry you won t have a steady place to sleep or struggle to pay rent or mortgage? No 06/10/2025 Utility Needs Answer Date Recorded Do you have difficulty payin g for utility costs (electric, water or gas bills)? No 06/10/2025 Medication Needs Answer Date Recorded Have you skipped taking medi cation due to cost or worry you can t afford new medications? No 06/10/2025 Feeling Safe Answer Date Recorded Are you in a relationship wi th someone who hurts you emotionally and/or physically? 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 Gender Identity Not on file Sexual Orientation Not on file documented as of this encounter Plan of Treatment Upcoming Encounters Date Type Department Care Team (Late st Contact Info) Description 11/27/2025 1:00 PM CDT Office Visit [facility] [address] [place] [phone] Megan Lewis MD [address] [place] [phone] Nereida Mcbride PA-C [address], [address] [place] [phone] Scheduled Orders Name Type Priority Associated Diagnoses Orde r Schedule PACER ANALYSIS REMOTE, UP TO 90 DAYS Cardiac Services Routine SSS (sick sinus syndrome) (CMS/HCC) Ordered: 08/22/2025 documented as of this encounter Visit Diagnoses Diagnosis SSS (sick sinus syndrome) (CMS/HCC)- Primary Sinoatrial node dysfunction documented in this encounter Care Teams Service Administrator Relationship Specialty Start Date End Date Devon Walton MD [address] [place] [id number] PCP - General 11/10/05 documented as of this encounter
[2025-08-26] VITALS (9 sets, daily range): BP systolic 118–160; BP diastolic 60–84; PULSE 60–73; RESP 15–18; TEMP 36.4–36.9; O2SAT 90–99; BMI 25.6; BMI 24.1
--- NOTE | 2025-08-26 11:33 | W.ED.WEAKNES ---
HPI - Weakness General: Chief complaint: Weakness Stated complaint: WEAKNESS Time Seen by Provider: 08/26/25 11:32 History of Present Illness: 79-year-old female with a history of hypokalemia, coronary artery disease, diabetes, congestive heart failure, paroxysmal A-fib, diverticulosis, mesenteric ischemia, hepatomegaly, osteoarthritis and psoriasis who presents emergency room with generalized weakness. She attributes this to not having had her potassium for 4 days. There was some sort of mixup at the pharmacy and she has not been will get her replacement. She talked to her physician because she was feeling generally weak and he told her to go to the emergency room Related Data Previous Rx's ?Medication ?Instructions ?Recorded nitroglycerin 0.4 mg sublingual 0.4 mg sublingual Q5M PRN Chest 10/07/23 tablet Pain #25 tabs albuterol sulfate 90 mcg/actuation 2 puff inhalation Q6H PRN 01/10/25 aerosol inhaler (Ventolin HFA) shortness of breath or wheezing #8.5 grams metformin 500 mg tablet,extended See Rx Instructions .Route 01/11/25 release 24 hr .COMPLEX #180 tabs clopidogrel 75 mg tablet See Rx Instructions .Route 01/14/25 .COMPLEX #90 tabs isosorbide mononitrate 30 mg See Rx Instructions .Route 01/14/25 tablet,extended release 24 hr .COMPLEX #180 tabs blood sugar [facility] strips 01/18/25 Verio test strips) gabapentin 600 mg tablet 600 mg PO TID #90 tabs 02/18/25 lancets 33 gauge (OneTouch Delica #100 ea 02/18/25 Plus Lancet) amiodarone 200 mg tablet (Pacerone) 200 mg PO BID #60 tabs 03/18/25 potassium chloride 20 mEq 60 meq (3 x 20 mEq) PO BID #120 04/04/25 tablet,extended release tabs ondansetron 4 mg disintegrating 4 mg PO Q6H PRN nausea and 05/17/25 tablet vomiting #20 tabs carvedilol 3.125 mg tablet See Rx Instructions .Route 05/27/25 .COMPLEX #180 tabs metolazone 5 mg tablet See Rx Instructions .Route 05/27/25 .COMPLEX #90 tabs baclofen 5 mg tablet 5 mg PO DAILY #30 tabs 06/12/25 furosemide 40 mg tablet (Lasix) 40 mg PO DAILY #30 tabs 07/12/25 hydrocodone 7.5 mg-acetaminophen 1 tab PO Q6H PRN Pain 1 month #90 07/29/25 325 mg tablet tabs ferrous sulfate 325 mg (65 mg 325 mg PO TID #90 tabs 08/11/25 iron) tablet Allergies Allergy/AdvReac Type Severity Reaction Status Date / Time RON Inhibitors Allergy Angioedema Verified 03/13/25 14:27 diltiazem (From Cardizem) Allergy unknown Verified 03/13/25 14:27 lovastatin Allergy bone and Verified 03/13/25 14:27 muscle pain meperidine (From Demerol) Allergy itching Verified 03/13/25 14:27 methadone Allergy unknown Verified 03/13/25 14:27 pentazocine (From Talwin) Allergy nausea, Verified 03/13/25 14:27 vomiting metoprolol AdvReac Severe bradycardia Verified 03/13/25 14:27 alendronate sodium (From AdvReac Intermediate swelling Verified 03/13/25 14:27 Fosamax) codeine AdvReac Intermediate headache Verified 03/13/25 14:27 erythromycin base AdvReac Intermediate Unknown Verified 03/13/25 14:27 losartan AdvReac Intermediate dizzy Verified 03/13/25 14:27 methotrexate AdvReac Intermediate nausea/ Verified 03/13/25 14:27 diarrhea pravastatin (From Pravachol) AdvReac Intermediate cramps Verified 03/13/25 14:27 Review of Systems Narrative: Constitutional symptoms: Negative except as documented in HPI. Skin symptoms: Negative except as documented in HPI. Eye symptoms: Negative except as documented in HPI. ENMT symptoms: Negative except as documented in HPI. Respiratory symptoms: Negative except as documented in HPI. Cardiovascular symptoms: Negative except as documented in HPI. Gastrointestinal symptoms: Negative except as documented in HPI. Genitourinary symptoms: Negative except as documented in HPI. Musculoskeletal symptoms: Negative except as documented in HPI. Neurologic symptoms: Negative except as documented in HPI. Psychiatric symptoms: Negative except as documented in HPI. Endocrine symptoms: Negative except as documented in HPI. PFSH ED PFSH: Medical History (Updated 08/26/25 @ 12:42 by Kisha Glover MD) Coronary artery disease Diabetes type 2, uncontrolled Congestive heart failure Paroxysmal atrial fibrillation with RVR Obstructive sleep apnea Diabetes mellitus type 2, controlled Diverticulosis Mesenteric ischemia Hepatomegaly Sleep related hypoxia Latent tuberculosis Completed treatment in 2020 Shingles Immunization counseling Latent tuberculosis by blood test Tenosynovitis of ankle Psoriatic arthritis High risk medication use Peroneal tendinitis of both lower legs Osteoarthritis Rotator cuff arthropathy of right shoulder Psoriasis Surgical History History of eye surgery Removal of scar tissue History of tonsillectomy History of appendectomy History of tubal ligation History of cholecystectomy H/O: hysterectomy Family History Mother Diabetes Hypertension Heart disease Brother Hypertension Sister Hypertension Grandmother Stroke Other Cancer Social History Smoking and tobacco/nicotine status: never used tobacco/nicotine Alcohol intake: never Substance/Drug Use: never Additional social history: 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 Skin: Warm, dry. Head: Normocephalic, atraumatic. Neck: Supple, trachea midline. Eye: Extraocular movements are intact. Ears, nose, mouth and throat: Tacky oral mucosa. Cardiovascular: Regular, Normal peripheral perfusion. Respiratory: Lungs are clear to auscultation, respirations are non-labored, breath sounds are equal, Symmetrical chest wall expansion. Gastrointestinal: Soft, Nontender, Non distended Musculoskeletal: Normal ROM, no deformity. Neurological: Alert and oriented, No focal neurological deficit observed. Psychiatric: Cooperative, appropriate mood & affect. Course Vital Signs: Vital signs: Vital Signs Temperature 98.4 F 08/26/25 11:35 Pulse Rate 60 08/26/25 13:14 Respiratory Rate 16 08/26/25 13:14 Blood Pressure 146/74 08/26/25 13:14 Pulse Oximetry 96 08/26/25 13:14 Oxygen Delivery Me thod Room Air 08/26/25 11:35 MDM - Weakness Medical Decision Making Medical decision making Patient's reason for coming to the emergency room: Generalized weakness concern for hypokalemia Social determinants: Patient is retired I reviewed the patient's medical record. 79-year-old female with a history of hypokalemia, coronary artery disease, diabetes, congestive heart failure, paroxysmal A-fib, diverticulosis, mesenteric ischemia, hepatomegaly, osteoarthritis and psoriasis I reviewed the patient's current home meds Patient has been on potassium but did not have any for the last 4 days. Alternate historians: None Differential diagnosis for patient presenting with generalized weakness including but not limited to and based on the above HPI, review of systems and physical exam: Sepsis. Dehydration. Renal failure. Electrolyte abnormalities. Anemia. Congestive heart failure. Hypotension. Coronary syndrome. Hepatitis. Cirrhosis. Infections such as pneumonia, urinary tract infection, [place]ne illness, Cellulitis, Viral infections including influenza and Covid-19. Workup: labwork and lab/exam driven imaging ordered to evaluate, rule in and rule out above pathologies. Hypokalemia #1 on the differential as this is been the usual cause of her symptoms EKG: Time 1214. Rate 62. Normal sinus rhythm, No ST-T changes, no ectopy, paced rhythm, this was reviewed and interpreted by myself the emergency room physician at 1218 EKG: Time 1235. Rate 61. Normal sinus rhythm, No ST-T changes, no ectopy, paced rhythm, this was reviewed and interpreted by myself the emergency room physician at 12:40 Lab Review: Laboratory results were reviewed and interpreted by myself the emergency room physician. No leukocytosis. No anemia. Slight worsening of her chronic renal insufficiency with a BUN/creatinine of 37 and 1.3. Potassium is very low at 1.9. Assessment of risk: Level of risk: Moderate to high risk patient. Multiple comorbidities. Elderly. Hospitalization considerations: Patient is being admitted for continued infusion of potassium and a possible recheck Reexamination: Patient remained stable. No increased work of breathing. No altered mental status. No focal motor deficits. Assessment and plan: Hypokalemia Acute on chronic renal insufficiency Dehydration ?80 mill equivalents IV potassium and 40 mill equivalents p.o. liquid. 500 mL normal saline bolus -I discussed the patient with the hospitalist on-call who is admitting the patient. - Discussed findings and plan with patient. Answered any questions. - All laboratory values were reviewed and interpreted personally by myself, the ER physician - All imaging was reviewed and interpreted personally by myself, the ER physician. - Evaluation and treatment of this problem were appropriate in the emergency setting Lab Data 08/26/25 11:44 08/26/25 11:44 Laboratory Results WBC 11.02 10^3/uL (3.29-11.43) 08/26/25 11:44 RBC 4.53 10^6/uL (3.85-5.65) 08/26/25 11:44 Hgb 14.20 g/dL (11.27-16.99) 08/26/25 11:44 Hct 39.2 % (36-47) 08/26/25 11:44 MCV 86.5 fl (85-98) 08/26/25 11:44 MCH 31.3 pg (27-33) 08/26/25 11:44 MCHC 36.2 g/dL (30-55) 08/26/25 11:44 RDW 12.8 % (12.1-15.1) 08/26/25 11:44 Plt Count 416 10^3/cmm (157-399) H 08/26/25 11:44 MPV 10.1 fL (7.4-10.4) 08/26/25 11:44 Neut % (Auto) 81.3 % 08/26/25 11:44 Lymph % (Auto) 10.4 % 08/26/25 11:44 [place] % (Auto) 6.4 % 08/26/25 11:44 Eos % (Auto) 1.2 % 08/26/25 11:44 Baso % (Auto) 0.3 % 08/26/25 11:44 Neut # (Auto) 8.96 10^3/uL (1.8-7.7) H 08/26/25 11:44 Lymph # (Auto) 1.2 10^3/uL (0.8-4.8) 08/26/25 11:44 [place] # (Auto) 0.7 10^3/uL (0.2-0.9) 08/26/25 11:44 Eos # (Auto) 0.1 10^3/uL (0.0-0.8) 08/26/25 11:44 Baso # (Auto) 0.0 10^3/uL (0.0-0.1) 08/26/25 11:44 Nucleated RBC % (auto) 0 % 08/26/25 11:44 Nucleated RBCs # 0.0 /100WBC 08/26/25 11:44 Sodium 135 mmol/L (136-145) L 08/26/25 11:44 Potassium 1.9 mmol/L (3.5-5.1) L* 08/26/25 11:44 Chloride 83 mmol/L (98-107) L 08/26/25 11:44 Carbon Dioxide 41 mmol/L (22-29) H 08/26/25 11:44 Anion Gap 12.9 (5-19) 08/26/25 11:44 BUN 37 mg/dL (8-23) H 08/26/25 11:44 Creatinine 1.3 mg/dL (0.5-0.9) H 08/26/25 11:44 GFR Calculation Not Reportable 08/26/25 11:44 Glucose 170 mg/dL (65-115) H 08/26/25 11:44 Calculated Osmolality 293 mOsm/kg (285-295) 08/26/25 11:44 Lactic Acid 1.2 mmol/L (0.5-2.2) 08/26/25 11:44 Calcium 10.5 mg/dL (8.5-10.5) 08/26/25 11:44 Magnesium 2.0 mg/dL (1.7-2.3) 08/26/25 11:44 Total Bilirubin 1.3 mg/dL (0.15-1.2) H 08/26/25 11:44 AST 50 U/L (0-32) H 08/26/25 11:44 ALT 36 U/L (0-33) H 08/26/25 11:44 Alkaline Phosphatase 106 U/L (35-105) H 08/26/25 11:44 Troponin T Baseline 100 ng/L (0-10) H 08/26/25 11:44 Total Protein 7.3 g/dL (6.6-8.7) 08/26/25 11:44 Albumin 4.2 g/dL (3.5-5.2) 08/26/25 11:44 Globulin 3.1 g/dL (1.3-4.6) 08/26/25 11:44 Amorphous Sediment Not Reportable 08/26/25 12:34 No radiology studies performed this visit Discharge Plan Discharge Patient Disposition: Placed in Observation Clinical Impression: Hypokalemia Discharge Diet: Usual diet Discharge Activity: Increase activity as tolerated Coding Level of Care Code ED Chemistry Research Assistant for Jan Tran
--- OUTSIDE RECORDS SUMMARY | 2025-08-26 11:39 | XMS_ITS | Clinical Summary ---
Author Organization [facility] Address [address] [place] [address] Care Team Providers Care Meat Curer Name Role Phone Devon Walton MD Primary Care Provider [phone] Allergies Active Allergy Reactions Criticality Noted Date Comments Cosme Inhibitors Unknown 07/30/2015 Bimatoprost Headache Low 03/24/2022 Brimonidine Headache Low 03/24/2022 Canagliflozin Urinary Retention Low 09/02/2016 Codeine Unknown 07/30/2015 Exenatide Constipation High 03/24/2022 Losartan Dizziness Low 09/02/2016 Meperidine Unknown 07/30/2015 Pentazocine Lactate Unknown 07/30/2015 Cggcuab-Zzr-Oao Reductase Inhibitors Unknown 07/30/2015 Unclassified Drug Unknown 07/30/2015 Beta blockers Medications glimepiride (AMARYL) 4 mg tabletIndications:Type 2 diabetes mellitus with hyperglycemia, without long-term current use of insulin ([facility]) TAKE 1 TABLET BY MOUTH TWO TIMES DAILY 180 Tablet 3 020 Active Additional Information Patient not taking.Reported on 05/21/2025 Lancing Device with Lancets (RuckusTouch Delica Plus Lanc Dev) Kit USE TO TEST BLOOD SUGARS DAILY 1 Each 0 020 Active tofacitinib (Xeljanz) 5 mg Tablet Take 5 mg by mouth 2 times daily. 021 Active POTASSIUM CHLORIDE ORALIndications:Type 2 diabetes mellitus with hyperglycemia (CMS/[facility]),Chronic congestive heart failure, unspecified congestive heart failure type (CMS/[facility]),Pure hypercholesterolemia Take 20 mEq by mouth daily. Active furosemide (LASIX) 40 mg tabletIndications:Type 2 [...] without long-term current use of insulin ([facility]) Take 1 Tablet (10 mg) by mouth daily. 90 Tablet 2 Active Additional Information Patient not taking.Reported on 05/21/2025 folic acid (FOLVITE) 1 mg tablet Take 1 mg by mouth daily. Active Additional Information Patient not taking.Reported on 05/21/2025 blood sugar diagnostic (OneTouch Verio test strips) Strip USE ONE TEST STRIP EVERY DAY 100 Strip 6 Active metFORMIN (GLUCOPHAGE XR) 500 mg Extended Release 24 hour tabletIndications:Type 2 diabetes mellitus with hyperglycemia, without long-term current use of insulin ([facility]) take 2 tablets by mouth every morning 180 Tablet 1 Active lancets 33 gauge USE ONE LANCET [...] Tablet Take 75 mg by mouth. Active ferrous sulfate 325 mg (65 mg iron) tablet Take by mouth. 025 Active ondansetron (ZOFRAN ODT) 4 mg Tablet, Rapid Dissolve 025 Active metOLazone (ZAROXOLYN) 5 mg tablet Take by mouth. 025 Active carvediloL (COREG) 3.125 mg tablet Take by mouth. 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 SSS (sick sinus syndrome) 09/13/2024 Nontoxic multinodular goiter 08/07/2015 Type 2 diabetes mellitus with hyperglycemia 07/07 CHF (congestive heart failure) 07/30/2015 Hyperlipemia 07/30/2015 Encounters Date Type Department Care Team Description 08/21/2025 8:00 AM OIL FIELD CASER Procedure visit [place] [address] [place] [phone] Megan Lewis MD SSS (sick sinus syndrome) (CMS/[facility]) (Primary Dx) 08/07/2025 Telephone [place] [id number] [place] [phone] Megan Lewis MD Waiting for call back 08/06/2025 External Device Data STL ABSTRACTION Provider, Abstract 07/22/2025 Telephone [place] [id number] [place] [phone] Megan Lewis MD Results 07/17/2025 Abstract [place] [id number] [place] [phone] Provider, Abstract 06/12/2025 Results Follow-Up [facility] Emergency Department [address] [place] [phone] Liset Jesus, RN URINE CULTURE 06/11/2025 External Device Data STL ABSTRACTION Provider, Abstract 06/11/2025 External Device Data STL ABSTRACTION Provider, Abstract 06/11/2025 External Device Data STL ABSTRACTION Provider, Abstract 06/10/2025 10:37 PM CDT - 06/11/2025 6:21 AM CDT Emergency [facility] Emergency Department [address] [place] [phone] Zackary Gipson MD Acute cystitis with hematuria (Primary Dx); Generalized muscle weakness; History of falling; Multiple contusions Discharge Disposition: Home or Self Care 06/10/2025 Travel 05/28/2025 Telephone [facility] [address] [facility] [address] [place] [phone] Earl Betancourt CRNP Follow Up from Last 3 Months Immunizations Immunization Administration [...] worry about transportation for future doctor visits, pick up attendant medication, etc.? No 2024 Housing Stability Answer [...] on file Legal Sex Female 5:53 AM OIL FIELD CASER Gender Identity Not on file Sexual Orientation Not on file Last Filed Vital Signs Vital Sign Reading Time Taken Comments Blood Pressure 151/83 06/11/2025 2:00 AM CDT Pulse 60 06/11/2025 12:00 AM CDT Temperature 36.7 C (98.1 F) 06/10/2025 8:29 PM CDT Respiratory Rate 12 06/10/2025 8:29 PM CDT Oxygen Saturation 96% 06/10/2025 11:00 PM CDT Inhaled Oxygen Concentration - - Weight 66.2 kg (146 lb) 06/10/2025 11:21 AM CDT Height 157.5 cm (5' 2 ) 06/10/2025 11:21 AM CDT Body Mass Index 26.7 06/10/2025 11:21 AM CDT Plan of Treatment Upcoming Encounters Date Type Department Care Team (Late st Contact Info) Description 11/27/2025 1:00 PM CDT Office Visit [facility] [address] [facility] [address] [place] [phone] Megan Lewis MD [address] [facility] [address] [place] [phone] Nereida Mcbride PA-C [address] [facility] [address] [place] [address] Health Maintenance Due Date Last Done Comments [...] MONTHS 01/30/20242022, 03/24/2022, 07/13/2021, Additional history exists DIABETES MICROALBUMIN ANNUAL SCREEN 08/01/2024 08/01/2023, 03/24/2022 LDL CHOLESTEROL ANNUAL 08/01/2024 , 03/24/2022, 11/05/2019, Additional history exists OSTEOPOROSIS SCREENING 10/23/2024 10/23/2019, 2015 INFLUENZA VACCINE (#1) 2025 07/12/2022, 2015 COVID-19 Vaccine (2024-2 6 season) 2025 07/27/2023, 06/30/2022, 03/23/2022, Additional history exists Medical Devices Implanted Type Area Entry Level Marketing Assistant Device Identifier Shelf Expiration Date Model / Serial / Lot Lead Pacing Capsure Fix Novus 45cm [id number] - Csc - [id number] Implanted:Qty: 1 on 09/14/2024 by Megan Lewis MD at [facility] Lead Left: Chest Wall [employer]- CRM - BULK BUY [id number] 07/18/2026 5076-45 / [id number] 5 Lead Capsurefix Novus Mri 52cm Endocardial Pacing 5076-52 - [id number] Implanted:Qty: 1 on 09/14/2024 by Megan Lewis MD at [facility] Lead Left: Chest Wall [employer] - BULK [employer] [id number] 06/28/2026 5076-52 / [id number] 2V / Pacemaker Darline Xt Dr Mri Ipg Dual Chmbr Surescan [id number] - [id number] Implanted:Qty: 1 on 09/14/2024 by Megan Lewis MD at [facility] Pacemaker Left: Chest Wall [employer] CRM - BULK [employer]Y [id number] 01/30/2026 [id number] / [id number] / Description:VT monitor rate 162 bpm Procedures Procedure Name Priority Date/Time Associated Diagnosis Comments EKG 12-LEAD Routine 07/17/2025 TROPONIN 6 HR, 5TH GEN Timed Study 06/10/2025 11:35 PM CDT EXTRA TUBE (URINE NGO) Stat 06/10/2025 10:55 PM CDT URINALYSIS W/REFLEX MICROSCOPIC Stat 06/10/2025 10:55 PM CDT URINE CULTURE Stat 06/10/2025 10:55 PM CDT TROPONIN 2 HR, 5TH GEN Timed Study 06/10/2025 1:38 PM CDT XR CHEST PA OR AP 1 VW Stat 06/10/2025 12:13 PM CDT BRAIN NATRIURETIC PEPTIDE, BNP OR PROBNP Stat 06/10/2025 12:02 PM CDT TROPONIN BASELINE, 5TH GEN Stat 06/10/2025 12:02 PM CDT COMPREHENSIVE METABOLIC PANEL Stat 06/10/2025 12:02 PM CDT CBC WITH DIFFERENTIAL Stat 06/10/2025 12:02 PM CDT EKG 12-LEAD Stat 06/10/2025 11:47 AM CDT MICROALBUMIN/CREATINI NE RATIO, RANDOM UR Routine 08/01/2023 9:30 AM OIL FIELD CASER Type 2 diabetes mellitus with hyperglycemia, without long-term current use of insulin ([facility]) LIPID PANEL Routine 08/01/2023 9:22 AM OIL FIELD CASER Type 2 diabetes mellitus with hyperglycemia, without long-term current use of insulin ([facility]) HEMOGLOBIN A1C Routine 08/01/2023 9:22 AM OIL FIELD CASER Type 2 diabetes mellitus with hyperglycemia, without long-term current use of insulin ([facility]) from Last 3 Months or Most Recently Relevant to Health Maintenance Results * EKG 12-LEAD (07/17/2025) Only the most recent of2 resultswithin the time period is included. us Abstract Provider ECG ORDERABLES Final Result * (ABNORMAL) TROPONIN 6 HR, 5TH GEN (06/10/2025 11:35 PM CDT) TROPONIN T, 6 HR 5TH GEN 56(H) <11 ng/L 06/11/2025 12:18 AM CDT [facility] DELTA 6HR TROPONIN T 1 See Interp. 06/11/2025 12:18 AM CDT [facility] Blood Venipuncture / Unknown 06/10/2025 11:35 PM CDT 06/10/2025 11:42 PM CDT Narrative [facility] - 06/11/2025 12:18 AM CDT Troponin elevated. Delta indeterminate. Delay in collection of timed specimen beyond recommended collection interval. Results must be interpreted in clinical context. us Vivian Garcia FLOWERS SALESPERSON CHEMISTRY ORDERABLES Final Re sult [facility] CLIA # [id number] [facility] [address] [place] [address] * EXTRA TUBE (URINE NGO) (06/10/2025 10:55 PM CDT) Urine URINE SPECIMEN OBTAINED BY CLEAN CATCH PROCEDURE / Unknown Collection / Unknown 06/10/2025 10:55 PM CDT 06/10/2025 11:00 PM CDT us Vivian Garcia FLOWERS SALESPERSON URINE ORDERABLES Final Result [facility] CLIA # [id number] [address] [address] [place] [address] * (ABNORMAL) URINALYSIS WITH REFLEX MICROSCOPIC (06/10/2025 10:55 PM CDT) COLOR UA Yellow Pale to Dark Yellow 06/10/2025 11:20 PM CDT [facility] CLARITY UA Cloudy(A) Clear 06/10/2025 11:20 PM CDT [facility] SPECIFIC GRAVITY UA 1.021 1.003 - 1.035 06/10/2025 11:20 PM CDT [facility] PH UA 6.5 5.0 - 8.0 06/10/2025 11:20 PM CDT [facility] LEUKOCYTE ESTERASE UA 3+(A) Negative 06/10/2025 11:20 PM CDT [facility] NITRITE UA Negative Negative 06/10/2025 11:20 PM CDT [facility] PROTEIN UA 2+(A) Negative 06/10/2025 11:20 PM CDT [facility] GLUCOSE UA Trace(A) Negative 06/10/2025 11:20 PM CDT [facility] KETONES UA Negative Negative 06/10/2025 11:20 PM CDT [facility] UROBILINOGEN UA <2.0 <2.0 mg/dL 11:20 PM CDT [facility] BILIRUBIN UA Negative Negative 06/10/2025 11:20 PM CDT [facility] BLOOD UA Trace(A) Negative 06/10/2025 11:20 PM CDT [facility] WBC UA >100(A) 0 - 2 /hpf 06/10/2025 11:20 PM CDT [facility] RBC UA 6-10(A) 0 - 2 /hpf 06/10/2025 11:20 PM CDT [facility] BACTERIA UA 1+(A) Negative /hpf 06/10/2025 11:20 PM CDT [facility] EPITHELIAL CELLS, URINE 11-25(A) 0 - 5 /hpf 06/10/2025 11:20 PM CDT [facility] HYALINE CAST 3-5(A) None Seen, 0-2 /lpf 06/10/2025 11:20 PM CDT [facility] Urine URINE SPECIMEN OBTAINED BY CLEAN CATCH PROCEDURE / Unknown Collection / Unknown 06/10/2025 10:55 PM CDT 06/10/2025 11:00 PM CDT us Vivian Garcia FLOWERS SALESPERSON URINE ORDERABLES Final Result Performing Organization Address City/[facility]/ZIP Co de Phone Number [facility] CLIA # [id number] [address] [place] [address] * URINE CULTURE (06/10/2025 10:55 PM CDT) Pathologist [facility] CULTURE Polymicrobial growth consistent with normal urethral von and/or colonizing bacteria 06/12/2025 3:52 AM CDT [facility] Urine URINE SPECIMEN OBTAINED BY CLEAN CATCH PROCEDURE / Unknown Collection / Unknown 06/10/2025 10:55 PM CDT 06/10/2025 11:00 PM CDT us Zackary Gipson MD MICROBIOLOGY - GENERAL ORDER SARAH Final Result [facility] CLIA # [id number] [address] [place] [address] * (ABNORMAL) TROPONIN 2 HR, 5TH GEN (06/10/2025 1:38 PM CDT) TROPONIN T, 2 HR 5TH GEN 56(H) <=10 ng/L 06/10/2025 2:19 PM CDT [facility] DELTA 2HR TROPONIN T 1 See Interp. 06/10/2025 2:19 PM CDT [facility] Blood Venipuncture / Unknown 06/10/2025 1:38 PM CDT 06/10/2025 1:48 PM CDT Narrative [facility] - 06/10/2025 2:19 PM CDT Troponin elevated. Delta not changing. us Vivian Garcia FLOWERS SALESPERSON CHEMISTRY ORDERABLES Final Re sult [facility] CLIA # [id number] [address] [address] [place] [address] * XR CHEST PA OR AP 1 VW (06/10/2025 12:13 PM CDT) Anatomical Region Laterality Modality Chest Computed Radiogr aphy 06/10/2025 12:1 3 PM CDT Impressions 06/10/2025 2:00 PM CDT IMPRESSION: Please see below. Exam: XR CHEST PA OR AP 1 VW Date/Time of Exam: 06/10/2025 12:13 PM Reason For Exam: Chest Pain. Diagnosis: See Reason for Exam. Findings: The AP semierect study is compared to the exam of 09/14/2024. The dual-lead left subclavian pacemaker is unchanged in appearance. The lungs are well-inflated. There is no pneumothorax. The lungs are clear. The cardiac silhouette is generous in size. The pulmonary vessels are unremarkable. The bony thorax is grossly intact. Narrative Procedure Note Naa Stark MD - 06/10/2025 IMPRESSION: Please see below. Exam: XR CHEST PA OR AP 1 VW Date/Time of Exam: 06/10/2025 12:13 PM Reason For Exam: Chest Pain. Diagnosis: See Reason for Exam. Findings: The AP semierect study is compared to the exam of 09/14/2024. The dual-lead left subclavian pacemaker is unchanged in appearance. The lungs are well-inflated. There is no pneumothorax. The lungs are clear. The cardiac silhouette is generous in size. The pulmonary vessels are unremarkable. The bony thorax is grossly intact. Vivian Garcia NP DIAGNOSTIC IMAGING ORDERABLES Final Result * (ABNORMAL) TROPONIN BASELINE, 5TH GEN (06/10/2025 12:02 PM CDT) Pathologist [facility] TROPONIN T, BASELINE 5TH GEN 55(H) <=10 ng/L 06/10/2025 12:38 PM CDT [facility] Blood Venipuncture / Unknown 06/10/2025 12:02 PM CDT 06/10/2025 12:07 PM CDT Narrative [facility] - 06/10/2025 12:38 PM CDT Troponin elevated. Vivian Yudith Garcia FLOWERS SALESPERSON CHEMISTRY ORDERABLES Final [id number] [address] [place] [address] * (ABNORMAL) CBC WITH DIFFERENTIAL (06/10/2025 12:02 PM CDT) [facility] WBC 10.0 4.8 - 10.8 K/uL 06/10/2025 12:15 PM CDT [facility] RBC 4.33 4.20 - 5.40 M/uL 06/10/2025 12:15 PM CDT [facility] HEMOGLOBIN 12.4 12.0 - 16.0 g/dL 06/10/2025 12:15 PM CDT [facility] HEMATOCRIT 36.6 36.0 - 46.0 % 06/10/2025 12:15 PM CDT [facility] MCV 84.5 84.0 - 103.0 fL 06/10/2025 12:15 PM CDT [facility] MCH 28.6 27.0 - 34.0 pg 06/10/2025 12:15 PM [facility] MCHC 33.9 30.0 - 35.0 g/dL 06/10/2025 12:15 PM [facility] PLATELETS 324 140 - 440 K/uL 06/10/2025 12:15 PM [facility] MPV 9.8 8.9 - 12.8 fL 06/10/2025 12:15 PM [facility] RDW 16.7(H) 11.0 - 14.5 % 06/10/2025 12:15 PM [facility] [employer] [facility] RDW-STDEV 48.4 37.0 - 54.0 fL 06/10/2025 12:15 PM [facility] NEUTROPHILS 76(H) 42 - 75 % 06/10/2025 12:15 PM [facility] LYMPHOCYTES 12(L) 24 - 44 % 06/10/2025 12:15 PM [facility] MONOCYTES 11(H) 2 - 10 % 06/10/2025 12:15 PM [facility] EOSINOPHILS 0 0 - 7 % 06/10/2025 12:15 PM [facility] BASOPHILS 0 0 - 1 % 06/10/2025 12:15 PM [facility] IMMATURE GRANULOCYTES 1 0 - 2 % 06/10/2025 12:15 PM [facility] NEUTROPHIL ABSOLUTE 7.60 2.00 - 8.00 K/uL 06/10/2025 12:15 PM [facility] LYMPHOCYTE ABSOLUTE 1.19(L) 1.20 - 4.00 K/uL 06/10/2025 12:15 PM [facility] MONOCYTE ABSOLUTE 1.10(H) 0.10 - 0.60 K/uL 06/10/2025 12:15 PM [facility] EOSINOPHIL ABSOLUTE 0.02 0.00 - 0.70 K/uL 06/10/2025 12:15 PM [facility] BASOPHILS ABSOLUTE 0.03 0.00 - 0.20 K/uL 06/10/2025 12:15 PM CDT [facility] IMMATURE GRANULOCYTES ABSOLUTE 0.05 0.00 - 0.10 K/uL 06/10/2025 12:15 PM CDT [facility] SMEAR REVIEWED: NA - Not Applicable 06/10/2025 12:15 PM CDT [facility] Blood Venipuncture / Unknown 06/10/2025 12:02 PM CDT 06/10/2025 12:07 PM CDT us Vivian Yudith Christineehr FLOWERS SALESPERSON HEMATOLOGY ORDERABLES Final R esult Performing Organization Address [facility]/ZIP Co de Phone Number [facility] CLIA # [id number] [address] [place] [address] * (ABNORMAL) BRAIN NATRIURETIC PEPTIDE, BNP OR PROBNP (06/10/2025 12:02 PM CDT) PROBNP, N TERMINAL 6,345(H) 0 - 450 pg/mL 06/10/2025 12:38 PM CDT [facility] Comment: INTERPRETIVE COMMENT based on diagnosis: Diagnostic NT pro-BNP cutoffs for Heart Failure in the absence of renal failure is suggested for the following ranges <75 years: <125 pg/mL >=75 years: <450 pg/mL Exclusionary rule out cut-point for Acute Decompensated Heart Failure(ADHF) All ages: <300 pg/mL Diagnostic NT pro-BNP cutoffs for Acute Decompensated Heart Failure(ADHF) in the absence of renal failure is suggested for the following ages <50 years: > 450 pg/mL 50-75 years: > 900 pg/mL >75 years: >1800 pg/mL Blood Venipuncture / Unknown 06/10/2025 12:02 PM CDT 06/10/2025 12:07 PM CDT us Vivian D Emmettehr FLOWERS SALESPERSON CHEMISTRY ORDERABLES Final Re sult [facility] CLIA # [id number] [address] [address] [place] [address] * (ABNORMAL) COMPREHENSIVE METABOLIC PANEL (06/10/2025 12:02 PM CDT) SODIUM 138 136 - 145 mmol/L 06/10/2025 12:45 PM CDT [facility] POTASSIUM 3.4(L) 3.5 - 5.1 mmol/L 06/10/2025 12:45 PM T [facility] CHLORIDE 93(L) 98 - 107 mmol/L 06/10/2025 12:45 PM T [facility] CO2 29 22 - 29 mmol/L 06/10/2025 12:45 PM T [facility] CALCIUM 9.7 8.8 - 10.2 mg/dL 06/10/2025 12:45 PM T [facility] BUN 26(H) 8 - 23 mg/dL 06/10/2025 12:45 PM T [facility] CREATININE 1.12(H) 0.51 - 0.95 mg/dL 06/10/2025 12:45 PM T [facility] Comment:The GFR result is no t clinically significant on patients <18 or >70 years of age. GLUCOSE 143(H) 74 - 99 mg/dL 06/10/2025 12:45 PM T [facility] TOTAL PROTEIN 7.3 6.4 - 8.3 g/dL 06/10/2025 12:45 PM T [facility] ALBUMIN 3.8 3.5 - 5.2 g/dL 06/10/2025 12:45 PM T [facility] BILIRUBIN TOTAL 0.8 0.0 - 1.0 mg/dL 06/10/2025 12:45 PM T [facility] ALKALINE PHOSPHATASE 78 35 - 104 U/L 06/10/2025 12:45 PM T [facility] AST 18 10 - 35 U/L 06/10/2025 12:45 PM CDT [facility] ALT 15 <=35 U/L 06/10/2025 12:45 PM CDT [facility] GFR 50 mL/min/1. 73 sq meter 06/10/2025 12:45 PM T [facility] Comment:eGFR calculated with 2020 CKD-EPI equation. Vegetarian diet, extremely high or low muscle mass, and may affect results. Cystatin C with Glomerular Filtration Rate is a suitable alternative for these patients. ANION GAP 16 9 - 20 mmol/L 06/10/2025 12:45 PM CDT [facility] Blood Venipuncture / Unknown 06/10/2025 12:02 PM CDT 06/10/2025 12:07 PM CDT us Vivian Garcia FLOWERS SALESPERSON CHEMISTRY ORDERABLES Final Re sult [facility] # [id number] [address] [place] [address] * (ABNORMAL) MICROALBUMIN/CREATININE RATIO, RANDOM UR (08/01/2023 9:30 AM OIL FIELD CASER) Creatinine, Urine 12(L) 20 - 275 mg/dL [facility] MICROALBUMIN, URINE 5.7 See Note: mg/dL [facility] Comment: Reference Range: Reference Range Not established MICROALBUMIN/CREAT RATIO, UR 475(H) <30 mcg/mg creat [facility] Comment: The ADA defines abnormalities in albumin excretion as follows: Albuminuria Category Result (mcg/mg creatinine) Normal to Mildly increased <30 Moderately increased 30-299 Severely increased > OR = 300 The ADA recommends that at least two of three specimens collected within a 3-6 month period be abnormal before considering a patient to be within a diagnostic category. Test Performed at: [facility] [address] [place] [address] Marilynn Pisano MD Urine URINE SPECIMEN OBTAINED BY CLEAN CATCH PROCEDURE / Unknown 08/01/2023 9:30 AM OIL FIELD CASER 08/02/2023 8:04 AM OIL FIELD CASER Lion Garzon MD URINE ORDERABLES Final Result Performing Organization Address [facility] Co de Phone Number [facility] [phone] [facility] [id number] [place] [phone] * (ABNORMAL) HEMOGLOBIN A1C (08/01/2023 9:22 AM OIL FIELD CASER) HEMOGLOBIN A1C 7.6(H) <5.7 % of total Hgb [facility] Comment: For someone without known diabetes, [...] ESTIMATED AVERAGE GLUCOSE (MG/DL) 171 mg/dL [facility] ESTIMATED AVERAGE GLUCOSE (MMOL/L) 9.5 mmol/L [facility] Comment: Test Performed at: [facility] [address] [place] [address] Marilynn Pisano MD Blood 08/01/2023 9:22 AM OIL FIELD CASER 08/02/2023 5:55 AM OIL FIELD CASER Lion Garzon MD CHEMISTRY ORDERABLES F inal Result Performing Organization Address City/[facility]/ZIP Co de Phone Number [facility] [phone] [facility] [address] [place] [phone] * (ABNORMAL) LIPID PANEL (08/01/2023 9:22 AM OIL FIELD CASER) CHOLESTEROL 232(H) <200 mg/dL [facility] [...] equation in the estimation of LDL-C. Guerrero SS et al. DICK. 2013;310(19): 3968-4935 (http://education.[place]/faq/AXZ234) CHOL/HDL RATIO 4.8 <5.0 (calc) [facility] TOTAL NON-HDL CHOL(LDL+VLDL) 184(H) <130 mg/dL (calc) [facility] Comment: For patients with diabetes plus 1 major ASCVD risk factor, treating to a non-HDL-C goal of <100 mg/dL (LDL-C of <70 mg/dL) is considered a therapeutic option. Test Performed at: [facility] [id number] [facility] [place] [address] Marilynn Pisano MD Blood 08/01/2023 9:22 AM OIL FIELD CASER 08/02/2023 5:56 AM OIL FIELD CASER Lion Garzon MD CHEMISTRY ORDERABLES F inal Result [facility] [phone] [place] [address] [facility] [place] [address] from Last 3 Months or Most Recently Relevant to Health Maintenance Insurance [facility] [id number] RX [employer] RX Member Subscriber Plan / Payer (Ef fective 2021-Present) Name:Chela Rodriguez Relation to Subscriber:Self Name:Chela Rodriguez Payer ID:Not on file Group ID:[id number] Type:RX Medicare Part D Address: [address] [place] Advance Directives For more information, please contact: [phone] Documents on File Type Date Recorded Patient Apprentice Carpenter Expl anation Advance Directive Living Will 09/06/2018 12:04 PM Advance Directive Living Will * Full Code (Latest Code Status on File) Date Activated Date Inactivated Comments 09/14/2024 4:52 PM 09/15/2024 3:20 PM * Full Code Date Activated Date Inactivated Comments 09/13/2024 7:22 PM 09/14/2024 4:52 PM Care Teams Meat Curer Relationship Specialty Start Date End Date Devon Walton MD [address] [place] [phone] PCP - General 11/10/05
[2025-08-26 12:02] LABS: Hematocrit 39.2 % (36-47); Hemoglobin 14.20 g/dL (11.27-16.99); Mean Corpuscular HGB Conc 36.2 g/dL (30-55); Mean Corpuscular Hemoglobin 31.3 pg (27-33); Mean Corpuscular Volume 86.5 fl (85-98); Nucleated Red Blood Cells % 0 %; Platelet Count 416 10^3/cmm (157-399); Red Blood Count 4.53 10^6/uL (3.85-5.65); White Blood Count 11.02 10^3/uL (3.29-11.43)
--- NOTE | 2025-08-26 12:14 | ECG_ITS ---
[email or web address] Test Date: 2025-08-26 Pat Name: Chela Rodriguez Department: Room: Gender: Female Client Relationship Manager: : 1945 Requested By: Kisha Deleon Order Number: [id number] Nessa MD: YAMIL FUNES Measurements Intervals [place] Rate: 62 P: -70 [place]: 174 QRS: -75 QRSD: 217 T: 136 QT: 449 QTc: 459 Interpretive Statements ELECTRONIC ATRIAL PACEMAKER ELECTRONIC VENTRICULAR PACEMAKER ABNORMAL RHYTHM ECG Compared to ECG 03/03/2025 01:36:00 Atrial fibrillation no longer present ST (T wave) deviation no longer present Electronically Signed On 08-27-2025 11:57:26 SHOT COAT TENDER by YAMIL FUNES [email or web address]
[2025-08-26 12:26] LABS: Alanine Aminotransferase 36 U/L (0-33); Albumin Level 4.2 g/dL (3.5-5.2); Alkaline Phosphatase 106 U/L (35-105); Anion Gap 12.9 (5-19); Aspartate Amino Transferase 50 U/L (0-32); Blood Urea Nitrogen 37 mg/dL (8-23); Calcium 10.5 mg/dL (8.5-10.5); Chloride 83 mmol/L (98-107); Globulin 3.1 g/dL (1.3-4.6); Glucose 170 mg/dL (65-115); Magnesium 2.0 mg/dL (1.7-2.3); Osmolality Calculated 293 mOsm/kg (285-295); Sodium 135 mmol/L (136-145); Total Protein 7.3 g/dL (6.6-8.7)
[2025-08-26 12:27] LABS: Lactic Sepsis W/Reflex 1.2 mmol/L (0.5-2.2)
[2025-08-26 12:29] LABS: Carbon Dioxide 41 mmol/L (22-29); Potassium 1.9 mmol/L (3.5-5.1)
[2025-08-26 12:30] LABS: Troponin(5th) Baseline 100 ng/L (0-10)
--- NOTE | 2025-08-26 12:32 | ECG_ITS ---
[facility] Test Date: 2025-08-26 Pat Name: Chela Rodriguez Department: Room: Gender: Female Commercial Credit Reviewer: : 1945 Requested By: Kisha Deleon Order Number: [id number] Nessa MD: YAMIL FUNES Measurements Intervals [place] Rate: 61 P: -62 [place]: 177 QRS: -76 QRSD: 220 T: 0 QT: 453 QTc: 457 Interpretive Statements ELECTRONIC ATRIAL PACEMAKER ELECTRONIC VENTRICULAR PACEMAKER ABNORMAL RHYTHM ECG Compared to ECG 08/26/2025 12:14:59 No significant changes Electronically Signed On 08-28-2025 20:42:10 OEM SALES MANAGER by YAMIL FUNES [email or web address]
[2025-08-26 13:12] LABS: Glucose Urine UA Negative (Normal); Nitrate Urine Negative (Negative); Specific Gravity, Urine 1.012 (1.005-1.030)
[2025-08-26 13:17] LABS: Universal Test for UA Present (0)
[2025-08-26 13:24] LABS: UA Slide Review UA Slide Review Perf
[2025-08-26] MEDS: potassium chloride oral liq 20 mEq/15 mL UDC 40 MEQ PO (13:50)
[2025-08-26] MEDS: potassium chloride premix 100 ML 50 MEQ IV ×3 (13:51→23:45)
--- NOTE | 2025-08-26 14:00 | PC.NURSE ---
pt stating i cannot drink that potassium. i could drink a bottle of sheila levy easier than that and i haven't had a drink in 50 years. this nurse attempted to educate pt on the need for the oral potassium and patient states i absolutely will not drink that .
--- NOTE | 2025-08-26 15:07 | PC.PHAR ---
Pt states she no longer takes Baclofen 5mg, Carvedilol 3.125,or Metformin 500mg er.
[2025-08-26 16:24] LABS: Potassium 1.9 mmol/L (3.5-5.1)
--- NOTE | 2025-08-26 17:32 | ECG_ITS ---
[facility] Date: 2025-08[facility]26 Pat Name: Chela Rodriguez Department: Room: Gender: Female Mineralogy Teacher: : 1945 Requested By: Kisha Deleon Order Number: [id number] Nessa MD: YAMIL FUNES Measurements Intervals [place] Rate: 60 P: -58 [place]: 172 QRS: -75 QRSD: 221 T: 138 QT: 489 QTc: 489 Interpretive Statements ELECTRONIC ATRIAL PACEMAKER ELECTRONIC VENTRICULAR PACEMAKER ABNORMAL RHYTHM ECG Compared to ECG 08/26/2025 12:35:22 No significant changes Electronically Signed On 08-28-2025 20:39:47 ELECTRICIAN SHOP by YAMIL FUNES [id number]
[2025-08-26 17:43] LABS: Troponin 5 6HR 86.19 ng/L (0-10)
[2025-08-26 17:45] LABS: Troponin 5 6HR Delta -13.81 ng/L (0-12)
--- NOTE | 2025-08-26 19:09 | PC.NURSE ---
this nurse administered pts oral potassium-bicarb. pt took one drink and states i will not be drinking that . this nurse attempted to educated pt again, and pt states i will not drink it .
[2025-08-26] MEDS: potassium chloride premix 100 ML 25 MEQ IV (19:47)
--- NOTE | 2025-08-26 20:39 | PM.HP ---
Providers/Chief Complaint Admitting Physician: Toan Cabello MD Primary Care Provider: Devon Walton MD Chief Complaint: WEAKNESS History of Present Illness Chela Rodriguez is a 79 year old female With history of hypertension, potential congestive heart failure record medications, including furosemide and carvedilol. Patient is a poor historian, unclear about her medical diagnoses. She takes heavy diuretics including metolazone furosemide, has been taking 60 mEq of potassium daily. Was feeling lethargic at home, told by primary care to come to the hospital. At the hospital she seemed to have relatively normal labs, magnesium was low normal at 2.0 potassium was severely abnormal 1.9. No EKG changes, heart rate around 60. Patient is paced. Being admitted for severe for refractory hypokalemia potentially due to renal potassium wasting in setting of chloride depletion metabolic alkalosis. See differential in assessment and plan. . Patient tells me that she has very low appetite for the past 6 months, has lost 25 pounds approximately due to unknown reason for poor p.o. intake. Could be contributing factor. Patient is awake alert, comes conversant. I tried to give her potassium bicarbonate as a fluid orally, but patient did not like the taste. Medications/Allergies Home Medications ?Medication ?Instructions ?Recorded ?Confirmed ?Last Taken ?Type nitroglycerin 0.4 mg sublingual 0.4 mg sublingual Q5M PRN Chest 10/07/23 08/26/25 09/02/24 Rx tablet Pain #25 tabs albuterol sulfate 90 mcg/actuation 2 puff inhalation Q6H PRN 01/10/25 08/26/25 Unknown Rx aerosol inhaler (Ventolin HFA) shortness of breath or wheezing #8.5 grams blood sugar diagnostic (allyveTouch #100 strips 01/18/25 08/26/25 Unknown Rx Verio test strips) gabapentin 600 mg tablet 600 mg PO TID #90 tabs 02/18/25 08/26/25 08/26/25 Rx lancets 33 gauge (allyveTouch Delica #100 ea 02/18/25 08/26/25 Unknown Rx Plus Lancet) amiodarone 200 mg tablet (Pacerone) 200 mg PO BID #60 tabs 03/18/25 08/26/25 08/26/25 Rx potassium chloride 20 mEq 60 meq (3 x 20 mEq) PO BID #120 04/04/25 08/26/25 08/26/25 Rx tablet,extended release tabs ondansetron 4 mg disintegrating 4 mg PO Q6H PRN nausea and 05/17/25 08/26/25 Unknown Rx tablet vomiting #20 tabs furosemide 40 mg tablet (Lasix) 40 mg PO DAILY #30 tabs 07/12/25 08/26/25 08/26/25 Rx hydrocodone 7.5 mg-acetaminophen 1 tab PO Q6H PRN Pain 1 month #90 07/29/25 08/26/25 Unknown Rx 325 mg tablet tabs ferrous sulfate 325 mg (65 mg 325 mg PO TID #90 tabs 08/11/25 08/26/25 08/26/25 Rx iron) tablet baclofen 5 mg tablet 5 mg PO DAILY 08/26/25 08/26/25 Unknown History carvedilol 3.125 mg tablet 3.125 mg PO BID 08/26/25 08/26/25 Unknown History clopidogrel 75 mg tablet 75 mg PO DAILY 08/26/25 08/26/25 08/26/25 History isosorbide mononitrate 30 mg 30 mg PO BID 08/26/25 08/26/25 08/26/25 History tablet,extended release 24 hr metformin 500 mg tablet,extended 1,000 mg PO QAM 08/26/25 08/26/25 Unknown History release 24 hr metolazone 5 mg tablet 5 mg PO DAILY 08/26/25 08/26/25 08/26/25 History Allergies Allergy/AdvReac Type Severity Reaction Status Date / Time RON Inhibitors Allergy Angioedema Verified 03/13/25 14:27 diltiazem (From Cardizem) Allergy unknown Verified 03/13/25 14:27 lovastatin Allergy bone and Verified 03/13/25 14:27 muscle pain meperidine (From Demerol) Allergy itching Verified 03/13/25 14:27 methadone Allergy unknown Verified 03/13/25 14:27 pentazocine (From Talwin) Allergy nausea, Verified 03/13/25 14:27 vomiting metoprolol AdvReac Severe bradycardia Verified 03/13/25 14:27 alendronate sodium (From AdvReac Intermediate swelling Verified 03/13/25 14:27 Fosamax) codeine AdvReac Intermediate headache Verified 03/13/25 14:27 erythromycin base AdvReac Intermediate Unknown Verified 03/13/25 14:27 losartan AdvReac Intermediate dizzy Verified 03/13/25 14:27 methotrexate AdvReac Intermediate nausea/ Verified 03/13/25 14:27 diarrhea pravastatin (From Pravachol) AdvReac Intermediate cramps Verified 03/13/25 14:27 PFSH Acute PFSH: Medical History (Updated 08/26/25 @ 12:42 by Kisha Glover MD) Coronary artery disease Diabetes type 2, uncontrolled Congestive heart failure Paroxysmal atrial fibrillation with RVR Obstructive sleep apnea Diabetes mellitus type 2, controlled Diverticulosis Mesenteric ischemia Hepatomegaly Sleep related hypoxia Latent tuberculosis Completed treatment in 2020 Shingles Immunization counseling Latent tuberculosis by blood test Tenosynovitis of ankle Psoriatic arthritis High risk medication use Peroneal tendinitis of both lower legs Osteoarthritis Rotator cuff arthropathy of right shoulder Psoriasis Surgical History History of eye surgery Removal of scar tissue History of tonsillectomy History of appendectomy History of tubal ligation History of cholecystectomy H/O: hysterectomy Family History Mother Diabetes Hypertension Heart disease Brother Hypertension Sister Hypertension Grandmother Stroke Other Cancer Social History Smoking and tobacco/nicotine status: never used tobacco/nicotine Alcohol intake: never Substance/Drug Use: never Additional social history: 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 she wants full CODE STATUS Previous occupational history: TOW MOTOR DRIVER and oncology Vitals/I&O/Wt Last Vital Signs Temp 98.4 F 08/26/25 11:35 Pulse 60 08/26/25 17:57 Resp 18 08/26/25 17:57 BP 143/84 08/26/25 17:57 Pulse Ox 97 08/26/25 17:57 O2 Del Method Nasal Cannula 08/26/25 17:57 O2 Flow Rate 2 08/26/25 17:57 08/26/25 08/26/25 08/26/25 06:59 14:59 22:59 Intake Total 700.000 / 700.000 Balance 700.000 / 700.000 Weight last 48 hrs Weight 63.503 kg Physical Exam Const: COMMON NORMALS: patient oriented x3 and alert GENERAL APPEARANCE: cooperative ORIENTATION/CONSCIOUSNESS: Yes awake HENMT: COMMON NORMALS: oropharynx normal Neck/C-Spine: COMMON NORMALS: no JVD Resp: COMMON NORMALS: normal respiratory effort and clear to auscultation bilaterally AUSCULTATION: clear to auscultation bilaterally Cardio: COMMON NORMALS: no JVD, regular rhythm, S1 normal heart sound present, S2 normal heart sound present and No murmurs present (Cardio) RHYTHM: regular rhythm HEART SOUNDS: S1 normal heart sound present and S2 normal heart sound present GI: COMMON NORMALS: Normal to inspection, nondistended, normoactive bowel sounds present, Soft to palpation and non-tender PALPATION: Yes Soft to palpation Extremity: COMMON NORMALS: no joint enlargement and no pedal edema Neuro: COMMON NORMALS: patient oriented x3 and moves all extremities SENSORIUM/ORIENTATION: Yes alert Skin: COMMON NORMALS: no rashes or lesions noted GENERAL SKIN EXAM: no rashes or lesions noted Data 08/26/25 11:44 08/26/25 15:34 Micro: Microbiology 08/26/25 11:46 Blood Culture - Preliminary Blood SPECIMEN COLLECTED 08/26/25 11:44 Blood Culture - Preliminary Blood SPECIMEN COLLECTED A&P Assessment and plan 1. Hypokalemia: Plan: Severe refractory hypokalemia likely due to renal potassium wasting in the setting of chloride depletion metabolic alkalosis, possibly from ? Volume depletion ? Secondary hyperaldosteronism ? Alkalemia induced intracellular potassium shift Plan: Continue repletion of intravascular volume with chloride for renal reabsorption, i.e. normal saline ? Could continue to aggressively replace potassium IV KCl with concurrent magnesium repletion 4 mg IV magnesium sulfate. ? Continue to hold any contributing diuretics or alkalosis promoting agents ? Continue oral potassium repletion recheck CMP, magnesium levels in a.m. If remains refractory will obtain urine electrolyte studies. PDMP PDMP Reviewed: Not Reviewed Attestations Medical Necessity Statement*: For electrolyte dysfunction, likely to improve overnight, patient is admitted for observation not to exceed 2 midnights. Diagnoses Hypokalemia E87.6
[2025-08-26 21:22] LABS: Anion Gap 12.3 (5-19); Blood Urea Nitrogen 34 mg/dL (8-23); Calcium 9.6 mg/dL (8.5-10.5); Carbon Dioxide 37 mmol/L (22-29); Chloride 87 mmol/L (98-107); Glucose 172 mg/dL (65-115); Osmolality Calculated 290 mOsm/kg (285-295); Sodium 134 mmol/L (136-145)
[2025-08-26 21:28] LABS: Potassium 2.3 mmol/L (3.5-5.1)
--- NOTE | 2025-08-26 22:30 | PC.NURSE ---
meds late due to potassium running at 25 ml/hr instead of 50ml/hr for patient tolerance.
[2025-08-26] MEDS: magnesium sulfate premix 4 GM/100 ML PREMIX IV (22:34)
--- NOTE | 2025-08-26 22:46 | PC.NURSE ---
pt able to tolerate 40 meq K+ PO crushed in applesauce.
[2025-08-27 00:01] VITALS: PULSE 60
[2025-08-27] MEDS: potassium chloride premix 100 ML 25 MEQ IV ×2 (02:02→06:07)
[2025-08-27 04:00] VITALS: BP 146/77; PULSE 60; RESP 16; TEMP 36.7; O2SAT 97
[2025-08-27 05:33] VITALS: PULSE 60
[2025-08-27 05:42] LABS: Alanine Aminotransferase 34 U/L (0-33); Albumin Level 3.6 g/dL (3.5-5.2); Alkaline Phosphatase 86 U/L (35-105); Anion Gap 12.8 (5-19); Aspartate Amino Transferase 48 U/L (0-32); Blood Urea Nitrogen 29 mg/dL (8-23); Calcium 9.5 mg/dL (8.5-10.5); Carbon Dioxide 35 mmol/L (22-29); Chloride 91 mmol/L (98-107); Globulin 3.0 g/dL (1.3-4.6); Glucose 169 mg/dL (65-115); Magnesium 3.1 mg/dL (1.7-2.3); Osmolality Calculated 292 mOsm/kg (285-295); Sodium 136 mmol/L (136-145); Total Protein 6.6 g/dL (6.6-8.7)
[2025-08-27 05:43] LABS: Potassium 2.8 mmol/L (3.5-5.1)
[2025-08-27 06:13] VITALS: BMI 24.7
[2025-08-27 06:27] VITALS: BMI 24.3
[2025-08-27 08:27] VITALS: BP 152/76; PULSE 69; RESP 18; TEMP 36.5; O2SAT 97
[2025-08-27 11:09] VITALS: BP 124/82; PULSE 63; RESP 17; TEMP 36.8; O2SAT 98
--- NOTE | 2025-08-27 12:40 | P.DS_ITS ---
Discharge Providers Date of Admission: 08/26/25 13:18 Date of Discharge: August 27, 2025 Attending Provider at Admission: Toan Cabello MD Attending Provider at Discharge: Toan Cabello MD Primary Care Provider: Devon Walton MD Diagnoses at Discharge Discharge Diagnosis 1. Hypokalemia: Reason for Visit Reason for Visit: WEAKNESS Brief History: Chela Rodriguez is a 79 year old female With history of hypertension, potential congestive heart failure record medications, including furosemide and carvedil ol. Patient is a poor historian, unclear about her medical diagnoses. She takes heavy diuretics including metolazone furosemide, has been taking 60 mEq of potassium daily. Was feeling lethargic at home, told by primary care to come to the hospital. At the hospital she seemed to have relatively normal labs, magnesium was low normal at 2.0 potassium was severely abnormal 1.9. No EKG changes, heart rate around 60. Patient is paced. Being admitted for severe for refractory hypokalemia potentially due to renal potassium wasting in setting of chloride depletion metabolic alkalosis. See differential in assessment and plan. . Patient tells me that she has very lo w appetite for the past 6 months, has lost 25 pounds approximately due to unknown reason for poor p.o. intake. Could be contributing factor. Patient is awake alert, comes conversant. I tried to give her potassium bicarbonate as a fluid orally, but patient did not like the taste. Hospital Course Hospital Course Severe refractory hypokalemia likely due to renal potassium wasting in the setting of chloride depletion metabolic alkalosis, possibly from ? Volume depletion ? Secondary hyperaldosteronism ? Alkalemia induced intracellular potassium shift After IV sodium chloride was infused, and patient received approximately 120 mEq of p.o. potassium, plus IV, plus IV magnesium sulfate, and with holding the diuretics, potassium normalized. Patient stated she felt much better on hospital day 2. I provided recommendations for the patient, at least in the meantime to withhold all diuretics and to continue the potassium supplement. She should also take a magnesium supplement, and taken more salt to prevent chloride potassium wasting. Any further management, advised patient to follow-up with her primary care doctor for medication management within 1 week. Basic metabolic panel ordered for 1 week from now. Physical Exam Const: COMMON NORMALS: patient oriented x3 and alert GENERAL APPEARANCE: c ooperative ORIENTATION/CONSCIOUSNESS: Yes awake HENMT: COMMON NORMALS: oropharynx normal Neck/C-Spine: COMMON NORMALS: no JVD Resp: COMMON NORMALS: normal respiratory effort and clear to auscultation bilaterally AUSCULTATION: clear to auscultation bilaterally Cardio: COMMON NORMALS: no JVD, regular rhythm, S1 normal heart sound present, S2 normal heart sound present and No murmurs present (Cardio) RHYTHM: regular rhythm HEART SOUNDS: S1 normal heart sound present and S2 normal heart sound present GI: COMMON NORMALS: Normal to inspection, nondistended, normoactive bowel sounds present, Soft to palpation and non-tender PALPATION: Yes Soft to palpation Extremity: COMMON NORMALS: no joint enlargement and no pedal edema Neuro: COMMON NORMALS: patient oriented x3 and moves all extremities SENSORIUM/ORIENTATION: Yes alert Skin: COMMON NORMALS: no rashes or lesions noted GENERAL SKIN EXAM: no rashes or lesions noted Discharge Data Studies Completed and Pending Pending at discharge Category Date Time Status Blood Culture Stat Lab 08/26/25 11:46 Results Potassium Timed Lab 08/27/25 13:00 Ordered Laboratory Results WBC 11.02 10^3/uL (3.29-11.43) 08/26/25 11:44 RBC 4.53 10^6/uL (3.85-5.65) 08/26/25 11:44 Hgb 14.20 g/dL (11.27-16.99) 08/26/25 11:44 Hct 39.2 % (36-47) 08/26/25 11:44 MCV 86.5 fl (85-98) 08/26/25 11:44 MCH 31.3 pg (27-33) 08/26/25 11:44 MCHC 36.2 g/dL (30-55) 08/26/25 11:44 RDW 12.8 % (12.1-15.1) 08/26/25 11:44 Plt Count 416 10^3/cmm (157-399) H 08/26/25 11:44 MPV 10.1 fL (7.4-10.4) 08/26/25 11:44 Neut % (Auto) 81.3 % 08/26/25 11:44 Lymph % (Auto) 10.4 % 08/26/25 11:44 [place] % (Auto) 6.4 % 08/26/25 11:44 Eos % (Auto) 1.2 % 08/26/25 11:44 Baso % (Auto) 0.3 % 08/26/25 11:44 Neut # (Auto) 8.96 10^3/uL (1.8-7.7) H 08/26/25 11:44 Lymph # (Auto) 1.2 10^3/uL (0.8-4.8) 08/26/25 11:44 [place] # (Auto) 0.7 10^3/uL (0.2-0.9) 08/26/25 11:44 Eos # (Auto) 0.1 10^3/uL (0.0-0.8) 08/26/25 11:44 Baso # (Auto) 0.0 10^3/uL (0.0-0.1) 08/26/25 11:44 Nucleated RBC % (auto) 0 % 08/26/25 11:44 Nucleated RBCs # 0.0 /100WBC 08/26/25 11:44 Sodium 136 mmol/L (136-145) 08/27/25 04:25 Potassium 2.8 mmol/L (3.5-5.1) L* D 08/27/25 04:25 Chloride 91 mmol/L (98-107) L 08/27/25 04:25 Carbon Dioxide 35 mmol/L (22-29) H 08/27/25 04:25 Anion Gap 12.8 (5-19) 08/27/25 04:25 BUN 29 mg/dL (8-23) H 08/27/25 04:25 Creatinine 0.9 mg/dL (0.5-0.9) 08/27/25 04:25 GFR Calculation Not Reportable 08/27/25 04:25 Glucose 169 mg/dL (65-115) H 08/27/25 04:25 Calculated Osmolality 292 mOsm/kg (285-295) 08/27/25 04:25 Lactic Acid 1.2 mmol/L (0.5-2.2) 08/26/25 11:44 Calcium 9.5 mg/dL (8.5-10.5) 08/27/25 04:25 Phosphorus 2.2 mg/dL (2.5-4.5) L 08/27/25 04:25 Magnesium 3.1 mg/dL (1.7-2.3) H 08/27/25 04:25 Total Bilirubin 1.1 mg/dL (0.15-1.2) 08/27/25 04:25 AST 48 U/L (0-32) H 08/27/25 04:25 ALT 34 U/L (0-33) H 08/27/25 04:25 Alkaline Phosphatase 86 U/L (35-105) 08/27/25 04:25 Troponin T Baseline 100 ng/L (0-10) H 08/26/25 11:44 Troponin T 60 Minute 98.34 ng/L (0-10) H 08/26/25 12:51 Delta Troponin T -1.66 ABS# (0-10) L 08/26/25 12:51 Troponin T Hi Sens 6Hr 86.19 ng/L (0-10) H 08/26/25 17:20 Troponin T Hi Sens 6Hr Delta -13.81 ng/L (0-12) L 08/26/25 17:20 Total Protein 6.6 g/dL (6.6-8.7) 08/27/25 04:25 Albumin 3.6 g/dL (3.5-5.2) 08/27/25 04:25 Globulin 3.0 g/dL (1.3-4.6) 08/27/25 04:25 Urine Color Yellow (Yellow) 08/26/25 12:34 Urine Appearance Clear (CLEAR) 08/26/25 12:34 Urine pH 6.5 (5-7) 08/26/25 12:34 Ur Specific [place] 1.012 (1.005-1.030) 08/26/25 12:34 Urine Protein 1+ (Negative) A 08/26/25 12:34 Urine Glucose (UA) Negative (Normal) 08/26/25 12:34 Urine Ketones Negative (Negative) 08/26/25 12:34 Urine Blood Negative (Negative) 08/26/25 12:34 Urine Nitrate Negative (Negative) 08/26/25 12:34 Urine Bilirubin Negative (Negative) 08/26/25 12:34 Urine Urobilinogen 1.0 mg/dL (Negative) 08/26/25 12:34 Ur Leukocyte Esterase Trace (Negative) A 08/26/25 12:34 Urine RBC 0-2 /hpf (0-2) 08/26/25 12:34 Urine WBC 0-5 /hpf (0-5) 08/26/25 12:34 Ur Squamous Epith Cells 0-5 /hpf (0-5) 08/26/25 12:34 Ur Renal Epithelial Cell 0-4 /hpf 08/26/25 12:34 Amorphous Sediment Not Reportable 08/26/25 12:34 Urine Bacteria None seen /hpf (NONE) 08/26/25 12:34 Hyaline Casts 30.18 /lpf 08/26/25 12:34 Vitals Last Vital Signs Temp 98.2 F 08/27/25 11:09 Pulse 63 08/27/25 11:09 Resp 17 08/27/25 11:09 BP 124/82 08/27/25 11:09 Pulse Ox 98 08/27/25 11:09 O2 Del Method Nasal Cannula 08/27/25 11:09 O2 Flow Rate 2 08/27/25 04:00 Discharge Plan Discharge Patient Disposition: Home Health Service Condition: Stable Prescriptions: New magnesium gluconate 12.5 mg magne- sium (250 mg) tablet 250 mg PO DAILY 90 Days Qty: 1 0RF Continued amiodarone [Pacerone] 200 mg tablet 200 mg PO BID Qty: 60 11RF potassium chloride 20 mEq tablet extended release 60 meq PO BID Qty: 120 11RF albuterol sulfate [Ventolin HFA] 90 mcg/actuation HFA aerosol inhaler 2 puff inhalation Q6H PRN (Reason: shortness of breath or wheezing) Qty: 8.5 11RF (DME) lancets [OneTouch Delica Plus Lancet] 33 gauge misc See Rx Instructions .Route Qty: 100 3RF Rx Instructions: As directed (DME) OneTouch Verio test strips Strip See Rx Instructions .ROUTE .COMPLEX Qty: 100 3RF Dose Instruction: USE DIRECTED EVERY DAY Rx Instructions: USE DIRECTED EVERY DAY gabapentin 600 mg tablet 600 mg PO TID Qty: 90 11RF ondansetron 4 mg tablet,disintegrating 4 mg PO Q6H PRN (Reason: nausea and vomiting) Qty: 20 11RF hydrocodone-acetaminophen 7.5-325 mg tablet 1 tab PO Q6H PRN (Reason: Pain) 30 Days Qty: 90 0RF nitroglycerin 0.4 mg Tablet, Sublingual 0.4 mg sublingual Q5M PRN (Reason: Chest Pain) Qty: 25 0RF isosorbide mononitrate 30 mg tablet extended release 24 hr 30 mg PO BID clopidogrel 75 mg tablet 75 mg PO DAILY carvedilol 3.125 mg tablet 3.125 mg PO BID metformin 500 mg tablet extended release 24 hr 1,000 mg PO QAM baclofen 5 mg tablet 5 mg PO DAILY Discontinued furosemide [Lasix] 40 mg tablet 40 mg PO DAILY Qty: 30 11RF ferrous sulfate 325 mg (65 mg iron) tablet 325 mg PO TID Qty: 90 3RF metolazone 5 mg tablet 5 mg PO DAILY Other Ambulatory Orders: Basic Metabolic Panel (Routine) Timeframe: 1 Week Facility: [facility] - Location: Lab - Main Lab Ordered By: Toan Cabello Referrals: Devon Walton MD [Primary Care Provider, [facility]] Discharge Diet: Usual diet Discharge Activity: Increase activity as tolerated Patient Instructions: Hypokalemia (DC), Patient Portal & Lynn Instructions Activity Restrictions/Additional Instructions: I think your severe hypokalemia, which means low potassium, is a combination of your poor appetite and your use of the diuretics, especially the commendation of the furosemide and metolazone. For now, I strongly suggest you discontinue those diuretics until you follow-up with your primary care doctor. You can continue the potassium supplement, as well as a magnesium supplement. If the pharmacy does not have that specific prescription, you can take a magnesium supplement [id number]. Just take them both daily. What might be contributing to your poor appetite is the fact that you are scheduled to take iron tablets 3 times a day, which can cause a lot of GI upset and constipation. So I suggest you stop taking the iron supplement, or if you modest take it 1 carlo e but every other day, not 3 times a day as currently prescribed. I ordered you a follow-up blood test that you can get in 1 week to check your potassium levels. Thank you for visiting [facility]. Discharge Attestations Time Spent in Discharge Care*: greater than 30 min Quality Metrics Clinical Quality Measures [ No reported AMI, CVA or VTE this stay] Coding Level of Care Code 27783 Diagnoses Hypokalemia E87.6
[2025-08-27 13:14] LABS: Potassium 3.4 mmol/L (3.5-5.1)
== END 2025-08-27 16:30 | disposition home health service (06) ==
LOC: ER 19:06 → MEDSURG 22:37
PROVIDERS: Admitting Provider Internal Medicine; Emergency Provider Emergency Medicine; PCP Family Medicine; Visit Provider Internal Medicine
DX: E87.6 Hypokalemia (principal); Z79.02 Long term (current) use of antithrombotics/antiplatelets; Z79.891 Long term (current) use of opiate analgesic; Z79.84 Long term (current) use of oral hypoglycemic drugs; I10 Essential (primary) hypertension; E11.9 Type 2 diabetes mellitus without complications
CPT/HCPCS: 36415; 80048; 80053; 81001; 83605; 83735; 84100; 84132; 84484; 85025; 87040; 93005; 96372; G0378; J1650; J3475; J3480; J7030; J7040; J9999